=== PATIENT | female | born 1955 | race Caucasian/White ===

== ENCOUNTER 2024-07-10 09:46 | Outpatient (CLI) | payer MEDICARE, OTHER, SELFPAY ==
--- OUTSIDE RECORDS SUMMARY | 2024-07-10 10:50 | XMS_ITS | Clinical Summary ---
Author Organization [facility] Address [address] [place] [address] Phone Care Team Providers Care Lease Examiner Name Role Phone Unavailable Unavailable Unavailable Reason for Visit and Chief Complaint gynecologic annual exam - The Chief Complaint is: Annual Problems Includes: Problems addressed during this encounter and other active Problems All Visits Onset Date Resolved Date Provider Condition S tatus Chronic Obstructive Pulmonary Disease 11/17/2018 ROWAN INGRAM NP-BC Active Last Documented On 9 2:25PM ; [facility] Previous Colposcopy 01/15/2013 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 HYPERLIPIDEMIA NEC/NOS 01/20/2012 CE BIRCH MD Active Last Documented On 2 3:01PM ; [facility] HYPERTENSION NOS 12/09/2011 CE BIRCH MD Ac tive Last Documented On 2 10:05AM ; [facility] Plan of Treatment - Follow-up visit 1 year or as needed - Last Documented On 11/16/2017 1:10PM ; [facility] - Clinical summary provided to patient - Last Documented On 11/16/2017 1:10PM ; [facility] Instructions to patient Instructions for patient : B reast Self Exam discussed Last Documented On 8 12:16PM ; [facility] Lose weight Last Documented On 8 12:17PM ; [facility] Colonoscopy Handout given to patient Last Documented On 8 12:17PM ; [facility] Education and Decision Aids were provided during visit for: Patient Education: Daily rashi cium and vitamin D Last Documented On 8 12:16PM ; [facility] Patient Education: weight be aring exercise Last Documented On 8 12:16PM ; [facility] Smoking cessation advised Last Documented On 8 12:47PM ; [facility] Assessments Includes: Assessments from this encounter Findings - NORMAL FEMALE EXAM - Last Documented On 11/16/2017 1:10PM ; [facility] - Screening Malig. Neoplasm Rectum - Last Documented On 11/16/2017 1:10PM ; [facility] Instructions Includes: Instructions from this encounter Instructions to patient Instructions for patient : B reast Self Exam discussed Last Documented On 8 12:16PM ; [facility] Lose weight Last Documented On 8 12:17PM ; [facility] Colonoscopy Handout given to patient Last Documented On 8 12:17PM ; [facility] Education and Decision Aids were provided during visit for: Patient Education: Daily rashi cium and vitamin D Last Documented On 8 12:16PM ; [facility] Patient Education: weight be aring exercise Last Documented On 8 12:16PM ; [facility] Smoking cessation advised Last Documented On 8 12:47PM ; [facility] Medical Equipment - Implanted Devices Includes: Current Devices No Medical Equipment Recorded Medications Includes: Medications discussed during this encounter and other current Medications Discontinued / Stopped on this date on 12/09/2011 Tribenzor 40-10-25 MG OR TABS Provider: Diagnosis: Last Documented On 8 12:42PM By DONALDO DOYLE ; [facility] Current Medications (continue as prescribed) Co Q10 100MG Oral Capsule 11/17/2018 Provider: Diagnosis: Last Documented On 9 2:24PM By DESHAWN DOYLE ; [facility] Tribenzor 40-10-25MG Oral Tablet 11/17/2018 Provider : Diagnosis: Last Documented On 9 2:24PM By DESHAWN DOYLE ; [facility] Omeprazole 20MG Oral Tablet Delayed Release 2017 Provider: Diagnosis: Last Documented On 8 12:41PM By DONALDO DOYLE ; [facility] Bystolic 20MG Oral Tablet 11/16/2017 Provider: Diagnosis: Last Documented On 8 12:41PM By DONALDO DOYLE ; [facility] Fetzima 80MG Oral Capsule Extended Release 24 Hour 11/2017 Provider: Diagnosis: Last Documented On 8 12:42PM By DONALDO DOYLE ; [facility] Biotin 5000MCG Oral Capsule 11/16/2017 Provider: Diagnosis: Last Documented On 8 12:42PM By DONALDO DOYLE ; [facility] Fish Oil 1000MG Oral Capsule 11/16/2017 Provider : Diagnosis: Last Documented On 8 12:42PM By DONALDO DOYLE ; [facility] Oamdegwqjj-Zdhxjgdupo-JQHC 40-10-25MG Oral Tablet 11/2017 Provider: Diagnosis: Last Documented On 8 12:43PM By DONALDO DOYLE ; [facility] Welchol 625 MG OR TABS 01/15/2013 Provider: Diagnosis: Last Documented On 01/15/2013 1:05PM By DONALDO DOYLE ; [facility] Bystolic 5 MG OR TABS 12/09/2011 Provider: Diagnosis: Last Documented On 12/09/2011 10:03AM By AV CORCORAN ; [facility] Spiriva HandiHaler 18 MCG IN CAPS 12/09/2011 Provide r: Diagnosis: Last Documented On 12/09/2011 10:04AM By AV CORCORAN ; [facility] Past Medications on file Keflex 500 MG OR CAPS 01/30/2008 - 02/06/2008 Provider : Diagnosis: Last Documented On 06/09/2009 12:22PM By VIRIDIANA PINTO ; [facility] Medications Administered Includes: Administered Medications from this encounter No Administered Medications Recorded Vital Signs Includes: Vital Signs from this encounter Vital Name 11/16/2017 12:51P Blood Pressure Sitting L 148/70 BP Cuff Size Large Height (in) 62 Weight (lb) 200 Body Mass Index (kg/m2) 36.6 Body Surface Area (m2) 1.9 Last Documented: On 11/16/2017 12:54P M ; [facility] Results Includes: Results discussed during this encounter No Results Recorded For Specified Dates History of Present Illness Includes: History of Present Illness from this encounter HPI PREM GAMBINO is a 62 year old female. - Medication list reviewed - PRIMARY CARE PROVIDER : Dr Turcios Social History Description Last Updated Alcohol use 11/16/2017 Last Documented On 8 1:10PM ; [facility] In monogamous relationship 11/16/2017 Last Documented On 8 1:10PM ; [facility] Non-smoker 11/16/2017 Last Documented On 8 1:10PM ; [facility] Not using drugs 11/16/2017 Last Documented On 8 1:10PM ; [facility] Sexually active with 1 partners in the l ast year 11/16/2017 Last Documented On 8 1:10PM ; [facility] Smoking status : Current everyday smoker 11/16/2017 Last Documented On 8 1:10PM ; [facility] Rastafarian affiliation HINDU 8 Last Documented On 8 1:10PM ; [facility] Procedures and Surgical History Includes: Procedures from this encounter Procedures Code Diagnosis Performing Provider Service L ocation Service Date low fat diet Last Documented On 8 12:17PM ; [facility] fecal occult blood test was negative 38222 Last Documented On 8 12:16PM ; [facility] normal history of Pap smear of cervix Last Documented On 8 12:56PM ; [facility] Cervical Pap Smear performed [id number] Last Documented On 8 12:17PM ; [facility] Surgical History Last Updated Surgical / procedural histor y orthroscopic left knee surg ~d&c ~bile duct 11/16/2017 Last Documented On 8 1:10PM ; [facility] Dilation + Curettage 11/16/2017 Last Documented On 8 1:10PM ; [facility] Medical History Includes: Medical History addressed during this encounter Description Last Updated History of complete colonoscopy [address] chaney repeat in 10 years 11/16/2017 Last Documented On 8 1:10PM ; [facility] Result: normal @cne 11/16/2017 Last Documented On 8 1:10PM ; [facility] History of chronic obstructive pulmonary disease 11/16/2017 Last Documented On 8 1:10PM ; [facility] section 11/16/2017 Last Documented On 8 1:10PM ; [facility] Sexually active 11/16/2017 Last Documented On 8 1:10PM ; [facility] Vaginal delivery 11/16/2017 Last Documented On 8 1:10PM ; [facility] History of Pap smear done 01/15/201311/2017 Last Documented On 8 1:10PM ; [facility] History of screening mammogram was perfo rmed 09/201711/16/2017 Last Documented On 8 1:10PM ; [facility] Result: normal 11/16/2017 Last Documented On 8 1:10PM ; [facility] FREQUENT UTI'S ~D & C 11/16/2017 Last Documented On 8 1:10PM ; [facility] 3 11/16/2017 Last Documented On 8 1:10PM ; [facility] History of benign essential hypertension 11/16/2017 Last Documented On 8 1:10PM ; [facility] History of hyperlipidemia 11/16/2017 Last Documented On 8 1:10PM ; [facility] History of menopause lmp more than 5 yrs ago 11/16/2017 Last Documented On 8 1:10PM ; [facility] LMP: 2003 11/16/2017 Last Documented On 8 1:10PM ; [facility] Para 3 11/16/2017 Last Documented On 8 1:10PM ; [facility] Family History Includes: Family History addressed during this encounter Description Last Updated Maternal history of diabetes mellitus si ster, mother 11/16/2017 Last Documented On 8 1:10PM ; [facility] Maternal history of hypertension mother 11/16/2017 Last Documented On 8 1:10PM ; [facility] Paternal history of family history of he art disease father 11/16/2017 Last Documented On 8 1:10PM ; [facility] Review of Systems Includes: Review of Systems from this encounter Gastrointestinal: No pelvic pain. Genitourinary: No postmenopausal bleeding. No vaginal discharge. Mental Status Includes: Mental Status from this encounter No Mental Status Recorded Functional Status Includes: Functional Status from this encounter No Functional Status Recorded Physical Exam Includes: Physical Exam from this encounter Allergies Includes: Active Allergies Substance Type Reaction Onset Date Resolved Date Statu s Tetanus Toxoid Adsorbed Allergy 11/16/2017 Active Last Documented On 9 2:23PM ; [facility] Codeine Allergy 06/09/2009 Active Last Documented On 9 2:23PM ; [facility] Encounters Encounter Provider Location Date Check-In Time Check-Out Time Diagnosis 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 Neoplasm Rectum,Normal Female Exam Clinical Notes Includes: Clinical Notes from this encounter No Clinical Notes Recorded
--- OUTSIDE RECORDS SUMMARY | 2024-07-10 10:50 | XMS_ITS | Clinical Summary ---
Author Organization [facility] Address [address] [place] [address] Phone Care Team Providers Care Oval Or Circular Glass Cutter Name Role Phone Unavailable Unavailable Unavailable Reason for Visit and Chief Complaint [Patient Encounter] Problems Includes: Problems addressed during this encounter and other active Problems All Visits Onset Date Resolved Date Provider Condition S tatus Chronic Obstructive Pulmonary Disease 11/17/2018 ROWAN INGRAM NP-BC Active Last Documented On 9 2:25PM ; [facility] Previous Colposcopy 01/15/2013 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 HYPERLIPIDEMIA NEC/NOS 01/20/2012 CE BIRCH MD Active Last Documented On 2 3:01PM ; [facility] HYPERTENSION NOS 12/09/2011 CE BIRCH MD Ac tive Last Documented On 2 10:05AM ; [facility] Plan of Treatment No Plan of Treatment Recorded Assessments Includes: Assessments from this encounter No Assessments Recorded Medical Equipment - Implanted Devices Includes: Current Devices No Medical Equipment Recorded Medications Includes: Medications discussed during this encounter and other current Medications Current Medications (continue as prescribed) Co Q10 100MG Oral Capsule 11/17/2018 Provider: Diagnosis: Last Documented On 9 2:24PM By DESHAWN DOYLE ; [facility] Tribenzor 40-10-25MG Oral Tablet 11/17/2018 Provider : Diagnosis: Last Documented On 9 2:24PM By DESHAWN DOYLE ; [facility] Omeprazole 20MG Oral Tablet Delayed Release 2017 Provider: Diagnosis: Last Documented On 8 12:41PM By DONALDO DOYLE ; [facility] Bystolic 20MG Oral Tablet 11/16/2017 Provider: Diagnosis: Last Documented On 8 12:41PM By DONALDO DOYLE ; [facility] Fetzima 80MG Oral Capsule Extended Release 24 Hour 11/2017 Provider: Diagnosis: Last Documented On 8 12:42PM By DONALDO DOYLE ; [facility] Biotin 5000MCG Oral Capsule 11/16/2017 Provider: Diagnosis: Last Documented On 8 12:42PM By DONALDO DOYLE ; [facility] Fish Oil 1000MG Oral Capsule 11/16/2017 Provider : Diagnosis: Last Documented On 8 12:42PM By DONALDO DOYLE ; [facility] Nwhpmpymyp-Dijzvzbzbk-PSAW 40-10-25MG Oral Tablet 11/2017 Provider: Diagnosis: Last Documented On 8 12:43PM By DONALDO DOYLE ; [facility] Welchol 625 MG OR TABS 01/15/2013 Provider: Diagnosis: Last Documented On 01/15/2013 1:05PM By DONLADO DOYLE ; [facility] Bystolic 5 MG OR TABS 12/09/2011 Provider: Diagnosis: Last Documented On 12/09/2011 10:03AM By AV CORCORAN ; [facility] Spiriva HandiHaler 18 MCG IN CAPS 12/09/2011 Provide r: Diagnosis: Last Documented On 12/09/2011 10:04AM By AV CORCORAN ; [facility] Medications Administered Includes: Administered Medications from this encounter No Administered Medications Recorded Results Includes: Results discussed during this encounter No Results Recorded For Specified Dates History of Present Illness Includes: History of Present Illness from this encounter No History of Present Illness Recorded Social History No Social History Recorded - Smoking Status Unknown Medical History Includes: Medical History addressed during this encounter No Medical History Recorded Family History Includes: Family History addressed during this encounter No Family History Recorded Review of Systems Includes: Review of Systems from this encounter No Review of Systems Recorded Mental Status Includes: Mental Status from this encounter No Mental Status Recorded Functional Status Includes: Functional Status from this encounter No Functional Status Recorded Physical Exam Includes: Physical Exam from this encounter No Physical Exam Recorded Allergies Includes: Active Allergies Substance Type Reaction Onset Date Resolved Date Statu s Tetanus Toxoid Adsorbed Allergy 11/16/2017 Active Last Documented On 9 2:23PM ; [facility] Codeine Allergy 06/09/2009 Active Last Documented On 9 2:23PM ; [facility] Encounters Encounter Provider Location Date Check-In Time Check- Out Time Diagnosis [Patient Encounter] ROWAN INGRAM [facility] BOAT GARNISHER 8 1:43PM 11:59PM Clinical Notes Includes: Clinical Notes from this encounter No Clinical Notes Recorded
--- OUTSIDE RECORDS SUMMARY | 2024-07-10 10:50 | XMS_ITS | Clinical Summary ---
Author Organization [facility] Virtual Care Address [address] [place] [id number] Phone Care Team Providers [employer] Lawyer Name Role Phone Sintia Santoyo [employer] Unavailable [phone] Davey Myles [employer] Unavailable [phone] Charlie Mtz MD Primary Care Provider [phone] Allergies Active Allergy Reactions Criticality Noted Date Comments Atorvastatin Muscle pain Medium 04/18/2019 Codeine Agitation Low Tetanus Vaccines And Toxoid Other (See comments) Low Local reaction Medications biotin 1 mg tablet Take 1 tablet (1,000 mcg total) by mouth daily Active aspirin 81 mg enteric coated tablet Take 1 tablet (81 mg total) by mouth daily Active diazePAM (VALIUM) 2 mg tablet Take 1 tablet (2 mg total) by mouth every 6 (six) hours as needed for anxiety 15 tablet 06/10/19 23 Active Additional Information Patient taking differently:2 mg oral Every 6 hours PRN, anxiety,Taking 1/2 tab, Reported on 06/16/2023 UNABLE TO FIND [employer] Collagen Active UNABLE TO FIND Tu Trim fit Active cholecalcifer ol (VITAMIN D-3) 2000 unit capsule Take 1 capsule (2,000 Units total) by mouth daily 60 capsule 3 12/16/19 23 Active meloxicam (MOBIC) 7.5 mg tablet Take 1 tablet (7.5 mg total) by mouth daily 90 tablet 04/20/19 24 Active albuterol HFA (Ventolin HFA) 90 mcg/actuation inhalerIndica tions:Centril obular emphysema (HCC) Inhale 2 puffs every 4 (four) hours as needed for wheezing 1 each 2 12/19/19 24 Active fluticasone propionate (FLONASE) 50 mcg/actuation nasal sprayIndicati ons:Seasonal allergies Administer 2 sprays into each nostril daily as needed for allergies 16 g 3 12/19/19 24 025 Active Bystolic 20 mg tablet Take 1 tablet (20 mg total) by mouth daily 90 tablet 3 01/23/20 24 Active olmesartan-am LODIPin-hcthi azid 40-10-25 mg tablet Take 1 tablet by mouth daily 90 tablet 3 01/23/20 24 Active Tradjenta 5 mg tablet Take 1 tablet (5 mg total) by mouth daily 90 tablet 3 01/23/20 24 025 Active tiZANidine (ZANAFLEX) 4 mg tablet Take 1 tablet (4 mg total) by mouth every 6 (six) hours as needed for muscle spasms 30 tablet 3 03/06/20 24 Active pravastatin (PRAVACHOL) 40 mg tablet Take 1 tablet (40 mg total) by mouth nightly 90 tablet 05/28/19 25 Active umeclidinium- vilanteroL (Anoro Ellipta) 62.5-25 mcg/actuation blister with device INHALE 1 PUFF BY MOUTH EVERY DAY - (DISCARD 6 WEEKS AFTER REMOVAL FROM FOIL TRAY OR WHEN COUNTER READS ZERO, WHICHEVER COMES FIRST) 3 each 05/29/19 25 Active omeprazole (PriLOSEC) 20 mg capsule TAKE ONE CAPSULE BY MOUTH EVERY DAY NEEDED 90 capsule 1 06/22/19 25 Active potassium chloride ER (KLOR-CON) 10 mEq CR tablet Take 1 tablet/capsule (10 mEq total) by mouth 2 (two) times a day 180 tablet/caps ule 3 06/22/19 25 026 Active sertraline (ZOLOFT) 50 mg tablet Take 2 tablets (100mg total) by mouth every day 180 tablet 2 06/29/19 25 Active potassium chloride ER (KLOR-CON) 10 mEq CR tablet Take 1 tablet/capsule (10 mEq total) by mouth 2 (two) times a day 025 Discontinued(Re order) omeprazole (PriLOSEC) 20 mg capsule TAKE ONE CAPSULE BY MOUTH EVERY DAY NEEDED 90 capsule 1 12/26/19 24 025 Discontinued sertraline (ZOLOFT) 50 mg tablet Take 1 tablet (50 mg total) by mouth daily for 14 days, THEN 2 tablets (100 mg total) daily. 194 tablet 03/06/20 24 025 Discontinued sertraline (ZOLOFT) 50 mg tablet TAKE ONE TABLET BY MOUTH EVERY DAY FOR 14 DAYS, THEN TAKE TWO TABLETS EVERY DAY 166 tablet 06/22/19 25 025 Discontinued Active Problems Problem Noted Date Diagnosed Date Degenerative disc disease, cervical 06/17/2022 Degenerative cervical spinal stenosis 06/17/2022 Cervicalgia 06/17/2022 Cervical myofascial pain syndrome 06/17/2022 Class 2 severe obesity due t o excess calories with serious comorbidity and body mass index (BMI) of 38.0 to 38.9 in adult 05/28/2021 Assessment & Plan (08/08/2023 1:15 PM CDT): Stable, patient is making dietary changes, monitoring high-calorie foods; exercising at least 30 minutes today; more active doing yd work, encouraged continue changes, continue monitoring diet to work towards weight loss Assessment & Plan (06/16/2023 1:29 PM AUDIO NARRATOR): Stable, generally well controlled, patient reports no significant weight loss, however she has been increasing exercise and watching diet Encourage 30 minutes moderate intensity exercise, limiting caloric intake through limiting high-calorie foods and portion size Assessment & Plan (09/02/2022 4:41 PM CDT): Not well controlled, patient is working on improvement; not started walking with group, invested in treadmill to help with daily activity Continue to encourage decreasing caloric intake through dietary changes and portion control Regular physical activity, 30 minutes moderate intensity exercise 5 days per week Assessment & Plan (12/15/2021 5:00 PM CDT): Stable, no significant changes to wait Encouraged patient continue with regular exercise, 30 minutes moderate intensity exercise 5 days per week, low-calorie diet Assessment & Plan (09/08/2021 2:07 PM CDT): Stable, not well controlled; patient has had a slow gain of weight; increased appetite since smoking cessation Encouraged patient continue to work on visual changes including oral fixations in order to reduce continued snacking and weight gain Assessment & Plan (07/09/2021 11:02 AM CDT): Mildly worsening, patient has about a 7 lb weight gain since last visit; may be secondary to smoking cessation Encouraged patient continue to work on dietary changes; if patient does have type 2 diabetes, would consider starting Semaglutide For blood sugar and weight control Assessment & Plan (05/28/2021 1:00 PM AUDIO NARRATOR): Not well controlled, encouraged patient continue to work on dietary changes to reduce caloric intake; encouraged patient to work on moderate density activity at least 30 minutes, 5 times per week Mild major depression 11/30/2020 Assessment & Plan (08/08/2023 1:15 PM CDT): Stable, well controlled; patient reports has some anxiousness with no medication Will restart sertraline at 25 mg daily; if symptoms worsen or side effects worsening; will evaluate for other treatment options Assessment & Plan (06/16/2023 1:30 PM AUDIO NARRATOR): Stable, well controlled, improving; patient reports she is more physically active, engaging in social activities, re-engage with holiness Would like to decrease Zoloft given vivid dreams Will decrease by 25 mg every 2 weeks; if patient has worsening depression, will adjust 2 different SSRI or SNRIs Assessment & Plan (12/15/2021 5:00 PM CDT): Stable, well controlled; continue sertraline 100 mg daily Assessment & Plan (09/08/2021 2:08 PM CDT): Stable, improving; patient reports in general she feels happy and has more energy, but she continues to have anxiety Patient reports she has some stressors at home, including will be starting dialysis soon Patient reports increasing activities, as well as going out with friends to do activities Increase sertraline to 100 mg daily to help with continued depressive symptoms Assessment & Plan (07/09/2021 11:02 AM CDT): Stable, well controlled; patient reports that anxiety is improved, still has occasional panic attacks, but generally much improved in frequency and severity Continue sertraline 50 mg daily Assessment & Plan (11/30/2020 1:40 PM CDT): Recommended therapy. She declined today. Will continue Fetzima 80 mg daily. Reviewed warning signs and symptoms of when to seek emergency care. Intestinal metaplasia of gastric mucosa 10/17/19 21 Hepatic steatosis 08/02/2020 Assessment & Plan (08/02/2020 3:32 PM CDT): Noted on imaging studies. There are function is normal. Monitor liver enzymes once or twice per year. Monitor her lipids and treat if needed. Patient will benefit from fish oil. Patient advised to continue taking fish oil. Atopic dermatitis 02/22/2020 Assessment & Plan (02/22/2020 12:16 PM AUDIO NARRATOR): Small patch of atopic dermatitis on mid back. Prescribed triamcinolone ointment b.i.d. p.r.n.. If worsening or not improving please contact the clinic. Psychophysiological insomnia 09/07/2019 Assessment & Plan (09/07/2019 1:30 PM CDT): Recommend melatonin p.r.n. for sleep. Continue CPAP. Avoid caffeine after noon. Discussed sleep hygiene. Can consider hydroxyzine p.r.n. for sleep if not improved. Osteopenia 04/27/2019 Assessment & Plan (11/24/2019 3:45 PM CDT): Recommend calcium and vitamin d supplement daily. Weight bearing exercise daily. Leukocytosis 04/17/2019 Assessment & Plan (11/24/2019 3:41 PM CDT): Repeat CBC today. Assessment & Plan (04/17/2019 2:34 PM AUDIO NARRATOR): Repeat CBC in 2 weeks. She was previously taking steroids during her ED visit which may have falsely elevated her white blood count. Vitamin D deficiency 04/17/2019 Assessment & Plan (02/22/2020 9:32 AM AUDIO NARRATOR): Last vitamin d level 12/07/2019 52. Recommend vitamin d3 2000 international units once daily. Assessment & Plan (11/24/2019 3:46 PM CDT): Continue vitamin d2 50,000 International units once weekly and repeat vitamin d level today. Assessment & Plan (04/17/2019 2:34 PM AUDIO NARRATOR): [place] [address] units once weekly. Get vitamin-D level in 2 weeks with labs. High risk of cardiac event 04/17/2019 Assessment & Plan (09/02/2022 4:40 PM CDT): Stable, well controlled; continue pravastatin 40 mg daily; continue ASA 81 mg daily Encourage risk modifications Assessment & Plan (04/17/2019 2:34 PM AUDIO NARRATOR): Patient's ASCVD risk score is 13.3%. I recommended that she be on statin instead of bile acid sequestrant for CV prophylaxis. Start atorvastatin 10 mg daily. Mixed hyperlipidemia 04/17/2019 Assessment & Plan (12/19/2023 10:41 AM CDT): Chronic, stable, well controlled Continue Pravastatin 40 mg daily Assessment & Plan (06/16/2023 1:29 PM AUDIO NARRATOR): Stable, well controlled, lipids in optimal range Continue pravastatin 40 mg daily Assessment & Plan (06/09/2022 4:56 PM AUDIO NARRATOR): Well controlled, lipids at target Continue pravastatin 40 mg nightly Assessment & Plan (12/15/2021 4:59 PM CDT): Stable, well controlled; continue pravastatin 40 mg nightly Assessment & Plan (09/08/2021 2:06 PM CDT): Stable, generally well controlled; continue pravastatin 40 mg nightly Assessment & Plan (07/09/2021 11:01 AM CDT): Stable, well controlled; continue pravastatin 40 mg nightly Assessment & Plan (05/28/2021 12:58 PM AUDIO NARRATOR): Stable, well controlled last lipid panel demonstrated normal total cholesterol, LDL mildly elevated 114; continue to monitor encourage low-fat high-fiber diet Continue pravastatin 40 mg daily Assessment & Plan (11/30/2020 1:37 PM CDT): Lipids are well controlled on pravastatin 40 mg once daily. Assessment & Plan (02/22/2020 12:13 PM AUDIO NARRATOR): Lipids are well controlled on pravastatin 40 mg once daily. Assessment & Plan (11/24/2019 3:43 PM CDT): Continue pravastatin 40 mg daily. Repeat lipid profile today. Recommended Mediterranean diet. Do not think keto diet facilitates a heart healthy diet. Assessment & Plan (09/07/2019 1:31 PM CDT): Continue pravastatin 40 mg daily. Repeat lipid profile in November. Assessment & Plan (04/17/2019 2:35 PM AUDIO NARRATOR): Lipid abnormalities are unchanged. Nutritional counseling was provided., Pharmacotherapy as ordered. and Stop Welchol. Start atorvastatin 10 mg once daily Patient's ASCVD risk score is 13.3%. I recommended that she be on statin instead of bile acid sequestrant for CV prophylaxis. Start atorvastatin 10 mg daily. Educated patient on potential side effects, muscle aches and yellowing of the skin or eyes. Lipids will be reassessed in 3 months. CMP and lipids to be repeated in 3 months. Medicare annual wellness visit, subsequent 11/15 Assessment & Plan (11/24/2019 3:43 PM CDT): See attached patient Education. PPSV23 today. Recommend Shingrix vaccine. Mammogram also ordered today. Assessment & Plan (11/15/2018 2:48 PM CDT): See attached patient Education. DEXA scan ordered today. She was given her pneumococcal vaccine today. Mammogram also ordered today. She will be due for her colonoscopy next year Essential hypertension 07/12/2018 Assessment & Plan (12/19/2023 10:40 AM CDT): Chronic, stable, well controlled BP at goal at visit; 124/76 Continue Bystolic 20 mg and Gzrjwloxoi-cyqfamepmf-UBMI 40-10-25 mg daily Assessment & Plan (08/08/2023 1:14 PM CDT): Stable, well controlled; blood pressure goals; continue Bystolic 20 mg daily, wsvnnhoqrz-uzduifmuge-tnyhmeybackvwzhufwg 40-10-25 mg Assessment & Plan (06/16/2023 1:29 PM AUDIO NARRATOR): Stable, well controlled, blood pressure at goal; patient reports no chest pain or headaches Continue Bystolic 20 mg daily, ufstbrzfdj-txmddswnua-uyrhefufdpgojovzcvg 40-10-251 tablet daily; Assessment & Plan (09/02/2022 4:39 PM CDT): Stable, well controlled; blood pressure at target No chest pain or headaches Continue Bystolic 20 mg daily, Tribenzor 40-10-251 tablet daily Assessment & Plan (06/09/2022 4:57 PM AUDIO NARRATOR): Stable, blood pressure at target Continue Tribenzor 40-10-25 mg daily; furosemide 20 mg b.i.d. as needed; Bystolic 20 mg Assessment & Plan (12/15/2021 4:59 PM CDT): Stable, generally well controlled, with occasional orthostatics No chest pain or headaches Continue Bystolic 20 mg daily, furosemide 20 mg b.i.d. p.r.n.; Tribenzor 40-10-25 mg 1 tablet daily Assessment & Plan (09/08/2021 2:06 PM CDT): Stable, well controlled; blood pressure at target today Continue Tribenzor 40- 10-25 mg daily Assessment & Plan (07/09/2021 11:00 AM CDT): Stable, well controlled; blood pressure at target today continue Bystolic 20 mg daily, Tribenzor 1 tablet daily Assessment & Plan (05/28/2021 12:59 PM AUDIO NARRATOR): Stable, generally well controlled; blood pressure mildly elevated today, though blood pressure was normal approximately 2 weeks ago during clinic visit Continue Tribenzor 40- 10- 25 mg daily, Bystolic 20 mg daily Assessment & Plan (11/30/2020 1:36 PM CDT): Hypertension is improved. Continue current treatment regimen. Dietary sodium restriction. Weight loss. Regular aerobic exercise. Stop smoking. Continue current medications. Continue Tribenzor 40-10-25 mg daily and Bystolic 20 mg daily. Blood pressure will be reassessed at the next regular appointment. Assessment & Plan (02/22/2020 12:14 PM AUDIO NARRATOR): Hypertension is improved. Continue current treatment regimen. Dietary sodium restriction. Weight loss. Regular aerobic exercise. Stop smoking. Continue current medications. Continue Tribenzor 40-10-25 mg daily and Bystolic 20 mg daily. Blood pressure will be reassessed at the next regular appointment. Assessment & Plan (11/24/2019 3:40 PM CDT): Hypertension is slightly elevated today, likely due to increased sodium in diet. Continue current treatment regimen. Dietary sodium restriction. Weight loss. Regular aerobic exercise. Stop smoking. Continue current medications. Continue Tribenzor 40-10-25 mg daily and Bystolic 20 mg daily. Blood pressure will be reassessed at the next regular appointment. Assessment & Plan (04/17/2019 2:32 PM AUDIO NARRATOR): Hypertension is improving with treatment. Continue current treatment regimen. Dietary sodium restriction. Weight loss. Regular aerobic exercise. Stop smoking. Continue current medications. Continue Tribenzor 40-10-25 mg daily and Bystolic 20 mg daily. Blood pressure will be reassessed at the next regular appointment. Assessment & Plan (11/15/2018 2:46 PM CDT): Hypertension is improving with treatment. Continue current treatment regimen. Dietary sodium restriction. Weight loss. Regular aerobic exercise. Stop smoking. Continue current medications. Continue Tribenzor 40-10-25 mg daily and Bystolic 20 mg daily. CMP and microalbumin due 04/2019 Blood pressure will be reassessed at the next regular appointment. Assessment & Plan (09/24/2018 7:56 AM CDT): Hypertension is improving with treatment. Normotensive on repeat. Continue current treatment regimen. Dietary sodium restriction. Weight loss. Regular aerobic exercise. Stop smoking. Continue current medications. Continue Tribenzor 40-10-25 mg daily and Bystolic 20 mg daily. CMP and microalbumin due 04/2019 Blood pressure will be reassessed at the next regular appointment. Assessment & Plan (07/12/2018 10:48 AM CDT): Hypertension is improving with treatment. Continue current treatment regimen. Dietary sodium restriction. Weight loss. Regular aerobic exercise. Stop smoking. Continue current medications. Continue Tribenzor 40-10-25 mg daily and Bystolic 20 mg daily. CMP and microalbumin due 04/2019 Blood pressure will be reassessed at the next regular appointment. Tobacco use disorder, mild, in early remission 0 07/12/2018 Assessment & Plan (08/08/2023 1:14 PM CDT): Stable, well controlled; has some cravings, but remains smoke-free; encouraged continued work to remain tobacco free Assessment & Plan (09/02/2022 4:42 PM CDT): Continue Spiriva 1 puff daily for dyspnea Assessment & Plan (09/08/2021 2:08 PM CDT): Stable, improving; patient reports she is no longer smoking Patient reports some weight gain since smoking cessation, will continue to encourage dietary changes to reduce caloric intake encouraged patient continue with smoking cessation Assessment & Plan (07/09/2021 11:03 AM CDT): Stable, well controlled; patient reports she quit smoking approximately 10 days ago; noted patient on lifestyle changes, give patient education regarding health benefits expected from smoking cessation Will continue to monitor encouraged patient to maintain cessation Assessment & Plan (05/28/2021 1:02 PM AUDIO NARRATOR): Patient continues to smoke, smoking about 1 pack per day Encouraged patient to continue to work towards complete cessation Patient understands importance of smoking, but is not yet gotten to change mind set Assessment & Plan (11/30/2020 1:39 PM CDT): Encourage smoking cessation. Assessment & Plan (02/22/2020 12:12 PM AUDIO NARRATOR): Encourage smoking cessation. Had quit for almost 1 month in May 2019 in then the pandemic happened and she started smoking again. When she previously quit she did not use any pharmacotherapy. She cuts draws in put them in in old cigarette container and she would chew on the straws when she would talk on the phone. Assessment & Plan (11/24/2019 3:46 PM CDT): Encourage smoking cessation. Had quit for almost 1 month in May 2019 in then the pandemic happened and she started smoking again. When she previously quit she did not use any pharmacotherapy. She cuts draws in put them in in old cigarette container and she would chew on the straws when she would talk on the phone. Assessment & Plan (04/17/2019 2:33 PM AUDIO NARRATOR): Encourage smoking cessation. Assessment & Plan (11/15/2018 2:44 PM CDT): Advised to quit smoking Assessment & Plan (09/24/2018 7:59 AM CDT): -Advised patient to quit smoking. -Discussed options for smoking cessation: bupropion ER, Chantix, nicotine patches, and nicotine gum. -Discussed health ramifications from smoking including risk for cardiovascular events, lung disease, heart disease, and cancer. -See patient instructions. -Patient declined at this visit. Will call if she would like to start a medication for smoking cessation. -Continue to address at subsequent visits. Assessment & Plan (07/12/2018 10:50 AM CDT): -Advised patient to quit smoking. -Discussed options for smoking cessation: bupropion ER, nicotine patches, and nicotine gum. -Eduction provided in patient instruction. -Patient declined at this visit. -Continue to address at subsequent visits. Prediabetes 07/12/2018 Assessment & Plan (09/02/2022 4:39 PM CDT): Stable, well controlled, last A1c was 6.9; encourage low-carbohydrate diet Continue Tradjenta 5 mg daily Assessment & Plan (06/09/2022 4:59 PM AUDIO NARRATOR): Stable, last A1c was 6.2; at target Encourage low-carbohydrate diet ; continue Tradjenta 5 mg daily Continue to monitor Assessment & Plan (12/15/2021 4:59 PM CDT): Stable, well controlled; continue Tradjenta 5 mg daily Assessment & Plan (07/09/2021 11:01 AM CDT): Stable, well controlled; last A1c was 6.6; will continue to monitor, patient may be developing diabetes Continue Tradjenta 5 mg daily Assessment & Plan (05/28/2021 12:59 PM AUDIO NARRATOR): Continue to monitor, check A1c to evaluate blood sugars are continue to elevate Continue Tradjenta 5 mg Assessment & Plan (11/30/2020 1:38 PM CDT): A1c today Continue Tradjenta 5 mg once daily. Assessment & Plan (02/22/2020 12:13 PM AUDIO NARRATOR): A1c well controlled at 6.3. Continue Tradjenta 5 mg once daily. Assessment & Plan (11/24/2019 3:45 PM CDT): Patient on Tradjenta 5 mg daily. Continue medication and diet lifestyle modifications. Assessment & Plan (04/17/2019 2:32 PM AUDIO NARRATOR): Patient on Tradjenta 5 mg daily. A1c 6.1. Continue medication and diet lifestyle modifications. Assessment & Plan (11/15/2018 2:45 PM CDT): Continue medical therapy and lifestyle modifications. Assessment & Plan (09/24/2018 7:58 AM CDT): A1c improved. Continue diet and lifestyle modifications. Assessment & Plan (07/12/2018 10:49 AM CDT): Last A1c April 2018 was 6.2. Discussed lifestyle modifications and repeat A1c in September 2018. Continue Tradjenta 5 mg daily Chronic obstructive pulmonary disease 07/12/2018 Assessment & Plan (08/08/2023 1:14 PM CDT): Stable, well controlled, improving; patient reports she is breathing better; occasionally has some dyspnea associated with panic attacks or anxiety Continue albuterol p.r.n., Anoro Ellipta 1 puff daily Assessment & Plan (06/09/2022 4:58 PM AUDIO NARRATOR): Stable, improving, quit smoking June 25, 2021; continues to have some episodes of shortness of breath, unclear if due to panic attack verses COPD exacerbation Continue albuterol p.r.n. for dyspnea; continue Spiriva 1 capsule daily Assessment & Plan (12/15/2021 5:01 PM CDT): Stable, well controlled; continue Spiriva 1 capsule daily; albuterol p.r.n. Assessment & Plan (07/09/2021 11:03 AM CDT): Stable, patient had some decreased oxygen saturations with mask on, which improved with out mass Otherwise does not report much dyspnea, though does report decreased insurance and fci Discussed with patient importance of continued activity and exercise in order to maintain pulmonary help Congratulated patient on smoking cessation will continue Spiriva 18 mcg daily Assessment & Plan (05/28/2021 1:01 PM AUDIO NARRATOR): Stable, generally well controlled; patient has few limitations to activity due to COPD Continue Spiriva daily Assessment & Plan (11/30/2020 1:36 PM CDT): COPD is improving with treatment. Discussed monitoring symptoms and use of quick-relief medications and contacting us early in the course of exacerbations. Warning signs of respiratory distress were reviewed with the patient. Counseled to avoid exposure to cigarette smoke. Continue current medications. Continue Spiriva 1 puff daily and Ventolin p.r.n. Assessment & Plan (02/22/2020 12:16 PM AUDIO NARRATOR): COPD is worsening. Discussed monitoring symptoms and use of quick-relief medications and contacting us early in the course of exacerbations. Warning signs of respiratory distress were reviewed with the patient. Counseled to avoid exposure to cigarette smoke. Continue current medications. Continue Spiriva 1 puff daily and Ventolin p.r.n. Prednisone ordered for COPD exacerbation today. Lungs are CTA. I did recommend COVID -19 testing considering her new cough and chronic condition of COPD. If cough is worsening or not improving within 48 hours of being on the steroids recommend contacting the clinic. Will hold on chest x-ray today given she is going to be ruled out for COVID -19. If COVID -19 is negative and she continues to have cough despite the prednisone would consider chest x-ray. [facility]. I recommended that she follow up with pulmonology- referral placed today. Assessment & Plan (11/24/2019 3:40 PM CDT): COPD is improving with treatment. Discussed monitoring symptoms and use of quick-relief medications and contacting us early in the course of exacerbations. Warning signs of respiratory distress were reviewed with the patient. Counseled to avoid exposure to cigarette smoke. Continue current medications. Continue Spiriva 1 puff daily and Ventolin p.r.n. Return if worsens or fails to improve May consider addition of ICS at onset of URI for patient due to intolerability of oral steroids. Assessment & Plan (04/17/2019 2:32 PM AUDIO NARRATOR): COPD is improving with treatment. Discussed monitoring symptoms and use of quick-relief medications and contacting us early in the course of exacerbations. Warning signs of respiratory distress were reviewed with the patient. Counseled to avoid exposure to cigarette smoke. Continue current medications. Continue Spiriva 1 puff daily and Ventolin p.r.n. Return if worsens or fails to improve May consider addition of ICS at onset of URI for patient due to intolerability of oral steroids. Assessment & Plan (11/15/2018 2:47 PM CDT): COPD is improving with treatment. Discussed monitoring symptoms and use of quick-relief medications and contacting us early in the course of exacerbations. Warning signs of respiratory distress were reviewed with the patient. Counseled to avoid exposure to cigarette smoke. Continue current medications. Continue Spiriva 1 puff daily and Ventolin p.r.n. Return if worsens or fails to improve Assessment & Plan (07/12/2018 10:47 AM CDT): COPD is improving with treatment. Discussed monitoring symptoms and use of quick-relief medications and contacting us early in the course of exacerbations. Warning signs of respiratory distress were reviewed with the patient. Counseled to avoid exposure to cigarette smoke. Continue current medications. Continue Spiriva 1 puff daily and Ventolin p.r.n. Return if worsens or fails to improve Anxiety 07/12/2018 Assessment & Plan (12/07/2022 3:37 PM CDT): Stable, well controlled; good relief with medical cannabis; improves energy level and sleep while improving anxiety levels Assessment & Plan (06/09/2022 4:58 PM AUDIO NARRATOR): Not well controlled, patient reports symptoms beginning worse; patient reports episodes of agoraphobia; worry about leaving house due to concerns for panic attacks Patient every 6 months ago; continues to have grief related to also Refer to [facility] for individual counseling Continue sertraline 100 mg daily; start diazepam 2 mg p.r.n. for panic attacks Assessment & Plan (05/28/2021 1:01 PM AUDIO NARRATOR): Not well controlled, patient has multiple recent stressors which worsened anxiety, causing occasional episodes of panic attacks Patient previously on Fetzima with no relief; transition to sertraline 50 mg daily at this time patient declined counseling, will readdress at follow-up Assessment & Plan (11/24/2019 3:40 PM CDT): Reports stable on current medication. Assessment & Plan (07/12/2018 10:46 AM CDT): Anxiety is well controlled on current dose of Fetzima. Pt unsure of exact dose. She will check her medication at home and call with exact dose when needing refill. Seasonal allergies 07/12/2018 Assessment & Plan (06/16/2023 1:30 PM AUDIO NARRATOR): Not well controlled, has been having some difficulty; recently neighbor mode throwing up significant amounts of dust which worsened her symptoms Hoarse voice and nasal changes in swelling, especially morning Continue daily antihistamine, continue Flonase 2 sprays 1-2 times daily Assessment & Plan (12/15/2021 5:00 PM CDT): Generally stable; patient reports symptoms, on-off Continue [id number] antihistamine; Flonase 2 sprays each nostril daily as needed Assessment & Plan (09/07/2019 1:32 PM CDT): Sinusitis symptoms currently resolved. Can continue Flonase and Mucinex daily. Recommend saline rinses daily. Reviewed allergen control. Call if worsening or failing to improve. Assessment & Plan (09/24/2018 7:58 AM CDT): -Discussed allergy control in the home including washing sheets in hot water, avoid opening windows, shower before bed. -add fluticasone nasal spray, return if worsening or failing to improve. Assessment & Plan (07/12/2018 10:50 AM CDT): Patient has a history of spring allergies. Recommended fluticasone nasal spray 2 sprays each nostril once daily at night for allergy symptoms. Return to clinic if worsening or failing to improve. Gastroesophageal reflux disease without esophagi tis 09/28/2017 Assessment & Plan (11/30/2020 1:39 PM CDT): Seeing GI. Reviewed instructions per GI to gradually wean Pantoprazole if able to tolerate. Discussed avoiding caffeine, limiting NSAIDS, and avoiding spicy foods that may trigger GERD symptoms. -Encouraged patient to prop head of bed at night with 4 x 4s. -Avoid eating 2 hours prior to bed. Assessment & Plan (11/15/2018 2:46 PM CDT): Well controlled on omeprazole 20 mg daily. Continue current therapy. Assessment & Plan (07/12/2018 10:49 AM CDT): Well controlled on omeprazole 20 mg daily. Continue current therapy. Assessment & Plan (09/28/2017 9:05 AM CDT): Chronic. She is responding well to therapy with omeprazole. She was advised to continue omeprazole and anti-reflux measures. Advised to see me p.r.n.. Abnormal finding on GI tract imaging 06/23/2017 Assessment & Plan (06/23/2017 1:07 PM CDT): Abnormal HIDA scan, suggestive of possible spasm versus partial common bile duct obstruction. Since the patient was having right upper quadrant abdominal pain, I was concerned about sphincter of Oddi dysfunction. The liver function tests were normal. ERCP was scheduled but the patient declines at this time. She was informed of the risk of possible missed lesion. She was advised to call the office if she starts having abdominal pain again or if she is having itching, nausea vomiting or weight loss. RAS (obstructive sleep apnea) Overview (07/12/2018): Cpap at night Assessment & Plan (11/24/2019 3:44 PM CDT): Stable on CPAP- 10 cm H2O . Continue current therapy Assessment & Plan (11/15/2018 2:45 PM CDT): Stable on CPAP. Continue current therapy Assessment & Plan (09/24/2018 7:57 AM CDT): Doing well on CPAP at 10 cm of water per day. Reordered supplies today. Assessment & Plan (07/12/2018 10:49 AM CDT): Stable on CPAP. Continue current therapy Resolved Problems Problem Noted Date Diagnosed Date Resolved Date Acute respiratory failure with hypoxia 03/13/2023 06/16/2023 Encounter for follow-up 09/10/2022 03/0 10/2023 Assessment & Plan (09/10/2022 3:37 PM CDT): Patient presents for 3 month follow-up after starting a new CPAP machine Patient states that her setting is on a fixed 10. However, she states that her old machine would titrate up to 10. Patient states she feels that her current machine has too much pressure to start off with Unable to find any orders that correlate with variable rate Patient only to complete another sleep study if she does not get relief in 1 week Gastroesophageal reflux disease 10/16/2020 11/30/2020 S/P cholecystectomy 10/16/2020 12/19/19 24 Overview (11/30/2020): 08/13/2020 Nausea 10/16/2020 11/30/2020 Personal history of gallstones 08/05/2020 08/19/2020 Assessment & Plan (08/05/2020 10:20 AM CDT): Patient with symptomatic coli lithiasis. We will set her up for cholecystectomy. Risks and benefits have been explained. Pre-admission testing will be sent in. All questions ordered. Symptomatic cholelithiasis 08/05/2020 0 11/30/2020 Overview (08/05/2020): Added automatically from request for surgery [id number] Assessment & Plan (09/09/2020 5:51 PM CDT): Diet as tolerates. Bowel regimen as needed. Activities unrestricted. Patient will call back with any further questions or concerns. Assessment & Plan (09/02/2020 10:25 AM CDT): Patient with a very small seroma/old hematoma underneath subxiphoid incision. No further drainage from the area. Just to ensure no underlying infection in the fluid collection will put her on a small course of antibiotics. We will see her back next week to reassess Assessment & Plan (08/19/2020 11:08 AM CDT): Diet as tolerated. Okay to return to work with light duty. No heavy lifting greater than 20 lb for 4 weeks. No submerging incisions for 4 weeks. Please call for any further questions or concerns. Microscopic hematuria 05/19/20202023 Overview (12/01/2020): 12/01/2020 urology consultation. Assessment & Plan (09/08/2021 2:09 PM CDT): Has been present for extended time; may be secondary to recurrent UTIs Will continue to monitor, patient continues to have microscopic hematuria in setting of no urinary tract infection, will consider further evaluation and Urology evaluation especially given history of tobacco use Assessment & Plan (11/30/2020 1:37 PM CDT): Will repeat UA today. If still present recommend urology work up. Assessment & Plan (05/19/2020 4:51 PM AUDIO NARRATOR): Noted from recent urinalysis. Will repeat urinalysis to better evaluate her urine. Upper abdominal pain 05/08/2020 021 Overview (05/08/2020): Added automatically from request for surgery [id number] Assessment & Plan (05/19/2020 4:51 PM AUDIO NARRATOR): Patient has chronic intermittent upper abdominal pain which may indicate biliary dysfunction or peptic ulcer disease. To further evaluate we will check labs including CBC and CMP. Schedule upper endoscopy. Start Protonix 40 mg daily instead of omeprazole. Follow-up in 1 month. Also will get and right upper quadrant ultrasound and HIDA scan. Suspected COVID-19 virus infection 02/22/2020 11/30/2020 Assessment & Plan (02/22/2020 12:13 PM AUDIO NARRATOR): Patient has a new cough over the last 1 week. I recommended testing for COVID - 19 considering her new symptoms. Reviewed self isolation procedures. Referral for testing placed today. Abnormal feces 05/10/2019 12/19/2023 Overview (05/10/2019): Added automatically from request for surgery [id number] Obesity (BMI 30-39.9) 07/12/20182021 Assessment & Plan (11/30/2020 1:37 PM CDT): Obesity is worsening. Discussed the patient's BMI. The BMI is above average; BMI management plan is completed. General weight loss/lifestyle modification strategies discussed (elicit support from others; identify saboteurs; non-food rewards, etc). Behavioral treatment: stress management. Diet interventions: moderate (500 kCal/d) deficit diet. Informal exercise measures discussed, e.g. taking stairs instead of elevator. Regular aerobic exercise program discussed. Recommended dash and Mediterranean diet. Focus on 30 minutes of exercise daily. Assessment & Plan (11/24/2019 3:44 PM CDT): Obesity is worsening. Discussed the patient's BMI. The BMI is above average; BMI management plan is completed. General weight loss/lifestyle modification strategies discussed (elicit support from others; identify saboteurs; non-food rewards, etc). Behavioral treatment: stress management. Diet interventions: moderate (500 kCal/d) deficit diet. Informal exercise measures discussed, e.g. taking stairs instead of elevator. Regular aerobic exercise program discussed. Recommended dash and Mediterranean diet. Focus on 30 minutes of exercise daily. Assessment & Plan (04/17/2019 2:32 PM AUDIO NARRATOR): Obesity is worsening. Discussed the patient's BMI. The BMI is above average; BMI management plan is completed. General weight loss/lifestyle modification strategies discussed (elicit support from others; identify saboteurs; non-food rewards, etc). Behavioral treatment: stress management. Diet interventions: moderate (500 kCal/d) deficit diet. Informal exercise measures discussed, e.g. taking stairs instead of elevator. Regular aerobic exercise program discussed. Assessment & Plan (11/15/2018 2:46 PM CDT): Obesity is improving with treatment. Discussed the patient's BMI. The BMI is above average; BMI management plan is completed. General weight loss/lifestyle modification strategies discussed (elicit support from others; identify saboteurs; non-food rewards, etc). Behavioral treatment: stress management. Diet interventions: moderate (500 kCal/d) deficit diet. Informal exercise measures discussed, e.g. taking stairs instead of elevator. Regular aerobic exercise program discussed. I recommended that the patient start a Mediterranean diet as opposed to the Keto diet. She can limit carbohydrates to no more than 30 g per day, but I do recommend some healthy carbohydrates daily. Assessment & Plan (09/24/2018 7:56 AM CDT): Obesity is unchanged. Discussed the patient's BMI. The BMI is above average; BMI management plan is completed. General weight loss/lifestyle modification strategies discussed (elicit support from others; identify saboteurs; non-food rewards, etc). Behavioral treatment: stress management. Diet interventions: moderate (500 kCal/d) deficit diet. Informal exercise measures discussed, e.g. taking stairs instead of elevator. Regular aerobic exercise program discussed. Assessment & Plan (07/12/2018 10:49 AM CDT): Obesity is unchanged. Discussed the patient's BMI. The BMI is above average; BMI management plan is completed. General weight loss/lifestyle modification strategies discussed (elicit support from others; identify saboteurs; non-food rewards, etc). Behavioral treatment: stress management. Diet interventions: moderate (500 kCal/d) deficit diet. Informal exercise measures discussed, e.g. taking stairs instead of elevator. Regular aerobic exercise program discussed. Right upper quadrant abdominal pain 04/27/2017 11/30/2020 Assessment & Plan (08/02/2020 3:31 PM CDT): Likely secondary to symptomatic gallstone disease or biliary dyskinesia. Patient will likely benefit from cholecystectomy and she will be referred to surgery. Assessment & Plan (09/28/2017 9:04 AM CDT): Improved. This is likely due to sphincter of Oddi dysfunction. She got significantly better following ERCP with sphincterotomy. She was advised to avoid fatty foods. Advised to return to the office or call me if the pain should return. Assessment & Plan (06/23/2017 1:06 PM CDT): Recurrent abdominal pain. Etiology is unclear. Recent Esophagogastroduodenoscopy revealed gastritis and reflux esophagitis. This HIDA scan was suggestive of possible partial obstruction of common bile duct versus spasm. The patient feels better with the pain at this time. I had suggested the patient having an ERCP with sphincterotomy but she refuses stating that her pain is better at this time. She was advised to continue anti-reflux measures and to contact the office if the pain gets worse again. Assessment & Plan (04/27/2017 10:00 AM AUDIO NARRATOR): Mild pain. Associated with tenderness in the right upper quadrant suggestive of gallbladder disease. The ultrasound however did not reveal any evidence of cholelithiasis or cholecystitis. The patient may have acalculous cholecystitis or peptic ulcer disease. Recommendation: Will request for hepatobiliary scan with gallbladder ejection fraction. Esophagogastroduodenoscopy is recommended to evaluate for possible peptic ulcer disease. History of colposcopy 01/15/20132023 Overview (11/22/2019): Note: - FAIZAN! Encounters Date Type Department Care Team Description 07/10/2024 Nurse Triage [facility] [address] [phone] Charlie Mtz MD 07/09/2024 Telephone [facility] [address] [phone] Charlie Mtz MD Medical Question/Miscellaneo us 06/21/2024 Telephone [facility] [address] [phone] Charlie Mtz MD Forms Request 06/05/2024 Telephone [facility] [address] [phone] Charlie Mtz MD 05/31/2024 Telephone [facility] [address] [place] [address] Charlie Mtz MD Medical Records Request 05/31/2024 Telephone [facility] [address] [place] [address] Charlie Mtz MD Test Results 05/11/2024 1:02 PM AUDIO NARRATOR - 05/11/2024 11:59 PM AUDIO NARRATOR Hospital Encounter [facility] [address] [place] [address] Essential (primary) hypertension Discharge Disposition: Discharge to home or self care 05/11/2024 10:00 AM AUDIO NARRATOR Lab [facility] [address] [place] [address] 04/25/2024 Telephone [facility] [address] [facility] [address] [place] [address] Shona Hauser MA from Last 3 Months Immunizations Immunization Administration Dates Next Due Influenza, Quad, Adjuvantate d, Intramuscular 01/16/2020 Influenza, Quadrivalent, Hig h Dose, Preservative Free, Intrr 01/17/2023,01/12/2022,12/10/2021,01/20 Influenza, Quadrivalent, Spl it, Preservative Free, Intramuscular 01/25/2019 Influenza, Trivalent, High D ose, Split, Preservative Free, Intramuscular 01/30/2014 Influenza, Unspecified 12/14/2023(Deferr ed: Patient Refused),12/15/2022(Deferred: Patient Refused),02/18/2021,01/09/2018, 017 Moderna SARS-CoV-2 Monovalen t Vaccination (12+ YRS) 02/18/2021,06/24/2020,05/21/2020 Pneumococcal Conjugate PCV 13 11/14/2018 Pneumococcal Polysaccharide PPV23 11/22/2019 RSV, Bivalent, Protein Subun it Rsvpref, Diluent (Abrysvo) 02/08/2023 Tetanus toxoid, adsorbed 07/11/2018(Deferred: Sam briones) ZOSTER Recombinant 02/08/2023 Surgical History Surgery Date Site/Laterality Comments KNEE ARTHROPLASTY Left cartilage removed. SECTION CATARACT EXTRACTION COLONOSCOPY 06/24/2009 ESOPHAGOGASTRODUODENOSCOPY 07/01/2020 Nonspecific erythematous mucosa in pre pyloric region. Mild reflux esophagitis. Biopsies pending ERCP LAPAROSCOPIC CHOLECYSTECTOMY 08/13/2020 EYE SURGERY 10/10/2023 - 11/09/2023 Right Medical History Medical History Date Comments Hypertension Nausea Anxiety Back pain COPD (chronic obstructive pulmonary disease) (HC C) Hyperlipidemia GERD (gastroesophageal reflux disease) RAS (obstructive sleep apnea) Cp ap at night Smoking Diverticulosis Type 2 diabetes mellitus (HCC) Mild major depression 11/30/2020 Gastric reflux Acute respiratory failure with hypoxia (HCC) 03/13/2023 History of colposcopy 01/15/2013 Note: 10-2 012 - FAIZAN! S/P cholecystectomy 10/16/2020 08/13/2020 Family History Medical History Relation Name Comments Lung cancer Father Cancer Maternal Grandmother Heart disease Maternal Grandmother Hypertension Mother Stroke Mother Diabetes Other 1 Family history of Diabetes mellitus; Hypertension Other 2 Family history of Hypertension; Cancer Paternal Grandfather Diabetes Paternal Grandmother Breast cancer Neg Hx Colon cancer Neg Hx Ovarian cancer Neg Hx Relation Name Status Comments Father Maternal Grandmother Mother Other 1 Other 2 Paternal Grandfather Paternal Grandmother Social History Tobacco Use Types Packs/Day Years Used Date Smoking Tobacco: Former Cigarettes 0.8 28 0 06/25/1993 - 06/25/2021 Smokeless Tobacco: Former Quit: 06/25/2021 Tobacco Cessation:Counseling Given: Not Answered Alcohol Use Standard Drinks/Week Comments No 0 (1 standard drink = 0.6 oz pur e alcohol) [facility] Utilities Answer Date Recorded In the past 12 months has PA Semi, gas, oil, or water [employer] threatened to shut off services in your home? No 03/18/2023 Social Connection and Isolat ion Panel [NHANES] Answer Date Recorded In a typical week, how many times do you talk on the phone with family, friends, or neighbors? More than three times a week 03/18/2023 How often do you get togethe r with friends or relatives? Twice a week 03/18/2023 How often do you attend chur ch or lutheran services? More than 4 times per year 03/18/2023 Do you belong to any clubs o r organizations such as holiness groups, unions, fraternal or athletic groups, or school groups? No 03/18/2023 How often do you attend meet ings of the clubs or organizations you belong to? Never 03/18/2023 Are you , , di vorced, , never , or living with a partner? 03/18/2023 AUDIT-C Answer Date Recorded Q1: How often do you have a drink containing alc ohol? Never 08/06/2022 Average Number of Drinks Not on file 023 Frequency of Binge Drinking Not on file 07/11 Overall Financial Resource Strain (CARDIA) Answe r Date Recorded How hard is it for you to pa y for the very basics like food, housing, medical care, and heating? Not hard at all 03/18/2023 PHQ-2 Answer Date Recorded PHQ-2 Total Score (If total score is 3 or more points, staff should administer the PHQ-9) 0 12/19/2023 Hunger Vital Sign Answer Date Recorded Within the past 12 months, y ou worried that your food would run out before you got the money to buy more. Never true 03/18/20 23 Within the past 12 months, t he food you bought just didn't last and you didn't have money to get more. Never true 03/18/2023 PRAPARE - Transportation Answer Date Re corded In the past 12 months, has l ack of transportation kept you from medical appointments or from getting medications? No 11/2022 In the past 12 months, has l ack of transportation kept you from meetings, work, or from getting things needed for daily living? No 03/18/2023 Housing Stability Vital Sign Answer Mauricio e Recorded In the last 12 months, was t here a time when you were not able to pay the mortgage or rent on time? No 03/18/2023 In the last 12 months, how many places have you lived? 1 03/18/2023 In the last 12 months, was t here a time when you did not have a steady place to sleep or slept in a nursing home (including now)? No 03/18/2023 Personal Safety Answer Date Recorded Have you ever been in or are you currently in a harmful physical or emotional relationship or is someone making you feel afraid or unsafe? Denies 03/13/2023 Education Answer Date Recorded What is the highest level of school you have completed or the highest degree you have received? Some college, no degree 03/15/2023 Comments No Sex and Gender Information Value Date Recorded Sex Assigned at Not on file Legal Sex Female 3:09 PM AUDIO NARRATOR Gender Identity Not on file Sexual Orientation Not on file Occupation Industry Job Start Date Job End Date RETIRED Not on file Not on file Not on file Obstetrics History Para Term AB IAB SAB Ectopic Multiple Livin g Live Births 3 3 3 Date Outcome GA Total Labor Labor/2nd/3rd Weight Sex Type Anes PTL Anne A1 A5 Name Clin Term Term Term Last Filed Vital Signs Vital Sign Reading Time Taken Comments Blood Pressure 124/76 12/19/2023 10:04 AM CDT Pulse 65 12/19/2023 10:04 AM CDT Temperature 36.6 C (97.9 F) 12/19/2023 10:04 AM CDT Respiratory Rate 16 12/19/2023 10:04 AM CDT Oxygen Saturation 95% 12/19/2023 10:04 AM CDT Inhaled Oxygen Concentration - - Weight 92.3 kg (203 lb 6.4 oz) 12/19/2023 10:04 AM CDT Height 154.9 cm (5' 1 ) 12/19/2023 10:04 AM CDT Body Mass Index 38.43 12/19/2023 10:04 AM CDT Plan of Treatment Health Maintenance Due Date Last Done Comments Zoster Vaccine (2 of 2) 04/05/2023 02/08/2023 Covid-19 Vaccine (2023- 5 season) 2023 02/18/2021, 06/24/2020, 05/21/2020 Lung Cancer Screening 07/13/2024 07/13/2023, 023 Influenza Vaccine (Season Ended) 2024 01/17/2023, 01/12/2022, 12/10/2021, Additional history exists Depression Screening 12/18/2024 12/19/2023, 12/15/2022, 12/02/2022, Additional history exists Fall Risk Assessment 12/18/2024 12/19/2023, 03/16/2023, 12/15/2022, Additional history exists Well Visit 65+ 12/18/2024 12/19/2023, 09/2022, 12/10/2021, Additional history exists Breast Cancer Screening-Mammogram 01/15/2025 01/16/2024, 11/20/2022, 08/04/2021, Additional history exists Osteoporosis Screening-Bone Density Scan 01/15/2026 01/16/2024, 08/04/2021, 04/26/2019, Additional history exists Colon Cancer Screening-Colonoscopy 05/22/2029 05/22/2019, 06/14/2009 Hepatitis C Screening Completed 05/18/2019 Colon Cancer Screening-CT Colonography Discontinued 05/22/2019, 06/14/2009 Colon Cancer Screening-DNA Stool Discontinued 05/22/2019, 05/04/2019, 06/14/2009 Colon Cancer Screening-FIT Discontinued 05/22, 05/04/2019, 06/14/2009 Colon Cancer Screening-Sigmoidoscopy Discontinued 05/22/2019, 06/14/2009 Pneumococcal vaccine 65+ Completed 11/22/2019, 09/2018 Hepatitis B Screening Completed 12/14/2023 DTaP/Tdap/Td Vaccine Discontinued Goals Goal Patient Goal Type Associated Problems Recent Progress Patient-Stated? Author BH-Pain Behavioral Health Improving( 1:51 PM CDT) Lorrie Layton, RN Note: Patient will establish a comfort-function goal and identify the pain level that will allow the patient to perform desired activities and achieve an acceptable quality of life. Procedures Procedure Name Priority Date/Time Associated Diagnosis Comments ECG 12-LEAD Routine 05/11/2024 1:16 PM AUDIO NARRATOR Essential (primary) hypertension EGFR Routine 05/11/2024 10:07 AM AUDIO NARRATOR URINALYSIS, MICROSCOPIC ONLY Routine 05/11/2024 10:07 AM AUDIO NARRATOR DIFFERENTIAL AUTO Routine 05/11/2024 10: 07 AM AUDIO NARRATOR BASIC METABOLIC PANEL Routine 05/11/2024 10:07 AM AUDIO NARRATOR HEMOGLOBIN A1C Routine 05/11/2024 10:07 AM AUDIO NARRATOR CBC WITH AUTO DIFFERENTIAL Routine 05/11/2024 10:07 AM AUDIO NARRATOR URINALYSIS AND REFLEX TO MICROSCOPIC AND CULTURE Routine 05/11/2024 10:07 AM AUDIO NARRATOR SCREENING MAMMOGRAM BILATERAL W ANDREW Schedule Routine, Read Routine (OP Routine) 01/16/2024 2:28 PM CDT Screening mammogram, encounter for DEXA AXIAL SKELETON BONE DENSITY 1 OR MORE SITES Schedule Routine, Read Routine (OP Routine) 01/16/2024 2:16 PM CDT Post-menopausal CT LUNG CANCER SCREENING Schedule Routine, Read Routine (OP Routine) 07/13/2023 5:26 PM CDT Personal history of nicotine dependence COLONOSCOPY 05/22/2019 10:39 AM AUDIO NARRATOR HEPATITIS C ANTIBODY Routine 05/18/2019 10:48 AM AUDIO NARRATOR Encounter for hepatitis C screening test for low risk patient from Last 3 Months or Most Recently Relevant to Health Maintenance Results * ECG 12 lead (05/11/2024 1:16 PM AUDIO NARRATOR) 05/11/2024 1:18 PM AUDIO NARRATOR Narrative [facility] - 05/11/2024 2:51 PM AUDIO NARRATOR Vent Rate: 60 bpm RR Interval: 988 msec NH Interval: 153 msec QRS Duration: 94 msec QT Interval: 424 msec QTC Interval: 425 msec P-R-T [place]: 33 - 75 - 47 degrees IMPRESSION: SINUS RHYTHM Probably normal. No prior EKG for comparison Electronically Signed By: Dr Jeff Austin Jarred Koch MD ECG ORDERABLES Final Result [facility] * eGFR (05/11/2024 10:07 AM AUDIO NARRATOR) eGFR >90 >=60 mL/min/1. 73 m2 Comment: Interpretive Data Reference Interval Normal >/= 90 mL/min/1.73m2 Mildly decreased* 60 - 89 mL/min/1.73m2 Mildly to moderately decreased 45 - 59 mL/min/1.73m2 Moderately to severely decreased 30 - 44 mL/min/1.73m2 Severely decreased 15 - 29 mL/min/1.73m2 Kidney Failure < 15 mL/min/1.73m2 *Relative to young adult level Estimated glomerular filtration rate is determined by the 2020 CKD-EPI equation recommended by the National Kidney Foundation (A Unifying Approach to GFR Estimation: Recommendations of the NKF-ASK Task Force on Reassessing the Inclusion of Race in Diagnosing Kidney Disease, JASN 2020). The CKD-EPI equation should not be used for patients with unstable renal function and has not been validated in children and those over 70. Current interpretive data was last reviewed 2021. Testing performed by: [facility], [address] [place] [address], [id number] Blood 05/11/2024 10:0 7 AM AUDIO NARRATOR 05/11/2024 12:39 PM AUDIO NARRATOR Jarred Koch MD LAB BLOOD ORDERABLES Final R esult SUJATA FARIAS (TEA) 1 Formerly [facility] [place] [address] * Differential, auto (05/11/2024 10:07 AM AUDIO NARRATOR) Neutrophil abs 5.3 1.5 - 6.5 K/cumm Comment:Testing performed by : [facility], [address] [place] [address]., [id number] Imm gran abs 0.0 0.0 - 0.1 K/cumm SUJATA FARIAS (CR) Comment:Testing performed by : [facility], [address] [place] [address], [id number] Lymphocyte abs 2.0 0.8 - 3.3 K/cumm SUJATA FARIAS (CR) Comment:Testing performed by : [facility], [address] [place] [address]., [id number] Monocyte abs 0.6 0.2 - 0.8 K/cumm [facility] (CR) Comment:Testing performed by : [facility], [address] [place] [address]., [id number] Eosinophil abs 0.2 0.0 - 0.5 K/cumm [facility] (CR) Comment:Testing performed by : [facility], [address] [place] [address]., [id number] Basophil abs 0.1 0.0 - 0.1 K/cumm [facility] (CR) Comment:Testing performed by : [facility], [address] [place] [address]., [id number] Neutrophil pct 64.4 % [facility] (CR) Comment: Interpretive Data Percent cell count reference ranges are not reported, since discordance with absolute values may lead to misinterpretation of CBC data. Current Interpretive Data was last revised on 2017. Testing performed by: [address] [address] Imm gran pct 0.2 % [facility] (CR) Comment: Interpretive Data Percent cell count reference ranges are not reported, since discordance with absolute values may lead to misinterpretation of CBC data. Current Interpretive Data was last revised on 2017. Testing performed by: [facility], [address] [place] [address]., [address] Lymphocyte pct 24.5 % [facility] (CR) Comment: Interpretive Data Percent cell count reference ranges are not reported, since discordance with absolute values may lead to misinterpretation of CBC data. Current Interpretive Data was last revised on 2017. Testing performed by: [address] [address] Monocyte pct 7.8 % [facility] (CR) Comment: Interpretive Data Percent cell count reference ranges are not reported, since discordance with absolute values may lead to misinterpretation of CBC data. Current Interpretive Data was last revised on 2017. Testing performed by: [address] [address] Eosinophil pct 2.5 % [facility] (CR) Comment: Interpretive Data Percent cell count reference ranges are not reported, since discordance with absolute values may lead to misinterpretation of CBC data. Current Interpretive Data was last revised on 2017. Testing performed by: [address] [address] Basophil pct 0.6 % SUJATA FARIAS (CR) Comment: Interpretive Data Percent cell count reference ranges are not reported, since discordance with absolute values may lead to misinterpretation of CBC data. Current Interpretive Data was last revised on 2017. Testing performed by: [address] [address] Blood 05/11/2024 10:0 7 AM AUDIO NARRATOR 05/11/2024 10:07 AM AUDIO NARRATOR Jarred Koch MD LAB BLOOD ORDERABLES Final R esult SUJATA FARIAS (TEA) 1 Formerly [facility] [place] [address] * (ABNORMAL) Urinalysis reflex to microscopic and culture Urine, clean voided (05/11/2024 10:07 AM AUDIO NARRATOR) Color, ur Yellow Yellow Comment:Testing performed by : [address] [address] Clarity, ur Clear Clear SUJATA Hopkins (TEA) Comment:Testing performed by : [address] [address] Specific gravity, ur 1.026 1.003 - 1.030 SUJATA FARIAS (CR) Comment:Testing performed by : [address] [address] pH, urine 5.5 SUJATA FARIAS (CR) Comment: Interpretive Data U rine pH is affected by diet, medications, systemic acid-base disturbances, and renal tubular function. pH may affect urinary stone formation. For example, urine pH below 6.0 may help reduce the tendency for calcium phosphate stones and pH greater than 6.0 may reduce the tendency for uric acid stone formation. Source: [facility] [employer] Current Interpretive Data was last revised on 2017 Testing performed by: [address] [place] [address] Protein, ur ql Negative Negative [facility] (CR) Comment:Testing performed by : [facility], [address] [place] [address], [address] Glucose, ur ql Negative Negative [facility] (CR) Comment:Testing performed by : [address], [address] Ketones, ur Negative Negative [facility] (CR) Comment:Testing performed by : [address], [address] Bilirubin, ur Negative Negative [facility] (CR) Comment:Testing performed by : [address], [address] Blood, ur Trace(A) Negative [facility] (CR) Comment:Testing performed by : [address], [address] Urobilinogen, ur <2.0 <2.0 mg/dL [facility] (CR) Comment:Testing performed by : [address], [address] Nitrite, ur Negative Negative CERNER A (CR) Comment:Testing performed by : [address], [address] Leukocyte esterase, ur 3+(A) Negative [facility] (CR) Comment:Testing performed by : [address], [address] UA reflex comment Reflex to microscopic UA will be performed. [facility] (CR) Comment:Testing performed by : [address], [address] Urine, clean voided 05/11/2024 10:07 AM AUDIO NARRATOR 05/11/2024 10:08 AM AUDIO NARRATOR Jarred Koch MD LAB MICROBIOLOGY - GENERAL O RDERABLES Final Result SUJATA FARIAS (CR) 1 Formerly [facility] [place] [address] * (ABNORMAL) CBC with auto differential (05/11/2024 10:07 AM AUDIO NARRATOR) [facility] WBC 8.2 3.8 - 9.9 K/cumm Comment:Testing performed by : [facility], [address] [place] [address], [address] Hgb 15.1 11.9 - 15.5 g/dL [facility] (CR) Comment:Testing performed by : [address], [address] Hct 47.9(H) 35.6 - 45.5 % [facility] (CR) Comment:Testing performed by : [facility], [address] [place] [address], [address] Plt 227 150 - 400 K/cumm [facility] (CR) Comment:Testing performed by : [address], [address] MPV 10.0 9.1 - 12.3 fL [facility] (CR) Comment:Testing performed by : [address], [address] RBC 5.55(H) 3.90 - 5.20 M/cumm [facility] (CR) Comment:Testing performed by : [address], [address] MCV 86.3 81.3 - 96.4 fL [facility] (CR) Comment:Testing performed by : [address], [address] MCH 27.2 27.1 - 33.3 pg [facility] (CR) Comment:Testing performed by : [address], [address] MCHC 31.5(L) 32.3 - 35.7 g/dL [facility] (CR) Comment:Testing performed by : [address], [address] RDW CV 15.6(H) 11.1 - 14.9 % [facility] (CR) Comment:Testing performed by : [address], [address] RDW SD 49.2(H) 35.7 - 48.1 fL [facility] (CR) Comment:Testing performed by : [address], [address] NRBC abs 0.00 0.00 - 0.01 K/cumm SUJATA FARIAS (CR) Comment:Testing performed by : [address], [address] Blood 05/11/2024 10:0 7 AM AUDIO NARRATOR 05/11/2024 10:07 AM AUDIO NARRATOR Jarred Koch MD LAB BLOOD ORDERABLES Final R esult Performing Organization Address [facility] Co de Phone Number SUJATA FARIAS (CR) 1 Formerly [facility] [place] [address] * (ABNORMAL) Urinalysis, microscopic only (05/11/2024 10:07 AM AUDIO NARRATOR) WBC, ur 0-5 0 - 5 Comment:Testing performed by : [address], [address] RBC, ur 0-2 0 - 2 /HPF SUJATA FARIAS (CR) Comment:Testing performed by : [address], [address] Epithelial cells, squamous, ur 11-20(A) 0 - 5 /HPF SUJATA [facility] (CR) Comment:Testing performed by : [address], [address] Mucous, ur Present(A) SUJATA Hopkins (CR) Comment:Testing performed by : [address], [address] Culture Reflex Comment Reflex conditions for urine culture (WBC >10) not met. SUJATA [facility] (CR) Comment:Testing performed by : [address], [address] Urine, clean voided 05/11/2024 10:07 AM AUDIO NARRATOR 05/11/2024 12:24 PM AUDIO NARRATOR Jarred Koch MD LAB URINE ORDERABLES Final R esult Performing Organization Address [facility] Co de Phone Number SUJATA FARIAS (TEA) 1 [facility]ly [facility] [employer] [address] * (ABNORMAL) Hemoglobin A1c (05/11/2024 10:07 AM AUDIO NARRATOR) Pathologist [facility] Hgb A1C 6.3(H) 4.0 - 5.6 % Comment:Testing performed by : [address] [address] Estimated Average Glucose 134 mg/dL SUJATA FARIAS (CR) Comment: The ADA recommends reporting an estimated Average Glucose (eAG) with all Hemoglobin A1c results using the equation derived from a study of 507 normal and diabetic adults. Minority populations were underrepresented and children were not included. (Diabetes Care 31:0834-5483, 2008). The eAG is not equivalent to a fasting glucose. Testing performed by: [address] [address] Blood 05/11/2024 10:0 7 AM AUDIO NARRATOR 05/11/2024 10:07 AM AUDIO NARRATOR Jarred Koch MD LAB BLOOD ORDERABLES Final R esult SUJATA FARIAS (CR) 1 [facility]ly [facility] [place] [address] * (ABNORMAL) Basic metabolic panel (05/11/2024 10:07 AM AUDIO NARRATOR) [facility] Sodium 142 135 - 145 mmol/L Comment:Testing performed by : [address] [address] Potassium, pl 3.7 3.3 - 4.9 mmol/L SUJATA FARIAS (CR) Comment:Testing performed by : [facility], [address] [place] [address]., [address] Chloride 101 97 - 110 mmol/L SUJATA FARIAS (CR) Comment:Testing performed by : [address] [address] CO2 27 22 - 32 mmol/L SUJATA FARIAS (CR) Comment:Testing performed by : [address] [address] Anion gap 14 2 - 15 mmol/L SUJATA FARIAS (CR) Comment:Testing performed by : [address] [place]., [address] BUN 14 6 - 25 mg/dL [facility] (CR) Comment:Testing performed by : [address] [address] Creatinine 0.51(L) 0.60 - 1.10 mg/dL [facility] (CR) Comment:Testing performed by : [address] [address] Glucose 130 70 - 199 mg/dL [facility] (CR) Comment: Interpretive Data Fasting glucose >/= 126 mg/dl is diagnostic for diabetes. Fasting is defined as no caloric intake for at least 8 hours. Fasting glucose between 100 mg/dl to 125 mg/dl is diagnostic of prediabetes. In a patient with classic symptoms of hyperglycemia or hyperglycemic crisis, a random glucose >/= 200 mg/dl is diagnostic for diabetes. In the absence of unequivocal hyperglycemia, results should be confirmed by repeat testing. The classification and Diagnosis of Diabetes Diabetes Care 2021; 46: S19-S40. Current interpretive data was last revised 2022. Testing performed by: [facility], [address] [place] [address]., [address] Calcium 9.2 8.5 - 10.3 mg/dL SUJATA [facility] (CR) Comment:Testing performed by : [address] [address] Blood 05/11/2024 10:0 7 AM AUDIO NARRATOR 05/11/2024 10:07 AM AUDIO NARRATOR Jarred Koch MD LAB BLOOD ORDERABLES Final R esult KARYNJOHAN FARIAS (TEA) 1 Formerly [facility] Department of Laboratories [place], [place] [id number] * Screening Mammogram Bilateral W Andrew (01/16/2024 2:28 PM CDT) Anatomical Region Laterality Modality Breast Bilateral Mammography 01/16/2024 4:48 PM CDT Impressions 01/16/2024 4:48 PM CDT No evidence of malignancy in either breast. FINAL ASSESSMENT: BI-RADS Category 2: Benign. RECOMMENDATION: Recommend return for annual screening mammogram in 12 months. Electronically signed by: Anay Story M.D. Narrative 01/16/2024 4:48 PM CDT EXAMINATION: BILATERAL SCREENING MAMMOGRAM COMPARISON: All prior mammograms dating back to 2019. TECHNIQUE: Full-field 2D and digital breast tomosynthesis (DBT) images were obtained. CAD was utilized. BREAST PARENCHYMAL COMPOSITION: There are scattered areas of fibroglandular density. FINDINGS: No suspicious masses or suspicious calcifications are seen. There is no suspicious architectural distortion or skin thickening. Axillary lymph nodes are prominent bilaterally, but this is unchanged from 2020. 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 FINDINGS: AP LUMBAR SPINE L1-L4: Total BMD is 1.095 g/cm2 T-score is 0.4 LEFT HIP: Total BMD is 0.993 g/cm2 T-score is 0.4 Femoral neck BMD is 0.708 g/cm2 T-score is -1.3 FRAX: 10 year risk for a major osteoporotic fracture is 11 %, 10 year risk for a hip fracture is 1.5 % IMPRESSION: Low Bone Mass. REFERENCE: Bone mineral density: T-Score: Normal (T-score above or = -1.0) Low bone mass (T-score between -1.0 and -2.5) replaces the previously used term osteopenia Osteoporosis (T-score = or below -2.5) Z-Score: Within the expected range for age (Z-score above -2.0) Below the expected range for age (Z-score is -2.0 or below) Please see below follow up recommendations. Medical evaluation for secondary causes of low bone mineral density may be appropriate. FRAX is a World Health Organization validated fracture risk assessment tool that calculates a person's 10 year probability of a major osteoporosis related fracture and hip fracture. According to the National Osteoporosis Foundation guidelines, postmenopausal women and men age 50 or older with low bone mass and a 10 year probability of a major osteoporosis related fracture = or greater than 20% or a 10 year probability of a hip fracture = or greater than 3% should be considered for pharmacological treatment for the prevention of osteoporosis. For further information, including treatment recommendations, please refer to the 2019 ISCD Official Positions (http://www.iscd.org) and the NOF's Clinician's Guide to Prevention and Treatment of Osteoporosis (http://www.nof.org/professionals/clinical-guidelines) THIS IS AN ELECTRONICALLY VERIFIED FINAL REPORT 01/16/2024 6:41 PM - Electronically signed by Filemon Albert M.D. 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 FINDINGS: AP LUMBAR SPINE L1-L4: Total BMD is 1.095 g/cm2 T-score is 0.4 LEFT HIP: Total BMD is 0.993 g/cm2 T-score is 0.4 Femoral neck BMD is 0.708 g/cm2 T-score is -1.3 FRAX: 10 year risk for a major osteoporotic fracture is 11 %, 10 year risk for ahip fracture is 1.5 % IMPRESSION: Low Bone Mass. REFERENCE: Bone mineral density: T-Score: Normal (T-score above or = -1.0) Low bone mass (T-score between -1.0 and -2.5) replaces thepreviously used term osteopenia Osteoporosis (T-score = or below -2.5) Z-Score: Within the expected range for age (Z-score above -2.0) Below the expected range for age (Z-score is -2.0 or below) Please see below follow up recommendations. Medical evaluation forsecondary causes of low bone mineral density may be appropriate. FRAX is a World Health Organization validated fracture risk assessmenttool that calculates a person's 10 year probability of a major osteoporosisrelated fracture and hip fracture. According to the National OsteoporosisFoundation guidelines, postmenopausal women and men age 50 or older with low bonemass and a 10 year probability of a major osteoporosis related fracture = or greater than 20% or a 10 year probability of a hip fracture = or greaterthan 3% should be considered for pharmacological treatment for the preventionof osteoporosis. For further information, including treatment recommendations, please referto the 2019 ISCD Official Positions (http://www.iscd.org) and the NOF's Clinician's Guide to Prevention and Treatment of Osteoporosis (http://www.nof.org/professionals/clinical-guidelines) THIS IS AN ELECTRONICALLY VERIFIED FINAL REPORT 01/16/2024 6:41 PM - Electronically signed by Filemon Albert M.D. MF: [email or web address] Report ID: [id number] Reading Location: [id number] Charlie Mtz MD [facility] DXA PROCEDURES Final Result * CT Lung Cancer Screening (07/13/2023 5:26 PM CDT) Anatomical Region Laterality Modality Chest N/A Computed Tomogra phy 07/14/2023 8:32 AM CDT Narrative 07/14/2023 8:45 AM CDT EXAM DESCRIPTION: CT LUNG CANCER SCREENING REASON FOR STUDY: Screening CT of the chest in a former smoker with a 21 pack year smoking history. Additional history: Stopped smoking age 65. TECHNIQUE: Low dose CT scan of the chest was performed without intravenous contrast using helical scanning technique. The exam extends from the lung apices through the lung bases. Automatic exposure control was used as a dose optimization technique. NOTE: This study was performed for the specific purposes of lung cancer screening and is not an alternative to diagnostic chest CT. RADIATION DOSE: CT dose index volume (CTDIvol) = 2.25 mGy COMPARISON: CT chest 06/22/2022 FINDINGS: SMOKING RELATED LUNG DISEASE: Mild apical predominant emphysema. LUNG NODULES: Unchanged 5 mm nodule in the right upper lobe on image 67. Unchanged 5 mm nodule in the left lower lobe on image 217. Unchanged 3 mm nodule in the right lower lobe laterally on image 208. New tree-in-bud nodular opacities in the right lower lobe laterally and in the right upper lobe posteriorly. CORONARY ARTERY CALCIFICATION: Positive OTHER: No pleural effusion or pneumothorax. The central airways are patent. There is unchanged scarring in the right middle lobe and lingula. There is also subsegmental atelectasis and scarring in the right lower lobe. The heart size is normal. There is no pericardial effusion or thickening. There are aortic valvular calcifications. Normal caliber thoracic aorta contains a moderate amount of calcified atherosclerotic plaque. There is an enlarged precarinal lymph node measuring 1.2 cm, unchanged. No enlarged axillary lymph nodes. The visualized portions of the upper abdomen are unremarkable. There is no suspicious osseous lesion. There are degenerative changes throughout the thoracic spine. IMPRESSION: 1. New tree-in-bud nodular opacities in the right lower lobe and right upper lobe consistent with an atypical infectious or inflammatory process. 2. Stable bilateral pulmonary nodules measuring up to 5 mm. 3. Mild emphysema. 4. Coronary artery disease. Aortic valvular calcifications are again noted. 5. Other findings as above. Lung-RADS category 2S: Benign appearance or behavior. Finding other than a pulmonary nodule which is potentially clinically significant. Recommendation: Low dose Screening CT of chest in 12 months. THIS IS AN ELECTRONICALLY VERIFIED FINAL REPORT 07/14/2023 8:45 AM - Electronically signed by Lux Sin M.D. AM: AM Report ID: [id number] Reading Location: [id number] Procedure Note Lux Sin MD - 07/14/2023 EXAM DESCRIPTION: CT LUNG CANCER SCREENING REASON FOR STUDY: Screening CT of the chest in a former smoker with a21 pack year smoking history. Additional history: Stopped smoking age 65. TECHNIQUE: Low dose CT scan of the chest was performed without intravenous contrast using helical scanning technique. The exam extends from the lung apices through the lung bases. Automatic exposure control was used as adose optimization technique. NOTE: This study was performed for the specific purposes of lung cancer screening and is not an alternative to diagnostic chest CT. RADIATION DOSE: CT dose index volume (CTDIvol) = 2.25 mGy COMPARISON: CT chest 06/22/2022 FINDINGS: SMOKING RELATED LUNG DISEASE: Mild apical predominant emphysema. LUNG NODULES: Unchanged 5 mm nodule in the right upper lobe on image 67. Unchanged 5 mm nodule in the left lower lobe on image 217. Unchanged 3 mm nodule in the right lower lobe laterally on image 208. New tree-in-bud nodular opacities in the right lower lobe laterally and inthe right upper lobe posteriorly. CORONARY ARTERY CALCIFICATION: Positive OTHER: No pleural effusion or pneumothorax. The central airways arepatent. There is unchanged scarring in the right middle lobe and lingula. Thereis also subsegmental atelectasis and scarring in the right lower lobe. The heart size is normal. There is no pericardial effusion or thickening.There are aortic valvular calcifications. Normal caliber thoracic aortacontains a moderate amount of calcified atherosclerotic plaque. There is an enlarged precarinal lymph node measuring 1.2 cm, unchanged. No enlarged axillarylymph nodes. The visualized portions of the upper abdomen are unremarkable.There is no suspicious osseous lesion. There are degenerative changesthroughout the thoracic spine. IMPRESSION: 1. New tree-in-bud nodular opacities in the right lower lobe and rightupper lobe consistent with an atypical infectious or inflammatory process. 2. Stable bilateral pulmonary nodules measuring up to 5 mm. 3. Mild emphysema. 4. Coronary artery disease. Aortic valvular calcifications are againnoted. 5. Other findings as above. Lung-RADS category 2S: Benign appearance or behavior. Finding other thana pulmonary nodule which is potentially clinically significant. Recommendation: Low dose Screening CT of chest in 12 months. THIS IS AN ELECTRONICALLY VERIFIED FINAL REPORT 07/14/2023 8:45 AM - Electronically signed by Lux Sin M.D. AM: AM Report ID: [id number] Reading Location: [place] [address] us Charlie Mtz MD IMG CT PROCEDURES Final R esult * COLONOSCOPY (05/22/2019 10:39 AM AUDIO NARRATOR) Anatomical Region Laterality Modality Other Narrative Procedure Note Marlon Cronin MD - 05/22/2019 10:39 AM CST [facility] Patient Name: Brittanie Gambino Procedure Date: 05/22/2019 10:39 AM Date of : 1955 Admit Type: Outpatient Age: 63 Gender: Female Attending MD: Marlon Cronin M.D. Room: [facility] ENDOSCOPY ROOM 2 Note Status: Finalized Patient Profile: Refer to note in patient chart for documentation of history and physical. Procedure: Colonoscopy Indications: Screening for colorectal malignant neoplasm, Last colonoscopy: June 2009 Referring MD: Clyde Borges Providers: Marlon Cronin M.D. Impression: - Hemorrhoids found on perianal exam. - The entire examined colon is normal. - No specimens collected. Recommendation: - Discharge patient to home. - Resume previous diet. - Continue present medications. - Repeat colonoscopy in 10 years for screeningpurposes. - Return to primary care physician as previously scheduled. Medicines: Propofol per Anesthesia Complications: No immediate complications. Estimated Blood Loss: Estimated blood loss: none. Procedure: Pre-Anesthesia Assessment: - This assessment was completed [Time of Assessment] prior to the administration of sedation. The benefits, risks and alternatives of theprocedure and sedation were discussed and informed consent was obtained. All questions were answered. Please referto the signed informed consent document in the medical record. The scope was passed under direct vision.The Colonoscope [id number] was introducedthrough the anus and advanced to the the cecum, identifiedby appendiceal orifice and ileocecal valve. Bowel prepwas administered using a single dose. The bowelpreparation used was Miralax. The bowel preparation used was bisacodyl tablets. The colonoscopy was performed without difficulty. The patient tolerated theprocedure well. The quality of the bowel preparation wasgood. Findings: Hemorrhoids were found on perianal exam. The colon (entire examined portion) appeared normal. Electronically signed by Marlon Cronin M.D. Marlon Cronin M.D. 05/22/2019 11:42:42 AM Number of Addenda: 0 Note Initiated On: 05/22/2019 10:39 AM Procedure Code(s): --- Professional --- G0121, Colorectal cancer screening; colonoscopy on individual not meeting criteria for high risk Diagnosis Code(s): --- Professional --- K64.9, Unspecified hemorrhoids Z12.11, Encounter for screening for malignant neoplasm of colon CPT copyright 2017 [place] [employer]. All rights reserved. The codes documented in this report are preliminary and upon salt operator reviewmay be revised to meet current compliance requirements. Recognized by the [place] [employer] for promoting quality in endoscopy us Marlon Cronin MD ENDOSCOPY PROCEDURES Final Re sult * Hepatitis C antibody (05/18/2019 10:48 AM AUDIO NARRATOR) Hep C Ab Negative Negative SUJATA FARIAS (CR) Comment:Testing performed by : [facility], [address] [place] [address], [place]., [address] Blood specimen (specimen) 05/18/2019 10:48 AM AUDIO NARRATOR 05/18/2019 1:38 PM AUDIO NARRATOR us Sydney Tompkins NP LAB MICROBIOLOGY - GENERAL O RDERABLES Final Result SUJATA FARIAS (CR) 1 [facility] Department [place] [address] from Last 3 Months or Most Recently Relevant to Health Maintenance Insurance MEDICARE [facility] [address] MEDICARE [facility] [address] MEDICARE [facility] [address] [facility] [address] Advance Directives For more information, please contact: [phone] * Full Code (Latest Code Status on File) Date Activated Date Inactivated Comments 03/13/2023 4:52 AM 03/16/2023 6:28 PM * Full Code Date Activated Date Inactivated Comments 07/01/2020 12:51 PM 07/01/2020 6:46 PM * Full Code Date Activated Date Inactivated Comments 05/22/2019 10:14 AM 05/22/2019 4:30 PM * Full Code Date Activated Date Inactivated Comments 05/22/2019 10:14 AM 05/22/2019 10:14 AM [employer] Lawyer Relationship Specialty Start Date End Date [place] [address] PCP - General Family Medicine 05/28/21 Sintia Santoyo NP Nurse Practitioner Obstetrics and Gynecology 07/13/18 Davey Myles NP Nurse Practitioner Family Practice 10/16/20
--- OUTSIDE RECORDS SUMMARY | 2024-07-10 10:50 | XMS_ITS | Clinical Summary ---
Author Organization [facility] Address [address] [place] [address] Phone Care Team Providers Care Joint Filler Name Role Phone Unavailable Unavailable Unavailable Reason for Visit and Chief Complaint gynecologic procedure : endometrial biopsy - The Chief Complaint is: EMB Problems Includes: Problems addressed during this encounter and other active Problems All Visits Onset Date Resolved Date Provider Condition S tatus Chronic Obstructive Pulmonary Disease 11/17/2018 ROWAN INGRAM NP-BC Active Last Documented On 9 2:25PM ; [facility] Previous Colposcopy 01/15/2013 ROWAN INGRAM ROLLER PRINT TENDER-BC Active Last Documented On 3 12:53PM ; [facility] Note: - FAIZAN! HYPERLIPIDEMIA NEC/NOS 01/20/2012 CE BIRCH MD Active Last Documented On 2 3:01PM ; [facility] HYPERTENSION NOS 12/09/2011 CE BIRCH MD Ac tive Last Documented On 2 10:05AM ; [facility] Plan of Treatment - Clinical summary provided to patient - Last Documented On 02/23/2019 10:55AM ; [facility] Call if any episodes of post menopausal bleeding - assuming bx results from today are WNL. Advised f/u with pcp if right lower quadrant pain recurs - denies today. - Last Documented On 02/23/2019 10:55AM ; [facility] Education and Decision Aids were provided during visit for: INFORMED CONSENT DISCUSSION: Endometrial biopsy was discussed in detail including discomfort, insufficient specimen with need to repeat test, and rare incidence of uterine perforation. Patient expressed understanding of the above and consented to the procedure Last Documented On 9 10:32AM ; [facility] Assessments Includes: Assessments from this encounter No Assessments Recorded Instructions Includes: Instructions from this encounter Education and Decision Aids were provided during visit for: INFORMED CONSENT DISCUSSION: Endometrial biopsy was discussed in detail including discomfort, insufficient specimen with need to repeat test, and rare incidence of uterine perforation. Patient expressed understanding of the above and consented to the procedure Last Documented On 9 10:32AM ; [facility] Medical Equipment - Implanted Devices Includes: Current Devices No Medical Equipment Recorded Medications Includes: Medications discussed during this encounter and other current Medications Current Medications (continue as prescribed) Co Q10 100MG Oral Capsule 11/17/2018 Provider: Diagnosis: Last Documented On 9 2:24PM By DESHAWN DOYLE ; [facility] Tribenzor 40-10-25MG Oral Tablet 11/17/2018 Provider : Diagnosis: Last Documented On 9 2:24PM By DESHAWN DOYLE ; [facility] Omeprazole 20MG Oral Tablet Delayed Release 2017 Provider: Diagnosis: Last Documented On 8 12:41PM By DONALDO DOYLE ; [facility] Bystolic 20MG Oral Tablet 11/16/2017 Provider: Diagnosis: Last Documented On 8 12:41PM By DONALDO DOYLE ; [facility] Fetzima 80MG Oral Capsule Extended Release 24 Hour 11/2017 Provider: Diagnosis: Last Documented On 8 12:42PM By DONALDO DOYLE ; [facility] Biotin 5000MCG Oral Capsule 11/16/2017 Provider: Diagnosis: Last Documented On 8 12:42PM By DONALDO DOYLE ; [facility] Fish Oil 1000MG Oral Capsule 11/16/2017 Provider : Diagnosis: Last Documented On 8 12:42PM By DONALDO DOYLE ; [facility] Iwblznjich-Sjgywccnnu-ATOT 40-10-25MG Oral Tablet 11/2017 Provider: Diagnosis: Last Documented On 8 12:43PM By DONALDO DOYLE ; [facility] Welchol 625 MG OR TABS 01/15/2013 Provider: Diagnosis: Last Documented On 01/15/2013 1:05PM By DONALDO DOYLE ; [facility] Bystolic 5 MG OR TABS 12/09/2011 Provider: Diagnosis: Last Documented On 12/09/2011 10:03AM By AV CORCORAN ; [facility] Spiriva HandiHaler 18 MCG IN CAPS 12/09/2011 Provide r: Diagnosis: Last Documented On 12/09/2011 10:04AM By AV CORCORAN ; [facility] Past Medications on file Keflex 500 MG OR CAPS 01/30/2008 - 02/06/2008 Provider : Diagnosis: Last Documented On 06/09/2009 12:22PM By VIRIDIANA PINTO ; [facility] Medications Administered Includes: Administered Medications from this encounter No Administered Medications Recorded Vital Signs Includes: Vital Signs from this encounter Vital Name 02/23/2019 10:40A 02/23/2019 10: 33A Blood Pressure Sitting L 130/70 BP Cuff Size Large Height (in) 62 Weight (lb) 190 Body Mass Index (kg/m2) 34.8 Body Surface Area (m2) 1.9 Last Documented: On 02/23/2019 10:40A M ; [facility] On 02/23/2019 10:38AM ; [facility] Results Includes: Results discussed during this encounter No Results Recorded For Specified Dates History of Present Illness Includes: History of Present Illness from this encounter No History of Present Illness Recorded Social History Description Last Updated Alcohol use 02/23/2019 Last Documented On 9 10:55AM ; [facility] Cigarette smoking 02/23/2019 Last Documented On 9 10:55AM ; [facility] In monogamous relationship 02/23/2019 Last Documented On 9 10:55AM ; [facility] Not using drugs 02/23/2019 Last Documented On 9 10:55AM ; [facility] Congregation affiliation RASTAFARI 9 Last Documented On 9 10:55AM ; [facility] Sexually active with 1 partners in the l ast year 02/23/2019 Last Documented On 9 10:55AM ; [facility] Smoking status : Current everyday smoker 02/23/2019 Last Documented On 9 10:55AM ; [facility] Social history unchanged 02/23/2019 Last Documented On 9 10:55AM ; [facility] Procedures and Surgical History Includes: Procedures from this encounter Procedures Code Diagnosis Performing Provider Service Location Service Date endometrial biopsy was performed ~Procedure Note: Done without complications.~Amt of Tissue: Scant with 2 passes~Uterine Sound Measurement: Approximately 6 cm after single tooth tenaculum applied to anterior cervix. Excellent hemostasis with silver nitrate x 2 [id number] Last Documented On 9 10:55AM ; [facility] a [place] the [place] [id number] Last Documented On 9 10:32AM ; [facility] no uterine enlargement Last Documented On 9 10:32AM ; [facility] no mass lesion of the uterus Last Documented On 9 10:32AM ; [facility] [place] [id number] Last Documented On 9 10:32AM ; [facility] no enlargement of the right ovary Last Documented On 9 10:32AM ; [facility] no enlargement of the left ovary Last Documented On 9 10:32AM ; [facility] no mass on the right ovary Last Documented On 9 10:32AM ; [facility] no mass on the left ovary Last Documented On 9 10:32AM ; [facility] endometrium thickness 7.0 mm Last Documented On 9 10:32AM ; [facility] the cul-de-sac had no fluid present Last Documented On 9 10:32AM ; [facility] Surgical History Last Updated Dilation + Curettage 02/23/2019 Last Documented On 9 10:55AM ; [facility] Surgical / procedural history orthroscop ic left knee surg ~d&c ~bile duct 02/23/2019 Last Documented On 9 10:55AM ; [facility] Medical History Includes: Medical History addressed during this encounter Description Last Updated Last pap smear date 11/17/2018 02/23/2019 Last Documented On 9 10:55AM ; [facility] FREQUENT UTI'S ~D & C 02/23/2019 Last Documented On 9 10:55AM ; [facility] 3 02/23/2019 Last Documented On 9 10:55AM ; [facility] History of a DXA of the lateral lumbar s pine was performed 02/12/2013 02/23/2019 Last Documented On 9 10:55AM ; [facility] History of benign essential hypertension 02/23/2019 Last Documented On 9 10:55AM ; [facility] History of chronic obstructive pulmonary disease 02/23/2019 Last Documented On 9 10:55AM ; [facility] History of complete colonoscopy 2009 Last Documented On 9 10:55AM ; [facility] History of hyperlipidemia 02/23/2019 Last Documented On 9 10:55AM ; [facility] History of menopause lmp more than 5 yrs ago 02/23/2019 Last Documented On 9 10:55AM ; [facility] History of Pap smear done 11/16/201702/09 Last Documented On 9 10:55AM ; [facility] History of screening mammogram was perfo rmed 08/23/2017 02/23/2019 Last Documented On 9 10:55AM ; [facility] LMP: 2003 02/23/2019 Last Documented On 9 10:55AM ; [facility] No recent change in medical history 02/09 Last Documented On 9 10:55AM ; [facility] Para 3 02/23/2019 Last Documented On 9 10:55AM ; [facility] Result: normal 02/23/2019 Last Documented On 9 10:55AM ; [facility] Result: normal 02/23/2019 Last Documented On 9 10:55AM ; [facility] Sexually active 02/23/2019 Last Documented On 9 10:55AM ; [facility] Family History Includes: Family History addressed during [...] Active Last Documented On 9 2:23PM ; [facility] Codeine Allergy 06/09/2009 Active Last Documented On 9 2:23PM ; [facility] Encounters Encounter Provider Location Date Check-In Time Check-Out Time Diagnosis ENDOMETRIAL BIOPSY ROWAN INGRAM [facility] LEAD CUSTOMER SERVICE REPRESENTATIVE 02/24/20 19 10:30AM 11:05AM Clinical Notes Includes: Clinical Notes from this encounter No Clinical Notes Recorded
--- OUTSIDE RECORDS SUMMARY | 2024-07-10 10:51 | XMS_ITS | Encounter Summary ---
Author Organization [facility] Healthcare Address [address] [place] [address] Care Team Providers Care Belt Turner Name Role Phone Sintia Santoyo CABANA ATTENDANT Unavailable [phone] Davey Myles CABANA ATTENDANT Unavailable [phone] Charlie Mtz MD Primary Care Provider [phone] Encounter Details Date Type Department Care Team (Late st Contact Info) Description 07/10/2024 Nurse Triage [facility] [address] [address] Charlie Mtz MD [address] [place] [address] Social History Tobacco Use Types Packs/Day Years Used Date Smoking Tobacco: Former Cigarettes 0.8 28 0 06/25/1993 - 06/25/2021 Smokeless Tobacco: Former Quit: 06/25/2021 Alcohol Use Standard Drinks/Week Comments No 0 (1 standard drink = 0.6 oz pur e alcohol) [facility] Utilities Answer Date Recorded In the past 12 months has [employer], gas, oil, or water company threatened to shut off services in your [...] often do you attend chur ch or holiness services? More than 4 times per year 03/18/2023 Do you belong to any clubs o r organizations such as jew groups, unions, fraternal or athletic groups, or [...] place to sleep or slept in a residential (including now)? No 03/18/2023 Personal Safety Answer [...] on file Legal Sex Female 3:09 PM RN VASCULAR Gender Identity Not on file Sexual Orientation Not on file Occupation Industry Job Start Date Job End Date RETIRED Not on file Not on file Not on file documented as of this encounter Miscellaneous Notes * Telephone Encounter - Joyce Tello RN - 07/10/2024 9:49 AM CDT Regarding: severe left ear pain ----- Message from Carol Brown sent at 07/10/2024 9:42 AM CDT ----- Symptom Based Call Chief Complaint(s): severe left ear pain Duration: 1 day What type of symptom(s) is the patient experiencing? Red Flag. Is the patient concerned they are experiencing a medical emergency requiring an ambulance? No Additional Comments: No other symptoms noted. Does message need to be routed? Yes-Action Needed documented in this encounter Plan of Treatment Not on file documented as of this encounter Goals Goal Patient Goal Type Associated Problems Recent Progress Patient-Stated? Author BH-Pain Behavioral Health Improving( 1:51 PM CDT) No Lorrie Veras, RN Note: Patient will establish a comfort-function goal and identify the pain level that will allow the patient to perform desired activities and achieve an acceptable quality of life. documented as of this encounter Visit Diagnoses Not on filedocumented in this encounter Care Teams Belt Turner Relationship Specialty Start Date [place] [address] PCP - General Family Medicine 05/28/21 Sintia Santoyo NP Nurse Practitioner Obstetrics and Gynecology 07/13/18 Davey Myles NP Nurse Practitioner Family Practice 10/16/20 documented as of this encounter
--- OUTSIDE RECORDS SUMMARY | 2024-07-10 10:51 | XMS_ITS | Encounter Summary ---
Author Organization [facility] Healthcare Address [address] [place] [address] Care Team Providers Care Launderette Attendant Name Role Phone Marc Santoyoie Lupe HEALTH ECONOMIST Unavailable [phone] Davey Myles HEALTH ECONOMIST Unavailable [phone] Charlie Mtz MD Primary Care Provider [phone] Reason for Visit * Reason Onset Date Comments Forms Request 06/21/2024 Encounter Details Date Type Department Care Team (Late st Contact Info) Description 06/21/2024 Telephone [facility] [address] [place] [address] Charlie Mtz MD [address] [place] [id number] Forms Request Social History Tobacco Use Types Packs/Day Years Used Date Smoking Tobacco: Former Cigarettes 0.8 28 0 06/25/1993 - 06/25/2021 Smokeless Tobacco: Former Quit: 06/25/2021 Alcohol Use Standard Drinks/Week Comments No 0 (1 standard drink = 0.6 oz pur e alcohol) [facility] Utilities Answer Date Recorded In the past 12 months has [employer], gas, oil, or water company threatened to [...] often do you attend chur ch or sabianist services? More than 4 times per year 03/18/2023 Do you belong to any clubs o r organizations such as nondenominational groups, unions, fraternal or athletic groups, or [...] place to sleep or slept in a longterm (including now)? 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 * Telephone Encounter - Christy Medel - 06/21/2024 10:39 AM CDT Forms Request Form requested: Other Form Form Name: Medical marijuana form Date needed: LUCILLE, previous for on 06/07/23 How is patient delivering to office: Asking if provider has the form to complete or if she will need to get a form Who is form being returned to? Patient How to return form to patient:pickup at practice and stated she is not sure. Additional Comments: none Does message need to be routed? Yes-Action Needed documented in this encounter Plan of Treatment Not on file documented as of this encounter Goals Goal Patient Goal Type Associated Problems Recent Progress Patient-Stated? Author GRACIELA-Pain Behavioral Health Improving( 1:51 PM CDT) No Lorrie Veras, LEA Note: Patient will establish a comfort-function goal and identify the pain level that will allow the patient to perform desired activities and achieve an acceptable quality of life. documented as of this encounter Visit Diagnoses Not on filedocumented in this encounter Care Teams Launderette Attendant Relationship Specialty Start Date End Date Charlie [place] [address] PCP - General Family Medicine 05/28/21 Sintia Santoyo NP Nurse Practitioner Obstetrics and Gynecology 07/13/18 Davey Myles NP Nurse Practitioner Family Practice 10/16/20 documented as of this encounter
--- OUTSIDE RECORDS SUMMARY | 2024-07-10 10:51 | XMS_ITS | Clinical Summary ---
Author Organization [facility] Address [address] [place] [address] Phone Care Team Providers Care Soil Engineer Name Role Phone Unavailable Unavailable Unavailable Reason for Visit and Chief Complaint gynecologic annual exam - The Chief Complaint is: Annual Problems Includes: Problems addressed during this encounter and other active Problems Current Visit Onset Date Resolved Date Provider Conditio n Status Chronic Obstructive Pulmonary Disease 11/17/2018 ROWAN INGRAM NP-BC Active Last Documented On 9 2:25PM ; [facility] Past Visits Onset Date Resolved Date Provider Condition Status Previous Colposcopy 01/15/2013 ROWAN INGRAM NP-BC Active Last Documented On 01/15/2013 12:53PM ; [facility] Note: - FAIZAN! HYPERLIPIDEMIA NEC/NOS 01/20/2012 CE BIRCH MD Active Last Documented On 2 3:01PM ; [facility] HYPERTENSION NOS 12/09/2011 CE BIRCH MD Ac tive Last Documented On 2 10:05AM ; [facility] Plan of Treatment - Clinical summary provided to patient - Last Documented On 11/17/2018 2:42PM ; [facility] Instructions to patient Instructions for patient : B reast Self Exam discussed Last Documented On 9 2:01PM ; [facility] Lose weight Last Documented On 9 2:02PM ; [facility] Colonoscopy Handout given to patient Last Documented On 9 2:02PM ; [facility] Education and Decision Aids were provided during visit for: Patient Education: Daily rashi cium and vitamin D Last Documented On 9 2:01PM ; [facility] Patient Education: weight be aring exercise Last Documented On 9 2:01PM ; [facility] Smoking cessation advised Last Documented On 9 2:02PM ; [facility] Assessments Includes: Assessments from this encounter Findings - NORMAL FEMALE EXAM - Last Documented On 11/17/2018 2:42PM ; [facility] - Screening Malig. Neoplasm Rectum - Last Documented On 11/17/2018 2:42PM ; [facility] Instructions Includes: Instructions from this encounter Instructions to patient Instructions for patient : B reast Self Exam discussed Last Documented On 9 2:01PM ; [facility] Lose weight Last Documented On 9 2:02PM ; [facility] Colonoscopy Handout given to patient Last Documented On 9 2:02PM ; [facility] Education and Decision Aids were provided during visit for: Patient Education: Daily rashi cium and vitamin D Last Documented On 9 2:01PM ; [facility] Patient Education: weight be aring exercise Last Documented On 9 2:01PM ; [facility] Smoking cessation advised Last Documented On 9 2:02PM ; [facility] Medical Equipment - Implanted Devices Includes: Current Devices No Medical Equipment Recorded Medications Includes: Medications discussed during this encounter and other current Medications Discontinued / Stopped on this date on 11/16/2017 Ergocalciferol [id number] Oral Capsule Pro vider: Diagnosis: Last Documented On 9 2:24PM By DESHAWN DOYLE ; [facility] Current Medications (continue as prescribed) Co Q10 100MG Oral Capsule 11/17/2018 Provider: Diagnosis: Last Documented On 9 2:24PM By DESHAWN DOYLE ; [facility] Tribenzor 40-10-25MG Oral Tablet 11/17/2018 Provider : Diagnosis: Last Documented On 9 2:24PM By DESHAWN DOYLE ; [facility] Omeprazole 20MG Oral Tablet Delayed Release 2017 Provider: Diagnosis: Last Documented On 8 12:41PM By DONALDO DOYLE ; [facility] Bystolic 20MG Oral Tablet 11/16/2017 Provider: Diagnosis: Last Documented On 8 12:41PM By DONALDO DOYLE ; [facility] Fetzima 80MG Oral Capsule Extended Release 24 Hour 11/2017 Provider: Diagnosis: Last Documented On 8 12:42PM By DONALDO DOYLE ; [facility] Biotin 5000MCG Oral Capsule 11/16/2017 Provider: Diagnosis: Last Documented On 8 12:42PM By DONALDO DOYLE ; [facility] Fish Oil 1000MG Oral Capsule 11/16/2017 Provider : Diagnosis: Last Documented On 8 12:42PM By DONALDO DOYLE ; [facility] Fkixbbfnxo-Cmweccptri-IRIR 40-10-25MG Oral Tablet 11/2017 Provider: Diagnosis: Last Documented On 8 12:43PM By DONALDO DOYLE ; [facility] Welchol 625 MG OR TABS 01/15/2013 Provider: Diagnosis: Last Documented On 01/15/2013 1:05PM By DONALDO DOYLE ; [facility] Bystolic 5 MG OR TABS 12/09/2011 Provider: Diagnosis: Last Documented On 12/09/2011 10:03AM By AV CORCORAN ; [facility] Spiriva HandiHaler 18 MCG IN CAPS 12/09/2011 Provide r: Diagnosis: Last Documented On 12/09/2011 10:04AM By AV CORCORAN ; [facility] Past Medications on file Keflex 500 MG OR CAPS 01/30/2008 - 02/06/2008 Provider : Diagnosis: Last Documented On 06/09/2009 12:22PM By VIRIDIANA PINTO ; [facility] Medications Administered Includes: Administered Medications from this encounter No Administered Medications Recorded Vital Signs Includes: Vital Signs from this encounter Vital Name 11/17/2018 02:14P Blood Pressure Sitting L 122/72 BP Cuff Size Large Height (in) 62 Weight (lb) 192 Body Mass Index (kg/m2) 35.1 Body Surface Area (m2) 1.9 Last Documented: On 11/17/2018 2:19PM ; [facility] Results Includes: Results discussed during this encounter No Results Recorded For Specified Dates History of Present Illness Includes: History of Present Illness from this encounter PEDRITO GAMBINO is a 63 year old female. - Medication list reviewed - PRIMARY CARE PROVIDER : Dr Tompkins - No vertigo Social History Description Last Updated L[employer] affiliation TAOISM 9 Last Documented On 9 2:11PM ; [facility] Alcohol use 11/17/2018 Last Documented On 9 2:42PM ; [facility] Cigarette smoking 11/17/2018 Last Documented On 9 2:42PM ; [facility] In monogamous relationship 11/17/2018 Last Documented On 9 2:42PM ; [facility] Not using drugs 11/17/2018 Last Documented On 9 2:42PM ; [facility] Sexually active with 1 partners in the l ast year 11/17/2018 Last Documented On 9 2:42PM ; [facility] Smoking status : Current everyday smoker 11/17/2018 Last Documented On 9 2:42PM ; [facility] Social history unchanged 11/17/2018 Last Documented On 9 2:42PM ; [facility] Procedures and Surgical History Includes: Procedures from this encounter Procedures Code Diagnosis Performing Provider Service L ocation Service Date low fat diet Last Documented On 9 2:02PM ; [facility] Preventive Medicine Services (medicare pt) G0101 Last Documented On 9 2:17PM ; [facility] Pap smear done [id number] Last Documented On 9 2:02PM ; [facility] fecal occult blood test was negative [id number] Last Documented On 9 2:01PM ; [facility] Cervical Pap Smear performed [id number] Last Documented On 9 2:02PM ; [facility] Surgical History Last Updated Dilation + Curettage 02/23/2019 Last Documented On 9 2:11PM ; [facility] Surgical / procedural history orthroscop ic left knee surg ~d&c ~bile duct 02/23/2019 Last Documented On 9 2:11PM ; [facility] Medical History Includes: Medical History addressed during this encounter Description Last Updated FREQUENT UTI'S ~D & C 02/23/2019 Last Documented On 9 2:11PM ; [facility] 3 02/23/2019 Last Documented On 9 2:11PM ; [facility] History of benign essential hypertension 02/23/2019 Last Documented On 9 2:11PM ; [facility] History of chronic obstructive pulmonary disease 02/23/2019 Last Documented On 9 2:11PM ; [facility] History of hyperlipidemia 02/23/2019 Last Documented On 9 2:11PM ; [facility] History of menopause lmp more than 5 yrs ago 02/23/2019 Last Documented On 9 2:11PM ; [facility] LMP: 2003 02/23/2019 Last Documented On 9 2:11PM ; [facility] Para 3 02/23/2019 Last Documented On 9 2:11PM ; [facility] No recent change in medical history 12/2018 Last Documented On 9 2:42PM ; [facility] Sexually active 11/17/2018 Last Documented On 9 2:42PM ; [facility] History of a DXA of the lateral lumbar s pine was performed 02/12/2013 11/17/2018 Last Documented On 9 2:42PM ; [facility] History of complete colonoscopy 12/2018 Last Documented On 9 2:42PM ; [facility] History of Pap smear done 11/16/201712/2018 Last Documented On 9 2:42PM ; [facility] History of screening mammogram was perfo rmed 08/23/2017 11/17/2018 Last Documented On 9 2:42PM ; [facility] Result: normal 11/17/2018 Last Documented On 9 2:42PM ; [facility] Result: normal 11/17/2018 Last Documented On 9 2:42PM ; [facility] Family History Includes: Family History addressed during this encounter Description Last Updated Family history unchanged 11/17/2018 Last Documented On 9 2:42PM ; [facility] Maternal history of hypertension mother 11/17/2018 Last Documented On 9 2:42PM ; [facility] Paternal grandmother's histo ry of family history of heart disease pgm-swollen heart 11/17/2018 Last Documented On 9 2:42PM ; [facility] Sororal history of diabetes mellitus sis ter. Mother is borderline 11/17/2018 Last Documented On 9 2:42PM ; [facility] Spouse name: Shayne 01/15/2013 Last Documented On 9 2:11PM ; [facility] Family medical history of high blood pre ssure 06/09/2009 Last Documented On 9 2:11PM ; [facility] Review of Systems Includes: Review of Systems from this encounter Gastrointestinal: No pelvic pain. Genitourinary: No postmenopausal bleeding. No vaginal discharge. Neurological: No recent falls and no difficulty walking. Mental Status Includes: Mental Status from this encounter No Mental Status Recorded Functional Status Includes: Functional Status from this encounter No Functional Status Recorded Physical Exam Includes: Physical Exam from this encounter Allergies Includes: Active Allergies Substance Type Reaction Onset Date Resolved Date Statu s Tetanus Toxoid Adsorbed Allergy 11/16/2017 Active Last Documented On 9 2:23PM ; [facility] Codeine Allergy 06/09/2009 Active Last Documented On 9 2:23PM ; [facility] Encounters Encounter Provider Location Date Check-In Time Check-Out Time Diagnosis ANNUAL MANAGER SOLUTION EXAM ROWAN INGRAM [facility] 11/18/19 19 1:59PM 2:44PM Screening Malig. Neoplasm Rectum,Normal Female Exam Clinical Notes Includes: Clinical Notes from this encounter No Clinical Notes Recorded
--- OUTSIDE RECORDS SUMMARY | 2024-07-10 10:51 | XMS_ITS | Clinical Summary ---
Author Organization [facility] Address [address] [address] Care Team Providers Care Rainbow Trout Farm Manager Name Role Phone Jn Delgado MD Primary Care Provider [phone] Source Comments [facility],non-owned Affiliates and Associated Physician Practices is amultiple site organization consisting of ambulatory clinics and hospital sitesin [place], [place], [place] and [place]. This disclosure is being madepursuant to the Care Everywhere program and may not contain all information available regarding this patient. Last updated 17.[facility] Allergies Active Allergy Reactions Criticality Noted Date Comments Codeine Headache Low 05/11/2016 Tetanus Toxoid Swelling Medium 05/11/2016 Medications * Be aware that medications may not be up to date on this document. Alwaysverify current medications with the patient. Medication Sig Dispensed Refills Start Date End Date Status Gueqvrpjou-Fvzortyeqg-IZTK (TRIBENZOR PO) Active Colesevelam HCl (WELCHOL PO) Active Social History Tobacco Use Types Packs/Day Years Used Date Smoking Tobacco: Never Assessed Sex and Gender Information Value Date Recorded Sex Assigned at Not on file Gender Identity Not on file Sexual Orientation Not on file Last Filed Vital Signs Vital Sign Reading Time Taken Comments Blood Pressure 122/60 05/11/2016 6:05 PM MATCHBOOK MAKER Pulse 89 05/11/2016 6:05 PM MATCHBOOK MAKER Temperature 37.2 C (99 F) 05/11/2016 6:05 PM MATCHBOOK MAKER Respiratory Rate - - Oxygen Saturation - - Inhaled Oxygen Concentration - - Weight 90.7 kg (200 lb) 05/11/2016 6:05 PM MATCHBOOK MAKER Height 160 cm (5' 3 ) 05/11/2016 6:05 PM MATCHBOOK MAKER Body Mass Index 35.43 05/11/2016 6:05 PM MATCHBOOK MAKER Plan of Treatment Health Maintenance Due Date Last Done Comments BONE DENSITY TESTING 1955 COLOGUARD (AGES 45-75) - COL ON CA SCREENING 1955 COLON MONITORING 1953 COLONOSCOPY - COLON CA SCREENING 1953 CT COLONOGRAPHY - COLON CA SCREENING 1955 Colorectal Cancer Screening 1955 FIT - COLON CA SCREENING 1953 FLEX SIG - COLON CA SCREENING 1953 LIPID TESTING 1953 MAMMOGRAM 1953 HEPATITIS C SCREENING 07/02/1971 DTAP/TDAP/TD VACCINES (1 - Tdap) 1972 PNEUMOCOCCAL VACCINE 50+ (1 of 1 - PCV) 07/07/2003 ZOSTER VACCINE (1 of 2) 07/07/2003 COVID-19 VACCINE ( - 2023-2 5 season) 2023 INFLUENZA VACCINE (#1) 2023 DEPRESSION SCREENING 04/11/2024 Respiratory Syncytial Virus (RSV) Vaccine Pt: or over 60 yrs (1 - 1-dose 75+ series) 2028 HEPATITIS B VACCINE Aged Out No longe r eligible based on patient's age to complete this topic HIB VACCINE Aged Out No longer eligi ble based on patient's age to complete this topic HPV VACCINE Aged Out No longer eligi ble based on patient's age to complete this topic MENINGOCOCCAL (Group B) VACC INE SHARED DECISION-MAKING Aged Out No longer eligibl e based on patient's age to complete this topic MENINGOCOCCAL GROUPS A/C/Y/W VACCINE Aged Out No longer eligible b ased on patient's age to complete this topic Care Teams Rainbow Trout Farm Manager Relationship Specialty Start Date End Date Jn Delgado MD [address] [place] [address] PCP - General Internal Medicine 05/11/16
--- OUTSIDE RECORDS SUMMARY | 2024-07-10 10:51 | XMS_ITS ---
Author Organization [facility] Address [address] [place] [address] Phone Care Team Providers Care Electric Installer Name Role Phone Unavailable Unavailable Unavailable Problems Includes: Active, inactive, and resolved Problems All Visits Onset Date Resolved Date Provider Condition S tatus Chronic Obstructive Pulmonary Disease 11/17/2018 ROWAN A NATALY WHNP-BC Active Last Documented On 9 2:25PM ; [facility] Previous Colposcopy 01/15/2013 ROWAN INGRAM WH SENIOR AUDITOR-BC Active Last Documented On 3 12:53PM ; [facility] Note: - FAIZAN! HYPERLIPIDEMIA NEC/NOS 01/20/2012 CE BIRCH MD Active Last Documented On 2 3:01PM ; [facility] HYPERTENSION NOS 12/09/2011 CE BIRCH MD Ac tive Last Documented On 2 10:05AM ; [facility] Plan of Treatment Findings Encounter Date Call if any episodes of post menopausal bleeding - assuming bx results from today are WNL. Advised f/u with pcp if right lower quadrant pain recurs - denies today ENDOMETRIAL BIOPSY with ROWAN INGRAM WHNP-BC 02/23/2019 Last Documented On 9 10:55AM ; [facility] Ordered Clinical summary pro vided to patient ENDOMETRIAL BIOPSY with ROWAN INGRAM WHNP-BC 02/23/2019 Last Documented On 9 10:55AM ; [facility] Ordered Clinical summary pro vided to patient ANNUAL FREIGHT FORWARDER EXAM with ROWAN INGRAM WHNP-BC 11/17/2018 Last Documented On 9 2:42PM ; [facility] Ordered Clinical summary pro vided to patient NEW FIRST COOK EXAM with ROWAN INGRAM [facility]- 11/16/2017 Last Documented On 8 1:10PM ; [facility] Ordered follow-up visit 1 ye ar or as needed NEW FIRST COOK EXAM with ROWAN INGRAM [facility]-BC 11/16/2017 Last Documented On 8 1:10PM ; [facility] Ordered Clinical summary pro vided to patient ANNUAL WELL WOMEN EXAM with ROWAN INGRAM [facility]- 01/15/2013 Last Documented On 3 1:17PM ; [facility] Ordered follow-up visit 1 ye ar or as needed ANNUAL WELL WOMEN EXAM with ROWAN INGRAM [facility]- 01/15/2013 Last Documented On 3 1:17PM ; [facility] Ordered Clinical summary pro vided to patient COLPOSCOPY with CE BIRCH MD 01/20/2012 Last Documented On 2 3:34PM ; [facility] Instructions to patient Instructions for patient : B reast Self Exam discussed Last Documented On 9 2:01PM ; [facility] Lose weight Last Documented On 9 2:02PM ; [facility] Colonoscopy Handout given to patient Last Documented On 9 2:02PM ; [facility] Instructions for patient : B reast Self Exam discussed Last Documented On 8 12:16PM ; [facility] Lose weight Last Documented On 8 12:17PM ; [facility] Colonoscopy Handout given to patient Last Documented On 8 12:17PM ; [facility] Instructions for patient : B reast Self Exam discussed Last Documented On 3 12:52PM ; [facility] Lose weight Last Documented On 3 12:52PM ; [facility] Colonoscopy Handout given to patient Last Documented On 3 12:52PM ; [facility] Instructions for patient : B reast Self Exam discussed Last Documented On 2 10:05AM ; [facility] Education and Decision Aids were provided during visit for: INFORMED CONSENT DISCUSSION: Endometrial biopsy was discussed in detail including discomfort, insufficient specimen with need to repeat test, and rare incidence of uterine perforation. Patient expressed understanding of the above and consented to the procedure Last Documented On 9 10:32AM ; [facility] Patient Education: Daily rashi cium and vitamin D Last Documented On 9 2:01PM ; [facility] Patient Education: weight be aring exercise Last Documented On 9 2:01PM ; [facility] Smoking cessation advised Last Documented On 9 2:02PM ; [facility] Patient Education: Daily rashi cium and vitamin D Last Documented On 8 12:16PM ; [facility] Patient Education: weight be aring exercise Last Documented On 8 12:16PM ; [facility] Smoking cessation advised Last Documented On 8 12:47PM ; [facility] Patient counseling : discuss ed with patient importance of f/u re: increased risks of cervical cancer Last Documented On 3 1:17PM ; [facility] Patient Education: Daily rashi cium and vitamin D Last Documented On 3 12:52PM ; [facility] Patient Education: weight be aring exercise Last Documented On 3 12:52PM ; [facility] Smoking cessation advised Last Documented On 3 1:06PM ; [facility] INFORMED CONSENT DISCUSSION: Colposcopy was discussed in detail including risk of post procedure bleeding. Patient is not to have intercourse for 5 days following the procedure. Patient expressed understanding of the above and consented to the procedure Last Documented On 2 3:31PM ; [facility] INFORMED CONSENT DISCUSSION: Endometrial biopsy was discussed in detail including discomfort, insufficient specimen with need to repeat test, and rare incidence of uterine perforation. Patient expressed understanding of the above and consented to the procedure Last Documented On 2 3:33PM ; [facility] STD screening offered and de clined Last Documented On 2 10:05AM ; [facility] Bone Mineral Density Screeni ng guidelines reviewed Last Documented On 2 10:05AM ; [facility] Patient Education: Daily rashi cium and vitamin D Last Documented On 2 10:05AM ; [facility] Patient Education: weight be aring exercise Last Documented On 2 10:05AM ; [facility] Colonoscopy screening guidel ale discussed Last Documented On 2 10:05AM ; [facility] Assessments Includes: Assessments for all patient encounters Findings Encounter Date NORMAL FEMALE EXAM ANNUAL FREIGHT FORWARDER EXAM with ROWAN INGRAM [facility] 11/17/2018 Last Documented On 9 2:42PM ; [facility] Screening Malig. Neoplasm Rectum ANNUAL FREIGHT FORWARDER EXAM with ROWAN INGRAM [facility]-BC 11/17/2018 Last Documented On 9 2:42PM ; [facility] NORMAL FEMALE EXAM NEW FIRST COOK EXAM with ROWAN ROTH ALBERTO [facility]- 11/16/2017 Last Documented On 8 1:10PM ; [facility] Screening Malig. Neoplasm Rectum NEW FIRST COOK EXAM wi th ROWAN INGRAM [facility]- 11/16/2017 Last Documented On 8 1:10PM ; [facility] NORMAL FEMALE EXAM ANNUAL WELL WOMEN EXAM with Radhika Hopkins NATALY [facility] 01/15/2013 Last Documented On 3 1:17PM ; [facility] Screening Malig. Neoplasm Rectum ANNUAL WELL WOMEN EXAM with ROWAN Hopkins NATALY [facility]- 01/15/2013 Last Documented On 3 1:17PM ; [facility] Assessment of abnormal Pap s mear of cervix COLPOSCOPY with CE BIRCH MD 01/20/2012 Last Documented On 2 3:34PM ; [facility] Assessment of abnormal Pap s mear: atypical glandular cells COLPOSCOPY with CE BIRCH MD 01/20/2012 Last Documented On 2 3:34PM ; [facility] Female pelvic pain NEW FIRST COOK EXAM with CE KAPADIA MD 12/09/2011 Last Documented On 2 10:36AM ; [facility] Routine pelvic exam NEW FIRST COOK EXAM with CE SHEPHERD MD 12/09/2011 Last Documented On 2 10:36AM ; [facility] Screening Malig. Neoplasm Rectum NEW FIRST COOK EXAM wi th CE BIRCH MD 12/09/2011 Last Documented On 2 10:36AM ; [facility] Instructions Includes: Instructions for all patient encounters Instructions to patient Instructions for patient : B reast Self Exam discussed Last Documented On 9 2:01PM ; [facility] Lose weight Last Documented On 9 2:02PM ; [facility] Colonoscopy Handout given to patient Last Documented On 9 2:02PM ; [facility] Instructions for patient : B reast Self Exam discussed Last Documented On 8 12:16PM ; [facility] Lose weight Last Documented On 8 12:17PM ; [facility] Colonoscopy Handout given to patient Last Documented On 8 12:17PM ; [facility] Instructions for patient : B reast Self Exam discussed Last Documented On 3 12:52PM ; [facility] Lose weight Last Documented On 3 12:52PM ; [facility] Colonoscopy Handout given to patient Last Documented On 3 12:52PM ; [facility] Instructions for patient : B reast Self Exam discussed Last Documented On 2 10:05AM ; [facility] Education and Decision Aids were provided during visit for: INFORMED CONSENT DISCUSSION: Endometrial biopsy was discussed in detail including discomfort, insufficient specimen with need to repeat test, and rare incidence of uterine perforation. Patient expressed understanding of the above and consented to the procedure Last Documented On 9 10:32AM ; [facility] Patient Education: Daily rashi cium and vitamin D Last Documented On 9 2:01PM ; [facility] Patient Education: weight be aring exercise Last Documented On 9 2:01PM ; [facility] Smoking cessation advised Last Documented On 9 2:02PM ; [facility] Patient Education: Daily rashi cium and vitamin D Last Documented On 8 12:16PM ; [facility] Patient Education: weight be aring exercise Last Documented On 8 12:16PM ; [facility] Smoking cessation advised Last Documented On 8 12:47PM ; [facility] Patient counseling : discuss ed with patient importance of f/u re: increased risks of cervical cancer Last Documented On 3 1:17PM ; [facility] Patient Education: Daily rashi cium and vitamin D Last Documented On 3 12:52PM ; [facility] Patient Education: weight be aring exercise Last Documented On 3 12:52PM ; [facility] Smoking cessation advised Last Documented On 3 1:06PM ; [facility] INFORMED CONSENT DISCUSSION: Colposcopy was discussed in detail including risk of post procedure bleeding. Patient is not to have intercourse for 5 days following the procedure. Patient expressed understanding of the above and consented to the procedure Last Documented On 2 3:31PM ; [facility] INFORMED CONSENT DISCUSSION: Endometrial biopsy was discussed in detail including discomfort, insufficient specimen with need to repeat test, and rare incidence of uterine perforation. Patient expressed understanding of the above and consented to the procedure Last Documented On 2 3:33PM ; [facility] STD screening offered and de clined Last Documented On 2 10:05AM ; [facility] Bone Mineral Density Screeni ng guidelines reviewed Last Documented On 2 10:05AM ; [facility] Patient Education: Daily rashi cium and vitamin D Last Documented On 2 10:05AM ; [facility] Patient Education: weight be aring exercise Last Documented On 2 10:05AM ; [facility] Colonoscopy screening guideyaz aguilera discussed Last Documented On 2 10:05AM ; [facility] Medical Equipment - Implanted Devices Includes: Current and historical Devices No Medical Equipment Recorded Medications Includes: Current and historical Medications Current Medications (continue as prescribed) Co Q10 100MG Oral Capsule 11/17/2018 Provider: Diagnosis: Last Documented On 9 2:24PM By DESHAWN DOYLE ; [facility] Tribenzor 40-10-25MG Oral Tablet 11/17/2018 Provider : Diagnosis: Last Documented On 9 2:24PM By DESHAWN DOYLE ; [facility] Omeprazole 20MG Oral Tablet Delayed Release 2017 Provider: Diagnosis: Last Documented On 8 12:41PM By DONALDO DOYLE ; [facility] Bystolic 20MG Oral Tablet 11/16/2017 Provider: Diagnosis: Last Documented On 8 12:41PM By DONALDO DOYLE ; [facility] Fetzima 80MG Oral Capsule Extended Release 24 Hour 11/2017 Provider: Diagnosis: Last Documented On 8 12:42PM By DONALDO DOYLE ; [facility] Biotin 5000MCG Oral Capsule 11/16/2017 Provider: Diagnosis: Last Documented On 8 12:42PM By DONALDO DOYLE ; [facility] Fish Oil 1000MG Oral Capsule 11/16/2017 Provider : Diagnosis: Last Documented On 8 12:42PM By DONALDO DOYLE ; [facility] Ovacxowbcx-Zyxixqnllm-TLMQ 40-10-25MG Oral Tablet 11/2017 Provider: Diagnosis: Last Documented On 8 12:43PM By DONALDO DOYLE ; [facility] Welchol 625 MG OR TABS 01/15/2013 Provider: Diagnosis: Last Documented On 01/15/2013 1:05PM By DONALDO DOYLE ; [facility] Bystolic 5 MG OR TABS 12/09/2011 Provider: Diagnosis: Last Documented On 12/09/2011 10:03AM By AV CORCORAN ; [facility] Spiriva HandiHaler 18 MCG IN CAPS 12/09/2011 Provide r: Diagnosis: Last Documented On 12/09/2011 10:04AM By AV CORCORAN ; [facility] Past Medications on file Ergocalciferol [id number] Oral Capsule 11/16/2017 - 12/2018 Provider: Diagnosis: Last Documented On 9 2:24PM By DESHAWN DOYLE ; [facility] Tribenzor 40-10-25 MG OR TABS 12/09/2011 - 11/16/2017 Provider: Diagnosis: Last Documented On 8 12:42PM By DONALDO DOYLE ; [facility] Vytorin 10-20 MG OR TABS 12/09/2011 - 01/15/2013 Provi vera: Diagnosis: Last Documented On 01/15/2013 1:05PM By DONALDO DOYLE ; [facility] Keflex 500 MG OR CAPS 01/30/2008 - 02/06/2008 Provider : Diagnosis: Last Documented On 06/09/2009 12:22PM By VIRIDIANA PINTO ; [facility] Medications Administered Includes: Administered Medications in patient's chart No Administered Medications Recorded Results Includes: Results from 07/11/2023 through 07/10/2024 No Results Recorded For Specified Dates History of Present Illness History of Present Illness not supported for this document type No History of Present Illness Recorded Social History Description Last Updated Alcohol use 02/23/2019 Last Documented On 9 10:55AM ; [facility] Cigarette smoking 02/23/2019 Last Documented On 9 10:55AM ; [facility] In monogamous relationship 02/23/2019 Last Documented On 9 10:55AM ; [facility] Not using drugs 02/23/2019 Last Documented On 9 10:55AM ; [facility] Yarsanism affiliation RELIGION 9 Last Documented On 9 10:55AM ; [facility] Sexually active with 1 partners in the l ast year 02/23/2019 Last Documented On 9 10:55AM ; [facility] Smoking status : Current everyday smoker 02/23/2019 Last Documented On 9 10:55AM ; [facility] Social history unchanged 02/23/2019 Last Documented On 9 10:55AM ; [facility] Procedures and Surgical History Surgical History Last Updated Dilation + Curettage 02/23/2019 Last Documented On 9 10:55AM ; [facility] Surgical / procedural history orthroscop ic left knee surg ~d&c ~bile duct 02/23/2019 Last Documented On 9 10:55AM ; [facility] Medical History Includes: Medical History in patient's chart Description Last Updated Last pap smear date 11/17/2018 02/23/2019 Last Documented On 9 10:55AM ; [facility] FREQUENT UTI'S ~D & C 02/23/2019 Last Documented On 9 10:55AM ; [facility] 3 02/23/2019 Last Documented On 9 10:55AM ; [facility] History of a DXA of the lateral lumbar s pine was performed 02/12/2013 02/23/2019 Last Documented On 9 10:55AM ; [facility] History of benign essential hypertension 02/23/2019 Last Documented On 9 10:55AM ; [facility] History of chronic obstructive pulmonary disease 02/23/2019 Last Documented On 9 10:55AM ; [facility] History of complete colonoscopy 2009 Last Documented On 9 10:55AM ; [facility] History of hyperlipidemia 02/23/2019 Last Documented On 9 10:55AM ; [facility] History of menopause lmp more than 5 yrs ago 02/23/2019 Last Documented On 9 10:55AM ; [facility] History of Pap smear done 11/16/201702/09 Last Documented On 9 10:55AM ; [facility] History of screening mammogram was perfo rmed 08/23/2017 02/23/2019 Last Documented On 9 10:55AM ; [facility] LMP: 2003 02/23/2019 Last Documented On 9 10:55AM ; [facility] No recent change in medical history 02/09 Last Documented On 9 10:55AM ; [facility] Para 3 02/23/2019 Last Documented On 9 10:55AM ; [facility] Result: normal 02/23/2019 Last Documented On 9 10:55AM ; [facility] Result: normal 02/23/2019 Last Documented On 9 10:55AM ; [facility] Sexually active 02/23/2019 Last Documented On 9 10:55AM ; [facility] Family History Includes: Family History in patient's chart Description Last Updated Family history unchanged 11/17/2018 Last Documented On 9 2:42PM ; [facility] Maternal history of hypertension mother 11/17/2018 Last Documented On 9 2:42PM ; [facility] Paternal grandmother's histo ry of family history of heart disease pgm-swollen heart 11/17/2018 Last Documented On 9 2:42PM ; [facility] Sororal history of diabetes mellitus sis ter. Mother is borderline 11/17/2018 Last Documented On 9 2:42PM ; [facility] Spouse name: Shayne 01/15/2013 Last Documented On 3 1:17PM ; [facility] Family history of heart disease pgm-swol lindsay heart 01/15/2013 Last Documented On 3 1:17PM ; [facility] Family history of hypertension mother Last Documented On 3 1:17PM ; [facility] Family history of diabetes mellitus sist er. Mother is borderline 12/09/2011 Last Documented On 2 10:36AM ; [facility] Family medical history of high blood pre ssure 06/09/2009 Last Documented On 0 12:27PM ; [facility] Review of Systems Review of Systems not supported for this document type No Review of Systems Recorded Mental Status No Mental Status Recorded Functional Status No Functional Status Recorded Physical Exam Physical Exam not supported for this document type No Physical Exam Recorded Allergies Includes: Active, inactive, and resolved Allergies Substance Type Reaction Onset Date Resolved Date Statu s Tetanus Toxoid Adsorbed Allergy 11/16/2017 Active Last Documented On 9 2:23PM ; [facility] Codeine Allergy 06/09/2009 Active Last Documented On 9 2:23PM ; [facility] Clinical Notes Includes: Signed Clinical Notes starting from 04/30/2022 No Clinical Notes Recorded
--- OUTSIDE RECORDS SUMMARY | 2024-07-10 10:51 | XMS_ITS ---
Care Plan - [facility] Created on: July 10, 2024 PREM GAMBINO : 1955 Sex: Female Author Organization [facility] Address [address] [place] [address] Phone Care Team Providers Care Head Of Integrated Media Name Role Phone Unavailable Unavailable Unavailable
--- OUTSIDE RECORDS SUMMARY | 2024-07-10 10:51 | XMS_ITS | Clinical Summary ---
Author Organization [facility] Address [address] [place] [address] Phone Care Team Providers Care Tuck Pointer Helper Name Role Phone Unavailable Unavailable Unavailable Reason for Visit and Chief Complaint DEXASCAN Problems Includes: Problems addressed during this encounter and other active Problems All Visits Onset Date Resolved Date Provider Condition S tatus Chronic Obstructive Pulmonary Disease 11/17/2018 ROWAN INGRAM NP-BC Active Last Documented On 9 2:25PM ; [facility] Previous Colposcopy 01/15/2013 ROWAN INGRAM TRADER FIXED INCOME-BC Active Last Documented On 3 12:53PM ; [facility] Note: - FAIZAN! HYPERLIPIDEMIA NEC/NOS 01/20/2012 CE BIRCH MD Active Last Documented On 2 3:01PM ; [facility] HYPERTENSION NOS 12/09/2011 CE BIRCH MD Ac tive Last Documented On 2 10:05AM ; [facility] Plan of Treatment No Plan of Treatment Recorded Assessments Includes: Assessments from this encounter No Assessments Recorded Medical Equipment - Implanted Devices Includes: Current Devices No Medical Equipment Recorded Medications Includes: Medications discussed during this encounter and other current Medications Current Medications (continue as prescribed) Co Q10 100MG Oral Capsule 11/17/2018 Provider: Diagnosis: Last Documented On 9 2:24PM By DESHAWN DOYLE ; [facility] Tribenzor 40-10-25MG Oral Tablet 11/17/2018 Provider : Diagnosis: Last Documented On 9 2:24PM By DESHAWN DOYLE ; [facility] Omeprazole 20MG Oral Tablet Delayed Release 2017 Provider: Diagnosis: Last Documented On 8 12:41PM By DONALDO DOYLE ; [facility] Bystolic 20MG Oral Tablet 11/16/2017 Provider: Diagnosis: Last Documented On 8 12:41PM By DONALDO DOYLE ; [facility] Fetzima 80MG Oral Capsule Extended Release 24 Hour 11/2017 Provider: Diagnosis: Last Documented On 8 12:42PM By DONALDO DOYLE ; [facility] Biotin 5000MCG Oral Capsule 11/16/2017 Provider: Diagnosis: Last Documented On 8 12:42PM By DONALDO DOYLE ; [facility] Fish Oil 1000MG Oral Capsule 11/16/2017 Provider : Diagnosis: Last Documented On 8 12:42PM By DONALDO DOYLE ; [facility] Yoecxfqvzg-Ittaqyckzv-LQIF 40-10-25MG Oral Tablet 11/2017 Provider: Diagnosis: Last Documented On 8 12:43PM By DONALDO DOYLE ; [facility] Welchol 625 MG OR TABS 01/15/2013 Provider: Diagnosis: Last Documented On 01/15/2013 1:05PM By DONALDO DOYLE ; [facility] Bystolic 5 MG OR TABS 12/09/2011 Provider: Diagnosis: Last Documented On 12/09/2011 10:03AM By AV CORCORAN ; [facility] Spiriva HandiHaler 18 MCG IN CAPS 12/09/2011 Provide r: Diagnosis: Last Documented On 12/09/2011 10:04AM By AV CORCORAN ; [facility] Medications Administered Includes: Administered Medications from [...] Active Last Documented On 9 2:23PM ; [facility] Codeine Allergy 06/09/2009 Active Last Documented On 9 2:23PM ; [facility] Encounters Encounter Provider Location Date Check-In Time Check-Out Time Diagnosis STEPHANIE INGRAM [facility] ELECTRIC RANGE SERVICER 11/30/2018 9:58AM 10:37AM Clinical Notes Includes: Clinical Notes from this encounter No Clinical Notes Recorded
--- OUTSIDE RECORDS SUMMARY | 2024-07-10 10:51 | XMS_ITS | Encounter Summary ---
Author Organization [facility] Address [address] [facility] [address] [place] [id number] Care Team Providers Care Office Machine Mechanic Name Role Phone Laz Rodríguez MD Primary Care Provider Jn Mcdonald MD Primary Care Provider [phone] Sydney Tompkins CELL INSTALLER Primary Care Provider [phone] Sydney Tompkins NP Primary Care Provider [phone] Laz Rodríguez MD Unavailable [phone] Jn Mcdonald MD Unavailable [phone] Sydney Tompkins NP Unavailable [phone] Sintia Santoyo CELL INSTALLER Unavailable [phone] Marlon Cronin MD Unavailable [phone] Davey Myles CELL INSTALLER Unavailable [phone] Charlie Mtz MD Primary Care Provider [phone] Denita Jones RN Unavailable [phone] Encounter Details Date Type Department Care Team (Late st Contact Info) Description 02/06/2013 Orders Only [facility] [place] [facility] [address] [place] [address] Scanning, Provider Social History Tobacco Use Types Packs/Day Years Used Date Smoking Tobacco: Never Assessed Alcohol Use Standard Drinks/Week Comments No 0 (1 standard drink = 0.6 oz pur e alcohol) Comments Unknown Sex and Gender Information Value Date Recorded Sex Assigned at Not on file Legal Sex Female 3:09 PM COST ACCOUNTING MANAGER Gender Identity Not on file Sexual Orientation Not on file documented as of this encounter Plan of Treatment Not on file documented as of this encounter Procedures Procedure Name Priority Date/Time Associated Diagnosis Comments SLEEP LAB/STUDY - RESULT 02/06/2013 documented in this encounter Results * SLEEP LAB/STUDY - RESULT (02/06/2013) us Provider Scanning Final Result documented in this encounter Visit Diagnoses Not on filedocumented in this encounter Additional Health Concerns Infection Onset Date Last Indicated Resolved Time COVID: Suspected 02/22/2020 02/22/2020 02/23/2020 5:41 AM COST ACCOUNTING MANAGER Respiratory Infection (BRITTNY), contact + droplet Comment:Automatically added due to negative COVID-19 result. 02/23/2020 02/23/2020 03/08/2020 3:0 7 AM COST ACCOUNTING MANAGER COVID: Suspected 04/28/2020 04/28/2020 04/28/2020 11:48 PM COST ACCOUNTING MANAGER Respiratory Infection (BRITTNY), contact + droplet Comment:Automatically added due to negative COVID-19 result. 04/28/2020 04/28/2020 05/12/2020 3:0 7 AM COST ACCOUNTING MANAGER Exposure, COVID-19 Comment:Added automatically based on COVID19 lab answers indicating exposure risk 03/10/2021 03/10/2021 03/25/2021 3:[address] COVID: Suspected 03/10/2021 03/10/2021 03/10/2021 4:53 PM COST ACCOUNTING MANAGER COVID: Suspected 03/26/2021 03/26/2021 03/26/2021 10:27 PM COST ACCOUNTING MANAGER COVID: Suspected 10/27/2021 10/27/2021 10/27/2021 11:28 AM CDT COVID19 10/27/2021 10/27/2021 11/06/2021 3:05 AM CDT COVID: Recovered Comment:Added based on recent COVID infection. 11/06/2021 12/03/2021 03/06/2022 3:[address] COVID: Suspected 04/30/2022 04/30/2022 04/30/2022 2:24 PM COST ACCOUNTING MANAGER COVID: Suspected 03/08/2023 03/08/2023 03/08/2023 11:30 AM COST ACCOUNTING MANAGER COVID: Suspected 03/12/2023 03/13/2023 03/13/2023 12:59 AM COST ACCOUNTING MANAGER documented as of this encounter Care Teams Office Machine Mechanic Relationship Specialty Start Date End Date Laz Rodríguez MD [address] [place] [address] PCP - General 10/15/10 10/21/16 Jn Mcdonald MD [address] [place] [address] PCP - General 10/22/16 06/20/18 Sydney Tompkins NP [address] [place] [address] PCP - General Family Medicine 06/21/18 07/10/18 Sydney Tompkins NP [address] [place] [address] PCP - General Family Medicine 07/11/18 05/27/21 [place] [address] PCP - General Family Medicine 05/28/21 Laz Rodríguez MD [address] [place] [address] 10/22/16 11/21/19 Jn Mcdonald MD [address] [place] [address] 06/21/18 07/10/18 Sydney Tompkins NP [address] [facility] [address] [place] [address] Family Medicine 07/11/18 07/12/18 Sintia Santoyo NP [address] [facility] [address] [place] [address] Nurse Practitioner Obstetrics and Gynecology 07/13/18 Marlon Cronin MD [address] [facility] [address] [place] [address] Consulting Physician Gastroenterology 07/13/18 10/15/20 Davey Myles NP [address] [facility] [address] [place] [address] Nurse Practitioner Family Practice 10/16/20 Denita Jones, RN [address] [place] [address] [address] [place] [address] Bale Breaker Operator 03/17/23 04/19/23 documented as of this encounter
--- OUTSIDE RECORDS SUMMARY | 2024-07-10 10:51 | XMS_ITS | Referral Summary ---
Author Organization [facility] Virtual Care Address [address] [place] [id number] Phone Care Team Providers Care Worm Sorter Name Role Phone Sintia Santoyo FLEXIBLE BABYSITTER Unavailable [phone] Davey Myles FLEXIBLE BABYSITTER Unavailable [phone] Charlie Mtz MD Primary Care Provider [phone] Encounters Date Type Department Care Team Description 07/10/2024 Nurse Triage [facility] [address] [phone] Charlie Mtz MD 07/09/2024 Telephone [facility] [address] [phone] Charlie Mtz MD Medical Question/Miscellaneo us 06/21/2024 Telephone [facility] [address] [phone] Charlie Mtz MD Forms Request 06/05/2024 Telephone [facility] [address] [phone] Charlie Mtz MD 05/31/2024 Telephone [facility] [address] [phone] Charlie Mtz MD Medical Records Request 05/31/2024 Telephone [facility] [address] [phone] Charlie Mtz MD Test Results 05/11/2024 1:02 PM PLASTER APPLICATOR - 05/11/2024 11:59 PM PLASTER APPLICATOR Hospital Encounter [facility] Card[facility] [address] [place] [address] Essential (primary) hypertension Discharge Disposition: Discharge to home or self care 05/11/2024 10:00 AM PLASTER APPLICATOR Lab [facility] Laboratory [address] [place] [address] 04/25/2024 Telephone [facility]opedics [facility] Sports Medicine [address] [facility] [address] [place] [phone] Shona Hauser MA from Last 3 Months Allergies Active Allergy Reactions Criticality Noted Date [...] 90 tablet 3 01/23/20 24 025 Active olmesartan-am LODIPin-hcthi azid 40-10-25 mg tablet Take 1 tablet by mouth daily 90 tablet 3 01/23/20 24 025 Active Tradjenta 5 mg tablet Take 1 [...] tablets (100 mg total) daily. 194 tablet 11/26/20 24 025 Discontinued sertraline (ZOLOFT) 50 mg [...] loss Assessment & Plan (06/16/2023 1:29 PM PLASTER APPLICATOR): Stable, generally well controlled, patient reports no [...] control Assessment & Plan (05/28/2021 1:00 PM PLASTER APPLICATOR): Not well controlled, encouraged patient continue to [...] options Assessment & Plan (06/16/2023 1:30 PM PLASTER APPLICATOR): Stable, well controlled, improving; patient reports she is more physically active, engaging in social activities, re-engage with anabaptism Would like to decrease Zoloft given vivid [...] 02/22/2020 Assessment & Plan (02/22/2020 12:16 PM PLASTER APPLICATOR): Small patch of atopic dermatitis on mid [...] today. Assessment & Plan (04/17/2019 2:34 PM PLASTER APPLICATOR): Repeat CBC in 2 weeks. She was previously taking steroids during her ED visit which may have falsely elevated her white blood count. Vitamin D deficiency 04/17/2019 Assessment & Plan (02/22/2020 9:32 AM PLASTER APPLICATOR): Last vitamin d level 12/07/2019 52. Recommend vitamin d3 2000 international units once daily. Assessment & Plan (11/24/2019 3:46 PM CDT): Continue vitamin d2 50,000 International units once weekly and repeat vitamin d level today. Assessment & Plan (04/17/2019 2:34 PM PLASTER APPLICATOR): [place] [address] units once weekly. Get vitamin-D level in 2 weeks with labs. High risk of cardiac event 04/17/2019 Assessment & Plan (09/02/2022 4:40 PM CDT): Stable, well controlled; continue pravastatin 40 mg daily; continue ASA 81 mg daily Encourage risk modifications Assessment & Plan (04/17/2019 2:34 PM PLASTER APPLICATOR): Patient's ASCVD risk score is 13.3%. I recommended that she be on statin instead of bile acid sequestrant for CV prophylaxis. Start atorvastatin 10 mg daily. Mixed hyperlipidemia 04/17/2019 Assessment & Plan (12/19/2023 10:41 AM CDT): Chronic, stable, well controlled Continue Pravastatin 40 mg daily Assessment & Plan (06/16/2023 1:29 PM PLASTER APPLICATOR): Stable, well controlled, lipids in optimal range Continue pravastatin 40 mg daily Assessment & Plan (06/09/2022 4:56 PM PLASTER APPLICATOR): Well controlled, lipids at target Continue pravastatin 40 mg nightly Assessment & Plan (12/15/2021 4:59 PM CDT): Stable, well controlled; continue pravastatin 40 mg nightly Assessment & Plan (09/08/2021 2:06 PM CDT): Stable, generally well controlled; continue pravastatin 40 mg nightly Assessment & Plan (07/09/2021 11:01 AM CDT): Stable, well controlled; continue pravastatin 40 mg nightly Assessment & Plan (05/28/2021 12:58 PM PLASTER APPLICATOR): Stable, well controlled last lipid panel demonstrated normal total cholesterol, LDL mildly elevated 114; continue to monitor encourage low-fat high-fiber diet Continue pravastatin 40 mg daily Assessment & Plan (11/30/2020 1:37 PM CDT): Lipids are well controlled on pravastatin 40 mg once daily. Assessment & Plan (02/22/2020 12:13 PM PLASTER APPLICATOR): Lipids are well controlled on pravastatin 40 mg once daily. Assessment & Plan (11/24/2019 3:43 PM CDT): Continue pravastatin 40 mg daily. Repeat lipid profile today. Recommended Mediterranean diet. Do not think keto diet facilitates a heart healthy diet. Assessment & Plan (09/07/2019 1:31 PM CDT): Continue pravastatin 40 mg daily. Repeat lipid profile in November. Assessment & Plan (04/17/2019 2:35 PM PLASTER APPLICATOR): Lipid abnormalities are unchanged. Nutritional counseling was [...] visit; 124/76 Continue Bystolic 20 mg and Qrllyjsyoq-simtydqmar-LLZQ 40-10-25 mg daily Assessment & Plan (08/08/2023 1:14 PM CDT): Stable, well controlled; blood pressure goals; continue Bystolic 20 mg daily, rrrevuojgq-ekhoktfbug-rvtlkytmitdmxnhzrxz 40-10-25 mg Assessment & Plan (06/16/2023 1:29 PM PLASTER APPLICATOR): Stable, well controlled, blood pressure at goal; patient reports no chest pain or headaches Continue Bystolic 20 mg daily, iktruuynus-nimguamkma-ooackykrwrnnivbkrlz 40-10-251 tablet daily; Assessment & Plan (09/02/2022 4:39 PM CDT): Stable, well controlled; blood pressure at target No chest pain or headaches Continue Bystolic 20 mg daily, Tribenzor 40-10-251 tablet daily Assessment & Plan (06/09/2022 4:57 PM PLASTER APPLICATOR): Stable, blood pressure at target Continue Tribenzor [...] daily Assessment & Plan (05/28/2021 12:59 PM PLASTER APPLICATOR): Stable, generally well controlled; blood pressure mildly [...] appointment. Assessment & Plan (02/22/2020 12:14 PM PLASTER APPLICATOR): Hypertension is improved. Continue current treatment regimen. [...] appointment. Assessment & Plan (04/17/2019 2:32 PM PLASTER APPLICATOR): Hypertension is improving with treatment. Continue current [...] cessation Assessment & Plan (05/28/2021 1:02 PM PLASTER APPLICATOR): Patient continues to smoke, smoking about 1 pack per day Encouraged patient to continue to work towards complete cessation Patient understands importance of smoking, but is not yet gotten to change mind set Assessment & Plan (11/30/2020 1:39 PM CDT): Encourage smoking cessation. Assessment & Plan (02/22/2020 12:12 PM PLASTER APPLICATOR): Encourage smoking cessation. Had quit for almost [...] phone. Assessment & Plan (04/17/2019 2:33 PM PLASTER APPLICATOR): Encourage smoking cessation. Assessment & Plan (11/15/2018 [...] daily Assessment & Plan (06/09/2022 4:59 PM PLASTER APPLICATOR): Stable, last A1c was 6.2; at target [...] daily Assessment & Plan (05/28/2021 12:59 PM PLASTER APPLICATOR): Continue to monitor, check A1c to evaluate blood sugars are continue to elevate Continue Tradjenta 5 mg Assessment & Plan (11/30/2020 1:38 PM CDT): A1c today Continue Tradjenta 5 mg once daily. Assessment & Plan (02/22/2020 12:13 PM PLASTER APPLICATOR): A1c well controlled at 6.3. Continue Tradjenta 5 mg once daily. Assessment & Plan (11/24/2019 3:45 PM CDT): Patient on Tradjenta 5 mg daily. Continue medication and diet lifestyle modifications. Assessment & Plan (04/17/2019 2:32 PM PLASTER APPLICATOR): Patient on Tradjenta 5 mg daily. A1c [...] daily Assessment & Plan (06/09/2022 4:58 PM PLASTER APPLICATOR): Stable, improving, quit smoking June 25, 2021; [...] dyspnea, though does report decreased insurance and custodial Discussed with patient importance of continued activity and exercise in order to maintain pulmonary help Congratulated patient on smoking cessation will continue Spiriva 18 mcg daily Assessment & Plan (05/28/2021 1:01 PM PLASTER APPLICATOR): Stable, generally well controlled; patient has few [...] p.r.n. Assessment & Plan (02/22/2020 12:16 PM PLASTER APPLICATOR): COPD is worsening. Discussed monitoring symptoms and [...] steroids. Assessment & Plan (04/17/2019 2:32 PM PLASTER APPLICATOR): COPD is improving with treatment. Discussed monitoring [...] levels Assessment & Plan (06/09/2022 4:58 PM PLASTER APPLICATOR): Not well controlled, patient reports symptoms beginning worse; patient reports episodes of agoraphobia; worry about leaving house due to concerns for panic attacks Patient every 6 months ago; continues to have grief related to also Refer to [facility] for individual counseling Continue sertraline 100 mg daily; start diazepam 2 mg p.r.n. for panic attacks Assessment & Plan (05/28/2021 1:01 PM PLASTER APPLICATOR): Not well controlled, patient has multiple recent [...] 07/12/2018 Assessment & Plan (06/16/2023 1:30 PM PLASTER APPLICATOR): Not well controlled, has been having some difficulty; recently neighbor mode throwing up significant amounts of dust which worsened her symptoms Hoarse voice and nasal changes in swelling, especially morning Continue daily antihistamine, continue Flonase 2 sprays 1-2 times daily Assessment & Plan (12/15/2021 5:00 PM CDT): Generally stable; patient reports symptoms, on-off Continue srkk-fzw-bagnwjy antihistamine; Flonase 2 sprays each nostril daily [...] (08/05/2020): Added automatically from request for surgery [id number] Assessment & Plan (09/09/2020 5:51 PM CDT): [...] up. Assessment & Plan (05/19/2020 4:51 PM PLASTER APPLICATOR): Noted from recent urinalysis. Will repeat urinalysis to better evaluate her urine. Upper abdominal pain 05/08/2020 021 Overview (05/08/2020): Added automatically from request for surgery [id number] Assessment & Plan (05/19/2020 4:51 PM PLASTER APPLICATOR): Patient has chronic intermittent upper abdominal pain [...] 11/30/2020 Assessment & Plan (02/22/2020 12:13 PM PLASTER APPLICATOR): Patient has a new cough over the last 1 week. I recommended testing for COVID - 19 considering her new symptoms. Reviewed self isolation procedures. Referral for testing placed today. Abnormal feces 05/10/2019 12/19/2023 Overview (05/10/2019): Added automatically from request for surgery [id number] Obesity (BMI 30-39.9) 07/12/20182021 Assessment & Plan [...] daily. Assessment & Plan (04/17/2019 2:32 PM PLASTER APPLICATOR): Obesity is worsening. Discussed the patient's BMI. [...] again. Assessment & Plan (04/27/2017 10:00 AM PLASTER APPLICATOR): Mild pain. Associated with tenderness in the [...] colposcopy 01/15/20132023 Overview (11/22/2019): Note: - FAIZAN! Immunizations Immunization Administration Dates Next Due Influenza, [...] adsorbed 07/11/2018(Deferred: Sam briones) ZOSTER Recombinant 02/08/2023 Social History Tobacco Use Types Packs/Day Years Used Date Smoking Tobacco: Former Cigarettes 0.8 28 0 06/25/1993 - 06/25/2021 Smokeless Tobacco: Former Quit: 06/25/2021 Tobacco Cessation:Counseling Given: Not Answered Alcohol Use Standard Drinks/Week Comments No 0 (1 standard drink = 0.6 oz pur e alcohol) [facility] Utilities Answer Date Recorded In the past 12 months has th e [employer], gas, oil, or water [employer] threatened to shut off services in your [...] week 03/18/2023 How often do you attend [facility] ch or lutheran services? More than 4 times per year 03/18/2023 Do you belong to any clubs o r organizations such as anabaptism groups, unions, fraternal or athletic groups, or [...] place to sleep or slept in a long term (including now)? No 03/18/2023 Personal Safety Answer [...] on file Legal Sex Female 3:09 PM PLASTER APPLICATOR Gender Identity Not on file Sexual Orientation Not on file Occupation Industry Job Start Date Job End Date RETIRED Not on file Not on file Not on file Last Filed Vital Signs [...] 12/19/2023 10:04 AM CDT Plan of Treatment Not on file Goals Goal Patient Goal Type Associated Problems Recent Progress Patient-Stated? Author [facility] Improving( 1:51 PM CDT) Lorrie Layton, RN Note: Patient will establish a comfort-function goal and identify the pain level that will allow the patient to perform desired activities and achieve an acceptable quality of life. Procedures Procedure Name Priority Date/Time Associated Diagnosis Comments ECG 12-LEAD Routine 05/11/2024 1:16 PM PLASTER APPLICATOR Essential (primary) hypertension EGFR Routine 05/11/2024 10:07 AM PLASTER APPLICATOR URINALYSIS, MICROSCOPIC ONLY Routine 05/11/2024 10:07 AM PLASTER APPLICATOR DIFFERENTIAL AUTO Routine 05/11/2024 10: 07 AM PLASTER APPLICATOR BASIC METABOLIC PANEL Routine 05/11/2024 10:07 AM PLASTER APPLICATOR HEMOGLOBIN A1C Routine 05/11/2024 10:07 AM PLASTER APPLICATOR CBC WITH AUTO DIFFERENTIAL Routine 05/11/2024 10:07 AM PLASTER APPLICATOR URINALYSIS AND REFLEX TO MICROSCOPIC AND CULTURE Routine 05/11/2024 10:07 AM PLASTER APPLICATOR SCREENING MAMMOGRAM BILATERAL W ANDREW Schedule Routine, Read Routine (OP Routine) 01/16/2024 2:28 PM CDT Screening mammogram, encounter for DEXA AXIAL SKELETON BONE DENSITY 1 OR MORE SITES Schedule Routine, Read Routine (OP Routine) 01/16/2024 2:16 PM CDT Post-menopausal CT LUNG CANCER SCREENING Schedule Routine, Read Routine (OP Routine) 07/13/2023 5:26 PM CDT Personal history of nicotine dependence COLONOSCOPY 05/22/2019 10:39 AM PLASTER APPLICATOR HEPATITIS C ANTIBODY Routine 05/18/2019 10:48 AM PLASTER APPLICATOR Encounter for hepatitis C screening test for low risk patient from Last 3 Months or Most Recently Relevant to Health Maintenance Results * ECG 12 lead (05/11/2024 1:16 PM PLASTER APPLICATOR) 05/11/2024 1:18 PM PLASTER APPLICATOR Narrative [facility] - 05/11/2024 2:51 PM PLASTER APPLICATOR Vent Rate: 60 bpm RR Interval: 988 msec VT Interval: 153 msec QRS Duration: 94 msec QT Interval: 424 msec QTC Interval: 425 msec P-R-T [place]: 33 - 75 - 47 degrees IMPRESSION: SINUS RHYTHM Probably normal. No prior EKG for comparison Electronically Signed By: Dr Jeff Austin Jarred Koch MD ECG ORDERABLES Final Result [facility] * eGFR (05/11/2024 10:07 AM PLASTER APPLICATOR) eGFR >90 >=60 mL/min/1. 73 m2 Comment: [...] was last reviewed 2021. Testing performed by: [facility], [address] [place] [address], [place]., [address] Blood 05/11/2024 10:0 7 AM PLASTER APPLICATOR 05/11/2024 12:39 PM PLASTER APPLICATOR Jarred Koch MD LAB BLOOD ORDERABLES Final R esult [facility] ([place]) 1 [facility] Department [place] [address] * Differential, auto (05/11/2024 10:07 AM PLASTER APPLICATOR) Neutrophil abs 5.3 1.5 - 6.5 K/cumm Comment:Testing performed by : [facility], [address] [place] [address]., [id number] Imm gran abs 0.0 0.0 - 0.1 K/cumm [facility] (CR) Comment:Testing performed by : [facility], [address] [place] [address]., [address] Lymphocyte abs 2.0 0.8 - 3.3 K/cumm [facility] (CR) Comment:Testing performed by : [facility], [address] [place] [address]., [address] Monocyte abs 0.6 0.2 - 0.8 K/cumm [facility] (CR) Comment:Testing performed by : [facility], [address] [place] [address]., [address] Eosinophil abs 0.2 0.0 - 0.5 K/cumm [facility] (CR) Comment:Testing performed by : [facility], [address] [place] [address]., [address] Basophil abs 0.1 0.0 - 0.1 K/cumm [facility] (CR) Comment:Testing performed by : [address] [address] Neutrophil pct 64.4 % [facility] (RC) Comment: Interpretive Data Percent cell count reference ranges are not reported, since discordance with absolute values may lead to misinterpretation of CBC data. Current Interpretive Data was last revised on 2017. Testing performed by: [address], [address] Imm gran pct 0.2 % [facility] (CR) Comment: Interpretive Data Percent cell count reference ranges are not reported, since discordance with absolute values may lead to misinterpretation of CBC data. Current Interpretive Data was last revised on 2017. Testing performed by: [facility], [address] [place] [address]., [id number] Lymphocyte pct 24.5 % [facility] (CR) Comment: Interpretive Data Percent cell count reference ranges are not reported, since discordance with absolute values may lead to misinterpretation of CBC data. Current Interpretive Data was last revised on 2017. Testing performed by: [facility], [address] [place] [address]., [address] Monocyte pct 7.8 % [facility] (CR) Comment: Interpretive Data Percent cell count reference ranges are not reported, since discordance with absolute values may lead to misinterpretation of CBC data. Current Interpretive Data was last revised on 2017. Testing performed by: [facility], [address] [place] [address]., [id number] Eosinophil pct 2.5 % [facility] (CR) Comment: Interpretive Data Percent cell count reference ranges are not reported, since discordance with absolute values may lead to misinterpretation of CBC data. Current Interpretive Data was last revised on 2017. Testing performed by: [address] [address] Basophil pct 0.6 % [facility] (CR) Comment: Interpretive Data Percent cell count reference ranges are not reported, since discordance with absolute values may lead to misinterpretation of CBC data. Current Interpretive Data was last revised on 2017. Testing performed by: [address], [address] Blood 05/11/2024 10:0 7 AM PLASTER APPLICATOR 05/11/2024 10:07 AM PLASTER APPLICATOR Jarred Koch MD LAB BLOOD ORDERABLES Final R esult [facility] (CR) 1 [facility] Department [place] [address] * (ABNORMAL) Urinalysis reflex to microscopic and culture Urine, clean voided (05/11/2024 10:07 AM PLASTER APPLICATOR) Color, ur Yellow Yellow Comment:Testing performed by : [address] [address] Clarity, ur Clear Clear [facility] A (CR) Comment:Testing performed by : [address], [address] Specific gravity, ur 1.026 1.003 - 1.030 [facility] (CR) Comment:Testing performed by : [address], [address] pH, urine 5.5 [facility] (CR) Comment: Interpretive Data U rine pH is affected by diet, medications, systemic acid-base disturbances, and renal tubular function. pH may affect urinary stone formation. For example, urine pH below 6.0 may help reduce the tendency for calcium phosphate stones and pH greater than 6.0 may reduce the tendency for uric acid stone formation. Source: [facility] [place] Current Interpretive Data was last revised on 2017 Testing performed by: [address] [address] Protein, ur ql Negative Negative [facility] ([facility]) Comment:Testing performed by : [address], [address] Glucose, ur ql Negative Negative [facility] (CR) Comment:Testing performed by : [address], [address] Ketones, ur Negative Negative [facility] A (RC) Comment:Testing performed by : [address], [address] Bilirubin, ur Negative Negative [facility] (CR) Comment:Testing performed by : [address], [address] Blood, ur Trace(A) Negative [facility] (CR) Comment:Testing performed by : [address], [address] Urobilinogen, ur <2.0 <2.0 mg/dL [facility] (CR) Comment:Testing performed by : [address], [address] Nitrite, ur Negative Negative [facility] A (CR) Comment:Testing performed by : [address] [address] Leukocyte esterase, ur 3+(A) Negative [facility] (CR) Comment:Testing performed by : [address], [address] UA reflex comment Reflex to microscopic UA will be performed. [facility] (CR) Comment:Testing performed by : [address], [address] Urine, clean voided 05/11/2024 10:07 AM PLASTER APPLICATOR 05/11/2024 10:08 AM PLASTER APPLICATOR Jarred Koch MD LAB MICROBIOLOGY - GENERAL O KRYSTINA Final Result [facility] (CR) 1 [facility] Department [place] [address] * (ABNORMAL) CBC with auto differential (05/11/2024 10:07 AM PLASTER APPLICATOR) WBC 8.2 3.8 - 9.9 K/cumm Comment:Testing performed by : [address], [address] Hgb 15.1 11.9 - 15.5 g/dL [facility] (CR) Comment:Testing performed by : [address], [address] Hct 47.9(H) 35.6 - 45.5 % [facility] (CR) Comment:Testing performed by : [address], [address] Plt 227 150 - 400 K/cumm [facility] (CR) Comment:Testing performed by : [address], [address] MPV 10.0 9.1 - 12.3 fL [facility] (CR) Comment:Testing performed by : [address], [address] RBC 5.55(H) 3.90 - 5.20 M/cumm [facility] (CR) Comment:Testing performed by : [address], [address] MCV 86.3 81.3 - 96.4 fL [facility] (CR) Comment:Testing performed by : [facility], [address] [place] [address], [address] MCH 27.2 27.1 - 33.3 pg [facility] (CR) Comment:Testing performed by : [facility], [address] [place] [address], [address] MCHC 31.5(L) 32.3 - 35.7 g/dL [facility] (CR) Comment:Testing performed by : [facility], [address] [place] [address], [address] RDW CV 15.6(H) 11.1 - 14.9 % [facility] (CR) Comment:Testing performed by : [address], [address] RDW SD 49.2(H) 35.7 - 48.1 fL [facility] (CR) Comment:Testing performed by : [address], [address] NRBC abs 0.00 0.00 - 0.01 K/cumm [facility] (CR) Comment:Testing performed by : [address], [address] Blood 05/11/2024 10:0 7 AM PLASTER APPLICATOR 05/11/2024 10:07 AM PLASTER APPLICATOR Jarred Koch MD LAB BLOOD ORDERABLES Final R esult [facility] ([place]) 1 [facility] Department [place] [address] * (ABNORMAL) Urinalysis, microscopic only (05/11/2024 10:07 AM PLASTER APPLICATOR) WBC, ur 0-5 0 - 5 Comment:Testing performed by : [address], [address] RBC, ur 0-2 0 - 2 /HPF [facility] (CR) Comment:Testing performed by : [address], [address] Epithelial cells, squamous, ur 11-20(A) 0 - 5 /HPF [facility] (CR) Comment:Testing performed by : [facility], [address] [place] [address]., [address] Mucous, ur Present(A) [facility] Hopkins (CR) Comment:Testing performed by : [address], [address] Culture Reflex Comment Reflex conditions for urine culture (WBC >10) not met. [facility] (CR) Comment:Testing performed by : [facility], [address] [place] [address], [address] Urine, clean voided 05/11/2024 10:07 AM PLASTER APPLICATOR 05/11/2024 12:24 PM PLASTER APPLICATOR Jarred Koch MD LAB URINE ORDERABLES Final R esult Performing Organization Address [facility] Co de Phone Number [facility] ([place]) 1 [facility] [employer] [place] [address] * (ABNORMAL) Hemoglobin A1c (05/11/2024 10:07 AM PLASTER APPLICATOR) Hgb A1C 6.3(H) 4.0 - 5.6 % Comment:Testing performed by : [address], [address] Estimated Average Glucose 134 mg/dL [facility] (CR) Comment: The ADA recommends reporting an estimated Average Glucose (eAG) with all Hemoglobin A1c results using the equation derived from a study of 507 normal and diabetic adults. Minority populations were underrepresented and children were not included. (Diabetes Care 31:3079-7281, 2008). The eAG is not equivalent to a fasting glucose. Testing performed by: [facility], [address] [place] [address], [address] Blood 05/11/2024 10:0 7 AM PLASTER APPLICATOR 05/11/2024 10:07 AM PLASTER APPLICATOR Jarred Koch MD LAB BLOOD ORDERABLES Final R esult Performing Organization Address [facility] Co de Phone Number [facility] ([place]) [address] Department [place] [address] * (ABNORMAL) Basic metabolic panel (05/11/2024 10:07 AM PLASTER APPLICATOR) Sodium 142 135 - 145 mmol/L Comment:Testing performed by : [facility], [address] [place] [address]., [address] Potassium, pl 3.7 3.3 - 4.9 mmol/L [facility] (CR) Comment:Testing performed by : [facility], [address] [place] [address]., [address] Chloride 101 97 - 110 mmol/L [facility] (CR) Comment:Testing performed by : [facility], [address] [place] [address], [address] CO2 27 22 - 32 mmol/L [facility] (CR) Comment:Testing performed by : [address], [address] Anion gap 14 2 - 15 mmol/L [facility] (CR) Comment:Testing performed by : [address], [address] BUN 14 6 - 25 mg/dL [facility] (CR) Comment:Testing performed by : [address], [address] Creatinine 0.51(L) 0.60 - 1.10 mg/dL [facility] (CR) Comment:Testing performed by : [address] [address] Glucose 130 70 - 199 mg/dL [facility] (CR) Comment: Interpretive Data Fasting glucose [...] was last revised 2022. Testing performed by: [address], [address] Calcium 9.2 8.5 - 10.3 mg/dL KARYNJOHAN JARRETT (CR) Comment:Testing performed by : [facility], [address] [facility], [place]., [address] Blood 05/11/2024 10:0 7 AM PLASTER APPLICATOR 05/11/2024 10:07 AM PLASTER APPLICATOR Jarred Koch MD LAB BLOOD ORDERABLES Final R esult SUJATA JARRETT (WHITETHORN) 1 [facility] Department [place] [address] * Screening Mammogram Bilateral W Andrew (01/16/2024 [...] bilaterally, but this is unchanged from 2020. 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 MF: SHERYL Report ID: [id number] Reading Location: [id number] Charlie Mtz MD IMG DXA PROCEDURES Final Result * CT Lung [...] Lux Sin M.D. AM: AM Report ID: [id number] Reading Location: [id number] Procedure Note Lux Sin MD - 07/14/2023 [...] Lux Sin M.D. AM: AM Report ID: [id number] Reading Location: [id number] us Charlie Mtz MD IM CT PROCEDURES Final R esult * COLONOSCOPY (05/22/2019 10:39 AM PLASTER APPLICATOR) Anatomical Region Laterality Modality Other Narrative Procedure Note Marlon Cronin MD - 05/22/2019 10:39 AM CST [facility] Patient Name: Brittanie Immanuel Procedure Date: 05/22/2019 10:39 AM Date of : 1955 Admit Type: Outpatient Age: 63 Gender: Female Attending MD: Marlon Cronin M.D. Room: [facility] ENDOSCOPY ROOM 2 Note Status: Finalized Patient [...] scope was passed under direct vision.The Colonoscope [id number] was introducedthrough the anus and advanced to [...] malignant neoplasm of colon CPT copyright 2017 [employer]. All rights reserved. The codes documented in this report are preliminary and upon jigger operator reviewmay be revised to meet current compliance requirements. Recognized by the [employer] for promoting quality in endoscopy us Marlon Cronin MD ENDOSCOPY PROCEDURES Final Re sult * Hepatitis C antibody (05/18/2019 10:48 AM PLASTER APPLICATOR) Hep C Ab Negative Negative SUJATA FARIAS (CR) Comment:Testing performed by : [facility], [address] [place] [address], [place]., [address] Blood specimen (specimen) 05/18/2019 10:48 AM PLASTER APPLICATOR 05/18/2019 1:38 PM PLASTER APPLICATOR us Sydney Tompkins NP LAB MICROBIOLOGY - GENERAL O RDERABLES Final Result SUJATA JARRETT (WHITETHORN) 1 [facility] Department [place] [address] from Last 3 Months or Most Recently Relevant to Health Maintenance Insurance MEDICARE [facility] [place] [address] MEDICARE [facility] Member Subscriber Plan / Payer (Ef fective 2010-Present) Name:ImmanuelBrittanie Relation to Subscriber:Self Name:ImmanuelBrittanie vela Payer ID:[id number] Group ID:Not on file Type:OTHER GOVERNMENT Address: [facility] OFFICE [facility] [address] [place] [id number] [facility] Advance Directives For more information, please contact: [phone] * Full Code (Latest Code Status on File) Date Activated Date Inactivated Comments 03/13/2023 4:52 AM 03/16/2023 6:28 PM * Full Code Date Activated Date Inactivated Comments 07/01/2020 12:51 PM 07/01/2020 6:46 PM * Full Code Date Activated Date Inactivated Comments 05/22/2019 10:14 AM 05/22/2019 4:30 PM * Full Code Date Activated Date Inactivated Comments 05/22/2019 10:14 AM 05/22/2019 10:14 AM Care Teams Worm Sorter Relationship Specialty Start Date End Date Charlie Mtz MD [address] [place] [address] PCP - General Family Medicine 05/28/21 Sintia Santoyo NP Nurse Practitioner Obstetrics and Gynecology 07/13/18 Davey Myles NP Nurse Practitioner Family Practice 10/16/20
--- OUTSIDE RECORDS SUMMARY | 2024-07-10 10:51 | XMS_ITS | Encounter Summary ---
Author Organization [facility] Healthcare Address [address] [place] [address] Care Team Providers Care Eligibility Clerk Name Role Phone Sydney Tompkins NP Primary Care Provider [phone] Sintia Santoyo NP Unavailable [phone] Marlon Cronin MD Unavailable [phone] Davey Myles NP Unavailable [phone] Charlie Mtz MD Primary Care Provider [phone] Denita Jones RN Unavailable [phone] Encounter Details Date Type Department Care Team (Late st Contact Info) Description 03/14/2020 Telephone [facility] [address] [place] [id number] Marilin Galan RT Social History Tobacco Use Types Packs/Day Years Used Date Smoking Tobacco: Every Day Cigarettes 0.5 28 Smokeless Tobacco: Former Alcohol Use Standard Drinks/Week Comments No 0 (1 standard drink = 0.6 oz pur e alcohol) PHQ-2 Answer Date Recorded PHQ-2 Total Score (If total score is 3 or more points, staff should administer the PHQ-9) 0 02/22/2020 Comments No Sex and Gender Information Value Date Recorded Sex Assigned at Not on file Legal Sex Female 3:09 PM PUNCH MACHINE HAND Gender Identity Not on file Sexual Orientation Not on file Occupation Industry Job Start Date Job End Date RETIRED Not on file Not on file Not on file documented as of this encounter Plan of Treatment Not on file documented as of this encounter Visit Diagnoses Not on filedocumented in this encounter Additional Health Concerns Infection Onset Date Last Indicated Resolved Time COVID: Suspected 04/28/2020 04/28/2020 04/28/2020 11:48 PM PUNCH MACHINE HAND Respiratory Infection (BRITTNY), contact + droplet Comment:Automatically added due to negative COVID-19 result. 04/28/2020 04/28/2020 05/12/2020 3:0 7 AM PUNCH MACHINE HAND Exposure, COVID-19 Comment:Added automatically based on COVID19 lab answers indicating exposure risk 03/10/2021 03/10/2021 03/25/2021 3:[address] COVID: Suspected 03/10/2021 03/10/2021 03/10/2021 4:53 PM PUNCH MACHINE HAND COVID: Suspected 03/26/2021 03/26/2021 03/26/2021 10:27 PM PUNCH MACHINE HAND COVID: Suspected 10/27/2021 10/27/2021 10/27/2021 11:28 AM CDT COVID19 10/27/2021 10/27/2021 11/06/2021 3:05 AM CDT COVID: Recovered Comment:Added based on recent COVID infection. 11/06/2021 12/03/2021 03/06/2022 3:[address] COVID: Suspected 04/30/2022 04/30/2022 04/30/2022 2:24 PM PUNCH MACHINE HAND COVID: Suspected 03/08/2023 03/08/2023 03/08/2023 11:30 AM PUNCH MACHINE HAND COVID: Suspected 03/12/2023 03/13/2023 03/13/2023 12:59 AM PUNCH MACHINE HAND documented as of this encounter Care Teams Eligibility Clerk Relationship Specialty Start Date End Date Sydney Tompkins NP PCP - General Family Medicine 07/11/18 05/27/21 [place] [address] PCP - General Family Medicine 05/28/21 Sintia Santoyo NP Nurse Practitioner Obstetrics and Gynecology 07/13/18 Marlon Cronin MD Consulting Physician Gastroenterology 07/13/18 10/15/20 Davey Myles NP Nurse Practitioner Family Practice 10/16/20 Denita Jones, RN [address] [place] [address] [address] [place] [address] [employer] 03/17/23 04/19/23 documented as of this encounter
--- OUTSIDE RECORDS SUMMARY | 2024-07-10 10:51 | XMS_ITS | Encounter Summary ---
Author Organization [facility] Healthcare Address [address] [place] [address] Care Team Providers Care Director Skills Name Role Phone Sintia Santoyo CARROT HARVESTER Unavailable [phone] Davey Myles CARROT HARVESTER Unavailable [phone] Charlie Mtz MD Primary Care Provider [phone] Reason for Visit * Reason Onset Date Comments Medical Question/Miscellaneous 07/09/2024 Encounter Details Date Type Department Care Team (Late st Contact Info) Description 07/09/2024 Telephone [facility] [address] [place] [address] Charlie Mtz MD [address] [place] [id number] Medical Question/Miscellaneous Social History Tobacco Use Types Packs/Day Years Used Date Smoking Tobacco: Former Cigarettes 0.8 28 0 06/25/1993 - 06/25/2021 Smokeless Tobacco: Former Quit: 06/25/2021 Alcohol Use Standard Drinks/Week Comments No 0 (1 standard drink = 0.6 oz pur e alcohol) [facility] Utilities Answer Date Recorded In the past 12 months has [employer], gas, oil, or water [employer] threatened to shut off services in your [...] often do you attend chur ch or pentecostalism services? More than 4 times per year 03/18/2023 Do you belong to any clubs o r organizations such as amish groups, unions, fraternal or athletic groups, or [...] place to sleep or slept in a retirement (including now)? 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 Requesting EKG tracing from April faxed to them at [phone]. Sent as requested. * Telephone Encounter - Stephany Irwin - 07/09/2024 3:04 PM CDT Medical Question/Miscellaneous Caller???s Concern: Tasia calling for EKG to be sent over to [facility] for Patient's appointment tomorrow 07/10/2024 at 10 AM. IMPACT HAMMER OPERATOR transferred to the practice. Does message need to be routed? Yes-Action Needed Reason for Warm Transfer: Provider to Provider Calls Practice Accepted the Warm Transfer? Yes Additional Comments If YES above, and no barriers. documented in this encounter Plan of Treatment [...] on filedocumented in this encounter Care Teams Director Skills Relationship Specialty Start Date End Date Charlie Mtz MD [address] [place] [address] PCP - General Family Medicine 05/28/21 Sintia Santoyo NP Nurse Practitioner Obstetrics and Gynecology 07/13/18 Davey Myles NP Nurse Practitioner Family Practice 10/16/20 documented as of this encounter
[2024-07-10 11:42] LABS: Albumin Level 4.8 g/dL (3.5-5.1)
[2024-07-10 11:45] LABS: Partial Thromboplastin Time 24.7 Seconds (22.3-36.8); Prothrombin Time 13.6 Seconds (11.1-14.7)
[2024-07-10 11:52] LABS: Urine Cotinine NEGATIVE
[2024-07-10 12:47] LABS: MRSA (PCR) NOT DETECTED (NOT DETECTE)
== END 2024-07-10 09:47 | disposition home or self-care (01) ==
LOC: ANHSURGERY 09:55
PROVIDERS: PCP Hospitalist; Visit Provider Orthopaedic Surgery
DX: M17.11 Unilateral primary osteoarthritis, right knee (principal); Z01.818 Encounter for other preprocedural examination
CPT/HCPCS: 80307; 82040; 85610; 85730; 87641

== ENCOUNTER 2024-07-13 10:31 | Outpatient (CLI) | payer MEDICARE, OTHER, SELFPAY ==
--- OUTSIDE RECORDS SUMMARY | 2024-07-13 11:03 | XMS_ITS | Clinical Summary ---
Author Organization [facility] Address [address] [place] [address] Phone Care Team Providers Care Youth Development Professional Name Role Phone Unavailable Unavailable Unavailable Reason for Visit and Chief Complaint [Patient Encounter] Problems Includes: Problems addressed during this encounter and other active Problems All Visits Onset Date Resolved Date Provider Condition S tatus Chronic Obstructive Pulmonary Disease 11/17/2018 ROWAN INGRAM NP-BC Active Last Documented On 9 2:25PM ; [facility] Previous Colposcopy 01/15/2013 ROWAN INGRAM RUBY ON RAILS DEVELOPER-BC Active Last Documented On 3 12:53PM ; [facility] Note: - FAIZAN! HYPERLIPIDEMIA NEC/NOS 01/20/2012 CE BIRCH MD Active Last Documented On 2 3:01PM ; [facility] HYPERTENSION NOS 12/09/2011 CE BIRCH MD Ac tive Last Documented On 2 10:05AM ; [facility] Plan of Treatment No [...] On 9 2:24PM By DESHAWN DOYLE ; [facility] Tribenzor 40-10-25MG Oral Tablet 11/17/2018 Provider : Diagnosis: Last Documented On 9 2:24PM By DESHAWN DOYLE ; [facility] Omeprazole 20MG Oral Tablet Delayed Release 2017 Provider: Diagnosis: Last Documented On 8 12:41PM By DONALDO DOYLE ; [facility] Bystolic 20MG Oral Tablet 11/16/2017 Provider: Diagnosis: Last Documented On 8 12:41PM By DONALDO DOYLE ; [facility] Fetzima 80MG Oral Capsule Extended Release 24 Hour 11/2017 Provider: Diagnosis: Last Documented On 8 12:42PM By DONALDO DOYLE ; [facility] Biotin 5000MCG Oral Capsule 11/16/2017 Provider: Diagnosis: Last Documented On 8 12:42PM By DONALDO DOYLE ; [facility] Fish Oil 1000MG Oral Capsule 11/16/2017 Provider : Diagnosis: Last Documented On 8 12:42PM By DONALDO DOYLE ; [facility] Icaoniixue-Jwpvnoypqx-VMKV 40-10-25MG Oral Tablet 11/2017 Provider: Diagnosis: Last Documented On 8 12:43PM By DONALDO DOYLE ; [facility] Welchol 625 MG OR TABS 01/15/2013 Provider: Diagnosis: Last Documented On 01/15/2013 1:05PM By DONALDO DOYLE ; [facility] Bystolic 5 MG OR TABS 12/09/2011 Provider: Diagnosis: Last Documented On 12/09/2011 10:03AM By AV CORCORAN ; [facility] Spiriva HandiHaler 18 MCG IN CAPS 12/09/2011 Provide r: Diagnosis: Last Documented On 12/09/2011 10:04AM By AV CORCORAN ; [facility] Medications Administered Includes: Administered [...] Active Last Documented On 9 2:23PM ; [facility] Codeine Allergy 06/09/2009 Active Last Documented On 9 2:23PM ; [facility] Encounters Encounter Provider Location Date Check-In Time Check- Out Time Diagnosis [Patient Encounter] ROWAN INGRAM [facility] SQL SSRS DEVELOPER 8 1:43PM 11:59PM Clinical Notes Includes: Clinical Notes from this encounter No Clinical Notes Recorded
--- OUTSIDE RECORDS SUMMARY | 2024-07-13 11:03 | XMS_ITS | Clinical Summary ---
Author Organization [facility] Address [address] [place] [address] Phone Care Team Providers Care Spray Painter Helper Name Role Phone Unavailable Unavailable Unavailable Reason for Visit and Chief Complaint gynecologic annual exam - The Chief Complaint is: Annual Problems Includes: Problems addressed during this encounter and other active Problems All Visits Onset Date Resolved Date Provider Condition S tatus Chronic Obstructive Pulmonary Disease 11/17/2018 ROWAN INGRAM NP-BC Active Last Documented On 9 2:25PM ; [facility] Previous Colposcopy 01/15/2013 ROWAN INGRAM RESOURCE CONSERVATIONIST-BC Active Last Documented On 3 12:53PM ; [facility] Note: - FAIZAN! HYPERLIPIDEMIA NEC/NOS 01/20/2012 CE BIRCH MD Active Last Documented On 2 3:01PM ; [facility] HYPERTENSION NOS 12/09/2011 CE BIRCH MD Ac tive Last Documented On 2 10:05AM ; [facility] Plan of Treatment - Follow-up visit 1 year or as needed - Last Documented On 11/16/2017 1:10PM ; [facility] - Clinical summary provided to patient - Last Documented On 11/16/2017 1:10PM ; [facility] Instructions to patient Instructions for patient : B reast Self Exam discussed Last Documented On 8 12:16PM ; [facility] Lose weight Last Documented On 8 12:17PM ; [facility] Colonoscopy Handout given to patient Last Documented On 8 12:17PM ; [facility] Education and Decision Aids were provided during visit for: Patient Education: Daily rashi cium and vitamin D Last Documented On 8 12:16PM ; [facility] Patient Education: weight be aring exercise Last Documented On 8 12:16PM ; [facility] Smoking cessation advised Last Documented On 8 12:47PM ; [facility] Assessments Includes: Assessments from this encounter Findings - NORMAL FEMALE EXAM - Last Documented On 11/16/2017 1:10PM ; [facility] - Screening Malig. Neoplasm Rectum - Last Documented On 11/16/2017 1:10PM ; [facility] Instructions Includes: Instructions from this encounter Instructions to patient Instructions for patient : B reast Self Exam discussed Last Documented On 8 12:16PM ; [facility] Lose weight Last Documented On 8 12:17PM ; [facility] Colonoscopy Handout given to patient Last Documented On 8 12:17PM ; [facility] Education and Decision Aids were provided during visit for: Patient Education: Daily rashi cium and vitamin D Last Documented On 8 12:16PM ; [facility] Patient Education: weight be aring exercise Last Documented On 8 12:16PM ; [facility] Smoking cessation advised Last Documented On 8 12:47PM ; [facility] Medical Equipment - Implanted Devices Includes: Current Devices No Medical Equipment Recorded Medications Includes: Medications discussed during this encounter and other current Medications Discontinued / Stopped on this date on 12/09/2011 Tribenzor 40-10-25 MG OR TABS Provider: Diagnosis: Last Documented On 8 12:42PM By DONALDO DOYLE ; [facility] Current Medications (continue as prescribed) Co Q10 100MG Oral Capsule 11/17/2018 Provider: Diagnosis: Last Documented On 9 2:24PM By DESHAWN DOYLE ; [facility] Tribenzor 40-10-25MG Oral Tablet 11/17/2018 Provider : Diagnosis: Last Documented On 9 2:24PM By DESHAWN DOYLE ; [facility] Omeprazole 20MG Oral Tablet Delayed Release 2017 Provider: Diagnosis: Last Documented On 8 12:41PM By DONALDO DOYLE ; [facility] Bystolic 20MG Oral Tablet 11/16/2017 Provider: Diagnosis: Last Documented On 8 12:41PM By DONALDO DOYLE ; [facility] Fetzima 80MG Oral Capsule Extended Release 24 Hour 11/2017 Provider: Diagnosis: Last Documented On 8 12:42PM By DONALDO DOYLE ; [facility] Biotin 5000MCG Oral Capsule 11/16/2017 Provider: Diagnosis: Last Documented On 8 12:42PM By DONALDO DOYLE ; [facility] Fish Oil 1000MG Oral Capsule 11/16/2017 Provider : Diagnosis: Last Documented On 8 12:42PM By DONALDO DOYLE ; [facility] Pwjjejzwys-Jegorekvch-PUDH 40-10-25MG Oral Tablet 11/2017 Provider: Diagnosis: Last Documented On 8 12:43PM By DONALDO DOYLE ; [facility] Welchol 625 MG OR TABS 01/15/2013 Provider: Diagnosis: Last Documented On 01/15/2013 1:05PM By DONALDO DOYLE ; [facility] Bystolic 5 MG OR TABS 12/09/2011 Provider: Diagnosis: Last Documented On 12/09/2011 10:03AM By AV CORCORAN ; [facility] Spiriva HandiHaler 18 MCG IN CAPS 12/09/2011 Provide r: Diagnosis: Last Documented On 12/09/2011 10:04AM By AV CORCORAN ; [facility] Past Medications on file Keflex 500 MG OR CAPS 01/30/2008 - 02/06/2008 Provider : Diagnosis: Last Documented On 06/09/2009 12:22PM By VIRIDIANA PINTO ; [facility] Medications Administered Includes: Administered Medications from this encounter No Administered Medications Recorded Vital Signs Includes: Vital Signs from this encounter Vital Name 11/16/2017 12:51P Blood Pressure Sitting L 148/70 BP Cuff Size Large Height (in) 62 Weight (lb) 200 Body Mass Index (kg/m2) 36.6 Body Surface Area (m2) 1.9 Last Documented: On 11/16/2017 12:54P M ; [facility] Results Includes: Results discussed during this encounter No Results Recorded For Specified Dates History of Present Illness Includes: History of Present Illness from this encounter HPI PREM GAMBINO is a 62 year old female. - Medication list reviewed - PRIMARY CARE PROVIDER : Dr Turcios Social History Description Last Updated Alcohol use 11/16/2017 Last Documented On 8 1:10PM ; [facility] In monogamous relationship 11/16/2017 Last Documented On 8 1:10PM ; [facility] Non-smoker 11/16/2017 Last Documented On 8 1:10PM ; [facility] Not using drugs 11/16/2017 Last Documented On 8 1:10PM ; [facility] Sexually active with 1 partners in the l ast year 11/16/2017 Last Documented On 8 1:10PM ; [facility] Smoking status : Current everyday smoker 11/16/2017 Last Documented On 8 1:10PM ; [facility] Yarsanism affiliation YARSANISM 8 Last Documented On 8 1:10PM ; [facility] Procedures and Surgical History Includes: Procedures from this encounter Procedures Code Diagnosis Performing Provider Service L ocation Service Date low fat diet Last Documented On 8 12:17PM ; [facility] fecal occult blood test was negative 13829 Last Documented On 8 12:16PM ; [facility] normal history of Pap smear of cervix Last Documented On 8 12:56PM ; [facility] Cervical Pap Smear performed Q0091 Last Documented On 8 12:17PM ; [facility] Surgical History Last Updated Surgical / procedural histor y orthroscopic left knee surg ~d&c ~bile duct 11/16/2017 Last Documented On 8 1:10PM ; [facility] Dilation + Curettage 11/16/2017 Last Documented On 8 1:10PM ; [facility] Medical History Includes: Medical History addressed during this encounter Description Last Updated History of complete colonoscopy [address] chaney repeat in 10 years 11/16/2017 Last Documented On 8 1:10PM ; [facility] Result: normal @cne 11/16/2017 Last Documented On 8 1:10PM ; [facility] History of chronic obstructive pulmonary disease 11/16/2017 Last Documented On 8 1:10PM ; [facility] section 11/16/2017 Last Documented On 8 1:10PM ; [facility] Sexually active 11/16/2017 Last Documented On 8 1:10PM ; [facility] Vaginal delivery 11/16/2017 Last Documented On 8 1:10PM ; [facility] History of Pap smear done 01/15/201311/2017 Last Documented On 8 1:10PM ; [facility] History of screening mammogram was perfo rmed 09/201711/16/2017 Last Documented On 8 1:10PM ; [facility] Result: normal 11/16/2017 Last Documented On 8 1:10PM ; [facility] FREQUENT UTI'S ~D & C 11/16/2017 Last Documented On 8 1:10PM ; [facility] 3 11/16/2017 Last Documented On 8 1:10PM ; [facility] History of benign essential hypertension 11/16/2017 Last Documented On 8 1:10PM ; [facility] History of hyperlipidemia 11/16/2017 Last Documented On 8 1:10PM ; [facility] History of menopause lmp more than 5 yrs ago 11/16/2017 Last Documented On 8 1:10PM ; [facility] LMP: 2003 11/16/2017 Last Documented On 8 1:10PM ; [facility] Para 3 11/16/2017 Last Documented On 8 1:10PM ; [facility] Family History Includes: Family History addressed during this encounter Description Last Updated Maternal history of diabetes mellitus si ster, mother 11/16/2017 Last Documented On 8 1:10PM ; [facility] Maternal history of hypertension mother 11/16/2017 Last Documented On 8 1:10PM ; [facility] Paternal history of family history of he art disease father 11/16/2017 Last Documented On 8 1:10PM ; [facility] Review of Systems Includes: Review [...] Active Last Documented On 9 2:23PM ; [facility] Codeine Allergy 06/09/2009 Active Last Documented On 9 2:23PM ; [facility] Encounters Encounter Provider Location Date Check-In Time Check-Out Time Diagnosis NEW CIGARETTE SELLER EXAM ROWAN INGRAM [facility] SUPERVISOR DATA PROCESSING 11/17/19 18 11:59AM 1:09PM Screening Malig. Neoplasm Rectum,Normal Female Exam Clinical Notes Includes: Clinical Notes from this encounter No Clinical Notes Recorded
--- OUTSIDE RECORDS SUMMARY | 2024-07-13 11:03 | XMS_ITS | Clinical Summary ---
Author Organization [facility] Address [address] [place] [address] Phone Care Team Providers Care Independent Trader Name Role Phone Unavailable Unavailable Unavailable Reason for Visit and Chief Complaint gynecologic annual exam - The Chief Complaint is: Annual Problems Includes: Problems addressed during this encounter and other active Problems Current Visit Onset Date Resolved Date Provider Conditio n Status Chronic Obstructive Pulmonary Disease 11/17/2018 ROWAN IGNRAM NP-BC Active Last Documented On 9 2:25PM ; [facility] Past Visits Onset Date Resolved Date Provider Condition Status Previous Colposcopy 01/15/2013 ROWAN INGRAM NP-BC Active Last Documented On 01/15/2013 12:53PM ; [facility] Note: - FAIZAN! HYPERLIPIDEMIA NEC/NOS 01/20/2012 CE BIRCH MD Active Last Documented On 2 3:01PM ; [facility] HYPERTENSION NOS 12/09/2011 CE BIRCH MD Ac tive Last Documented On 2 10:05AM ; [facility] Plan of Treatment - Clinical summary provided to patient - Last Documented On 11/17/2018 2:42PM ; [facility] Instructions to patient Instructions for patient : B reast Self Exam discussed Last Documented On 9 2:01PM ; [facility] Lose weight Last Documented On 9 2:02PM ; [facility] Colonoscopy Handout given to patient Last Documented On 9 2:02PM ; [facility] Education and Decision Aids were provided during visit for: Patient Education: Daily rashi cium and vitamin D Last Documented On 9 2:01PM ; [facility] Patient Education: weight be aring exercise Last Documented On 9 2:01PM ; [facility] Smoking cessation advised Last Documented On 9 2:02PM ; [facility] Assessments Includes: Assessments from this encounter Findings - NORMAL FEMALE EXAM - Last Documented On 11/17/2018 2:42PM ; [facility] - Screening Malig. Neoplasm Rectum - Last Documented On 11/17/2018 2:42PM ; [facility] Instructions Includes: Instructions from this encounter Instructions to patient Instructions for patient : B reast Self Exam discussed Last Documented On 9 2:01PM ; [facility] Lose weight Last Documented On 9 2:02PM ; [facility] Colonoscopy Handout given to patient Last Documented On 9 2:02PM ; [facility] Education and Decision Aids were provided during visit for: Patient Education: Daily rashi cium and vitamin D Last Documented On 9 2:01PM ; [facility] Patient Education: weight be aring exercise Last Documented On 9 2:01PM ; [facility] Smoking cessation advised Last Documented On 9 2:02PM ; [facility] Medical Equipment - Implanted Devices Includes: Current Devices No Medical Equipment Recorded Medications Includes: Medications discussed during this encounter and other current Medications Discontinued / Stopped on this date on 11/16/2017 Ergocalciferol [id number] Oral Capsule Pro vider: Diagnosis: Last Documented On 9 2:24PM By DESHAWN DOYLE ; [facility] Current Medications (continue as prescribed) Co Q10 100MG Oral Capsule 11/17/2018 Provider: Diagnosis: Last Documented On 9 2:24PM By DESHAWN DOYLE ; [facility] Tribenzor 40-10-25MG Oral Tablet 11/17/2018 Provider : Diagnosis: Last Documented On 9 2:24PM By DESHAWN DOYLE ; [facility] Omeprazole 20MG Oral Tablet Delayed Release 2017 Provider: Diagnosis: Last Documented On 8 12:41PM By DONALDO DOYLE ; [facility] Bystolic 20MG Oral Tablet 11/16/2017 Provider: Diagnosis: Last Documented On 8 12:41PM By DONALDO DOYLE ; [facility] Fetzima 80MG Oral Capsule Extended Release 24 Hour 11/2017 Provider: Diagnosis: Last Documented On 8 12:42PM By DONALDO DOYLE ; [facility] Biotin 5000MCG Oral Capsule 11/16/2017 Provider: Diagnosis: Last Documented On 8 12:42PM By DONALDO DOYLE ; [facility] Fish Oil 1000MG Oral Capsule 11/16/2017 Provider : Diagnosis: Last Documented On 8 12:42PM By DONALDO DOYLE ; [facility] Zltbayfpmj-Swyuqhrptz-KMKI 40-10-25MG Oral Tablet 11/2017 Provider: Diagnosis: Last Documented On 8 12:43PM By DONALDO DOYLE ; [facility] Welchol 625 MG OR TABS 01/15/2013 Provider: Diagnosis: Last Documented On 01/15/2013 1:05PM By DONALDO DOYLE ; [facility] Bystolic 5 MG OR TABS 12/09/2011 Provider: Diagnosis: Last Documented On 12/09/2011 10:03AM By AV CORCORAN ; [facility] Spiriva HandiHaler 18 MCG IN CAPS 12/09/2011 Provide r: Diagnosis: Last Documented On 12/09/2011 10:04AM By AV CORCORAN ; [facility] Past Medications on file Keflex 500 MG OR CAPS 01/30/2008 - 02/06/2008 Provider : Diagnosis: Last Documented On 06/09/2009 12:22PM By VIRIDIANA PINTO ; [facility] Medications Administered Includes: Administered Medications from this encounter No Administered Medications Recorded Vital Signs Includes: Vital Signs from this encounter Vital Name 11/17/2018 02:14P Blood Pressure Sitting L 122/72 BP Cuff Size Large Height (in) 62 Weight (lb) 192 Body Mass Index (kg/m2) 35.1 Body Surface Area (m2) 1.9 Last Documented: On 11/17/2018 2:19PM ; [facility] Results Includes: Results discussed during this encounter No Results Recorded For Specified Dates History of Present Illness Includes: History of Present Illness from this encounter PEDRITO GAMBINO is a 63 year old female. - Medication list reviewed - PRIMARY CARE PROVIDER : Dr Tompkins - No vertigo Social History Description Last Updated Quaker affiliation RESTORATIONISM 9 Last Documented On 9 2:11PM ; [facility] Alcohol use 11/17/2018 Last Documented On 9 2:42PM ; [facility] Cigarette smoking 11/17/2018 Last Documented On 9 2:42PM ; [facility] In monogamous relationship 11/17/2018 Last Documented On 9 2:42PM ; [facility] Not using drugs 11/17/2018 Last Documented On 9 2:42PM ; [facility] Sexually active with 1 partners in the l ast year 11/17/2018 Last Documented On 9 2:42PM ; [facility] Smoking status : Current everyday smoker 11/17/2018 Last Documented On 9 2:42PM ; [facility] Social history unchanged 11/17/2018 Last Documented On 9 2:42PM ; [facility] Procedures and Surgical History Includes: Procedures from this encounter Procedures Code Diagnosis Performing Provider Service L ocation Service Date low fat diet Last Documented On 9 2:02PM ; [facility] Preventive Medicine Services (medicare pt) G0101 Last Documented On 9 2:17PM ; [facility] Pap smear done 93086 Last Documented On 9 2:02PM ; [facility] fecal occult blood test was negative 38689 Last Documented On 9 2:01PM ; [facility] Cervical Pap Smear performed Q0091 Last Documented On 9 2:02PM ; [facility] Surgical History Last Updated Dilation + Curettage 02/23/2019 Last Documented On 9 2:11PM ; [facility] Surgical / procedural history orthroscop ic left knee surg ~d&c ~bile duct 02/23/2019 Last Documented On 9 2:11PM ; [facility] Medical History Includes: Medical History addressed during this encounter Description Last Updated FREQUENT UTI'S ~D & C 02/23/2019 Last Documented On 9 2:11PM ; [facility] 3 02/23/2019 Last Documented On 9 2:11PM ; [facility] History of benign essential hypertension 02/23/2019 Last Documented On 9 2:11PM ; [facility] History of chronic obstructive pulmonary disease 02/23/2019 Last Documented On 9 2:11PM ; [facility] History of hyperlipidemia 02/23/2019 Last Documented On 9 2:11PM ; [facility] History of menopause lmp more than 5 yrs ago 02/23/2019 Last Documented On 9 2:11PM ; [facility] LMP: 2003 02/23/2019 Last Documented On 9 2:11PM ; [facility] Para 3 02/23/2019 Last Documented On 9 2:11PM ; [facility] No recent change in medical history 12/2018 Last Documented On 9 2:42PM ; [facility] Sexually active 11/17/2018 Last Documented On 9 2:42PM ; [facility] History of a DXA of the lateral lumbar s pine was performed 02/12/2013 11/17/2018 Last Documented On 9 2:42PM ; [facility] History of complete colonoscopy 12/2018 Last Documented On 9 2:42PM ; [facility] History of Pap smear done 11/16/201712/2018 Last Documented On 9 2:42PM ; [facility] History of screening mammogram was perfo rmed 08/23/2017 11/17/2018 Last Documented On 9 2:42PM ; [facility] Result: normal 11/17/2018 Last Documented On 9 2:42PM ; [facility] Result: normal 11/17/2018 Last Documented On 9 2:42PM ; [facility] Family History Includes: Family History addressed during this encounter Description Last Updated Family history unchanged 11/17/2018 Last Documented On 9 2:42PM ; [facility] Maternal history of hypertension mother 11/17/2018 Last Documented On 9 2:42PM ; [facility] Paternal grandmother's histo ry of family history of heart disease pgm-swollen heart 11/17/2018 Last Documented On 9 2:42PM ; [facility] Sororal history of diabetes mellitus sis ter. Mother is borderline 11/17/2018 Last Documented On 9 2:42PM ; [facility] Spouse name: Shayne 01/15/2013 Last Documented On 9 2:11PM ; [facility] Family medical history of high blood pre ssure 06/09/2009 Last Documented On 9 2:11PM ; [facility] Review of Systems Includes: Review of Systems [...] Active Last Documented On 9 2:23PM ; [facility] Codeine Allergy 06/09/2009 Active Last Documented On 9 2:23PM ; [facility] Encounters Encounter Provider Location Date Check-In Time Check-Out Time Diagnosis 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 Neoplasm Rectum,Normal Female Exam Clinical Notes Includes: Clinical Notes from this encounter No Clinical Notes Recorded
--- OUTSIDE RECORDS SUMMARY | 2024-07-13 11:03 | XMS_ITS | Encounter Summary ---
Author Organization [facility] Address [address] [place] [address] Care Team Providers Care Furniture Fabricator Name Role Phone Sintia Santoyo ROUTE DELIVERY CLERK Unavailable [phone] Davey Myles ROUTE DELIVERY CLERK Unavailable [phone] Charlie Mtz MD Primary Care Provider [phone] Reason for Visit * Reason Onset Date Comments Medical Question/Miscellaneous 07/09/2024 Encounter Details Date Type Department Care Team (Late st Contact Info) Description 07/09/2024 Telephone Family Physicians [facility] [address] [place] [address] Charlie Mtz MD [address] [place] [id number] Medical Question/Miscellaneous Social History Tobacco Use Types Packs/Day Years Used Date Smoking Tobacco: Former Cigarettes 0.8 28 0 06/25/1993 - 06/25/2021 Smokeless Tobacco: Former Quit: 06/25/2021 Alcohol Use Standard Drinks/Week Comments No 0 (1 standard drink = 0.6 oz pur e alcohol) [facility] Utilities Answer Date Recorded In the past 12 months has [employer], gas, oil, or water [employer] threatened to shut off services in your [...] often do you attend chur ch or adventism services? More than 4 times per year 03/18/2023 Do you belong to any clubs o r organizations such as voodoo groups, unions, fraternal or athletic groups, or [...] points, staff should administer the PHQ-9) 0 07/10/2024 Hunger Vital Sign Answer Date Recorded Within [...] place to sleep or slept in a snf (including now)? 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 Requesting EKG tracing from April faxed to them at [phone]. Sent as requested. * Telephone Encounter - Stephany Irwin - 07/09/2024 3:04 PM CDT Medical Question/Miscellaneous Caller???s Concern: Tasia calling for EKG to be sent over to [facility] for Patient's appointment tomorrow 07/10/2024 at 10 AM. WATER AEROBICS INSTRUCTOR transferred to the practice. Does message need [...] on filedocumented in this encounter Care Teams Furniture Fabricator Relationship Specialty Start Date End Date Charlie Mtz MD [address] [place] [address] PCP - General Family Medicine 05/28/21 Sintia Santoyo NP Nurse Practitioner Obstetrics and Gynecology 07/13/18 Davey Myles NP Nurse Practitioner Family Practice 10/16/20 documented as of this encounter
--- OUTSIDE RECORDS SUMMARY | 2024-07-13 11:03 | XMS_ITS | Clinical Summary ---
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 Name Role Phone Sintia Santoyo [employer]OOKSE[employer]ER BLINDSTITCH Unavailable [phone] Davey Myles [employer]ST[employer] Unavailable [phone] Charlie Mtz MD Primary Care Provider [phone] Allergies Active Allergy Reactions Criticality Noted Date [...] hours PRN, anxiety,Taking 1/2 tab, Reported on 07/10/2024 UNABLE TO FIND [employer] Collagen Active [...] day 180 tablet 2 06/29/19 25 Active ciprofloxacin -dexAMETHason e (CIPRODEX) otic suspensionInd ications:Acut e diffuse otitis externa of left ear Administer 4 drops into the left ear 2 (two) times a day 7.5 mL 07/11/19 25 Active cephalexin (KEFLEX) 500 mg capsuleIndica tions:Acute non-recurrent maxillary sinusitis Take 1 capsule (500 mg total) by mouth 2 (two) times a day for 7 days 14 capsule 07/11/19 25 025 Active potassium chloride ER (KLOR-CON) 10 mEq [...] 38.9 in adult 05/28/2021 Assessment & Plan (07/10/2024 4:14 PM CDT): Encouraged heart healthy diet and lifestyle. Advised 150 min/week of aerobic exercise. Assessment & Plan (08/08/2023 1:15 PM CDT): Stable, patient is making dietary changes, monitoring high-calorie foods; exercising at least 30 minutes today; more active doing yd work, encouraged continue changes, continue monitoring diet to work towards weight loss Assessment & Plan (06/16/2023 1:[address] ENGINEER FREIGHT): Stable, generally well controlled, patient reports no [...] control Assessment & Plan (05/28/2021 1:[address] ENGINEER FREIGHT): Not well controlled, encouraged patient continue to [...] options Assessment & Plan (06/16/2023 1:[address] ENGINEER FREIGHT): Stable, well controlled, improving; patient reports she is more physically active, engaging in social activities, re-engage with denominational Would like to decrease Zoloft given vivid [...] 02/22/2020 Assessment & Plan (02/22/2020 12:[address] ENGINEER FREIGHT): Small patch of atopic dermatitis on mid [...] today. Assessment & Plan (04/17/2019 2:[address] ENGINEER FREIGHT): Repeat CBC in 2 weeks. She was previously taking steroids during her ED visit which may have falsely elevated her white blood count. Vitamin D deficiency 04/17/2019 Assessment & Plan (02/22/2020 9:[address] ENGINEER FREIGHT): Last vitamin d level 12/07/2019 52. Recommend vitamin d3 2000 international units once daily. Assessment & Plan (11/24/2019 3:46 PM CDT): Continue vitamin d2 50,000 International units once weekly and repeat vitamin d level today. Assessment & Plan (04/17/2019 2:[address] ENGINEER FREIGHT): [place] [address] units once weekly. Get vitamin-D level in 2 weeks with labs. High risk of cardiac event 04/17/2019 Assessment & Plan (09/02/2022 4:40 PM CDT): Stable, well controlled; continue pravastatin 40 mg daily; continue ASA 81 mg daily Encourage risk modifications Assessment & Plan (04/17/2019 2:[address] ENGINEER FREIGHT): Patient's ASCVD risk score is 13.3%. I recommended that she be on statin instead of bile acid sequestrant for CV prophylaxis. Start atorvastatin 10 mg daily. Mixed hyperlipidemia 04/17/2019 Assessment & Plan (12/19/2023 10:41 AM CDT): Chronic, stable, well controlled Continue Pravastatin 40 mg daily Assessment & Plan (06/16/2023 1:[address] ENGINEER FREIGHT): Stable, well controlled, lipids in optimal range Continue pravastatin 40 mg daily Assessment & Plan (06/09/2022 4:[address] ENGINEER FREIGHT): Well controlled, lipids at target Continue pravastatin 40 mg nightly Assessment & Plan (12/15/2021 4:59 PM CDT): Stable, well controlled; continue pravastatin 40 mg nightly Assessment & Plan (09/08/2021 2:06 PM CDT): Stable, generally well controlled; continue pravastatin 40 mg nightly Assessment & Plan (07/09/2021 11:01 AM CDT): Stable, well controlled; continue pravastatin 40 mg nightly Assessment & Plan (05/28/2021 12:[address] ENGINEER FREIGHT): Stable, well controlled last lipid panel demonstrated normal total cholesterol, LDL mildly elevated 114; continue to monitor encourage low-fat high-fiber diet Continue pravastatin 40 mg daily Assessment & Plan (11/30/2020 1:37 PM CDT): Lipids are well controlled on pravastatin 40 mg once daily. Assessment & Plan (02/22/2020 12:[address] ENGINEER FREIGHT): Lipids are well controlled on pravastatin 40 mg once daily. Assessment & Plan (11/24/2019 3:43 PM CDT): Continue pravastatin 40 mg daily. Repeat lipid profile today. Recommended Mediterranean diet. Do not think keto diet facilitates a heart healthy diet. Assessment & Plan (09/07/2019 1:31 PM CDT): Continue pravastatin 40 mg daily. Repeat lipid profile in November. Assessment & Plan (04/17/2019 2:[address] ENGINEER FREIGHT): Lipid abnormalities are unchanged. Nutritional counseling was [...] visit; 124/76 Continue Bystolic 20 mg and Dopwlfmvbw-fubdhdlvtu-OTQM 40-10-25 mg daily Assessment & Plan (08/08/2023 1:14 PM CDT): Stable, well controlled; blood pressure goals; continue Bystolic 20 mg daily, kbqwgejdag-txcdbmxiwg-bqfnnrprwfqhygpjrlb 40-10-25 mg Assessment & Plan (06/16/2023 1:[address] ENGINEER FREIGHT): Stable, well controlled, blood pressure at goal; patient reports no chest pain or headaches Continue Bystolic 20 mg daily, mjmxrkgkxm-kzojfkesnm-hgfulayadgensjrcarp 40-10-251 tablet daily; Assessment & Plan (09/02/2022 4:39 PM CDT): Stable, well controlled; blood pressure at target No chest pain or headaches Continue Bystolic 20 mg daily, Tribenzor 40-10-251 tablet daily Assessment & Plan (06/09/2022 4:[address] ENGINEER FREIGHT): Stable, blood pressure at target Continue Tribenzor [...] daily Assessment & Plan (05/28/2021 12:[address] ENGINEER FREIGHT): Stable, generally well controlled; blood pressure mildly [...] appointment. Assessment & Plan (02/22/2020 12:[address] ENGINEER FREIGHT): Hypertension is improved. Continue current treatment regimen. [...] appointment. Assessment & Plan (04/17/2019 2:[address] ENGINEER FREIGHT): Hypertension is improving with treatment. Continue current [...] cessation Assessment & Plan (05/28/2021 1:[address] ENGINEER FREIGHT): Patient continues to smoke, smoking about 1 pack per day Encouraged patient to continue to work towards complete cessation Patient understands importance of smoking, but is not yet gotten to change mind set Assessment & Plan (11/30/2020 1:39 PM CDT): Encourage smoking cessation. Assessment & Plan (02/22/2020 12:[address] ENGINEER FREIGHT): Encourage smoking cessation. Had quit for almost [...] phone. Assessment & Plan (04/17/2019 2:[address] ENGINEER FREIGHT): Encourage smoking cessation. Assessment & Plan (11/15/2018 [...] daily Assessment & Plan (06/09/2022 4:[address] ENGINEER FREIGHT): Stable, last A1c was 6.2; at target [...] daily Assessment & Plan (05/28/2021 12:[address] ENGINEER FREIGHT): Continue to monitor, check A1c to evaluate blood sugars are continue to elevate Continue Tradjenta 5 mg Assessment & Plan (11/30/2020 1:38 PM CDT): A1c today Continue Tradjenta 5 mg once daily. Assessment & Plan (02/22/2020 12:[address] ENGINEER FREIGHT): A1c well controlled at 6.3. Continue Tradjenta 5 mg once daily. Assessment & Plan (11/24/2019 3:45 PM CDT): Patient on Tradjenta 5 mg daily. Continue medication and diet lifestyle modifications. Assessment & Plan (04/17/2019 2:[address] ENGINEER FREIGHT): Patient on Tradjenta 5 mg daily. A1c [...] daily Assessment & Plan (06/09/2022 4:[address] ENGINEER FREIGHT): Stable, improving, quit smoking June 25, 2021; [...] dyspnea, though does report decreased insurance and detention Discussed with patient importance of continued activity and exercise in order to maintain pulmonary help Congratulated patient on smoking cessation will continue Spiriva 18 mcg daily Assessment & Plan (05/28/2021 1:[address] ENGINEER FREIGHT): Stable, generally well controlled; patient has few [...] p.r.n. Assessment & Plan (02/22/2020 12:[address] ENGINEER FREIGHT): COPD is worsening. Discussed monitoring symptoms and [...] steroids. Assessment & Plan (04/17/2019 2:[address] ENGINEER FREIGHT): COPD is improving with treatment. Discussed monitoring [...] levels Assessment & Plan (06/09/2022 4:[address] ENGINEER FREIGHT): Not well controlled, patient reports symptoms beginning worse; patient reports episodes of agoraphobia; worry about leaving house due to concerns for panic attacks Patient every 6 months ago; continues to have grief related to also Refer to [facility] for individual counseling Continue sertraline 100 mg daily; start diazepam 2 mg p.r.n. for panic attacks Assessment & Plan (05/28/2021 1:[address] ENGINEER FREIGHT): Not well controlled, patient has multiple recent [...] 07/12/2018 Assessment & Plan (06/16/2023 1:[address] ENGINEER FREIGHT): Not well controlled, has been having some difficulty; recently neighbor mode throwing up significant amounts of dust which worsened her symptoms Hoarse voice and nasal changes in swelling, especially morning Continue daily antihistamine, continue Flonase 2 sprays 1-2 times daily Assessment & Plan (12/15/2021 5:00 PM CDT): Generally stable; patient reports symptoms, on-off Continue xgzx-hov-oqsvrjx antihistamine; Flonase 2 sprays each nostril daily [...] (08/05/2020): Added automatically from request for surgery [id number] Assessment & Plan (09/09/2020 5:51 PM CDT): [...] up. Assessment & Plan (05/19/2020 4:[address] ENGINEER FREIGHT): Noted from recent urinalysis. Will repeat urinalysis to better evaluate her urine. Upper abdominal pain 05/08/2020 021 Overview (05/08/2020): Added automatically from request for surgery [id number] Assessment & Plan (05/19/2020 4:[address] ENGINEER FREIGHT): Patient has chronic intermittent upper abdominal pain [...] 11/30/2020 Assessment & Plan (02/22/2020 12:[address] ENGINEER FREIGHT): Patient has a new cough over the last 1 week. I recommended testing for COVID - 19 considering her new symptoms. Reviewed self isolation procedures. Referral for testing placed today. Abnormal feces 05/10/2019 12/19/2023 Overview (05/10/2019): Added automatically from request for surgery [id number] Obesity (BMI 30-39.9) 07/12/20182021 Assessment & Plan [...] daily. Assessment & Plan (04/17/2019 2:[address] ENGINEER FREIGHT): Obesity is worsening. Discussed the patient's BMI. [...] again. Assessment & Plan (04/27/2017 10:[address] ENGINEER FREIGHT): Mild pain. Associated with tenderness in the [...] Date Type Department Care Team Description 07/10/2024 4:00 PM CDT Office Visit [facility] [address] [phone] Ellie Wright, YARA Acute non-recurrent maxillary sinusitis (Primary Dx); Acute diffuse otitis externa of left ear; Class 2 severe obesity due to excess calories with serious comorbidity and body mass index (BMI) of 39.0 to 39.9 in adult (HCC) 07/10/2024 Nurse Triage [facility] [address] [phone] Charlie Mtz MD 07/10/2024 Nurse Triage [facility] [address] [phone] Charlie Mtz MD 07/09/2024 Telephone [facility] [address] [phone] Charlie Mtz MD Medical Question/Miscellaneo us 06/21/2024 Telephone [facility] [address] [phone] Charlie Mtz MD Forms Request 06/05/2024 Telephone [facility] [address] [phone] Charlie Mtz MD 05/31/2024 Telephone [facility] [address] [phone] Charlie Mtz MD Medical Records Request 05/31/2024 Telephone [facility] [address] [phone] Charlie Mtz MD Test Results 05/11/2024 1:[address] ENGINEER FREIGHT - 05/11/2024 11:[address] ENGINEER FREIGHT Hospital Encounter [facility] [address] [place] [address] Essential (primary) hypertension Discharge Disposition: Discharge to home or self care 05/11/2024 10:[address] ENGINEER FREIGHT Lab [facility] [address] [place] [phone] 04/25/2024 Telephone [facility] [address] [facility] [address] [place] [address] Shona Hauser MA from Last 3 Months Immunizations Immunization Administration Dates Next Due Influenza, Quad, Adjuvantate d, Intramuscular 01/16/2020 Influenza, Quadrivalent, Hig h Dose, Preservative Free, Intrr 01/17/2023,01/12/2022,12/10/2021,01/20 Influenza, Quadrivalent, Spl it, Preservative Free, Intramuscular 01/25/2019 Influenza, Trivalent, High D ose, Split, Preservative Free, Intramuscular 01/30/2014 Influenza, Unspecified 07/10/2024(Deferr ed: Patient Refused),12/14/2023(Deferred: Patient Refused),12/11/2023(Deferred: Patient Refused),12/15/2022(Deferred: Patient Refused),02/18/2021,01/09/2018, 017 Moderna SARS-CoV-2 [...] drink = 0.6 oz pur e alcohol) [facility] [employer] Answer Date Recorded In the past 12 months has [employer], [employer], oil, or water [email or web address] threatened to shut off services in your [...] 03/18/2023 How often do you attend chur or temple services? More than 4 times per year 03/18/2023 Do you belong to any clubs o r organizations such as denominational groups, unions, fraternal or athletic groups, or [...] place to sleep or slept in a penitentiary (including now)? No 03/18/2023 Personal Safety Answer [...] on file Legal Sex Female 3:[address] [facility] FREIGHT Gender Identity Not on file Sexual Orientation [...] Sign Reading Time Taken Comments Blood Pressure 128/82 07/10/2024 3:41 PM CDT Pulse 58 07/10/2024 3:41 PM CDT Temperature 36.6 C (97.9 F) 12/19/2023 10:04 AM CDT Respiratory Rate 18 07/10/2024 3:41 PM CDT Oxygen Saturation 94% 07/10/2024 3:41 PM CDT Inhaled Oxygen Concentration - - Weight 94.5 kg (208 lb 6.4 oz) 07/10/2024 3:41 P M CDT Height 154.9 cm (5' 0.98 ) 07/10/2024 3:41 PM CD T Body Mass Index 39.4 07/10/2024 3:41 PM CDT Plan of Treatment Health Maintenance Due Date Last Done Comments Zoster Vaccine (2 of 2) 04/05/2023 02/08/2023 Covid-19 Vaccine (2023-2 5 season) 2023 02/18/2021, 06/24/2020, 05/21/2020 Lung Cancer Screening 07/13/2024 07/13/2023, 023 Influenza Vaccine (Season Ended) 2024 01/17/2023, 01/12/2022, 12/10/2021, Additional history exists Well Visit 65+ 12/18/2024 12/19/2023, 0909/2022, 12/10/2021, Additional history exists Breast Cancer Screening-Mammogram 01/15/2025 01/16/2024, 11/20/2022, 08/04/2021, Additional history exists Depression Screening 07/10/2025 07/10/2024, 12/19/2023, 12/15/2022, Additional history exists Fall Risk Assessment 07/10/2025 07/10/2024, 12/19/2023, 03/16/2023, Additional history exists Osteoporosis Screening-Bone Density Scan 01/15/2026 01/16/2024, 08/04/2021, 04/26/2019, Additional history exists Colon Cancer Screening-Colonoscopy 05/22/2029 05/22/2019, 06/14/2009 Hepatitis C Screening Completed 05/18/2019 Colon Cancer Screening-CT Colonography Discontinued 05/22/2019, 06/14/2009 Colon Cancer Screening-DNA Stool Discontinued 05/22/2019, 05/04/2019, 06/14/2009 Colon Cancer Screening-FIT Discontinued 05/22, 05/04/2019, 06/14/2009 Colon Cancer Screening-Sigmoidoscopy Discontinued 05/22/2019, 06/14/2009 Pneumococcal vaccine 65+ Completed 11/22/2019, 0809/2018 Hepatitis B Screening Completed 12/14/2023 DTaP/Tdap/Td Vaccine Discontinued Goals Goal Patient Goal Type Associated Problems Recent Progress Patient-Stated? Author BH-Pain Behavioral Health Improving( 1:51 PM CDT) oLrrie Layton, LEA Note: Patient will establish a comfort-function goal and identify the pain level that will allow the patient to perform desired activities and achieve an acceptable quality of life. Procedures Procedure Name Priority Date/Time Associated Diagnosis Comments ECG 12-LEAD Routine 05/11/2024 1:[address] ENGINEER FREIGHT Essential (primary) hypertension EGFR Routine 05/11/2024 10:[address] ENGINEER FREIGHT URINALYSIS, MICROSCOPIC ONLY Routine 05/11/2024 10:[address] ENGINEER FREIGHT DIFFERENTIAL AUTO Routine 05/11/2024 10: [address] ENGINEER FREIGHT BASIC METABOLIC PANEL Routine 05/11/2024 10:[address] ENGINEER FREIGHT HEMOGLOBIN A1C Routine 05/11/2024 10:[address] ENGINEER FREIGHT CBC WITH AUTO DIFFERENTIAL Routine 05/11/2024 10:[address] ENGINEER FREIGHT URINALYSIS AND REFLEX TO MICROSCOPIC AND CULTURE Routine 05/11/2024 10:[address] ENGINEER FREIGHT SCREENING MAMMOGRAM BILATERAL W ANDREW Schedule Routine, Read Routine (OP Routine) 01/16/2024 2:28 PM CDT Screening mammogram, encounter for DEXA AXIAL SKELETON BONE DENSITY 1 OR MORE SITES Schedule Routine, Read Routine (OP Routine) 01/16/2024 2:16 PM CDT Post-menopausal CT LUNG CANCER SCREENING Schedule Routine, Read Routine (OP Routine) 07/13/2023 5:26 PM CDT Personal history of nicotine dependence COLONOSCOPY 05/22/2019 10:[address] ENGINEER FREIGHT HEPATITIS C ANTIBODY Routine 05/18/2019 10:[address] ENGINEER FREIGHT Encounter for hepatitis C screening test for low risk patient from Last 3 Months or Most Recently Relevant to Health Maintenance Results * ECG 12 lead (05/11/2024 1:[address] ENGINEER FREIGHT) 05/11/2024 1:[address] ENGINEER FREIGHT Narrative [facility] - 05/11/2024 2:[address] ENGINEER FREIGHT Vent Rate: 60 bpm RR Interval: 988 msec LA Interval: 153 msec QRS Duration: 94 msec QT Interval: 424 msec QTC Interval: 425 msec P-R-T [place]: 33 - 75 - 47 degrees IMPRESSION: SINUS RHYTHM Probably normal. No prior EKG for comparison Electronically Signed By: Dr Jeff Austin Jarred Koch MD ECG ORDERABLES Final Result [facility] * eGFR (05/11/2024 10:[address] ENGINEER FREIGHT) eGFR >90 >=60 mL/min/1. 73 m2 Comment: [...] was last reviewed 2021. Testing performed by: [facility], [address] [place] [address]., [id number] Blood 05/11/2024 10:[address] ENGINE[facility] FREIGHT 05/11/2024 12:[address] ENGINEER FREIGHT Jarred Koch MD LAB BLOOD ORDERABLES Final R esult [facility] (KARNAK) [address] [facility] Department [place] [address] * Differential, auto (05/11/2024 10:[address] ENGINEER FREIGHT) Neutrophil abs 5.3 1.5 - 6.5 K/cumm Comment:Testing performed by : [facility], [address] [place] [address], [id number] Imm gran abs 0.0 0.0 - 0.1 K/cumm [facility] (CR) Comment:Testing performed by : [facility], [address] [place] [address]., [address] Lymphocyte abs 2.0 0.8 - 3.3 K/cumm [facility] (CR) Comment:Testing performed by : [address] [address] Monocyte abs 0.6 0.2 - 0.8 K/cumm [facility] (CR) Comment:Testing performed by : [facility], [address] [place] [address]., [address] Eosinophil abs 0.2 0.0 - 0.5 K/cumm [facility] (CR) Comment:Testing performed by : [address] [address] Basophil abs 0.1 0.0 - 0.1 K/cumm [facility] (CR) Comment:Testing performed by : [address], [address] Neutrophil pct 64.4 % [facility] (CR) Comment: Interpretive Data Percent cell count reference ranges are not reported, since discordance with absolute values may lead to misinterpretation of CBC data. Current Interpretive Data was last revised on 2017. Testing performed by: [facility], [address] [place] [address]., [address] Imm gran pct 0.2 % [facility] (CR) Comment: Interpretive Data Percent cell count reference ranges are not reported, since discordance with absolute values may lead to misinterpretation of CBC data. Current Interpretive Data was last revised on 2017. Testing performed by: [address] [address] Lymphocyte pct 24.5 % [facility] (CR) Comment: Interpretive Data Percent cell count reference ranges are not reported, since discordance with absolute values may lead to misinterpretation of CBC data. Current Interpretive Data was last revised on 2017. Testing performed by: [address] [address] Monocyte pct 7.8 % [facility] (CR) Comment: Interpretive Data Percent cell count reference ranges are not reported, since discordance with absolute values may lead to misinterpretation of CBC data. Current Interpretive Data was last revised on 2017. Testing performed by: [address] [address] Eosinophil pct 2.5 % [facility] (CR) Comment: Interpretive Data Percent cell count reference ranges are not reported, since discordance with absolute values may lead to misinterpretation of CBC data. Current Interpretive Data was last revised on 2017. Testing performed by: [address] [address] Basophil pct 0.6 % [facility] (CR) Comment: Interpretive Data Percent cell count reference ranges are not reported, since discordance with absolute values may lead to misinterpretation of CBC data. Current Interpretive Data was last revised on 2017. Testing performed by: [address] [address] Blood 05/11/2024 10:[address] [facility] FREIGHT 05/11/2024 10:[address] [facility]INEER FREIGHT Jarred Koch MD LAB BLOOD ORDERABLES Final R esult [facility] (CR) [address] [facility] Department [place] [address] * (ABNORMAL) Urinalysis reflex to microscopic and culture Urine, clean voided (05/11/2024 10:[address] ENGINEER FREIGHT) Color, ur Yellow Yellow Comment:Testing performed by : [facility], [address] [place] [address]., [address] Clarity, ur Clear Clear [facility] (CR) Comment:Testing performed by : [address] [address] Specific gravity, ur 1.026 1.003 - 1.030 [facility] (CR) Comment:Testing performed by : [address], [address] pH, urine 5.5 [facility] (CR) Comment: Interpretive Data U rine pH is affected by diet, medications, systemic acid-base disturbances, and renal tubular function. pH may affect urinary stone formation. For example, urine pH below 6.0 may help reduce the tendency for calcium phosphate stones and pH greater than 6.0 may reduce the tendency for uric acid stone formation. Source: [email or web address] Current Interpretive Data was last revised on 2017 Testing performed by: [address] [address] Protein, ur ql Negative Negative [facility] (CR) Comment:Testing performed by : [address] [address] Glucose, ur ql Negative Negative [facility] (CR) Comment:Testing performed by : [address] [address] Ketones, ur Negative Negative [facility] (CR) Comment:Testing performed by : [address] [address] Bilirubin, ur Negative Negative [facility] (CR) Comment:Testing performed by : [address] [address] Blood, ur Trace(A) Negative [facility] (CR) Comment:Testing performed by : [address] [address] Urobilinogen, ur <2.0 <2.0 mg/dL [facility] (CR) Comment:Testing performed by : [address] [address] Nitrite, ur Negative Negative [facility] Hopkins (CR) Comment:Testing performed by : [address], [address] Leukocyte esterase, ur 3+(A) Negative [facility] (CR) Comment:Testing performed by : [address], [address] UA reflex comment Reflex to microscopic UA will be performed. [facility] (CR) Comment:Testing performed by : [address], [address] Urine, clean voided 05/11/2024 10:[address] [facility]INE[facility] FREIGHT 05/11/2024 10:[address] [facility]INEER FREIGHT Jarred Koch MD LAB MICROBIOLOGY - GENERAL O RDERABLES Final Result [facility] (KARNAK) [address] [facility] Department [place] [address] * (ABNORMAL) CBC with auto differential (05/11/2024 10:[address] ENGINEER FREIGHT) WBC 8.2 3.8 - 9.9 K/cumm Comment:Testing performed by : [address], [address] Hgb 15.1 11.9 - 15.5 g/dL [facility] (CR) Comment:Testing performed by : [address], [address] Hct 47.9(H) 35.6 - 45.5 % [facility] (CR) Comment:Testing performed by : [address], [address] Plt 227 150 - 400 K/cumm [facility] (CR) Comment:Testing performed by : [address], [place]., [address] MPV 10.0 9.1 - 12.3 fL [facility] (CR) Comment:Testing performed by : [address], [address] RBC 5.55(H) 3.90 - 5.20 M/cumm [facility] (CR) Comment:Testing performed by : [address], [address] MCV 86.3 81.3 - 96.4 fL [facility] (CR) Comment:Testing performed by : [address], [address] MCH 27.2 27.1 - 33.3 pg [facility] (CR) Comment:Testing performed by : [address], [address] MCHC 31.5(L) 32.3 - 35.7 g/dL [facility] (CR) Comment:Testing performed by : [address], [address] RDW CV 15.6(H) 11.1 - 14.9 % [facility] (CR) Comment:Testing performed by : [address] [address], [address] RDW SD 49.2(H) 35.7 - 48.1 fL [facility] (CR) Comment:Testing performed by : [address], [address] NRBC abs 0.00 0.00 - 0.01 K/cumm [facility] (CR) Comment:Testing performed by : [address], [address] Blood 05/11/2024 10:[address] ENGINEER FREIGHT 05/11/2024 10:[address] ENGINEER FREIGHT Jarred Koch MD LAB BLOOD ORDERABLES Final R esult [facility] (KARNAK) [facility] Department [place] [address] * (ABNORMAL) Urinalysis, microscopic only (05/11/2024 10:[address] ENGINEER FREIGHT) WBC, ur 0-5 0 - 5 Comment:Testing performed by : [address] [address] RBC, ur 0-2 0 - 2 /HPF SUJATA FARIAS (CR) Comment:Testing performed by : [address], [address] Epithelial cells, squamous, ur 11-20(A) 0 - 5 /HPF SUJATA FARIAS (CR) Comment:Testing performed by : [facility], [address] [place] [address], [address] Mucous, ur Present(A) SUJATA Hopkins (CR) Comment:Testing performed by : [address], [address] Culture Reflex Comment Reflex conditions for urine culture (WBC >10) not met. SUJATA FARIAS (CR) Comment:Testing performed by : [address], [address] Urine, clean voided 05/11/2024 10:[address] ENGINEER FREIGHT 05/11/2024 12:[address] ENGINEER FREIGHT Jarred Koch MD LAB URINE ORDERABLES Final R esult SUJATA FARIAS (CR) 1 [facility] Department [place] [address] * (ABNORMAL) Hemoglobin A1c (05/11/2024 10:[address] ENGINEER FREIGHT) Hgb A1C 6.3(H) 4.0 - 5.6 % Comment:Testing performed by : [address], [address] Estimated Average Glucose 134 mg/dL SUJATA FARIAS (CR) Comment: The ADA recommends reporting an estimated Average Glucose (eAG) with all Hemoglobin A1c results using the equation derived from a study of 507 normal and diabetic adults. Minority populations were underrepresented and children were not included. (Diabetes Care 31:2483-0037, 2008). The eAG is not equivalent to a fasting glucose. Testing performed by: [address] [address] Blood 05/11/2024 10:[address] ENGINEER FREIGHT 05/11/2024 10:[address] ENGINEER FREIGHT Jarred Koch MD LAB BLOOD ORDERABLES Final R esult [facility] (KARNAK) 1 [facility] Department [place] [address] * (ABNORMAL) Basic metabolic panel (05/11/2024 10:[address] ENGINEER FREIGHT) Sodium 142 135 - 145 mmol/L Comment:Testing performed by : [address] [address] Potassium, pl 3.7 3.3 - 4.9 mmol/L [facility] (CR) Comment:Testing performed by : [address], [address] Chloride 101 97 - 110 mmol/L [facility] (CR) Comment:Testing performed by : [address], [address] CO2 27 22 - 32 mmol/L [facility] (CR) Comment:Testing performed by : [address] [address] Anion gap 14 2 - 15 mmol/L [facility] (CR) Comment:Testing performed by : [address], [address] BUN 14 6 - 25 mg/dL [facility] (CR) Comment:Testing performed by : [address], [address] Creatinine 0.51(L) 0.60 - 1.10 mg/dL [facility] (CR) Comment:Testing performed by : [address], [address] Glucose 130 70 - 199 mg/dL CERNER [...] was last revised 2022. Testing performed by: [facility], [address] [place] [address]., [address] Calcium 9.2 8.5 - 10.3 mg/dL SUJATA FARIAS (KARNAK) Comment:Testing performed by : [facility], [address] [place] [address]., [address] Blood 05/11/2024 10:[address] ENGINEER FREIGHT 05/11/2024 10:[address] ENGINEER FREIGHT Jarred Koch MD LAB BLOOD ORDERABLES Final R esult SUJTAA FARIAS (KARNAK) 1 [facility] Department [place] [address] * Screening Mammogram Bilateral W Andrew (01/16/2024 [...] history of: screening Osteoporosis screening 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 MF: SHERYL Report ID: [id number] Reading Location: [place] [address] Charlie Mtz MD IMG DXA PROCEDURES Final [...] Lux Sin M.D. AM: AM Report ID: [id number] Reading Location: [place] [address] Procedure Note Lux Sin MD - 07/14/2023 [...] Lux Sin M.D. AM: AM Report ID: [id number] Reading Location: [id number] Charlie Mtz MD [facility] CT PROCEDURES Final R esult * COLONOSCOPY (05/22/2019 10:[address] ENGINEER FREIGHT) Anatomical Region Laterality Modality Other Narrative Procedure Note Marlon Cronin MD - 05/22/2019 10:39 AM CST [facility] Patient Name: Brittanie Gambino Procedure Date: 05/22/2019 10:39 AM Date of : 1955 Admit Type: Outpatient Age: 63 Gender: Female Attending MD: Marlon Cronin M.D. Room: [facility]COPY ROOM 2 Note Status: Finalized Patient Profile: Refer to note in patient chart for documentation of history and physical. Procedure: Colonoscopy Indications: Screening for colorectal malignant neoplasm, Last colonoscopy: June 2009 Referring MD: Sage BorgesNRoberto. Providers: Marlon Cronin M.D. Impression: - Hemorrhoids [...] scope was passed under direct vision.The Colonoscope [id number] was introducedthrough the anus and advanced to [...] malignant neoplasm of colon CPT copyright 2017 [employer]. All rights reserved. The codes documented in this report are preliminary and upon chair car driver reviewmay be revised to meet current compliance requirements. Recognized by the [employer] for promoting quality in endoscopy Marlno Cronin MD ENDOSCOPY PROCEDURES Final Re sult * Hepatitis C antibody (05/18/2019 10:[address] ENGINEER FREIGHT) Hep C Ab Negative Negative SUJATA FARIAS (CR) Comment:Testing performed by : [facility], [address] [place] [address], [place]., [address] Blood specimen (specimen) 05/18/2019 10:[address] ENGINEER FREIGHT 05/18/2019 1:[address] ENGINEER FREIGHT Sydney Tompkins NP LAB MICROBIOLOGY - GENERAL O RDERABLES Final Result [facility] [place]) [address] [place] [id number] from Last 3 Months or Most Recently Relevant to Health Maintenance Insurance [facility] Address: [address] [place] [id number] [facility] [address] MEDICARE [facility] Advance Directives For more information, please contact: [phone] * Full Code (Latest Code Status on File) Date Activated Date Inactivated Comments 03/13/2023 4:52 AM 03/16/2023 6:28 PM * Full Code Date Activated Date Inactivated Comments 07/01/2020 12:51 PM 07/01/2020 6:46 PM * Full Code Date Activated Date Inactivated Comments 05/22/2019 10:14 AM 05/22/2019 4:30 PM * Full Code Date Activated Date Inactivated Comments 05/22/2019 10:14 AM 05/22/2019 10:14 AM 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
--- OUTSIDE RECORDS SUMMARY | 2024-07-13 11:03 | XMS_ITS | Encounter Summary ---
Author Organization [facility] Healthcare Address [address] [place] [address] Care Team Providers Care Liberal [employer] Human[employer] Chair Name Role Phone Marc Santoyoie Lupe PATIENT APPOINTMENT COORDINATOR Unavailable [phone] Davey Myles PATIENT APPOINTMENT COORDINATOR Unavailable [phone] Charlie Mtz MD Primary Care Provider [phone] Reason for Visit * Reason Onset Date Comments Forms Request 06/21/2024 Encounter Details Date Type Department Care Team (Late st Contact Info) Description 06/21/2024 Telephone [facility] [address] [place] [address] Charlie Mtz MD [address] [place] [id number] Forms Request Social History Tobacco Use Types Packs/Day Years Used Date Smoking Tobacco: Former Cigarettes 0.8 28 0 06/25/1993 - 06/25/2021 Smokeless Tobacco: Former Quit: 06/25/2021 Alcohol Use Standard Drinks/Week Comments No 0 (1 standard drink = 0.6 oz pur e alcohol) [facility] Utilities Answer Date Recorded In the past 12 months has [employer], gas, oil, or water company threatened to [...] often do you attend chur ch or restorationism services? 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
--- OUTSIDE RECORDS SUMMARY | 2024-07-13 11:03 | XMS_ITS | Referral Summary ---
Author Organization [facility] Virtual Care Address [address] [place] [id number] Phone Care Team Providers Care Corporate Training Manager Name Role Phone Sintia Santoyo [employer] Unavailable [phone] Davey Myles [employer] Unavailable [phone] Charlie Mtz MD Primary Care Provider [phone] Encounters Date Type Department Care Team Description 07/10/2024 Nurse Triage [facility] [address] [phone] Charlie Mtz MD 07/10/2024 4:00 PM CDT Office Visit [facility] [address] [phone] Ellie Wright NP Acute non-recurrent maxillary sinusitis (Primary Dx); Acute diffuse otitis externa of left ear; Class 2 severe obesity due to excess calories with serious comorbidity and body mass index (BMI) of 39.0 to 39.9 in adult (HCC) 07/10/2024 Nurse Triage [facility] [address] [phone] Charlie Mtz MD 07/09/2024 Telephone [facility] [address] [phone] Charlie Mtz MD Medical Question/Miscellaneo us 06/21/2024 Telephone [facility] [address] [phone] Charlie Mtz MD Forms Request 06/05/2024 Telephone [facility] [address] [phone] Charlie Mtz MD 05/31/2024 Telephone [facility] [address] [phone] Charlie Mtz MD Medical Records Request 05/31/2024 Telephone [facility] [address] [phone] Charlie Mtz MD Test Results 05/11/2024 1:02 PM HOUSE MOTHER - 05/11/2024 11:59 PM HOUSE MOTHER Hospital Encounter [facility] [address] [place] [address] Essential (primary) hypertension Discharge Disposition: Discharge to home or self care 05/11/2024 10:00 AM HOUSE MOTHER Lab [facility] [address] [place] [phone] 04/25/2024 Telephone [facility] [address] [facility] [address] [place] [address] Shona Hauser MA from Last [...] loss Assessment & Plan (06/16/2023 1:29 PM HOUSE MOTHER): Stable, generally well controlled, patient reports no [...] control Assessment & Plan (05/28/2021 1:00 PM HOUSE MOTHER): Not well controlled, encouraged patient continue to [...] options Assessment & Plan (06/16/2023 1:30 PM HOUSE MOTHER): Stable, well controlled, improving; patient reports she is more physically active, engaging in social activities, re-engage with pentecostalism Would like to decrease Zoloft given vivid [...] 02/22/2020 Assessment & Plan (02/22/2020 12:16 PM HOUSE MOTHER): Small patch of atopic dermatitis on mid [...] today. Assessment & Plan (04/17/2019 2:34 PM HOUSE MOTHER): Repeat CBC in 2 weeks. She was previously taking steroids during her ED visit which may have falsely elevated her white blood count. Vitamin D deficiency 04/17/2019 Assessment & Plan (02/22/2020 9:32 AM HOUSE MOTHER): Last vitamin d level 12/07/2019 52. Recommend vitamin d3 2000 international units once daily. Assessment & Plan (11/24/2019 3:46 PM CDT): Continue vitamin d2 50,000 International units once weekly and repeat vitamin d level today. Assessment & Plan (04/17/2019 2:34 PM HOUSE MOTHER): [place] [address] units once weekly. Get vitamin-D level in 2 weeks with labs. High risk of cardiac event 04/17/2019 Assessment & Plan (09/02/2022 4:40 PM CDT): Stable, well controlled; continue pravastatin 40 mg daily; continue ASA 81 mg daily Encourage risk modifications Assessment & Plan (04/17/2019 2:34 PM HOUSE MOTHER): Patient's ASCVD risk score is 13.3%. I recommended that she be on statin instead of bile acid sequestrant for CV prophylaxis. Start atorvastatin 10 mg daily. Mixed hyperlipidemia 04/17/2019 Assessment & Plan (12/19/2023 10:41 AM CDT): Chronic, stable, well controlled Continue Pravastatin 40 mg daily Assessment & Plan (06/16/2023 1:29 PM HOUSE MOTHER): Stable, well controlled, lipids in optimal range Continue pravastatin 40 mg daily Assessment & Plan (06/09/2022 4:56 PM HOUSE MOTHER): Well controlled, lipids at target Continue pravastatin 40 mg nightly Assessment & Plan (12/15/2021 4:59 PM CDT): Stable, well controlled; continue pravastatin 40 mg nightly Assessment & Plan (09/08/2021 2:06 PM CDT): Stable, generally well controlled; continue pravastatin 40 mg nightly Assessment & Plan (07/09/2021 11:01 AM CDT): Stable, well controlled; continue pravastatin 40 mg nightly Assessment & Plan (05/28/2021 12:58 PM HOUSE MOTHER): Stable, well controlled last lipid panel demonstrated normal total cholesterol, LDL mildly elevated 114; continue to monitor encourage low-fat high-fiber diet Continue pravastatin 40 mg daily Assessment & Plan (11/30/2020 1:37 PM CDT): Lipids are well controlled on pravastatin 40 mg once daily. Assessment & Plan (02/22/2020 12:13 PM HOUSE MOTHER): Lipids are well controlled on pravastatin 40 mg once daily. Assessment & Plan (11/24/2019 3:43 PM CDT): Continue pravastatin 40 mg daily. Repeat lipid profile today. Recommended Mediterranean diet. Do not think keto diet facilitates a heart healthy diet. Assessment & Plan (09/07/2019 1:31 PM CDT): Continue pravastatin 40 mg daily. Repeat lipid profile in November. Assessment & Plan (04/17/2019 2:35 PM HOUSE MOTHER): Lipid abnormalities are unchanged. Nutritional counseling was [...] visit; 124/76 Continue Bystolic 20 mg and Mwlfiesquq-zsmpeufauk-PAIR 40-10-25 mg daily Assessment & Plan (08/08/2023 1:14 PM CDT): Stable, well controlled; blood pressure goals; continue Bystolic 20 mg daily, mwbjnovyus-fxghevmwzc-engshdshdgjuuuqbqhg 40-10-25 mg Assessment & Plan (06/16/2023 1:29 PM HOUSE MOTHER): Stable, well controlled, blood pressure at goal; patient reports no chest pain or headaches Continue Bystolic 20 mg daily, xnjcdimzuf-zheqrwjpul-geauggklcrsxrrcozwc 40-10-251 tablet daily; Assessment & Plan (09/02/2022 4:39 PM CDT): Stable, well controlled; blood pressure at target No chest pain or headaches Continue Bystolic 20 mg daily, Tribenzor 40-10-251 tablet daily Assessment & Plan (06/09/2022 4:57 PM HOUSE MOTHER): Stable, blood pressure at target Continue Tribenzor [...] daily Assessment & Plan (05/28/2021 12:59 PM HOUSE MOTHER): Stable, generally well controlled; blood pressure mildly [...] appointment. Assessment & Plan (02/22/2020 12:14 PM HOUSE MOTHER): Hypertension is improved. Continue current treatment regimen. [...] appointment. Assessment & Plan (04/17/2019 2:32 PM HOUSE MOTHER): Hypertension is improving with treatment. Continue current [...] cessation Assessment & Plan (05/28/2021 1:02 PM HOUSE MOTHER): Patient continues to smoke, smoking about 1 pack per day Encouraged patient to continue to work towards complete cessation Patient understands importance of smoking, but is not yet gotten to change mind set Assessment & Plan (11/30/2020 1:39 PM CDT): Encourage smoking cessation. Assessment & Plan (02/22/2020 12:12 PM HOUSE MOTHER): Encourage smoking cessation. Had quit for almost [...] phone. Assessment & Plan (04/17/2019 2:33 PM HOUSE MOTHER): Encourage smoking cessation. Assessment & Plan (11/15/2018 [...] daily Assessment & Plan (06/09/2022 4:59 PM HOUSE MOTHER): Stable, last A1c was 6.2; at target [...] daily Assessment & Plan (05/28/2021 12:59 PM HOUSE MOTHER): Continue to monitor, check A1c to evaluate blood sugars are continue to elevate Continue Tradjenta 5 mg Assessment & Plan (11/30/2020 1:38 PM CDT): A1c today Continue Tradjenta 5 mg once daily. Assessment & Plan (02/22/2020 12:13 PM HOUSE MOTHER): A1c well controlled at 6.3. Continue Tradjenta 5 mg once daily. Assessment & Plan (11/24/2019 3:45 PM CDT): Patient on Tradjenta 5 mg daily. Continue medication and diet lifestyle modifications. Assessment & Plan (04/17/2019 2:32 PM HOUSE MOTHER): Patient on Tradjenta 5 mg daily. A1c [...] daily Assessment & Plan (06/09/2022 4:58 PM HOUSE MOTHER): Stable, improving, quit smoking June 25, 2021; [...] dyspnea, though does report decreased insurance and long term Discussed with patient importance of continued activity and exercise in order to maintain pulmonary help Congratulated patient on smoking cessation will continue Spiriva 18 mcg daily Assessment & Plan (05/28/2021 1:01 PM HOUSE MOTHER): Stable, generally well controlled; patient has few [...] p.r.n. Assessment & Plan (02/22/2020 12:16 PM HOUSE MOTHER): COPD is worsening. Discussed monitoring symptoms and [...] steroids. Assessment & Plan (04/17/2019 2:32 PM HOUSE MOTHER): COPD is improving with treatment. Discussed monitoring [...] levels Assessment & Plan (06/09/2022 4:58 PM HOUSE MOTHER): Not well controlled, patient reports symptoms beginning worse; patient reports episodes of agoraphobia; worry about leaving house due to concerns for panic attacks Patient every 6 months ago; continues to have grief related to also Refer to [facility] for individual counseling Continue sertraline 100 mg daily; start diazepam 2 mg p.r.n. for panic attacks Assessment & Plan (05/28/2021 1:01 PM HOUSE MOTHER): Not well controlled, patient has multiple recent [...] 07/12/2018 Assessment & Plan (06/16/2023 1:30 PM HOUSE MOTHER): Not well controlled, has been having some difficulty; recently neighbor mode throwing up significant amounts of dust which worsened her symptoms Hoarse voice and nasal changes in swelling, especially morning Continue daily antihistamine, continue Flonase 2 sprays 1-2 times daily Assessment & Plan (12/15/2021 5:00 PM CDT): Generally stable; patient reports symptoms, on-off Continue rktu-ccm-joziwnr antihistamine; Flonase 2 sprays each nostril daily [...] (08/05/2020): Added automatically from request for surgery [id number] Assessment & Plan (09/09/2020 5:51 PM CDT): [...] up. Assessment & Plan (05/19/2020 4:51 PM HOUSE MOTHER): Noted from recent urinalysis. Will repeat urinalysis to better evaluate her urine. Upper abdominal pain 05/08/2020 021 Overview (05/08/2020): Added automatically from request for surgery [id number] Assessment & Plan (05/19/2020 4:51 PM HOUSE MOTHER): Patient has chronic intermittent upper abdominal pain [...] 11/30/2020 Assessment & Plan (02/22/2020 12:13 PM HOUSE MOTHER): Patient has a new cough over the last 1 week. I recommended testing for COVID - 19 considering her new symptoms. Reviewed self isolation procedures. Referral for testing placed today. Abnormal feces 05/10/2019 12/19/2023 Overview (05/10/2019): Added automatically from request for surgery [id number] Obesity (BMI 30-39.9) 07/12/20182021 Assessment & Plan [...] daily. Assessment & Plan (04/17/2019 2:32 PM HOUSE MOTHER): Obesity is worsening. Discussed the patient's BMI. [...] again. Assessment & Plan (04/27/2017 10:00 AM HOUSE MOTHER): Mild pain. Associated with tenderness in the [...] drink = 0.6 oz pur e alcohol) [facility] Utilities Answer Date Recorded In the past 12 months has [employer], gas, oil, or water [employer] threatened to shut off services in your [...] often do you attend chur ch or congregational services? More than 4 times per year 03/18/2023 Do you belong to any clubs o r organizations such as pentecostalism groups, unions, fraternal or athletic groups, or [...] place to sleep or slept in a usp (including now)? No 03/18/2023 Personal Safety Answer [...] on file Legal Sex Female 3:09 PM HOUSE MOTHER Gender Identity Not on file Sexual Orientation [...] 07/10/2024 3:41 PM CDT Plan of Treatment Not on file [...] Comments ECG 12-LEAD Routine 05/11/2024 1:16 PM HOUSE MOTHER Essential (primary) hypertension EGFR Routine 05/11/2024 10:07 AM HOUSE MOTHER URINALYSIS, MICROSCOPIC ONLY Routine 05/11/2024 10:07 AM HOUSE MOTHER DIFFERENTIAL AUTO Routine 05/11/2024 10: 07 AM HOUSE MOTHER BASIC METABOLIC PANEL Routine 05/11/2024 10:07 AM HOUSE MOTHER HEMOGLOBIN A1C Routine 05/11/2024 10:07 AM HOUSE MOTHER CBC WITH AUTO DIFFERENTIAL Routine 05/11/2024 10:07 AM HOUSE MOTHER URINALYSIS AND REFLEX TO MICROSCOPIC AND CULTURE Routine 05/11/2024 10:07 AM HOUSE MOTHER SCREENING MAMMOGRAM BILATERAL W ANDREW Schedule Routine, Read Routine (OP Routine) 01/16/2024 2:28 PM CDT Screening mammogram, encounter for DEXA AXIAL SKELETON BONE DENSITY 1 OR MORE SITES Schedule Routine, Read Routine (OP Routine) 01/16/2024 2:16 PM CDT Post-menopausal CT LUNG CANCER SCREENING Schedule Routine, Read Routine (OP Routine) 07/13/2023 5:26 PM CDT Personal history of nicotine dependence COLONOSCOPY 05/22/2019 10:39 AM HOUSE MOTHER HEPATITIS C ANTIBODY Routine 05/18/2019 10:48 AM HOUSE MOTHER Encounter for hepatitis C screening test for low risk patient from Last 3 Months or Most Recently Relevant to Health Maintenance Results * ECG 12 lead (05/11/2024 1:16 PM HOUSE MOTHER) 05/11/2024 1:18 PM HOUSE MOTHER Narrative [facility] - 05/11/2024 2:51 PM HOUSE MOTHER Vent Rate: 60 bpm RR Interval: 988 msec MN Interval: 153 msec QRS Duration: 94 msec QT Interval: 424 msec QTC Interval: 425 msec P-R-T [place]: 33 - 75 - 47 degrees IMPRESSION: SINUS RHYTHM Probably normal. No prior EKG for comparison Electronically Signed By: Dr Jeff Austin Jarred Koch MD ECG ORDERABLES Final Result [facility] * eGFR (05/11/2024 10:07 AM HOUSE MOTHER) eGFR >90 >=60 mL/min/1. 73 m2 Comment: [...] was last reviewed 2021. Testing performed by: [facility], [address] [place] [address]., [id number] Blood 05/11/2024 10:0 7 AM HOUSE MOTHER 05/11/2024 12:39 PM HOUSE MOTHER Jarred Koch MD LAB BLOOD ORDERABLES Final R esult SUJATA FARIAS [place]) [address] [facility] Department [place] [address] * Differential, auto (05/11/2024 10:07 AM HOUSE MOTHER) Neutrophil abs 5.3 1.5 - 6.5 K/cumm Comment:Testing performed by : [facility], [address] [place] [address]., [address] Imm gran abs 0.0 0.0 - 0.1 K/cumm [facility] (CR) Comment:Testing performed by : [facility], [address] [place] [address]., [address] Lymphocyte abs 2.0 0.8 - 3.3 K/cumm [facility] (CR) Comment:Testing performed by : [facility], [address] [place] [address]., [address] Monocyte abs 0.6 0.2 - 0.8 K/cumm [facility] (CR) Comment:Testing performed by : [facility], [address] [place] [address]., [address] Eosinophil abs 0.2 0.0 - 0.5 K/cumm [facility] (CR) Comment:Testing performed by : [facility], [address] [place] [address]., [address] Basophil abs 0.1 0.0 - 0.1 K/cumm [facility] (CR) Comment:Testing performed by : [address] [address] Neutrophil pct 64.4 % [facility] (CR) Comment: Interpretive Data Percent cell count reference ranges are not reported, since discordance with absolute values may lead to misinterpretation of CBC data. Current Interpretive Data was last revised on 2017. Testing performed by: [address] [address] Imm gran pct 0.2 % [facility] (CR) Comment: Interpretive Data Percent cell count reference ranges are not reported, since discordance with absolute values may lead to misinterpretation of CBC data. Current Interpretive Data was last revised on 2017. Testing performed by: [facility], [address] [place] [address]., [address] Lymphocyte pct 24.5 % [facility] (CR) Comment: Interpretive Data Percent cell count reference ranges are not reported, since discordance with absolute values may lead to misinterpretation of CBC data. Current Interpretive Data was last revised on 2017. Testing performed by: [address] [address] Monocyte pct 7.8 % [facility] (CR) Comment: Interpretive Data Percent cell count reference ranges are not reported, since discordance with absolute values may lead to misinterpretation of CBC data. Current Interpretive Data was last revised on 2017. Testing performed by: [address] [address] Eosinophil pct 2.5 % FLOR FARIAS ([place]) Comment: Interpretive Data Percent cell count reference ranges are not reported, since discordance with absolute values may lead to misinterpretation of CBC data. Current Interpretive Data was last revised on 2017. Testing performed by: [address], [address] Basophil pct 0.6 % SUJATA FARIAS (CR) Comment: Interpretive Data Percent cell count reference ranges are not reported, since discordance with absolute values may lead to misinterpretation of CBC data. Current Interpretive Data was last revised on 2017. Testing performed by: [address], [address] Blood 05/11/2024 10:0 7 AM HOUSE MOTHER 05/11/2024 10:07 AM HOUSE MOTHER Jarred Koch MD LAB BLOOD ORDERABLES Final R esult SUJATA FARIAS ([place]) [address] [facility] Department [place] [address] * (ABNORMAL) Urinalysis reflex to microscopic and culture Urine, clean voided (05/11/2024 10:07 AM HOUSE MOTHER) Color, ur Yellow Yellow Comment:Testing performed by : [address] [address] Clarity, ur Clear Clear SUJATA Hopkins ([place]) Comment:Testing performed by : [address], [address] Specific gravity, ur 1.026 1.003 - 1.030 SUJATA FARIAS ([place]) Comment:Testing performed by : [address], [address] pH, urine 5.5 SUJATA FARIAS ([place]) Comment: Interpretive Data U rine pH is affected by diet, medications, systemic acid-base disturbances, and renal tubular function. pH may affect urinary stone formation. For example, urine pH below 6.0 may help reduce the tendency for calcium phosphate stones and pH greater than 6.0 may reduce the tendency for uric acid stone formation. Source: [facility] Apportable Current Interpretive Data was last revised on 2017 Testing performed by: [facility], [address] [place] [address], [address] Protein, ur ql Negative Negative [facility] ([facility]) Comment:Testing performed by : [address], [address] Glucose, ur ql Negative Negative [facility] (CR) Comment:Testing performed by : [facility], [address] [place] [address], [address] Ketones, ur Negative Negative [facility] (CR) Comment:Testing performed by : [address], [address] Bilirubin, ur Negative Negative [facility] (CR) Comment:Testing performed by : [address], [address] Blood, ur Trace(A) Negative [facility] (CR) Comment:Testing performed by : [address], [address] Urobilinogen, ur <2.0 <2.0 mg/dL [facility] (CR) Comment:Testing performed by : [address], [address] Nitrite, ur Negative Negative [facility] (CR) Comment:Testing performed by : [address], [address] Leukocyte esterase, ur 3+(A) Negative [facility] (CR) Comment:Testing performed by : [address], [address] UA reflex comment Reflex to microscopic UA will be performed. [facility] (CR) Comment:Testing performed by : [address], [address] Urine, clean voided 05/11/2024 10:07 AM HOUSE MOTHER 05/11/2024 10:08 AM HOUSE MOTHER Jarred Koch MD LAB MICROBIOLOGY - GENERAL O RDERABLES Final Result [facility] ([facility]) [address] [facility] Department [place] [address] * (ABNORMAL) CBC with auto differential (05/11/2024 10:07 AM HOUSE MOTHER) WBC 8.2 3.8 - 9.9 K/cumm Comment:Testing performed by : [facility], [address] [place] [address], [address] Hgb 15.1 11.9 - 15.5 g/dL [facility] (CR) Comment:Testing performed by : [facility], [address] [place] [address], [address] Hct 47.9(H) 35.6 - 45.5 % [facility] (CR) Comment:Testing performed by : [address], [address] Plt 227 150 - 400 K/cumm [facility] (CR) Comment:Testing performed by : [address], [address] MPV 10.0 9.1 - 12.3 fL [facility] (CR) Comment:Testing performed by : [address], [address] RBC 5.55(H) 3.90 - 5.20 M/cumm [facility] (CR) Comment:Testing performed by : [address], [address] MCV 86.3 81.3 - 96.4 fL [facility] (CR) Comment:Testing performed by : [address], [address] MCH 27.2 27.1 - 33.3 pg [facility] (CR) Comment:Testing performed by : [address], [address] MCHC 31.5(L) 32.3 - 35.7 g/dL [facility] (CR) Comment:Testing performed by : [address], [address] RDW CV 15.6(H) 11.1 - 14.9 % [facility] (CR) Comment:Testing performed by : [address], [address] RDW SD 49.2(H) 35.7 - 48.1 fL SUJATA FARIAS (CR) Comment:Testing performed by : [facility], [address] [place] [address], [address] NRBC abs 0.00 0.00 - 0.01 K/cumm SUJATA FARIAS ([place]) Comment:Testing performed by : [address], [address] Blood 05/11/2024 10:0 7 AM HOUSE MOTHER 05/11/2024 10:07 AM HOUSE MOTHER Jarred Koch MD LAB BLOOD ORDERABLES Final R esult SUJATA FARIAS ([place]) [address] [facility] Department [place] [address] * (ABNORMAL) Urinalysis, microscopic only (05/11/2024 10:07 AM HOUSE MOTHER) WBC, ur 0-5 0 - 5 Comment:Testing performed by : [address], [address] RBC, ur 0-2 0 - 2 /HPF SUJATA FARIAS (CR) Comment:Testing performed by : [address], [address] Epithelial cells, squamous, ur 11-20(A) 0 - 5 /HPF SUJATA FARIAS (CR) Comment:Testing performed by : [address], [address] Mucous, ur Present(A) SUJATA Hopkins (CR) Comment:Testing performed by : [address], [address] Culture Reflex Comment Reflex conditions for urine culture (WBC >10) not met. SUJATA FARIAS (CR) Comment:Testing performed by : [address], [address] Urine, clean voided 05/11/2024 10:07 AM HOUSE MOTHER 05/11/2024 12:24 PM HOUSE MOTHER Jarred Koch MD LAB URINE ORDERABLES Final R esult SUJATA FARIAS ([place]) [address] [facility] Department [place] [address] * (ABNORMAL) Hemoglobin A1c (05/11/2024 10:07 AM HOUSE MOTHER) Hgb A1C 6.3(H) 4.0 - 5.6 % Comment:Testing performed by : [address] [address] Estimated Average Glucose 134 mg/dL SUJATA FARIAS ([place]) Comment: The ADA recommends reporting an estimated Average Glucose (eAG) with all Hemoglobin A1c results using the equation derived from a study of 507 normal and diabetic adults. Minority populations were underrepresented and children were not included. (Diabetes Care 31:3125-8275, 2008). The eAG is not equivalent to a fasting glucose. Testing performed by: [address] [address] Blood 05/11/2024 10:0 7 AM HOUSE MOTHER 05/11/2024 10:07 AM HOUSE MOTHER Jarred Koch MD LAB BLOOD ORDERABLES Final R esult Performing Organization Address City/[facility]/ZIP Co de Phone Number SUJATA FARIAS ([place]) [address] [facility] Department [place] [address] * (ABNORMAL) Basic metabolic panel (05/11/2024 10:07 AM HOUSE MOTHER) Sodium 142 135 - 145 mmol/L Comment:Testing performed by : [address] [address] Potassium, pl 3.7 3.3 - 4.9 mmol/L SUJATA FARIAS ([place]) Comment:Testing performed by : [address] [address] Chloride 101 97 - 110 mmol/L SUJATA FARIAS (CR) Comment:Testing performed by : [address] [address] CO2 27 22 - 32 mmol/L [facility] (CR) Comment:Testing performed by : [facility], [address] [place] [address]., [address] Anion gap 14 2 - 15 mmol/L [facility] (CR) Comment:Testing performed by : [facility], [address] [place] [address], [address] BUN 14 6 - 25 mg/dL [facility] (CR) Comment:Testing performed by : [facility], [address] [place] [address], [address] Creatinine 0.51(L) 0.60 - 1.10 mg/dL [facility] (CR) Comment:Testing performed by : [address], [address] Glucose 130 70 - 199 mg/dL CERNER [...] classification and Diagnosis of Diabetes Diabetes Care 202; 46: S19-S40. Current interpretive data was last revised 2022. Testing performed by: [address], [address] Calcium 9.2 8.5 - 10.3 mg/dL [facility] (CR) Comment:Testing performed by : [address], [address] Blood 05/11/2024 10:0 7 AM HOUSE MOTHER 05/11/2024 10:07 AM HOUSE MOTHER Jarred Koch MD LAB BLOOD ORDERABLES Final R esult KARYNJOHAN FARIAS ([place]) [address] [facility] Department [place] [address] * Screening Mammogram Bilateral W Andrew (01/16/2024 [...] history of: screening Osteoporosis screening Post menopausal Clinical Aide/Model: clinovo (S/N [id number]) CLINICAL INFORMATION: Current height: 61 inches Maximum [...] Filemon Albert M.D. MF: SHERYL Report ID: [id number] Reading Location: [id number] [facility] Note Filemon Albert MD - 01/16/2024 EXAM DESCRIPTION: DEXA AXIAL SKELETON BONE DENSITY 1 OR MORE SITES REASON FOR STUDY: 68 y/o year old F with given history of: screening Osteoporosis screening Post menopausal Clinical Aide/Model: clinovo (S/N [id number]) CLINICAL INFORMATION: Current height: 61 inches Maximum [...] 6:41 PM - Electronically signed by Filemon SAUCEDO: SHERYL Report ID: [id number] Reading Location: [place] [address] Charlie Mtz MD IM DXA PROCEDURES Final Result * CT Lung [...] Lux Sin M.D. AM: AM Report ID: [id number] Reading Location: [place] [address] Procedure Note Lux Sin MD - 07/14/2023 [...] Lux Sin M.D. AM: AM Report ID: [id number] Reading Location: [id number] us Charlie Mtz MD IMG CT PROCEDURES Final R esult * COLONOSCOPY (05/22/2019 10:39 AM HOUSE MOTHER) Anatomical Region Laterality Modality Other Narrative Procedure Note Marlon Cronin MD - 05/22/2019 10:39 AM CST [facility] Patient Name: Brittanie Gambino Procedure Date: 05/22/2019 10:39 AM Date of : 1955 Admit Type: Outpatient Age: 63 Gender: Female Attending MD: Marlon Cronin M.D. Room: [facility] ENDOSCOPY ROOM 2 Note Status: Finalized Patient [...] scope was passed under direct vision.The Colonoscope [id number] was introducedthrough the anus and advanced to [...] malignant neoplasm of colon CPT copyright 2017 [employer]. All rights reserved. The codes documented in this report are preliminary and upon invoice coder reviewmay be revised to meet current compliance requirements. Recognized by the [employer] for promoting quality in endoscopy us Marlon Cronin MD ENDOSCOPY PROCEDURES Final Re sult * Hepatitis C antibody (05/18/2019 10:48 AM HOUSE MOTHER) Hep C Ab Negative Negative SUJATA FARIAS (CR) Comment:Testing performed by : [facility], [address] [place] [address]., [id number] Blood specimen (specimen) 05/18/2019 10:48 AM HOUSE MOTHER 05/18/2019 1:38 PM HOUSE MOTHER us Sydney Tompkins NP LAB MICROBIOLOGY - GENERAL O RDERABLES Final Result SUJATA FARIAS (CR) 1 [facility] Department [place] [address] from Last 3 Months or Most Recently Relevant to Health Maintenance [place] [address] [facility] [address] Advance Directives For more information, please contact: [phone] * Full Code (Latest Code Status on File) Date Activated Date Inactivated Comments 03/13/2023 4:52 AM 03/16/2023 6:28 PM * Full Code Date Activated Date Inactivated Comments 07/01/2020 12:51 PM 07/01/2020 6:46 PM * Full Code Date Activated Date Inactivated Comments 05/22/2019 10:14 AM 05/22/2019 4:30 PM * Full Code Date Activated Date Inactivated Comments 05/22/2019 10:14 AM 05/22/2019 10:14 AM Care Teams Corporate Training Manager Relationship Specialty Start Date [place] [address] PCP - General Family Medicine 05/28/21 Sintia Santoyo NP Nurse Practitioner Obstetrics and Gynecology 07/13/18 Davey Myles NP Nurse Practitioner Family Practice 10/16/20
--- OUTSIDE RECORDS SUMMARY | 2024-07-13 11:03 | XMS_ITS | Clinical Summary ---
Author Organization [facility] Address [address] [place] [address] Phone Care Team Providers Care Cushion Worker Name Role Phone Unavailable Unavailable Unavailable Reason for Visit and Chief Complaint gynecologic procedure : endometrial biopsy - The Chief Complaint is: EMB Problems Includes: Problems addressed during this encounter and other active Problems All Visits Onset Date Resolved Date Provider Condition S tatus Chronic Obstructive Pulmonary Disease 11/17/2018 ROWAN INGRAM NP-BC Active Last Documented On 9 2:25PM ; [facility] Previous Colposcopy 01/15/2013 ROWAN INGRAM PRODUCE MANAGER-BC Active Last Documented On 3 12:53PM ; [facility] Note: - FAIZAN! HYPERLIPIDEMIA NEC/NOS 01/20/2012 CE BIRCH MD Active Last Documented On 2 3:01PM ; [facility] HYPERTENSION NOS 12/09/2011 CE BIRCH MD Ac tive Last Documented On 2 10:05AM ; [facility] Plan of Treatment - Clinical summary provided to patient - Last Documented On 02/23/2019 10:55AM ; [facility] Call if any episodes of post menopausal bleeding - assuming bx results from today are WNL. Advised f/u with pcp if right lower quadrant pain recurs - denies today. - Last Documented On 02/23/2019 10:55AM ; [facility] Education and Decision Aids were provided during visit for: INFORMED CONSENT DISCUSSION: Endometrial biopsy was discussed in detail including discomfort, insufficient specimen with need to repeat test, and rare incidence of uterine perforation. Patient expressed understanding of the above and consented to the procedure Last Documented On 9 10:32AM ; [facility] Assessments Includes: Assessments from this encounter No [...] procedure Last Documented On 9 10:32AM ; [facility] Medical Equipment - Implanted Devices Includes: Current Devices No Medical Equipment Recorded Medications Includes: Medications discussed during this encounter and other current Medications Current Medications (continue as prescribed) Co Q10 100MG Oral Capsule 11/17/2018 Provider: Diagnosis: Last Documented On 9 2:24PM By DESHAWN DOYLE ; [facility] Tribenzor 40-10-25MG Oral Tablet 11/17/2018 Provider : Diagnosis: Last Documented On 9 2:24PM By DESHAWN DOYLE ; [facility] Omeprazole 20MG Oral Tablet Delayed Release 2017 Provider: Diagnosis: Last Documented On 8 12:41PM By DONALDO DOYLE ; [facility] Bystolic 20MG Oral Tablet 11/16/2017 Provider: Diagnosis: Last Documented On 8 12:41PM By DONALDO DOYLE ; [facility] Fetzima 80MG Oral Capsule Extended Release 24 Hour 11/2017 Provider: Diagnosis: Last Documented On 8 12:42PM By DONALDO DOYLE ; [facility] Biotin 5000MCG Oral Capsule 11/16/2017 Provider: Diagnosis: Last Documented On 8 12:42PM By DONALDO DOYLE ; [facility] Fish Oil 1000MG Oral Capsule 11/16/2017 Provider : Diagnosis: Last Documented On 8 12:42PM By DONALDO DOYLE ; [facility] Jsavwttbxa-Ovoufvmpzx-RJKV 40-10-25MG Oral Tablet 11/2017 Provider: Diagnosis: Last Documented On 8 12:43PM By DONALDO DOYLE ; [facility] Welchol 625 MG OR TABS 01/15/2013 Provider: Diagnosis: Last Documented On 01/15/2013 1:05PM By DONALDO DOYLE ; [facility] Bystolic 5 MG OR TABS 12/09/2011 Provider: Diagnosis: Last Documented On 12/09/2011 10:03AM By AV CORCORAN ; [facility] Spiriva HandiHaler 18 MCG IN CAPS 12/09/2011 Provide r: Diagnosis: Last Documented On 12/09/2011 10:04AM By AV CORCORAN ; [facility] Past Medications on file Keflex 500 MG OR CAPS 01/30/2008 - 02/06/2008 Provider : Diagnosis: Last Documented On 06/09/2009 12:22PM By VIRIDIANA PINTO ; [facility] Medications Administered Includes: Administered Medications from this encounter No Administered Medications Recorded Vital Signs Includes: Vital Signs from this encounter Vital Name 02/23/2019 10:40A 02/23/2019 10: 33A Blood Pressure Sitting L 130/70 BP Cuff Size Large Height (in) 62 Weight (lb) 190 Body Mass Index (kg/m2) 34.8 Body Surface Area (m2) 1.9 Last Documented: On 02/23/2019 10:40A M ; [facility] On 02/23/2019 10:38AM ; [facility] Results Includes: Results discussed during this encounter No Results Recorded For Specified Dates History of Present Illness Includes: History of Present Illness from this encounter No History of Present Illness Recorded Social History Description Last Updated Alcohol use 02/23/2019 Last Documented On 9 10:55AM ; [facility] Cigarette smoking 02/23/2019 Last Documented On 9 10:55AM ; [facility] In monogamous relationship 02/23/2019 Last Documented On 9 10:55AM ; [facility] Not using drugs 02/23/2019 Last Documented On 9 10:55AM ; [facility] Catholic affiliation [employer] 9 Last Documented On 9 10:55AM ; [facility] Sexually active with 1 partners in the l ast year 02/23/2019 Last Documented On 9 10:55AM ; [facility] Smoking status : Current everyday smoker 02/23/2019 Last Documented On 9 10:55AM ; [facility] Social history unchanged 02/23/2019 Last Documented On 9 10:55AM ; [facility] Procedures and Surgical History Includes: Procedures from this encounter Procedures Code Diagnosis Performing Provider Service Location Service Date endometrial biopsy was performed ~Procedure Note: Done without complications.~Amt of Tissue: Scant with 2 passes~Uterine Sound Measurement: Approximately 6 cm after single tooth tenaculum applied to anterior cervix. Excellent hemostasis with silver nitrate x 2 [id number] Last Documented On 9 10:55AM ; [facility] [place] the [place] [id number] Last Documented On 9 10:32AM ; [facility] no uterine enlargement Last Documented On 9 10:32AM ; [facility] no mass lesion of the uterus Last Documented On 9 10:32AM ; [facility] [place]vag[place] [id number] Last Documented On 9 10:32AM ; [facility] no enlargement of the right ovary Last Documented On 9 10:32AM ; [facility] no enlargement of the left ovary Last Documented On 9 10:32AM ; [facility] no mass on the right ovary Last Documented On 9 10:32AM ; [facility] no mass on the left ovary Last Documented On 9 10:32AM ; [facility] endometrium thickness 7.0 mm Last Documented On 9 10:32AM ; [facility] the cul-de-sac had no fluid present Last Documented On 9 10:32AM ; [facility] Surgical History Last Updated Dilation + Curettage 02/23/2019 Last Documented On 9 10:55AM ; [facility] Surgical / procedural history orthroscop ic left knee surg ~d&c ~bile duct 02/23/2019 Last Documented On 9 10:55AM ; [facility] Medical History Includes: Medical History addressed during this encounter Description Last Updated Last pap smear date 11/17/2018 02/23/2019 Last Documented On 9 10:55AM ; [facility] FREQUENT UTI'S ~D & C 02/23/2019 Last Documented On 9 10:55AM ; [facility] 3 02/23/2019 Last Documented On 9 10:55AM ; [facility] History of a DXA of the lateral lumbar s pine was performed 02/12/2013 02/23/2019 Last Documented On 9 10:55AM ; [facility] History of benign essential hypertension 02/23/2019 Last Documented On 9 10:55AM ; [facility] History of chronic obstructive pulmonary disease 02/23/2019 Last Documented On 9 10:55AM ; [facility] History of complete colonoscopy 2009 Last Documented On 9 10:55AM ; [facility] History of hyperlipidemia 02/23/2019 Last Documented On 9 10:55AM ; [facility] History of menopause lmp more than 5 yrs ago 02/23/2019 Last Documented On 9 10:55AM ; [facility] History of Pap smear done 11/16/201702/09 Last Documented On 9 10:55AM ; [facility] History of screening mammogram was perfo rmed 08/23/2017 02/23/2019 Last Documented On 9 10:55AM ; [facility] LMP: 2003 02/23/2019 Last Documented On 9 10:55AM ; [facility] No recent change in medical history 02/09 Last Documented On 9 10:55AM ; [facility] Para 3 02/23/2019 Last Documented On 9 10:55AM ; [facility] Result: normal 02/23/2019 Last Documented On 9 10:55AM ; [facility] Result: normal 02/23/2019 Last Documented On 9 10:55AM ; [facility] Sexually active 02/23/2019 Last Documented On 9 10:55AM ; [facility] Family History Includes: Family [...] Documented On 9 2:23PM ; [facility] Codeine Allergy 06/09/2009 Active Last Documented On 9 2:23PM ; [facility] Encounters Encounter Provider Location Date Check-In Time Check-Out Time Diagnosis ENDOMETRIAL BIOPSY ROWAN INGRAM [facility] TECHNICAL SPECIALIST 02/24/20 19 10:30AM 11:05AM Clinical Notes Includes: Clinical Notes from this encounter No Clinical Notes Recorded
--- OUTSIDE RECORDS SUMMARY | 2024-07-13 11:04 | XMS_ITS | Encounter Summary ---
Author Organization [facility] Healthcare Address [address] [place] [address] Care Team Providers Care Environmental Services Technician Name Role Phone Sydney Tompkins NP Primary Care Provider [phone] Sintia Santoyo NP Unavailable [phone] Marlon Cronin MD Unavailable [phone] Davey Myles NP Unavailable [phone] Charlie Mtz MD Primary Care Provider + [phone] Denita Jones RN Unavailable [phone] Encounter Details Date Type Department Care Team (Late st Contact Info) Description 03/14/2020 Telephone [facility] [address] [place] [id number] Marilin Galan RT Social History Tobacco Use [...] on file Legal Sex Female 3:09 PM COTTON CLEANER Gender Identity Not on file Sexual Orientation [...] COVID: Suspected 04/28/2020 04/28/2020 04/28/2020 11:48 PM COTTON CLEANER Respiratory Infection (BRITTNY), contact + droplet Comment:Automatically added due to negative COVID-19 result. 04/28/2020 04/28/2020 05/12/2020 3:0 7 AM COTTON CLEANER Exposure, COVID-19 Comment:Added automatically based on COVID19 lab answers indicating exposure risk 03/10/2021 03/10/2021 03/25/2021 3:[address] COVID: Suspected 03/10/2021 03/10/2021 03/10/2021 4:53 PM COTTON CLEANER COVID: Suspected 03/26/2021 03/26/2021 03/26/2021 10:27 PM COTTON CLEANER COVID: Suspected 10/27/2021 10/27/2021 10/27/2021 11:28 AM CDT COVID19 10/27/2021 10/27/2021 11/06/2021 3:05 AM CDT COVID: Recovered Comment:Added based on recent COVID infection. 11/06/2021 12/03/2021 03/06/2022 3:[address] COVID: Suspected 04/30/2022 04/30/2022 04/30/2022 2:24 PM COTTON CLEANER COVID: Suspected 03/08/2023 03/08/2023 03/08/2023 11:30 AM COTTON CLEANER COVID: Suspected 03/12/2023 03/13/2023 03/13/2023 12:59 AM COTTON CLEANER documented as of this encounter Care Teams Environmental Services Technician Relationship Specialty Start Date End Date Sydney Tompkins NP PCP - General Family Medicine 07/11/18 05/27/21 [place] [address] PCP - General Family Medicine 05/28/21 Sintia Santoyo NP Nurse Practitioner Obstetrics and Gynecology 07/13/18 Marlon Cronin MD Consulting Physician Gastroenterology 07/13/18 10/15/20 Davey Myles NP Nurse Practitioner Family Practice 10/16/20 Denita Jones, RN [address] [place] [address] [address] [place] [address] Crm Developer 03/17/23 04/19/23 documented as of this encounter
--- OUTSIDE RECORDS SUMMARY | 2024-07-13 11:04 | XMS_ITS | Clinical Summary ---
Author Organization [facility]en Address [address] [place] [address] Care Team Providers Care Fourdrinier Machine Operator Name Role Phone Jn Delgado MD Primary Care Provider [phone] Source Comments [facility],non-owned Affiliates and Associated Physician Practices is amultiple site organization consisting of ambulatory clinics and hospital sitesin [place], [place], [place] and [place]. This disclosure is being madepursuant to the Care Everywhere program and may not contain all information available regarding this patient. Last updated 17.[facility] Allergies Active Allergy Reactions Criticality Noted Date Comments Codeine Headache Low 05/11/2016 Tetanus Toxoid Swelling Medium 05/11/2016 Medications * Be aware that medications may not be up to date on this document. Alwaysverify current medications with the patient. Medication Sig Dispensed Refills Start Date End Date Status Kjtkmehdtu-Yldnltpctu-SOPC (TRIBENZOR PO) Active Colesevelam HCl (WELCHOL PO) Active Social History Tobacco Use Types Packs/Day Years Used Date Smoking Tobacco: Never Assessed Sex and Gender Information Value Date Recorded Sex Assigned at Not on file Gender Identity Not on file Sexual Orientation Not on file Last Filed Vital Signs Vital Sign Reading Time Taken Comments Blood Pressure 122/60 05/11/2016 6:05 PM PRODUCT MANAGER Pulse 89 05/11/2016 6:05 PM PRODUCT MANAGER Temperature 37.2 C (99 F) 05/11/2016 6:05 PM PRODUCT MANAGER Respiratory Rate - - Oxygen Saturation - - Inhaled Oxygen Concentration - - Weight 90.7 kg (200 lb) 05/11/2016 6:05 PM PRODUCT MANAGER Height 160 cm (5' 3 ) 05/11/2016 6:05 PM PRODUCT MANAGER Body Mass Index 35.43 05/11/2016 6:05 PM PRODUCT MANAGER Plan of Treatment Health Maintenance Due Date [...] age to complete this topic Care Teams Fourdrinier Machine Operator Relationship Specialty Start Date End Date Jn Delgado MD [address] [place] [address] PCP - General Internal Medicine 05/11/16
--- OUTSIDE RECORDS SUMMARY | 2024-07-13 11:04 | XMS_ITS | Encounter Summary ---
Author Organization [facility] Address [address] [place] [address] Care Team Providers Care Deaf Interpreter Name Role Phone Laz Rodríguez MD Primary Care Provider Jn Mcdonald MD Primary Care Provider [phone] Sydney Tompkins COLLECTIONS AND ARCHIVES DIRECTOR Primary Care Provider [phone] Sydney Tompkins NP Primary Care Provider [phone] Laz Rodríguez MD Unavailable [phone] Jn Mcdonald MD Unavailable [phone] Sydney Tompkins NP Unavailable [phone] Sintia Santoyo COLLECTIONS AND ARCHIVES DIRECTOR Unavailable [phone] Marlon Cronin MD Unavailable [phone] Davey Myles COLLECTIONS AND ARCHIVES DIRECTOR Unavailable [phone] Charlie Mtz MD Primary Care Provider [phone] Denita Jones RN Unavailable [phone] Encounter Details Date Type Department Care Team (Late st Contact Info) Description 02/06/2013 Orders Only [facility] Information Management [address] [place] [address] Scanning, Provider Social History Tobacco Use Types Packs/Day Years Used Date Smoking Tobacco: Never Assessed Alcohol Use Standard Drinks/Week Comments No 0 (1 standard drink = 0.6 oz pur e alcohol) Comments Unknown Sex and Gender Information Value Date Recorded Sex Assigned at Not on file Legal Sex Female 3:09 PM SEAFOOD FISHERMAN Gender Identity Not on file Sexual Orientation [...] COVID: Suspected 02/22/2020 02/22/2020 02/23/2020 5:41 AM SEAFOOD FISHERMAN Respiratory Infection (BRITTNY), contact + droplet Comment:Automatically added due to negative COVID-19 result. 02/23/2020 02/23/2020 03/08/2020 3:0 7 AM SEAFOOD FISHERMAN COVID: Suspected 04/28/2020 04/28/2020 04/28/2020 11:48 PM SEAFOOD FISHERMAN Respiratory Infection (BRITTNY), contact + droplet Comment:Automatically added due to negative COVID-19 result. 04/28/2020 04/28/2020 05/12/2020 3:0 7 AM SEAFOOD FISHERMAN Exposure, COVID-19 Comment:Added automatically based on COVID19 lab answers indicating exposure risk 03/10/2021 03/10/2021 03/25/2021 3:[address] COVID: Suspected 03/10/2021 03/10/2021 03/10/2021 4:53 PM SEAFOOD FISHERMAN COVID: Suspected 03/26/2021 03/26/2021 03/26/2021 10:27 PM SEAFOOD FISHERMAN COVID: Suspected 10/27/2021 10/27/2021 10/27/2021 11:28 AM CDT COVID19 10/27/2021 10/27/2021 11/06/2021 3:05 AM CDT COVID: Recovered Comment:Added based on recent COVID infection. 11/06/2021 12/03/2021 03/06/2022 3:[address] COVID: Suspected 04/30/2022 04/30/2022 04/30/2022 2:24 PM SEAFOOD FISHERMAN COVID: Suspected 03/08/2023 03/08/2023 03/08/2023 11:30 AM SEAFOOD FISHERMAN COVID: Suspected 03/12/2023 03/13/2023 03/13/2023 12:59 AM SEAFOOD FISHERMAN documented as of this encounter Care Teams Deaf Interpreter Relationship Specialty Start Date End Date Laz Rodríguez MD [address] [place] [address] PCP - General 10/15/10 10/21/16 Jn Mcdonald MD [address] [place] [address] PCP - General 10/22/16 06/20/18 Sydney Tompkins NP [address] [place] [address] PCP - General Family Medicine 06/21/18 07/10/18 Sydney Tompkins NP [address] [place] [address] PCP - General Family Medicine 07/11/18 05/27/21 [place] [address] PCP - General Family Medicine 05/28/21 Laz Rodríguez MD [address] [place] [address] 10/22/16 11/21/19 Jn Mcdonald MD [address] [place] [address] 06/21/18 07/10/18 Sydney Tompkins NP [address] [facility] [address] [place] [address] Family Medicine 07/11/18 07/12/18 Sintia Santoyo NP [address] [facility] [address] [place] [address] Nurse Practitioner Obstetrics and Gynecology 07/13/18 Marlon Cronin MD [address] [facility] [address] [place] [address] Consulting Physician Gastroenterology 07/13/18 10/15/20 Davey Myles NP [address] [facility] [address] [place] [address] Nurse Practitioner Family Practice 10/16/20 Denita Jones, RN [address] [place] [address] [address] [place] [address] Vp Corporate Development 03/17/23 04/19/23 documented as of this encounter
--- OUTSIDE RECORDS SUMMARY | 2024-07-13 11:04 | XMS_ITS ---
Author Organization [facility] Address [address] [place] [address] Phone Care Team Providers Care Features Editor Name Role Phone Unavailable Unavailable Unavailable Problems Includes: Active, inactive, and resolved Problems All Visits Onset Date Resolved Date Provider Condition S tatus Chronic Obstructive Pulmonary Disease 11/17/2018 ROWAN A NATALY WHNP-BC Active Last Documented On 9 2:25PM ; [facility] Previous Colposcopy 01/15/2013 ROWAN INGRAM WH SENIOR APPLICATIONS ANALYST-BC Active Last Documented On 3 12:53PM ; [facility] Note: - FAIZAN! HYPERLIPIDEMIA NEC/NOS 01/20/2012 CE BIRCH MD Active Last Documented On 2 3:01PM ; [facility] HYPERTENSION NOS 12/09/2011 CE BIRCH MD Ac tive Last Documented On 2 10:05AM ; [facility] Plan of Treatment Findings Encounter Date Call if any episodes of post menopausal bleeding - assuming bx results from today are WNL. Advised f/u with pcp if right lower quadrant pain recurs - denies today ENDOMETRIAL BIOPSY with ROWAN INGRAM WHNP-BC 02/23/2019 Last Documented On 9 10:55AM ; [facility] Ordered Clinical summary pro vided to patient ENDOMETRIAL BIOPSY with ROWAN INGRAM WHNP-BC 02/23/2019 Last Documented On 9 10:55AM ; [facility] Ordered Clinical summary pro vided to patient ANNUAL DELIVERY RECRUITER EXAM with ROWAN INGRAM WHNP-BC 11/17/2018 Last Documented On 9 2:42PM ; [facility] Ordered Clinical summary pro vided to patient NEW DIELECTRIC EMBOSSING MACHINE OPERATOR EXAM with ROWAN INGRAM [facility]- 11/16/2017 Last Documented On 8 1:10PM ; [facility] Ordered follow-up visit 1 ye ar or as needed NEW DIELECTRIC EMBOSSING MACHINE OPERATOR EXAM with ROWAN INGRAM [facility]-BC 11/16/2017 Last Documented On 8 1:10PM ; [facility] Ordered Clinical summary pro vided to patient ANNUAL WELL WOMEN EXAM with ROWAN INGRAM [facility]- 01/15/2013 Last Documented On 3 1:17PM ; [facility] Ordered follow-up visit 1 ye ar or as needed ANNUAL WELL WOMEN EXAM with ROWAN INGRAM [facility]- 01/15/2013 Last Documented On 3 1:17PM ; [facility] Ordered Clinical summary pro vided to patient COLPOSCOPY with CE BIRCH MD 01/20/2012 Last Documented On 2 3:34PM ; [facility] Instructions to patient Instructions for patient : B reast Self Exam discussed Last Documented On 9 2:01PM ; [facility] Lose weight Last Documented On 9 2:02PM ; [facility] Colonoscopy Handout given to patient Last Documented On 9 2:02PM ; [facility] Instructions for patient : B reast Self Exam discussed Last Documented On 8 12:16PM ; [facility] Lose weight Last Documented On 8 12:17PM ; [facility] Colonoscopy Handout given to patient Last Documented On 8 12:17PM ; [facility] Instructions for patient : B reast Self Exam discussed Last Documented On 3 12:52PM ; [facility] Lose weight Last Documented On 3 12:52PM ; [facility] Colonoscopy Handout given to patient Last Documented On 3 12:52PM ; [facility] Instructions for patient : B reast Self Exam discussed Last Documented On 2 10:05AM ; [facility] Education and Decision Aids were provided during visit for: INFORMED CONSENT DISCUSSION: Endometrial biopsy was discussed in detail including discomfort, insufficient specimen with need to repeat test, and rare incidence of uterine perforation. Patient expressed understanding of the above and consented to the procedure Last Documented On 9 10:32AM ; [facility] Patient Education: Daily rashi cium and vitamin D Last Documented On 9 2:01PM ; [facility] Patient Education: weight be aring exercise Last Documented On 9 2:01PM ; [facility] Smoking cessation advised Last Documented On 9 2:02PM ; [facility] Patient Education: Daily rashi cium and vitamin D Last Documented On 8 12:16PM ; [facility] Patient Education: weight be aring exercise Last Documented On 8 12:16PM ; [facility] Smoking cessation advised Last Documented On 8 12:47PM ; [facility] Patient counseling : discuss ed with patient importance of f/u re: increased risks of cervical cancer Last Documented On 3 1:17PM ; [facility] Patient Education: Daily rashi cium and vitamin D Last Documented On 3 12:52PM ; [facility] Patient Education: weight be aring exercise Last Documented On 3 12:52PM ; [facility] Smoking cessation advised Last Documented On 3 1:06PM ; [facility] INFORMED CONSENT DISCUSSION: Colposcopy was discussed in detail including risk of post procedure bleeding. Patient is not to have intercourse for 5 days following the procedure. Patient expressed understanding of the above and consented to the procedure Last Documented On 2 3:31PM ; [facility] INFORMED CONSENT DISCUSSION: Endometrial biopsy was discussed in detail including discomfort, insufficient specimen with need to repeat test, and rare incidence of uterine perforation. Patient expressed understanding of the above and consented to the procedure Last Documented On 2 3:33PM ; [facility] STD screening offered and de clined Last Documented On 2 10:05AM ; [facility] Bone Mineral Density Screeni ng guidelines reviewed Last Documented On 2 10:05AM ; [facility] Patient Education: Daily rashi cium and vitamin D Last Documented On 2 10:05AM ; [facility] Patient Education: weight be aring exercise Last Documented On 2 10:05AM ; [facility] Colonoscopy screening guidel ale discussed Last Documented On 2 10:05AM ; [facility] Assessments Includes: Assessments for all patient encounters Findings Encounter Date NORMAL FEMALE EXAM ANNUAL DELIVERY RECRUITER EXAM with ROWAN INGRAM [facility]-BC 11/17/2018 Last Documented On 9 2:42PM ; [facility] Screening Malig. Neoplasm Rectum ANNUAL DELIVERY RECRUITER EXAM with ROWAN INGRAM [facility]-BC 11/17/2018 Last Documented On 9 2:42PM ; [facility] NORMAL FEMALE EXAM NEW DIELECTRIC EMBOSSING MACHINE OPERATOR EXAM with ROWAN ROTH ALBERTO [facility]- 11/16/2017 Last Documented On 8 1:10PM ; [facility] Screening Malig. Neoplasm Rectum NEW DIELECTRIC EMBOSSING MACHINE OPERATOR EXAM wi th ROWAN INGRAM [facility]- 11/16/2017 Last Documented On 8 1:10PM ; [facility] NORMAL FEMALE EXAM ANNUAL WELL WOMEN EXAM with Radhika Hopkins NATALY [facility] 01/15/2013 Last Documented On 3 1:17PM ; [facility] Screening Malig. Neoplasm Rectum ANNUAL WELL WOMEN EXAM with ROWAN Hopkins NATALY [facility]- 01/15/2013 Last Documented On 3 1:17PM ; [facility] Assessment of abnormal Pap s mear of cervix COLPOSCOPY with CE BIRCH MD 01/20/2012 Last Documented On 2 3:34PM ; [facility] Assessment of abnormal Pap s mear: atypical glandular cells COLPOSCOPY with CE BIRCH MD 01/20/2012 Last Documented On 2 3:34PM ; [facility] Female pelvic pain NEW DIELECTRIC EMBOSSING MACHINE OPERATOR EXAM with CE KAPADIA MD 12/09/2011 Last Documented On 2 10:36AM ; [facility] Routine pelvic exam NEW DIELECTRIC EMBOSSING MACHINE OPERATOR EXAM with CE SHEPHERD MD 12/09/2011 Last Documented On 2 10:36AM ; [facility] Screening Malig. Neoplasm Rectum NEW DIELECTRIC EMBOSSING MACHINE OPERATOR EXAM wi th CE BIRCH MD 12/09/2011 Last Documented On 2 10:36AM ; [facility] Instructions Includes: Instructions for all patient encounters Instructions to patient Instructions for patient : B reast Self Exam discussed Last Documented On 9 2:01PM ; [facility] Lose weight Last Documented On 9 2:02PM ; [facility] Colonoscopy Handout given to patient Last Documented On 9 2:02PM ; [facility] Instructions for patient : B reast Self Exam discussed Last Documented On 8 12:16PM ; [facility] Lose weight Last Documented On 8 12:17PM ; [facility] Colonoscopy Handout given to patient Last Documented On 8 12:17PM ; [facility] Instructions for patient : B reast Self Exam discussed Last Documented On 3 12:52PM ; [facility] Lose weight Last Documented On 3 12:52PM ; [facility] Colonoscopy Handout given to patient Last Documented On 3 12:52PM ; [facility] Instructions for patient : B reast Self Exam discussed Last Documented On 2 10:05AM ; [facility] Education and Decision Aids were provided during visit for: INFORMED CONSENT DISCUSSION: Endometrial biopsy was discussed in detail including discomfort, insufficient specimen with need to repeat test, and rare incidence of uterine perforation. Patient expressed understanding of the above and consented to the procedure Last Documented On 9 10:32AM ; [facility] Patient Education: Daily rashi cium and vitamin D Last Documented On 9 2:01PM ; [facility] Patient Education: weight be aring exercise Last Documented On 9 2:01PM ; [facility] Smoking cessation advised Last Documented On 9 2:02PM ; [facility] Patient Education: Daily rashi cium and vitamin D Last Documented On 8 12:16PM ; [facility] Patient Education: weight be aring exercise Last Documented On 8 12:16PM ; [facility] Smoking cessation advised Last Documented On 8 12:47PM ; [facility] Patient counseling : discuss ed with patient importance of f/u re: increased risks of cervical cancer Last Documented On 3 1:17PM ; [facility] Patient Education: Daily rashi cium and vitamin D Last Documented On 3 12:52PM ; [facility] Patient Education: weight be aring exercise Last Documented On 3 12:52PM ; [facility] Smoking cessation advised Last Documented On 3 1:06PM ; [facility] INFORMED CONSENT DISCUSSION: Colposcopy was discussed in detail including risk of post procedure bleeding. Patient is not to have intercourse for 5 days following the procedure. Patient expressed understanding of the above and consented to the procedure Last Documented On 2 3:31PM ; [facility] INFORMED CONSENT DISCUSSION: Endometrial biopsy was discussed in detail including discomfort, insufficient specimen with need to repeat test, and rare incidence of uterine perforation. Patient expressed understanding of the above and consented to the procedure Last Documented On 2 3:33PM ; [facility] STD screening offered and de clined Last Documented On 2 10:05AM ; [facility] Bone Mineral Density Screeni ng guidelines reviewed Last Documented On 2 10:05AM ; [facility] Patient Education: Daily rashi cium and vitamin D Last Documented On 2 10:05AM ; [facility] Patient Education: weight be aring exercise Last Documented On 2 10:05AM ; [facility] Colonoscopy screening guideyaz aguilera discussed Last Documented On 2 10:05AM ; [facility] Medical Equipment - Implanted Devices Includes: Current and historical Devices No Medical Equipment Recorded Medications Includes: Current and historical Medications Current Medications (continue as prescribed) Co Q10 100MG Oral Capsule 11/17/2018 Provider: Diagnosis: Last Documented On 9 2:24PM By DESHAWN DOYLE ; [facility] Tribenzor 40-10-25MG Oral Tablet 11/17/2018 Provider : Diagnosis: Last Documented On 9 2:24PM By DESHAWN DOYLE ; [facility] Omeprazole 20MG Oral Tablet Delayed Release 2017 Provider: Diagnosis: Last Documented On 8 12:41PM By DONALDO DOYLE ; [facility] Bystolic 20MG Oral Tablet 11/16/2017 Provider: Diagnosis: Last Documented On 8 12:41PM By DONALDO DOYLE ; [facility] Fetzima 80MG Oral Capsule Extended Release 24 Hour 11/2017 Provider: Diagnosis: Last Documented On 8 12:42PM By DONALDO DOYLE ; [facility] Biotin 5000MCG Oral Capsule 11/16/2017 Provider: Diagnosis: Last Documented On 8 12:42PM By DONALDO DOYLE ; [facility] Fish Oil 1000MG Oral Capsule 11/16/2017 Provider : Diagnosis: Last Documented On 8 12:42PM By DONALDO DOYLE ; [facility] Owjeiindvt-Waihyhxjmb-JIJQ 40-10-25MG Oral Tablet 11/2017 Provider: Diagnosis: Last Documented On 8 12:43PM By DONALDO DOYLE ; [facility] Welchol 625 MG OR TABS 01/15/2013 Provider: Diagnosis: Last Documented On 01/15/2013 1:05PM By DONALDO DOYLE ; [facility] Bystolic 5 MG OR TABS 12/09/2011 Provider: Diagnosis: Last Documented On 12/09/2011 10:03AM By AV CORCORAN ; [facility] Spiriva HandiHaler 18 MCG IN CAPS 12/09/2011 Provide r: Diagnosis: Last Documented On 12/09/2011 10:04AM By AV CORCORAN ; [facility] Past Medications on file Ergocalciferol [id number] Oral Capsule 11/16/2017 - 12/2018 Provider: Diagnosis: Last Documented On 9 2:24PM By DESHAWN DOYLE ; [facility] Tribenzor 40-10-25 MG OR TABS 12/09/2011 - 11/16/2017 Provider: Diagnosis: Last Documented On 8 12:42PM By DONALDO DOYLE ; [facility] Vytorin 10-20 MG OR TABS 12/09/2011 - 01/15/2013 Provi vera: Diagnosis: Last Documented On 01/15/2013 1:05PM By DONALDO DOYLE ; [facility] Keflex 500 MG OR CAPS 01/30/2008 - 02/06/2008 Provider : Diagnosis: Last Documented On 06/09/2009 12:22PM By VIRIDIANA PINTO ; [facility] Medications Administered Includes: Administered Medications in patient's chart No Administered Medications Recorded Results Includes: Results from 07/14/2023 through 07/13/2024 No Results Recorded For Specified Dates History of Present Illness History of Present Illness not supported for this document type No History of Present Illness Recorded Social History Description Last Updated Alcohol use 02/23/2019 Last Documented On 9 10:55AM ; [facility] Cigarette smoking 02/23/2019 Last Documented On 9 10:55AM ; [facility] In monogamous relationship 02/23/2019 Last Documented On 9 10:55AM ; [facility] Not using drugs 02/23/2019 Last Documented On 9 10:55AM ; [facility] 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 Last Documented On 9 10:55AM ; [facility] Sexually active with 1 partners in the l ast year 02/23/2019 Last Documented On 9 10:55AM ; [facility] Smoking status : Current everyday smoker 02/23/2019 Last Documented On 9 10:55AM ; [facility] Social history unchanged 02/23/2019 Last Documented On 9 10:55AM ; [facility] Procedures and Surgical History Surgical History Last Updated Dilation + Curettage 02/23/2019 Last Documented On 9 10:55AM ; [facility] Surgical / procedural history orthroscop ic left knee surg ~d&c ~bile duct 02/23/2019 Last Documented On 9 10:55AM ; [facility] Medical History Includes: Medical History in patient's chart Description Last Updated Last pap smear date 11/17/2018 02/23/2019 Last Documented On 9 10:55AM ; [facility] FREQUENT UTI'S ~D & C 02/23/2019 Last Documented On 9 10:55AM ; [facility] 3 02/23/2019 Last Documented On 9 10:55AM ; [facility] History of a DXA of the lateral lumbar s pine was performed 02/12/2013 02/23/2019 Last Documented On 9 10:55AM ; [facility] History of benign essential hypertension 02/23/2019 Last Documented On 9 10:55AM ; [facility] History of chronic obstructive pulmonary disease 02/23/2019 Last Documented On 9 10:55AM ; [facility] History of complete colonoscopy 2009 Last Documented On 9 10:55AM ; [facility] History of hyperlipidemia 02/23/2019 Last Documented On 9 10:55AM ; [facility] History of menopause lmp more than 5 yrs ago 02/23/2019 Last Documented On 9 10:55AM ; [facility] History of Pap smear done 11/16/201702/09 Last Documented On 9 10:55AM ; [facility] History of screening mammogram was perfo rmed 08/23/2017 02/23/2019 Last Documented On 9 10:55AM ; [facility] LMP: 2003 02/23/2019 Last Documented On 9 10:55AM ; [facility] No recent change in medical history 02/09 Last Documented On 9 10:55AM ; [facility] Para 3 02/23/2019 Last Documented On 9 10:55AM ; [facility] Result: normal 02/23/2019 Last Documented On 9 10:55AM ; [facility] Result: normal 02/23/2019 Last Documented On 9 10:55AM ; [facility] Sexually active 02/23/2019 Last Documented On 9 10:55AM ; [facility] Family History Includes: Family History in patient's chart Description Last Updated Family history unchanged 11/17/2018 Last Documented On 9 2:42PM ; [facility] Maternal history of hypertension mother 11/17/2018 Last Documented On 9 2:42PM ; [facility] Paternal grandmother's histo ry of family history of heart disease pgm-swollen heart 11/17/2018 Last Documented On 9 2:42PM ; [facility] Sororal history of diabetes mellitus sis ter. Mother is borderline 11/17/2018 Last Documented On 9 2:42PM ; [facility] Spouse name: Shayne 01/15/2013 Last Documented On 3 1:17PM ; [facility] Family history of heart disease pgm-swol lindsay heart 01/15/2013 Last Documented On 3 1:17PM ; [facility] Family history of hypertension mother Last Documented On 3 1:17PM ; [facility] Family history of diabetes mellitus sist er. Mother is borderline 12/09/2011 Last Documented On 2 10:36AM ; [facility] Family medical history of high blood pre ssure 06/09/2009 Last Documented On 0 12:27PM ; [facility] Review of Systems Review of Systems not [...] Active Last Documented On 9 2:23PM ; [facility] Codeine Allergy 06/09/2009 Active Last Documented On 9 2:23PM ; [facility] Clinical Notes Includes: Signed Clinical Notes starting from 04/30/2022 No Clinical Notes Recorded
[2024-07-13 12:09] LABS: Basophils Absolute Auto 0.1 K/mm3 (0.0-0.1); Basophils Percent Auto 0.5 % (0.2-1.2); Eosinophils Absolute Auto 0.2 K/mm3 (0-0.3); Eosinophils Percent Auto 1.5 % (0-4.4); Hematocrit 49.9 % (37.0-47.0); Hemoglobin 15.6 g/dL (12.0-15.0); Immature Granulocyte Absolute 0.04 K/mm3 (0.00-0.031); Immature Granulocyte Percent A 0.4 % (0-0.5); Lymphocytes Absolute Auto 1.58 K/mm3 (0.9-3.2); Lymphocytes Percent Auto 16.3 % (18.3-44.2); Mean Corpuscular HGB Conc 31.3 g/dl (32-36); Mean Corpuscular Hemoglobin 27.1 pg (26-34); Mean Corpuscular Volume 86.8 fl (80-100); Mean Platelet Volume 10.1 fl (7.4-10.4); Monocytes Absolute Auto 0.7 K/mm3 (0.1-0.6); Monocytes Percent Auto 7.3 % (2.6-8.5); Neutrophils Absolute Auto 7.2 K/mm3 (1.3-6.7); Platelet Count Result 242 k/mm3 (150-375); Red Blood Count 5.75 M/mm3 (4.2-5.4); Red Cell Distribution Width 15.8 % (11.5-14.5); White Blood Count 9.7 K/mm3 (4.5-10.0)
[2024-07-13 12:12] LABS: Add Urine Microscopic? NO; Appearance Urine Clear (Clear); Bilirubin Urine Negative (Negative); Blood Urine Negative (Negative); Color Urine Yellow (Yellow); Glucose Urine UA Negative (Negative); Ketones Urine Negative (Negative); Leukocyte Esterase Ur Negative LEU/UL (Negative); Nitrate Urine Negative (Negative); Protein Urine Negative (Negative); Specific Grav Ur 1.021 (1.001-1.035); Urobilinogen Urine 0.2 mg/dL (<2.0); pH Urine 5.5 (5.0-9.0)
[2024-07-13 12:23] LABS: Anion Gap 13 mmol/L (4-12); Blood Urea Nitrogen 17 mg/dL (7-17); Calcium 9.2 mg/dL (8.4-10.2); Carbon Dioxide 28 mmol/L (22-30); Chloride 102 mmol/L (98-107); Estimated Glomerular Filt Rate > 60; Glucose 109 mg/dL (65-110); Potassium 3.6 mmol/L (3.4-5.0); Sodium 143 mmol/L (137-145)
== END 2024-07-13 10:32 | disposition home or self-care (01) ==
LOC: ANHSURGERY 10:33
PROVIDERS: PCP Hospitalist; Visit Provider Orthopaedic Surgery
DX: I10 Essential (primary) hypertension (principal); E11.9 Type 2 diabetes mellitus without complications; J44.9 Chronic obstructive pulmonary disease, unspecified; R53.83 Other fatigue
CPT/HCPCS: 36415; 80048; 81003; 85025

== ENCOUNTER 2024-07-24 01:27 | Day surgery (SDC) | payer MEDICARE, OTHER, SELFPAY ==
[2024-07-10 10:23] VITALS: BP 134/65; PULSE 62; RESP 16; TEMP 36.8; O2SAT 97; BMI 36.8
--- NOTE | 2024-07-10 10:53 | PC.NURSE ---
Addendum entered by Marivel Culver RN 07/10/24 15:17: Pt is also to take her am Bystolic the am of surgery, pt was called and reminded. JAZZ Original Note: Report to the Outpatient Waiting Room, entrance under the green pavilion located off [facility], at time _0600am on date _07/24/24 . Planned Procedure Time: ____0730am____.? Time changes happen often and if your time is changed the preop area will call you the afternoon before. - You and your visitor will be asked to self-screen and do not enter if you have any COVID symptoms. Please call surgeon if you need to reschedule. - A mask is optional within the hospital at this time. Patients may have clear liquids (water, carbonated beverages, clear teas, apple juice) until 3 hours prior to surgery with a maximum of 20 ounces. - No food from midnight until time of surgery and no smoking, or chewing tobacco (or any form of nicotine). No chewing gum, candy or mints.(0430am) - Take only the following medications with a SIP of water on the morning of surgery: __Sertaline, Inhalers as directed, Diazepam if needed, _Tylenol if needed DO NOT STOP ANY OF YOUR OTHER PRESCRIPTION MEDICATIONS PRIOR TO SURGERY EXCEPT THE FOLLOWING Hold all vitamins and supplements for 3 days per anesthesiologist. Date to take last dose 07/20/24 Medications to discontinue per physician Aspirin [address] Koch Date to take last dose___07/15/24 Please no make-up, nail romanian, hairspray, perfume, deodorant, or body powder the day of surgery.? No jewelry (including any body piercings) or valuables the day of surgery, leave them at home.? Please take a shower or bath the night before, or the morning of, surgery with an antibacterial soap & HIBICLEANSE-? Wear comfortable, loose fitting clothing.? (Bring w you walker overnight bag, cpap, cell phone and charge), - Jewelry must be removed prior to entering the operating room.? Rings and piercings that are not removed may be cut off. - The hospital will not accept responsibility for valuables.? - Please leave all valuables, including medications, at home the day of surgery. If you are going home after surgery, a licensed delivery route driver must drive you home.? - NO public transportation without another adult if you receive anesthesia. - We recommend that an adult stay with you for 24 hours following discharge. - We also recommend that you do not drive, make important decision, drink alcoholic beverages, or take any drugs that were not prescribed by your health care provider for at least 24 hours after your discharge time. Follow any additional instructions given to you from your surgeon. Telephone instructions given to _Patient and asked if any additional questions and then verbalized understanding. Patient advised to call surgeon office or pre surgery nurse liaison [phone] if any additional questions.
[2024-07-24] VITALS (15 sets, daily range): BP systolic 115–167; BP diastolic 52–78; PULSE 60–74; RESP 12–18; TEMP 36.2–37.4; O2SAT 92–100
--- NOTE | ~2024-07-24 | XR_ITS ---
EXAMINATION: [id number] DATE: 07/24/2024 15:24 CDT INDICATION: Postop right knee arthroplasty TECHNIQUE: 2 views right knee FINDINGS: There is a right total knee arthroplasty in expected position. Subcutaneous gas with fluid and air in the joint and overlying skin marcus are consistent with recent surgery. No evidence of p eriprosthetic fracture. IMPRESSION: 1. Recent right total knee arthroplasty. Reviewed, dictated and finalized at location B.
--- OUTSIDE RECORDS SUMMARY | 2024-07-24 01:31 | XMS_ITS | Clinical Summary ---
Author Organization [facility] Address [address] [place] [address] Phone Care Team Providers Care Swine Extension Field Specialist Name Role Phone Unavailable Unavailable Unavailable Reason for Visit and Chief Complaint [Patient Encounter] Problems Includes: Problems addressed during this encounter and other active Problems All Visits Onset Date Resolved Date Provider Condition S tatus Chronic Obstructive Pulmonary Disease 11/17/2018 ROWAN INGRAM NP-BC Active Last Documented On 9 2:25PM ; [facility] Previous Colposcopy 01/15/2013 ROWAN INGRAM GENERAL HOUSE WORKER-BC Active Last Documented On 3 12:53PM ; [facility] Note: - FAIZAN! HYPERLIPIDEMIA NEC/NOS 01/20/2012 CE BIRCH MD Active Last Documented On 2 3:01PM ; [facility] HYPERTENSION NOS 12/09/2011 CE BIRCH MD Ac tive Last Documented On 2 10:05AM ; [facility] Plan of Treatment No Plan of Treatment Recorded Assessments Includes: Assessments from this encounter No Assessments Recorded Medical Equipment - Implanted Devices Includes: Current Devices No Medical Equipment Recorded Medications Includes: Medications discussed during this encounter and other current Medications Current Medications (continue as prescribed) Co Q10 100MG Oral Capsule 11/17/2018 Provider: Diagnosis: Last Documented On 9 2:24PM By DESHAWN DOYLE ; [facility] Tribenzor 40-10-25MG Oral Tablet 11/17/2018 Provider : Diagnosis: Last Documented On 9 2:24PM By DESHWAN DOYLE ; [facility] Omeprazole 20MG Oral Tablet Delayed Release 2017 Provider: Diagnosis: Last Documented On 8 12:41PM By DONALDO DOYLE ; [facility] Bystolic 20MG Oral Tablet 11/16/2017 Provider: Diagnosis: Last Documented On 8 12:41PM By DONALDO DOYLE ; [facility] Fetzima 80MG Oral Capsule Extended Release 24 Hour 11/2017 Provider: Diagnosis: Last Documented On 8 12:42PM By DONALDO DOYLE ; [facility] Biotin 5000MCG Oral Capsule 11/16/2017 Provider: Diagnosis: Last Documented On 8 12:42PM By DONALDO DOYLE ; [facility] Fish Oil 1000MG Oral Capsule 11/16/2017 Provider : Diagnosis: Last Documented On 8 12:42PM By DONALDO DOYLE ; [facility] Xusizslsju-Roaikwvvou-DKNV 40-10-25MG Oral Tablet 11/2017 Provider: Diagnosis: Last Documented On 8 12:43PM By DONALDO DOYLE ; [facility] Welchol 625 MG OR TABS 01/15/2013 Provider: Diagnosis: Last Documented On 01/15/2013 1:05PM By DONALDO DOYLE ; [facility] Bystolic 5 MG OR TABS 12/09/2011 Provider: Diagnosis: Last Documented On 12/09/2011 10:03AM By AV CORCORAN ; [facility] Spiriva HandiHaler 18 MCG IN CAPS 12/09/2011 Provide r: Diagnosis: Last Documented On 12/09/2011 10:04AM By AV CORCORAN ; [facility] Medications Administered Includes: Administered Medications from [...] Active Last Documented On 9 2:23PM ; [facility] Codeine Allergy 06/09/2009 Active Last Documented On 9 2:23PM ; [facility] Encounters Encounter Provider Location Date Check-In Time Check- Out Time Diagnosis [Patient Encounter] ROWAN INGRAM [facility] MACHINING ASSOCIATE 8 1:43PM 11:59PM Clinical Notes Includes: Clinical Notes from this encounter No Clinical Notes Recorded
--- OUTSIDE RECORDS SUMMARY | 2024-07-24 01:31 | XMS_ITS | Clinical Summary ---
Author Organization [facility] Address [address] [place] [address] Phone Care Team Providers Care Facilities And Grounds Director Name Role Phone Unavailable Unavailable Unavailable Reason for Visit and Chief Complaint gynecologic annual exam - The Chief Complaint is: Annual Problems Includes: Problems addressed during this encounter and other active Problems All Visits Onset Date Resolved Date Provider Condition S tatus Chronic Obstructive Pulmonary Disease 11/17/2018 ROWAN INGRAM NP-BC Active Last Documented On 9 2:25PM ; [facility] Previous Colposcopy 01/15/2013 ROWAN INGRAM BEVERAGE SPECIALIST-BC Active Last Documented On 3 12:53PM ; [facility] Note: - FAIZAN! HYPERLIPIDEMIA NEC/NOS 01/20/2012 CE BIRCH MD Active Last Documented On 2 3:01PM ; [facility] HYPERTENSION NOS 12/09/2011 CE BIRCH MD Ac tive Last Documented On 2 10:05AM ; [facility] Plan of Treatment - Follow-up visit 1 year or as needed - Last Documented On 11/16/2017 1:10PM ; [facility] - Clinical summary provided to patient - Last Documented On 11/16/2017 1:10PM ; [facility] Instructions to patient Instructions for patient : B reast Self Exam discussed Last Documented On 8 12:16PM ; [facility] Lose weight Last Documented On 8 12:17PM ; [facility] Colonoscopy Handout given to patient Last Documented On 8 12:17PM ; [facility] Education and Decision Aids were provided during visit for: Patient Education: Daily rashi cium and vitamin D Last Documented On 8 12:16PM ; [facility] Patient Education: weight be aring exercise Last Documented On 8 12:16PM ; [facility] Smoking cessation advised Last Documented On 8 12:47PM ; [facility] Assessments Includes: Assessments from this encounter Findings - NORMAL FEMALE EXAM - Last Documented On 11/16/2017 1:10PM ; [facility] - Screening Malig. Neoplasm Rectum - Last Documented On 11/16/2017 1:10PM ; [facility] Instructions Includes: Instructions from this encounter Instructions to patient Instructions for patient : B reast Self Exam discussed Last Documented On 8 12:16PM ; [facility] Lose weight Last Documented On 8 12:17PM ; [facility] Colonoscopy Handout given to patient Last Documented On 8 12:17PM ; [facility] Education and Decision Aids were provided during visit for: Patient Education: Daily rashi cium and vitamin D Last Documented On 8 12:16PM ; [facility] Patient Education: weight be aring exercise Last Documented On 8 12:16PM ; [facility] Smoking cessation advised Last Documented On 8 12:47PM ; [facility] Medical Equipment - Implanted Devices Includes: Current Devices No Medical Equipment Recorded Medications Includes: Medications discussed during this encounter and other current Medications Discontinued / Stopped on this date on 12/09/2011 Tribenzor 40-10-25 MG OR TABS Provider: Diagnosis: Last Documented On 8 12:42PM By DONALDO DOYLE ; [facility] Current Medications (continue as prescribed) Co Q10 100MG Oral Capsule 11/17/2018 Provider: Diagnosis: Last Documented On 9 2:24PM By DESHAWN DOYLE ; [facility] Tribenzor 40-10-25MG Oral Tablet 11/17/2018 Provider : Diagnosis: Last Documented On 9 2:24PM By DESHAWN DOYLE ; [facility] Omeprazole 20MG Oral Tablet Delayed Release 2017 Provider: Diagnosis: Last Documented On 8 12:41PM By DONALDO DOYLE ; [facility] Bystolic 20MG Oral Tablet 11/16/2017 Provider: Diagnosis: Last Documented On 8 12:41PM By DONALDO DOYLE ; [facility] Fetzima 80MG Oral Capsule Extended Release 24 Hour 11/2017 Provider: Diagnosis: Last Documented On 8 12:42PM By DONALDO DOYLE ; [facility] Biotin 5000MCG Oral Capsule 11/16/2017 Provider: Diagnosis: Last Documented On 8 12:42PM By DONALDO DOYLE ; [facility] Fish Oil 1000MG Oral Capsule 11/16/2017 Provider : Diagnosis: Last Documented On 8 12:42PM By DONALDO DOYLE ; [facility] Qixlcdfxrr-Tglfixfzue-SUJU 40-10-25MG Oral Tablet 11/2017 Provider: Diagnosis: Last Documented On 8 12:43PM By DONALDO DOYLE ; [facility] Welchol 625 MG OR TABS 01/15/2013 Provider: Diagnosis: Last Documented On 01/15/2013 1:05PM By DONALDO DOYLE ; [facility] Bystolic 5 MG OR TABS 12/09/2011 Provider: Diagnosis: Last Documented On 12/09/2011 10:03AM By AV CORCORAN ; [facility] Spiriva HandiHaler 18 MCG IN CAPS 12/09/2011 Provide r: Diagnosis: Last Documented On 12/09/2011 10:04AM By AV CORCORAN ; [facility] Past Medications on file Keflex 500 MG OR CAPS 01/30/2008 - 02/06/2008 Provider : Diagnosis: Last Documented On 06/09/2009 12:22PM By VIRIDIANA PINTO ; [facility] Medications Administered Includes: Administered Medications from this encounter No Administered Medications Recorded Vital Signs Includes: Vital Signs from this encounter Vital Name 11/16/2017 12:51P Blood Pressure Sitting L 148/70 BP Cuff Size Large Height (in) 62 Weight (lb) 200 Body Mass Index (kg/m2) 36.6 Body Surface Area (m2) 1.9 Last Documented: On 11/16/2017 12:54P M ; [facility] Results Includes: Results discussed during this encounter No Results Recorded For Specified Dates History of Present Illness Includes: History of Present Illness from this encounter HPI PREM GAMBINO is a 62 year old female. - Medication list reviewed - PRIMARY CARE PROVIDER : Dr Turcios Social History Description Last Updated Alcohol use 11/16/2017 Last Documented On 8 1:10PM ; [facility] In monogamous relationship 11/16/2017 Last Documented On 8 1:10PM ; [facility] Non-smoker 11/16/2017 Last Documented On 8 1:10PM ; [facility] Not using drugs 11/16/2017 Last Documented On 8 1:10PM ; [facility] Sexually active with 1 partners in the l ast year 11/16/2017 Last Documented On 8 1:10PM ; [facility] Smoking status : Current everyday smoker 11/16/2017 Last Documented On 8 1:10PM ; [facility] Buddhist affiliation [employer] 8 Last Documented On 8 1:10PM ; [facility] Procedures and Surgical History Includes: Procedures from this encounter Procedures Code Diagnosis Performing Provider Service L ocation Service Date low fat diet Last Documented On 8 12:17PM ; [facility] fecal occult blood test was negative 51467 Last Documented On 8 12:16PM ; [facility] normal history of Pap smear of cervix Last Documented On 8 12:56PM ; [facility] Cervical Pap Smear performed [id number] Last Documented On 8 12:17PM ; [facility] Surgical History Last Updated Surgical / procedural histor y orthroscopic left knee surg ~d&c ~bile duct 11/16/2017 Last Documented On 8 1:10PM ; [facility] Dilation + Curettage 11/16/2017 Last Documented On 8 1:10PM ; [facility] Medical History Includes: Medical History addressed during this encounter Description Last Updated History of complete colonoscopy [address] chaney repeat in 10 years 11/16/2017 Last Documented On 8 1:10PM ; [facility] Result: normal @cne 11/16/2017 Last Documented On 8 1:10PM ; [facility] History of chronic obstructive pulmonary disease 11/16/2017 Last Documented On 8 1:10PM ; [facility] section 11/16/2017 Last Documented On 8 1:10PM ; [facility] Sexually active 11/16/2017 Last Documented On 8 1:10PM ; [facility] Vaginal delivery 11/16/2017 Last Documented On 8 1:10PM ; [facility] History of Pap smear done 01/15/201311/2017 Last Documented On 8 1:10PM ; [facility] History of screening mammogram was perfo rmed 09/201711/16/2017 Last Documented On 8 1:10PM ; [facility] Result: normal 11/16/2017 Last Documented On 8 1:10PM ; [facility] FREQUENT UTI'S ~D & C 11/16/2017 Last Documented On 8 1:10PM ; [facility] 3 11/16/2017 Last Documented On 8 1:10PM ; [facility] History of benign essential hypertension 11/16/2017 Last Documented On 8 1:10PM ; [facility] History of hyperlipidemia 11/16/2017 Last Documented On 8 1:10PM ; [facility] History of menopause lmp more than 5 yrs ago 11/16/2017 Last Documented On 8 1:10PM ; [facility] LMP: 2003 11/16/2017 Last Documented On 8 1:10PM ; [facility] Para 3 11/16/2017 Last Documented On 8 1:10PM ; [facility] Family History Includes: Family History addressed during this encounter Description Last Updated Maternal history of diabetes mellitus si ster, mother 11/16/2017 Last Documented On 8 1:10PM ; [facility] Maternal history of hypertension mother 11/16/2017 Last Documented On 8 1:10PM ; [facility] Paternal history of family history of he art disease father 11/16/2017 Last Documented On 8 1:10PM ; [facility] Review of Systems Includes: Review of Systems [...] Active Last Documented On 9 2:23PM ; [facility] Codeine Allergy 06/09/2009 Active Last Documented On 9 2:23PM ; [facility] Encounters Encounter Provider Location Date Check-In Time Check-Out Time Diagnosis 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 Neoplasm Rectum,Normal Female Exam Clinical Notes Includes: Clinical Notes from this encounter No Clinical Notes Recorded
--- OUTSIDE RECORDS SUMMARY | 2024-07-24 01:31 | XMS_ITS | Clinical Summary ---
Author Organization [facility] Address [address] [place] [address] Phone Care Team Providers Care Sales Inspector Name Role Phone Unavailable Unavailable Unavailable Reason for Visit and Chief Complaint gynecologic procedure : endometrial biopsy - The Chief Complaint is: EMB Problems Includes: Problems addressed during this encounter and other active Problems All Visits Onset Date Resolved Date Provider Condition S tatus Chronic Obstructive Pulmonary Disease 11/17/2018 ROWAN INGRAM NP-BC Active Last Documented On 9 2:25PM ; [facility] Previous Colposcopy 01/15/2013 ROWAN INGRAM BLINDMAKER-BC Active Last Documented On 3 12:53PM ; [facility] Note: - FAIZAN! HYPERLIPIDEMIA NEC/NOS 01/20/2012 CE BIRCH MD Active Last Documented On 2 3:01PM ; [facility] HYPERTENSION NOS 12/09/2011 CE BIRCH MD Ac tive Last Documented On 2 10:05AM ; [facility] Plan of Treatment - Clinical summary provided to patient - Last Documented On 02/23/2019 10:55AM ; [facility] Call if any episodes of post menopausal bleeding - assuming bx results from today are WNL. Advised f/u with pcp if right lower quadrant pain recurs - denies today. - Last Documented On 02/23/2019 10:55AM ; [facility] Education and Decision Aids were provided during visit for: INFORMED CONSENT DISCUSSION: Endometrial biopsy was discussed in detail including discomfort, insufficient specimen with need to repeat test, and rare incidence of uterine perforation. Patient expressed understanding of the above and consented to the procedure Last Documented On 9 10:32AM ; [facility] Assessments Includes: Assessments from this encounter No [...] procedure Last Documented On 9 10:32AM ; [facility] Medical Equipment - Implanted Devices Includes: Current Devices No Medical Equipment Recorded Medications Includes: Medications discussed during this encounter and other current Medications Current Medications (continue as prescribed) Co Q10 100MG Oral Capsule 11/17/2018 Provider: Diagnosis: Last Documented On 9 2:24PM By DESHAWN DOYLE ; [facility] Tribenzor 40-10-25MG Oral Tablet 11/17/2018 Provider : Diagnosis: Last Documented On 9 2:24PM By DESHAWN DOYLE ; [facility] Omeprazole 20MG Oral Tablet Delayed Release 2017 Provider: Diagnosis: Last Documented On 8 12:41PM By DONALDO DOYLE ; [facility] Bystolic 20MG Oral Tablet 11/16/2017 Provider: Diagnosis: Last Documented On 8 12:41PM By DONALDO DOYLE ; [facility] Fetzima 80MG Oral Capsule Extended Release 24 Hour 11/2017 Provider: Diagnosis: Last Documented On 8 12:42PM By DONALDO DOYLE ; [facility] Biotin 5000MCG Oral Capsule 11/16/2017 Provider: Diagnosis: Last Documented On 8 12:42PM By DONALDO DOYLE ; [facility] Fish Oil 1000MG Oral Capsule 11/16/2017 Provider : Diagnosis: Last Documented On 8 12:42PM By DONALDO DOYLE ; [facility] Mlxdmeykue-Kuguzgwppv-YRYS 40-10-25MG Oral Tablet 11/2017 Provider: Diagnosis: Last Documented On 8 12:43PM By DONALDO DOYLE ; [facility] Welchol 625 MG OR TABS 01/15/2013 Provider: Diagnosis: Last Documented On 01/15/2013 1:05PM By DONALDO DOYLE ; [facility] Bystolic 5 MG OR TABS 12/09/2011 Provider: Diagnosis: Last Documented On 12/09/2011 10:03AM By AV CORCORAN ; [facility] Spiriva HandiHaler 18 MCG IN CAPS 12/09/2011 Provide r: Diagnosis: Last Documented On 12/09/2011 10:04AM By AV CORCORAN ; [facility] Past Medications on file Keflex 500 MG OR CAPS 01/30/2008 - 02/06/2008 Provider : Diagnosis: Last Documented On 06/09/2009 12:22PM By VIRIDIANA PINTO ; [facility] Medications Administered Includes: Administered Medications from this encounter No Administered Medications Recorded Vital Signs Includes: Vital Signs from this encounter Vital Name 02/23/2019 10:40A 02/23/2019 10: 33A Blood Pressure Sitting L 130/70 BP Cuff Size Large Height (in) 62 Weight (lb) 190 Body Mass Index (kg/m2) 34.8 Body Surface Area (m2) 1.9 Last Documented: On 02/23/2019 10:40A M ; [facility] On 02/23/2019 10:38AM ; [facility] Results Includes: Results discussed during this encounter No Results Recorded For Specified Dates History of Present Illness Includes: History of Present Illness from this encounter No History of Present Illness Recorded Social History Description Last Updated Alcohol use 02/23/2019 Last Documented On 9 10:55AM ; [facility] Cigarette smoking 02/23/2019 Last Documented On 9 10:55AM ; [facility] In monogamous relationship 02/23/2019 Last Documented On 9 10:55AM ; [facility] Not using drugs 02/23/2019 Last Documented On 9 10:55AM ; [facility] Synagogue affiliation EPISCOPAL 9 Last Documented On 9 10:55AM ; [facility] Sexually active with 1 partners in the l ast year 02/23/2019 Last Documented On 9 10:55AM ; [facility] Smoking status : Current everyday smoker 02/23/2019 Last Documented On 9 10:55AM ; [facility] Social history unchanged 02/23/2019 Last Documented On 9 10:55AM ; [facility] Procedures and Surgical History Includes: Procedures from this encounter Procedures Code Diagnosis Performing Provider Service Location Service Date endometrial biopsy was performed ~Procedure Note: Done without complications.~Amt of Tissue: Scant with 2 passes~Uterine Sound Measurement: Approximately 6 cm after single tooth tenaculum applied to anterior cervix. Excellent hemostasis with silver nitrate x 2 [id number] Last Documented On 9 10:55AM ; [facility] a transvaginal ultrasound of the uterus is chris l [id number] Last Documented On 9 10:32AM ; [facility] no uterine enlargement Last Documented On 9 10:32AM ; [facility] no mass lesion of the uterus Last Documented On 9 10:32AM ; [facility] a transvaginal ultrasound of the ovaries is norm al [id number] Last Documented On 9 10:32AM ; [facility] no enlargement of the right ovary Last Documented On 9 10:32AM ; [facility] no enlargement of the left ovary Last Documented On 9 10:32AM ; [facility] no mass on the right ovary Last Documented On 9 10:32AM ; [facility] no mass on the left ovary Last Documented On 9 10:32AM ; [facility] endometrium thickness 7.0 mm Last Documented On 9 10:32AM ; [facility] the cul-de-sac had no fluid present Last Documented On 9 10:32AM ; [facility] Surgical History Last Updated Dilation + Curettage 02/23/2019 Last Documented On 9 10:55AM ; [facility] Surgical / procedural history orthroscop ic left knee surg ~d&c ~bile duct 02/23/2019 Last Documented On 9 10:55AM ; [facility] Medical History Includes: Medical History addressed during this encounter Description Last Updated Last pap smear date 11/17/2018 02/23/2019 Last Documented On 9 10:55AM ; [facility] FREQUENT UTI'S ~D & C 02/23/2019 Last Documented On 9 10:55AM ; [facility] 3 02/23/2019 Last Documented On 9 10:55AM ; [facility] History of a DXA of the lateral lumbar s pine was performed 02/12/2013 02/23/2019 Last Documented On 9 10:55AM ; [facility] History of benign essential hypertension 02/23/2019 Last Documented On 9 10:55AM ; [facility] History of chronic obstructive pulmonary disease 02/23/2019 Last Documented On 9 10:55AM ; [facility] History of complete colonoscopy 2009 Last Documented On 9 10:55AM ; [facility] History of hyperlipidemia 02/23/2019 Last Documented On 9 10:55AM ; [facility] History of menopause lmp more than 5 yrs ago 02/23/2019 Last Documented On 9 10:55AM ; [facility] History of Pap smear done 11/16/201702/09 Last Documented On 9 10:55AM ; [facility] History of screening mammogram was perfo rmed 08/23/2017 02/23/2019 Last Documented On 9 10:55AM ; [facility] LMP: 2003 02/23/2019 Last Documented On 9 10:55AM ; [facility] No recent change in medical history 02/09 Last Documented On 9 10:55AM ; [facility] Para 3 02/23/2019 Last Documented On 9 10:55AM ; [facility] Result: normal 02/23/2019 Last Documented On 9 10:55AM ; [facility] Result: normal 02/23/2019 Last Documented On 9 10:55AM ; [facility] Sexually active 02/23/2019 Last Documented On 9 10:55AM ; [facility] Family History Includes: Family [...] Active Last Documented On 9 2:23PM ; [facility] Codeine Allergy 06/09/2009 Active Last Documented On 9 2:23PM ; [facility] Encounters Encounter Provider Location Date Check-In Time Check-Out Time Diagnosis ENDOMETRIAL BIOPSY ROWAN INGRAM 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
--- OUTSIDE RECORDS SUMMARY | 2024-07-24 01:32 | XMS_ITS | Clinical Summary ---
Author Organization [facility] Address [address] [place] [address] Phone Care Team Providers Care All Purpose Clerk Name Role Phone Unavailable Unavailable Unavailable Reason for Visit and Chief Complaint DEXASCAN Problems Includes: Problems addressed during this encounter and other active Problems All Visits Onset Date Resolved Date Provider Condition S tatus Chronic Obstructive Pulmonary Disease 11/17/2018 ROWAN INGRAM NP-BC Active Last Documented On 9 2:25PM ; [facility] Previous Colposcopy 01/15/2013 ROWAN INGRAM PSYCHOLOGIST [facility]-BC Active Last Documented On 3 12:53PM ; [facility] Note: - FAIZAN! HYPERLIPIDEMIA NEC/NOS 01/20/2012 CE BIRCH MD Active Last Documented On 2 3:01PM ; [facility] HYPERTENSION NOS 12/09/2011 CE BIRCH MD Ac tive Last Documented On 2 10:05AM ; [facility] Plan of Treatment No Plan of Treatment Recorded Assessments Includes: Assessments from this encounter No Assessments Recorded Medical Equipment - Implanted Devices Includes: Current Devices No Medical Equipment Recorded Medications Includes: Medications discussed during this encounter and other current Medications Current Medications (continue as prescribed) Co Q10 100MG Oral Capsule 11/17/2018 Provider: Diagnosis: Last Documented On 9 2:24PM By DESHAWN DOYLE ; [facility] Tribenzor 40-10-25MG Oral Tablet 11/17/2018 Provider : Diagnosis: Last Documented On 9 2:24PM By DESHAWN DOYLE ; [facility] Omeprazole 20MG Oral Tablet Delayed Release 2017 Provider: Diagnosis: Last Documented On 8 12:41PM By DONALDO DOYLE ; [facility] Bystolic 20MG Oral Tablet 11/16/2017 Provider: Diagnosis: Last Documented On 8 12:41PM By DONALDO DOYLE ; [facility] Fetzima 80MG Oral Capsule Extended Release 24 Hour 11/2017 Provider: Diagnosis: Last Documented On 8 12:42PM By DONALDO DOYLE ; [facility] Biotin 5000MCG Oral Capsule 11/16/2017 Provider: Diagnosis: Last Documented On 8 12:42PM By DONALDO DOYLE ; [facility] Fish Oil 1000MG Oral Capsule 11/16/2017 Provider : Diagnosis: Last Documented On 8 12:42PM By DONALDO DOYLE ; [facility] Qqunoiflop-Qanfxklnin-VAMR 40-10-25MG Oral Tablet 11/2017 Provider: Diagnosis: Last Documented On 8 12:43PM By DONALDO DOYLE ; [facility] Welchol 625 MG OR TABS 01/15/2013 Provider: Diagnosis: Last Documented On 01/15/2013 1:05PM By DONALDO DOYLE ; [facility] Bystolic 5 MG OR TABS 12/09/2011 Provider: Diagnosis: Last Documented On 12/09/2011 10:03AM By AV CORCORAN ; [facility] Spiriva HandiHaler 18 MCG IN CAPS 12/09/2011 Provide r: Diagnosis: Last Documented On 12/09/2011 10:04AM By AV CORCORAN ; [facility] Medications Administered Includes: Administered Medications from [...] Active Last Documented On 9 2:23PM ; [facility] Codeine Allergy 06/09/2009 Active Last Documented On 9 2:23PM ; [facility] Encounters Encounter Provider Location Date Check-In Time Check-Out Time Diagnosis STEPHANIE INGRAM [facility] TIN POT OPERATOR 11/30/2018 9:58AM 10:37AM Clinical Notes Includes: Clinical Notes from this encounter No Clinical Notes Recorded
--- OUTSIDE RECORDS SUMMARY | 2024-07-24 01:32 | XMS_ITS | Encounter Summary ---
Author Organization [facility] Address [address] [place] [id number] Care Team Providers Care Customs Guard Name Role Phone Sintia Santoyo ACADEMY DIRECTOR Unavailable [phone] Davey Myles ACADEMY DIRECTOR Unavailable [phone] Charlie Mtz MD Primary Care Provider [phone] Reason for Visit * Reason Onset Date Comments Medical Question/Miscellaneous 07/09/2024 Encounter Details Date Type Department Care Team (Late st Contact Info) Description 07/09/2024 Telephone Family Physicians [facility] [address] [place] [address] Charlie Mtz MD [address] [place] [id number] Medical Question/Miscellaneous Social History Tobacco Use Types Packs/Day Years Used Date Smoking Tobacco: Former Cigarettes 0.8 28 0 06/25/1993 - 06/25/2021 Smokeless Tobacco: Former Quit: 06/25/2021 Alcohol Use Standard Drinks/Week Comments No 0 (1 standard drink = 0.6 oz pur e alcohol) [facility] Utilities Answer Date Recorded In the past 12 months has [employer], gas, oil, or water [employer] threatened to shut off services in your [...] any clubs o r organizations such as tenriism groups, unions, fraternal or athletic groups, or [...] on file Legal Sex Female 3:09 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 Requesting EKG tracing from April faxed to them at [phone]. Sent as requested. * Telephone Encounter - Stephany Irwin - 07/09/2024 3:04 PM CDT Medical Question/Miscellaneous Caller???s Concern: Tasia calling for EKG to be sent over to [facility] for Patient's appointment tomorrow 07/10/2024 at 10 AM. HYDRATE CONTROL TENDER transferred to the practice. Does message need [...] on filedocumented in this encounter Care Teams Customs Guard Relationship Specialty Start Date End Date Charlie Mtz MD [address] [place] [address] PCP - General Family Medicine 05/28/21 Sintia Santoyo NP Nurse Practitioner Obstetrics and Gynecology 07/13/18 Davey Myles NP Nurse Practitioner Family Practice 10/16/20 documented as of this encounter
--- OUTSIDE RECORDS SUMMARY | 2024-07-24 01:32 | XMS_ITS ---
Care Plan - [facility] Created on: July 24, 2024 PREM GAMBINO : 1955 Sex: Female Author Organization [facility] Address [address] [place] [address] Phone Care Team Providers Care Contracting Analyst Name Role Phone Unavailable Unavailable Unavailable
--- OUTSIDE RECORDS SUMMARY | 2024-07-24 01:32 | XMS_ITS ---
Author Organization [facility] Address [address] [place] [address] Phone Care Team Providers Care Data Processing Systems Project Planner Name Role Phone Unavailable Unavailable Unavailable Problems Includes: Active, inactive, and resolved Problems All Visits Onset Date Resolved Date Provider Condition S tatus Chronic Obstructive Pulmonary Disease 11/17/2018 ROWAN A NATALY WHNP-BC Active Last Documented On 9 2:25PM ; [facility] Previous Colposcopy 01/15/2013 ROWAN INGRAM WH SALON STYLIST-BC Active Last Documented On 3 12:53PM ; [facility] Note: - FAIZAN! HYPERLIPIDEMIA NEC/NOS 01/20/2012 CE BIRCH MD Active Last Documented On 2 3:01PM ; [facility] HYPERTENSION NOS 12/09/2011 CE BIRCH MD Ac tive Last Documented On 2 10:05AM ; [facility] Plan of Treatment Findings Encounter Date Call if any episodes of post menopausal bleeding - assuming bx results from today are WNL. Advised f/u with pcp if right lower quadrant pain recurs - denies today ENDOMETRIAL BIOPSY with ROWAN INGRAM WHNP-BC 02/23/2019 Last Documented On 9 10:55AM ; [facility] Ordered Clinical summary pro vided to patient ENDOMETRIAL BIOPSY with ROWAN INGRAM WHNP-BC 02/23/2019 Last Documented On 9 10:55AM ; [facility] Ordered Clinical summary pro vided to patient ANNUAL SENIOR COGNOS DEVELOPER EXAM with ROWAN INGRAM WHNP-BC 11/17/2018 Last Documented On 9 2:42PM ; [facility] Ordered Clinical summary pro vided to patient NEW ORGAN PIPE FINISHER EXAM with ROWAN INGRAM [facility]- 11/16/2017 Last Documented On 8 1:10PM ; [facility] Ordered follow-up visit 1 ye ar or as needed NEW ORGAN PIPE FINISHER EXAM with ROWAN INGRAM [facility] 11/16/2017 Last Documented On 8 1:10PM ; [facility] Ordered Clinical summary pro vided to patient ANNUAL WELL WOMEN EXAM with ROWAN INGRAM [facility]- 01/15/2013 Last Documented On 3 1:17PM ; [facility] Ordered follow-up visit 1 ye ar or as needed ANNUAL WELL WOMEN EXAM with ROWAN INGRAM [facility]- 01/15/2013 Last Documented On 3 1:17PM ; [facility] Ordered Clinical summary pro vided to patient COLPOSCOPY with CE BIRCH MD 01/20/2012 Last Documented On 2 3:34PM ; [facility] Instructions to patient Instructions for patient : B reast Self Exam discussed Last Documented On 9 2:01PM ; [facility] Lose weight Last Documented On 9 2:02PM ; [facility] Colonoscopy Handout given to patient Last Documented On 9 2:02PM ; [facility] Instructions for patient : B reast Self Exam discussed Last Documented On 8 12:16PM ; [facility] Lose weight Last Documented On 8 12:17PM ; [facility] Colonoscopy Handout given to patient Last Documented On 8 12:17PM ; [facility] Instructions for patient : B reast Self Exam discussed Last Documented On 3 12:52PM ; [facility] Lose weight Last Documented On 3 12:52PM ; [facility] Colonoscopy Handout given to patient Last Documented On 3 12:52PM ; [facility] Instructions for patient : B reast Self Exam discussed Last Documented On 2 10:05AM ; [facility] Education and Decision Aids were provided during visit for: INFORMED CONSENT DISCUSSION: Endometrial biopsy was discussed in detail including discomfort, insufficient specimen with need to repeat test, and rare incidence of uterine perforation. Patient expressed understanding of the above and consented to the procedure Last Documented On 9 10:32AM ; [facility] Patient Education: Daily rashi cium and vitamin D Last Documented On 9 2:01PM ; [facility] Patient Education: weight be aring exercise Last Documented On 9 2:01PM ; [facility] Smoking cessation advised Last Documented On 9 2:02PM ; [facility] Patient Education: Daily rashi cium and vitamin D Last Documented On 8 12:16PM ; [facility] Patient Education: weight be aring exercise Last Documented On 8 12:16PM ; [facility] Smoking cessation advised Last Documented On 8 12:47PM ; [facility] Patient counseling : discuss ed with patient importance of f/u re: increased risks of cervical cancer Last Documented On 3 1:17PM ; [facility] Patient Education: Daily rashi cium and vitamin D Last Documented On 3 12:52PM ; [facility] Patient Education: weight be aring exercise Last Documented On 3 12:52PM ; [facility] Smoking cessation advised Last Documented On 3 1:06PM ; [facility] INFORMED CONSENT DISCUSSION: Colposcopy was discussed in detail including risk of post procedure bleeding. Patient is not to have intercourse for 5 days following the procedure. Patient expressed understanding of the above and consented to the procedure Last Documented On 2 3:31PM ; [facility] INFORMED CONSENT DISCUSSION: Endometrial biopsy was discussed in detail including discomfort, insufficient specimen with need to repeat test, and rare incidence of uterine perforation. Patient expressed understanding of the above and consented to the procedure Last Documented On 2 3:33PM ; [facility] STD screening offered and de clined Last Documented On 2 10:05AM ; [facility] Bone Mineral Density Screeni ng guidelines reviewed Last Documented On 2 10:05AM ; [facility] Patient Education: Daily rashi cium and vitamin D Last Documented On 2 10:05AM ; [facility] Patient Education: weight be aring exercise Last Documented On 2 10:05AM ; [facility] Colonoscopy screening guidel ale discussed Last Documented On 2 10:05AM ; [facility] Assessments Includes: Assessments for all patient encounters Findings Encounter Date NORMAL FEMALE EXAM ANNUAL SENIOR COGNOS DEVELOPER EXAM with ROWAN INGRAM [facility] 11/17/2018 Last Documented On 9 2:42PM ; [facility] Screening Malig. Neoplasm Rectum ANNUAL SENIOR COGNOS DEVELOPER EXAM with ROWAN INGRAM [facility] 11/17/2018 Last Documented On 9 2:42PM ; [facility] NORMAL FEMALE EXAM NEW ORGAN PIPE FINISHER EXAM with ROWAN ROTH ALBERTO [facility]- 11/16/2017 Last Documented On 8 1:10PM ; [facility] Screening Malig. Neoplasm Rectum NEW ORGAN PIPE FINISHER EXAM wi th ROWAN INGRAM [facility]- 11/16/2017 Last Documented On 8 1:10PM ; [facility] NORMAL FEMALE EXAM ANNUAL WELL WOMEN EXAM with Radhika Hopkins NATALY [facility] 01/15/2013 Last Documented On 3 1:17PM ; [facility] Screening Malig. Neoplasm Rectum ANNUAL WELL WOMEN EXAM with ROWAN Hopkins NATALY [facility]- 01/15/2013 Last Documented On 3 1:17PM ; [facility] Assessment of abnormal Pap s mear of cervix COLPOSCOPY with CE BIRCH MD 01/20/2012 Last Documented On 2 3:34PM ; [facility] Assessment of abnormal Pap s mear: atypical glandular cells COLPOSCOPY with CE BIRCH MD 01/20/2012 Last Documented On 2 3:34PM ; [facility] Female pelvic pain NEW ORGAN PIPE FINISHER EXAM with CE KAPADIA MD 12/09/2011 Last Documented On 2 10:36AM ; [facility] Routine pelvic exam NEW ORGAN PIPE FINISHER EXAM with CE SHEPHERD MD 12/09/2011 Last Documented On 2 10:36AM ; [facility] Screening Malig. Neoplasm Rectum NEW ORGAN PIPE FINISHER EXAM wi th CE BIRCH MD 12/09/2011 Last Documented On 2 10:36AM ; [facility] Instructions Includes: Instructions for all patient encounters Instructions to patient Instructions for patient : B reast Self Exam discussed Last Documented On 9 2:01PM ; [facility] Lose weight Last Documented On 9 2:02PM ; [facility] Colonoscopy Handout given to patient Last Documented On 9 2:02PM ; [facility] Instructions for patient : B reast Self Exam discussed Last Documented On 8 12:16PM ; [facility] Lose weight Last Documented On 8 12:17PM ; [facility] Colonoscopy Handout given to patient Last Documented On 8 12:17PM ; [facility] Instructions for patient : B reast Self Exam discussed Last Documented On 3 12:52PM ; [facility] Lose weight Last Documented On 3 12:52PM ; [facility] Colonoscopy Handout given to patient Last Documented On 3 12:52PM ; [facility] Instructions for patient : B reast Self Exam discussed Last Documented On 2 10:05AM ; [facility] Education and Decision Aids were provided during visit for: INFORMED CONSENT DISCUSSION: Endometrial biopsy was discussed in detail including discomfort, insufficient specimen with need to repeat test, and rare incidence of uterine perforation. Patient expressed understanding of the above and consented to the procedure Last Documented On 9 10:32AM ; [facility] Patient Education: Daily rashi cium and vitamin D Last Documented On 9 2:01PM ; [facility] Patient Education: weight be aring exercise Last Documented On 9 2:01PM ; [facility] Smoking cessation advised Last Documented On 9 2:02PM ; [facility] Patient Education: Daily rashi cium and vitamin D Last Documented On 8 12:16PM ; [facility] Patient Education: weight be aring exercise Last Documented On 8 12:16PM ; [facility] Smoking cessation advised Last Documented On 8 12:47PM ; [facility] Patient counseling : discuss ed with patient importance of f/u re: increased risks of cervical cancer Last Documented On 3 1:17PM ; [facility] Patient Education: Daily rashi cium and vitamin D Last Documented On 3 12:52PM ; [facility] Patient Education: weight be aring exercise Last Documented On 3 12:52PM ; [facility] Smoking cessation advised Last Documented On 3 1:06PM ; [facility] INFORMED CONSENT DISCUSSION: Colposcopy was discussed in detail including risk of post procedure bleeding. Patient is not to have intercourse for 5 days following the procedure. Patient expressed understanding of the above and consented to the procedure Last Documented On 2 3:31PM ; [facility] INFORMED CONSENT DISCUSSION: Endometrial biopsy was discussed in detail including discomfort, insufficient specimen with need to repeat test, and rare incidence of uterine perforation. Patient expressed understanding of the above and consented to the procedure Last Documented On 2 3:33PM ; [facility] STD screening offered and de clined Last Documented On 2 10:05AM ; [facility] Bone Mineral Density Screeni ng guidelines reviewed Last Documented On 2 10:05AM ; [facility] Patient Education: Daily rashi cium and vitamin D Last Documented On 2 10:05AM ; [facility] Patient Education: weight be aring exercise Last Documented On 2 10:05AM ; [facility] Colonoscopy screening guideyaz aguilera discussed Last Documented On 2 10:05AM ; [facility] Medical Equipment - Implanted Devices Includes: Current and historical Devices No Medical Equipment Recorded Medications Includes: Current and historical Medications Current Medications (continue as prescribed) Co Q10 100MG Oral Capsule 11/17/2018 Provider: Diagnosis: Last Documented On 9 2:24PM By DESHAWN DOYLE ; [facility] Tribenzor 40-10-25MG Oral Tablet 11/17/2018 Provider : Diagnosis: Last Documented On 9 2:24PM By DESHAWN DOYLE ; [facility] Omeprazole 20MG Oral Tablet Delayed Release 2017 Provider: Diagnosis: Last Documented On 8 12:41PM By DONALDO DOYLE ; [facility] Bystolic 20MG Oral Tablet 11/16/2017 Provider: Diagnosis: Last Documented On 8 12:41PM By DONALDO DOYLE ; [facility] Fetzima 80MG Oral Capsule Extended Release 24 Hour 11/2017 Provider: Diagnosis: Last Documented On 8 12:42PM By DONALDO DOYLE ; [facility] Biotin 5000MCG Oral Capsule 11/16/2017 Provider: Diagnosis: Last Documented On 8 12:42PM By DONALDO DOYLE ; [facility] Fish Oil 1000MG Oral Capsule 11/16/2017 Provider : Diagnosis: Last Documented On 8 12:42PM By DONALDO DOYLE ; [facility] Csfxfhkret-Aaqjlmpops-LFHB 40-10-25MG Oral Tablet 11/2017 Provider: Diagnosis: Last Documented On 8 12:43PM By DONALDO DOYLE ; [facility] Welchol 625 MG OR TABS 01/15/2013 Provider: Diagnosis: Last Documented On 01/15/2013 1:05PM By DONALDO DOYLE ; [facility] Bystolic 5 MG OR TABS 12/09/2011 Provider: Diagnosis: Last Documented On 12/09/2011 10:03AM By AV CORCORAN ; [facility] Spiriva HandiHaler 18 MCG IN CAPS 12/09/2011 Provide r: Diagnosis: Last Documented On 12/09/2011 10:04AM By AV CORCORAN ; [facility] Past Medications on file Ergocalciferol [id number] Oral Capsule 11/16/2017 - 12/2018 Provider: Diagnosis: Last Documented On 9 2:24PM By DESHAWN DOYLE ; [facility] Tribenzor 40-10-25 MG OR TABS 12/09/2011 - 11/16/2017 Provider: Diagnosis: Last Documented On 8 12:42PM By DONALDO DOYLE ; [facility] Vytorin 10-20 MG OR TABS 12/09/2011 - 01/15/2013 Provi vera: Diagnosis: Last Documented On 01/15/2013 1:05PM By DONALDO DOYLE ; [facility] Keflex 500 MG OR CAPS 01/30/2008 - 02/06/2008 Provider : Diagnosis: Last Documented On 06/09/2009 12:22PM By VIRIDIANA PINTO ; [facility] Medications Administered Includes: Administered Medications in patient's chart No Administered Medications Recorded Results Includes: Results from 07/25/2023 through 07/24/2024 No Results Recorded For Specified Dates History of Present Illness History of Present Illness not supported for this document type No History of Present Illness Recorded Social History Description Last Updated Alcohol use 02/23/2019 Last Documented On 9 10:55AM ; [facility] Cigarette smoking 02/23/2019 Last Documented On 9 10:55AM ; [facility] In monogamous relationship 02/23/2019 Last Documented On 9 10:55AM ; [facility] Not using drugs 02/23/2019 Last Documented On 9 10:55AM ; [facility] Catholic affiliation AMISH 9 Last Documented On 9 10:55AM ; [facility] Sexually active with 1 partners in the l ast year 02/23/2019 Last Documented On 9 10:55AM ; [facility] Smoking status : Current everyday smoker 02/23/2019 Last Documented On 9 10:55AM ; [facility] Social history unchanged 02/23/2019 Last Documented On 9 10:55AM ; [facility] Procedures and Surgical History Surgical History Last Updated Dilation + Curettage 02/23/2019 Last Documented On 9 10:55AM ; [facility] Surgical / procedural history orthroscop ic left knee surg ~d&c ~bile duct 02/23/2019 Last Documented On 9 10:55AM ; [facility] Medical History Includes: Medical History in patient's chart Description Last Updated Last pap smear date 11/17/2018 02/23/2019 Last Documented On 9 10:55AM ; [facility] FREQUENT UTI'S ~D & C 02/23/2019 Last Documented On 9 10:55AM ; [facility] 3 02/23/2019 Last Documented On 9 10:55AM ; [facility] History of a DXA of the lateral lumbar s pine was performed 02/12/2013 02/23/2019 Last Documented On 9 10:55AM ; [facility] History of benign essential hypertension 02/23/2019 Last Documented On 9 10:55AM ; [facility] History of chronic obstructive pulmonary disease 02/23/2019 Last Documented On 9 10:55AM ; [facility] History of complete colonoscopy 2009 Last Documented On 9 10:55AM ; [facility] History of hyperlipidemia 02/23/2019 Last Documented On 9 10:55AM ; [facility] History of menopause lmp more than 5 yrs ago 02/23/2019 Last Documented On 9 10:55AM ; [facility] History of Pap smear done 11/16/201702/09 Last Documented On 9 10:55AM ; [facility] History of screening mammogram was perfo rmed 08/23/2017 02/23/2019 Last Documented On 9 10:55AM ; [facility] LMP: 2003 02/23/2019 Last Documented On 9 10:55AM ; [facility] No recent change in medical history 02/09 Last Documented On 9 10:55AM ; [facility] Para 3 02/23/2019 Last Documented On 9 10:55AM ; [facility] Result: normal 02/23/2019 Last Documented On 9 10:55AM ; [facility] Result: normal 02/23/2019 Last Documented On 9 10:55AM ; [facility] Sexually active 02/23/2019 Last Documented On 9 10:55AM ; [facility] Family History Includes: Family History in patient's chart Description Last Updated Family history unchanged 11/17/2018 Last Documented On 9 2:42PM ; [facility] Maternal history of hypertension mother 11/17/2018 Last Documented On 9 2:42PM ; [facility] Paternal grandmother's histo ry of family history of heart disease pgm-swollen heart 11/17/2018 Last Documented On 9 2:42PM ; [facility] Sororal history of diabetes mellitus sis ter. Mother is borderline 11/17/2018 Last Documented On 9 2:42PM ; [facility] Spouse name: Shayne 01/15/2013 Last Documented On 3 1:17PM ; [facility] Family history of heart disease pgm-swol lindsay heart 01/15/2013 Last Documented On 3 1:17PM ; [facility] Family history of hypertension mother Last Documented On 3 1:17PM ; [facility] Family history of diabetes mellitus sist er. Mother is borderline 12/09/2011 Last Documented On 2 10:36AM ; [facility] Family medical history of high blood pre ssure 06/09/2009 Last Documented On 0 12:27PM ; [facility] Review of Systems Review of Systems not [...] Active Last Documented On 9 2:23PM ; [facility] Codeine Allergy 06/09/2009 Active Last Documented On 9 2:23PM ; [facility] Clinical Notes Includes: Signed Clinical Notes starting from 04/30/2022 No Clinical Notes Recorded
--- OUTSIDE RECORDS SUMMARY | 2024-07-24 01:32 | XMS_ITS | Referral Summary ---
Author Organization [facility] Virtual Care Address [address] [place] [phone] Phone Care Team Providers Care Family Readiness Support Assistant Name Role Phone Sintia Santoyo GENERAL MERCHANDISE MANAGER Unavailable [phone] Davey Myles GENERAL MERCHANDISE MANAGER Unavailable [phone] Charlie Mtz MD Primary Care Provider [phone] Encounters Date Type Department Care Team Description 07/17/2024 1:00 PM CDT Office Visit [facility] Primary Care at [address] [place] [phone] Michell Burgos NP Otalgia, left ear (Primary Dx) 07/10/2024 Nurse Triage [facility] [address] [phone] Charlie Mtz MD 07/10/2024 4:00 PM CDT Office Visit [facility] [address] [phone] Ellie Wright NP Acute non-recurrent maxillary sinusitis (Primary Dx); Acute diffuse otitis externa of left ear; Class 2 severe obesity due to excess calories with serious comorbidity and body mass index (BMI) of 39.0 to 39.9 in adult (HCC) 07/10/2024 Nurse Triage [facility] [address] [phone] Charlie Mtz MD 07/09/2024 Telephone [facility] [address] [phone] Charlie Mtz MD Medical Question/Miscellaneo us 06/21/2024 Telephone [facility] [address] [phone] Charlie Mtz MD Forms Request 06/05/2024 Telephone [facility] [address] [phone] Charlie Mtz MD 05/31/2024 Telephone [facility] [address] [phone] Charlie Mtz MD Medical Records Request 05/31/2024 Telephone [facility] [address] [phone] Charlie Mtz MD Test Results 05/11/2024 1:02 PM COORDINATOR OF PLACEMENT - 05/11/2024 11:59 PM COORDINATOR OF PLACEMENT Hospital Encounter [facility] [address] [place] [address] Essential (primary) hypertension Discharge Disposition: Discharge to home or self care 05/11/2024 10:00 AM COORDINATOR OF PLACEMENT Lab [facility] [address] [place] [phone] 04/25/2024 Telephone [facility] Orthopedics [facility] Sports Medicine [address] [facility] [address] [place] [phone] Shona Hauser MA from Last 3 Months Allergies Active Allergy Reactions Criticality Noted Date Comments Atorvastatin Muscle pain Medium 04/18/2019 Codeine Agitation Low Tetanus Vaccines And Toxoid Other (See comments) Low Local reaction Medications diazePAM (VALIUM) 2 mg tablet Take 1 tablet (2 mg total) by mouth every 6 (six) hours as needed for anxiety 15 tablet 06/10/19 23 Active Additional Information Patient taking differently:2 mg oral Every 6 hours PRN, anxiety,Taking 1/2 tab, Reported on 07/17/2024 meloxicam (MOBIC) 7.5 mg tablet Take 1 [...] NEEDED 90 capsule 1 06/22/19 25 Active sertraline (ZOLOFT) 50 mg tablet Take 2 tablets (100mg total) by mouth every day 180 tablet 2 06/29/19 25 Active biotin 1 mg tablet Take 1 tablet (1,000 mcg total) by mouth daily 025 Discontinued(Kevyn avery Reported) aspirin 81 mg enteric coated tablet Take 1 tablet (81 mg total) by mouth daily 025 Discontinued(Kevyn avery Reported) UNABLE TO FIND [employer] Collagen 025 Discontinued(Kevyn avery Reported) UNABLE TO FIND Tu Trim fit 025 Discontinued(Kevyn avery Reported) cholecalcifer ol (VITAMIN D-3) 2000 unit capsule Take 1 capsule (2,000 Units total) by mouth daily 60 capsule 3 12/16/19 23 025 Discontinued(Kevyn senant Reported) sertraline (ZOLOFT) 50 mg tablet TAKE ONE TABLET BY MOUTH EVERY DAY FOR 14 DAYS, THEN TAKE TWO TABLETS EVERY DAY 166 tablet 06/22/19 25 025 Discontinued potassium chloride ER (KLOR-CON) 10 mEq CR tablet Take 1 tablet/capsule (10 mEq total) by mouth 2 (two) times a day 180 tablet/caps ule 3 06/22/19 25 025 Discontinued(Kevyn avery Reported) ciprofloxacin -dexAMETHason e (CIPRODEX) otic suspensionInd ications:Acut e diffuse otitis externa of left ear Administer 4 drops into the left ear 2 (two) times a day 7.5 mL 07/11/19 25 025 Discontinued(Th erapy completed) cephalexin (KEFLEX) 500 mg capsuleIndica tions:Acute non-recurrent maxillary sinusitis Take 1 capsule (500 mg total) by mouth 2 (two) times a day for 7 days 14 capsule 07/11/19 25 025 Discontinued(Kevyn avery Reported) Active Problems Problem Noted Date Diagnosed Date Otalgia, left ear 07/17/2024 Assessment & Plan (07/17/2024 1:28 PM CDT): No left inner ear infection or outer ear infection today. There is a dark hair noted in the ear, but no redness noted anywhere. Okay to use Tylenol as needed. Okay to stop the ear drops, as she had a few days left of it. Patient just finished cephalexin. Can use an ice pack or heating pad if needed. Degenerative disc disease, cervical 06/17/2022 Degenerative cervical [...] loss Assessment & Plan (06/16/2023 1:29 PM COORDINATOR OF PLACEMENT): Stable, generally well controlled, patient reports no [...] control Assessment & Plan (05/28/2021 1:00 PM COORDINATOR OF PLACEMENT): Not well controlled, encouraged patient continue to [...] options Assessment & Plan (06/16/2023 1:30 PM COORDINATOR OF PLACEMENT): Stable, well controlled, improving; patient reports she is more physically active, engaging in social activities, re-engage with yazdanism Would like to decrease Zoloft given vivid [...] 02/22/2020 Assessment & Plan (02/22/2020 12:16 PM COORDINATOR OF PLACEMENT): Small patch of atopic dermatitis on mid [...] today. Assessment & Plan (04/17/2019 2:34 PM COORDINATOR OF PLACEMENT): Repeat CBC in 2 weeks. She was previously taking steroids during her ED visit which may have falsely elevated her white blood count. Vitamin D deficiency 04/17/2019 Assessment & Plan (02/22/2020 9:32 AM COORDINATOR OF PLACEMENT): Last vitamin d level 12/07/2019 52. Recommend vitamin d3 2000 international units once daily. Assessment & Plan (11/24/2019 3:46 PM CDT): Continue vitamin d2 50,000 International units once weekly and repeat vitamin d level today. Assessment & Plan (04/17/2019 2:34 PM COORDINATOR OF PLACEMENT): [place] [address] units once weekly. Get vitamin-D level in 2 weeks with labs. High risk of cardiac event 04/17/2019 Assessment & Plan (09/02/2022 4:40 PM CDT): Stable, well controlled; continue pravastatin 40 mg daily; continue ASA 81 mg daily Encourage risk modifications Assessment & Plan (04/17/2019 2:34 PM COORDINATOR OF PLACEMENT): Patient's ASCVD risk score is 13.3%. I recommended that she be on statin instead of bile acid sequestrant for CV prophylaxis. Start atorvastatin 10 mg daily. Mixed hyperlipidemia 04/17/2019 Assessment & Plan (12/19/2023 10:41 AM CDT): Chronic, stable, well controlled Continue Pravastatin 40 mg daily Assessment & Plan (06/16/2023 1:29 PM COORDINATOR OF PLACEMENT): Stable, well controlled, lipids in optimal range Continue pravastatin 40 mg daily Assessment & Plan (06/09/2022 4:56 PM COORDINATOR OF PLACEMENT): Well controlled, lipids at target Continue pravastatin 40 mg nightly Assessment & Plan (12/15/2021 4:59 PM CDT): Stable, well controlled; continue pravastatin 40 mg nightly Assessment & Plan (09/08/2021 2:06 PM CDT): Stable, generally well controlled; continue pravastatin 40 mg nightly Assessment & Plan (07/09/2021 11:01 AM CDT): Stable, well controlled; continue pravastatin 40 mg nightly Assessment & Plan (05/28/2021 12:58 PM COORDINATOR OF PLACEMENT): Stable, well controlled last lipid panel demonstrated normal total cholesterol, LDL mildly elevated 114; continue to monitor encourage low-fat high-fiber diet Continue pravastatin 40 mg daily Assessment & Plan (11/30/2020 1:37 PM CDT): Lipids are well controlled on pravastatin 40 mg once daily. Assessment & Plan (02/22/2020 12:13 PM COORDINATOR OF PLACEMENT): Lipids are well controlled on pravastatin 40 mg once daily. Assessment & Plan (11/24/2019 3:43 PM CDT): Continue pravastatin 40 mg daily. Repeat lipid profile today. Recommended Mediterranean diet. Do not think keto diet facilitates a heart healthy diet. Assessment & Plan (09/07/2019 1:31 PM CDT): Continue pravastatin 40 mg daily. Repeat lipid profile in November. Assessment & Plan (04/17/2019 2:35 PM COORDINATOR OF PLACEMENT): Lipid abnormalities are unchanged. Nutritional counseling was [...] visit; 124/76 Continue Bystolic 20 mg and Hjzuojjqxb-whrmfxlefw-VQVW 40-10-25 mg daily Assessment & Plan (08/08/2023 1:14 PM CDT): Stable, well controlled; blood pressure goals; continue Bystolic 20 mg daily, phmhwqqqna-chphdkxwrt-zkehmonzsgdgsjjfqsh 40-10-25 mg Assessment & Plan (06/16/2023 1:29 PM COORDINATOR OF PLACEMENT): Stable, well controlled, blood pressure at goal; patient reports no chest pain or headaches Continue Bystolic 20 mg daily, elxddovscu-fmnwjmhjcs-bwsetqgzoksducblyuk 40-10-251 tablet daily; Assessment & Plan (09/02/2022 4:39 PM CDT): Stable, well controlled; blood pressure at target No chest pain or headaches Continue Bystolic 20 mg daily, Tribenzor 40-10-251 tablet daily Assessment & Plan (06/09/2022 4:57 PM COORDINATOR OF PLACEMENT): Stable, blood pressure at target Continue Tribenzor [...] daily Assessment & Plan (05/28/2021 12:59 PM COORDINATOR OF PLACEMENT): Stable, generally well controlled; blood pressure mildly [...] appointment. Assessment & Plan (02/22/2020 12:14 PM COORDINATOR OF PLACEMENT): Hypertension is improved. Continue current treatment regimen. [...] appointment. Assessment & Plan (04/17/2019 2:32 PM COORDINATOR OF PLACEMENT): Hypertension is improving with treatment. Continue current [...] cessation Assessment & Plan (05/28/2021 1:02 PM COORDINATOR OF PLACEMENT): Patient continues to smoke, smoking about 1 pack per day Encouraged patient to continue to work towards complete cessation Patient understands importance of smoking, but is not yet gotten to change mind set Assessment & Plan (11/30/2020 1:39 PM CDT): Encourage smoking cessation. Assessment & Plan (02/22/2020 12:12 PM COORDINATOR OF PLACEMENT): Encourage smoking cessation. Had quit for almost [...] phone. Assessment & Plan (04/17/2019 2:33 PM COORDINATOR OF PLACEMENT): Encourage smoking cessation. Assessment & Plan (11/15/2018 [...] A1c was 6.9; encourage low-carbohydrate diet Continue Leanta 5 mg daily Assessment & Plan (06/09/2022 4:59 PM COORDINATOR OF PLACEMENT): Stable, last A1c was 6.2; at target [...] daily Assessment & Plan (05/28/2021 12:59 PM COORDINATOR OF PLACEMENT): Continue to monitor, check A1c to evaluate blood sugars are continue to elevate Continue Tradjenta 5 mg Assessment & Plan (11/30/2020 1:38 PM CDT): A1c today Continue Tradjenta 5 mg once daily. Assessment & Plan (02/22/2020 12:13 PM COORDINATOR OF PLACEMENT): A1c well controlled at 6.3. Continue Tradjenta 5 mg once daily. Assessment & Plan (11/24/2019 3:45 PM CDT): Patient on Tradjenta 5 mg daily. Continue medication and diet lifestyle modifications. Assessment & Plan (04/17/2019 2:32 PM COORDINATOR OF PLACEMENT): Patient on Tradjenta 5 mg daily. A1c [...] daily Assessment & Plan (06/09/2022 4:58 PM COORDINATOR OF PLACEMENT): Stable, improving, quit smoking June 25, 2021; [...] dyspnea, though does report decreased insurance and usp Discussed with patient importance of continued activity and exercise in order to maintain pulmonary help Congratulated patient on smoking cessation will continue Spiriva 18 mcg daily Assessment & Plan (05/28/2021 1:01 PM COORDINATOR OF PLACEMENT): Stable, generally well controlled; patient has few [...] p.r.n. Assessment & Plan (02/22/2020 12:16 PM COORDINATOR OF PLACEMENT): COPD is worsening. Discussed monitoring symptoms and [...] steroids. Assessment & Plan (04/17/2019 2:32 PM COORDINATOR OF PLACEMENT): COPD is improving with treatment. Discussed monitoring [...] levels Assessment & Plan (06/09/2022 4:58 PM COORDINATOR OF PLACEMENT): Not well controlled, patient reports symptoms beginning worse; patient reports episodes of agoraphobia; worry about leaving house due to concerns for panic attacks Patient every 6 months ago; continues to have grief related to also Refer to ANIMAL CRUELTY INVESTIGATOR for individual counseling Continue sertraline 100 mg daily; start diazepam 2 mg p.r.n. for panic attacks Assessment & Plan (05/28/2021 1:01 PM COORDINATOR OF PLACEMENT): Not well controlled, patient has multiple recent [...] 07/12/2018 Assessment & Plan (06/16/2023 1:30 PM COORDINATOR OF PLACEMENT): Not well controlled, has been having some difficulty; recently neighbor mode throwing up significant amounts of dust which worsened her symptoms Hoarse voice and nasal changes in swelling, especially morning Continue daily antihistamine, continue Flonase 2 sprays 1-2 times daily Assessment & Plan (12/15/2021 5:00 PM CDT): Generally stable; patient reports symptoms, on-off Continue djbs-nlr-ktwapch antihistamine; Flonase 2 sprays each nostril daily [...] (08/05/2020): Added automatically from request for surgery [id number] Assessment & Plan (09/09/2020 5:51 PM CDT): [...] up. Assessment & Plan (05/19/2020 4:51 PM COORDINATOR OF PLACEMENT): Noted from recent urinalysis. Will repeat urinalysis to better evaluate her urine. Upper abdominal pain 05/08/2020 021 Overview (05/08/2020): Added automatically from request for surgery [id number] Assessment & Plan (05/19/2020 4:51 PM COORDINATOR OF PLACEMENT): Patient has chronic intermittent upper abdominal pain [...] 11/30/2020 Assessment & Plan (02/22/2020 12:13 PM COORDINATOR OF PLACEMENT): Patient has a new cough over the last 1 week. I recommended testing for COVID - 19 considering her new symptoms. Reviewed self isolation procedures. Referral for testing placed today. Abnormal feces 05/10/2019 12/19/2023 Overview (05/10/2019): Added automatically from request for surgery [id number] Obesity (BMI 30-39.9) 07/12/20182021 Assessment & Plan [...] daily. Assessment & Plan (04/17/2019 2:32 PM COORDINATOR OF PLACEMENT): Obesity is worsening. Discussed the patient's BMI. [...] again. Assessment & Plan (04/27/2017 10:00 AM COORDINATOR OF PLACEMENT): Mild pain. Associated with tenderness in the [...] High D ose, Split, Preservative Free, Intramuscular 01/12/2024,01/30/2014 Influenza, Unspecified 07/10/2024(Deferr ed: Patient Refused),12/14/2023(Deferred: Patient Refused),12/11/2023(Deferred: Patient Refused),12/15/2022(Deferred: Patient Refused),02/18/2021,01/09/2018, 017 Moderna SARS-CoV-2 Monovalen t Vaccination (12+ YRS) 02/18/2021,06/24/2020,05/21/2020 Pneumococcal Conjugate PCV 13 11/14/2018 Pneumococcal Polysaccharide PPV23 11/22/2019 RSV Vaccine, Pref, Recombina nt, Subunit, Adjuvanted, PF, IM (Arexvy) 01/12/2024 RSV, Bivalent, Protein Subun it Rsvpref, Diluent (Abrysvo) 02/08/2023 Tetanus toxoid, adsorbed 07/11/2018(Deferred: Sam briones) ZOSTER Recombinant 04/12/2023,02/08/2023 Social History Tobacco Use Types Packs/Day Years Used Date Smoking Tobacco: Former Cigarettes 0.8 28 0 06/25/1993 - 06/25/2021 Smokeless Tobacco: Former Quit: 06/25/2021 Tobacco Cessation:Counseling Given: Not Answered Alcohol Use Standard Drinks/Week Comments No 0 (1 standard drink = 0.6 oz pur e alcohol) [facility] Utilities Answer Date Recorded In the past 12 months has th e electric, gas, oil, or water [employer] threatened to shut off services in your [...] week 03/18/2023 How often do you attend [facility] or druze services? More than 4 times per year 03/18/2023 Do you belong to any clubs o r organizations such as yazdanism groups, unions, fraternal or athletic groups, or [...] place to sleep or slept in a mcc (including now)? No 03/18/2023 Personal Safety Answer [...] on file Legal Sex Female 3:09 PM COORDINATOR OF PLACEMENT Gender Identity Not on file Sexual Orientation Not on file Occupation Industry Job Start Date Job End Date RETIRED Not on file Not on file Not on file Last Filed Vital Signs Vital Sign Reading Time Taken Comments Blood Pressure 132/56 07/17/2024 12:54 PM CDT Pulse 60 07/17/2024 12:54 PM CDT Temperature 36.4 C (97.6 F) 07/17/2024 12:54 PM CDT Respiratory Rate 18 07/17/2024 12:54 PM CDT Oxygen Saturation 93% 07/17/2024 12:54 PM CDT Inhaled Oxygen Concentration - - Weight 93 kg (205 lb) 07/17/2024 12:54 PM CDT Height 154.9 cm (5' 0.98 ) 07/17/2024 12:54 PM C DT Body Mass Index 38.76 07/17/2024 12:54 PM CDT Plan of Treatment Not on [...] Comments ECG 12-LEAD Routine 05/11/2024 1:16 PM COORDINATOR OF PLACEMENT Essential (primary) hypertension EGFR Routine 05/11/2024 10:07 AM COORDINATOR OF PLACEMENT URINALYSIS, MICROSCOPIC ONLY Routine 05/11/2024 10:07 AM COORDINATOR OF PLACEMENT DIFFERENTIAL AUTO Routine 05/11/2024 10: 07 AM COORDINATOR OF PLACEMENT BASIC METABOLIC PANEL Routine 05/11/2024 10:07 AM COORDINATOR OF PLACEMENT HEMOGLOBIN A1C Routine 05/11/2024 10:07 AM COORDINATOR OF PLACEMENT CBC WITH AUTO DIFFERENTIAL Routine 05/11/2024 10:07 AM COORDINATOR OF PLACEMENT URINALYSIS AND REFLEX TO MICROSCOPIC AND CULTURE Routine 05/11/2024 10:07 AM COORDINATOR OF PLACEMENT SCREENING MAMMOGRAM BILATERAL W ANDREW Schedule Routine, Read Routine (OP Routine) 01/16/2024 2:28 PM CDT Screening mammogram, encounter for DEXA AXIAL SKELETON BONE DENSITY 1 OR MORE SITES Schedule Routine, Read Routine (OP Routine) 01/16/2024 2:16 PM CDT Post-menopausal CT LUNG CANCER SCREENING Schedule Routine, Read Routine (OP Routine) 07/13/2023 5:26 PM CDT Personal history of nicotine dependence COLONOSCOPY 05/22/2019 10:39 AM COORDINATOR OF PLACEMENT HEPATITIS C ANTIBODY Routine 05/18/2019 10:48 AM COORDINATOR OF PLACEMENT Encounter for hepatitis C screening test for low risk patient from Last 3 Months or Most Recently Relevant to Health Maintenance Results * ECG 12 lead (05/11/2024 1:16 PM COORDINATOR OF PLACEMENT) 05/11/2024 1:18 PM COORDINATOR OF PLACEMENT Narrative [facility] - 05/11/2024 2:51 PM COORDINATOR OF PLACEMENT Vent Rate: 60 bpm RR Interval: 988 msec [place] Interval: 153 msec QRS Duration: 94 msec QT Interval: 424 msec QTC Interval: 425 msec P-R-T [place]: 33 - 75 - 47 degrees IMPRESSION: SINUS RHYTHM Probably normal. No prior EKG for comparison Electronically Signed By: Dr Jeff Austin Jarred Koch MD ECG ORDERABLES Final Result [facility] * eGFR (05/11/2024 10:07 AM COORDINATOR OF PLACEMENT) eGFR >90 >=60 mL/min/1. 73 m2 Comment: [...] of Race in Diagnosing Kidney Disease, JASN 202). The CKD-EPI equation should not be used for patients with unstable renal function and has not been validated in children and those over 70. Current interpretive data was last reviewed 2021. Testing performed by: [facility], [address] [place] [address], [place]., [address] Blood 05/11/2024 10:0 7 AM COORDINATOR OF PLACEMENT 05/11/2024 12:39 PM COORDINATOR OF PLACEMENT Jarred Koch MD LAB BLOOD ORDERABLES Final R esult [facility] (CR) [address] [facility] Department [place] [address] * Differential, auto (05/11/2024 10:07 AM COORDINATOR OF PLACEMENT) Neutrophil abs 5.3 1.5 - 6.5 K/cumm Comment:Testing performed by : [facility], [address] [place] [address]., [id number] Imm gran abs 0.0 0.0 - 0.1 K/cumm [facility] (CR) Comment:Testing performed by : [facility], [address] [place] [address], [id number] Lymphocyte abs 2.0 0.8 - 3.3 K/cumm [facility] (CR) Comment:Testing performed by : [facility], [address] [place] [address]., [id number] Monocyte abs 0.6 0.2 - 0.8 K/cumm [facility] (CR) Comment:Testing performed by : [address] [address] Eosinophil abs 0.2 0.0 - 0.5 K/cumm [facility] (CR) Comment:Testing performed by : [address] [address] Basophil abs 0.1 0.0 - 0.1 K/cumm [facility] (CR) Comment:Testing performed by : [address], [address] Neutrophil pct 64.4 % [facility] (CR) Comment: Interpretive Data Percent cell count reference ranges are not reported, since discordance with absolute values may lead to misinterpretation of CBC data. Current Interpretive Data was last revised on 2017. Testing performed by: [address], [address] Imm gran pct 0.2 % [facility] (CR) Comment: Interpretive Data Percent cell count reference ranges are not reported, since discordance with absolute values may lead to misinterpretation of CBC data. Current Interpretive Data was last revised on 2017. Testing performed by: [facility], [address] [place] [address]., [id number] Lymphocyte pct 24.5 % [facility] (CR) Comment: Interpretive Data Percent cell count reference ranges are not reported, since discordance with absolute values may lead to misinterpretation of CBC data. Current Interpretive Data was last revised on 2017. Testing performed by: [facility], [address] [place] [address]., [id number] Monocyte pct 7.8 % [facility] (CR) Comment: Interpretive Data Percent cell count reference ranges are not reported, since discordance with absolute values may lead to misinterpretation of CBC data. Current Interpretive Data was last revised on 2017. Testing performed by: [facility], [address] [place] [address]., [address] Eosinophil pct 2.5 % [facility] (CR) Comment: Interpretive Data Percent cell count reference ranges are not reported, since discordance with absolute values may lead to misinterpretation of CBC data. Current Interpretive Data was last revised on 2017. Testing performed by: [address] [address] Basophil pct 0.6 % [facility] (CR) Comment: Interpretive Data Percent cell count reference ranges are not reported, since discordance with absolute values may lead to misinterpretation of CBC data. Current Interpretive Data was last revised on 2017. Testing performed by: [address] [address] Blood 05/11/2024 10:0 7 AM COORDINATOR OF PLACEMENT 05/11/2024 10:07 AM COORDINATOR OF PLACEMENT Jarred Koch MD LAB BLOOD ORDERABLES Final R esult [facility] (CR) 1 [facility] Department [place] [address] * (ABNORMAL) Urinalysis reflex to microscopic and culture Urine, clean voided (05/11/2024 10:07 AM COORDINATOR OF PLACEMENT) Color, ur Yellow Yellow Comment:Testing performed by : [address] [address] Clarity, ur Clear Clear [facility] A (CR) Comment:Testing performed by : [address], [address] Specific gravity, ur 1.026 1.003 - 1.030 [facility] (CR) Comment:Testing performed by : [address], [address] pH, urine 5.5 [facility] (CR) Comment: Interpretive Data U rine pH is affected by diet, medications, systemic acid-base disturbances, and renal tubular function. pH may affect urinary stone formation. For example, urine pH below 6.0 may help reduce the tendency for calcium phosphate stones and pH greater than 6.0 may reduce the tendency for uric acid stone formation. Source: [facility] [employer] Waste Management Current Interpretive Data was last revised on 2017 Testing performed by: [address], [address] Protein, ur ql Negative Negative [facility] (CR) Comment:Testing performed by : [address], [address] Glucose, ur ql Negative Negative [facility] (CR) Comment:Testing performed by : [address], [address] Ketones, ur Negative Negative [facility] A (CR) Comment:Testing performed by : [address], [address] Bilirubin, ur Negative Negative [facility] (CR) Comment:Testing performed by : [address], [address] Blood, ur Trace(A) Negative [facility] (CR) Comment:Testing performed by : [address], [address] Urobilinogen, ur <2.0 <2.0 mg/dL [facility] (CR) Comment:Testing performed by : [address], [address] Nitrite, ur Negative Negative [facility] A (CR) Comment:Testing performed by : [address], [address] Leukocyte esterase, ur 3+(A) Negative [facility] (CR) Comment:Testing performed by : [address], [address] UA reflex comment Reflex to microscopic UA will be performed. [facility] (CR) Comment:Testing performed by : [address], [address] Urine, clean voided 05/11/2024 10:07 AM COORDINATOR OF PLACEMENT 05/11/2024 10:08 AM COORDINATOR OF PLACEMENT Jarred Koch MD LAB MICROBIOLOGY - GENERAL O RDERABLES Final Result SUJATA FARIAS (CR) 1 [facility] Department [place] [address] * (ABNORMAL) CBC with auto differential (05/11/2024 10:07 AM COORDINATOR OF PLACEMENT) WBC 8.2 3.8 - 9.9 K/cumm Comment:Testing performed by : [address], [address] Hgb 15.1 11.9 - 15.5 g/dL SUJATA FARIAS (CR) Comment:Testing performed by : [address], [address] Hct 47.9(H) 35.6 - 45.5 % SUJATA FARIAS (CR) Comment:Testing performed by : [address], [address] Plt 227 150 - 400 K/cumm SUJATA FARIAS (CR) Comment:Testing performed by : [address], [address] MPV 10.0 9.1 - 12.3 fL SUJATA FARIAS (CR) Comment:Testing performed by : [address], [address] RBC 5.55(H) 3.90 - 5.20 M/cumm SUJATA FARIAS (CR) Comment:Testing performed by : [address], [address] MCV 86.3 81.3 - 96.4 fL [facility] (CR) Comment:Testing performed by : [address], [address] MCH 27.2 27.1 - 33.3 pg [facility] (CR) Comment:Testing performed by : [address], [address] MCHC 31.5(L) 32.3 - 35.7 g/dL [facility] (CR) Comment:Testing performed by : [address], [address] RDW CV 15.6(H) 11.1 - 14.9 % [facility] (CR) Comment:Testing performed by : [address], [address] RDW SD 49.2(H) 35.7 - 48.1 fL [facility] (CR) Comment:Testing performed by : [address], [address] NRBC abs 0.00 0.00 - 0.01 K/cumm [facility] (CR) Comment:Testing performed by : [address], [address] Blood 05/11/2024 10:0 7 AM COORDINATOR OF PLACEMENT 05/11/2024 10:07 AM COORDINATOR OF PLACEMENT Jarred Koch MD LAB BLOOD ORDERABLES Final R esult SUJATA FARIAS (CR) 1 [facility] Department [place] [address] * (ABNORMAL) Urinalysis, microscopic only (05/11/2024 10:07 AM COORDINATOR OF PLACEMENT) WBC, ur 0-5 0 - 5 Comment:Testing performed by : [address], [address] RBC, ur 0-2 0 - 2 /HPF [facility] (CR) Comment:Testing performed by : [address], [address] Epithelial cells, squamous, ur 11-20(A) 0 - 5 /HPF SUJATA FARIAS (CR) Comment:Testing performed by : [facility], [address] [place] [address], [address] Mucous, ur Present(A) SUJATA Hopkins (CR) Comment:Testing performed by : [facility], [address] [place] [address], [address] Culture Reflex Comment Reflex conditions for urine culture (WBC >10) not met. SUJATA FARIAS (CR) Comment:Testing performed by : [facility], [address] [place] [address], [address] Urine, clean voided 05/11/2024 10:07 AM COORDINATOR OF PLACEMENT 05/11/2024 12:24 PM COORDINATOR OF PLACEMENT Jarred Koch MD LAB URINE ORDERABLES Final R esult Performing Organization Address City/[facility]/ZIP Co de Phone Number SUJATA FARIAS ([place]) 1 [facility] Department [place] [address] * (ABNORMAL) Hemoglobin A1c (05/11/2024 10:07 AM COORDINATOR OF PLACEMENT) Hgb A1C 6.3(H) 4.0 - 5.6 % Comment:Testing performed by : [facility], [address] [place] [address], [address] Estimated Average Glucose 134 mg/dL SUJATA FARIAS (CR) Comment: The ADA recommends reporting an estimated Average Glucose (eAG) with all Hemoglobin A1c results using the equation derived from a study of 507 normal and diabetic adults. Minority populations were underrepresented and children were not included. (Diabetes Care 31:8999-2759, 2008). The eAG is not equivalent to a fasting glucose. Testing performed by: [facility], [address] [place] [address], [address] Blood 05/11/2024 10:0 7 AM COORDINATOR OF PLACEMENT 05/11/2024 10:07 AM COORDINATOR OF PLACEMENT Jarred Koch MD LAB BLOOD ORDERABLES Final R esult Performing Organization Address City/[facility]/ZIP Co de Phone Number SUJATA FARIAS (CR) 1 [facility] Department [place] [address] * (ABNORMAL) Basic metabolic panel (05/11/2024 10:07 AM COORDINATOR OF PLACEMENT) Sodium 142 135 - 145 mmol/L Comment:Testing performed by : [facility], [address] [place] [address]., [address] Potassium, pl 3.7 3.3 - 4.9 mmol/L [facility] (CR) Comment:Testing performed by : [facility], [address] [place] [address]., [address] Chloride 101 97 - 110 mmol/L [facility] (CR) Comment:Testing performed by : [facility], [address] [place] [address]., [address] CO2 27 22 - 32 mmol/L [facility] (CR) Comment:Testing performed by : [address], [address] Anion gap 14 2 - 15 mmol/L [facility] (CR) Comment:Testing performed by : [facility], [address] [place] [address]., [address] BUN 14 6 - 25 mg/dL [facility] (CR) Comment:Testing performed by : [facility], [address] [place] [address]., [address] Creatinine 0.51(L) 0.60 - 1.10 mg/dL [facility] (CR) Comment:Testing performed by : [address] [address] Glucose 130 70 - 199 mg/dL [facility] (CR) Comment: Interpretive Data Fasting glucose >/= [...] was last revised 2022. Testing performed by: [address], [address] Calcium 9.2 8.5 - 10.3 mg/dL SUJATA FARIAS (CR) Comment:Testing performed by : [facility], [address] [facility], [place]., [address] Blood 05/11/2024 10:0 7 AM COORDINATOR OF PLACEMENT 05/11/2024 10:07 AM COORDINATOR OF PLACEMENT Jarred Koch MD LAB BLOOD ORDERABLES Final R esult SUJATA FARIAS ([place]) 1 [facility] Department [place] [address] * Screening Mammogram Bilateral W Andrew (01/16/2024 [...] history of: screening Osteoporosis screening Post menopausal Community Health Program Representative/Model: [employer] Discovery SL (S/N [id number]) CLINICAL INFORMATION: Current height: 61 inches Maximum [...] Filemon Albert M.D. MF: SHERYL Report ID: [id number] Reading Location: [id number] Procedure Note Filemon Albert MD - 01/16/2024 EXAM DESCRIPTION: DEXA AXIAL SKELETON BONE DENSITY 1 OR MORE SITES REASON FOR STUDY: 68 y/o year old F with given history of: screening Osteoporosis screening Post menopausal Community Health Program Representative/Model: copygram (S/N [id number]) CLINICAL INFORMATION: Current height: 61 inches Maximum [...] Filemon Albert M.D. MF: SHERYL Report ID: [id number] Reading Location: [place] [address] us Charlie Mtz MD IMG DXA PROCEDURES Final [...] Lux Sin M.D. AM: AM Report ID: [id number] Reading Location: [place] [address] Procedure Note Lux Sin MD - 07/14/2023 [...] Lux Sin M.D. AM: AM Report ID: [id number] Reading Location: [place] [address] us Charlie Mtz MD IM CT PROCEDURES Final R esult * COLONOSCOPY (05/22/2019 10:39 AM COORDINATOR OF PLACEMENT) Anatomical Region Laterality Modality Other Narrative Procedure Note Marlon Cronin MD - 05/22/2019 10:39 AM CST [facility] Patient Name: Brittanie Gambino Procedure Date: 05/22/2019 10:39 AM Date of : 1955 Admit Type: Outpatient Age: 63 Gender: Female Attending MD: Marlon Cronin M.D. Room: [facility] ENDOSCOPY ROOM 2 Note Status: Finalized [...] scope was passed under direct vision.The Colonoscope CF-[id number] was introducedthrough the anus and advanced to [...] malignant neoplasm of colon CPT copyright 2017 [employer]. All rights reserved. The codes documented in this report are preliminary and upon icd 9 coder reviewmay be revised to meet current compliance requirements. Recognized by the [employer] for promoting quality in endoscopy us Marlon Cronin MD ENDOSCOPY PROCEDURES Final Re sult * Hepatitis C antibody (05/18/2019 10:48 AM COORDINATOR OF PLACEMENT) Hep C Ab Negative Negative SUJATA FARIAS (CR) Comment:Testing performed by : [facility], [address] [place] [address], [place]., [address] Blood specimen (specimen) 05/18/2019 10:48 AM COORDINATOR OF PLACEMENT 05/18/2019 1:38 PM COORDINATOR OF PLACEMENT us Sydney Tompkins NP LAB MICROBIOLOGY - GENERAL O RDERABLES Final Result SUJATA FARIAS (CR) 1 [facility] Department [place] [address] from Last 3 Months or Most Recently Relevant to Health Maintenance Insurance [facility] [place] [address] [facility] MEDICARE [facility] Advance Directives For more information, please contact: [phone] * Full Code (Latest Code Status on File) Date Activated Date Inactivated Comments 03/13/2023 4:52 AM 03/16/2023 6:28 PM * Full Code Date Activated Date Inactivated Comments 07/01/2020 12:51 PM 07/01/2020 6:46 PM * Full Code Date Activated Date Inactivated Comments 05/22/2019 10:14 AM 05/22/2019 4:30 PM * Full Code Date Activated Date Inactivated Comments 05/22/2019 10:14 AM 05/22/2019 10:14 AM Care Teams Family Readiness Support Assistant Relationship Specialty Start Date End Date Charlie Mtz MD [address] [place] [address] PCP - General Family Medicine 05/28/21 Sintia Santoyo NP Nurse Practitioner Obstetrics and Gynecology 07/13/18 Davey Myles NP Nurse Practitioner Family Practice 10/16/20
--- OUTSIDE RECORDS SUMMARY | 2024-07-24 01:32 | XMS_ITS | Clinical Summary ---
Author Organization [facility] Address [address] [place] [address] Care Team Providers Care Medical Instructor Name Role Phone Jn Delgado MD Primary Care Provider [phone] Source Comments [facility],non-owned Affiliates and Associated Physician Practices is amultiple site organization consisting of ambulatory clinics and hospital sitesin [place], [place], [place]. This disclosure is being madepursuant to the Care Everywhere program and may not contain all information available regarding this patient. Last updated 17.[facility] Allergies Active Allergy Reactions Criticality Noted Date Comments Codeine Headache Low 05/11/2016 Tetanus Toxoid Swelling Medium 05/11/2016 Medications * Be aware that medications may not be up to date on this document. Alwaysverify current medications with the patient. Olmesartan-Amlodip ine-HCTZ (TRIBENZOR PO) Activ e Colesevelam HCl (WELCHOL PO) Active Social History Tobacco Use Types Packs/Day Years Used Date Smoking Tobacco: Never Assessed Comments Unknown Sex and Gender Information Value Date Recorded Sex Assigned at Not on file Legal Sex Female 5:02 PM PER DIEM CLERK Gender Identity Not on file Sexual Orientation Not on file Last Filed Vital Signs Vital Sign Reading Time Taken Comments Blood Pressure 122/60 05/11/2016 6:05 PM PER DIEM CLERK Pulse 89 05/11/2016 6:05 PM PER DIEM CLERK Temperature 37.2 C (99 F) 05/11/2016 6:05 PM PER DIEM CLERK Respiratory Rate - - Oxygen Saturation - - Inhaled Oxygen Concentration - - Weight 90.7 kg (200 lb) 05/11/2016 6:05 PM PER DIEM CLERK Height 160 cm (5' 3 ) 05/11/2016 6:05 PM PER DIEM CLERK Body Mass Index 35.43 05/11/2016 6:05 PM PER DIEM CLERK Plan of Treatment Health Maintenance Due Date [...] VACCINE (1 of 2) 07/07/2003 COVID-19 VACCINE (1 - 2023-2 5 season) 2023 DEPRESSION SCREENING 04/11/2024 INFLUENZA VACCINE (Season Ended) 2024 Respiratory Syncytial Virus (RSV) Vaccine Pt: or [...] on patient's age to complete this topic Insurance SUE Care Teams Medical Instructor Relationship Specialty Start Date End Date Jn Delgado MD [address] [place] [address] PCP - General Internal Medicine 05/11/16
--- OUTSIDE RECORDS SUMMARY | 2024-07-24 01:32 | XMS_ITS | Encounter Summary ---
Author Organization [facility] Address [address] [place] [address] Care Team Providers Care Syrup Maker Name Role Phone Laz Rodríguez MD Primary Care Provider Jn Mcdonald MD Primary Care Provider [phone] Sydney Tompkins CUTTING AND BONING SUPERVISOR Primary Care Provider [phone] Sydney Tompkins NP Primary Care Provider [phone] Laz Rodríguez MD Unavailable [phone] Jn Mcdonald MD Unavailable [phone] Sydney Tompkins NP Unavailable [phone] Sintia Santoyo CUTTING AND BONING SUPERVISOR Unavailable [phone] Marlon Cronin MD Unavailable [phone] Davey Myles CUTTING AND BONING SUPERVISOR Unavailable [phone] Charlie Mtz MD Primary Care Provider [phone] Denita Jones RN Unavailable [phone] Encounter Details Date Type Department Care Team (Late st Contact Info) Description 02/06/2013 Orders Only [facility] [address] [place] [address] Scanning, Provider Social History Tobacco Use Types Packs/Day Years Used Date Smoking Tobacco: Never Assessed Alcohol Use Standard Drinks/Week Comments No 0 (1 standard drink = 0.6 oz pur e alcohol) Comments Unknown Sex and Gender Information Value Date Recorded Sex Assigned at Not on file Legal Sex Female 3:09 PM WIRELESS CONSTRUCTION MANAGER Gender Identity Not on file Sexual [...] COVID: Suspected 02/22/2020 02/22/2020 02/23/2020 5:41 AM WIRELESS CONSTRUCTION MANAGER Respiratory Infection (BRITTNY), contact + droplet Comment:Automatically added due to negative COVID-19 result. 02/23/2020 02/23/2020 03/08/2020 3:0 7 AM WIRELESS CONSTRUCTION MANAGER COVID: Suspected 04/28/2020 04/28/2020 04/28/2020 11:48 PM WIRELESS CONSTRUCTION MANAGER Respiratory Infection (BRITTNY), contact + droplet Comment:Automatically added due to negative COVID-19 result. 04/28/2020 04/28/2020 05/12/2020 3:0 7 AM WIRELESS CONSTRUCTION MANAGER Exposure, COVID-19 Comment:Added automatically based on COVID19 lab answers indicating exposure risk 03/10/2021 03/10/2021 03/25/2021 3:[address] COVID: Suspected 03/10/2021 03/10/2021 03/10/2021 4:53 PM WIRELESS CONSTRUCTION MANAGER COVID: Suspected 03/26/2021 03/26/2021 03/26/2021 10:27 PM WIRELESS CONSTRUCTION MANAGER COVID: Suspected 10/27/2021 10/27/2021 10/27/2021 11:28 AM CDT COVID19 10/27/2021 10/27/2021 11/06/2021 3:05 AM CDT COVID: Recovered Comment:Added based on recent COVID infection. 11/06/2021 12/03/2021 03/06/2022 3:[address] COVID: Suspected 04/30/2022 04/30/2022 04/30/2022 2:24 PM WIRELESS CONSTRUCTION MANAGER COVID: Suspected 03/08/2023 03/08/2023 03/08/2023 11:30 AM WIRELESS CONSTRUCTION MANAGER COVID: Suspected 03/12/2023 03/13/2023 03/13/2023 12:59 AM WIRELESS CONSTRUCTION MANAGER documented as of this encounter Care Teams Syrup Maker Relationship Specialty Start Date End Date Laz Rodríguez MD [address] [place] [address] PCP - General 10/15/10 10/21/16 Jn Mcdonald MD [address] [place] [address] PCP - General 10/22/16 06/20/18 Sydney Tompkins NP [address] [place] [address] PCP - General Family Medicine 06/21/18 07/10/18 Sydney Tompkins NP [address] [place] [address] PCP - General Family Medicine 07/11/18 05/27/21 [place] [address] PCP - General Family Medicine 05/28/21 Laz Rodríguez MD [address] [place] [address] 10/22/16 11/21/19 Jn Mcdonald MD [address] [place] [address] 06/21/18 07/10/18 Sydney Tompkins NP [address] [facility] [address] [place] [address] Family Medicine 07/11/18 07/12/18 Sintia Santoyo NP [address] [facility] [address] [place] [address] Nurse Practitioner Obstetrics and Gynecology 07/13/18 Marlon Cronin MD [address] [facility] [address] [place] [address] Consulting Physician Gastroenterology 07/13/18 10/15/20 Davey Myles NP [address] [facility] [address] [place] [address] Nurse Practitioner Family Practice 10/16/20 Denita Jones, RN [address] [place] [address] [address] [place] [address] Placement Interviewer 03/17/23 04/19/23 documented as of this encounter
--- OUTSIDE RECORDS SUMMARY | 2024-07-24 01:32 | XMS_ITS | Encounter Summary ---
Author Organization [facility] Healthcare Address [address] [place] [address] Care Team Providers Care Sidehand Name Role Phone Sydney Tompkins NP Primary Care Provider [phone] Sintia Santoyo NP Unavailable [phone] Marlon Cronin MD Unavailable [phone] Davey Myles NP Unavailable [phone] Charlie Mtz MD Primary Care Provider [phone] Denita Jones RN Unavailable [phone] Encounter Details Date Type Department Care Team (Late st Contact Info) Description 03/14/2020 Telephone [facility] [address] [place] [address] Marilin Galan RT Social History Tobacco Use [...] on file Legal Sex Female 3:09 PM BROILER SUPERVISOR Gender Identity Not on file Sexual Orientation [...] COVID: Suspected 04/28/2020 04/28/2020 04/28/2020 11:48 PM BROILER SUPERVISOR Respiratory Infection (BRITTNY), contact + droplet Comment:Automatically added due to negative COVID-19 result. 04/28/2020 04/28/2020 05/12/2020 3:0 7 AM BROILER SUPERVISOR Exposure, COVID-19 Comment:Added automatically based on COVID19 lab answers indicating exposure risk 03/10/2021 03/10/2021 03/25/2021 3:[address] COVID: Suspected 03/10/2021 03/10/2021 03/10/2021 4:53 PM BROILER SUPERVISOR COVID: Suspected 03/26/2021 03/26/2021 03/26/2021 10:27 PM BROILER SUPERVISOR COVID: Suspected 10/27/2021 10/27/2021 10/27/2021 11:28 AM CDT COVID19 10/27/2021 10/27/2021 11/06/2021 3:05 AM CDT COVID: Recovered Comment:Added based on recent COVID infection. 11/06/2021 12/03/2021 03/06/2022 3:[address] COVID: Suspected 04/30/2022 04/30/2022 04/30/2022 2:24 PM BROILER SUPERVISOR COVID: Suspected 03/08/2023 03/08/2023 03/08/2023 11:30 AM BROILER SUPERVISOR COVID: Suspected 03/12/2023 03/13/2023 03/13/2023 12:59 AM BROILER SUPERVISOR documented as of this encounter Care Teams Sidehand Relationship Specialty Start Date End Date Sydney Tompkins NP PCP - General Family Medicine 07/11/18 05/27/21 [place] [address] PCP - General Family Medicine 05/28/21 Sintia Santoyo NP Nurse Practitioner Obstetrics and Gynecology 07/13/18 Marlon Cronin MD Consulting Physician Gastroenterology 07/13/18 10/15/20 Davey Myles NP Nurse Practitioner Family Practice 10/16/20 Denita Jones, RN [address] [place] [address] [address] [place] [address] Websphere Architect 03/17/23 04/19/23 documented as of this encounter
--- OUTSIDE RECORDS SUMMARY | 2024-07-24 01:32 | XMS_ITS | Clinical Summary ---
Author Organization [facility] Virtual Care Address [address] [place] [phone] Phone Care Team Providers Care Casing Flusher Name Role Phone Sintia Santoyo SIGNALING DESIGN ENGINEER Unavailable [phone] Davey Myles SIGNALING DESIGN ENGINEER Unavailable [phone] Charlie Mtz MD Primary Care Provider [phone] Allergies Active Allergy Reactions Criticality Noted Date [...] daily 90 tablet 3 01/23/20 24 Active tiZANidine (ZANAFLEX) 4 mg tablet Take [...] 60 capsule 3 12/16/19 23 025 Discontinued(Kevyn avery Reported) sertraline (ZOLOFT) 50 mg tablet TAKE [...] day for 7 days 14 capsule 07/11/19 025 Discontinued(Kevyn avery Reported) Active Problems Problem [...] loss Assessment & Plan (06/16/2023 1:29 PM FLAT SURFACER JEWEL): Stable, generally well controlled, patient reports no [...] control Assessment & Plan (05/28/2021 1:00 PM FLAT SURFACER JEWEL): Not well controlled, encouraged patient continue to [...] options Assessment & Plan (06/16/2023 1:30 PM FLAT SURFACER JEWEL): Stable, well controlled, improving; patient reports she is more physically active, engaging in social activities, re-engage with zoroastrian Would like to decrease Zoloft given vivid [...] 02/22/2020 Assessment & Plan (02/22/2020 12:16 PM FLAT SURFACER JEWEL): Small patch of atopic dermatitis on mid [...] today. Assessment & Plan (04/17/2019 2:34 PM FLAT SURFACER JEWEL): Repeat CBC in 2 weeks. She was previously taking steroids during her ED visit which may have falsely elevated her white blood count. Vitamin D deficiency 04/17/2019 Assessment & Plan (02/22/2020 9:32 AM FLAT SURFACER JEWEL): Last vitamin d level 12/07/2019 52. Recommend vitamin d3 2000 international units once daily. Assessment & Plan (11/24/2019 3:46 PM CDT): Continue vitamin d2 50,000 International units once weekly and repeat vitamin d level today. Assessment & Plan (04/17/2019 2:34 PM FLAT SURFACER JEWEL): [place] [address] units once weekly. Get vitamin-D level in 2 weeks with labs. High risk of cardiac event 04/17/2019 Assessment & Plan (09/02/2022 4:40 PM CDT): Stable, well controlled; continue pravastatin 40 mg daily; continue ASA 81 mg daily Encourage risk modifications Assessment & Plan (04/17/2019 2:34 PM FLAT SURFACER JEWEL): Patient's ASCVD risk score is 13.3%. I recommended that she be on statin instead of bile acid sequestrant for CV prophylaxis. Start atorvastatin 10 mg daily. Mixed hyperlipidemia 04/17/2019 Assessment & Plan (12/19/2023 10:41 AM CDT): Chronic, stable, well controlled Continue Pravastatin 40 mg daily Assessment & Plan (06/16/2023 1:29 PM FLAT SURFACER JEWEL): Stable, well controlled, lipids in optimal range Continue pravastatin 40 mg daily Assessment & Plan (06/09/2022 4:56 PM FLAT SURFACER JEWEL): Well controlled, lipids at target Continue pravastatin 40 mg nightly Assessment & Plan (12/15/2021 4:59 PM CDT): Stable, well controlled; continue pravastatin 40 mg nightly Assessment & Plan (09/08/2021 2:06 PM CDT): Stable, generally well controlled; continue pravastatin 40 mg nightly Assessment & Plan (07/09/2021 11:01 AM CDT): Stable, well controlled; continue pravastatin 40 mg nightly Assessment & Plan (05/28/2021 12:58 PM FLAT SURFACER JEWEL): Stable, well controlled last lipid panel demonstrated normal total cholesterol, LDL mildly elevated 114; continue to monitor encourage low-fat high-fiber diet Continue pravastatin 40 mg daily Assessment & Plan (11/30/2020 1:37 PM CDT): Lipids are well controlled on pravastatin 40 mg once daily. Assessment & Plan (02/22/2020 12:13 PM FLAT SURFACER JEWEL): Lipids are well controlled on pravastatin 40 mg once daily. Assessment & Plan (11/24/2019 3:43 PM CDT): Continue pravastatin 40 mg daily. Repeat lipid profile today. Recommended Mediterranean diet. Do not think keto diet facilitates a heart healthy diet. Assessment & Plan (09/07/2019 1:31 PM CDT): Continue pravastatin 40 mg daily. Repeat lipid profile in November. Assessment & Plan (04/17/2019 2:35 PM FLAT SURFACER JEWEL): Lipid abnormalities are unchanged. Nutritional counseling was [...] visit; 124/76 Continue Bystolic 20 mg and Aohkeeeqql-ywyrjhcwmo-KPAM 40-10-25 mg daily Assessment & Plan (08/08/2023 1:14 PM CDT): Stable, well controlled; blood pressure goals; continue Bystolic 20 mg daily, tohjnizswt-fmcipcwizr-dxgpjhjerwmdumlpqfh 40-10-25 mg Assessment & Plan (06/16/2023 1:29 PM FLAT SURFACER JEWEL): Stable, well controlled, blood pressure at goal; patient reports no chest pain or headaches Continue Bystolic 20 mg daily, rhhbtnejtq-wgytewlupu-cpfyxpgjgsbygvdxjdt 40-10-251 tablet daily; Assessment & Plan (09/02/2022 4:39 PM CDT): Stable, well controlled; blood pressure at target No chest pain or headaches Continue Bystolic 20 mg daily, Tribenzor 40-10-251 tablet daily Assessment & Plan (06/09/2022 4:57 PM FLAT SURFACER JEWEL): Stable, blood pressure at target Continue Tribenzor [...] daily Assessment & Plan (05/28/2021 12:59 PM FLAT SURFACER JEWEL): Stable, generally well controlled; blood pressure mildly [...] appointment. Assessment & Plan (02/22/2020 12:14 PM FLAT SURFACER JEWEL): Hypertension is improved. Continue current treatment regimen. [...] appointment. Assessment & Plan (04/17/2019 2:32 PM FLAT SURFACER JEWEL): Hypertension is improving with treatment. Continue current [...] cessation Assessment & Plan (05/28/2021 1:02 PM FLAT SURFACER JEWEL): Patient continues to smoke, smoking about 1 pack per day Encouraged patient to continue to work towards complete cessation Patient understands importance of smoking, but is not yet gotten to change mind set Assessment & Plan (11/30/2020 1:39 PM CDT): Encourage smoking cessation. Assessment & Plan (02/22/2020 12:12 PM FLAT SURFACER JEWEL): Encourage smoking cessation. Had quit for almost [...] phone. Assessment & Plan (04/17/2019 2:33 PM FLAT SURFACER JEWEL): Encourage smoking cessation. Assessment & Plan (11/15/2018 [...] daily Assessment & Plan (06/09/2022 4:59 PM FLAT SURFACER JEWEL): Stable, last A1c was 6.2; at target [...] daily Assessment & Plan (05/28/2021 12:59 PM FLAT SURFACER JEWEL): Continue to monitor, check A1c to evaluate blood sugars are continue to elevate Continue Tradjenta 5 mg Assessment & Plan (11/30/2020 1:38 PM CDT): A1c today Continue Tradjenta 5 mg once daily. Assessment & Plan (02/22/2020 12:13 PM FLAT SURFACER JEWEL): A1c well controlled at 6.3. Continue Tradjenta 5 mg once daily. Assessment & Plan (11/24/2019 3:45 PM CDT): Patient on Tradjenta 5 mg daily. Continue medication and diet lifestyle modifications. Assessment & Plan (04/17/2019 2:32 PM FLAT SURFACER JEWEL): Patient on Tradjenta 5 mg daily. A1c [...] daily Assessment & Plan (06/09/2022 4:58 PM FLAT SURFACER JEWEL): Stable, improving, quit smoking June 25, 2021; [...] dyspnea, though does report decreased insurance and correction Discussed with patient importance of continued activity and exercise in order to maintain pulmonary help Congratulated patient on smoking cessation will continue Spiriva 18 mcg daily Assessment & Plan (05/28/2021 1:01 PM FLAT SURFACER JEWEL): Stable, generally well controlled; patient has few [...] p.r.n. Assessment & Plan (02/22/2020 12:16 PM FLAT SURFACER JEWEL): COPD is worsening. Discussed monitoring symptoms and [...] steroids. Assessment & Plan (04/17/2019 2:32 PM FLAT SURFACER JEWEL): COPD is improving with treatment. Discussed monitoring [...] levels Assessment & Plan (06/09/2022 4:58 PM FLAT SURFACER JEWEL): Not well controlled, patient reports symptoms beginning worse; patient reports episodes of agoraphobia; worry about leaving house due to concerns for panic attacks Patient every 6 months ago; continues to have grief related to also Refer to [facility] for individual counseling Continue sertraline 100 mg daily; start diazepam 2 mg p.r.n. for panic attacks Assessment & Plan (05/28/2021 1:01 PM FLAT SURFACER JEWEL): Not well controlled, patient has multiple recent [...] 07/12/2018 Assessment & Plan (06/16/2023 1:30 PM FLAT SURFACER JEWEL): Not well controlled, has been having some difficulty; recently neighbor mode throwing up significant amounts of dust which worsened her symptoms Hoarse voice and nasal changes in swelling, especially morning Continue daily antihistamine, continue Flonase 2 sprays 1-2 times daily Assessment & Plan (12/15/2021 5:00 PM CDT): Generally stable; patient reports symptoms, on-off Continue fwhk-smf-zidtzdk antihistamine; Flonase 2 sprays each nostril daily [...] (08/05/2020): Added automatically from request for surgery [id number] Assessment & Plan (09/09/2020 5:51 PM CDT): [...] up. Assessment & Plan (05/19/2020 4:51 PM FLAT SURFACER JEWEL): Noted from recent urinalysis. Will repeat urinalysis to better evaluate her urine. Upper abdominal pain 05/08/2020 021 Overview (05/08/2020): Added automatically from request for surgery [id number] Assessment & Plan (05/19/2020 4:51 PM FLAT SURFACER JEWEL): Patient has chronic intermittent upper abdominal pain [...] 11/30/2020 Assessment & Plan (02/22/2020 12:13 PM FLAT SURFACER JEWEL): Patient has a new cough over the last 1 week. I recommended testing for COVID - 19 considering her new symptoms. Reviewed self isolation procedures. Referral for testing placed today. Abnormal feces 05/10/2019 12/19/2023 Overview (05/10/2019): Added automatically from request for surgery [id number] Obesity (BMI 30-39.9) 07/12/20182021 Assessment & Plan [...] daily. Assessment & Plan (04/17/2019 2:32 PM FLAT SURFACER JEWEL): Obesity is worsening. Discussed the patient's BMI. [...] again. Assessment & Plan (04/27/2017 10:00 AM FLAT SURFACER JEWEL): Mild pain. Associated with tenderness in the [...] Description 07/17/2024 1:00 PM CDT Office Visit [facility] Primary Care at [address] [place] [phone] Michell Burgos NP Otalgia, left ear (Primary Dx) 07/10/2024 4:00 PM CDT [facility] Visit [facility] [address] [phone] Ellie Wright NP Acute non-recurrent maxillary sinusitis (Primary Dx); Acute diffuse otitis externa of left ear; Class 2 severe obesity due to excess calories with serious comorbidity and body mass index (BMI) of 39.0 to 39.9 in adult (HCC) 07/10/2024 Nurse Triage [facility] [address] [phone] Charlie Mtz MD 07/10/2024 Nurse Triage [facility] [address] [phone] Charlie Mtz MD 07/09/2024 Telephone [facility] [address] [phone] Charlie Mtz MD Medical Question/Miscellaneo us 06/21/2024 Telephone [facility] [address] [phone] Charlie Mtz MD Forms Request 06/05/2024 Telephone [facility] [address] [phone] Charlie Mtz MD 05/31/2024 Telephone [facility] [address] [phone] Charlie Mtz MD Medical Records Request 05/31/2024 Telephone [facility] [place] [address] [place] [address] Charlie Mtz MD Test Results 05/11/2024 1:02 PM FLAT SURFACER JEWEL - 05/11/2024 11:59 PM FLAT SURFACER JEWEL Hospital Encounter [facility] [address] [place] [address] Essential (primary) hypertension Discharge Disposition: Discharge to home or self care 05/11/2024 10:00 AM FLAT SURFACER JEWEL Lab [facility] [address] [place] [address] 04/25/2024 Telephone [facility] [address] [facility] [address] [place] [address] Shona Hauser MA from Last [...] adsorbed 07/11/2018(Deferred: Sam briones) ZOSTER Recombinant 04/12/2023,02/08/2023 Surgical History Surgery Date Site/Laterality Comments KNEE [...] drink = 0.6 oz pur e alcohol) [facility] Utilities Answer Date Recorded In the past 12 months has [employer], gas, oil, or water company threatened to [...] often do you attend chur ch or zoroastrianism services? More than 4 times per year 03/18/2023 Do you belong to any clubs o r organizations such as zoroastrian groups, unions, fraternal or athletic groups, or [...] on file Legal Sex Female 3:09 PM FLAT SURFACER JEWEL Gender Identity Not on file Sexual Orientation [...] 07/17/2024 12:54 PM CDT Plan of Treatment Health Maintenance Due Date Last Done Comments Covid-19 Vaccine (2023- 5 season) 2023 02/18/2021, 06/24/2020, 05/21/2020 Lung Cancer Screening 07/13/2024 07/13/2023, 023 Well Visit 65+ 12/18/2024 12/19/2023, 0909/2022, 12/10/2021, [...] 06/14/2009 Pneumococcal vaccine 65+ Completed 11/22/2019, 0809/2018 Zoster Vaccine Completed 04/12/2023, 02/08/2023 Hepatitis B Screening Completed 12/14/2023 Influenza Vaccine Completed 01/12/2024, , 01/12/2022, Additional history exists DTaP/Tdap/Td Vaccine Discontinued Goals Goal Patient Goal [...] Comments ECG 12-LEAD Routine 05/11/2024 1:16 PM FLAT SURFACER JEWEL Essential (primary) hypertension EGFR Routine 05/11/2024 10:07 AM FLAT SURFACER JEWEL URINALYSIS, MICROSCOPIC ONLY Routine 05/11/2024 10:07 AM FLAT SURFACER JEWEL DIFFERENTIAL AUTO Routine 05/11/2024 10: 07 AM FLAT SURFACER JEWEL BASIC METABOLIC PANEL Routine 05/11/2024 10:07 AM FLAT SURFACER JEWEL HEMOGLOBIN A1C Routine 05/11/2024 10:07 AM FLAT SURFACER JEWEL CBC WITH AUTO DIFFERENTIAL Routine 05/11/2024 10:07 AM FLAT SURFACER JEWEL URINALYSIS AND REFLEX TO MICROSCOPIC AND CULTURE Routine 05/11/2024 10:07 AM FLAT SURFACER JEWEL SCREENING MAMMOGRAM BILATERAL W ANDREW Schedule Routine, Read Routine (OP Routine) 01/16/2024 2:28 PM CDT Screening mammogram, encounter for DEXA AXIAL SKELETON BONE DENSITY 1 OR MORE SITES Schedule Routine, Read Routine (OP Routine) 01/16/2024 2:16 PM CDT Post-menopausal CT LUNG CANCER SCREENING Schedule Routine, Read Routine (OP Routine) 07/13/2023 5:26 PM CDT Personal history of nicotine dependence COLONOSCOPY 05/22/2019 10:39 AM FLAT SURFACER JEWEL HEPATITIS C ANTIBODY Routine 05/18/2019 10:48 AM FLAT SURFACER JEWEL Encounter for hepatitis C screening test for low risk patient from Last 3 Months or Most Recently Relevant to Health Maintenance Results * ECG 12 lead (05/11/2024 1:16 PM FLAT SURFACER JEWEL) 05/11/2024 1:18 PM FLAT SURFACER JEWEL Narrative [facility] - 05/11/2024 2:51 PM FLAT SURFACER JEWEL Vent Rate: 60 bpm RR Interval: 988 msec SD Interval: 153 msec QRS Duration: 94 msec QT Interval: 424 msec QTC Interval: 425 msec P-R-T Parthenon: 33 - 75 - 47 degrees IMPRESSION: SINUS RHYTHM Probably normal. No prior EKG for comparison Electronically Signed By: Dr Jeff Austin Jarred Koch MD ECG ORDERABLES Final Result [facility] * eGFR (05/11/2024 10:07 AM FLAT SURFACER JEWEL) eGFR >90 >=60 mL/min/1. 73 m2 Comment: [...] was last reviewed 2021. Testing performed by: [address], [address] Blood 05/11/2024 10:0 7 AM FLAT SURFACER JEWEL 05/11/2024 12:39 PM FLAT SURFACER JEWEL Jarred Koch MD LAB BLOOD ORDERABLES Final R esult SUJATA FARIAS ([place]) [address] [facility] Department [place] [address] * Differential, auto (05/11/2024 10:07 AM FLAT SURFACER JEWEL) Neutrophil abs 5.3 1.5 - 6.5 K/cumm Comment:Testing performed by : [facility], [address] [place] [address], [id number] Imm gran abs 0.0 0.0 - 0.1 K/cumm SUJATA FARIAS ([place]) Comment:Testing performed by : [facility], [address] [place] [address], [id number] Lymphocyte abs 2.0 0.8 - 3.3 K/cumm SUJATA FARIAS ([place]) Comment:Testing performed by : [facility], [address] [place] [address]., [address] Monocyte abs 0.6 0.2 - 0.8 K/cumm [facility] ([place]) Comment:Testing performed by : [facility], [address] [place] [address]., [address] Eosinophil abs 0.2 0.0 - 0.5 K/cumm [facility] ([place]) Comment:Testing performed by : [facility], [address] [place] [address]., [address] Basophil abs 0.1 0.0 - 0.1 K/cumm [facility] ([place]) Comment:Testing performed by : [facility], [address] [place] [address]., [address] Neutrophil pct 64.4 % [facility] ([place]) Comment: Interpretive Data Percent cell count reference ranges are not reported, since discordance with absolute values may lead to misinterpretation of CBC data. Current Interpretive Data was last revised on 2017. Testing performed by: [address] [address] Imm gran pct 0.2 % [facility] ([place]) Comment: Interpretive Data Percent cell count reference ranges are not reported, since discordance with absolute values may lead to misinterpretation of CBC data. Current Interpretive Data was last revised on 2017. Testing performed by: [facility], [address] [place] [address]., [address] Lymphocyte pct 24.5 % [facility] ([place]) Comment: Interpretive Data Percent cell count reference ranges are not reported, since discordance with absolute values may lead to misinterpretation of CBC data. Current Interpretive Data was last revised on 2017. Testing performed by: [address] [address] Monocyte pct 7.8 % [facility] ([place]) Comment: Interpretive Data Percent cell count reference ranges are not reported, since discordance with absolute values may lead to misinterpretation of CBC data. Current Interpretive Data was last revised on 2017. Testing performed by: [address] [address] Eosinophil pct 2.5 % [facility] ([place]) Comment: Interpretive Data Percent cell count reference ranges are not reported, since discordance with absolute values may lead to misinterpretation of CBC data. Current Interpretive Data was last revised on 2017. Testing performed by: [address] [address] Basophil pct 0.6 % SUJATA FARIAS ([place]) Comment: Interpretive Data Percent cell count reference ranges are not reported, since discordance with absolute values may lead to misinterpretation of CBC data. Current Interpretive Data was last revised on 2017. Testing performed by: [address] [address] Blood 05/11/2024 10:0 7 AM FLAT SURFACER JEWEL 05/11/2024 10:07 AM FLAT SURFACER JEWEL Jarred Koch MD LAB BLOOD ORDERABLES Final R esult SUJATA AFRIAS ([place]) [address] [facility] Department of Laboratories [place] [id number] * (ABNORMAL) Urinalysis reflex to microscopic and culture Urine, clean voided (05/11/2024 10:07 AM FLAT SURFACER JEWEL) Color, ur Yellow Yellow Comment:Testing performed by : [address] [address] Clarity, ur Clear Clear SUJATA Hopkins ([place]) Comment:Testing performed by : [address] [address] Specific gravity, ur 1.026 1.003 - 1.030 SUJATA FARIAS ([place]) Comment:Testing performed by : [address] [address] pH, urine 5.5 SUJATA FARIAS ([place]) Comment: Interpretive Data U rine pH is affected by diet, medications, systemic acid-base disturbances, and renal tubular function. pH may affect urinary stone formation. For example, urine pH below 6.0 may help reduce the tendency for calcium phosphate stones and pH greater than 6.0 may reduce the tendency for uric acid stone formation. Source: [facility] Current Interpretive Data was last revised on 2017 Testing performed by: [address] [address] Protein, ur ql Negative Negative [facility] ([facility]) Comment:Testing performed by : [facility], [address] [place] [address], [address] Glucose, ur ql Negative Negative [facility] ([place]) Comment:Testing performed by : [address], [address] Ketones, ur Negative Negative [facility] ([place]) Comment:Testing performed by : [address], [address] Bilirubin, ur Negative Negative [facility] ([place]) Comment:Testing performed by : [address], [address] Blood, ur Trace(A) Negative [facility] ([place]) Comment:Testing performed by : [address], [address] Urobilinogen, ur <2.0 <2.0 mg/dL [facility] ([place]) Comment:Testing performed by : [address], [address] Nitrite, ur Negative Negative CERNER A ([place]) Comment:Testing performed by : [address], [address] Leukocyte esterase, ur 3+(A) Negative [facility] ([place]) Comment:Testing performed by : [address], [address] UA reflex comment Reflex to microscopic UA will be performed. [facility] ([place]) Comment:Testing performed by : [address], [address] Urine, clean voided 05/11/2024 10:07 AM FLAT SURFACER JEWEL 05/11/2024 10:08 AM FLAT SURFACER JEWEL Jarred Koch MD LAB MICROBIOLOGY - GENERAL O RDERABLES Final Result SUJATA FARIAS ([place]) [address] [facility] [place] [address] * (ABNORMAL) CBC with auto differential (05/11/2024 10:07 AM FLAT SURFACER JEWEL) WBC 8.2 3.8 - 9.9 K/cumm Comment:Testing performed by : [facility], [address] [place] [address], [address] Hgb 15.1 11.9 - 15.5 g/dL [facility] ([place]) Comment:Testing performed by : [address], [address] Hct 47.9(H) 35.6 - 45.5 % [facility] ([place]) Comment:Testing performed by : [facility], [address] [place] [address], [address] Plt 227 150 - 400 K/cumm [facility] ([place]) Comment:Testing performed by : [address], [address] MPV 10.0 9.1 - 12.3 fL [facility] ([place]) Comment:Testing performed by : [address], [address] RBC 5.55(H) 3.90 - 5.20 M/cumm [facility] ([place]) Comment:Testing performed by : [address], [address] MCV 86.3 81.3 - 96.4 fL [facility] ([place]) Comment:Testing performed by : [address], [address] MCH 27.2 27.1 - 33.3 pg [facility] ([place]) Comment:Testing performed by : [address], [address] MCHC 31.5(L) 32.3 - 35.7 g/dL [facility] ([place]) Comment:Testing performed by : [address], [address] RDW CV 15.6(H) 11.1 - 14.9 % [facility] ([place]) Comment:Testing performed by : [address], [address] RDW SD 49.2(H) 35.7 - 48.1 fL [facility] ([place]) Comment:Testing performed by : [address], [address] NRBC abs 0.00 0.00 - 0.01 K/cumm [facility]ATA [facility] ([place]) Comment:Testing performed by : [facility], [address] [place] [address], [address] Blood 05/11/2024 10:0 7 AM FLAT SURFACER JEWEL 05/11/2024 10:07 AM FLAT SURFACER JEWEL Jarred Koch MD LAB BLOOD ORDERABLES Final R esult Performing Organization Address [facility] Co de Phone Number SUJATA [facility] ([place]) [address] [facility] [place] [address] * (ABNORMAL) Urinalysis, microscopic only (05/11/2024 10:07 AM FLAT SURFACER JEWEL) WBC, ur 0-5 0 - 5 Comment:Testing performed by : [facility], [address] [place] [address], [address] RBC, ur 0-2 0 - 2 /HPF SU[facility]ATA [facility] ([place]) Comment:Testing performed by : [facility], [address] [place] [address], [address] Epithelial cells, squamous, ur 11-20(A) 0 - 5 /HPF SU[facility]ATA [facility] ([place]) Comment:Testing performed by : [address], [address] Mucous, ur Present(A) SUJATA Hopkins ([place]) Comment:Testing performed by : [address], [address] Culture Reflex Comment Reflex conditions for urine culture (WBC >10) not met. SU[facility]ATA [facility] ([place]) Comment:Testing performed by : [address], [address] Urine, clean voided 05/11/2024 10:07 AM FLAT SURFACER JEWEL 05/11/2024 12:24 PM FLAT SURFACER JEWEL Jarred Koch MD LAB URINE ORDERABLES Final R esult Performing Organization Address [facility] Co de Phone Number SUJATA FARIAS ([place]) [address] [facility] [place] [address] * (ABNORMAL) Hemoglobin A1c (05/11/2024 10:07 AM FLAT SURFACER JEWEL) Pathologist [facility] Hgb A1C 6.3(H) 4.0 - 5.6 % Comment:Testing performed by : [facility], [address] [place] [address]., [id number] Estimated Average Glucose 134 mg/dL SUJATA FARIAS ([place]) Comment: The ADA recommends reporting an estimated Average Glucose (eAG) with all Hemoglobin A1c results using the equation derived from a study of 507 normal and diabetic adults. Minority populations were underrepresented and children were not included. (Diabetes Care 31:2361-6296, 2008). The eAG is not equivalent to a fasting glucose. Testing performed by: [facility], [address] [place] [address]., [id number] Blood 05/11/2024 10:0 7 AM FLAT SURFACER JEWEL 05/11/2024 10:07 AM FLAT SURFACER JEWEL Jarred Koch MD LAB BLOOD ORDERABLES Final R esult SUJATA FARIAS (CR) 1 [facility] Department [place] [address] * (ABNORMAL) Basic metabolic panel (05/11/2024 10:07 AM FLAT SURFACER JEWEL) [facility] Sodium 142 135 - 145 mmol/L Comment:Testing performed by : [facility], [address] [place] [address]., [id number] Potassium, pl 3.7 3.3 - 4.9 mmol/L SUJATA FARAIS (CR) Comment:Testing performed by : [facility], [address] [place] [address]., [id number] Chloride 101 97 - 110 mmol/L SUJATA FARIAS (CR) Comment:Testing performed by : [address] [address] CO2 27 22 - 32 mmol/L SUJATA FARIAS (CR) Comment:Testing performed by : [address], [address] Anion gap 14 2 - 15 mmol/L SUJATA FARIAS (CR) Comment:Testing performed by : [address] [place]., [address] BUN 14 6 - 25 mg/dL SUJATA [facility] (CR) Comment:Testing performed by : [facility], [address] [place] [address]., [id number] Creatinine 0.51(L) 0.60 - 1.10 mg/dL SUJATA FARIAS (CR) Comment:Testing performed by : [facility], [address] [place] [address]., [id number] Glucose 130 70 - 199 mg/dL SUJATA FARIAS (CR) Comment: Interpretive Data Fasting glucose >/= [...] was last revised 2022. 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 MF: SHERYL Report ID: [id number] Reading Location: [place] [address] Charlie Mtz MD IM DXA PROCEDURES Final [...] Lux Sin M.D. AM: AM Report ID: [id number] Reading Location: [id number] Procedure Note Lux Sin MD - 07/14/2023 [...] Lux Sin M.D. AM: AM Report ID: [id number] Reading Location: [place] [address] us Charlie Mtz MD IMG CT PROCEDURES Final R esult * COLONOSCOPY (05/22/2019 10:39 AM FLAT SURFACER JEWEL) Anatomical Region Laterality Modality Other Narrative Procedure Note Marlon Cronin MD - 05/22/2019 10:39 AM CST [facility] Patient Name: Brittanie Gambino Procedure Date: 05/22/2019 10:39 AM Date of : 1955 Admit Type: Outpatient Age: 63 Gender: Female Attending MD: Marlon Cronin M.D. Room: [facility] ENDOSCOPY ROOM 2 Note Status: Finalized [...] scope was passed under direct vision.The Colonoscope [id number] was introducedthrough the anus and advanced to [...] malignant neoplasm of colon CPT copyright 2017 [employer]. All rights reserved. The codes documented in this report are preliminary and upon design assistant reviewmay be revised to meet current compliance requirements. Recognized by the [employer] for promoting quality in endoscopy us Marlon Cronin MD ENDOSCOPY PROCEDURES Final Re sult * Hepatitis C antibody (05/18/2019 10:48 AM FLAT SURFACER JEWEL) Hep C Ab Negative Negative SUJATA FARIAS (CR) Comment:Testing performed by : [facility], [address] [place] [address], [place], [place]., [facility] Blood specimen (specimen) 05/18/2019 10:48 AM FLAT SURFACER JEWEL 05/18/2019 1:38 PM FLAT SURFACER JEWEL us Sydney Tompkins NP LAB MICROBIOLOGY - GENERAL O RDERABLES Final Result SUJATA FARIAS ([place]) 1 [facility] [place] [address] from Last 3 Months or Most Recently Relevant to Health Maintenance Insurance MEDICARE [facility] [place] [address] MEDICARE [facility] [place] [address] Advance Directives For more information, please contact: [phone] * Full Code (Latest Code Status on File) Date Activated Date Inactivated Comments 03/13/2023 4:52 AM 03/16/2023 6:28 PM * Full Code Date Activated Date Inactivated Comments 07/01/2020 12:51 PM 07/01/2020 6:46 PM * Full Code Date Activated Date Inactivated Comments 05/22/2019 10:14 AM 05/22/2019 4:30 PM * Full Code Date Activated Date Inactivated Comments 05/22/2019 10:14 AM 05/22/2019 10:14 AM Care Teams Casing Flusher Relationship Specialty Start Date End Date Charlie Mtz MD [address] [place] [address] PCP - General Family Medicine 05/28/21 Sintia Santoyo NP Nurse Practitioner Obstetrics and Gynecology 07/13/18 Davey Myles NP [phone] (work) Nurse Practitioner Family Practice 10/16/20
--- OUTSIDE RECORDS SUMMARY | 2024-07-24 01:32 | XMS_ITS | Clinical Summary ---
Author Organization [facility] Address [address] [place] [address] Phone Care Team Providers Care Machine Bookkeeper Name Role Phone Unavailable Unavailable Unavailable Reason for Visit and Chief Complaint gynecologic annual exam - The Chief Complaint is: Annual Problems Includes: Problems addressed during this encounter and other active Problems Current Visit Onset Date Resolved Date Provider Conditio n Status Chronic Obstructive Pulmonary Disease 11/17/2018 ROWAN INGRAM NP-BC Active Last Documented On 9 2:25PM ; [facility] Past Visits Onset Date Resolved Date Provider Condition Status Previous Colposcopy 01/15/2013 ORWAN INGRAM NP-BC Active Last Documented On 01/15/2013 12:53PM ; [facility] Note: - FAIZAN! HYPERLIPIDEMIA NEC/NOS 01/20/2012 CE BIRCH MD Active Last Documented On 2 3:01PM ; [facility] HYPERTENSION NOS 12/09/2011 CE BIRCH MD Ac tive Last Documented On 2 10:05AM ; [facility] Plan of Treatment - Clinical summary provided to patient - Last Documented On 11/17/2018 2:42PM ; [facility] Instructions to patient Instructions for patient : B reast Self Exam discussed Last Documented On 9 2:01PM ; [facility] Lose weight Last Documented On 9 2:02PM ; [facility] Colonoscopy Handout given to patient Last Documented On 9 2:02PM ; [facility] Education and Decision Aids were provided during visit for: Patient Education: Daily rashi cium and vitamin D Last Documented On 9 2:01PM ; [facility] Patient Education: weight be aring exercise Last Documented On 9 2:01PM ; [facility] Smoking cessation advised Last Documented On 9 2:02PM ; [facility] Assessments Includes: Assessments from this encounter Findings - NORMAL FEMALE EXAM - Last Documented On 11/17/2018 2:42PM ; [facility] - Screening Malig. Neoplasm Rectum - Last Documented On 11/17/2018 2:42PM ; [facility] Instructions Includes: Instructions from this encounter Instructions to patient Instructions for patient : B reast Self Exam discussed Last Documented On 9 2:01PM ; [facility] Lose weight Last Documented On 9 2:02PM ; [facility] Colonoscopy Handout given to patient Last Documented On 9 2:02PM ; [facility] Education and Decision Aids were provided during visit for: Patient Education: Daily rashi cium and vitamin D Last Documented On 9 2:01PM ; [facility] Patient Education: weight be aring exercise Last Documented On 9 2:01PM ; [facility] Smoking cessation advised Last Documented On 9 2:02PM ; [facility] Medical Equipment - Implanted Devices Includes: Current Devices No Medical Equipment Recorded Medications Includes: Medications discussed during this encounter and other current Medications Discontinued / Stopped on this date on 11/16/2017 Ergocalciferol [id number] Oral Capsule Pro vider: Diagnosis: Last Documented On 9 2:24PM By DESHAWN DOYLE ; [facility] Current Medications (continue as prescribed) Co Q10 100MG Oral Capsule 11/17/2018 Provider: Diagnosis: Last Documented On 9 2:24PM By DESHAWN DOYLE ; [facility] Tribenzor 40-10-25MG Oral Tablet 11/17/2018 Provider : Diagnosis: Last Documented On 9 2:24PM By DESHAWN DOYLE ; [facility] Omeprazole 20MG Oral Tablet Delayed Release 2017 Provider: Diagnosis: Last Documented On 8 12:41PM By DONALDO DOYLE ; [facility] Bystolic 20MG Oral Tablet 11/16/2017 Provider: Diagnosis: Last Documented On 8 12:41PM By DONALDO DOYLE ; [facility] Fetzima 80MG Oral Capsule Extended Release 24 Hour 11/2017 Provider: Diagnosis: Last Documented On 8 12:42PM By DONALDO DOYLE ; [facility] Biotin 5000MCG Oral Capsule 11/16/2017 Provider: Diagnosis: Last Documented On 8 12:42PM By DONALDO DOYLE ; [facility] Fish Oil 1000MG Oral Capsule 11/16/2017 Provider : Diagnosis: Last Documented On 8 12:42PM By DONALDO DOYLE ; [facility] Mcittldsbj-Eqzbjslhow-YBHE 40-10-25MG Oral Tablet 11/2017 Provider: Diagnosis: Last Documented On 8 12:43PM By DONALDO DOYLE ; [facility] Welchol 625 MG OR TABS 01/15/2013 Provider: Diagnosis: Last Documented On 01/15/2013 1:05PM By DONALDO DOYLE ; [facility] Bystolic 5 MG OR TABS 12/09/2011 Provider: Diagnosis: Last Documented On 12/09/2011 10:03AM By AV CORCORAN ; [facility] Spiriva HandiHaler 18 MCG IN CAPS 12/09/2011 Provide r: Diagnosis: Last Documented On 12/09/2011 10:04AM By AV CORCORAN ; [facility] Past Medications on file Keflex 500 MG OR CAPS 01/30/2008 - 02/06/2008 Provider : Diagnosis: Last Documented On 06/09/2009 12:22PM By VIRIDIANA PINTO ; [facility] Medications Administered Includes: Administered Medications from this encounter No Administered Medications Recorded Vital Signs Includes: Vital Signs from this encounter Vital Name 11/17/2018 02:14P Blood Pressure Sitting L 122/72 BP Cuff Size Large Height (in) 62 Weight (lb) 192 Body Mass Index (kg/m2) 35.1 Body Surface Area (m2) 1.9 Last Documented: On 11/17/2018 2:19PM ; [facility] Results Includes: Results discussed during this encounter No Results Recorded For Specified Dates History of Present Illness Includes: History of Present Illness from this encounter PEDRITO GAMBINO is a 63 year old female. - Medication list reviewed - PRIMARY CARE PROVIDER : Dr Tompkins - No vertigo Social History Description Last Updated Quaker affiliation SABIANISM 9 Last Documented On 9 2:11PM ; [facility] Alcohol use 11/17/2018 Last Documented On 9 2:42PM ; [facility] Cigarette smoking 11/17/2018 Last Documented On 9 2:42PM ; [facility] In monogamous relationship 11/17/2018 Last Documented On 9 2:42PM ; [facility] Not using drugs 11/17/2018 Last Documented On 9 2:42PM ; [facility] Sexually active with 1 partners in the l ast year 11/17/2018 Last Documented On 9 2:42PM ; [facility] Smoking status : Current everyday smoker 11/17/2018 Last Documented On 9 2:42PM ; [facility] Social history unchanged 11/17/2018 Last Documented On 9 2:42PM ; [facility] Procedures and Surgical History Includes: Procedures from this encounter Procedures Code Diagnosis Performing Provider Service L ocation Service Date low fat diet Last Documented On 9 2:02PM ; [facility] Preventive Medicine Services (medicare pt) G0101 Last Documented On 9 2:17PM ; [facility] Pap smear done 36201 Last Documented On 9 2:02PM ; [facility] fecal occult blood test was negative 37808 Last Documented On 9 2:01PM ; [facility] Cervical Pap Smear performed Q0091 Last Documented On 9 2:02PM ; [facility] Surgical History Last Updated Dilation + Curettage 02/23/2019 Last Documented On 9 2:11PM ; [facility] Surgical / procedural history orthroscop ic left knee surg ~d&c ~bile duct 02/23/2019 Last Documented On 9 2:11PM ; [facility] Medical History Includes: Medical History addressed during this encounter Description Last Updated FREQUENT UTI'S ~D & C 02/23/2019 Last Documented On 9 2:11PM ; [facility] 3 02/23/2019 Last Documented On 9 2:11PM ; [facility] History of benign essential hypertension 02/23/2019 Last Documented On 9 2:11PM ; [facility] History of chronic obstructive pulmonary disease 02/23/2019 Last Documented On 9 2:11PM ; [facility] History of hyperlipidemia 02/23/2019 Last Documented On 9 2:11PM ; [facility] History of menopause lmp more than 5 yrs ago 02/23/2019 Last Documented On 9 2:11PM ; [facility] LMP: 2003 02/23/2019 Last Documented On 9 2:11PM ; [facility] Para 3 02/23/2019 Last Documented On 9 2:11PM ; [facility] No recent change in medical history 12/2018 Last Documented On 9 2:42PM ; [facility] Sexually active 11/17/2018 Last Documented On 9 2:42PM ; [facility] History of a DXA of the lateral lumbar s pine was performed 02/12/2013 11/17/2018 Last Documented On 9 2:42PM ; [facility] History of complete colonoscopy 12/2018 Last Documented On 9 2:42PM ; [facility] History of Pap smear done 11/16/201712/2018 Last Documented On 9 2:42PM ; [facility] History of screening mammogram was perfo rmed 08/23/2017 11/17/2018 Last Documented On 9 2:42PM ; [facility] Result: normal 11/17/2018 Last Documented On 9 2:42PM ; [facility] Result: normal 11/17/2018 Last Documented On 9 2:42PM ; [facility] Family History Includes: Family History addressed during this encounter Description Last Updated Family history unchanged 11/17/2018 Last Documented On 9 2:42PM ; [facility] Maternal history of hypertension mother 11/17/2018 Last Documented On 9 2:42PM ; [facility] Paternal grandmother's histo ry of family history of heart disease pgm-swollen heart 11/17/2018 Last Documented On 9 2:42PM ; [facility] Sororal history of diabetes mellitus sis ter. Mother is borderline 11/17/2018 Last Documented On 9 2:42PM ; [facility] Spouse name: Shayne 01/15/2013 Last Documented On 9 2:11PM ; [facility] Family medical history of high blood pre ssure 06/09/2009 Last Documented On 9 2:11PM ; [facility] Review of Systems Includes: Review of Systems [...] Active Last Documented On 9 2:23PM ; [facility] Codeine Allergy 06/09/2009 Active Last Documented On 9 2:23PM ; [facility] Encounters Encounter Provider Location Date Check-In Time Check-Out Time Diagnosis ANNUAL CONSULTING MANAGER EXAM ROWAN INGRAM [facility] VP BIOLOGY 11/18/19 19 1:59PM 2:44PM Screening Malig. Neoplasm Rectum,Normal Female Exam Clinical Notes Includes: Clinical Notes from this encounter No Clinical Notes Recorded
--- NOTE | 2024-07-24 07:18 | WPDHPUPDATE1 ---
History and Physical Update Update Date/Time: 07/24/24 07:18 History and Physical has been reviewed, including an updated exam of the patient. There are NO changes in the patient's condition. Risks, benefits, and alternatives have been discussed and questions answered. Patient agrees to proceed with procedure.
[2024-07-24 08:59] LABS: Glucose Point of Care 136 mg/dl (65-105)
[2024-07-24] MEDS: LACTATED RINGERS 1,000 ML 30 ML IV CONT ×2 (09:15→14:59)
[2024-07-24] MEDS: ACETAMINOPHEN 500 MG TABLET 1000 MG PO (09:15)
[2024-07-24] MEDS: TRANEXAMIC ACID 1,000MG/ISO100 1,000 MG/100 ML BAG 200 MG IVPB (09:15)
--- NOTE | 2024-07-24 09:25 | P.PNAN_ITS ---
Anes - Initial Pre Proc Eval Procedure: Operation Date: 07/24/24 10:30 Proposed Procedures p Right Total Knee Arthroplasty - Jarred Koch MD Date/Time: 07/24/24 09:25 Surgeon: Jarred Koch MD Pre Op Diagnosis: Right Knee DJD Patient Data Age: 69 Gender: F Height: 1.6 m Weight: 94.4 kg Last Vital Signs Temp 36.8 C 07/10/24 10:23 Pulse 62 07/10/24 10:23 Resp 16 07/10/24 10:23 BP 134/65 07/10/24 10:23 Pulse Ox 97 07/10/24 10:23 O2 Del Method Room Air 07/10/24 10:23 Allergies Allergy/AdvReac Type Severity Reaction Status Date / Time Tetanus Vaccines and Toxoid Allergy Mild hot Verified 07/13/24 09:21 atorvastatin AdvReac Mild leg pain Verified 07/13/24 09:21 codeine AdvReac Mild Unknown Verified 07/13/24 09:21 Home Medications ?Medication ?Instructions ?Recorded ?Confirmed ?Type albuterol sulfate 90 mcg/actuation 1 puff inhalation Q4H PRN 05/03/24 07/13/24 History aerosol inhaler (Ventolin HFA) bronchospasm aspirin 81 mg capsule 81 mg PO DAILY 05/03/24 07/13/24 History cholecalciferol (vitamin D3) 50 50 mcg PO DAILY 05/03/24 07/13/24 History mcg (2,000 unit) capsule diazepam 2 mg tablet 2 mg PO Q6H PRN anxiety 05/03/24 07/13/24 History fluticasone propionate 50 1 spray intranasal DAILY 05/03/24 07/13/24 History mcg/actuation nasal spray,suspension olmesartan 40 mg-amlodipine 10 1 tablet PO DAILY 05/03/24 07/13/24 History mg-hydrochlorothiazide 25 mg tablet omeprazole magnesium 20 mg 20 mg PO DAILY 05/03/24 07/13/24 History capsule,delayed release (Acid Sales Office Assistant (omeprazole)) potassium chloride 10 mEq 10 meq PO DAILY 05/03/24 07/13/24 History tablet,extended release (Klor-Con) pravastatin 40 mg tablet 40 mg PO QHS 05/03/24 07/13/24 History chlorhexidine gluconate 4 % 1 applic topical DAILY #237 mL 07/10/24 07/13/24 Rx topical liquid (Hibiclens) linagliptin 5 mg tablet 5 mg PO QAM 07/10/24 07/13/24 History nebivolol 20 mg tablet (Bystolic) 20 mg PO DAILY 07/10/24 07/13/24 History sertraline 25 mg tablet 50 mg PO Q24H 07/10/24 07/13/24 History umeclidinium 62.5 mcg-vilanterol 1 inh inhalation DAILY 07/10/24 07/13/24 History 25 mcg/actuation powdr for inhalation (Anoro Ellipta) Laboratory Tests 07/24/24 07/24/24 08:52 08:56 POC Capillary Glucose 136 H mg/dl (65-105) Blood Type Pending Antibody Screen Pending Patient hx anesthesia problems: other (slow to awaken) Family hx anesthesia problems: none Results Review: All pre-operative results and documents have been reviewed as part of the pre- operative evaluation. [facility] Surgical History Surgical History Hx of cholecystectomy Hx of arthroscopy of left knee ~2020 Family History Family History Unknown Hypertension Diabetes mellitus Arthritis Social History Social History Social History: caffeine use Smoking packs per day: 1 Smoking cigarettes per day: 20.0 Years smoked: 38 Smoking pack-years: 38.00 Smoking status: Former smoker Smoking end date: 04/11/21 Additional smoking assessment comments: Denies any nicotine Alcohol intake: never Substance use: current Substance use type: marijuana Other substance usage details: Gummies to help sleep Living arrangements: alone Occupation/Education: retired Gender identity (if verbalized by the patient): Female Spiritual care concerns: No Anes - Eval Final PreProcedure Day of Procedure 07/24/24 09:25 Patient weight: obese Heart: regular rate and rhythm Lungs: decreased breath sounds Airway: Mallampati scale class II Neurological: alert and oriented Last oral intake: >/= 8 hours ASA classification: III Emergent: no Anesthetic plan: proceed Anesthesia type and monitoring: general LMA and standard monitoring Results Review: All pre-operative results and documents have been reviewed as part of the pre- operative evaluation. Informed Consent: The patient's anesthetic plan and its attendant risks and benefits were discussed with the patient/family/POA. Questions were solicited and answers provided to the satisfaction of the patient/family/POA.
[2024-07-24] MEDS: ceFAZolin 2 GM/D5W 50 ML 2 GM/50 ML BAG IVPB ×2 (11:51→23:20)
[2024-07-24] MEDS: SODIUM CHLORIDE 0.9% IV 37.7 ML, MORPHINE SULFATE INJ (*CRX) 2 MG, ROPivacaine HCL 1% 2... INFILTRATE (12:34)
[2024-07-24] MEDS: TRANEXAMIC ACID 1,000 MG/10 ML AMPUL 1000 MG IV PUSH (14:04)
[2024-07-24] MEDS: KETOROLAC 30 MG/ML VIAL (*BKC) IV PUSH (14:06)
--- NOTE | 2024-07-24 15:02 | W.PM.PROC2 ---
Procedure Note - Detailed Date of Procedure 07/24/24 Pre-op Diagnosis Right Knee DJD Post-op Diagnosis Same Procedure Performed R TKA Surgeon Jarred Koch MD Anesthesia General Description of Procedure THE RIGHT KNEE WAS PREPPED AND DRAPED IN THE STERILE FASHION. THERE WAS A 25 DEGREE FLEXION CONTRACTURE. A MIDLINE SKIN INCISION WAS MADE. A MEDIAL PARAPATELLAR ARTHROTOMY WAS MADE. THE PATELLA WAS EVERTED. THERE WAS TRICOMPARTMENT DJD. AN INTRAMEDULLARY ROSALBA WAS PLACED IN THE FEMUR. A DISTAL FEMORAL CUT WAS MADE IN 5 DEGREES OF VALGUS REMOVING [id number] MM OF BONE FROM THE DISTAL FEMUR. THE FEMUR WAS SIZED TO 67.5. A 67.5 FEMORAL CUTTING BLOCK WAS PLACED IN 3 DEGREES OF EXTERNAL ROTATION AND IN ALIGNMENT WITH HILARIA'S LINE AND THE TRANSEPICONDYLAR AXIS. ANTERIOR POSTERIOR AND CHAMFER CUTS WERE MADE. THE CUTS WERE EXCELLENT. NEXT AN INTRAMEDULLARY CUTTING GUIDE WAS PLACED IN THE TIBIA. A TRANS TIBIAL CUT WAS MADE ALONG THE LONG AXIS OF THE TIBIA. APPROXIMATELY 10 MM OF BONE WAS REMOVED FROM THE HIGH SIDE OF THE TIBIA. THE TIBIA WAS THEN PLANED TO A SMOOTH SURFACE. POSTERIOR FEMORAL OSTEOPHYTES WERE REMOVED FROM THE FEMORAL CONDYLES. A 71 TIBIAL TRIAL WAS PLACED IN ALIGNMENT WITH THE 1/3 MEDIAL ASPECT OF THE TIBIAL TUBERCLE. THEN A 67.5 FEMORAL TRIAL COMPONENT WAS PLACED. BOTH HAD EXCELLENT FITS. A PS CUTTING BLOCK WAS THEN PLACED AND A BOX CUT WAS MADE. A 67.5 PS FEMORAL TRIAL AND A 14 MM PS PLUS POLYETHYLENE TRIAL COMPONENT WAS PLACED. THE KNEE WAS TAKEN THROUGH A RANGE OF MOTION. THE KNEE CAME OUT TO FULL EXTENSION. THERE WAS NO ABNORMAL TILT TO THE PATELLA. THERE WAS GOOD A/P AND VARUS/VALGUS STABILITY. THERE WAS NO EXCESSIVE ROLL BACK WITH FLEXION. THE TRIAL COMPONENTS WERE REMOVED. THEN A 67.5 PS FEMORAL COMPONENT AND 71 TIBIAL COMPONENT WITH A 14 PS PLUS POLYETHYLENE COMPONENT WERE CEMENTED INTO PLACE. ONCE THE CEMENT WAS HARD THE KNEE WAS TAKEN THROUGH A ROM AGAIN AND FOUND TO BE STABLE WITH NO PATELLA TILT NO EXCESSIVE ROLL BACK WITH FLEXION AND GOOD STABILITY WITH COMPLETE AND FULL EXTENSION. THE KNEE WAS IRRIGATED WITH STERILE BETADINE AND WATER FOR ABOUT 3 MINUTES. THE BLEEDERS WERE CAUTERIZED. THE ARTHROTOMY WAS REPAIRED WITH NUMBER 1 VICRYL. THE SUB CUTANEOUS LAYER WITH 2-0 VICRYL AND THE SKIN WITH ROBBY. THE WOUND WAS WASHED AND A STERILE DRESSING WAS APPLIED. PATIENT WAS EXTUBATED. Estimated Blood Loss -150.0 Pathology None sent Complications No immediate complications Condition Stable Disposition PACU
[2024-07-24 15:09] LABS: Glucose Point of Care 126 mg/dl (65-105)
--- NOTE | 2024-07-24 15:28 | WPDANESPNB ---
Anes - Peripheral Nerve Block Date/Time: 07/24/24 15:28 I have discussed with the patient/family/POA the placement of a peripheral nerve block for post-operative pain management, including associated risks, benefits, complications, and side effects. Alternative methods of post-operative analgesia were detailed. Questions were solicited and answers provided to the satisfaction of the patient/family/POA. Time-Out: A pre-procedural Time-Out was completed immediately before starting the procedure and confirmed: Patient Identification, Site, Procedure, Patient Position and the Availability of Requisite Equipment. Clinical Indications: Acute post-operative pain management requested by the operative surgeon. Nerve Block Insertion Note Anes-nerve block: adductor canal right Patient position: supine Skin prep: chlorhexidine Needle: 22 gauge, stimulating, insulated echogenic needle. Needle length: 80 mm Technique: ultrasound Technique comment: done in pacu Injectate: bupivacaine 0.5% with epi 5 mcg/ml (30ml no epi) and dexamethasone (mg) (4) Observations: tolerated well Complications: none Procedure start time:: 1520 Procedure end time:: 1527
[2024-07-24] MEDS: fentaNYL CITRATE INJ (*CRX) 100 MCG/2 ML VIAL 25 MCG IV PUSH ×2 (15:39→15:42)
[2024-07-24] MEDS: oxyCODONE/ACETAMINOPHEN (*CRX) 10-325 MG TABLET 1 TAB PO (16:58)
[2024-07-24] MEDS: SODIUM CHLORIDE 0.9% IV 1,000 ML 125 ML IV CONT (16:58)
[2024-07-24] MEDS: SENNA/DOCUSATE SODIUM TABLET 2 TAB PO (16:58)
[2024-07-24] MEDS: FAMOTIDINE 20 MG TABLET PO (20:53)
[2024-07-24] MEDS: ASPIRIN 81 MG ENTERIC TABLET PO (20:53)
[2024-07-24] MEDS: PRAVASTATIN SODIUM 20 MG TABLET 40 MG PO (20:53)
[2024-07-24] MEDS: CELECOXIB 200 MG CAPSULE PO (20:54)
[2024-07-24 21:03] LABS: Glucose Point of Care 199 mg/dl (65-105)
[2024-07-24] MEDS: oxyCODONE/ACETAMINOPHEN (*CRX) 5-325 MG TABLET 1 TABLET PO (23:20)
[2024-07-25] VITALS (8 sets, daily range): BP systolic 110–131; BP diastolic 54–59; PULSE 60–70; RESP 14–18; TEMP 36.3–37.2; O2SAT 93–98
[2024-07-25] MEDS: ceFAZolin 2 GM/D5W 50 ML 2 GM/50 ML BAG IVPB ×2 (04:40→11:53)
[2024-07-25 05:30] LABS: Basophils Percent Auto 0.1 % (0.2-1.2); Hematocrit 40.3 % (37.0-47.0); Hemoglobin 12.5 g/dL (12.0-15.0); Immature Granulocyte Absolute 0.09 K/mm3 (0.00-0.031); Immature Granulocyte Percent A 0.6 % (0-0.5); Lymphocytes Absolute Auto 0.83 K/mm3 (0.9-3.2); Lymphocytes Percent Auto 5.4 % (18.3-44.2); Mean Corpuscular Hemoglobin 27.6 pg (26-34); Mean Platelet Volume 9.9 fl (7.4-10.4); Monocytes Absolute Auto 0.9 K/mm3 (0.1-0.6); Monocytes Percent Auto 5.6 % (2.6-8.5); Neutrophils Absolute Auto 13.7 K/mm3 (1.3-6.7); Neutrophils Percent Auto 88.3 % (45.5-73.1); Platelet Count Result 169 k/mm3 (150-375); Red Blood Count 4.53 M/mm3 (4.2-5.4); Red Cell Distribution Width 15.7 % (11.5-14.5); White Blood Count 15.5 K/mm3 (4.5-10.0)
[2024-07-25 06:54] LABS: Anion Gap 9 mmol/L (4-12); Blood Urea Nitrogen 18 mg/dL (7-17); Calcium 8.4 mg/dL (8.4-10.2); Carbon Dioxide 27 mmol/L (22-30); Chloride 104 mmol/L (98-107); Estimated CRCL calculation 81 ml/min; Estimated Glomerular Filt Rate > 60; Glucose 180 mg/dL (65-110); Potassium 3.9 mmol/L (3.4-5.0); Sodium 140 mmol/L (137-145)
[2024-07-25 08:00] LABS: Glucose Point of Care 144 mg/dl (65-105)
[2024-07-25] MEDS: UMECLIDINIUM/VILANTEROL 62.5-25 MCG ELLIPTA 1 PUFF INHALATION (08:19)
[2024-07-25] MEDS: CHOLECALCIFEROL 1,000 UNITS TABLET 2000 UNITS PO (08:53)
[2024-07-25] MEDS: ASPIRIN 81 MG ENTERIC TABLET PO (08:53)
[2024-07-25] MEDS: CELECOXIB 200 MG CAPSULE PO ×2 (08:53→16:10)
[2024-07-25] MEDS: SITagliptin PHOSPHATE 100 MG TABLET PO (08:53)
[2024-07-25] MEDS: SENNA/DOCUSATE SODIUM TABLET 2 TAB PO ×2 (08:53→16:10)
[2024-07-25] MEDS: amLODIPine BESYLATE 10 MG TABLET BY MOUTH (08:53)
[2024-07-25] MEDS: OLMESARTAN MEDOXOMIL 20 MG TABLET 40 MG PO (08:53)
[2024-07-25] MEDS: FAMOTIDINE 20 MG TABLET PO (08:54)
[2024-07-25] MEDS: NEBIVOLOL HCL 5 MG TABLET 20 MG PO (08:54)
[2024-07-25] MEDS: hydroCHLOROthiazide 25 MG TABLET PO (08:54)
[2024-07-25] MEDS: oxyCODONE/ACETAMINOPHEN (*CRX) 10-325 MG TABLET 1 TAB PO ×2 (08:54→16:10)
[2024-07-25] MEDS: POTASSIUM CHLORIDE 10 MEQ ER TABLET PO (08:54)
[2024-07-25] MEDS: FLUTICASONE PROPIONATE 0.05% NA SPR 16 GM BTL (*BKC) 1 SPRAY NASAL (08:54)
[2024-07-25] MEDS: polyethylene glycoL 3350 17 GM POWD.PACK PO (08:55)
[2024-07-25] MEDS: SERTRALINE HCL 50 MG TABLET PO (09:05)
[2024-07-25 11:48] LABS: Glucose Point of Care 141 mg/dl (65-105)
--- NOTE | 2024-07-25 14:40 | P.PNOP_ITS ---
Progress Note: A&P Assessment and Plan (1) Left knee DJD: Code(s): M17.12 - Unilateral primary osteoarthritis, left knee Status: Acute (2) Right knee DJD: Code(s): M17.11 - Unilateral primary osteoarthritis, right knee Status: Acute Plan POD 1 DOING WELL WITH GOOD PROGRESS WITH PT. OK TO DC HOME F/U IN 3 WEEKS Subjective Subjective Date/Time Seen: 07/25/24 14:40 Interval history: POD 1 DOING WELL. NO CALF PAIN. 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 DRESSING DRY NV INTACT NEG HOWMANS SIGN CALF AND THIGH SOFT Objective Data Vital Signs Vital Signs: Vital Signs - 24 hr 07/24/24 14:59 07/24/24 15:02 07/24/24 15:15 Temperature 37.1 C Pulse Rate 69 74 66 Respiratory Rate 13 18 15 Blood Pressure 140/62 138/64 Pulse Oximetry 95 92 94 Oxygen Delivery Simple Face Mask Simple Face Mask Simple Face Mask Oxygen Flow Rate 10 10 10 07/24/24 15:30 07/24/24 15:45 07/24/24 16:00 Temperature Pulse Rate 66 62 61 Respiratory Rate 15 16 14 Blood Pressure 143/64 H 130/66 135/62 Pulse Oximetry 98 92 92 Oxygen Delivery Simple Face Mask Nasal Cannula Nasal Cannula Oxygen Flow Rate 10 4 4 07/24/24 16:10 07/24/24 16:32 07/24/24 16:38 Temperature 37.4 C 36.2 C L Pulse Rate 61 61 Respiratory Rate 14 14 Blood Pressure 122/63 131/56 L Pulse Oximetry 94 94 93 Oxygen Delivery Nasal Cannula Nasal Cannula Oxygen Flow Rate 4 2 07/24/24 16:53 07/24/24 17:23 07/24/24 18:23 Temperature 36.4 C L 36.3 C L 36.3 C L Pulse Rate 60 62 64 Respiratory Rate 16 16 12 Blood Pressure 132/56 L 134/58 L 136/56 L Pulse Oximetry 93 94 93 Oxygen Delivery Oxygen Flow Rate 07/24/24 20:00 07/24/24 21:20 07/25/24 00:30 Temperature 37.0 C Pulse Rate 64 Respiratory Rate 18 Blood Pressure 115/52 L Pulse Oximetry 98 94 98 Oxygen Delivery Nasal Cannula Oxygen Flow Rate 2 07/25/24 01:30 07/25/24 04:30 07/25/24 04:59 Temperature 37.1 C 37.2 C Pulse Rate 60 60 Respiratory Rate 18 16 Blood Pressure 110/59 L 110/54 L Pulse Oximetry 98 97 97 Oxygen Delivery Oxygen Flow Rate 07/25/24 08:04 07/25/24 08:16 07/25/24 08:54 Temperature 36.3 C L Pulse Rate 60 70 Respiratory Rate 14 Blood Pressure 131/59 L Pulse Oximetry 94 Oxygen Delivery Room Air Oxygen Flow Rate 07/25/24 08:55 07/25/24 10:09 07/25/24 12:00 Temperature 36.4 C Pulse Rate 60 Respiratory Rate 14 Blood Pressure 126/55 L Pulse Oximetry 94 93 Oxygen Delivery Room Air Room Air Oxygen Flow Rate Intake/Output Intake/Output: Intake & Output 07/22/24 07/23/24 07/24/24 07/25/24 23:59 23:59 23:59 23:59 Intake Total 520 2240 Balance 520 2240 Meds/Results Medications: Active Medications Generic Name Dose Route Start Last Admin Trade Name Freq PRN Reason Stop Dose Admin Acetaminophen 500 mg 07/24/24 16:16 Acetaminophen 500 Mg Tablet PO Q6H PRN Pain Rated 1-3 Albuterol 1 puff 07/24/24 16:16 Albuterol Sulfate (*Sp) Aerosol 1 Puff INHALATION Q4H PRN bronchospasm Amlodipine Besylate 10 mg 07/25/24 09:00 07/25/24 08:53 Amlodipine Besylate 10 Mg Tablet BY MOUTH 10 mg DAILY RADHA Administration Aspirin 81 mg 07/24/24 21:00 07/25/24 08:53 Aspirin 81 Mg Enteric Tablet PO 81 mg Q12HR RADHA Administration Celecoxib 200 mg 07/24/24 20:00 07/25/24 08:53 Celecoxib 200 Mg Capsule PO 200 mg BIDWM RADHA Administration Diazepam 5 mg 07/24/24 16:16 Diazepam (*Crx) 5 Mg Tablet PO Q8H PRN Spasms Diphenhydramine HCl 25 mg 07/24/24 16:16 Diphenhydramine Hcl Inj 50 Mg/Ml Vial IV PUSH Q6H PRN Itching Famotidine 20 mg 07/24/24 21:00 07/25/24 08:54 Famotidine 20 Mg Tablet PO 20 mg Q12HR RADHA Administration Fluticasone Propionate 1 spray 07/25/24 09:00 07/25/24 08:54 Fluticasone Propionate 0.05% Na Spr 16 Gm Btl (*Bkc) NASAL 1 spray DAILY RADHA Administration Hydrochlorothiazide 25 mg 07/25/24 09:00 07/25/24 08:54 Hydrochlorothiazide 25 Mg Tablet PO 25 mg QAM RADHA Administration Hydromorphone HCl 1 mg 07/24/24 16:16 Hydromorphone Hcl Inj (*Crx) 1 Mg/Ml Syr IV PUSH Q2H PRN Breakthrough Pain Rated 7-10 or NPO Hydromorphone HCl 0.5 mg 07/24/24 16:16 Hydromorphone Hcl Inj (*Crx) 1 Mg/Ml Syr IV PUSH Q2H PRN Breakthrough Pain Rated 4-6 or NPO Ibuprofen 800 mg in 200 mls @ 400 mls/hr 07/24/24 16:16 Caldolor 800 Mg/200 Ml IVPB Q6H PRN Breakthrough Pain Rated 1-3 or NPO Naloxone HCl 0.1 mg 07/24/24 16:16 Naloxone Hcl 0.4 Mg/Ml Vial IV PUSH Q2M PRN Opiate Reversal Nebivolol 20 mg 07/25/24 09:00 07/25/24 08:54 Nebivolol Hcl 5 Mg Tablet PO 20 mg DAILY RADHA Administration Olmesartan 40 mg 07/25/24 09:00 07/25/24 08:53 Olmesartan Medoxomil 20 Mg Tablet PO 40 mg QAM RADHA Administration Ondansetron HCl 4 mg 07/24/24 16:16 Ondansetron Inj 4 Mg/2 Ml Vial IV PUSH Q4H PRN Nausea And Vomiting Oxycodone/Acetaminophen 1 tablet 07/24/24 16:16 07/24/24 23:20 Oxycodone/Acetaminophen (*Crx) 5-325 Mg Tablet PO 1 tablet Q4H PRN Administration Pain Rated 4-6 Oxycodone/Acetaminophen 1 tab 07/24/24 16:16 07/25/24 08:54 Oxycodone/Acetaminophen (*Crx) 10-325 Mg Tablet PO 1 tab Q6H PRN Administration Pain Rated 7-10 Polyethylene Glycol 17 gm 07/25/24 09:00 07/25/24 08:55 Polyethylene Glycol 3350 17 Gm Powd.Pack PO 17 gm QAM RADHA Administration Potassium Chloride 10 meq 07/25/24 09:00 07/25/24 08:54 Potassium Chloride 10 Meq Er Tablet PO 10 meq DAILY RADHA Administration Pravastatin Sodium 40 mg 07/24/24 21:00 07/24/24 20:53 Pravastatin Sodium 20 Mg Tablet PO 40 mg QHS RADHA Administration Senna/Docusate Sodium 2 tab 07/24/24 17:00 07/25/24 08:53 Senna/Docusate Sodium Tablet PO 2 tab BID RADHA Administration Sertraline HCl 50 mg 07/24/24 21:00 07/25/24 09:05 Sertraline Hcl 50 Mg Tablet PO 50 mg Q24H RADHA Administration Sitagliptin Phosphate 100 mg 07/25/24 09:00 07/25/24 08:53 Sitagliptin Phosphate 100 Mg Tablet PO 100 mg QAM RADHA Administration Umeclidinium/Vilanterol 1 puff 07/25/24 08:00 07/25/24 08:19 Umeclidinium/Vilanterol 62.5-25 Mcg Ellipta INHALATION 1 puff DAILYRT RADHA Administration Vitamin D 2,000 units 07/25/24 09:00 07/25/24 08:53 Cholecalciferol 1,000 Units Tablet PO 2,000 units DAILY RADHA Administration Radiology Results: ITS Impressions Knee X-Ray 07/24/24 15:24 IMPRESSION: 1. Recent right total knee arthroplasty. Labs Labs: Laboratory Results - last 24 hr 07/24/24 07/24/24 07/25/24 15:05 20:16 05:07 WBC 15.5 H RBC 4.53 Hgb 12.5 D Hct 40.3 MCV 89.0 MCH 27.6 MCHC 31.0 L RDW 15.7 H Plt Count 169 MPV 9.9 Immature Gran % (Auto) 0.6 H Neut % (Auto) 88.3 H Lymph % (Auto) 5.4 L [place] % (Auto) 5.6 Eos % (Auto) 0.0 Baso % (Auto) 0.1 L Lymph # (Auto) 0.83 L [place] # (Auto) 0.9 H Eos # (Auto) 0.0 Baso # (Auto) 0.0 Abs Immat Gran (auto) 0.09 H Absolute Neuts (auto) 13.7 H Absolute Nucleated RBC 0.000 Nucleated RBC % 0.0 Sodium 140 Potassium 3.9 Chloride 104 Carbon Dioxide 27 Anion Gap 9 BUN 18 H Creatinine 0.59 L Estim Creat Clear Calc 81 Estimated GFR > 60 Glucose 180 H POC Capillary Glucose 126 H 199 H Calcium 8.4 07/25/24 07/25/24 07:42 11:12 WBC RBC Hgb Hct MCV MCH MCHC RDW Plt Count MPV Immature Gran % (Auto) Neut % (Auto) Lymph % (Auto) [place] % (Auto) Eos % (Auto) Baso % (Auto) Lymph # (Auto) [place] # (Auto) Eos # (Auto) Baso # (Auto) Abs Immat Gran (auto) Absolute Neuts (auto) Absolute Nucleated RBC Nucleated RBC % Sodium Potassium Chloride Carbon Dioxide Anion Gap BUN Creatinine Estim Creat Clear Calc Estimated GFR Glucose POC Capillary Glucose 144 H 141 H Calcium
== END 2024-07-25 16:50 | disposition home health service (06) ==
LOC: ANHSURGERY 08:23 → ANH2MED 16:38
PROVIDERS: PCP Hospitalist; Visit Provider Orthopaedic Surgery
PROC: (CPT 27447; principal; 2024-07-24 10:30)
DX: M17.11 Unilateral primary osteoarthritis, right knee (principal); M25.761 Osteophyte, right knee; G89.18 Other acute postprocedural pain; G89.29 Other chronic pain; F12.90 Cannabis use, unspecified, uncomplicated; E66.9 Obesity, unspecified; Z68.36 Body mass index [BMI] 36.0-36.9, adult; Z79.51 Long term (current) use of inhaled steroids; Z79.82 Long term (current) use of aspirin; Z98.890 Other specified postprocedural states; Z90.49 Acquired absence of other specified parts of digestive tract; Z87.891 Personal history of nicotine dependence
CPT/HCPCS: 64447; 27447; 36415; 73560; 80048; 82948; 85025; 86850; 86900; 86901; 97110; 97116; 97161; 97165; 97530; A9270; C1713; C1776; J0171; J0690; J1100; J1885; J2003; J2250; J2270; J2405; J2704; J2795; J3010; J3370; J7030; J7120

== ENCOUNTER 2024-08-01 21:13 | Inpatient (IN) | payer MEDICARE, OTHER, SELFPAY ==
--- NOTE | ~2024-08-01 | US_ITS ---
EXAMINATION: US venous doppler [facility] DATE: 08/01/2024 23:33 INDICATION: Pain and swelling TECHNIQUE: Grayscale ultrasound images without and with compression and Doppler ultrasound images of the bilateral lower extremity veins were obtained. COMPARISON: None. FINDINGS: The visualized portions of right common femoral vein, profunda (deep) femoral vein, femoral vein, pop liteal vein, peroneal veins, posterior tibial veins, and greater saphenous vein outflow are patent. The visualized portions of left common femoral vein, profunda femoral vein, femoral vein, popliteal v ein and greater saphenous vein outflow are patent. Noncompressibility and absence of flow within the left posterior tibial and peroneal veins consistent with deep venous thrombosis. IMPRESSION: Deep venous thrombosis of the left posterior tibial and peroneal veins, as detailed above. Reviewed, dictated and finalized at location A. IMPRESSION: Deep venous thrombosis of the left posterior tibial and peroneal veins, as detmic mcclendon above.
[2024-08-01 20:40] VITALS: O2SAT 96
--- OUTSIDE RECORDS SUMMARY | 2024-08-01 20:50 | XMS_ITS | Clinical Summary ---
Author Organization [facility] Address [address] [place] [address] Phone Care Team Providers Care Production Tool Engineer Name Role Phone Unavailable Unavailable Unavailable Reason for Visit and Chief Complaint gynecologic procedure : endometrial biopsy - The Chief Complaint is: EMB Problems Includes: Problems addressed during this encounter and other active Problems All Visits Onset Date Resolved Date Provider Condition S tatus Chronic Obstructive Pulmonary Disease 11/17/2018 ROWAN INGRAM NP-BC Active Last Documented On 9 2:25PM ; [facility] Previous Colposcopy 01/15/2013 ROWAN INGRAM LARYNGOLOGIST-BC Active Last Documented On 3 12:53PM ; [facility] Note: - FAIZAN! HYPERLIPIDEMIA NEC/NOS 01/20/2012 CE BIRCH MD Active Last Documented On 2 3:01PM ; [facility] HYPERTENSION NOS 12/09/2011 CE BIRCH MD Ac tive Last Documented On 2 10:05AM ; [facility] Plan of Treatment - Clinical summary provided to patient - Last Documented On 02/23/2019 10:55AM ; [facility] Call if any episodes of post menopausal bleeding - assuming bx results from today are WNL. Advised f/u with pcp if right lower quadrant pain recurs - denies today. - Last Documented On 02/23/2019 10:55AM ; [facility] Education and Decision Aids were provided during visit for: INFORMED CONSENT DISCUSSION: Endometrial biopsy was discussed in detail including discomfort, insufficient specimen with need to repeat test, and rare incidence of uterine perforation. Patient expressed understanding of the above and consented to the procedure Last Documented On 9 10:32AM ; [facility] Assessments Includes: Assessments from this [...] procedure Last Documented On 9 10:32AM ; [facility] Medical Equipment - Implanted Devices Includes: Current Devices No Medical Equipment Recorded Medications Includes: Medications discussed during this encounter and other current Medications Current Medications (continue as prescribed) Co Q10 100MG Oral Capsule 11/17/2018 Provider: Diagnosis: Last Documented On 9 2:24PM By DESHAWN DOYLE ; [facility] Tribenzor 40-10-25MG Oral Tablet 11/17/2018 Provider : Diagnosis: Last Documented On 9 2:24PM By DESHAWN DOYLE ; [facility] Omeprazole 20MG Oral Tablet Delayed Release 2017 Provider: Diagnosis: Last Documented On 8 12:41PM By DONALDO DOYLE ; [facility] Bystolic 20MG Oral Tablet 11/16/2017 Provider: Diagnosis: Last Documented On 8 12:41PM By DONALDO DOYLE ; [facility] Fetzima 80MG Oral Capsule Extended Release 24 Hour 11/2017 Provider: Diagnosis: Last Documented On 8 12:42PM By DONALDO DOYLE ; [facility] Biotin 5000MCG Oral Capsule 11/16/2017 Provider: Diagnosis: Last Documented On 8 12:42PM By DONALDO DOYLE ; [facility] Fish Oil 1000MG Oral Capsule 11/16/2017 Provider : Diagnosis: Last Documented On 8 12:42PM By DONALDO DOYLE ; [facility] Lcoqltwevb-Hmbijrusdi-MPSP 40-10-25MG Oral Tablet 11/2017 Provider: Diagnosis: Last Documented On 8 12:43PM By DONALDO DOYLE ; [facility] Welchol 625 MG OR TABS 01/15/2013 Provider: Diagnosis: Last Documented On 01/15/2013 1:05PM By DONALDO DOYLE ; [facility] Bystolic 5 MG OR TABS 12/09/2011 Provider: Diagnosis: Last Documented On 12/09/2011 10:03AM By AV CORCORAN ; [facility] Spiriva HandiHaler 18 MCG IN CAPS 12/09/2011 Provide r: Diagnosis: Last Documented On 12/09/2011 10:04AM By AV CORCORAN ; [facility] Past Medications on file Keflex 500 MG OR CAPS 01/30/2008 - 02/06/2008 Provider : Diagnosis: Last Documented On 06/09/2009 12:22PM By VIRIDIANA PINTO ; [facility] Medications Administered Includes: Administered Medications from this encounter No Administered Medications Recorded Vital Signs Includes: Vital Signs from this encounter Vital Name 02/23/2019 10:40A 02/23/2019 10: 33A Blood Pressure Sitting L 130/70 BP Cuff Size Large Height (in) 62 Weight (lb) 190 Body Mass Index (kg/m2) 34.8 Body Surface Area (m2) 1.9 Last Documented: On 02/23/2019 10:40A M ; [facility] On 02/23/2019 10:38AM ; [facility] Results Includes: Results discussed during this encounter No Results Recorded For Specified Dates History of Present Illness Includes: History of Present Illness from this encounter No History of Present Illness Recorded Social History Description Last Updated Alcohol use 02/23/2019 Last Documented On 9 10:55AM ; [facility] Cigarette smoking 02/23/2019 Last Documented On 9 10:55AM ; [facility] In monogamous relationship 02/23/2019 Last Documented On 9 10:55AM ; [facility] Not using drugs 02/23/2019 Last Documented On 9 10:55AM ; [facility] Religion affiliation UATSDIN 9 Last Documented On 9 10:55AM ; [facility] Sexually active with 1 partners in the l ast year 02/23/2019 Last Documented On 9 10:55AM ; [facility] Smoking status : Current everyday smoker 02/23/2019 Last Documented On 9 10:55AM ; [facility] Social history unchanged 02/23/2019 Last Documented On 9 10:55AM ; [facility] Procedures and Surgical History Includes: Procedures from this encounter Procedures Code Diagnosis Performing Provider Service Location Service Date endometrial biopsy was performed ~Procedure Note: Done without complications.~Amt of Tissue: Scant with 2 passes~Uterine Sound Measurement: Approximately 6 cm after single tooth tenaculum applied to anterior cervix. Excellent hemostasis with silver nitrate x 2 [id number] Last Documented On 9 10:55AM ; [facility] a transvaginal ultrasound of the uterus is chris l [id number] Last Documented On 9 10:32AM ; [facility] no uterine enlargement Last Documented On 9 10:32AM ; [facility] no mass lesion of the uterus Last Documented On 9 10:32AM ; [facility] a [place]vaginal [place] [id number] Last Documented On 9 10:32AM ; [facility] no enlargement of the right ovary Last Documented On 9 10:32AM ; [facility] no enlargement of the left ovary Last Documented On 9 10:32AM ; [facility] no mass on the right ovary Last Documented On 9 10:32AM ; [facility] no mass on the left ovary Last Documented On 9 10:32AM ; [facility] endometrium thickness 7.0 mm Last Documented On 9 10:32AM ; [facility] the cul-de-sac had no fluid present Last Documented On 9 10:32AM ; [facility] Surgical History Last Updated Dilation + Curettage 02/23/2019 Last Documented On 9 10:55AM ; [facility] Surgical / procedural history orthroscop ic left knee surg ~d&c ~bile duct 02/23/2019 Last Documented On 9 10:55AM ; [facility] Medical History Includes: Medical History addressed during this encounter Description Last Updated Last pap smear date 11/17/2018 02/23/2019 Last Documented On 9 10:55AM ; [facility] FREQUENT UTI'S ~D & C 02/23/2019 Last Documented On 9 10:55AM ; [facility] 3 02/23/2019 Last Documented On 9 10:55AM ; [facility] History of a DXA of the lateral lumbar s pine was performed 02/12/2013 02/23/2019 Last Documented On 9 10:55AM ; [facility] History of benign essential hypertension 02/23/2019 Last Documented On 9 10:55AM ; [facility] History of chronic obstructive pulmonary disease 02/23/2019 Last Documented On 9 10:55AM ; [facility] History of complete colonoscopy 2009 Last Documented On 9 10:55AM ; [facility] History of hyperlipidemia 02/23/2019 Last Documented On 9 10:55AM ; [facility] History of menopause lmp more than 5 yrs ago 02/23/2019 Last Documented On 9 10:55AM ; [facility] History of Pap smear done 11/16/201702/09 Last Documented On 9 10:55AM ; [facility] History of screening mammogram was perfo rmed 08/23/2017 02/23/2019 Last Documented On 9 10:55AM ; [facility] LMP: 2003 02/23/2019 Last Documented On 9 10:55AM ; [facility] No recent change in medical history 02/09 Last Documented On 9 10:55AM ; [facility] Para 3 02/23/2019 Last Documented On 9 10:55AM ; [facility] Result: normal 02/23/2019 Last Documented On 9 10:55AM ; [facility] Result: normal 02/23/2019 Last Documented On 9 10:55AM ; [facility] Sexually active 02/23/2019 Last Documented On 9 10:55AM ; [facility] Family History Includes: Family [...] Active Last Documented On 9 2:23PM ; [facility] Codeine Allergy 06/09/2009 Active Last Documented On 9 2:23PM ; [facility] Encounters Encounter Provider Location Date Check-In Time Check-Out Time Diagnosis ENDOMETRIAL BIOPSY ROWAN INGRAM [facility] CHIEF DIVERSITY OFFICER 02/24/20 19 10:30AM 11:05AM Clinical Notes Includes: Clinical Notes from this encounter No Clinical Notes Recorded
--- OUTSIDE RECORDS SUMMARY | 2024-08-01 20:50 | XMS_ITS | Clinical Summary ---
Author Organization [facility] Address [address] [place] [address] Phone Care Team Providers Care Prepress Operator Name Role Phone Unavailable Unavailable Unavailable Reason for Visit and Chief Complaint DEXASCAN Problems Includes: Problems addressed during this encounter and other active Problems All Visits Onset Date Resolved Date Provider Condition S tatus Chronic Obstructive Pulmonary Disease 11/17/2018 ROWAN INGRAM NP-BC Active Last Documented On 9 2:25PM ; [facility] Previous Colposcopy 01/15/2013 ROWAN INGRAM ROUSTABOUT SUPERVISOR-BC Active Last Documented On 3 12:53PM ; [facility] Note: - FAIZAN! HYPERLIPIDEMIA NEC/NOS 01/20/2012 CE BIRCH MD Active Last Documented On 2 3:01PM ; [facility] HYPERTENSION NOS 12/09/2011 CE BIRCH MD Ac tive Last Documented On 2 10:05AM ; [facility] Plan of Treatment No Plan of Treatment [...] On 8 12:42PM By DONALDO DOYLE ; [facility] Fish Oil 1000MG Oral Capsule 11/16/2017 Provider : Diagnosis: Last Documented On 8 12:42PM By DONALDO DOYLE ; [facility] Cogqxwswhs-Rvlfmnxeso-NCHN 40-10-25MG Oral Tablet 11/2017 Provider: Diagnosis: Last Documented On 8 12:43PM By DONALDO DOYLE ; [facility] Welchol 625 MG OR TABS 01/15/2013 Provider: Diagnosis: Last Documented On 01/15/2013 1:05PM By DONALDO DOYLE ; [facility] Bystolic 5 MG OR TABS 12/09/2011 Provider: Diagnosis: Last Documented On 12/09/2011 10:03AM By AV CORCORAN ; [facility] Spiriva HandiHaler 18 MCG IN CAPS 12/09/2011 Provide r: Diagnosis: Last Documented On 12/09/2011 10:04AM By AV CORCORAN ; [facility] Medications Administered Includes: Administered Medications from this [...] On 9 2:23PM ; [facility] Codeine Allergy 06/09/2009 Active Last Documented On 9 2:23PM ; [facility] Encounters Encounter Provider Location Date Check-In Time Check-Out Time Diagnosis STEPHANIE INGRAM [facility] FIELD COORDINATOR 11/30/2018 9:58AM 10:37AM Clinical Notes Includes: Clinical Notes from this encounter No Clinical Notes Recorded
--- OUTSIDE RECORDS SUMMARY | 2024-08-01 20:50 | XMS_ITS | Clinical Summary ---
Author Organization [facility] Address [address] [place] [address] Phone Care Team Providers Care Marble Coper Name Role Phone Unavailable Unavailable Unavailable Reason for Visit and Chief Complaint gynecologic annual exam - The Chief Complaint is: Annual Problems Includes: Problems addressed during this encounter and other active Problems All Visits Onset Date Resolved Date Provider Condition S tatus Chronic Obstructive Pulmonary Disease 11/17/2018 ROWAN INGRAM NP-BC Active Last Documented On 9 2:25PM ; [facility] Previous Colposcopy 01/15/2013 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 HYPERLIPIDEMIA NEC/NOS 01/20/2012 EC BIRCH MD Active Last Documented On 2 3:01PM ; [facility] HYPERTENSION NOS 12/09/2011 CE BIRCH MD Ac tive Last Documented On 2 10:05AM ; [facility] Plan of Treatment - Follow-up visit 1 year or as needed - Last Documented On 11/16/2017 1:10PM ; [facility] - Clinical summary provided to patient - Last Documented On 11/16/2017 1:10PM ; [facility] Instructions to patient Instructions for patient : B reast Self Exam discussed Last Documented On 8 12:16PM ; [facility] Lose weight Last Documented On 8 12:17PM ; [facility] Colonoscopy Handout given to patient Last Documented On 8 12:17PM ; [facility] Education and Decision Aids were provided during visit for: Patient Education: Daily rsahi cium and vitamin D Last Documented On 8 12:16PM ; [facility] Patient Education: weight be aring exercise Last Documented On 8 12:16PM ; [facility] Smoking cessation advised Last Documented On 8 12:47PM ; [facility] Assessments Includes: Assessments from this encounter Findings - NORMAL FEMALE EXAM - Last Documented On 11/16/2017 1:10PM ; [facility] - Screening Malig. Neoplasm Rectum - Last Documented On 11/16/2017 1:10PM ; [facility] Instructions Includes: Instructions from this encounter Instructions to patient Instructions for patient : B reast Self Exam discussed Last Documented On 8 12:16PM ; [facility] Lose weight Last Documented On 8 12:17PM ; [facility] Colonoscopy Handout given to patient Last Documented On 8 12:17PM ; [facility] Education and Decision Aids were provided during visit for: Patient Education: Daily rashi cium and vitamin D Last Documented On 8 12:16PM ; [facility] Patient Education: weight be aring exercise Last Documented On 8 12:16PM ; [facility] Smoking cessation advised Last Documented On 8 12:47PM ; [facility] Medical Equipment - Implanted Devices Includes: Current Devices No Medical Equipment Recorded Medications Includes: Medications discussed during this encounter and other current Medications Discontinued / Stopped on this date on 12/09/2011 Tribenzor 40-10-25 MG OR TABS Provider: Diagnosis: Last Documented On 8 12:42PM By DONALDO DOYLE ; [facility] Current Medications (continue as prescribed) Co Q10 100MG Oral Capsule 11/17/2018 Provider: Diagnosis: Last Documented On 9 2:24PM By DESHAWN DOYLE ; [facility] Tribenzor 40-10-25MG Oral Tablet 11/17/2018 Provider : Diagnosis: Last Documented On 9 2:24PM By DESHAWN DOYLE ; [facility] Omeprazole 20MG Oral Tablet Delayed Release 2017 Provider: Diagnosis: Last Documented On 8 12:41PM By DONALDO DOYLE ; [facility] Bystolic 20MG Oral Tablet 11/16/2017 Provider: Diagnosis: Last Documented On 8 12:41PM By DONALDO DOYLE ; [facility] Fetzima 80MG Oral Capsule Extended Release 24 Hour 11/2017 Provider: Diagnosis: Last Documented On 8 12:42PM By DONALDO DOYLE ; [facility] Biotin 5000MCG Oral Capsule 11/16/2017 Provider: Diagnosis: Last Documented On 8 12:42PM By DONALDO DOYLE ; [facility] Fish Oil 1000MG Oral Capsule 11/16/2017 Provider : Diagnosis: Last Documented On 8 12:42PM By DONALDO DOYLE ; [facility] Sqeosrywcn-Xwymkryarp-LMBF 40-10-25MG Oral Tablet 11/2017 Provider: Diagnosis: Last Documented On 8 12:43PM By DONALDO DOYLE ; [facility] Welchol 625 MG OR TABS 01/15/2013 Provider: Diagnosis: Last Documented On 01/15/2013 1:05PM By DONALDO DOYLE ; [facility] Bystolic 5 MG OR TABS 12/09/2011 Provider: Diagnosis: Last Documented On 12/09/2011 10:03AM By AV CORCORAN ; [facility] Spiriva HandiHaler 18 MCG IN CAPS 12/09/2011 Provide r: Diagnosis: Last Documented On 12/09/2011 10:04AM By AV CORCORAN ; [facility] Past Medications on file Keflex 500 MG OR CAPS 01/30/2008 - 02/06/2008 Provider : Diagnosis: Last Documented On 06/09/2009 12:22PM By VIRIDIANA PINTO ; [facility] Medications Administered Includes: Administered Medications from this encounter No Administered Medications Recorded Vital Signs Includes: Vital Signs from this encounter Vital Name 11/16/2017 12:51P Blood Pressure Sitting L 148/70 BP Cuff Size Large Height (in) 62 Weight (lb) 200 Body Mass Index (kg/m2) 36.6 Body Surface Area (m2) 1.9 Last Documented: On 11/16/2017 12:54P M ; [facility] Results Includes: Results discussed during this encounter No Results Recorded For Specified Dates History of Present Illness Includes: History of Present Illness from this encounter HPI PREM GAMBINO is a 62 year old female. - Medication list reviewed - PRIMARY CARE PROVIDER : Dr Turcios Social History Description Last Updated Alcohol use 11/16/2017 Last Documented On 8 1:10PM ; [facility] In monogamous relationship 11/16/2017 Last Documented On 8 1:10PM ; [facility] Non-smoker 11/16/2017 Last Documented On 8 1:10PM ; [facility] Not using drugs 11/16/2017 Last Documented On 8 1:10PM ; [facility] Sexually active with 1 partners in the l ast year 11/16/2017 Last Documented On 8 1:10PM ; [facility] Smoking status : Current everyday smoker 11/16/2017 Last Documented On 8 1:10PM ; [facility] Holiness affiliation YARSANISM 8 Last Documented On 8 1:10PM ; [facility] Procedures and Surgical History Includes: Procedures from this encounter Procedures Code Diagnosis Performing Provider Service L ocation Service Date low fat diet Last Documented On 8 12:17PM ; [facility] fecal occult blood test was negative [id number] Last Documented On 8 12:16PM ; [facility] normal history of Pap smear of cervix Last Documented On 8 12:56PM ; [facility] Cervical Pap Smear performed [id number] Last Documented On 8 12:17PM ; [facility] Surgical History Last Updated Surgical / procedural histor y orthroscopic left knee surg ~d&c ~bile duct 11/16/2017 Last Documented On 8 1:10PM ; [facility] Dilation + Curettage 11/16/2017 Last Documented On 8 1:10PM ; [facility] Medical History Includes: Medical History addressed during this encounter Description Last Updated History of complete colonoscopy [address] chaney repeat in 10 years 11/16/2017 Last Documented On 8 1:10PM ; [facility] Result: normal @cne 11/16/2017 Last Documented On 8 1:10PM ; [facility] History of chronic obstructive pulmonary disease 11/16/2017 Last Documented On 8 1:10PM ; [facility] section 11/16/2017 Last Documented On 8 1:10PM ; [facility] Sexually active 11/16/2017 Last Documented On 8 1:10PM ; [facility] Vaginal delivery 11/16/2017 Last Documented On 8 1:10PM ; [facility] History of Pap smear done 01/15/201311/2017 Last Documented On 8 1:10PM ; [facility] History of screening mammogram was perfo rmed 09/201711/16/2017 Last Documented On 8 1:10PM ; [facility] Result: normal 11/16/2017 Last Documented On 8 1:10PM ; [facility] FREQUENT UTI'S ~D & C 11/16/2017 Last Documented On 8 1:10PM ; [facility] 3 11/16/2017 Last Documented On 8 1:10PM ; [facility] History of benign essential hypertension 11/16/2017 Last Documented On 8 1:10PM ; [facility] History of hyperlipidemia 11/16/2017 Last Documented On 8 1:10PM ; [facility] History of menopause lmp more than 5 yrs ago 11/16/2017 Last Documented On 8 1:10PM ; [facility] LMP: 2003 11/16/2017 Last Documented On 8 1:10PM ; [facility] Para 3 11/16/2017 Last Documented On 8 1:10PM ; [facility] Family History Includes: Family History addressed during this encounter Description Last Updated Maternal history of diabetes mellitus si ster, mother 11/16/2017 Last Documented On 8 1:10PM ; [facility] Maternal history of hypertension mother 11/16/2017 Last Documented On 8 1:10PM ; [facility] Paternal history of family history of he art disease father 11/16/2017 Last Documented On 8 1:10PM ; [facility] Review of Systems Includes: Review of Systems [...] 9 2:23PM ; [facility] Codeine Allergy 06/09/2009 Active Last Documented On 9 2:23PM ; [facility] Encounters Encounter Provider Location Date Check-In Time Check-Out Time Diagnosis 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 Neoplasm Rectum,Normal Female Exam Clinical Notes Includes: Clinical Notes from this encounter No Clinical Notes Recorded
--- OUTSIDE RECORDS SUMMARY | 2024-08-01 20:50 | XMS_ITS | Encounter Summary ---
Author Organization [facility] Address [address] [place] [id number] Care Team Providers Care Book Canvasser Name Role Phone Sintia Santoyo WOOD TANK BUILDER Unavailable [phone] Davey Myles WOOD TANK BUILDER Unavailable [phone] Charlie Mtz MD Primary Care Provider [phone] Reason for Visit * Reason Onset Date Comments Medical Question/Miscellaneous 07/09/2024 Encounter Details Date Type Department Care Team (Late st Contact Info) Description 07/09/2024 Telephone Family Phys[facility] [address] [place] [address] Charlie Mtz MD [address] [place] [id number] Medical Question/Miscellaneous Social History Tobacco Use Types Packs/Day Years Used Date Smoking Tobacco: Former Cigarettes 0.8 28 0 06/25/1993 - 06/25/2021 Smokeless Tobacco: Former Quit: 06/25/2021 Alcohol Use Standard Drinks/Week Comments No 0 (1 standard drink = 0.6 oz pur e alcohol) [facility] Utilities Answer Date Recorded In the past 12 months has [employer], gas, oil, or water [employer] threatened to shut off services in your [...] often do you attend chur ch or alevism services? More than 4 times per year 03/18/2023 Do you belong to any clubs o r organizations such as baptist groups, unions, fraternal or athletic groups, or [...] place to sleep or slept in a senior care (including now)? 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 Requesting EKG tracing from April faxed to them at [phone]. Sent as requested. * Telephone Encounter - Stephany Irwin - 07/09/2024 3:04 PM CDT Medical Question/Miscellaneous Caller???s Concern: Tasia calling for EKG to be sent over to [facility] for Patient's appointment tomorrow 07/10/2024 at 10 AM. TIMEKEEPING SUPERVISOR transferred to the practice. Does message need [...] Date Last Indicated Resolved Time COVID: Suspected 08/01/2024 08/01/2024 08/01/2024 10:03 AM CDT documented as of this encounter Care Teams Book Canvasser Relationship Specialty Start Date End Date Charlie Mtz MD [address] [place] [address] PCP - General Family Medicine 05/28/21 Sintia Santoyo NP Nurse Practitioner Obstetrics and Gynecology 07/13/18 Davey Myles NP Nurse Practitioner Family Practice 10/16/20 documented as of this encounter
--- OUTSIDE RECORDS SUMMARY | 2024-08-01 20:50 | XMS_ITS | Clinical Summary ---
Author Organization [facility] Address [address] [place] [address] Phone Care Team Providers Care Cotton Bag Sewer Name Role Phone Unavailable Unavailable Unavailable Reason for Visit and Chief Complaint gynecologic annual exam - The Chief Complaint is: Annual Problems Includes: Problems addressed during this encounter and other active Problems Current Visit Onset Date Resolved Date Provider Conditio n Status Chronic Obstructive Pulmonary Disease 11/17/2018 ROWAN INGRAM NP-BC Active Last Documented On 9 2:25PM ; [facility] Past Visits Onset Date Resolved Date Provider Condition Status Previous Colposcopy 01/15/2013 ROWAN INGRAM NP-BC Active Last Documented On 01/15/2013 12:53PM ; [facility] Note: - FAIZAN! HYPERLIPIDEMIA NEC/NOS 01/20/2012 CE BIRCH MD Active Last Documented On 2 3:01PM ; [facility] HYPERTENSION NOS 12/09/2011 CE BIRCH MD Ac tive Last Documented On 2 10:05AM ; [facility] Plan of Treatment - Clinical summary provided to patient - Last Documented On 11/17/2018 2:42PM ; [facility] Instructions to patient Instructions for patient : B reast Self Exam discussed Last Documented On 9 2:01PM ; [facility] Lose weight Last Documented On 9 2:02PM ; [facility] Colonoscopy Handout given to patient Last Documented On 9 2:02PM ; [facility] Education and Decision Aids were provided during visit for: Patient Education: Daily rashi cium and vitamin D Last Documented On 9 2:01PM ; [facility] Patient Education: weight be aring exercise Last Documented On 9 2:01PM ; [facility] Smoking cessation advised Last Documented On 9 2:02PM ; [facility] Assessments Includes: Assessments from this encounter Findings - NORMAL FEMALE EXAM - Last Documented On 11/17/2018 2:42PM ; [facility] - Screening Malig. Neoplasm Rectum - Last Documented On 11/17/2018 2:42PM ; [facility] Instructions Includes: Instructions from this encounter Instructions to patient Instructions for patient : B reast Self Exam discussed Last Documented On 9 2:01PM ; [facility] Lose weight Last Documented On 9 2:02PM ; [facility] Colonoscopy Handout given to patient Last Documented On 9 2:02PM ; [facility] Education and Decision Aids were provided during visit for: Patient Education: Daily rashi cium and vitamin D Last Documented On 9 2:01PM ; [facility] Patient Education: weight be aring exercise Last Documented On 9 2:01PM ; [facility] Smoking cessation advised Last Documented On 9 2:02PM ; [facility] Medical Equipment - Implanted Devices Includes: Current Devices No Medical Equipment Recorded Medications Includes: Medications discussed during this encounter and other current Medications Discontinued / Stopped on this date on 11/16/2017 Ergocalciferol [id number] Oral Capsule Pro vider: Diagnosis: Last Documented On 9 2:24PM By DESHAWN DOYLE ; [facility] Current Medications (continue as prescribed) Co Q10 100MG Oral Capsule 11/17/2018 Provider: Diagnosis: Last Documented On 9 2:24PM By DESHAWN DOYLE ; [facility] Tribenzor 40-10-25MG Oral Tablet 11/17/2018 Provider : Diagnosis: Last Documented On 9 2:24PM By DESHAWN DOYLE ; [facility] Omeprazole 20MG Oral Tablet Delayed Release 2017 Provider: Diagnosis: Last Documented On 8 12:41PM By DONALDO DOYLE ; [facility] Bystolic 20MG Oral Tablet 11/16/2017 Provider: Diagnosis: Last Documented On 8 12:41PM By DONALDO DOYLE ; [facility] Fetzima 80MG Oral Capsule Extended Release 24 Hour 11/2017 Provider: Diagnosis: Last Documented On 8 12:42PM By DONALDO DOYLE ; [facility] Biotin 5000MCG Oral Capsule 11/16/2017 Provider: Diagnosis: Last Documented On 8 12:42PM By DONALDO DOYLE ; [facility] Fish Oil 1000MG Oral Capsule 11/16/2017 Provider : Diagnosis: Last Documented On 8 12:42PM By DONALDO DOYLE ; [facility] Bzbhxzeyzp-Pcnoqrydwh-TIVC 40-10-25MG Oral Tablet 11/2017 Provider: Diagnosis: Last Documented On 8 12:43PM By DONALDO DOYLE ; [facility] Welchol 625 MG OR TABS 01/15/2013 Provider: Diagnosis: Last Documented On 01/15/2013 1:05PM By DONALDO DOYLE ; [facility] Bystolic 5 MG OR TABS 12/09/2011 Provider: Diagnosis: Last Documented On 12/09/2011 10:03AM By AV CORCORAN ; [facility] Spiriva HandiHaler 18 MCG IN CAPS 12/09/2011 Provide r: Diagnosis: Last Documented On 12/09/2011 10:04AM By AV CORCORAN ; [facility] Past Medications on file Keflex 500 MG OR CAPS 01/30/2008 - 02/06/2008 Provider : Diagnosis: Last Documented On 06/09/2009 12:22PM By VIRIDIANA PINTO ; [facility] Medications Administered Includes: Administered Medications from this encounter No Administered Medications Recorded Vital Signs Includes: Vital Signs from this encounter Vital Name 11/17/2018 02:14P Blood Pressure Sitting L 122/72 BP Cuff Size Large Height (in) 62 Weight (lb) 192 Body Mass Index (kg/m2) 35.1 Body Surface Area (m2) 1.9 Last Documented: On 11/17/2018 2:19PM ; [facility] Results Includes: Results discussed during this encounter No Results Recorded For Specified Dates History of Present Illness Includes: History of Present Illness from this encounter PEDRITO GAMBINO is a 63 year old female. - Medication list reviewed - PRIMARY CARE PROVIDER : Dr Tompkins - No vertigo Social History Description Last Updated Pentecostal affiliation [employer] 9 Last Documented On 9 2:11PM ; [facility] Alcohol use 11/17/2018 Last Documented On 9 2:42PM ; [facility] Cigarette smoking 11/17/2018 Last Documented On 9 2:42PM ; [facility] In monogamous relationship 11/17/2018 Last Documented On 9 2:42PM ; [facility] Not using drugs 11/17/2018 Last Documented On 9 2:42PM ; [facility] Sexually active with 1 partners in the l ast year 11/17/2018 Last Documented On 9 2:42PM ; [facility] Smoking status : Current everyday smoker 11/17/2018 Last Documented On 9 2:42PM ; [facility] Social history unchanged 11/17/2018 Last Documented On 9 2:42PM ; [facility] Procedures and Surgical History Includes: Procedures from this encounter Procedures Code Diagnosis Performing Provider Service L ocation Service Date low fat diet Last Documented On 9 2:02PM ; [facility] Preventive Medicine Services (medicare pt) G0101 Last Documented On 9 2:17PM ; [facility] Pap smear done [id number] Last Documented On 9 2:02PM ; [facility] fecal occult blood test was negative [id number] Last Documented On 9 2:01PM ; [facility] Cervical Pap Smear performed Q0091 Last Documented On 9 2:02PM ; [facility] Surgical History Last Updated Dilation + Curettage 02/23/2019 Last Documented On 9 2:11PM ; [facility] Surgical / procedural history orthroscop ic left knee surg ~d&c ~bile duct 02/23/2019 Last Documented On 9 2:11PM ; [facility] Medical History Includes: Medical History addressed during this encounter Description Last Updated FREQUENT UTI'S ~D & C 02/23/2019 Last Documented On 9 2:11PM ; [facility] 3 02/23/2019 Last Documented On 9 2:11PM ; [facility] History of benign essential hypertension 02/23/2019 Last Documented On 9 2:11PM ; [facility] History of chronic obstructive pulmonary disease 02/23/2019 Last Documented On 9 2:11PM ; [facility] History of hyperlipidemia 02/23/2019 Last Documented On 9 2:11PM ; [facility] History of menopause lmp more than 5 yrs ago 02/23/2019 Last Documented On 9 2:11PM ; [facility] LMP: 2003 02/23/2019 Last Documented On 9 2:11PM ; [facility] Para 3 02/23/2019 Last Documented On 9 2:11PM ; [facility] No recent change in medical history 12/2018 Last Documented On 9 2:42PM ; [facility] Sexually active 11/17/2018 Last Documented On 9 2:42PM ; [facility] History of a DXA of the lateral lumbar s pine was performed 02/12/2013 11/17/2018 Last Documented On 9 2:42PM ; [facility] History of complete colonoscopy 12/2018 Last Documented On 9 2:42PM ; [facility] History of Pap smear done 11/16/201712/2018 Last Documented On 9 2:42PM ; [facility] History of screening mammogram was perfo rmed 08/23/2017 11/17/2018 Last Documented On 9 2:42PM ; [facility] Result: normal 11/17/2018 Last Documented On 9 2:42PM ; [facility] Result: normal 11/17/2018 Last Documented On 9 2:42PM ; [facility] Family History Includes: Family History addressed during this encounter Description Last Updated Family history unchanged 11/17/2018 Last Documented On 9 2:42PM ; [facility] Maternal history of hypertension mother 11/17/2018 Last Documented On 9 2:42PM ; [facility] Paternal grandmother's histo ry of family history of heart disease pgm-swollen heart 11/17/2018 Last Documented On 9 2:42PM ; [facility] Sororal history of diabetes mellitus sis ter. Mother is borderline 11/17/2018 Last Documented On 9 2:42PM ; [facility] Spouse name: Shayne 01/15/2013 Last Documented On 9 2:11PM ; [facility] Family medical history of high blood pre ssure 06/09/2009 Last Documented On 9 2:11PM ; [facility] Review of Systems Includes: Review of [...] Active Last Documented On 9 2:23PM ; [facility] Codeine Allergy 06/09/2009 Active Last Documented On 9 2:23PM ; [facility] Encounters Encounter Provider Location Date Check-In Time Check-Out Time Diagnosis ANNUAL SCRAP STRIPPER HAND EXAM ROWAN INGRAM [facility] HEAD LOADER 11/18/19 19 1:59PM 2:44PM Screening Malig. Neoplasm Rectum,Normal Female Exam Clinical Notes Includes: Clinical Notes from this encounter No Clinical Notes Recorded
--- OUTSIDE RECORDS SUMMARY | 2024-08-01 20:50 | XMS_ITS | Clinical Summary ---
Author Organization [facility] Virtual Care Address [address] [place] [phone] Phone Care Team Providers Care Senior Market Research Analyst Name Role Phone Sintia Santoyo LOG LOADER HELPER Unavailable [phone] Davey Myles LOG LOADER HELPER Unavailable [phone] Charlie Mtz MD Primary Care Provider [phone] Allergies Active Allergy Reactions Criticality Noted Date Comments Atorvastatin Muscle pain Medium 04/18/2019 Codeine Agitation Low Tetanus Vaccines And Toxoid Other (See comments) Low Local reaction Medications diazePAM (VALIUM) 2 mg tablet Take 1 tablet (2 mg total) by mouth every 6 (six) hours as needed for anxiety 15 tablet 3 Active Additional Information Patient taking differently:2 mg oral Every 6 hours PRN, anxiety,Taking 1/2 tab, Reported on 07/17/2024 meloxicam (MOBIC) 7.5 mg tablet Take 1 tablet (7.5 mg total) by mouth daily 90 tablet 4 Active albuterol HFA (Ventolin HFA) 90 mcg/actuation inhalerIndicat ions:Centrilob ular emphysema (HCC) Inhale 2 puffs every 4 (four) hours as needed for wheezing 1 each 2 4 Active fluticasone propionate (FLONASE) 50 mcg/actuation nasal sprayIndicatio ns:Seasonal allergies Administer 2 sprays into each nostril daily as needed for allergies 16 g 3 4 12/19/19 25 Active Bystolic 20 mg tablet Take 1 tablet (20 mg total) by mouth daily 90 tablet 3 4 01/23/20 25 Active olmesartan-amL ODIPin-hcthiaz id 40-10-25 mg tablet Take 1 tablet by mouth daily 90 tablet 3 4 01/23/20 25 Active Tradjenta 5 mg tablet Take 1 tablet (5 mg total) by mouth daily 90 tablet 3 4 01/23/20 25 Active tiZANidine (ZANAFLEX) 4 mg tablet Take 1 tablet (4 mg total) by mouth every 6 (six) hours as needed for muscle spasms 30 tablet 3 4 Active pravastatin (PRAVACHOL) 40 mg tablet Take 1 tablet (40 mg total) by mouth nightly 90 tablet 5 Active umeclidinium-v ilanteroL (Anoro Ellipta) 62.5-25 mcg/actuation blister with device INHALE 1 PUFF BY MOUTH EVERY DAY - (DISCARD 6 WEEKS AFTER REMOVAL FROM FOIL TRAY OR WHEN COUNTER READS ZERO, WHICHEVER COMES FIRST) 3 each 5 Active omeprazole (PriLOSEC) 20 mg capsule TAKE ONE CAPSULE BY MOUTH EVERY DAY NEEDED 90 capsule 1 5 Active sertraline (ZOLOFT) 50 mg tablet Take 2 tablets (100mg total) by mouth every day 180 tablet 2 5 Active biotin 1 mg tablet Take 1 tablet (1,000 mcg total) by mouth daily 07/18/19 25 Discontin ued(Patie nt Reported) aspirin 81 mg enteric coated tablet Take 1 tablet (81 mg total) by mouth daily 07/18/19 25 Discontin ued(Patie nt Reported) UNABLE TO FIND [employer] Collagen 07/18/19 25 Discontin ued(Patie nt Reported) UNABLE TO FIND Tu Trim fit 07/18/19 25 Discontin ued(Patie nt Reported) cholecalcifero l (VITAMIN D-3) 2000 unit capsule Take 1 capsule (2,000 Units total) by mouth daily 60 capsule 3 3 07/18/19 25 Discontin ued(Patie nt Reported) potassium chloride ER (KLOR-CON) 10 mEq CR tablet Take 1 tablet/capsule (10 mEq total) by mouth 2 (two) times a day 180 tablet/capsu le 3 5 07/18/19 25 Discontin ued(Patitran nt Reported) ciprofloxacin- dexAMETHasone (CIPRODEX) otic suspensionIndi cations:Acute diffuse otitis externa of left ear Administer 4 drops into the left ear 2 (two) times a day 7.5 mL 5 07/18/19 25 Discontin ued(Thera py completed ) cephalexin (KEFLEX) 500 mg capsuleIndicat ions:Acute non-recurrent maxillary sinusitis Take 1 capsule (500 mg total) by mouth 2 (two) times a day for 7 days 14 capsule 5 07/18/19 25 Discontin ued(Patitran nt Reported) Active Problems Problem Noted Date Diagnosed Date Other acute pulmonary embolism without acute cor pulmonale 08/01/2024 Otalgia, left ear 07/17/2024 Assessment & Plan [...] loss Assessment & Plan (06/16/2023 1:29 PM SNUBBER): Stable, generally well controlled, patient reports no [...] control Assessment & Plan (05/28/2021 1:00 PM SNUBBER): Not well controlled, encouraged patient continue to [...] options Assessment & Plan (06/16/2023 1:30 PM SNUBBER): Stable, well controlled, improving; patient reports she is more physically active, engaging in social activities, re-engage with rastafari Would like to decrease Zoloft given vivid [...] 02/22/2020 Assessment & Plan (02/22/2020 12:16 PM SNUBBER): Small patch of atopic dermatitis on mid [...] today. Assessment & Plan (04/17/2019 2:34 PM SNUBBER): Repeat CBC in 2 weeks. She was previously taking steroids during her ED visit which may have falsely elevated her white blood count. Vitamin D deficiency 04/17/2019 Assessment & Plan (02/22/2020 9:32 AM SNUBBER): Last vitamin d level 12/07/2019 52. Recommend vitamin d3 2000 international units once daily. Assessment & Plan (11/24/2019 3:46 PM CDT): Continue vitamin d2 50,000 International units once weekly and repeat vitamin d level today. Assessment & Plan (04/17/2019 2:34 PM SNUBBER): [place] [address] units once weekly. Get vitamin-D level in 2 weeks with labs. High risk of cardiac event 04/17/2019 Assessment & Plan (09/02/2022 4:40 PM CDT): Stable, well controlled; continue pravastatin 40 mg daily; continue ASA 81 mg daily Encourage risk modifications Assessment & Plan (04/17/2019 2:34 PM SNUBBER): Patient's ASCVD risk score is 13.3%. I recommended that she be on statin instead of bile acid sequestrant for CV prophylaxis. Start atorvastatin 10 mg daily. Mixed hyperlipidemia 04/17/2019 Assessment & Plan (12/19/2023 10:41 AM CDT): Chronic, stable, well controlled Continue Pravastatin 40 mg daily Assessment & Plan (06/16/2023 1:29 PM SNUBBER): Stable, well controlled, lipids in optimal range Continue pravastatin 40 mg daily Assessment & Plan (06/09/2022 4:56 PM SNUBBER): Well controlled, lipids at target Continue pravastatin 40 mg nightly Assessment & Plan (12/15/2021 4:59 PM CDT): Stable, well controlled; continue pravastatin 40 mg nightly Assessment & Plan (09/08/2021 2:06 PM CDT): Stable, generally well controlled; continue pravastatin 40 mg nightly Assessment & Plan (07/09/2021 11:01 AM CDT): Stable, well controlled; continue pravastatin 40 mg nightly Assessment & Plan (05/28/2021 12:58 PM SNUBBER): Stable, well controlled last lipid panel demonstrated normal total cholesterol, LDL mildly elevated 114; continue to monitor encourage low-fat high-fiber diet Continue pravastatin 40 mg daily Assessment & Plan (11/30/2020 1:37 PM CDT): Lipids are well controlled on pravastatin 40 mg once daily. Assessment & Plan (02/22/2020 12:13 PM SNUBBER): Lipids are well controlled on pravastatin 40 mg once daily. Assessment & Plan (11/24/2019 3:43 PM CDT): Continue pravastatin 40 mg daily. Repeat lipid profile today. Recommended Mediterranean diet. Do not think keto diet facilitates a heart healthy diet. Assessment & Plan (09/07/2019 1:31 PM CDT): Continue pravastatin 40 mg daily. Repeat lipid profile in November. Assessment & Plan (04/17/2019 2:35 PM SNUBBER): Lipid abnormalities are unchanged. Nutritional counseling was [...] visit; 124/76 Continue Bystolic 20 mg and Bxbuaawenl-lwpambxhms-SYDV 40-10-25 mg daily Assessment & Plan (08/08/2023 1:14 PM CDT): Stable, well controlled; blood pressure goals; continue Bystolic 20 mg daily, wuqduqwdpl-upzjwjrgcn-hahtdtrhzqtkqayycfl 40-10-25 mg Assessment & Plan (06/16/2023 1:29 PM SNUBBER): Stable, well controlled, blood pressure at goal; patient reports no chest pain or headaches Continue Bystolic 20 mg daily, pyeoibavof-tcpwepvuar-bqqewaixflkmiylejra 40-10-251 tablet daily; Assessment & Plan (09/02/2022 4:39 PM CDT): Stable, well controlled; blood pressure at target No chest pain or headaches Continue Bystolic 20 mg daily, Tribenzor 40-10-251 tablet daily Assessment & Plan (06/09/2022 4:57 PM SNUBBER): Stable, blood pressure at target Continue Tribenzor [...] daily Assessment & Plan (05/28/2021 12:59 PM SNUBBER): Stable, generally well controlled; blood pressure mildly [...] appointment. Assessment & Plan (02/22/2020 12:14 PM SNUBBER): Hypertension is improved. Continue current treatment regimen. [...] appointment. Assessment & Plan (04/17/2019 2:32 PM SNUBBER): Hypertension is improving with treatment. Continue current [...] cessation Assessment & Plan (05/28/2021 1:02 PM SNUBBER): Patient continues to smoke, smoking about 1 pack per day Encouraged patient to continue to work towards complete cessation Patient understands importance of smoking, but is not yet gotten to change mind set Assessment & Plan (11/30/2020 1:39 PM CDT): Encourage smoking cessation. Assessment & Plan (02/22/2020 12:12 PM SNUBBER): Encourage smoking cessation. Had quit for almost [...] phone. Assessment & Plan (04/17/2019 2:33 PM SNUBBER): Encourage smoking cessation. Assessment & Plan (11/15/2018 [...] daily Assessment & Plan (06/09/2022 4:59 PM SNUBBER): Stable, last A1c was 6.2; at target [...] daily Assessment & Plan (05/28/2021 12:59 PM SNUBBER): Continue to monitor, check A1c to evaluate blood sugars are continue to elevate Continue Tradjenta 5 mg Assessment & Plan (11/30/2020 1:38 PM CDT): A1c today Continue Tradjenta 5 mg once daily. Assessment & Plan (02/22/2020 12:13 PM SNUBBER): A1c well controlled at 6.3. Continue Tradjenta 5 mg once daily. Assessment & Plan (11/24/2019 3:45 PM CDT): Patient on Tradjenta 5 mg daily. Continue medication and diet lifestyle modifications. Assessment & Plan (04/17/2019 2:32 PM SNUBBER): Patient on Tradjenta 5 mg daily. A1c [...] daily Assessment & Plan (06/09/2022 4:58 PM SNUBBER): Stable, improving, quit smoking June 25, 2021; [...] dyspnea, though does report decreased insurance and jail Discussed with patient importance of continued activity and exercise in order to maintain pulmonary help Congratulated patient on smoking cessation will continue Spiriva 18 mcg daily Assessment & Plan (05/28/2021 1:01 PM SNUBBER): Stable, generally well controlled; patient has few [...] p.r.n. Assessment & Plan (02/22/2020 12:16 PM SNUBBER): COPD is worsening. Discussed monitoring symptoms and [...] steroids. Assessment & Plan (04/17/2019 2:32 PM SNUBBER): COPD is improving with treatment. Discussed monitoring [...] levels Assessment & Plan (06/09/2022 4:58 PM SNUBBER): Not well controlled, patient reports symptoms beginning worse; patient reports episodes of agoraphobia; worry about leaving house due to concerns for panic attacks Patient every 6 months ago; continues to have grief related to also Refer to [facility] for individual counseling Continue sertraline 100 mg daily; start diazepam 2 mg p.r.n. for panic attacks Assessment & Plan (05/28/2021 1:01 PM SNUBBER): Not well controlled, patient has multiple recent [...] 07/12/2018 Assessment & Plan (06/16/2023 1:30 PM SNUBBER): Not well controlled, has been having some difficulty; recently neighbor mode throwing up significant amounts of dust which worsened her symptoms Hoarse voice and nasal changes in swelling, especially morning Continue daily antihistamine, continue Flonase 2 sprays 1-2 times daily Assessment & Plan (12/15/2021 5:00 PM CDT): Generally stable; patient reports symptoms, on-off Continue qimq-ykw-yolitnc antihistamine; Flonase 2 sprays each nostril daily [...] hypoxia 03/13/2023 06/16/2023 Encounter for follow-up 09/10/2022 0310/2023 Assessment & Plan (09/10/2022 3:37 PM CDT): [...] (08/05/2020): Added automatically from request for surgery [id number] Assessment & Plan (09/09/2020 5:51 PM CDT): [...] up. Assessment & Plan (05/19/2020 4:51 PM SNUBBER): Noted from recent urinalysis. Will repeat urinalysis to better evaluate her urine. Upper abdominal pain 05/08/2020 021 Overview (05/08/2020): Added automatically from request for surgery [id number] Assessment & Plan (05/19/2020 4:51 PM SNUBBER): Patient has chronic intermittent upper abdominal pain [...] 11/30/2020 Assessment & Plan (02/22/2020 12:13 PM SNUBBER): Patient has a new cough over the last 1 week. I recommended testing for COVID - 19 considering her new symptoms. Reviewed self isolation procedures. Referral for testing placed today. Abnormal feces 05/10/2019 12/19/2023 Overview (05/10/2019): Added automatically from request for surgery [id number] Obesity (BMI 30-39.9) 07/12/20182021 Assessment & Plan [...] daily. Assessment & Plan (04/17/2019 2:32 PM SNUBBER): Obesity is worsening. Discussed the patient's BMI. [...] again. Assessment & Plan (04/27/2017 10:00 AM SNUBBER): Mild pain. Associated with tenderness in the [...] Encounters Date Type Department Care Team Description 08/01/2024 9:10 AM CDT - 08/01/2024 7:50 PM CDT Hospital Encounter [facility] Emergency Department [address] [place] [address] Erin Irizarry MD Kheirkhahan, Nazanin, MD Other acute pulmonary embolism without acute cor pulmonale (HCC) (Primary Dx) Discharge Disposition: Discharge to a critical access hospital 07/27/2024 Results Follow-Up [facility] [address] [phone] Charlie Mtz MD 07/24/2024 Orders Only [facility] [address] [place] [phone] Charlie Mtz MD 07/17/2024 1:00 PM CDT Office Visit [facility] Primary Care at [address] [place] [phone] Michell Burgos NP Otalgia, left ear (Primary Dx) 07/10/2024 4:00 PM CDT Office Visit [facility] [address] [phone] Ellie Wright NP Acute non-recurrent maxillary sinusitis (Primary Dx); Acute diffuse otitis externa of left ear; Class 2 severe obesity due to excess calories with serious comorbidity and body mass index (BMI) of 39.0 to 39.9 in adult (HCC) 07/10/2024 Nurse Triage [facility] [address] [phone] Charlie Mtz MD 07/10/2024 Nurse Triage [facility] [address] [phone] Charlie Mtz MD 07/09/2024 Telephone [facility] [address] [phone] Charlie Mtz MD Medical Question/Miscellaneo us 06/21/2024 Telephone [facility] [address] [phone] Charlie Mtz MD Forms Request 06/05/2024 Telephone [facility] [address] [phone] Charlie Mtz MD 05/31/2024 Telephone [facility] [address] [phone] Charlie Mtz MD Medical Records Request 05/31/2024 Telephone [facility] [address] [phone] Charlie Mtz MD Test Results 05/11/2024 1:02 PM SNUBBER - 05/11/2024 11:59 PM SNUBBER Hospital Encounter [facility] Cardiology [address] [place] [address] Essential (primary) hypertension Discharge Disposition: Discharge to home or self care 05/11/2024 10:00 AM SNUBBER Lab [facility] Laboratory [address] [place] [phone] from Last 3 Months Immunizations Immunization Administration [...] Diluent (Abrysvo) 02/08/2023 Tetanus toxoid, adsorbed 07/11/2018(Deferred: Al anselmo) ZOSTER Recombinant 04/12/2023,02/08/2023 Surgical History Surgery Date [...] = 0.6 oz pur e alcohol) [facility] Utilities Answer Date Recorded In the past 12 months has th e electric, gas, oil, or water company threatened [...] often do you attend chur ch or mormon services? More than 4 times per year 03/18/2023 Do you belong to any clubs o r organizations such as rastafari groups, unions, fraternal or athletic groups, or [...] place to sleep or slept in a correction (including now)? No 03/18/2023 Personal Safety Answer Date Recorded Have you ever been in or are you currently in a harmful physical or emotional relationship or is someone making you feel afraid or unsafe? Denies 08/01/2024 Education Answer Date Recorded What is the highest level of school you have completed or the highest degree you have received? Some college, no degree 03/15/2023 Comments No Sex and Gender Information Value Date Recorded Sex Assigned at Not on file Legal Sex Female 3:09 PM SNUBBER Gender Identity Not on file Sexual Orientation [...] Sign Reading Time Taken Comments Blood Pressure 100/46 08/01/2024 6:30 PM CDT Pulse 61 08/01/2024 6:30 PM CDT Temperature 37.2 C (98.9 F) 08/01/2024 9:07 AM CDT Respiratory Rate 14 08/01/2024 6:30 PM CDT Oxygen Saturation 94% 08/01/2024 6:30 PM CDT Inhaled Oxygen Concentration - - Weight 93.4 kg (206 lb) 08/01/2024 9:07 AM CDT Height 154.9 cm (5' 0.98 ) 07/17/2024 12:54 PM C DT Body Mass Index 38.95 07/17/2024 12:54 PM CDT Plan of Treatment Health Maintenance Due Date Last Done Comments Covid-19 Vaccine (2023-2 5 season) 2023 02/18/2021, 06/24/2020, 05/21/2020 Lung Cancer Screening 07/13/2024 07/13/2023, 023 Well Visit 65+ 12/18/2024 12/19/2023, 09/2022, 12/10/2021, [...] 06/14/2009 Pneumococcal vaccine 65+ Completed 11/22/2019, 09/2018 Zoster Vaccine Completed 04/12/2023, 02/08/2023 Hepatitis B [...] Procedure Name Priority Date/Time Associated Diagnosis Comments SEPSIS LACTATE WITH REFLEX Timed 08/01/2024 2:07 PM CDT TROPONIN T HIGH-SENSITIVITY 4-HR Timed 08/01/2024 2:07 PM CDT PROCALCITONIN Routine 08/01/2024 11:07 AM CDT TROPONIN T HIGH-SENSITIVITY 2-HOUR Timed 08/01/2024 11:[address] CHEST PE W CONTRAST ED 08/01/2024 10:25 AM CDT US VEIN DUPLEX LOWER EXTREMITY RIGHT LIMITED ED 08/01/2024 10:18 AM CDT XR CHEST 1 VIEW ED 08/01/2024 9:20 AM CDT EGFR STAT 08/01/2024 9:15 AM CDT DIFFERENTIAL AUTO STAT 08/01/2024 9:1 5 AM CDT D-DIMER, QUANTITATIVE STAT 08/01/2024 9:15 AM CDT PROTIME-INR STAT 08/01/2024 9:15 AM CDT APTT STAT 08/01/2024 9:15 AM CDT TROPONIN T HIGH-SENSITIVITY SERIES (BASELINE, 2HR, 4HR, 6HR) STAT 08/01/2024 9:15 AM CDT SEPSIS LACTATE WITH REFLEX STAT 08/01/2024 9:15 AM CDT COMPREHENSIVE METABOLIC PANEL STAT 08/01/2024 9:15 AM CDT CBC WITH AUTO DIFFERENTIAL STAT 08/01/2024 9:15 AM CDT PRO B-TYPE NATRIURETIC PEPTIDE STAT 08/01/2024 9:15 AM CDT INFLUENZA A/B, RSV, AND COVID-19 PCR STAT 08/01/2024 9:15 AM CDT ECG 12-LEAD STAT 08/01/2024 9:07 AM CDT SCAN - RADIOLOGY/IMAGING 07/24/2024 ECG 12-LEAD Routine 05/11/2024 1:16 PM SNUBBER Essential (primary) hypertension EGFR Routine 05/11/2024 10:07 AM SNUBBER URINALYSIS, MICROSCOPIC ONLY Routine 05/11/2024 10:07 AM SNUBBER DIFFERENTIAL AUTO Routine 05/11/2024 10: 07 AM SNUBBER BASIC METABOLIC PANEL Routine 05/11/2024 10:07 AM SNUBBER HEMOGLOBIN A1C Routine 05/11/2024 10:07 AM SNUBBER CBC WITH AUTO DIFFERENTIAL Routine 05/11/2024 10:07 AM SNUBBER URINALYSIS AND REFLEX TO MICROSCOPIC AND CULTURE Routine 05/11/2024 10:07 AM SNUBBER SCREENING MAMMOGRAM BILATERAL W ANDREW Schedule Routine, Read Routine (OP Routine) 01/16/2024 2:28 PM CDT Screening mammogram, encounter for DEXA AXIAL SKELETON BONE DENSITY 1 OR MORE SITES Schedule Routine, Read Routine (OP Routine) 01/16/2024 2:16 PM CDT Post-menopausal CT LUNG CANCER SCREENING Schedule Routine, Read Routine (OP Routine) 07/13/2023 5:26 PM CDT Personal history of nicotine dependence COLONOSCOPY 05/22/2019 10:39 AM SNUBBER HEPATITIS C ANTIBODY Routine 05/18/2019 10:48 AM SNUBBER Encounter for hepatitis C screening test for low risk patient from Last 3 Months or Most Recently Relevant to Health Maintenance Results * Troponin T high-sensitivity 4-hour (08/01/2024 2:07 PM CDT) Trop T hs 9 <=14 ng/L Comment: Interpretive Data For further hscTnT resources including the diagnostic algorithm and an aid in interpretation, copy and paste this link: https://nrl.testcatalog.org/show/hsTrop Current Interpretive Data last revised 2020. Trop T hs delta -1 ng/L [facility] ([place]) Trop T hs interp Insignificant [facility] ([place]) Blood 08/01/2024 2:07 PM CDT 08/01/2024 2:12 PM CDT Erin Irizarry MD LAB BLOOD ORDERABLES Molly l Result [facility] ([place]) 1 [facility] [place] [address] * Sepsis Lactate w/ Reflex (08/01/2024 2:07 PM CDT) Pathologist [facility] Sepsis Lactate 1.2 0.7 - 2.0 mmol/L Blood 08/01/2024 2:07 PM CDT 08/01/2024 2:12 PM CDT Erin Irizarry MD LAB BLOOD ORDERABLES Molly l Result [facility] ([place]) 1 [facility] [place] [place] [address] * Troponin T high-sensitivity 2-hour (08/01/2024 11:07 AM CDT) Trop T hs 11 <=14 ng/L Comment: Interpretive Data For further hscTnT resources including the diagnostic algorithm and an aid in interpretation, copy and paste this link: https://nrl.testcatalog.org/show/hsTrop Current Interpretive Data last revised 2020. Trop T hs delta 1 ng/L [facility] ([facility]) Trop T hs interp Insignificant [facility] ([facility]) Blood 08/01/2024 11:0 7 AM CDT 08/01/2024 11:12 AM CDT Erin Irizarry MD LAB BLOOD ORDERABLES Molly l Result [facility] ([place]) [address] [facility] [place] [address] * Procalcitonin (08/01/2024 11:07 AM CDT) Procalcitonin 0.05 <=0.25 ng/mL Comment:Testing performed by : [facility], [address] [place] [address]., [id number] Blood 08/01/2024 11:0 7 AM CDT 08/01/2024 3:52 PM CDT Erin Irizarry MD LAB BLOOD ORDERABLES Molly l Result Performing Organization Address City/[facility] Co de Phone Number [facility] ([place]) [address] [place] [address] [place] [address] * CT Chest PE (CTA) W Contrast (08/01/2024 10:25 AM CDT) Anatomical Region Laterality Modality Body N/A Computed Tomogra phy 08/01/2024 10:4 9 AM CDT Narrative 08/01/2024 10:56 AM CDT EXAM DESCRIPTION: CT CHEST PE (CTA) W CONTRAST REASON FOR STUDY: Pulmonary embolism (PE) suspected, high prob Sob, leg redness, recent knee replacement TECHNIQUE: CT angiogram of the chest performed with intravenous contrast using helical scanning technique with dynamic intravenous contrast injection. Reconstructed coronal and sagittal MPR images reviewed. All images stored on PACS. 3D MIP images rendered on scanning unit and reviewed at time of interpretation. Automated exposure control was used as a dose optimization technique for this examination. CONTRAST TYPE/DOSE: 100mL of IOVERSOL 350 MG IODINE/ML INTRAVENOUS SYRINGE injected via intravenous COMPARISON: No prior CT angiogram. Chest CT 07/13/2023. FINDINGS: VASCULATURE: Filling defects are noted in right upper lobar segmental arteries. There is a filling defect in a medial left upper lobe segmental artery. Small subsegmental filling defect right lower lobe. LUNGS: Moderate emphysema. There is volume loss and atelectasis in the right middle lobe with bronchial narrowing. No evidence of pulmonary infarction. PLEURA: Trace pleural effusion. No pneumothorax. MEDIASTINUM/NICCI: No mediastinal mass. There is joce fullness in the right hilum 2.8 x 2.3 cm. HEART: Heart size is normal. AXILLA: No axillary lymphadenopathy. CHEST WALL: No chest wall mass or subcutaneous emphysema. HARDWARE/LINES/TUBES: None. UPPER ABDOMEN: In the included upper abdomen, no significant abnormalities are seen. MUSCULOSKELETAL: Bone windows demonstrate no acute or aggressive osseous abnormality. OTHER: No significant abnormality. IMPRESSION: Positive for acute pulmonary embolism in the right upper lobar segmental arteries and a medial left upper lobe segmental artery. No evidence of pulmonary infarction or right heart strain. Right hilar joce fullness 2.8 x 2.3 cm. Three-month follow-up chest CT recommended. Volume loss and atelectasis in the right middle lobe with bronchial narrowing. This is similar to the prior chest CT. Attention on follow-up imaging recommended. Moderate emphysema. Recommend evaluation for annual lung cancer screening enrollment if the patient qualifies based on clinical factors and smoking history. Trace pleural effusions. Critical results discussed with Dr. Irizarry by Dr. Harrington at approximately 10:56 am central time on 08/01/2024 . THIS IS AN ELECTRONICALLY VERIFIED FINAL REPORT 08/01/2024 10:56 AM - Electronically signed by Riley Harrington M.D. CH: THOMAS Report ID: [id number] Reading Location: [place] [address] Procedure Note Riley Harrington Jr., MD - 08/01/2024 EXAM DESCRIPTION: CT CHEST PE (CTA) W CONTRAST REASON FOR STUDY: Pulmonary embolism (PE) suspected, high prob Sob, leg redness, recent knee replacement TECHNIQUE: CT angiogram of the chest performed with intravenous contrastusing helical scanning technique with dynamic intravenous contrast injection. Reconstructed coronal and sagittal MPR images reviewed. All images storedon PACS. 3D MIP images rendered on scanning unit and reviewed at time of interpretation. Automated exposure control was used as a doseoptimization technique for this examination. CONTRAST TYPE/DOSE: 100mL of IOVERSOL 350 MG IODINE/ML INTRAVENOUSSYRINGE injected via intravenous COMPARISON: No prior CT angiogram. Chest CT 07/13/2023. FINDINGS: VASCULATURE: Filling defects are noted in right upper lobar segmental arteries. There is a filling defect in a medial left upper lobe segmental artery. Small subsegmental filling defect right lower lobe. LUNGS: Moderate emphysema. There is volume loss and atelectasis in the right middle lobe with bronchial narrowing. No evidence of pulmonary infarction. PLEURA: Trace pleural effusion. No pneumothorax. MEDIASTINUM/NICCI: No mediastinal mass. There is joce fullness in theright hilum 2.8 x 2.3 cm. HEART: Heart size is normal. AXILLA: No axillary lymphadenopathy. CHEST WALL: No chest wall mass or subcutaneous emphysema. HARDWARE/LINES/TUBES: None. UPPER ABDOMEN: In the included upper abdomen, no significantabnormalities are seen. MUSCULOSKELETAL: Bone windows demonstrate no acute or aggressive osseous abnormality. OTHER: No significant abnormality. IMPRESSION: Positive for acute pulmonary embolism in the right upper lobar segmental arteries and a medial left upper lobe segmental artery. No evidence of pulmonary infarction or right heart strain. Right hilar joce fullness 2.8 x 2.3 cm. Three-month follow-up chest CT recommended. Volume loss and atelectasis in the right middle lobe with bronchial narrowing. This is similar to the prior chest CT. Attention on follow-up imaging recommended. Moderate emphysema. Recommend evaluation for annual lung cancer screening enrollment if the patient qualifies based on clinical factors and smoking history. Trace pleural effusions. Critical results discussed with Dr. Irizarry by Dr. Harrington at approximately 10:56 am central time on 08/01/2024 . THIS IS AN ELECTRONICALLY VERIFIED FINAL REPORT 08/01/2024 10:56 AM - Electronically signed by Riley Harrington M.D. CH: THOMAS Report ID: [id number] Reading Location: [id number] Erin Irizarry MD IMG CT PROCEDURES Final R esult * US VEIN DUPLEX LOWER EXTREMITY RIGHT LIMITED, UNILATERAL (08/01/2024 10:18 AM CDT) Anatomical Region Laterality Modality Vascular Right Ultrasound 08/01/2024 10:4 6 AM CDT Narrative 08/01/2024 10:49 AM CDT EXAM DESCRIPTION: US VEIN DUPLEX LOWER EXTREMITY RIGHT LIMITED, UNILATERAL REASON FOR STUDY: recent knee replacement, right leg swelling and pain with bruising. TECHNIQUE: Duplex scan using the B-mode, spectral Doppler, and color-flow Doppler of the deep venous system of the right lower extremity was performed. Images stored on PACS. COMPARISON: None. FINDINGS: Normal compressibility of the right common femoral vein and greater saphenous common femoral confluence. Normal compressibility of the proximal and mid femoral vein with normal color Doppler flow. The distal femoral vein could not be assessed. Normal compressibility of the popliteal vein with normal color Doppler flow. Limited assessment of the posterior tibial vein, only seen at the level of the ankle. There is normal color flow in the region of the posterior tibial vein with normal compression. The other calf veins could not be demonstrated. IMPRESSION: No evidence of deep venous thrombosis in the right lower extremity where seen. Distal femoral vein and calf veins could not be assessed. THIS IS AN ELECTRONICALLY VERIFIED FINAL REPORT 08/01/2024 10:49 AM - Electronically signed by Riley Harrington M.D. CH: THOMAS Report ID: [id number] Reading Location: [id number] Procedure Note Riley Harrington Jr., MD - 08/01/2024 EXAM DESCRIPTION: US VEIN DUPLEX LOWER EXTREMITY RIGHT LIMITED,UNILATERAL REASON FOR STUDY: recent knee replacement, right leg swelling and painwith bruising. TECHNIQUE: Duplex scan using the B-mode, spectral Doppler, and color-flow Doppler of the deep venous system of the right lower extremity was performed. Images stored on PACS. COMPARISON: None. FINDINGS: Normal compressibility of the right common femoral vein and greatersaphenous common femoral confluence. Normal compressibility of the proximal and mid femoral vein with normal color Doppler flow. The distal femoral veincould not be assessed. Normal compressibility of the popliteal vein with normal color Doppler flow. Limited assessment of the posterior tibial vein, only seen at the level of the ankle. There is normal color flow in the regionof the posterior tibial vein with normal compression. The other calf veinscould not be demonstrated. IMPRESSION: No evidence of deep venous thrombosis in the right lower extremity whereseen. Distal femoral vein and calf veins could not be assessed. THIS IS AN ELECTRONICALLY VERIFIED FINAL REPORT 08/01/2024 10:49 AM - Electronically signed by Riley Harrington M.D. CH: Report ID: [id number] Reading Location: [place] [address] us Erin Irizarry MD IMG US PROCEDURES Final R esult * XR Chest 1 Vw Portable (08/01/2024 9:20 AM CDT) Anatomical Region Laterality Modality Body, Chest N/A Computed Radiogr aphy 08/01/2024 9:49 AM CDT Narrative 08/01/2024 9:51 AM CDT EXAM DESCRIPTION: XR CHEST 1 VIEW REASON FOR STUDY: Acute shortness of breath for 2 days in a patient with history of COPD. Complaint of ecchymosis, redness, and warmth to right lower extremity status post recent right knee replacement. TECHNIQUE: Single frontal radiographic view(s) of the chest. COMPARISON: Chest radiograph 03/13/2023; CT lung cancer screening 07/13/2023 FINDINGS: LUNGS: No focal consolidation. No pleural effusion. No pneumothorax. Emphysematous changes. HEART/MEDIASTINUM: Stable cardiomediastinal silhouette better evaluated on prior CT imaging. LINES/TUBES: None. BONES: No acute osseous abnormality. IMPRESSION: No radiographic evidence of acute cardiopulmonary process. THIS IS AN ELECTRONICALLY VERIFIED FINAL REPORT 08/01/2024 9:51 AM - Electronically signed by Jeremy Goetz M.D. INDY: INDY Report ID: [id number] Reading Location: [place] [address] Procedure Note Jeremy Goetz MD - 08/01/2024 EXAM DESCRIPTION: XR CHEST 1 VIEW REASON FOR STUDY: Acute shortness of breath for 2 days in a patient with history of COPD. Complaint of ecchymosis, redness, and warmth to rightlower extremity status post recent right knee replacement. TECHNIQUE: Single frontal radiographic view(s) of the chest. COMPARISON: Chest radiograph 03/13/2023; CT lung cancer nsnrmnkbi19/03/2024 FINDINGS: LUNGS: No focal consolidation. No pleural effusion. No pneumothorax. Emphysematous changes. HEART/MEDIASTINUM: Stable cardiomediastinal silhouette better evaluatedon prior CT imaging. LINES/TUBES: None. BONES: No acute osseous abnormality. IMPRESSION: No radiographic evidence of acute cardiopulmonary process. THIS IS AN ELECTRONICALLY VERIFIED FINAL REPORT 08/01/2024 9:51 AM - Electronically signed by Jeremy Goetz M.D. INDY: INDY Report ID: [id number] Reading Location: [place] [address] us Erin Irizarry MD IMG XR PROCEDURES Final R esult * Troponin T high-sensitivity series (baseline, 2hr, 4hr, 6hr) (08/01/2024 9:15 AM CDT) Trop T hs 10 <=14 ng/L Comment: Interpretive Data For further hscTnT resources including the diagnostic algorithm and an aid in interpretation, copy and paste this link: [email or web address].testcatalog.org/show/hsTrop Current Interpretive Data last revised 2020. Blood 08/01/2024 9:15 AM CDT 08/01/2024 9:20 AM CDT Erin Irizarry MD LAB BLOOD ORDERABLES Molly l Result Performing Organization Address [facility] Co de Phone Number [facility] [address] [place] [address] Department [place] [address] * Influenza A/B, RSV, and COVID-19 PCR Nasopharyngeal (08/01/2024 9:15 AM CDT) Pathologist [facility] [place] COVID-19 RNA Negative Negative Influenza A RNA Negative Negative [facility] ([place]) Influenza B RNA Negative Negative [facility] ([place]) RSV RNA Negative Negative [facility] ([place]) Comment: Interpretive data: Testing performed by [facility]. This test is performed using the [employer] Xpert Xpress CoV-2/Flu/RSV plus assay. This is a multiplex, real- time reverse transcriptase PCR assay intended for the qualitative detection of nucleic acid from SARS-CoV-2, influenza A, influenza B, and respiratory syncytial virus. This assay has been cleared by the [place] Food and Drug administration. The performance characteristics have been verified by the [facility]. Results must be considered in the clinical context, and a negative result does not rule out infection. Interpretive Data last revised 2023 Nasopharyngeal 08/01/2024 9: 15 AM CDT 08/01/2024 9:20 AM CDT Narrative [facility] ([place]) - 08/01/2024 10:02 AM CDT Is the Patient experiencing symptoms consistent with COVID?->Yes Erin Irizarry MD LAB MICROBIOLOGY - GENERA L ORDERABLES Final Result Performing Organization Address City/[facility]/ZIP Co de Phone Number [facility] ([place]) [address] [facility] [place] [address] * (ABNORMAL) Sepsis Lactate w/ Reflex (08/01/2024 9:15 AM CDT) [facility] Sepsis Lactate 2.4(H) 0.7 - 2.0 mmol/L Blood 08/01/2024 9:15 AM CDT 08/01/2024 9:20 AM CDT Erin Irizarry MD LAB BLOOD ORDERABLES Molly l Result Performing Organization Address City/[facility]/ZIP Co de Phone Number [facility] ([place]) [address] [place] [address] [place] [address] * eGFR (08/01/2024 9:15 AM CDT) [facility] eGFR >90 >=60 mL/min/1. 73 m2 Comment: [...] Current interpretive data was last reviewed 2021. Blood 08/01/2024 9:15 AM CDT 08/01/2024 9:20 AM CDT Erin Irizarry MD LAB BLOOD ORDERABLES Molly l Result [facility] ([facility]) 1 [facility] Department [place] [address] * (ABNORMAL) Differential, auto (08/01/2024 9:15 AM CDT) Neutrophil abs 9.79(H) 1.50 - 6.50 K/cumm Imm gran abs 0.11(H) 0.00 - 0.10 K/cumm [facility] ([facility]) Lymphocyte abs 1.45 0.80 - 3.30 K/cumm [facility] ([facility]) Monocyte abs 0.80 0.20 - 0.80 K/cumm [facility] ([facility]) Eosinophil abs 0.11 0.00 - 0.50 K/cumm [facility] ([facility]) Basophil abs 0.04 0.00 - 0.10 K/cumm [facility] ([facility]) Neutrophil pct 79.6 % [facility] ([facility]) Comment: Interpretive Data Percent cell count reference ranges are not reported, since discordance with absolute values may lead to misinterpretation of CBC data. Current Interpretive Data was last revised on 2017. Imm gran pct 0.9 % [facility] ([facility]) Comment: Interpretive Data Percent cell count reference ranges are not reported, since discordance with absolute values may lead to misinterpretation of CBC data. Current Interpretive Data was last revised on 2017. Lymphocyte pct 11.8 % [facility] ([facility]) Comment: Interpretive Data Percent cell count reference ranges are not reported, since discordance with absolute values may lead to misinterpretation of CBC data. Current Interpretive Data was last revised on 2017. Monocyte pct 6.5 % [facility] ([facility]) Comment: Interpretive Data Percent cell count reference ranges are not reported, since discordance with absolute values may lead to misinterpretation of CBC data. Current Interpretive Data was last revised on 2017. Eosinophil pct 0.9 % [facility] ([facility]) Comment: Interpretive Data Percent cell count reference ranges are not reported, since discordance with absolute values may lead to misinterpretation of CBC data. Current Interpretive Data was last revised on 2017. Basophil pct 0.3 % [facility] ([facility]) Comment: Interpretive Data Percent cell count reference ranges are not reported, since discordance with absolute values may lead to misinterpretation of CBC data. Current Interpretive Data was last revised on 2017. Blood 08/01/2024 9:15 AM CDT 08/01/2024 9:20 AM CDT Erin Irizarry MD LAB BLOOD ORDERABLES Molly mukherjee Result [facility] [place]) 1 [facility] Department [place] [address] * (ABNORMAL) Pro B-type natriuretic peptide (08/01/2024 9:15 AM CDT) NT-proBNP 1,049(H) <=300 pg/mL Comment: Interpretive Comments: A. Dyspnea in Acute Care Setting All Ages: < 300 pg/ml, acute heart failure unlikely. < 50 yrs: 300 - 450 pg/ml, further investigation warranted. > 450 pg/ml, acute heart failure likely. 50 - 74 yrs: 300 - 900 pg/ml, further investigation warranted. > 900 pg/ml, acute heart failure likely . > or = 75 yrs: 450 - 1800 pg/ml, further investigation warranted. > 1800 pg/ml, acute heart failure likely. B. Non-acute Setting < 75 yrs < 125 pg/ml, rules out heart failure. > or = 125 pg/ml, further investigation warranted. > or = 75 yrs < 450 pg/ml, rules out heart failure. > or = 450 pg/ml, further investigation warranted. - Knowledge of each individual patient's NT-proBNP range may be more useful than using similar cut-points for every patient. Please note that marked elevations in NT-proBNP levels may be observed in state other than Left Ventricular Congestive Failure, including: acute coronary syndromes, right heart strain/failure (including pulmonary embolism and cor pulmonale), critical illness, renal failure, as well as advanced age. - References: 1. Lilly BATRES et.al. Eur Heart J. 2006:27:330-337. 2. Zach RW, Heather AM. J. AM Connie Cardiol: Cardiovasc Imag. 2009;2: 216- 225. Interpretive Data Last Revised Date: 2017. Blood 08/01/2024 9:15 AM CDT 08/01/2024 9:20 AM CDT us Erin Irizarry MD LAB BLOOD ORDERABLES Molly yaz Result [facility] ([facility]) 1 [facility] [place] [address] * (ABNORMAL) CBC with auto differential (08/01/2024 9:15 AM CDT) Pathologist [facility] [place] WBC 12.30(H) 3.80 - 9.90 K/cumm Hgb 10.4(L) 11.9 - 15.5 g/dL [facility] ([facility]) Hct 33.2(L) 35.6 - 45.5 % [facility] ([facility]) Plt 213 150 - 400 K/cumm [facility] ([facility]) MPV 10.2 9.1 - 12.3 fL [facility] ([facility]) RBC 3.74(L) 3.90 - 5.20 M/cumm [facility] ([facility]) MCV 88.8 81.3 - 96.4 fL [facility] ([facility]) MCH 27.8 27.1 - 33.3 pg [facility] ([facility]) MCHC 31.3(L) 32.3 - 35.7 g/dL [facility] ([facility]) RDW CV 17.2(H) 11.1 - 14.9 % [facility] ([facility]) RDW SD 53.5(H) 35.7 - 48.1 fL [facility] ([facility]) NRBC abs 0.04(H) 0.00 - 0.01 K/cumm [facility] ([facility]) Blood 08/01/2024 9:15 AM CDT 08/01/2024 9:20 AM CDT Erin Irizarry MD LAB BLOOD ORDERABLES Molly mukherjee Result [facility] ([facility]) 1 [facility] [employer] [place] [address] * (ABNORMAL) aPTT (08/01/2024 9:15 AM CDT) Pathologist [facility] [place] aPTT 24(L) 28 - 38 sec [facility] ([facility]) Comment: Interpretive Data Heparin therapeutic range: 66.0 - 100.0 seconds. Range based on correlation with therapeutic heparin activity range of 0.3 - 0.7 Units/mL. Current interpretive data was last revised on 2023. Blood 08/01/2024 9:15 AM CDT 08/01/2024 9:20 AM CDT Erin Irizarry MD LAB BLOOD ORDERABLES Molly l Result Performing Organization Address [facility] Co de Phone Number [facility] ([facility]) 1 [facility] [place] [address] * (ABNORMAL) Protime-INR (08/01/2024 9:15 AM CDT) PT 15.1(H) 9.7 - 13.0 sec [facility] ([place]) INR 1.39(H) 0.90 - 1.20 [facility] ([facility]) Comment: Interpretive data Oral anticoagulant therapeutic ranges: Venous thromboembolism prophylaxis or treatment: 2.0-3.0 CARDIOLOGY Standard range: 2.0-3.0 High-intensity range: 2.5-3.5 Refer to indication-specific guidelines for appropriate target ranges for prosthetic heart valve replacement. Current interpretive data was last revised on 2019. Blood 08/01/2024 9:15 AM CDT 08/01/2024 9:20 AM CDT Erin Irizarry MD LAB BLOOD ORDERABLES Molly l Result Performing Organization Address [facility] Co de Phone Number [facility] ([facility]) 1 [facility] [place] [address] * (ABNORMAL) D-dimer, quantitative (08/01/2024 9:15 AM CDT) D-Dimer 7,948(H) <=499 ng/mL FEU [facility] ([facility]) Comment: [place] Interpretive data FDA approved the D-dimer, in conjunction with a low or moderate pretest probability score, to exclude venous thromboembolic events (VTE) (PE and DVT) in outpatients when the D-dimer result is < 500 ng/ml FEU. Evidence supports using an age-adjusted D-dimer cut-off for outpatients older than 50 (age x 10) to improve specificity without sacrificing sensitivity. Example: age 68, VTE cut-off 680 ng/ml FEU. References; Schouten HT et al. Brit Med J. 2013;346:f2492. Michael ENRIQUEZ et al. Annals Int Med. 2015;163:701-11. Current interpretive data was last revised on 2019. Blood 08/01/2024 9:15 AM CDT 08/01/2024 9:20 AM CDT Erin Irizarry MD LAB BLOOD ORDERABLES Molly mukherjee Result [facility]) 1 [facility] Department [place] [address] * (ABNORMAL) Comprehensive metabolic panel (08/01/2024 9:15 AM CDT) Sodium 140 135 - 145 mmol/L Potassium, pl 3.1(L) 3.3 - 4.9 mmol/L [facility] ([facility]) Chloride 99 97 - 110 mmol/L [facility] ([facility]) CO2 26 22 - 32 mmol/L [facility] ([facility]) Anion gap 15 2 - 15 mmol/L [facility] ([facility]) BUN 18 6 - 25 mg/dL [facility] ([facility]) Creatinine 0.59(L) 0.60 - 1.10 mg/dL [facility] ([facility]) Comment:Icteric sample, test results may be affected. Glucose 155 70 - 199 mg/dL [facility] ([facility]) Comment: Interpretive Data Fasting glucose >/= [...] Current interpretive data was last revised 2022. Calcium 8.2(L) 8.5 - 10.3 mg/dL [facility] ([facility]) Bilirubin, total 3.0(H) 0.1 - 1.2 mg/dL [facility] ([facility]) Protein, pl 6.2(L) 6.5 - 8.5 g/dL [facility] ([facility]) Albumin 3.6 3.5 - 5.0 g/dL [facility] ([facility]) Alk phos 108 40 - 130 Units/L [facility] ([facility]) ALT 20 7 - 45 Units/L [facility] ([facility]) AST 18 10 - 45 Units/L [facility] ([facility]) Blood 08/01/2024 9:15 AM CDT 08/01/2024 9:20 AM CDT Erin Irizarry MD LAB BLOOD ORDERABLES Molly l Result Performing Organization Address City/[facility]/ZIP Co de Phone Number [facility]) 1 [facility] [place] [address] * ECG 12 lead (08/01/2024 9:07 AM CDT) 08/01/2024 9:07 AM CDT Narrative [facility] - 08/01/2024 12:18 PM CDT Vent Rate: 72 bpm RR Interval: 828 msec SD Interval: 143 msec QRS Duration: 102 msec QT Interval: 346 msec QTC Interval: 370 msec P-R-T [place]: 80 - 80 - -31 degrees IMPRESSION: SINUS RHYTHM NONSPECIFIC ST \T\ T-WAVE ABNORMALITY ABNORMAL ECG NO CHANGE FROM PREVIOUS TRACING NOTED Electronically Signed By: Matthew Hunt MD Erin Irizarry MD ECG ORDERABLES Final Res ult Performing Organization Address City/[facility]/ZIP Co de Phone Number [facility] * SCAN - RADIOLOGY/IMAGING (07/24/2024) Anatomical Region Laterality Modality Other us Charlie Mtz MD Final Res ult * ECG 12 lead (05/11/2024 1:16 PM SNUBBER) 05/11/2024 1:18 PM SNUBBER Narrative [facility] - 05/11/2024 2:51 PM SNUBBER Vent Rate: 60 bpm RR Interval: 988 msec SD Interval: 153 msec QRS Duration: 94 msec QT Interval: 424 msec QTC Interval: 425 msec P-R-T [place]: 33 - 75 - 47 degrees IMPRESSION: SINUS RHYTHM Probably normal. No prior EKG for comparison Electronically Signed By: Dr Jeff Austin us Jarred Koch MD ECG ORDERABLES Final Result [facility] * eGFR (05/11/2024 10:07 AM SNUBBER) eGFR >90 >=60 mL/min/1. 73 m2 Comment: [...] last reviewed 2021. Testing performed by: [facility], [address] [place] [address], [place]., [address] Blood 05/11/2024 10:0 7 AM SNUBBER 05/11/2024 12:39 PM SNUBBER Jarred Koch MD LAB BLOOD ORDERABLES Final R esult [facility] ([place]) 1 [facility] Department [place] [address] * Differential, auto (05/11/2024 10:07 AM SNUBBER) Neutrophil abs 5.3 1.5 - 6.5 K/cumm Comment:Testing performed by : [facility], [address] [place] [address]., [id number] Imm gran abs 0.0 0.0 - 0.1 K/cumm [facility] ([facility]) Comment:Testing performed by : [address] [address] Lymphocyte abs 2.0 0.8 - 3.3 K/cumm [facility] ([facility]) Comment:Testing performed by : [address], [address] Monocyte abs 0.6 0.2 - 0.8 K/cumm [facility] ([facility]) Comment:Testing performed by : [facility], [address] [place] [address]., [id number] Eosinophil abs 0.2 0.0 - 0.5 K/cumm [facility] ([facility]) Comment:Testing performed by : [address] [address] Basophil abs 0.1 0.0 - 0.1 K/cumm [facility] ([place]) Comment:Testing performed by : [address] [address] Neutrophil pct 64.4 % [facility] ([facility]) Comment: Interpretive Data Percent cell count reference ranges are not reported, since discordance with absolute values may lead to misinterpretation of CBC data. Current Interpretive Data was last revised on 2017. Testing performed by: [address], [address] Imm gran pct 0.2 % [facility] ([facility]) Comment: Interpretive Data Percent cell count reference ranges are not reported, since discordance with absolute values may lead to misinterpretation of CBC data. Current Interpretive Data was last revised on 2017. Testing performed by: [facility], [address] [place] [address]., [id number] Lymphocyte pct 24.5 % [facility] Josefina [facility] ([facility]) Comment: Interpretive Data Percent cell count reference ranges are not reported, since discordance with absolute values may lead to misinterpretation of CBC data. Current Interpretive Data was last revised on 2017. Testing performed by: [facility], [address] [place] [address]., [id number] Monocyte pct 7.8 % [facility] ([facility]) Comment: Interpretive Data Percent cell count reference ranges are not reported, since discordance with absolute values may lead to misinterpretation of CBC data. Current Interpretive Data was last revised on 2017. Testing performed by: [facility], [address] [place] [address]., [id number] Eosinophil pct 2.5 % [facility] R [facility] (CR) Comment: Interpretive Data Percent cell count reference ranges are not reported, since discordance with absolute values may lead to misinterpretation of CBC data. Current Interpretive Data was last revised on 2017. Testing performed by: [facility], [address] [place] [address]., [id number] Basophil pct 0.6 % [facility] ([facility]) Comment: Interpretive Data Percent cell count reference ranges are not reported, since discordance with absolute values may lead to misinterpretation of CBC data. Current Interpretive Data was last revised on 2017. Testing performed by: [address] [address] Blood 05/11/2024 10:0 7 AM SNUBBER 05/11/2024 10:07 AM SNUBBER Jarred Koch MD LAB BLOOD ORDERABLES Final R esult [facility] ([facility]) 1 [facility] Department [place] [address] * (ABNORMAL) Urinalysis reflex to microscopic and culture Urine, clean voided (05/11/2024 10:07 AM SNUBBER) Color, ur Yellow Yellow Comment:Testing performed by : [address] [address] Clarity, ur Clear Clear [facility] A (CR) Comment:Testing performed by : [address] [address] Specific gravity, ur 1.026 1.003 - 1.030 [facility] ([facility]) Comment:Testing performed by : [address], [address] pH, urine 5.5 [facility] ([facility]) Comment: Interpretive Data U rine pH is affected by diet, medications, systemic acid-base disturbances, and renal tubular function. pH may affect urinary stone formation. For example, urine pH below 6.0 may help reduce the tendency for calcium phosphate stones and pH greater than 6.0 may reduce the tendency for uric acid stone formation. Source: [facility] [place] Current Interpretive Data was last revised on 2017 Testing performed by: [address], [address] Protein, ur ql Negative Negative [facility] (CR) Comment:Testing performed by : [address], [address] Glucose, ur ql Negative Negative [facility] (CR) Comment:Testing performed by : [address], [address] Ketones, ur Negative Negative CERNER A (CR) Comment:Testing performed by : [address], [address] Bilirubin, ur Negative Negative [facility] (CR) Comment:Testing performed by : [address], [address] Blood, ur Trace(A) Negative [facility] (CR) Comment:Testing performed by : [address], [address] Urobilinogen, ur <2.0 <2.0 mg/dL [facility] (CR) Comment:Testing performed by : [address], [address] Nitrite, ur Negative Negative CERNER A (CR) Comment:Testing performed by : [address], [address] Leukocyte esterase, ur 3+(A) Negative [facility] (CR) Comment:Testing performed by : [address], [address] UA reflex comment Reflex to microscopic UA will be performed. [facility] (CR) Comment:Testing performed by : [address], [address] Urine, clean voided 05/11/2024 10:07 AM SNUBBER 05/11/2024 10:08 AM SNUBBER Jarred Koch MD LAB MICROBIOLOGY - GENERAL O RDERABLES Final Result SUJATA FARIAS (CR) 1 [facility] Department [place] [address] * (ABNORMAL) CBC with auto differential (05/11/2024 10:07 AM SNUBBER) WBC 8.2 3.8 - 9.9 K/cumm Comment:Testing performed by : [address], [address] Hgb 15.1 11.9 - 15.5 g/dL [facility] (CR) Comment:Testing performed by : [address], [address] Hct 47.9(H) 35.6 - 45.5 % [facility] (CR) Comment:Testing performed by : [address], [address] Plt 227 150 - 400 K/cumm [facility] (CR) Comment:Testing performed by : [address], [address] MPV 10.0 9.1 - 12.3 fL [facility] (CR) Comment:Testing performed by : [address], [address] RBC 5.55(H) 3.90 - 5.20 M/cumm [facility] (CR) Comment:Testing performed by : [address], [address] MCV 86.3 81.3 - 96.4 fL [facility] (CR) Comment:Testing performed by : [facility], [address] [place] [address], [address] MCH 27.2 27.1 - 33.3 pg [facility] (CR) Comment:Testing performed by : [facility], [address] [place] [address], [address] MCHC 31.5(L) 32.3 - 35.7 g/dL [facility] (CR) Comment:Testing performed by : [address], [address] RDW CV 15.6(H) 11.1 - 14.9 % [facility] (CR) Comment:Testing performed by : [address], [address] RDW SD 49.2(H) 35.7 - 48.1 fL [facility] (CR) Comment:Testing performed by : [address], [address] NRBC abs 0.00 0.00 - 0.01 K/cumm SUJATA FARIAS (CR) Comment:Testing performed by : [address], [address] Blood 05/11/2024 10:0 7 AM SNUBBER 05/11/2024 10:07 AM SNUBBER Jarred Koch MD LAB BLOOD ORDERABLES Final R esult SUJATA FARIAS ([place]) 1 [facility] Department [place] [address] * (ABNORMAL) Urinalysis, microscopic only (05/11/2024 10:07 AM SNUBBER) WBC, ur 0-5 0 - 5 Comment:Testing performed by : [address], [address] RBC, ur 0-2 0 - 2 /HPF SUJATA FARIAS (CR) Comment:Testing performed by : [address], [address] Epithelial cells, squamous, ur 11-20(A) 0 - 5 /HPF SUJATA FARIAS (CR) Comment:Testing performed by : [facility], [address] [place] [address]., [address] Mucous, ur Present(A) SUJATA Hopkins ([place]) Comment:Testing performed by : [facility], [address] [place] [address], [address] Culture Reflex Comment Reflex conditions for urine culture (WBC >10) not met. SUJATA FARIAS (CR) Comment:Testing performed by : [facility], [address] [place] [address], [address] Urine, clean voided 05/11/2024 10:07 AM SNUBBER 05/11/2024 12:24 PM SNUBBER Jarred Koch MD LAB URINE ORDERABLES Final R esult Performing Organization Address City/[facility]/ZIP Co de Phone Number SUJATA FARIAS ([place]) 1 [facility] [place] [address] * (ABNORMAL) Hemoglobin A1c (05/11/2024 10:07 AM SNUBBER) [facility] Hgb A1C 6.3(H) 4.0 - 5.6 % Comment:Testing performed by : [facility], [address] [place] [address], [address] Estimated Average Glucose 134 mg/dL SUJATA FARIAS (CR) Comment: The ADA recommends reporting an estimated Average Glucose (eAG) with all Hemoglobin A1c results using the equation derived from a study of 507 normal and diabetic adults. Minority populations were underrepresented and children were not included. (Diabetes Care 31:0824-1490, 2008). The eAG is not equivalent to a fasting glucose. Testing performed by: [facility], [address] [place] [address], [address] Blood 05/11/2024 10:0 7 AM SNUBBER 05/11/2024 10:07 AM SNUBBER Jarred Koch MD LAB BLOOD ORDERABLES Final R esult Performing Organization Address City/[facility]/ZIP Co de Phone Number SUJATA FARIAS ([place]) 1 [facility] [place] [address] * (ABNORMAL) Basic metabolic panel (05/11/2024 10:07 AM SNUBBER) Sodium 142 135 - 145 mmol/L Comment:Testing performed by : [facility], [address] [place] [address]., [address] Potassium, pl 3.7 3.3 - 4.9 mmol/L [facility] (CR) Comment:Testing performed by : [facility], [address] [place] [address], [address] Chloride 101 97 - 110 mmol/L [facility] (CR) Comment:Testing performed by : [facility], [address] [place] [address], [address] CO2 27 22 - 32 mmol/L [facility] (CR) Comment:Testing performed by : [address], [address] Anion gap 14 2 - 15 mmol/L [facility] (CR) Comment:Testing performed by : [address], [address] BUN 14 6 - 25 mg/dL [facility] (CR) Comment:Testing performed by : [address], [address] Creatinine 0.51(L) 0.60 - 1.10 mg/dL [facility] (CR) Comment:Testing performed by : [address], [address] Glucose 130 70 - 199 mg/dL CERNER [...] was last revised 2022. 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 MF: SHERYL Report ID: [id number] Reading Location: [place] [address] us Charlie Mtz MD IMG DXA PROCEDURES [...] Lux Sin M.D. AM: AM Report ID: [id number] Reading Location: [place] [address] Procedure Note Lux Sin MD - 07/14/2023 [...] Lux Sin M.D. AM: AM Report ID: [id number] Reading Location: [id number] Charlie Mtz MD IMG CT PROCEDURES Final R esult * COLONOSCOPY (05/22/2019 10:39 AM SNUBBER) Anatomical Region Laterality Modality Other Narrative Procedure Note Marlon Cronin MD - 05/22/2019 10:39 AM CST [facility] Patient Name: Brittanie Gambino Procedure Date: 05/22/2019 10:39 AM Date of : 1955 Admit Type: Outpatient Age: 63 Gender: Female Attending MD: Marlon Cronin M.D. Room: [facility] ENDOSCOPY ROOM 2 Note Status: Finalized Patient [...] scope was passed under direct vision.The Colonoscope [id number] was introducedthrough the anus and advanced to [...] malignant neoplasm of colon CPT copyright 2017 [employer]. All rights reserved. The codes documented in this report are preliminary and upon health information coder reviewmay be revised to meet current compliance requirements. Recognized by the [employer] for promoting quality in endoscopy us Marlon Cronin MD ENDOSCOPY PROCEDURES Final Re sult * Hepatitis C antibody (05/18/2019 10:48 AM SNUBBER) Hep C Ab Negative Negative SUJATA FARIAS ([place]) Comment:Testing performed by : [facility], [address] [place] [address]., [address] Blood specimen (specimen) 05/18/2019 10:48 AM SNUBBER 05/18/2019 1:38 PM SNUBBER us Sydney Tompkins NP LAB MICROBIOLOGY - GENERAL O RDERABLES Final Result SUJATA FARIAS ([place]) 1 [facility] [place] [address] from Last 3 Months or Most Recently Relevant to Health Maintenance Insurance MEDICARE MEDICARE [facility] MEDICARE [facility] Advance Directives For more information, please contact: [phone] * Full Code (Latest Code Status on File) Date Activated Date Inactivated Comments 08/01/2024 11:32 AM * Full Code Date Activated Date Inactivated Comments 03/13/2023 4:52 AM 03/16/2023 6:28 PM * Full Code Date Activated Date Inactivated Comments 07/01/2020 12:51 PM 07/01/2020 6:46 PM * Full Code Date Activated Date Inactivated Comments 05/22/2019 10:14 AM 05/22/2019 4:30 PM * Full Code Date Activated Date Inactivated Comments 05/22/2019 10:14 AM 05/22/2019 10:14 AM Care Teams Senior Market Research Analyst Relationship Specialty Start Date End Date Charlie Mtz MD [address] [place] [address] PCP - General Family Medicine 05/28/21 Sintia Santoyo NP Nurse Practitioner Obstetrics and Gynecology 07/13/18 Davey Myles NP Nurse Practitioner Family Practice 10/16/20
--- OUTSIDE RECORDS SUMMARY | 2024-08-01 20:50 | XMS_ITS | Clinical Summary ---
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 HYPERLIPIDEMIA NEC/NOS 01/20/2012 CE BIRCH MD Active Last Documented On 2 3:01PM ; [facility] HYPERTENSION NOS 12/09/2011 CE BIRCH MD Ac tive Last Documented On 2 10:05AM ; [facility] Plan of Treatment No [...] On 9 2:24PM By DESHAWN DOYLE ; [facility] Tribenzor 40-10-25MG Oral Tablet 11/17/2018 Provider : Diagnosis: Last Documented On 9 2:24PM By DESHAWN DOYLE ; [facility] Omeprazole 20MG Oral Tablet Delayed Release 2017 Provider: Diagnosis: Last Documented On 8 12:41PM By DONALDO DOYLE ; [facility] Bystolic 20MG Oral Tablet 11/16/2017 Provider: Diagnosis: Last Documented On 8 12:41PM By DONALDO DOYLE ; [facility] Fetzima 80MG Oral Capsule Extended Release 24 Hour 11/2017 Provider: Diagnosis: Last Documented On 8 12:42PM By DONALDO DOYLE ; [facility] Biotin 5000MCG Oral Capsule 11/16/2017 Provider: Diagnosis: Last Documented On 8 12:42PM By DONALDO DOYLE ; [facility] Fish Oil 1000MG Oral Capsule 11/16/2017 Provider : Diagnosis: Last Documented On 8 12:42PM By DONALDO DOYLE ; [facility] Xaixvnckxs-Yhbeewdapf-HACE 40-10-25MG Oral Tablet 11/2017 Provider: Diagnosis: Last Documented On 8 12:43PM By DONALDO DOYLE ; [facility] Welchol 625 MG OR TABS 01/15/2013 Provider: Diagnosis: Last Documented On 01/15/2013 1:05PM By DONALDO DOYLE ; [facility] Bystolic 5 MG OR TABS 12/09/2011 Provider: Diagnosis: Last Documented On 12/09/2011 10:03AM By AV CORCORAN ; [facility] Spiriva HandiHaler 18 MCG IN CAPS 12/09/2011 Provide r: Diagnosis: Last Documented On 12/09/2011 10:04AM By AV CORCORAN ; [facility] Medications Administered Includes: Administered [...] Active Last Documented On 9 2:23PM ; [facility] Codeine Allergy 06/09/2009 Active Last Documented On 9 2:23PM ; [facility] Encounters Encounter Provider Location Date Check-In Time Check- Out Time Diagnosis [Patient Encounter] ROWAN INGRAM [facility] [place] 8 1:43PM 11:59PM Clinical Notes Includes: Clinical Notes from this encounter No Clinical Notes Recorded
--- OUTSIDE RECORDS SUMMARY | 2024-08-01 20:50 | XMS_ITS | Referral Summary ---
Author Organization [facility] Virtual Care Address [facility] [place] [address] Phone Care Team Providers Care Float Builder Name Role Phone Sintia Santoyo DISABILITY RATER Unavailable [phone] Davey Myles DISABILITY RATER Unavailable [phone] Charlie Mtz MD Primary Care Provider [phone] Encounters Date Type Department Care Team Description 08/01/2024 9:10 AM CDT - 08/01/2024 7:50 PM CDT Hospital Encounter [facility] [address] [place] [address] Erin Irizarry MD Kheirkhahan, Nazanin, MD Other acute pulmonary embolism without acute cor pulmonale (HCC) (Primary Dx) Discharge Disposition: Discharge to a critical access hospital 07/27/2024 Results [facility] [address] [phone] Charlie Mtz MD 07/24/2024 Orders Only [facility] [address] [place] [address] Charlie Mtz MD 07/17/2024 1:00 PM CDT Office Visit [facility] Primary Care at [address] [place] [phone] Michell Burgos NP Otalgia, left ear (Primary Dx) 07/10/2024 Nurse Triage [facility] [address] [address] Charlie Mtz MD 07/10/2024 4:00 PM CDT Office Visit [facility] [address] [phone] Ellie Wright, YARA Acute non-recurrent maxillary sinusitis (Primary Dx); Acute diffuse otitis externa of left ear; Class 2 severe obesity due to excess calories with serious comorbidity and body mass index (BMI) of 39.0 to 39.9 in adult (HCC) 07/10/2024 Nurse Triage [facility] [address] [phone] Charlie Mtz MD 07/09/2024 Telephone [facility] [address] [phone] Charlie Mtz MD Medical Question/Miscellaneo us 06/21/2024 Telephone [facility] [address] [phone] Charlie Mtz MD Forms Request 06/05/2024 Telephone [facility] [address] [phone] Charlie Mtz MD 05/31/2024 Telephone [facility] [address] [address] Charlie Mtz MD Medical Records Request 05/31/2024 Telephone [facility] [address] [phone] Charlie Mtz MD Test Results 05/11/2024 1:02 PM PREDICTIVE MAINTENANCE TECHNICIAN - 05/11/2024 11:59 PM PREDICTIVE MAINTENANCE TECHNICIAN Hospital Encounter [facility] [address] [place] [address] Essential (primary) hypertension Discharge Disposition: Discharge to home or self care 05/11/2024 10:00 AM PREDICTIVE MAINTENANCE TECHNICIAN Lab [facility] [address] [place] [address] from Last 3 Months Allergies Active Allergy [...] tablet/capsu le 3 5 07/18/19 25 Discontin ued(Patie nt Reported) ciprofloxacin- dexAMETHasone (CIPRODEX) otic suspensionIndi [...] days 14 capsule 5 07/18/19 25 Discontin ued(Patie nt Reported) Active Problems Problem Noted Date [...] loss Assessment & Plan (06/16/2023 1:29 PM PREDICTIVE MAINTENANCE TECHNICIAN): Stable, generally well controlled, patient reports no [...] control Assessment & Plan (05/28/2021 1:00 PM PREDICTIVE MAINTENANCE TECHNICIAN): Not well controlled, encouraged patient continue to [...] options Assessment & Plan (06/16/2023 1:30 PM PREDICTIVE MAINTENANCE TECHNICIAN): Stable, well controlled, improving; patient reports she is more physically active, engaging in social activities, re-engage with yarsanism Would like to decrease Zoloft given vivid [...] 02/22/2020 Assessment & Plan (02/22/2020 12:16 PM PREDICTIVE MAINTENANCE TECHNICIAN): Small patch of atopic dermatitis on mid [...] today. Assessment & Plan (04/17/2019 2:34 PM PREDICTIVE MAINTENANCE TECHNICIAN): Repeat CBC in 2 weeks. She was previously taking steroids during her ED visit which may have falsely elevated her white blood count. Vitamin D deficiency 04/17/2019 Assessment & Plan (02/22/2020 9:32 AM PREDICTIVE MAINTENANCE TECHNICIAN): Last vitamin d level 12/07/2019 52. Recommend vitamin d3 2000 international units once daily. Assessment & Plan (11/24/2019 3:46 PM CDT): Continue vitamin d2 50,000 International units once weekly and repeat vitamin d level today. Assessment & Plan (04/17/2019 2:34 PM PREDICTIVE MAINTENANCE TECHNICIAN): [place] [address] units once weekly. Get vitamin-D level in 2 weeks with labs. High risk of cardiac event 04/17/2019 Assessment & Plan (09/02/2022 4:40 PM CDT): Stable, well controlled; continue pravastatin 40 mg daily; continue ASA 81 mg daily Encourage risk modifications Assessment & Plan (04/17/2019 2:34 PM PREDICTIVE MAINTENANCE TECHNICIAN): Patient's ASCVD risk score is 13.3%. I recommended that she be on statin instead of bile acid sequestrant for CV prophylaxis. Start atorvastatin 10 mg daily. Mixed hyperlipidemia 04/17/2019 Assessment & Plan (12/19/2023 10:41 AM CDT): Chronic, stable, well controlled Continue Pravastatin 40 mg daily Assessment & Plan (06/16/2023 1:29 PM PREDICTIVE MAINTENANCE TECHNICIAN): Stable, well controlled, lipids in optimal range Continue pravastatin 40 mg daily Assessment & Plan (06/09/2022 4:56 PM PREDICTIVE MAINTENANCE TECHNICIAN): Well controlled, lipids at target Continue pravastatin 40 mg nightly Assessment & Plan (12/15/2021 4:59 PM CDT): Stable, well controlled; continue pravastatin 40 mg nightly Assessment & Plan (09/08/2021 2:06 PM CDT): Stable, generally well controlled; continue pravastatin 40 mg nightly Assessment & Plan (07/09/2021 11:01 AM CDT): Stable, well controlled; continue pravastatin 40 mg nightly Assessment & Plan (05/28/2021 12:58 PM PREDICTIVE MAINTENANCE TECHNICIAN): Stable, well controlled last lipid panel demonstrated normal total cholesterol, LDL mildly elevated 114; continue to monitor encourage low-fat high-fiber diet Continue pravastatin 40 mg daily Assessment & Plan (11/30/2020 1:37 PM CDT): Lipids are well controlled on pravastatin 40 mg once daily. Assessment & Plan (02/22/2020 12:13 PM PREDICTIVE MAINTENANCE TECHNICIAN): Lipids are well controlled on pravastatin 40 mg once daily. Assessment & Plan (11/24/2019 3:43 PM CDT): Continue pravastatin 40 mg daily. Repeat lipid profile today. Recommended Mediterranean diet. Do not think keto diet facilitates a heart healthy diet. Assessment & Plan (09/07/2019 1:31 PM CDT): Continue pravastatin 40 mg daily. Repeat lipid profile in November. Assessment & Plan (04/17/2019 2:35 PM PREDICTIVE MAINTENANCE TECHNICIAN): Lipid abnormalities are unchanged. Nutritional counseling was [...] visit; 124/76 Continue Bystolic 20 mg and Voisjthvge-eommjtodkv-AJWK 40-10-25 mg daily Assessment & Plan (08/08/2023 1:14 PM CDT): Stable, well controlled; blood pressure goals; continue Bystolic 20 mg daily, tvlpkqgodo-mxxmcuutkm-uguaxskaqcgzezxebzz 40-10-25 mg Assessment & Plan (06/16/2023 1:29 PM PREDICTIVE MAINTENANCE TECHNICIAN): Stable, well controlled, blood pressure at goal; patient reports no chest pain or headaches Continue Bystolic 20 mg daily, iniqokxbov-idbeaysnjt-qaobgnksprdhibafunq 40-10-251 tablet daily; Assessment & Plan (09/02/2022 4:39 PM CDT): Stable, well controlled; blood pressure at target No chest pain or headaches Continue Bystolic 20 mg daily, Tribenzor 40-10-251 tablet daily Assessment & Plan (06/09/2022 4:57 PM PREDICTIVE MAINTENANCE TECHNICIAN): Stable, blood pressure at target Continue Tribenzor [...] daily Assessment & Plan (05/28/2021 12:59 PM PREDICTIVE MAINTENANCE TECHNICIAN): Stable, generally well controlled; blood pressure mildly [...] appointment. Assessment & Plan (02/22/2020 12:14 PM PREDICTIVE MAINTENANCE TECHNICIAN): Hypertension is improved. Continue current treatment regimen. [...] appointment. Assessment & Plan (04/17/2019 2:32 PM PREDICTIVE MAINTENANCE TECHNICIAN): Hypertension is improving with treatment. Continue current [...] cessation Assessment & Plan (05/28/2021 1:02 PM PREDICTIVE MAINTENANCE TECHNICIAN): Patient continues to smoke, smoking about 1 pack per day Encouraged patient to continue to work towards complete cessation Patient understands importance of smoking, but is not yet gotten to change mind set Assessment & Plan (11/30/2020 1:39 PM CDT): Encourage smoking cessation. Assessment & Plan (02/22/2020 12:12 PM PREDICTIVE MAINTENANCE TECHNICIAN): Encourage smoking cessation. Had quit for almost [...] phone. Assessment & Plan (04/17/2019 2:33 PM PREDICTIVE MAINTENANCE TECHNICIAN): Encourage smoking cessation. Assessment & Plan (11/15/2018 [...] daily Assessment & Plan (06/09/2022 4:59 PM PREDICTIVE MAINTENANCE TECHNICIAN): Stable, last A1c was 6.2; at target [...] daily Assessment & Plan (05/28/2021 12:59 PM PREDICTIVE MAINTENANCE TECHNICIAN): Continue to monitor, check A1c to evaluate blood sugars are continue to elevate Continue Tradjenta 5 mg Assessment & Plan (11/30/2020 1:38 PM CDT): A1c today Continue Tradjenta 5 mg once daily. Assessment & Plan (02/22/2020 12:13 PM PREDICTIVE MAINTENANCE TECHNICIAN): A1c well controlled at 6.3. Continue Tradjenta 5 mg once daily. Assessment & Plan (11/24/2019 3:45 PM CDT): Patient on Tradjenta 5 mg daily. Continue medication and diet lifestyle modifications. Assessment & Plan (04/17/2019 2:32 PM PREDICTIVE MAINTENANCE TECHNICIAN): Patient on Tradjenta 5 mg daily. A1c [...] daily Assessment & Plan (06/09/2022 4:58 PM PREDICTIVE MAINTENANCE TECHNICIAN): Stable, improving, quit smoking June 25, 2021; [...] dyspnea, though does report decreased insurance and alf Discussed with patient importance of continued activity and exercise in order to maintain pulmonary help Congratulated patient on smoking cessation will continue Spiriva 18 mcg daily Assessment & Plan (05/28/2021 1:01 PM PREDICTIVE MAINTENANCE TECHNICIAN): Stable, generally well controlled; patient has few [...] p.r.n. Assessment & Plan (02/22/2020 12:16 PM PREDICTIVE MAINTENANCE TECHNICIAN): COPD is worsening. Discussed monitoring symptoms and [...] steroids. Assessment & Plan (04/17/2019 2:32 PM PREDICTIVE MAINTENANCE TECHNICIAN): COPD is improving with treatment. Discussed monitoring [...] levels Assessment & Plan (06/09/2022 4:58 PM PREDICTIVE MAINTENANCE TECHNICIAN): Not well controlled, patient reports symptoms beginning worse; patient reports episodes of agoraphobia; worry about leaving house due to concerns for panic attacks Patient every 6 months ago; continues to have grief related to also Refer to [facility] for individual counseling Continue sertraline 100 mg daily; start diazepam 2 mg p.r.n. for panic attacks Assessment & Plan (05/28/2021 1:01 PM PREDICTIVE MAINTENANCE TECHNICIAN): Not well controlled, patient has multiple recent [...] 07/12/2018 Assessment & Plan (06/16/2023 1:30 PM PREDICTIVE MAINTENANCE TECHNICIAN): Not well controlled, has been having some difficulty; recently neighbor mode throwing up significant amounts of dust which worsened her symptoms Hoarse voice and nasal changes in swelling, especially morning Continue daily antihistamine, continue Flonase 2 sprays 1-2 times daily Assessment & Plan (12/15/2021 5:00 PM CDT): Generally stable; patient reports symptoms, on-off Continue bgty-ono-dsebcdm antihistamine; Flonase 2 sprays each nostril daily [...] (08/05/2020): Added automatically from request for surgery [id number] Assessment & Plan (09/09/2020 5:51 PM CDT): [...] up. Assessment & Plan (05/19/2020 4:51 PM PREDICTIVE MAINTENANCE TECHNICIAN): Noted from recent urinalysis. Will repeat urinalysis to better evaluate her urine. Upper abdominal pain 05/08/2020 021 Overview (05/08/2020): Added automatically from request for surgery [id number] Assessment & Plan (05/19/2020 4:51 PM PREDICTIVE MAINTENANCE TECHNICIAN): Patient has chronic intermittent upper abdominal pain [...] 11/30/2020 Assessment & Plan (02/22/2020 12:13 PM PREDICTIVE MAINTENANCE TECHNICIAN): Patient has a new cough over the last 1 week. I recommended testing for COVID - 19 considering her new symptoms. Reviewed self isolation procedures. Referral for testing placed today. Abnormal feces 05/10/2019 12/19/2023 Overview (05/10/2019): Added automatically from request for surgery [id number] Obesity (BMI 30-39.9) 07/12/20182021 Assessment & Plan [...] daily. Assessment & Plan (04/17/2019 2:32 PM PREDICTIVE MAINTENANCE TECHNICIAN): Obesity is worsening. Discussed the patient's BMI. [...] again. Assessment & Plan (04/27/2017 10:00 AM PREDICTIVE MAINTENANCE TECHNICIAN): Mild pain. Associated with tenderness in the [...] drink = 0.6 oz pur e alcohol) [facility] ClassDojoities Answer Date Recorded In the past 12 months has [employer], gas, oil, or water [employer] threatened to shut off services in your [...] week 03/18/2023 How often do you attend [facility] or [facility] services? More than 4 times per year 03/18/2023 Do you belong to any clubs o r organizations such as yarsanism groups, unions, fraternal or athletic groups, or [...] place to sleep or slept in a fdc (including now)? No 03/18/2023 Personal Safety Answer [...] on file Legal Sex Female 3:09 PM PREDICTIVE MAINTENANCE TECHNICIAN Gender Identity Not on file Sexual Orientation [...] 07/24/2024 ECG 12-LEAD Routine 05/11/2024 1:16 PM PREDICTIVE MAINTENANCE TECHNICIAN Essential (primary) hypertension EGFR Routine 05/11/2024 10:07 AM PREDICTIVE MAINTENANCE TECHNICIAN URINALYSIS, MICROSCOPIC ONLY Routine 05/11/2024 10:07 AM PREDICTIVE MAINTENANCE TECHNICIAN DIFFERENTIAL AUTO Routine 05/11/2024 10: 07 AM PREDICTIVE MAINTENANCE TECHNICIAN BASIC METABOLIC PANEL Routine 05/11/2024 10:07 AM PREDICTIVE MAINTENANCE TECHNICIAN HEMOGLOBIN A1C Routine 05/11/2024 10:07 AM PREDICTIVE MAINTENANCE TECHNICIAN CBC WITH AUTO DIFFERENTIAL Routine 05/11/2024 10:07 AM PREDICTIVE MAINTENANCE TECHNICIAN URINALYSIS AND REFLEX TO MICROSCOPIC AND CULTURE Routine 05/11/2024 10:07 AM PREDICTIVE MAINTENANCE TECHNICIAN SCREENING MAMMOGRAM BILATERAL W ANDREW Schedule Routine, Read Routine (OP Routine) 01/16/2024 2:28 PM CDT Screening mammogram, encounter for DEXA AXIAL SKELETON BONE DENSITY 1 OR MORE SITES Schedule Routine, Read Routine (OP Routine) 01/16/2024 2:16 PM CDT Post-menopausal CT LUNG CANCER SCREENING Schedule Routine, Read Routine (OP Routine) 07/13/2023 5:26 PM CDT Personal history of nicotine dependence COLONOSCOPY 05/22/2019 10:39 AM PREDICTIVE MAINTENANCE TECHNICIAN HEPATITIS C ANTIBODY Routine 05/18/2019 10:48 AM PREDICTIVE MAINTENANCE TECHNICIAN Encounter for hepatitis C screening test for [...] hs delta -1 ng/L [facility] ([facility]) Trop T hs interp Insignificant [facility] ([facility]) Blood 08/01/2024 2:07 PM CDT 08/01/2024 2:12 PM CDT Erin Irizarry MD LAB BLOOD ORDERABLES Molly mukherjee Result [facility] 1 [facility] [place] [address] * Sepsis Lactate w/ Reflex (08/01/2024 2:07 PM CDT) Pathologist [facility] Sepsis Lactate 1.2 0.7 - 2.0 mmol/L Blood 08/01/2024 2:07 PM CDT 08/01/2024 2:12 PM CDT Erin Irizarry MD LAB BLOOD ORDERABLES Molly l Result Performing Organization Address [facility] Co de Phone Number [facility] [address] [place] [address] * Troponin T high-sensitivity 2-hour (08/01/2024 11:07 AM CDT) [facility] Trop T hs 11 <=14 ng/L Comment: Interpretive Data For further hscTnT resources including the diagnostic algorithm and an aid in interpretation, copy and paste this link: https://nrl.testcatalog.org/show/hsTrop Current Interpretive Data last revised 2020. Trop T hs delta 1 ng/L [facility] ([place]) Trop T hs interp Insignificant [facility] ([place]) Blood 08/01/2024 11:0 7 AM CDT 08/01/2024 11:12 AM CDT Erin Irizarry MD LAB BLOOD ORDERABLES Molly l Result [facility] 1 [facility] [place] [address] * Procalcitonin (08/01/2024 11:07 AM CDT) Pathologist [facility] Procalcitonin 0.05 <=0.25 ng/mL Comment:Testing performed by : [facility], [facility] [facility], [place]., [address] Blood 08/01/2024 11:0 7 AM CDT 08/01/2024 3:52 PM CDT us Erin Irizarry MD LAB BLOOD ORDERABLES Molly yaz Result [facility] 1 [facility] Department of Laboratories [place], [place] [id number] * CT Chest PE (CTA) W Contrast [...] Riley Harrington M.D. CH: THOMAS Report ID: [id number] Reading Location: [id number] Procedure Note Riley Harrington Jr., MD - [...] Riley Harrington M.D. CH: THOMAS Report ID: [id number] Reading Location: [id number] us Erin Irizarry MD IMG CT PROCEDURES Final [...] Riley Harrington M.D. CH: THOMAS Report ID: [id number] Reading Location: [id number] Procedure Note Riley Harrington Jr., MD - [...] Riley Harrington M.D. CH: THOMAS Report ID: [id number] Reading Location: [id number] Erin Irizarry MD IMG US PROCEDURES Final [...] Jeremy Goetz M.D. INDY: INDY Report ID: [id number] Reading Location: [id number] Procedure Note Jeremy Goetz MD - 08/01/2024 EXAM DESCRIPTION: XR CHEST 1 VIEW REASON FOR STUDY: Acute shortness of breath for 2 days in a patient with history of COPD. Complaint of ecchymosis, redness, and warmth to rightlower extremity status post recent right knee replacement. TECHNIQUE: Single frontal radiographic view(s) of the chest. COMPARISON: Chest radiograph 03/13/2023; CT lung cancer [id number]/03/2024 FINDINGS: LUNGS: No focal consolidation. No pleural effusion. No pneumothorax. Emphysematous changes. HEART/MEDIASTINUM: Stable cardiomediastinal silhouette better evaluatedon prior CT imaging. LINES/TUBES: None. BONES: No acute osseous abnormality. IMPRESSION: No radiographic evidence of acute cardiopulmonary process. THIS IS AN ELECTRONICALLY VERIFIED FINAL REPORT 08/01/2024 9:51 AM - Electronically signed by Jeremy Goetz M.D. INDY: INDY Report ID: [id number] Reading Location: [place] [address] Erin Irizarry MD IMG XR PROCEDURES Final R esult * Troponin T high-sensitivity series (baseline, 2hr, 4hr, 6hr) (08/01/2024 9:15 AM CDT) Pathologist [facility] Trop T hs 10 <=14 ng/L Comment: Interpretive Data For further hscTnT resources including the diagnostic algorithm and an aid in interpretation, copy and paste this link: https://nrl.testcatalog.org/show/hsTrop Current Interpretive Data last revised 2020. Blood 08/01/2024 9:15 AM CDT 08/01/2024 9:20 AM CDT Erin Irizarry MD LAB BLOOD ORDERABLES Molly l Result [facility] ([place] 1 [facility] Department [place] [address] * Influenza A/B, RSV, and COVID-19 PCR Nasopharyngeal (08/01/2024 9:15 AM CDT) [facility] COVID-19 RNA Negative Negative Influenza A RNA Negative Negative [facility] ([place]) Influenza B RNA Negative Negative [facility] ([place]) RSV RNA Negative Negative [facility] ([place]) Comment: Interpretive data: Testing performed by [facility]. This test is performed using the Compology Xpert Xpress CoV-2/Flu/RSV plus assay. This is a multiplex, real- time reverse transcriptase PCR assay intended for the qualitative detection of nucleic acid from SARS-CoV-2, influenza A, influenza B, and respiratory syncytial virus. This assay has been cleared by the [place] Food and Drug administration. The performance characteristics have been verified by the [facility]. Results must be considered in the clinical context, and a negative result does not rule out infection. Interpretive Data last revised 2023 Nasopharyngeal 08/01/2024 9: 15 AM CDT 08/01/2024 9:20 AM CDT Narrative [facility] ([place]) - 08/01/2024 10:02 AM CDT Is the Patient experiencing symptoms consistent with COVID?->Yes us Erin Irizarry MD LAB MICROBIOLOGY - GENERA L ORDERABLES Final Result Performing Organization Address City/[facility]/ZIP Co de Phone Number [facility] ([place] 1 [facility] [place] [address] * (ABNORMAL) Sepsis Lactate w/ Reflex (08/01/2024 9:15 AM CDT) Pathologist [facility] Sepsis Lactate 2.4(H) 0.7 - 2.0 mmol/L Blood 08/01/2024 9:15 AM CDT 08/01/2024 9:20 AM CDT Erin Irizarry MD LAB BLOOD ORDERABLES Molly l Result [facility] ([place]) [address] [place] [address] [place] [address] * eGFR (08/01/2024 9:15 AM CDT) eGFR >90 >=60 mL/min/1. 73 m2 Comment: [...] BLOOD ORDERABLES Molly mukherjee Result [facility] ([place] 1 [facility] Department [place] [address] * (ABNORMAL) Differential, auto (08/01/2024 9:15 AM CDT) Neutrophil abs 9.79(H) 1.50 - 6.50 K/cumm Imm gran abs 0.11(H) 0.00 - 0.10 K/cumm [facility] ([place]) Lymphocyte abs 1.45 0.80 - 3.30 K/cumm [facility] ([place]) Monocyte abs 0.80 0.20 - 0.80 K/cumm [...] Imm gran pct 0.9 % [facility] ([place]) Comment: Interpretive Data Percent cell count reference [...] revised on 2017. Monocyte pct 6.5 % [facility] ([facility]) Comment: Interpretive Data Percent cell [...] LAB BLOOD ORDERABLES Molly mukherjee Result [facility] ([place]) 1 [facility] Department [place] [address] * (ABNORMAL) Pro B-type natriuretic peptide (08/01/2024 [...] Heart J. 2006:27:330-337. 2. Zach RW, Heather URIARTE. J. AM Connie Cardiol: Cardiovasc Imag. 2009;2: 216- 225. Interpretive Data Last Revised Date: 2017. Blood 08/01/2024 9:15 AM CDT 08/01/2024 9:20 AM CDT us Erin Irizarry MD LAB BLOOD ORDERABLES Molly l Result [facility] ([place] 1 [facility] Department of Laboratories [place], [place] [id number] * (ABNORMAL) CBC with auto differential (08/01/2024 9:15 AM CDT) WBC 12.30(H) 3.80 - 9.90 K/cumm Hgb [...] (CR) MCHC 31.3(L) 32.3 - 35.7 g/dL [facility] (CR) RDW CV 17.2(H) 11.1 - 14.9 % [facility] (CR) RDW SD 53.5(H) 35.7 - 48.1 fL [facility] (CR) NRBC abs 0.04(H) 0.00 - 0.01 K/cumm [facility] (CR) Blood 08/01/2024 9:15 AM CDT 08/01/2024 9:20 AM CDT Erin Irizarry MD LAB BLOOD ORDERABLES Molly l Result Performing Organization Address [facility]/ZIP Co de Phone Number [facility] 1 [facility] [place] [address] * (ABNORMAL) aPTT (08/01/2024 9:15 AM CDT) aPTT 24(L) 28 - 38 sec [facility] (CR) Comment: Interpretive Data Heparin therapeutic range: 66.0 - 100.0 seconds. Range based on correlation with therapeutic heparin activity range of 0.3 - 0.7 Units/mL. Current interpretive data was last revised on 2023. Blood 08/01/2024 9:15 AM CDT 08/01/2024 9:20 AM CDT Erin Irizarry MD LAB BLOOD ORDERABLES Molly l Result [facility] 1 [facility] [place] [address] * (ABNORMAL) Protime-INR (08/01/2024 9:15 AM CDT) PT 15.1(H) 9.7 - 13.0 sec [facility] (CR) INR 1.39(H) 0.90 - 1.20 [facility] (CR) Comment: Interpretive data Oral anticoagulant therapeutic ranges: Venous thromboembolism prophylaxis or treatment: 2.0-3.0 CARDIOLOGY Standard range: 2.0-3.0 High-intensity range: 2.5-3.5 Refer to indication-specific guidelines for appropriate target ranges for prosthetic heart valve replacement. Current interpretive data was last revised on 2019. Blood 08/01/2024 9:15 AM CDT 08/01/2024 9:20 AM CDT Erin Irizarry MD LAB BLOOD ORDERABLES Molly l Result Performing Organization Address City/[facility]/ZIP Co de Phone Number [facility] 1 [facility] [place] [address] * (ABNORMAL) D-dimer, quantitative (08/01/2024 9:15 AM [...] et al. Brit Med J. 2013;346:f2492. Michael et al. Annals Int Med. 2015;163:701-11. Current interpretive data was last revised on 2019. Blood 08/01/2024 9:15 AM CDT 08/01/2024 9:20 AM CDT Erin Irizarry MD LAB BLOOD ORDERABLES Molly l Result Performing Organization Address City/[facility]/ZIP Co de Phone Number [facility] ([place] 1 [facility] [place] [address] * (ABNORMAL) Comprehensive metabolic panel (08/01/2024 9:15 AM CDT) Sodium 140 135 - 145 mmol/L Potassium, pl 3.1(L) 3.3 - 4.9 mmol/L [facility] ([facility]) Chloride 99 97 - 110 mmol/L [facility] (CR) CO2 26 22 - 32 mmol/L [facility] ([facility]) Anion gap 15 2 - 15 mmol/L [facility] ([facility]) BUN 18 6 - 25 mg/dL [facility] ([facility]) Creatinine 0.59(L) 0.60 - 1.10 mg/dL [facility] ([facility]) Comment:Icteric sample, test results may be affected. Glucose 155 70 - 199 mg/dL [facility] ([facility]) [...] ORDERABLES Molly l Result Performing Organization Address [facility]/ZIP Co de Phone Number SUJATA FARIAS (CR) 1 [facility] Department [place] [address] * ECG 12 lead (08/01/2024 9:07 AM CDT) 08/01/2024 9:07 AM CDT Narrative [facility] - 08/01/2024 12:18 PM CDT Vent Rate: 72 bpm RR Interval: 828 msec DC Interval: 143 msec QRS Duration: 102 msec QT Interval: 346 msec QTC Interval: 370 msec P-R-T [place]: 80 - 80 - -31 degrees IMPRESSION: SINUS RHYTHM NONSPECIFIC ST \T\ T-WAVE ABNORMALITY ABNORMAL ECG NO CHANGE FROM PREVIOUS TRACING NOTED Electronically Signed By: Matthew Hunt MD us Erin Irizarry MD ECG ORDERABLES Final Res ult Performing Organization Address [facility] Co de Phone Number [facility] [employer] [facility] * SCAN - RADIOLOGY/IMAGING (07/24/2024) Anatomical Region Laterality Modality Other us Charlie Mtz MD Final Res ult * ECG 12 lead (05/11/2024 1:16 PM PREDICTIVE MAINTENANCE TECHNICIAN) 05/11/2024 1:18 PM PREDICTIVE MAINTENANCE TECHNICIAN Narrative [facility] - 05/11/2024 2:51 PM PREDICTIVE MAINTENANCE TECHNICIAN Vent Rate: 60 bpm RR Interval: 988 msec DC Interval: 153 msec QRS Duration: 94 msec QT Interval: 424 msec QTC Interval: 425 msec P-R-T [place]: 33 - 75 - 47 degrees IMPRESSION: SINUS RHYTHM Probably normal. No prior EKG for comparison Electronically Signed By: Dr Jeff Austin us Jarred Koch MD ECG ORDERABLES Final Result Performing Organization Address [facility] Co de Phone Number [facility] [employer] [facility] * eGFR (05/11/2024 10:07 AM PREDICTIVE MAINTENANCE TECHNICIAN) eGFR >90 >=60 mL/min/1. 73 m2 Comment: [...] was last reviewed 2021. Testing performed by: [address] [address] Blood 05/11/2024 10:0 7 AM PREDICTIVE MAINTENANCE TECHNICIAN 05/11/2024 12:39 PM PREDICTIVE MAINTENANCE TECHNICIAN Jarred Koch MD LAB BLOOD ORDERABLES Final R esult SUJATA FARIAS ([place]) 1 [facility] Department [place] [address] * Differential, auto (05/11/2024 10:07 AM PREDICTIVE MAINTENANCE TECHNICIAN) Neutrophil abs 5.3 1.5 - 6.5 K/cumm Comment:Testing performed by : [facility], [address] [place] [address]., [address] Imm gran abs 0.0 0.0 - 0.1 K/cumm SUJATA FARIAS (CR) Comment:Testing performed by : [address] [address] Lymphocyte abs 2.0 0.8 - 3.3 K/cumm SUJATA FARIAS (CR) Comment:Testing performed by : [address] [address] Monocyte abs 0.6 0.2 - 0.8 K/cumm [facility] (CR) Comment:Testing performed by : [facility], [address] [place] [address]., [address] Eosinophil abs 0.2 0.0 - 0.5 K/cumm [facility] (CR) Comment:Testing performed by : [facility], [address] [place] [address]., [address] Basophil abs 0.1 0.0 - 0.1 K/cumm [facility] (CR) Comment:Testing performed by : [address] [address] Neutrophil pct 64.4 % [facility] (CR) Comment: Interpretive Data Percent cell count reference ranges are not reported, since discordance with absolute values may lead to misinterpretation of CBC data. Current Interpretive Data was last revised on 2017. Testing performed by: [address] [address] Imm gran pct 0.2 % [facility] (CR) Comment: Interpretive Data Percent cell count reference ranges are not reported, since discordance with absolute values may lead to misinterpretation of CBC data. Current Interpretive Data was last revised on 2017. Testing performed by: [address] [address] Lymphocyte pct 24.5 % [facility] (CR) Comment: Interpretive Data Percent cell count reference ranges are not reported, since discordance with absolute values may lead to misinterpretation of CBC data. Current Interpretive Data was last revised on 2017. Testing performed by: [address] [address] Monocyte pct 7.8 % [facility] (CR) Comment: Interpretive Data Percent cell count reference ranges are not reported, since discordance with absolute values may lead to misinterpretation of CBC data. Current Interpretive Data was last revised on 2017. Testing performed by: [address] [address] Eosinophil pct 2.5 % [facility] (CR) Comment: Interpretive Data Percent cell count reference ranges are not reported, since discordance with absolute values may lead to misinterpretation of CBC data. Current Interpretive Data was last revised on 2017. Testing performed by: [address] [address] Basophil pct 0.6 % SUJATA FARIAS (CR) Comment: Interpretive Data Percent cell count reference ranges are not reported, since discordance with absolute values may lead to misinterpretation of CBC data. Current Interpretive Data was last revised on 2017. Testing performed by: [facility], [address] [place] [address]., [address] Blood 05/11/2024 10:0 7 AM PREDICTIVE MAINTENANCE TECHNICIAN 05/11/2024 10:07 AM PREDICTIVE MAINTENANCE TECHNICIAN Jarred Koch MD LAB BLOOD ORDERABLES Final R esult SUJATA FARIAS (CR) 1 [facility] Department [place] [address] * (ABNORMAL) Urinalysis reflex to microscopic and culture Urine, clean voided (05/11/2024 10:07 AM PREDICTIVE MAINTENANCE TECHNICIAN) Color, ur Yellow Yellow Comment:Testing performed by : [address] [address] Clarity, ur Clear Clear SUJATA Hopkins (CR) Comment:Testing performed by : [address] [address] Specific gravity, ur 1.026 1.003 - 1.030 SUJATA FARIAS (CR) Comment:Testing performed by : [address] [address] pH, urine 5.5 SUJATA FARIAS (CR) Comment: Interpretive Data U rine pH is affected by diet, medications, systemic acid-base disturbances, and renal tubular function. pH may affect urinary stone formation. For example, urine pH below 6.0 may help reduce the tendency for calcium phosphate stones and pH greater than 6.0 may reduce the tendency for uric acid stone formation. Source: [employer] Current Interpretive Data was last revised on 2017 Testing performed by: [address] [address] Protein, ur ql Negative Negative [facility] R [facility] (CR) Comment:Testing performed by : [address] [place] [address] Glucose, ur ql Negative Negative [facility] (CR) Comment:Testing performed by : [facility], [address] [place] [address], [address] Ketones, ur Negative Negative [facility] A (CR) Comment:Testing performed by : [address], [address] Bilirubin, ur Negative Negative [facility] (CR) Comment:Testing performed by : [address], [address] Blood, ur Trace(A) Negative [facility] (CR) Comment:Testing performed by : [address], [address] Urobilinogen, ur <2.0 <2.0 mg/dL [facility] (CR) Comment:Testing performed by : [address], [address] Nitrite, ur Negative Negative C[facility]ER A (CR) Comment:Testing performed by : [address], [address] Leukocyte esterase, ur 3+(A) Negative [facility] (CR) Comment:Testing performed by : [address], [address] UA reflex comment Reflex to microscopic UA will be performed. [facility] (CR) Comment:Testing performed by : [address], [address] Urine, clean voided 05/11/2024 10:07 AM PREDICTIVE MAINTENANCE TECHNICIAN 05/11/2024 10:08 AM PREDICTIVE MAINTENANCE TECHNICIAN Jarred Koch MD LAB MICROBIOLOGY - GENERAL O RDERABLES Final Result SUJATA FARIAS (CR) 1 [facility] Department [place] [address] * (ABNORMAL) CBC with auto differential (05/11/2024 10:07 AM PREDICTIVE MAINTENANCE TECHNICIAN) WBC 8.2 3.8 - 9.9 K/cumm Comment:Testing performed by : [address] [place]., [address] Hgb 15.1 11.9 - 15.5 g/dL [facility] (CR) Comment:Testing performed by : [address], [address] Hct 47.9(H) 35.6 - 45.5 % [facility] (CR) Comment:Testing performed by : [address], [address] Plt 227 150 - 400 K/cumm [facility] (CR) Comment:Testing performed by : [address], [address] MPV 10.0 9.1 - 12.3 fL [facility] (CR) Comment:Testing performed by : [address], [address] RBC 5.55(H) 3.90 - 5.20 M/cumm [facility] (CR) Comment:Testing performed by : [address], [address] MCV 86.3 81.3 - 96.4 fL [facility] (CR) Comment:Testing performed by : [address], [address] MCH 27.2 27.1 - 33.3 pg [facility] (CR) Comment:Testing performed by : [address], [address] MCHC 31.5(L) 32.3 - 35.7 g/dL [facility] (CR) Comment:Testing performed by : [address], [address] RDW CV 15.6(H) 11.1 - 14.9 % [facility] (CR) Comment:Testing performed by : [address], [address] RDW SD 49.2(H) 35.7 - 48.1 fL [facility] (CR) Comment:Testing performed by : [address], [address] NRBC abs 0.00 0.00 - 0.01 K/cumm [facility] (CR) Comment:Testing performed by : [address], [address] Blood 05/11/2024 10:0 7 AM PREDICTIVE MAINTENANCE TECHNICIAN 05/11/2024 10:07 AM PREDICTIVE MAINTENANCE TECHNICIAN Jarred Koch MD LAB BLOOD ORDERABLES Final R esult Performing Organization Address [facility] Co de Phone Number SUJATA [facility] ([place]) 1 [facility] [place] [address] * (ABNORMAL) Urinalysis, microscopic only (05/11/2024 10:07 AM PREDICTIVE MAINTENANCE TECHNICIAN) WBC, ur 0-5 0 - 5 Comment:Testing performed by : [address], [address] RBC, ur 0-2 0 - 2 /HPF [facility] (CR) Comment:Testing performed by : [address], [address] Epithelial cells, squamous, ur 11-20(A) 0 - 5 /HPF [facility] (CR) Comment:Testing performed by : [address], [address] Mucous, ur Present(A) SUJATA Hopkins (CR) Comment:Testing performed by : [address], [address] Culture Reflex Comment Reflex conditions for urine culture (WBC >10) not met. [facility] (CR) Comment:Testing performed by : [address], [address] Urine, clean voided 05/11/2024 10:07 AM PREDICTIVE MAINTENANCE TECHNICIAN 05/11/2024 12:24 PM PREDICTIVE MAINTENANCE TECHNICIAN Jarred Koch MD LAB URINE ORDERABLES Final R esult Performing Organization Address [facility]/ZIP Co de Phone Number SUJATA FARIAS (CR) 1 [facility] [place] [address] * (ABNORMAL) Hemoglobin A1c (05/11/2024 10:07 AM PREDICTIVE MAINTENANCE TECHNICIAN) Hgb A1C 6.3(H) 4.0 - 5.6 % Comment:Testing performed by : [address] [address] Estimated Average Glucose 134 mg/dL SUJATA FARIAS (CR) Comment: The ADA recommends reporting an estimated Average Glucose (eAG) with all Hemoglobin A1c results using the equation derived from a study of 507 normal and diabetic adults. Minority populations were underrepresented and children were not included. (Diabetes Care 31:5660-7591, 2008). The eAG is not equivalent to a fasting glucose. Testing performed by: [facility], [address] [place] [address]., [address] Blood 05/11/2024 10:0 7 AM PREDICTIVE MAINTENANCE TECHNICIAN 05/11/2024 10:07 AM PREDICTIVE MAINTENANCE TECHNICIAN Jarred Koch MD LAB BLOOD ORDERABLES Final R esult SUJATA FARIAS ([place]) 1 [facility] Department [place] [address] * (ABNORMAL) Basic metabolic panel (05/11/2024 10:07 AM PREDICTIVE MAINTENANCE TECHNICIAN) [facility] Sodium 142 135 - 145 mmol/L Comment:Testing performed by : [address] [address] Potassium, pl 3.7 3.3 - 4.9 mmol/L SUJATA FARIAS (CR) Comment:Testing performed by : [address], [address] Chloride 101 97 - 110 mmol/L SUJATA FARIAS (CR) Comment:Testing performed by : [address] [address] CO2 27 22 - 32 mmol/L SUJATA FARIAS (CR) Comment:Testing performed by : [address], [address] Anion gap 14 2 - 15 mmol/L SUJATA FARIAS (CR) Comment:Testing performed by : [address], [address] BUN 14 6 - 25 mg/dL SUJATA FARIAS (CR) Comment:Testing performed by : [address] [address] Creatinine 0.51(L) 0.60 - 1.10 mg/dL SUJATA FARIAS (CR) Comment:Testing performed by : [address] [address] Glucose 130 70 - 199 mg/dL SUJATA [...] was last revised 2022. 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 MF: SHERYL Report ID: [id number] Reading Location: [place] [address] Charlie Mtz MD IMG DXA PROCEDURES Final [...] Lux Sin M.D. AM: AM Report ID: [id number] Reading Location: [place] [address] Procedure Note Lux Sin MD - 07/14/2023 [...] Lux Sin M.D. AM: AM Report ID: [id number] Reading Location: [id number] us Charlie Mtz MD IMG CT PROCEDURES Final R esult * COLONOSCOPY (05/22/2019 10:39 AM PREDICTIVE MAINTENANCE TECHNICIAN) Anatomical Region Laterality Modality Other Narrative Procedure Note Marlon Cronin MD - 05/22/2019 10:39 AM CST [facility] Patient Name: Brittanie Gambino Procedure Date: 05/22/2019 10:39 AM Date of : 1955 Admit Type: Outpatient Age: 63 Gender: Female Attending MD: Marlon Cronin M.D. Room: [facility] 2 Note Status: Finalized Patient Profile: Refer to note in patient chart for documentation of history and physical. Procedure: Colonoscopy Indications: Screening for colorectal malignant neoplasm, Last colonoscopy: June 2009 Referring MD: Sydney Tompkins, F.N.P. Providers: Marlon Cronin M.D. Impression: - Hemorrhoids [...] scope was passed under direct vision.The Colonoscope [id number] was introducedthrough the anus and advanced to [...] malignant neoplasm of colon CPT copyright 2017 [employer]. All rights reserved. The codes documented in this report are preliminary and upon authorization rep reviewmay be revised to meet current compliance requirements. Recognized by the [employer] for promoting quality in endoscopy us Marlon Cronin MD ENDOSCOPY PROCEDURES Final Re sult * Hepatitis C antibody (05/18/2019 10:48 AM PREDICTIVE MAINTENANCE TECHNICIAN) Hep C Ab Negative Negative SUJATA JARRETT (CR) Comment:Testing performed by : [facility], [address] [place] [address], [place]., [address] Blood specimen (specimen) 05/18/2019 10:48 AM PREDICTIVE MAINTENANCE TECHNICIAN 05/18/2019 1:38 PM PREDICTIVE MAINTENANCE TECHNICIAN us Sydney Tompkisn NP LAB MICROBIOLOGY - GENERAL O RDERABLES Final Result SUJTAA JARRETT (CR) 1 [facility] [place] [address] from Last 3 Months or Most Recently Relevant to Health Maintenance Insurance MEDICARE [facility] [address] MEDICARE [facility] MEDICARE [facility] [place] [place] [address] Advance Directives For more information, please contact: [phone] * Full Code (Latest Code Status on [...] 10:14 AM 05/22/2019 10:14 AM Care Teams Float Builder Relationship Specialty Start Date End Date Cahrlie Mtz [place] [address] PCP - General Family Medicine 05/28/21 Sintia Santoyo NP Nurse Practitioner Obstetrics and Gynecology 07/13/18 Davey Myles NP Nurse Practitioner Family Practice 10/16/20
--- OUTSIDE RECORDS SUMMARY | 2024-08-01 20:50 | XMS_ITS ---
Care Plan - [facility] Created on: August 01, 2024 PREM GAMBINO : 1955 Sex: Female Author Organization [facility] Address [address] [place] [address] Phone Care Team Providers Care Combatant Diver Qualified Name Role Phone Unavailable Unavailable Unavailable
--- OUTSIDE RECORDS SUMMARY | 2024-08-01 20:51 | XMS_ITS | Encounter Summary ---
Author Organization [facility] Address [address] [place] [address] Care Team Providers Care Jacquard Fixer Name Role Phone Sintia Santoyo INSPECTOR BARREL Unavailable [phone] Davey Myles INSPECTOR BARREL Unavailable [phone] Charlie Mtz MD Primary Care Provider [phone] Encounter Details Date Type Department Care Team (Late st Contact Info) Description 07/27/2024 Results Follow[facility]Up [facility] [address] [address] Charlie Mtz MD [address] [place] [address] Social History Tobacco Use Types Packs/Day Years Used Date Smoking Tobacco: Former Cigarettes 0.8 28 0 06/25/1993 - 06/25/2021 Smokeless Tobacco: Former Quit: 06/25/2021 Alcohol Use Standard Drinks/Week Comments No 0 (1 standard drink = 0.6 oz pur e alcohol) [facility] Utilities Answer Date Recorded In the past 12 months has [email or web address] electric, gas, oil, or water company threatened [...] often do you attend chur ch or islam services? More than 4 times per year 03/18/2023 Do you belong to any clubs o r organizations such as mandaen groups, unions, fraternal or athletic groups, or [...] place to sleep or slept in a skilled nursing (including now)? No 03/18/2023 Personal Safety Answer [...] on file Legal Sex Female 3:09 PM CROSS TIE MAKER Gender Identity Not on file Sexual Orientation [...] Health Improving( 1:51 PM CDT) Lorrie Layton, LEA Note: Patient will establish a [...] documented as of this encounter Care Teams Jacquard Fixer Relationship Specialty Start Date End Date Charlie Mtz MD [address] [place] [address] PCP - General Family Medicine 05/28/21 Sintia Santoyo NP Nurse Practitioner Obstetrics and Gynecology 07/13/18 Davey Myles NP Nurse Practitioner Family Practice 10/16/20 documented as of this encounter
--- OUTSIDE RECORDS SUMMARY | 2024-08-01 20:51 | XMS_ITS | Clinical Summary ---
Author Organization [facility] [employer] Address [address] [place] [place] [address] Care Team Providers Care Supervisor Hydrochloric Area Name Role Phone Jn Delgado MD Primary Care Provider [phone] Source Comments [facility] [employer],non-owned Affiliates and Associated Physician Practices is amultiple site organization consisting of ambulatory clinics and hospital sitesin [place], [place], [place] and [place]. This disclosure is being madepursuant to the Care Everywhere program and may not contain all information available regarding this patient. Last updated 17.[facility] [employer] Allergies Active Allergy Reactions Criticality Noted Date [...] on file Legal Sex Female 5:02 PM BRICK OFF BEARER Gender Identity Not on file Sexual Orientation Not on file Last Filed Vital Signs Vital Sign Reading Time Taken Comments Blood Pressure 122/60 05/11/2016 6:05 PM BRICK OFF BEARER Pulse 89 05/11/2016 6:05 PM BRICK OFF BEARER Temperature 37.2 C (99 F) 05/11/2016 6:05 PM BRICK OFF BEARER Respiratory Rate - - Oxygen Saturation - - Inhaled Oxygen Concentration - - Weight 90.7 kg (200 lb) 05/11/2016 6:05 PM BRICK OFF BEARER Height 160 cm (5' 3 ) 05/11/2016 6:05 PM BRICK OFF BEARER Body Mass Index 35.43 05/11/2016 6:05 PM BRICK OFF BEARER Plan of Treatment Health Maintenance Due Date [...] complete this topic Insurance SUE Care Teams Supervisor Hydrochloric Area Relationship Specialty Start Date End Date Jn Delgado MD [address] [place] [address] PCP - General Internal Medicine 05/11/16
--- OUTSIDE RECORDS SUMMARY | 2024-08-01 20:51 | XMS_ITS | Encounter Summary ---
Author Organization [facility] Address [address] [place] [address] Care Team Providers Care Resource Room Special Education Teacher Name Role Phone Sydney Tompkins NP Primary Care Provider [phone] Sintia Santoyo NP Unavailable [phone] Marlon Cronin MD Unavailable [phone] Davey Myles NP Unavailable [phone] Charlie Mtz MD Primary Care Provider [phone] Denita Jones RN Unavailable [phone] Encounter Details Date Type Department Care Team (Late st Contact Info) Description 03/14/2020 Telephone [facility] [address] [place] [id number] Marilin Galan RT Social History Tobacco Use [...] on file Legal Sex Female 3:09 PM POCKET SECRETARY ASSEMBLER Gender Identity Not on file Sexual Orientation [...] COVID: Suspected 04/28/2020 04/28/2020 04/28/2020 11:48 PM POCKET SECRETARY ASSEMBLER Respiratory Infection (BRITTNY), contact + droplet Comment:Automatically added due to negative COVID-19 result. 04/28/2020 04/28/2020 05/12/2020 3:0 7 AM POCKET SECRETARY ASSEMBLER Exposure, COVID-19 Comment:Added automatically based on COVID19 lab answers indicating exposure risk 03/10/2021 03/10/2021 03/25/2021 3:[address] COVID: Suspected 03/10/2021 03/10/2021 03/10/2021 4:53 PM POCKET SECRETARY ASSEMBLER COVID: Suspected 03/26/2021 03/26/2021 03/26/2021 10:27 PM POCKET SECRETARY ASSEMBLER COVID: Suspected 10/27/2021 10/27/2021 10/27/2021 11:28 AM CDT COVID19 10/27/2021 10/27/2021 11/06/2021 3:05 AM CDT COVID: Recovered Comment:Added based on recent COVID infection. 11/06/2021 12/03/2021 03/06/2022 3:[address] COVID: Suspected 04/30/2022 04/30/2022 04/30/2022 2:24 PM POCKET SECRETARY ASSEMBLER COVID: Suspected 03/08/2023 03/08/2023 03/08/2023 11:30 AM POCKET SECRETARY ASSEMBLER COVID: Suspected 03/12/2023 03/13/2023 03/13/2023 12:59 AM POCKET SECRETARY ASSEMBLER COVID: Suspected 08/01/2024 08/01/2024 08/01/2024 10:03 AM CDT documented as of this encounter Care Teams Resource Room Special Education Teacher Relationship Specialty Start Date End Date Sydney Tompkins NP PCP - General Family Medicine 07/11/18 05/27/21 [place] [address] PCP - General Family Medicine 05/28/21 Sintia Santoyo NP Nurse Practitioner Obstetrics and Gynecology 07/13/18 Marlon Cronin MD Consulting Physician Gastroenterology 07/13/18 10/15/20 Davey Myles NP Nurse Practitioner Family Practice 10/16/20 Denita Jones RN [address] [place] [address] [address] [place] [address] Agricultural Extension Agent 03/17/23 04/19/23 documented as of this encounter
--- OUTSIDE RECORDS SUMMARY | 2024-08-01 20:51 | XMS_ITS ---
Author Organization [facility] Address [address] [place] [address] Phone Care Team Providers Care Ivory Polisher Name Role Phone Unavailable Unavailable Unavailable Problems Includes: Active, inactive, and resolved Problems All Visits Onset Date Resolved Date Provider Condition S tatus Chronic Obstructive Pulmonary Disease 11/17/2018 ROWAN A NAATLY WHNP-BC Active Last Documented On 9 2:25PM ; [facility] Previous Colposcopy 01/15/2013 ROWAN INGRAM WH STOCKROOM COORDINATOR-BC Active Last Documented On 3 12:53PM ; [facility] Note: - FAIZAN! HYPERLIPIDEMIA NEC/NOS 01/20/2012 CE BIRCH MD Active Last Documented On 2 3:01PM ; [facility] HYPERTENSION NOS 12/09/2011 CE BIRCH MD Ac tive Last Documented On 2 10:05AM ; [facility] Plan of Treatment Findings Encounter Date Call if any episodes of post menopausal bleeding - assuming bx results from today are WNL. Advised f/u with pcp if right lower quadrant pain recurs - denies today ENDOMETRIAL BIOPSY with ROWAN INGRAM WHNP-BC 02/23/2019 Last Documented On 9 10:55AM ; [facility] Ordered Clinical summary pro vided to patient ENDOMETRIAL BIOPSY with ROWAN INGRAM WHNP-BC 02/23/2019 Last Documented On 9 10:55AM ; [facility] Ordered Clinical summary pro vided to patient ANNUAL TELEPHONE PLANT POWER OPERATOR EXAM with ROWAN INGRAM WHNP-BC 11/17/2018 Last Documented On 9 2:42PM ; [facility] Ordered Clinical summary pro vided to patient NEW RETAIL SERVICES PROFESSIONAL EXAM with ROWAN INGRAM [facility]- 11/16/2017 Last Documented On 8 1:10PM ; [facility] Ordered follow-up visit 1 ye ar or as needed NEW RETAIL SERVICES PROFESSIONAL EXAM with ROWAN INGRAM [facility]-BC 11/16/2017 Last Documented On 8 1:10PM ; [facility] Ordered Clinical summary pro vided to patient ANNUAL WELL WOMEN EXAM with ROWAN INGRAM [facility]- 01/15/2013 Last Documented On 3 1:17PM ; [facility] Ordered follow-up visit 1 ye ar or as needed ANNUAL WELL WOMEN EXAM with ROWAN INGRAM [facility]- 01/15/2013 Last Documented On 3 1:17PM ; [facility] Ordered Clinical summary pro vided to patient COLPOSCOPY with CE BIRCH MD 01/20/2012 Last Documented On 2 3:34PM ; [facility] Instructions to patient Instructions for patient : B reast Self Exam discussed Last Documented On 9 2:01PM ; [facility] Lose weight Last Documented On 9 2:02PM ; [facility] Colonoscopy Handout given to patient Last Documented On 9 2:02PM ; [facility] Instructions for patient : B reast Self Exam discussed Last Documented On 8 12:16PM ; [facility] Lose weight Last Documented On 8 12:17PM ; [facility] Colonoscopy Handout given to patient Last Documented On 8 12:17PM ; [facility] Instructions for patient : B reast Self Exam discussed Last Documented On 3 12:52PM ; [facility] Lose weight Last Documented On 3 12:52PM ; [facility] Colonoscopy Handout given to patient Last Documented On 3 12:52PM ; [facility] Instructions for patient : B reast Self Exam discussed Last Documented On 2 10:05AM ; [facility] Education and Decision Aids were provided during visit for: INFORMED CONSENT DISCUSSION: Endometrial biopsy was discussed in detail including discomfort, insufficient specimen with need to repeat test, and rare incidence of uterine perforation. Patient expressed understanding of the above and consented to the procedure Last Documented On 9 10:32AM ; [facility] Patient Education: Daily rashi cium and vitamin D Last Documented On 9 2:01PM ; [facility] Patient Education: weight be aring exercise Last Documented On 9 2:01PM ; [facility] Smoking cessation advised Last Documented On 9 2:02PM ; [facility] Patient Education: Daily rashi cium and vitamin D Last Documented On 8 12:16PM ; [facility] Patient Education: weight be aring exercise Last Documented On 8 12:16PM ; [facility] Smoking cessation advised Last Documented On 8 12:47PM ; [facility] Patient counseling : discuss ed with patient importance of f/u re: increased risks of cervical cancer Last Documented On 3 1:17PM ; [facility] Patient Education: Daily rashi cium and vitamin D Last Documented On 3 12:52PM ; [facility] Patient Education: weight be aring exercise Last Documented On 3 12:52PM ; [facility] Smoking cessation advised Last Documented On 3 1:06PM ; [facility] INFORMED CONSENT DISCUSSION: Colposcopy was discussed in detail including risk of post procedure bleeding. Patient is not to have intercourse for 5 days following the procedure. Patient expressed understanding of the above and consented to the procedure Last Documented On 2 3:31PM ; [facility] INFORMED CONSENT DISCUSSION: Endometrial biopsy was discussed in detail including discomfort, insufficient specimen with need to repeat test, and rare incidence of uterine perforation. Patient expressed understanding of the above and consented to the procedure Last Documented On 2 3:33PM ; [facility] STD screening offered and de clined Last Documented On 2 10:05AM ; [facility] Bone Mineral Density Screeni ng guidelines reviewed Last Documented On 2 10:05AM ; [facility] Patient Education: Daily rashi cium and vitamin D Last Documented On 2 10:05AM ; [facility] Patient Education: weight be aring exercise Last Documented On 2 10:05AM ; [facility] Colonoscopy screening guidel ale discussed Last Documented On 2 10:05AM ; [facility] Assessments Includes: Assessments for all patient encounters Findings Encounter Date NORMAL FEMALE EXAM ANNUAL TELEPHONE PLANT POWER OPERATOR EXAM with ROWAN INGRAM [facility] 11/17/2018 Last Documented On 9 2:42PM ; [facility] Screening Malig. Neoplasm Rectum ANNUAL TELEPHONE PLANT POWER OPERATOR EXAM with ROWAN INGRAM [facility]-BC 11/17/2018 Last Documented On 9 2:42PM ; [facility] NORMAL FEMALE EXAM NEW RETAIL SERVICES PROFESSIONAL EXAM with ROWAN ROTH ALBERTO [facility]- 11/16/2017 Last Documented On 8 1:10PM ; [facility] Screening Malig. Neoplasm Rectum NEW RETAIL SERVICES PROFESSIONAL EXAM wi th ROWAN INGRAM [facility]- 11/16/2017 Last Documented On 8 1:10PM ; [facility] NORMAL FEMALE EXAM ANNUAL WELL WOMEN EXAM with Radhika Hopkins [facility] 01/15/2013 Last Documented On 3 1:17PM ; [facility] Screening Malig. Neoplasm Rectum ANNUAL WELL WOMEN EXAM with ROWAN Hopkins NATALY [facility]- 01/15/2013 Last Documented On 3 1:17PM ; [facility] Assessment of abnormal Pap s mear of cervix COLPOSCOPY with CE BIRCH MD 01/20/2012 Last Documented On 2 3:34PM ; [facility] Assessment of abnormal Pap s mear: atypical glandular cells COLPOSCOPY with CE BIRCH MD 01/20/2012 Last Documented On 2 3:34PM ; [facility] Female pelvic pain NEW RETAIL SERVICES PROFESSIONAL EXAM with CE KAPADIA MD 12/09/2011 Last Documented On 2 10:36AM ; [facility] Routine pelvic exam NEW RETAIL SERVICES PROFESSIONAL EXAM with CE SHEPHERD MD 12/09/2011 Last Documented On 2 10:36AM ; [facility] Screening Malig. Neoplasm Rectum NEW RETAIL SERVICES PROFESSIONAL EXAM wi th CE BIRCH MD 12/09/2011 Last Documented On 2 10:36AM ; [facility] Instructions Includes: Instructions for all patient encounters Instructions to patient Instructions for patient : B reast Self Exam discussed Last Documented On 9 2:01PM ; [facility] Lose weight Last Documented On 9 2:02PM ; [facility] Colonoscopy Handout given to patient Last Documented On 9 2:02PM ; [facility] Instructions for patient : B reast Self Exam discussed Last Documented On 8 12:16PM ; [facility] Lose weight Last Documented On 8 12:17PM ; [facility] Colonoscopy Handout given to patient Last Documented On 8 12:17PM ; [facility] Instructions for patient : B reast Self Exam discussed Last Documented On 3 12:52PM ; [facility] Lose weight Last Documented On 3 12:52PM ; [facility] Colonoscopy Handout given to patient Last Documented On 3 12:52PM ; [facility] Instructions for patient : B reast Self Exam discussed Last Documented On 2 10:05AM ; [facility] Education and Decision Aids were provided during visit for: INFORMED CONSENT DISCUSSION: Endometrial biopsy was discussed in detail including discomfort, insufficient specimen with need to repeat test, and rare incidence of uterine perforation. Patient expressed understanding of the above and consented to the procedure Last Documented On 9 10:32AM ; [facility] Patient Education: Daily rashi cium and vitamin D Last Documented On 9 2:01PM ; [facility] Patient Education: weight be aring exercise Last Documented On 9 2:01PM ; [facility] Smoking cessation advised Last Documented On 9 2:02PM ; [facility] Patient Education: Daily rashi cium and vitamin D Last Documented On 8 12:16PM ; [facility] Patient Education: weight be aring exercise Last Documented On 8 12:16PM ; [facility] Smoking cessation advised Last Documented On 8 12:47PM ; [facility] Patient counseling : discuss ed with patient importance of f/u re: increased risks of cervical cancer Last Documented On 3 1:17PM ; [facility] Patient Education: Daily rashi cium and vitamin D Last Documented On 3 12:52PM ; [facility] Patient Education: weight be aring exercise Last Documented On 3 12:52PM ; [facility] Smoking cessation advised Last Documented On 3 1:06PM ; [facility] INFORMED CONSENT DISCUSSION: Colposcopy was discussed in detail including risk of post procedure bleeding. Patient is not to have intercourse for 5 days following the procedure. Patient expressed understanding of the above and consented to the procedure Last Documented On 2 3:31PM ; [facility] INFORMED CONSENT DISCUSSION: Endometrial biopsy was discussed in detail including discomfort, insufficient specimen with need to repeat test, and rare incidence of uterine perforation. Patient expressed understanding of the above and consented to the procedure Last Documented On 2 3:33PM ; [facility] STD screening offered and de clined Last Documented On 2 10:05AM ; [facility] Bone Mineral Density Screeni ng guidelines reviewed Last Documented On 2 10:05AM ; [facility] Patient Education: Daily rashi cium and vitamin D Last Documented On 2 10:05AM ; [facility] Patient Education: weight be aring exercise Last Documented On 2 10:05AM ; [facility] Colonoscopy screening guideyaz aguilera discussed Last Documented On 2 10:05AM ; [facility] Medical Equipment - Implanted Devices Includes: Current and historical Devices No Medical Equipment Recorded Medications Includes: Current and historical Medications Current Medications (continue as prescribed) Co Q10 100MG Oral Capsule 11/17/2018 Provider: Diagnosis: Last Documented On 9 2:24PM By DESHAWN DOYLE ; [facility] Tribenzor 40-10-25MG Oral Tablet 11/17/2018 Provider : Diagnosis: Last Documented On 9 2:24PM By DESHAWN DOYLE ; [facility] Omeprazole 20MG Oral Tablet Delayed Release 2017 Provider: Diagnosis: Last Documented On 8 12:41PM By DONALDO DOYLE ; [facility] Bystolic 20MG Oral Tablet 11/16/2017 Provider: Diagnosis: Last Documented On 8 12:41PM By DONALDO DOYLE ; [facility] Fetzima 80MG Oral Capsule Extended Release 24 Hour 11/2017 Provider: Diagnosis: Last Documented On 8 12:42PM By DONALDO DOYLE ; [facility] Biotin 5000MCG Oral Capsule 11/16/2017 Provider: Diagnosis: Last Documented On 8 12:42PM By DONALDO DOYLE ; [facility] Fish Oil 1000MG Oral Capsule 11/16/2017 Provider : Diagnosis: Last Documented On 8 12:42PM By DONALDO DOYLE ; [facility] Ugermbdguv-Ofsrfamddy-CSWN 40-10-25MG Oral Tablet 11/2017 Provider: Diagnosis: Last Documented On 8 12:43PM By DONALDO DOYLE ; [facility] Welchol 625 MG OR TABS 01/15/2013 Provider: Diagnosis: Last Documented On 01/15/2013 1:05PM By DONALDO DOYLE ; [facility] Bystolic 5 MG OR TABS 12/09/2011 Provider: Diagnosis: Last Documented On 12/09/2011 10:03AM By AV CORCORAN ; [facility] Spiriva HandiHaler 18 MCG IN CAPS 12/09/2011 Provide r: Diagnosis: Last Documented On 12/09/2011 10:04AM By AV CORCORAN ; [facility] Past Medications on file Ergocalciferol [id number] Oral Capsule 11/16/2017 - 12/2018 Provider: Diagnosis: Last Documented On 9 2:24PM By DESHAWN DOYLE ; [facility] Tribenzor 40-10-25 MG OR TABS 12/09/2011 - 11/16/2017 Provider: Diagnosis: Last Documented On 8 12:42PM By DONALDO DOYLE ; [facility] Vytorin 10-20 MG OR TABS 12/09/2011 - 01/15/2013 Provi vera: Diagnosis: Last Documented On 01/15/2013 1:05PM By DONALDO DOYLE ; [facility] Keflex 500 MG OR CAPS 01/30/2008 - 02/06/2008 Provider : Diagnosis: Last Documented On 06/09/2009 12:22PM By VIRIDIANA PINTO ; [facility] Medications Administered Includes: Administered Medications in patient's chart No Administered Medications Recorded Results Includes: Results from 08/02/2023 through 08/01/2024 No Results Recorded For Specified Dates History of Present Illness History of Present Illness not supported for this document type No History of Present Illness Recorded Social History Description Last Updated Alcohol use 02/23/2019 Last Documented On 9 10:55AM ; [facility] Cigarette smoking 02/23/2019 Last Documented On 9 10:55AM ; [facility] In monogamous relationship 02/23/2019 Last Documented On 9 10:55AM ; [facility] Not using drugs 02/23/2019 Last Documented On 9 10:55AM ; [facility] Yazidism affiliation JAINISM 9 Last Documented On 9 10:55AM ; [facility] Sexually active with 1 partners in the l ast year 02/23/2019 Last Documented On 9 10:55AM ; [facility] Smoking status : Current everyday smoker 02/23/2019 Last Documented On 9 10:55AM ; [facility] Social history unchanged 02/23/2019 Last Documented On 9 10:55AM ; [facility] Procedures and Surgical History Surgical History Last Updated Dilation + Curettage 02/23/2019 Last Documented On 9 10:55AM ; [facility] Surgical / procedural history orthroscop ic left knee surg ~d&c ~bile duct 02/23/2019 Last Documented On 9 10:55AM ; [facility] Medical History Includes: Medical History in patient's chart Description Last Updated Last pap smear date 11/17/2018 02/23/2019 Last Documented On 9 10:55AM ; [facility] FREQUENT UTI'S ~D & C 02/23/2019 Last Documented On 9 10:55AM ; [facility] 3 02/23/2019 Last Documented On 9 10:55AM ; [facility] History of a DXA of the lateral lumbar s pine was performed 02/12/2013 02/23/2019 Last Documented On 9 10:55AM ; [facility] History of benign essential hypertension 02/23/2019 Last Documented On 9 10:55AM ; [facility] History of chronic obstructive pulmonary disease 02/23/2019 Last Documented On 9 10:55AM ; [facility] History of complete colonoscopy 2009 Last Documented On 9 10:55AM ; [facility] History of hyperlipidemia 02/23/2019 Last Documented On 9 10:55AM ; [facility] History of menopause lmp more than 5 yrs ago 02/23/2019 Last Documented On 9 10:55AM ; [facility] History of Pap smear done 11/16/201702/09 Last Documented On 9 10:55AM ; [facility] History of screening mammogram was perfo rmed 08/23/2017 02/23/2019 Last Documented On 9 10:55AM ; [facility] LMP: 2003 02/23/2019 Last Documented On 9 10:55AM ; [facility] No recent change in medical history 02/09 Last Documented On 9 10:55AM ; [facility] Para 3 02/23/2019 Last Documented On 9 10:55AM ; [facility] Result: normal 02/23/2019 Last Documented On 9 10:55AM ; [facility] Result: normal 02/23/2019 Last Documented On 9 10:55AM ; [facility] Sexually active 02/23/2019 Last Documented On 9 10:55AM ; [facility] Family History Includes: Family History in patient's chart Description Last Updated Family history unchanged 11/17/2018 Last Documented On 9 2:42PM ; [facility] Maternal history of hypertension mother 11/17/2018 Last Documented On 9 2:42PM ; [facility] Paternal grandmother's histo ry of family history of heart disease pgm-swollen heart 11/17/2018 Last Documented On 9 2:42PM ; [facility] Sororal history of diabetes mellitus sis ter. Mother is borderline 11/17/2018 Last Documented On 9 2:42PM ; [facility] Spouse name: Shayne 01/15/2013 Last Documented On 3 1:17PM ; [facility] Family history of heart disease pgm-swol lindsay heart 01/15/2013 Last Documented On 3 1:17PM ; [facility] Family history of hypertension mother Last Documented On 3 1:17PM ; [facility] Family history of diabetes mellitus sist er. Mother is borderline 12/09/2011 Last Documented On 2 10:36AM ; [facility] Family medical history of high blood pre ssure 06/09/2009 Last Documented On 0 12:27PM ; [facility] Review of Systems Review of Systems [...] Active Last Documented On 9 2:23PM ; [facility] Codeine Allergy 06/09/2009 Active Last Documented On 9 2:23PM ; [facility] Clinical Notes Includes: Signed Clinical Notes starting from 04/30/2022 No Clinical Notes Recorded
--- OUTSIDE RECORDS SUMMARY | 2024-08-01 20:51 | XMS_ITS | Encounter Summary ---
Author Organization [facility] Address [address] [place] [address] Care Team Providers Care Cat Scan Tech Name Role Phone Laz Rodríguez MD Primary Care Provider Jn Mcdonald MD Primary Care Provider [phone] Sydney Tompkins SENIOR MARKETING MANAGER Primary Care Provider [phone] Sydney Tompkins NP Primary Care Provider [phone] Laz Rodríguez MD Unavailable [phone] Jn Mcdonald MD Unavailable [phone] Sydney Tompkins NP Unavailable [phone] Sinita Santoyo SENIOR MARKETING MANAGER Unavailable [phone] Marlon Cronin MD Unavailable [phone] Davey Myles SENIOR MARKETING MANAGER Unavailable [phone] Charlie Mtz MD Primary Care Provider [phone] Denita Jones RN Unavailable [phone] Encounter Details Date Type Department Care Team (Late st Contact Info) Description 02/06/2013 Orders Only [facility] Health Information Management [address] [place] [address] Scanning, Provider Social History Tobacco Use Types Packs/Day Years Used Date Smoking Tobacco: Never Assessed Alcohol Use Standard Drinks/Week Comments No 0 (1 standard drink = 0.6 oz pur e alcohol) Comments Unknown Sex and Gender Information Value Date Recorded Sex Assigned at Not on file Legal Sex Female 3:09 PM PROGRAM/MUSIC DIRECTOR Gender Identity Not on file Sexual Orientation [...] COVID: Suspected 02/22/2020 02/22/2020 02/23/2020 5:41 AM PROGRAM/MUSIC DIRECTOR Respiratory Infection (BRITTNY), contact + droplet Comment:Automatically added due to negative COVID-19 result. 02/23/2020 02/23/2020 03/08/2020 3:0 7 AM PROGRAM/MUSIC DIRECTOR COVID: Suspected 04/28/2020 04/28/2020 04/28/2020 11:48 PM PROGRAM/MUSIC DIRECTOR Respiratory Infection (BRITTNY), contact + droplet Comment:Automatically added due to negative COVID-19 result. 04/28/2020 04/28/2020 05/12/2020 3:0 7 AM PROGRAM/MUSIC DIRECTOR Exposure, COVID-19 Comment:Added automatically based on COVID19 lab answers indicating exposure risk 03/10/2021 03/10/2021 03/25/2021 3:[address] COVID: Suspected 03/10/2021 03/10/2021 03/10/2021 4:53 PM PROGRAM/MUSIC DIRECTOR COVID: Suspected 03/26/2021 03/26/2021 03/26/2021 10:27 PM PROGRAM/MUSIC DIRECTOR COVID: Suspected 10/27/2021 10/27/2021 10/27/2021 11:28 AM CDT COVID19 10/27/2021 10/27/2021 11/06/2021 3:05 AM CDT COVID: Recovered Comment:Added based on recent COVID infection. 11/06/2021 12/03/2021 03/06/2022 3:[address] COVID: Suspected 04/30/2022 04/30/2022 04/30/2022 2:24 PM PROGRAM/MUSIC DIRECTOR COVID: Suspected 03/08/2023 03/08/2023 03/08/2023 11:30 AM PROGRAM/MUSIC DIRECTOR COVID: Suspected 03/12/2023 03/13/2023 03/13/2023 12:59 AM PROGRAM/MUSIC DIRECTOR COVID: Suspected 08/01/2024 08/01/2024 08/01/2024 10:03 AM CDT documented as of this encounter Care Teams Cat Scan Tech Relationship Specialty Start Date End Date Laz Rodríguez MD [address] [place] [address] PCP - General 10/15/10 10/21/16 Jn Mcdonald MD [address] [place] [address] PCP - General 10/22/16 06/20/18 Sydney Tompkins NP [address] [place] [address] PCP - General Family Medicine 06/21/18 07/10/18 Sydney Tompkins NP [address] [place] [address] PCP - General Family Medicine 07/11/18 05/27/21 Charlie Mtz MD [address] [place] [address] PCP - General Family Medicine 05/28/21 Laz Rodríguez MD [address] [place] [address] 10/22/16 11/21/19 Jn Mcdonald MD [address] [facility] [address] [place] [address] 06/21/18 07/10/18 Sydney Tompkins NP [address] [facility] [address] [place] [address] Family Medicine 07/11/18 07/12/18 Sintia Santoyo NP [address] [facility] [address] [place] [address] Nurse Practitioner Obstetrics and Gynecology 07/13/18 Marlon Cronin MD [address] [facility] [address] [place] [address] Consulting Physician Gastroenterology 07/13/18 10/15/20 Davey Myles NP [address] [facility] [address] [place] [address] Nurse Practitioner Family Practice 10/16/20 Denita Jones RN [address] [place] [address] Numerical Control Operator 03/17/23 04/19/23 documented as of this encounter
--- OUTSIDE RECORDS SUMMARY | 2024-08-01 20:51 | XMS_ITS | Encounter Summary ---
Author Organization [facility] Healthcare Address [address] [place] [address] Care Team Providers Care Contact Acid Plant Operator Name Role Phone Sintia Santoyo GRADUATE TEACHING ASSOCIATE Unavailable Davey Myles GRADUATE TEACHING ASSOCIATE Unavailable [phone] Charlie Mtz MD Primary Care Provider [phone] Reason for Visit * Reason Comments Shortness of Breath Encounter Details Date Type Department Care Team (Latest Contact Info) Description 08/01/2024 9:10 AM CDT - 08/01/2024 7:50 PM CDT Hospital Encounter [facility] Emergency Department [address] [id number] Erin Irizarry MD [address] [place] [address] [place] [address] Mali Acharya MD [address] [place], [place] [id number] Other acute pulmonary embolism without acute cor pulmonale (HCC) (Primary Dx) Discharge Disposition: Discharge to a critical access hospital Social History Tobacco Use Types Packs/Day Years Used Date Smoking Tobacco: Former Cigarettes 0.8 28 0 06/25/1993 - 06/25/2021 Smokeless Tobacco: Former Quit: 06/25/2021 Alcohol Use Standard Drinks/Week Comments No 0 (1 standard drink = 0.6 oz pur e alcohol) [facility] Utilities Answer Date Recorded In the past 12 months has [employer], gas, oil, or water [employer] threatened to shut off services in your [...] often do you attend chur ch or confucianism services? More than 4 times per year 03/18/2023 Do you belong to any clubs o r organizations such as islam groups, unions, fraternal or athletic groups, or [...] place to sleep or slept in a mcfp (including now)? 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 Gender Identity Not on file Sexual Orientation Not on file Occupation Industry Job Start Date Job End Date RETIRED Not on file Not on file Not on file documented as of this encounter Last Filed Vital Signs Vital Sign Reading Time Taken Comments Blood Pressure 100/46 08/01/2024 6:30 PM CDT Pulse 61 08/01/2024 6:30 PM CDT Temperature 37.2 C (98.9 F) 08/01/2024 9:07 AM CDT Respiratory Rate 14 08/01/2024 6:30 PM CDT Oxygen Saturation 94% 08/01/2024 6:30 PM CDT Inhaled Oxygen Concentration - - Weight 93.4 kg (206 lb) 08/01/2024 9:07 AM CDT Height - - Body Mass Index 38.95 07/17/2024 12:54 PM CDT documented in this encounter Medications at Time of Discharge albuterol HFA (Ventolin HFA) 90 mcg/actuation inhalerIndicatio ns:Centrilobular emphysema (HCC) Inhale 2 puffs every 4 (four) hours as needed for wheezing 1 each 2 12/19/2023 Bystolic 20 mg tablet Take 1 tablet (20 mg total) by mouth daily 90 tablet 3 01/23/2024 diazePAM (VALIUM) 2 mg tablet Take 1 tablet (2 mg total) by mouth every 6 (six) hours as needed for anxiety 15 tablet 06/09/2022 fluticasone propionate (FLONASE) 50 mcg/actuation nasal sprayIndications :Seasonal allergies Administer 2 sprays into each nostril daily as needed for allergies 16 g 3 12/19/2023 5 meloxicam (MOBIC) 7.5 mg tablet Take 1 tablet (7.5 mg total) by mouth daily 90 tablet 04/20/2023 olmesartan-amLOD IPin-hcthiazid 40-10-25 mg tablet Take 1 tablet by mouth daily 90 tablet 3 01/23/2024 5 omeprazole (PriLOSEC) 20 mg capsule TAKE ONE CAPSULE BY MOUTH EVERY DAY NEEDED 90 capsule 1 06/21/2024 pravastatin (PRAVACHOL) 40 mg tablet Take 1 tablet (40 mg total) by mouth nightly 90 tablet 05/28/2024 sertraline (ZOLOFT) 50 mg tablet Take 2 tablets (100mg total) by mouth every day 180 tablet 2 06/28/2024 tiZANidine (ZANAFLEX) 4 mg tablet Take 1 tablet (4 mg total) by mouth every 6 (six) hours as needed for muscle spasms 30 tablet 3 03/06/2024 Tradjenta 5 mg tablet Take 1 tablet (5 mg total) by mouth daily 90 tablet 3 01/23/2024 5 umeclidinium-buck anteroL (Anoro Ellipta) 62.5-25 mcg/actuation blister with device INHALE 1 PUFF BY MOUTH EVERY DAY - (DISCARD 6 WEEKS AFTER REMOVAL FROM FOIL TRAY OR WHEN COUNTER READS ZERO, WHICHEVER COMES FIRST) 3 each 05/29/2024 documented as of this encounter Discharge Disposition Disposition Code Departure Means Destination Comment s Discharge to a critical access [facility] Stable at time of transport, NAD documented in this encounter Progress Notes * Doug Del Cid, [facility] - 08/01/2024 12:46 PM CDT Pharmacokinetic Consult - Vancomycin Brittanie Bella is a 69 y.o. female patient admitted to [facility] ED[facility]ED[facility]. Pharmacy service has been consulted for vancomycin dosing and monitoring. Indication: skin/soft tissue infection Consider a vancomycin loading dose for patients who are critically ill, have a severe infection (blood stream infection, endocarditis, meningitis, or pneumonia), or require renal replacement therapy. Vancomycin Dosing History: None available Wt Readings from Last 1 Encounters: 08/01/24 93.4 kg (206 lb) Serum creatinine: 0.59 mg/dL (L) 08/01/24 0915 Estimated creatinine clearance: 48.7 mL/min (A) Recent Labs Lab Units 08/01/24 0915 WBC K/cumm 12.30* Initiate vancomycin 1500 mg IV every 24 hours. Goal vancomycin level 10 to 20. Vancomycin trough level ordered for 08/03/24 13:00 . Creatinine monitoring has been ordered daily Pharmacy will continue to follow patient's clinical progress throughout admission. Will continue tomonitor labs and adjust doses accordingly. Thank you, Doug Del Cid [facility] Pharmacy department [phone] documented in this encounter ED Notes * Catherine Jernigan RN - 08/01/2024 9:04 AM CDT Pt arrives to ED via [facility] from home for SOB x 2 days. Pt has hx of COPD. Pt had right knee replacement 07/24. Pt presents with bruising, redness and warmth to the RLE. Per EMS pt was 78% on RA uponarrival. Pt to 99% 4L/min via NC. Pt a&o x 4. documented in this encounter Plan of Treatment Pending Results Name Type Priority Associated Diagnoses Date /Time Blood culture Blood Peripheral Microbiology STAT 08/01/2024 2:07 PM CDT Blood culture Blood Peripheral Microbiology STAT 08/01/2024 2:15 PM CDT Scheduled Orders Name Type Priority Associated Diagnoses Order Schedule Urinalysis reflex to microscopic and culture Urine Microbiology STAT STAT for 1 Occurrences starting 08/01/2024 until 08/01/2024 Adult Bronchodilator Therapy Protocol Respiratory Care Routine Until disconti nued until discontinued starting 08/01/2024 CBC without differential Lab Timed AM Draw - every three days collect with morning lab draw until discontinued starting 08/04/2024 Creatinine Lab Timed AM Draw - ever y three days collect with morning lab draw until discontinued starting 08/04/2024 Transthoracic Echo (TTE) Complete W Doppler/CF Echocardiography STAT Once for 1 Occurrences starting 08/01/2024 until 08/01/2024 Comprehensive metabolic panel Lab Routine In AM - one time only for 1 Occurrences starting 08/02/2024 until 08/02/2024 CBC with auto differential Lab Routine In AM - one time only for 1 Occurrences starting 08/02/2024 until 08/02/2024 Blood culture Blood Peripheral Microbiology STAT STAT for 1 Occurrences starting 08/01/2024 until 08/01/2024 Blood culture Blood Peripheral Microbiology STAT STAT for 1 Occurrences starting 08/01/2024 until 08/01/2024 Vancomycin level trough Lab Timed Lab orders - collect at the specified time. for 1 Occurrences starting 08/03/2024 until 08/03/2024 documented as of this encounter Goals Goal Patient Goal Type Associated Problems Recent Progress Patient-Stated? Author BH-Pain Behavioral Health Improving( 1:51 PM CDT) Lorrie Layton, LEA Note: Patient will establish a comfort-function goal and identify the pain level that will allow the patient to perform desired activities and achieve an acceptable quality of life. documented as of this encounter Procedures Procedure Name Priority Date/Time Associated Diagnosis Comments TROPONIN T HIGH-SENSITIVITY 4-HR Timed 08/01/2024 2:07 PM CDT SEPSIS LACTATE WITH REFLEX Timed 08/01/2024 2:07 PM CDT TROPONIN T HIGH-SENSITIVITY 2-HOUR Timed 08/01/2024 11:07 AM CDT PROCALCITONIN Routine 08/01/2024 11:[address] CHEST PE W CONTRAST ED 10:25 AM CDT US VEIN DUPLEX LOWER EXTREMITY RIGHT LIMITED ED 08/01/2024 10:18 AM CDT XR CHEST 1 VIEW ED 08/01/2024 9:20 AM CDT TROPONIN T HIGH-SENSITIVITY SERIES (BASELINE, 2HR, 4HR, 6HR) STAT 08/01/2024 9:15 AM CDT INFLUENZA A/B, RSV, AND COVID-19 PCR STAT 08/01/2024 9:15 AM CDT SEPSIS LACTATE WITH REFLEX STAT 08/01/2024 9:15 AM CDT EGFR STAT 08/01/2024 9:15 AM CDT DIFFERENTIAL AUTO STAT 08/01/2024 9:1 5 AM CDT PRO B-TYPE NATRIURETIC PEPTIDE STAT 08/01/2024 9:15 AM CDT CBC WITH AUTO DIFFERENTIAL STAT 08/01/2024 9:15 AM CDT APTT STAT 08/01/2024 9:15 AM CDT PROTIME-INR STAT 08/01/2024 9:15 AM CDT D-DIMER, QUANTITATIVE STAT 08/01/2024 9:15 AM CDT COMPREHENSIVE METABOLIC PANEL STAT 08/01/2024 9:15 AM CDT ECG 12-LEAD STAT 08/01/2024 9:07 AM CDT documented in this encounter Results * Sepsis Lactate w/ Reflex (08/01/2024 2:07 PM CDT) Sepsis Lactate 1.2 0.7 - 2.0 mmol/L Blood 08/01/2024 2:07 PM CDT 08/01/2024 2:12 PM CDT us Erin Irizarry MD LAB BLOOD ORDERABLES Molly l Result [facility] ([facility]) 1 [facility] [place] [address] * Troponin T high-sensitivity 4-hour (08/01/2024 2:07 PM CDT) Trop T hs 9 <=14 ng/L Comment: Interpretive Data For further hscTnT resources including the diagnostic algorithm and an aid in interpretation, copy and paste this link: https://nrl.testcatalog.org/show/hsTrop Current Interpretive Data last revised 2020. Trop T hs delta -1 ng/L [facility] Trop T hs interp Insignificant [facility] Blood 08/01/2024 2:07 PM CDT 08/01/2024 2:12 PM CDT Erin Irizarry MD LAB BLOOD ORDERABLES Molly l Result [facility] ([place]) [address] [place] [address] * Procalcitonin (08/01/2024 11:07 AM CDT) Procalcitonin 0.05 <=0.25 ng/mL Comment:Testing performed by : [facility], [facility], [place]., [address] Blood 08/01/2024 11:0 7 AM CDT 08/01/2024 3:52 PM CDT Erin Irizarry MD LAB BLOOD ORDERABLES Molly l Result [facility] ([place]) [address] [place] [address] * Troponin T high-sensitivity 2-hour (08/01/2024 11:07 [...] 7 AM CDT 08/01/2024 11:12 AM CDT us Erin Irizarry MD LAB BLOOD ORDERABLES Molly l Result [facility] ([place]) 1 [facility] [place] [address] * CT Chest PE (CTA) W Contrast [...] Riley Harrington M.D. CH: THOMAS Report ID: [id number] Reading Location: [id number] Procedure Note Riley Harrington Jr., MD - [...] Riley Harrington M.D. CH: THOMAS Report ID: [id number] Reading Location: [id number] Erin Irizarry MD IMG CT PROCEDURES [...] Riley Harrington M.D. CH: THOMAS Report ID: [id number] Reading Location: [id number] Procedure Note Riley Harrington Jr., MD - [...] Riley Harrington M.D. CH: THOMAS Report ID: [id number] Reading Location: [id number] Erin Irizarry MD [facility] US PROCEDURES Final R esult * XR [...] Jeremy Goetz M.D. INDY: INDY Report ID: [id number] Reading Location: [id number] Procedure Note Jeremy Goetz MD - 08/01/2024 EXAM DESCRIPTION: XR CHEST 1 VIEW REASON FOR STUDY: Acute shortness of breath for 2 days in a patient with history of COPD. Complaint of ecchymosis, redness, and warmth to rightlower extremity status post recent right knee replacement. TECHNIQUE: Single frontal radiographic view(s) of the chest. COMPARISON: Chest radiograph 03/13/2023; CT lung cancer dhaayhdlh02/03/2024 FINDINGS: LUNGS: No focal consolidation. No pleural effusion. No pneumothorax. Emphysematous changes. HEART/MEDIASTINUM: Stable cardiomediastinal silhouette better evaluatedon prior CT imaging. LINES/TUBES: None. BONES: No acute osseous abnormality. IMPRESSION: No radiographic evidence of acute cardiopulmonary process. THIS IS AN ELECTRONICALLY VERIFIED FINAL REPORT 08/01/2024 9:51 AM - Electronically signed by Jeremy Goetz M.D. INDY: INDY Report ID: [id number] Reading Location: [place] [address] Erin Irizarry MD IMG XR PROCEDURES Final R esult * eGFR (08/01/2024 9:15 AM CDT) eGFR [...] BLOOD ORDERABLES Molly mukherjee Result [facility] ([place]) 1 [facility] [place], [place] [id number] * (ABNORMAL) Differential, auto (08/01/2024 9:15 AM CDT) Neutrophil abs 9.79(H) 1.50 - 6.50 K/cumm Imm gran abs 0.11(H) 0.00 - 0.10 K/cumm [facility] Lymphocyte abs 1.45 0.80 - 3.30 K/cumm [facility] ([place]) Monocyte abs 0.80 0.20 - 0.80 K/cumm [facility] ([place]) Eosinophil abs 0.11 0.00 - 0.50 K/cumm [facility] ([place]) Basophil abs 0.04 0.00 - 0.10 K/cumm [facility] ([place]) Neutrophil pct 79.6 % [facility] ([place]) Comment: Interpretive Data Percent cell count reference ranges are not reported, since discordance with absolute values may lead to misinterpretation of CBC data. Current Interpretive Data was last revised on 2017. Imm gran pct 0.9 % [facility]) Comment: Interpretive Data Percent cell count reference ranges are not reported, since discordance with absolute values may lead to misinterpretation of CBC data. Current Interpretive Data was last revised on 2017. Lymphocyte pct 11.8 % [facility]) Comment: Interpretive Data Percent cell count reference ranges are not reported, since discordance with absolute values may lead to misinterpretation of CBC data. Current Interpretive Data was last revised on 2017. Monocyte pct 6.5 % [facility]) Comment: Interpretive Data Percent cell count reference ranges are not reported, since discordance with absolute values may lead to misinterpretation of CBC data. Current Interpretive Data was last revised on 2017. Eosinophil pct 0.9 % [facility]) Comment: Interpretive Data Percent cell count reference ranges are not reported, since discordance with absolute values may lead to misinterpretation of CBC data. Current Interpretive Data was last revised on 2017. Basophil pct 0.3 % [facility] ([place]) Comment: Interpretive Data Percent cell count reference ranges are not reported, since discordance with absolute values may lead to misinterpretation of CBC data. Current Interpretive Data was last revised on 2017. Blood 08/01/2024 9:15 AM CDT 08/01/2024 9:20 AM CDT Erin Irizarry MD LAB BLOOD ORDERABLES Molly l Result Performing Organization Address [facility]/ZIP Co de Phone Number [facility] ([place]) 1 [facility] [place] [address] * (ABNORMAL) D-dimer, quantitative (08/01/2024 9:15 AM [...] BLOOD ORDERABLES Molly l Result [facility] ([place]) 1 [facility] [place] [address] * (ABNORMAL) Protime-INR (08/01/2024 9:15 AM CDT) PT 15.1(H) 9.7 - 13.0 sec [facility] ([place] INR 1.39(H) 0.90 - 1.20 [facility] Comment: Interpretive data Oral anticoagulant therapeutic ranges: Venous thromboembolism prophylaxis or treatment: 2.0-3.0 CARDIOLOGY Standard range: 2.0-3.0 High-intensity range: 2.5-3.5 Refer to indication-specific guidelines for appropriate target ranges for prosthetic heart valve replacement. Current interpretive data was last revised on 2019. Blood 08/01/2024 9:15 AM CDT 08/01/2024 9:20 AM CDT Erin Irizarry MD LAB BLOOD ORDERABLES Molly l Result Performing Organization Address [facility] Co de Phone Number [facility] [address] [place] [address] [place] [address] * (ABNORMAL) aPTT (08/01/2024 9:15 AM CDT) aPTT 24(L) 28 - 38 sec [facility] Comment: Interpretive Data Heparin therapeutic range: 66.0 - 100.0 seconds. Range based on correlation with therapeutic heparin activity range of 0.3 - 0.7 Units/mL. Current interpretive data was last revised on 2023. Blood 08/01/2024 9:15 AM CDT 08/01/2024 9:20 AM CDT Erin Irizarry MD LAB BLOOD ORDERABLES Molly l Result Performing Organization Address City/[facility]/ZIP Co de Phone Number [facility] ([place]) 1 [facility] [place] [address] * Troponin T high-sensitivity series (baseline, 2hr, [...] MD LAB BLOOD ORDERABLES Molly l Result [facility] [address] [place] [address] * (ABNORMAL) Sepsis Lactate w/ Reflex (08/01/2024 9:15 AM CDT) [facility] Sepsis Lactate 2.4(H) 0.7 - 2.0 mmol/L Blood 08/01/2024 9:15 AM CDT 08/01/2024 9:20 AM CDT Erin Irizarry MD LAB BLOOD ORDERABLES Molly l Result Performing Organization Address City/[facility] Co de Phone Number [facility] [address] [place] [address] * Influenza A/B, RSV, and COVID-19 PCR Nasopharyngeal (08/01/2024 9:15 AM CDT) [facility] COVID-19 RNA Negative Negative Influenza A RNA Negative Negative [facility] ([place]) Influenza B RNA Negative Negative [facility] ([place]) RSV RNA Negative Negative [facility] Comment: Interpretive data: Testing performed by [facility]. This test is performed using the trivago Xpert Xpress CoV-2/Flu/RSV plus assay. This is a multiplex, real- time reverse transcriptase PCR assay intended for the qualitative detection of nucleic acid from SARS-CoV-2, influenza A, influenza B, and respiratory syncytial virus. This assay has been cleared by the [place] Food and Drug administration. The performance characteristics have been verified by the [facility]. Results must be considered in the clinical context, and a negative result does not rule out infection. Interpretive Data last revised 2023 Nasopharyngeal 08/01/2024 9: 15 AM CDT 08/01/2024 9:20 AM CDT Narrative [facility] ([place]) - 08/01/2024 10:02 AM CDT Is the Patient experiencing symptoms consistent with COVID?->Yes us Erin Irizarry MD LAB MICROBIOLOGY - GENERA L ORDERABLES Final Result [facility] ([place] 1 [facility] [place] [address] * (ABNORMAL) Comprehensive metabolic panel (08/01/2024 9:15 AM CDT) Sodium 140 135 - 145 mmol/L Potassium, pl 3.1(L) 3.3 - 4.9 mmol/L [facility] Chloride 99 97 - 110 mmol/L [facility] ([place] CO2 26 22 - 32 mmol/L [facility] ([place]) Anion gap 15 2 - 15 mmol/L [facility] ([facility]) BUN 18 6 - 25 mg/dL [facility]) Creatinine 0.59(L) 0.60 - 1.10 mg/dL [facility] Comment:Icteric sample, test results may be affected. Glucose 155 70 - 199 mg/dL [facility] Comment: Interpretive Data Fasting glucose >/= 126 [...] MD LAB BLOOD ORDERABLES Molly l Result [facility] ([place]) 1 [facility] [place] [address] * (ABNORMAL) CBC with auto differential (08/01/2024 [...] RDW SD 53.5(H) 35.7 - 48.1 fL [facility] ([place]) NRBC abs 0.04(H) 0.00 - 0.01 K/cumm [facility] ([place]) Blood 08/01/2024 9:15 AM CDT 08/01/2024 9:20 AM CDT Erin Irizarry MD LAB BLOOD ORDERABLES Molly yaz Result [facility] ([place]) 1 [facility] [place] [address] * (ABNORMAL) Pro B-type natriuretic peptide (08/01/2024 [...] ORDERABLES Molly l Result Performing Organization Address City/[facility]/ZIP Co de Phone Number [facility] [place] [address] [place] [address] Department [place] [address] * ECG 12 lead (08/01/2024 9:07 AM CDT) 08/01/2024 9:07 AM CDT Narrative [facility] - 08/01/2024 12:18 PM CDT Vent Rate: 72 bpm RR Interval: 828 msec PA Interval: 143 msec QRS Duration: 102 msec QT Interval: 346 msec QTC Interval: 370 msec P-R-T [place]: 80 - 80 - -31 degrees IMPRESSION: SINUS RHYTHM NONSPECIFIC ST \T\ T-WAVE ABNORMALITY ABNORMAL ECG NO CHANGE FROM PREVIOUS TRACING NOTED Electronically Signed By: Matthew Hunt MD Erin Irizarry MD ECG ORDERABLES Final Res ult Performing Organization Address [facility] Co de Phone Number [employer] [facility] documented in this encounter Visit Diagnoses Diagnosis Other acute pulmonary embolism without acute cor pulmonale (HCC)- Primary Other acute pulmonary embolism without acute cor pulmonale (HCC) documented in this encounter Admitting Diagnoses Diagnosis Other acute pulmonary embolism without acute cor pulmonale (HCC) documented in this encounter Administered Medications Active Administered Medications - up to 3 most recent administrations Medication Order MAR Action Action Date Dose Rate Site cefepime (MAXIPIME) 2,000 mg in sodium chloride 0.9% 100 mL IVPB 2,000 mg, intravenous, at 220 mL/hr, Administer over 30 Minutes, Every 12 hours scheduled, First dose on Tue08/01/24 at 1239, Mini-Bag Plus bag, Indications: Skin/Soft Tissue InfectionIndications: Skin/Soft Tissue Infection New Bag 08/01/2024 1:35 PM CDT 2,000 mg 220 mL/hr enoxaparin (LOVENOX) syringe 100 mg 100 mg (rounded from 93.4 mg = 1 mg/kg 93.4 kg), subcutaneous, Every 12 hours scheduled, First dose on Tue08/01/24 at 1057, Indications: Venous ThrombosisIndications :Venous Thrombosis Given 08/01/2024 11:07 AM CDT 100 mg Right Lower Abdomen vancomycin 1500 mg/250 mL in sodium chloride 0.9% (premix) 1,500 mg 1,500 mg (rounded from 1,401 mg = 15 mg/kg 93.4 kg), intravenous, at 167 mL/hr, Administer over 90 Minutes, Every 24 hours scheduled, First dose on Tue08/01/24 at 1400, Indications: Skin/Soft Tissue InfectionIndications: Skin/Soft Tissue Infection New Bag 08/01/2024 2:24 PM CDT 1,500 mg 167 mL/hr Inactive Administered Medications - up to 3 most recent administrations Medication Order MAR Action Action Date Dose Rate Site ioversoL (OPTIRAY 350) syringe 100 mL 100 mL, intravenous, Once in imaging, contrast, Starting on Tue08/01/24 at 1013, For 1 dose Contrast Given 08/01/2024 10:15 AM CDT 100 mL ipratropium-albuteroL (DUO-NEB) 0.5-2.5 mg/3 mL nebulizer solution 3 mL 3 mL, nebulization, Once (sales correspondence clerk), On Tue08/01/24 at 0934, For 1 dose Given 08/01/2024 10:47 AM CDT 3 mL methylPREDNISolone sodium succinate (SOLU-medrol) preservative free injection 125 mg 125 mg, intravenous, Administer over 3 Minutes, Once, On Tue08/01/24 at 0934, For 1 dose Given 08/01/2024 11:06 AM CDT 125 mg oxyCODONE-acetaminophen (PERCOCET) 5-325 mg per tablet 1 tablet 1 tablet, oral, Once, On Tue08/01/24 at 1627, For 1 dose, Indications: PainIndications:Pain Given 08/01/2024 5:25 PM CDT 1 tablet sertraline (ZOLOFT) tablet 100 mg 100 mg, oral, Once, On Tue08/01/24 at 1627, For 1 dose Given 08/01/2024 5:51 PM CDT 100 mg documented in this encounter Active and Recently Administered Medications Times are shown in CDT. Scheduled Medication Order 07/30/2024 07/31/2024 08/01/2024 cefepime (MAXIPIME) 2,000 mg in sodium chloride 0.9% 100 mL IVPB 2,000 mg, intravenous, at 220 mL/hr, Administer over 30 Minutes, Every 12 hours scheduled, First dose on Tue08/01/24 at 1239, Mini-Bag Plus bag, Indications: Skin/Soft Tissue Infection 1335 (New Bag - Prov ider: Catherine Jernigan RN)1415 (Stopped - Provider: Catherine Jernigan RN)2100 (Due) enoxaparin (LOVENOX) syringe 100 mg 100 mg (rounded from 93.4 mg = 1 mg/kg 93.4 kg), subcutaneous, Every 12 hours scheduled, First dose on Tue08/01/24 at 1057, Indications: Venous Thrombosis 1107 (Given - Provid er: Catherine Jernigan RN)2100 (Due) ipratropium-albuteroL (DUO-NEB) 0.5-2.5 mg/3 mL nebulizer solution 3 mL (COMPLETED) 3 mL, nebulization, Once (sales correspondence clerk), On Tue08/01/24 at 0934, For 1 dose 1047 (Given - Provid er: Nelly Christiansen, EXPLOSIVE MAN) methylPREDNISolone sodium succinate (SOLU-medrol) preservative free injection 125 mg (COMPLETED) 125 mg, intravenous, Administer over 3 Minutes, Once, On Tue08/01/24 at 0934, For 1 dose 1106 (Given - Provid er: Catherine Jernigan RN) oxyCODONE-acetaminophen (PERCOCET) 5-325 mg per tablet 1 tablet (COMPLETED) 1 tablet, oral, Once, On Tue08/01/24 at 1627, For 1 dose, Indications: Pain 1725 (Given - Provid er: Dru Kennedy RN) sertraline (ZOLOFT) tablet 100 mg (COMPLETED) 100 mg, oral, Once, On Tue08/01/24 at 1627, For 1 dose 1751 (Given - Provid er: Catherine Jernigan RN) vancomycin 1500 mg/250 mL in sodium chloride 0.9% (premix) 1,500 mg 1,500 mg (rounded from 1,401 mg = 15 mg/kg 93.4 kg), intravenous, at 167 mL/hr, Administer over 90 Minutes, Every 24 hours scheduled, First dose on Tue08/01/24 at 1400, Indications: Skin/Soft Tissue Infection 1424 (New Bag - Prov ider: Catherine Jernigan, RN)1600 (Stopped - Provider: Catherine Jernigan RN) PRN Medication Order 07/30/2024 07/31/2024 08/01/2024 ioversoL (OPTIRAY 350) syringe 100 mL (COMPLETED) 100 mL, intravenous, Once in imaging, contrast, Starting on Tue08/01/24 at 1013, For 1 dose 1015 (Contrast Given - Provider: Rosario Mckeon, RT) documented in this encounter Orders Medications Ordered That Krish ht Not Have Been Administered Count Last Ordered Date First Ordered Date vancomycin 1500 mg/250 mL in sodium chloride 0.9% (premix) 1,500 mg 1 08/01/2024 Diet Count Last Ordered Date First Orde red Date ADULT DIET 1 08/01/2024 Nursing Count Last Ordered Date First Orde red Date ACTIVITY 1 08/01/2024 CONTINUOUS PULSE OXIMETRY 1 08/01/2024 MISCELLANEOUS NURSING CARE ORDER (SPECIFY) 1 08/01/2024 NOTIFY PROVIDER (SPECIFY) 1 08/01/2024 TELEMETRY MONITORING 1 08/01/2024 VITAL SIGNS 1 08/01/2024 WEIGH PATIENT 1 08/01/2024 Code Status Count Last Ordered Date First Orde red Date FULL CODE 1 08/01/2024 Consult Count Last Ordered Date First Orde red Date IP CONSULT TO PULMONOLOGY 1 08/01/2024 Precaution Count Last Ordered Date First Orde red Date FALL PRECAUTIONS 1 08/01/2024 CORE MEASURES Count Last Ordered Date First Ord ered Date REASON FOR NO VTE PROPHYLAXIS AT ADMISSION 1 08/01/2024 documented in this encounter Additional Health Concerns Infection Onset Date Last Indicated Resolved Time COVID: Suspected 08/01/2024 08/01/2024 08/01/2024 10:03 AM CDT documented as of this encounter Care Teams Contact Acid Plant Operator Relationship Specialty Start Date [place] [address] PCP - General Family Medicine 05/28/21 Sintia Santoyo NP Nurse Practitioner Obstetrics and Gynecology 07/13/18 Davey Myles NP Nurse Practitioner Family Practice 10/16/20 documented as of this encounter
[2024-08-01 20:52] VITALS: BMI 39.5
--- NOTE | 2024-08-01 20:53 | ADMGEN ---
This patient, Brittanie Bella, was admitted to Medical Room 342-01. Patient/family oriented to hospital policies and general routines including ID bracelet, bed and alarms, visiting hours, pain management, procedures, bathroom and other care routines, personal items, smoking policy, room service/diet, and visiting hours. Information on how to activate the Rapid Response Team has been discussed. Patient/Family are encouraged to report perceived risks to care and to ask questions if they do not understand what they are told or what they should do.
[2024-08-01 20:54] VITALS: BP 104/44; PULSE 60; RESP 16; TEMP 36.6; O2SAT 96
[2024-08-01 21:00] VITALS: PULSE 60
--- OUTSIDE RECORDS SUMMARY | 2024-08-01 21:19 | XMS_ITS | Clinical Summary ---
Author Organization [facility] Address [address] [place] [address] Phone Care Team Providers Care Project Finance Analyst Name Role Phone Unavailable Unavailable Unavailable Reason for Visit and Chief Complaint [Patient Encounter] Problems Includes: Problems addressed during this encounter and other active Problems All Visits Onset Date Resolved Date Provider Condition S tatus Chronic Obstructive Pulmonary Disease 11/17/2018 ROWAN INGRAM NP-BC Active Last Documented On 9 2:25PM ; [facility] Previous Colposcopy 01/15/2013 ROWAN INGRAM COFFEE SAMPLER-BC Active Last Documented On 3 12:53PM ; [facility] Note: - FAIZAN! HYPERLIPIDEMIA NEC/NOS 01/20/2012 CE BIRCH MD Active Last Documented On 2 3:01PM ; [facility] HYPERTENSION NOS 12/09/2011 CE BIRCH MD Ac tive Last Documented On 2 10:05AM ; [facility] Plan of Treatment No Plan of Treatment Recorded Assessments Includes: Assessments from this encounter No Assessments Recorded Medical Equipment - Implanted Devices Includes: Current Devices No Medical Equipment Recorded Medications Includes: Medications discussed during this encounter and other current Medications Current Medications (continue as prescribed) Co Q10 100MG Oral Capsule 11/17/2018 Provider: Diagnosis: Last Documented On 9 2:24PM By DESHAWN DOYLE ; [facility] Tribenzor 40-10-25MG Oral Tablet 11/17/2018 Provider : Diagnosis: Last Documented On 9 2:24PM By DESHAWN DOYLE ; [facility] Omeprazole 20MG Oral Tablet Delayed Release 2017 Provider: Diagnosis: Last Documented On 8 12:41PM By DONALDO DOYLE ; [facility] Bystolic 20MG Oral Tablet 11/16/2017 Provider: Diagnosis: Last Documented On 8 12:41PM By DONALDO DOYLE ; [facility] Fetzima 80MG Oral Capsule Extended Release 24 Hour 11/2017 Provider: Diagnosis: Last Documented On 8 12:42PM By DONALDO DOYLE ; [facility] Biotin 5000MCG Oral Capsule 11/16/2017 Provider: Diagnosis: Last Documented On 8 12:42PM By DONALDO DOYLE ; [facility] Fish Oil 1000MG Oral Capsule 11/16/2017 Provider : Diagnosis: Last Documented On 8 12:42PM By DONALDO DOYLE ; [facility] Hohudmonoe-Nzwpwqdvtb-BRNA 40-10-25MG Oral Tablet 11/2017 Provider: Diagnosis: Last Documented On 8 12:43PM By DONALDO DOYLE ; [facility] Welchol 625 MG OR TABS 01/15/2013 Provider: Diagnosis: Last Documented On 01/15/2013 1:05PM By DONALDO DOYLE ; [facility] Bystolic 5 MG OR TABS 12/09/2011 Provider: Diagnosis: Last Documented On 12/09/2011 10:03AM By AV CORCORAN ; [facility] Spiriva HandiHaler 18 MCG IN CAPS 12/09/2011 Provide r: Diagnosis: Last Documented On 12/09/2011 10:04AM By AV CORCORAN ; [facility] Medications Administered Includes: Administered Medications from [...] 9 2:23PM ; [facility] Encounters Encounter Provider Location Date Check-In Time Check- Out Time Diagnosis [Patient Encounter] ROWAN INGRAM [facility] EDGER TAILER 8 1:43PM 11:59PM Clinical Notes Includes: Clinical Notes from this encounter No Clinical Notes Recorded
--- OUTSIDE RECORDS SUMMARY | 2024-08-01 21:20 | XMS_ITS | Clinical Summary ---
Author Organization [facility] Address [address] [place] [address] Phone Care Team Providers Care Foreclosure Specialist Name Role Phone Unavailable Unavailable Unavailable Reason for Visit and Chief Complaint DEXASCAN Problems Includes: Problems addressed during this encounter and other active Problems All Visits Onset Date Resolved Date Provider Condition S tatus Chronic Obstructive Pulmonary Disease 11/17/2018 ROWAN INGRAM NP-BC Active Last Documented On 9 2:25PM ; [facility] Previous Colposcopy 01/15/2013 ROWAN INGRAM COTTON FARMER-BC Active Last Documented On 3 12:53PM ; [facility] Note: - FAIZAN! HYPERLIPIDEMIA NEC/NOS 01/20/2012 CE BIRCH MD Active Last Documented On 2 3:01PM ; [facility] HYPERTENSION NOS 12/09/2011 CE BIRCH MD Ac tive Last Documented On 2 10:05AM ; [facility] Plan of Treatment No Plan [...] On 9 2:24PM By DESHAWN DOYLE ; [facility] Tribenzor 40-10-25MG Oral Tablet 11/17/2018 Provider : Diagnosis: Last Documented On 9 2:24PM By DESHAWN DOYLE ; [facility] Omeprazole 20MG Oral Tablet Delayed Release 2017 Provider: Diagnosis: Last Documented On 8 12:41PM By DONALDO DOYLE ; [facility] Bystolic 20MG Oral Tablet 11/16/2017 Provider: Diagnosis: Last Documented On 8 12:41PM By DONALDO DOYLE ; [facility] Fetzima 80MG Oral Capsule Extended Release 24 Hour 11/2017 Provider: Diagnosis: Last Documented On 8 12:42PM By DONALDO DOYLE ; [facility] Biotin 5000MCG Oral Capsule 11/16/2017 Provider: Diagnosis: Last Documented On 8 12:42PM By DONALDO DOYLE ; [facility] Fish Oil 1000MG Oral Capsule 11/16/2017 Provider : Diagnosis: Last Documented On 8 12:42PM By DONALDO DOYLE ; [facility] Yrnbfiqisa-Okfukiwuae-IYSR 40-10-25MG Oral Tablet 11/2017 Provider: Diagnosis: Last Documented On 8 12:43PM By DONALDO DOYLE ; [facility] Welchol 625 MG OR TABS 01/15/2013 Provider: Diagnosis: Last Documented On 01/15/2013 1:05PM By DONALDO DOYLE ; [facility] Bystolic 5 MG OR TABS 12/09/2011 Provider: Diagnosis: Last Documented On 12/09/2011 10:03AM By AV CORCORAN ; [facility] Spiriva HandiHaler 18 MCG IN CAPS 12/09/2011 Provide r: Diagnosis: Last Documented On 12/09/2011 10:04AM By AV CORCORAN ; [facility] Medications Administered Includes: Administered Medications [...] Active Last Documented On 9 2:23PM ; [facility] Codeine Allergy 06/09/2009 Active Last Documented On 9 2:23PM ; [facility] Encounters Encounter Provider Location Date Check-In Time Check-Out Time Diagnosis STEPHANIE INGRAM [facility] CRIMINAL INVESTIGATOR CUSTOMS 11/30/2018 9:58AM 10:37AM Clinical Notes Includes: Clinical Notes from this encounter No Clinical Notes Recorded
--- OUTSIDE RECORDS SUMMARY | 2024-08-01 21:20 | XMS_ITS ---
Care Plan - [facility] Created on: August 01, 2024 PREM GAMBINO : 1955 Sex: Female Author Organization [facility] Address [address] [place] [address] Phone Care Team Providers Care Contract Sheltered Workshop Supervisor Name Role Phone Unavailable Unavailable Unavailable
--- OUTSIDE RECORDS SUMMARY | 2024-08-01 21:20 | XMS_ITS | Encounter Summary ---
Author Organization [facility] Healthcare Address [address] [place] [address] Care Team Providers Care Teller Vault Name Role Phone Sintia Santoyo EXPLOSIVE TECHNICIAN Unavailable [phone] Davey Myles EXPLOSIVE TECHNICIAN Unavailable [phone] Charlie Mtz MD Primary Care Provider [phone] Reason for Visit * Reason Onset Date Comments Medical Question/Miscellaneous 07/09/2024 Encounter Details Date Type Department Care Team (Late st Contact Info) Description 07/09/2024 Telephone [facility] [address] [place] [address] Charlie Mtz MD [address] [place] [id number] Medical Question/Miscellaneous Social History Tobacco Use Types Packs/Day Years Used Date Smoking Tobacco: Former Cigarettes 0.8 28 0 06/25/1993 - 06/25/2021 Smokeless Tobacco: Former Quit: 06/25/2021 Alcohol Use Standard Drinks/Week Comments No 0 (1 standard drink = 0.6 oz pur e alcohol) [facility] Utilities Answer Date Recorded In the past 12 months has [employer], gas, oil, or water [email or web address] threatened to shut off services in your [...] often do you attend chur ch or religion services? More than 4 times per year [...] place to sleep or slept in a half-way (including now)? No 03/18/2023 Personal Safety Answer [...] on file Legal Sex Female 3:09 PM POSTMASTER Gender Identity Not on file Sexual Orientation Not on file Occupation Industry Job Start Date Job End Date RETIRED Not on file Not on file Not on file documented as of this encounter Miscellaneous Notes * Telephone Encounter - Edel Harrington MA - 07/09/2024 3:06 PM CDT Access Center called back line with call from [facility]. Requesting EKG tracing from April faxed to them at [phone]. Sent as requested. * Telephone Encounter - Stephany Irwin - 07/09/2024 3:04 PM CDT Medical Question/Miscellaneous Caller???s Concern: Tasia calling for EKG to be sent over to [facility] for Patient's appointment tomorrow 07/10/2024 at 10 AM. HEAD OF SCIENCE transferred to the practice. Does message need [...] documented as of this encounter Care Teams Teller Vault Relationship Specialty Start Date End Date Charlie Mtz MD [address] [place] [address] PCP - General Family Medicine 05/28/21 Sintia Santoyo NP Nurse Practitioner Obstetrics and Gynecology 07/13/18 Davey Myles NP Nurse Practitioner Family Practice 10/16/20 documented as of this encounter
--- OUTSIDE RECORDS SUMMARY | 2024-08-01 21:20 | XMS_ITS | Clinical Summary ---
Author Organization [facility] Address [address] [place] [address] Phone Care Team Providers Care Cracking Unit Operator Name Role Phone Unavailable Unavailable Unavailable Reason for Visit and Chief Complaint gynecologic annual exam - The Chief Complaint is: Annual Problems Includes: Problems addressed during this encounter and other active Problems Current Visit Onset Date Resolved Date Provider Conditio n Status Chronic Obstructive Pulmonary Disease 11/17/2018 ROWAN INGRAM NP-BC Active Last Documented On 9 2:25PM ; [facility] Past Visits Onset Date Resolved Date Provider Condition Status Previous Colposcopy 01/15/2013 ROWAN INGRAM NP-BC Active Last Documented On 01/15/2013 12:53PM ; [facility] Note: - FAIZAN! HYPERLIPIDEMIA NEC/NOS 01/20/2012 CE BIRCH MD Active Last Documented On 2 3:01PM ; [facility] HYPERTENSION NOS 12/09/2011 CE BIRCH MD Ac tive Last Documented On 2 10:05AM ; [facility] Plan of Treatment - Clinical summary provided to patient - Last Documented On 11/17/2018 2:42PM ; [facility] Instructions to patient Instructions for patient : B reast Self Exam discussed Last Documented On 9 2:01PM ; [facility] Lose weight Last Documented On 9 2:02PM ; [facility] Colonoscopy Handout given to patient Last Documented On 9 2:02PM ; [facility] Education and Decision Aids were provided during visit for: Patient Education: Daily rashi cium and vitamin D Last Documented On 9 2:01PM ; [facility] Patient Education: weight be aring exercise Last Documented On 9 2:01PM ; [facility] Smoking cessation advised Last Documented On 9 2:02PM ; [facility] Assessments Includes: Assessments from this encounter Findings - NORMAL FEMALE EXAM - Last Documented On 11/17/2018 2:42PM ; [facility] - Screening Malig. Neoplasm Rectum - Last Documented On 11/17/2018 2:42PM ; [facility] Instructions Includes: Instructions from this encounter Instructions to patient Instructions for patient : B reast Self Exam discussed Last Documented On 9 2:01PM ; [facility] Lose weight Last Documented On 9 2:02PM ; [facility] Colonoscopy Handout given to patient Last Documented On 9 2:02PM ; [facility] Education and Decision Aids were provided during visit for: Patient Education: Daily rashi cium and vitamin D Last Documented On 9 2:01PM ; [facility] Patient Education: weight be aring exercise Last Documented On 9 2:01PM ; [facility] Smoking cessation advised Last Documented On 9 2:02PM ; [facility] Medical Equipment - Implanted Devices Includes: Current Devices No Medical Equipment Recorded Medications Includes: Medications discussed during this encounter and other current Medications Discontinued / Stopped on this date on 11/16/2017 Ergocalciferol [id number] Oral Capsule Pro vider: Diagnosis: Last Documented On 9 2:24PM By DESHAWN DOYLE ; [facility] Current Medications (continue as prescribed) Co [...] DOYLE ; [facility] Fish Oil 1000MG Oral Capsule 11/16/2017 Provider : Diagnosis: Last Documented On 8 12:42PM By DONALDO DOYLE ; [facility] Twbklrvqvu-Vuiovueuax-VTVR 40-10-25MG Oral Tablet 11/2017 Provider: Diagnosis: Last Documented On 8 12:43PM By DONALDO DOYLE ; [facility] Welchol 625 MG OR TABS 01/15/2013 Provider: Diagnosis: Last Documented On 01/15/2013 1:05PM By DONALDO DOYLE ; [facility] Bystolic 5 MG OR TABS 12/09/2011 Provider: Diagnosis: Last Documented On 12/09/2011 10:03AM By AV CORCORAN ; [facility] Spiriva HandiHaler 18 MCG IN CAPS 12/09/2011 Provide r: Diagnosis: Last Documented On 12/09/2011 10:04AM By AV CORCORAN ; [facility] Past Medications on file Keflex 500 MG OR CAPS 01/30/2008 - 02/06/2008 Provider : Diagnosis: Last Documented On 06/09/2009 12:22PM By VIRIDIANA PINTO ; [facility] Medications Administered Includes: Administered Medications from this encounter No Administered Medications Recorded Vital Signs Includes: Vital Signs from this encounter Vital Name 11/17/2018 02:14P Blood Pressure Sitting L 122/72 BP Cuff Size Large Height (in) 62 Weight (lb) 192 Body Mass Index (kg/m2) 35.1 Body Surface Area (m2) 1.9 Last Documented: On 11/17/2018 2:19PM ; [facility] Results Includes: Results discussed during this encounter No Results Recorded For Specified Dates History of Present Illness Includes: History of Present Illness from this encounter PEDRITO GAMBINO is a 63 year old female. - Medication list reviewed - PRIMARY CARE PROVIDER : Dr Tompkins - No vertigo Social History Description Last Updated Orthodox affiliation CHURCH 9 Last Documented On 9 2:11PM ; [facility] Alcohol use 11/17/2018 Last Documented On 9 2:42PM ; [facility] Cigarette smoking 11/17/2018 Last Documented On 9 2:42PM ; [facility] In monogamous relationship 11/17/2018 Last Documented On 9 2:42PM ; [facility] Not using drugs 11/17/2018 Last Documented On 9 2:42PM ; [facility] Sexually active with 1 partners in the l ast year 11/17/2018 Last Documented On 9 2:42PM ; [facility] Smoking status : Current everyday smoker 11/17/2018 Last Documented On 9 2:42PM ; [facility] Social history unchanged 11/17/2018 Last Documented On 9 2:42PM ; [facility] Procedures and Surgical History Includes: Procedures from this encounter Procedures Code Diagnosis Performing Provider Service L ocation Service Date low fat diet Last Documented On 9 2:02PM ; [facility] Preventive Medicine Services (medicare pt) G0101 Last Documented On 9 2:17PM ; [facility] Pap smear done 36144 Last Documented On 9 2:02PM ; [facility] fecal occult blood test was negative 01135 Last Documented On 9 2:01PM ; [facility] Cervical Pap Smear performed Q0091 Last Documented On 9 2:02PM ; [facility] Surgical History Last Updated Dilation + Curettage 02/23/2019 Last Documented On 9 2:11PM ; [facility] Surgical / procedural history orthroscop ic left knee surg ~d&c ~bile duct 02/23/2019 Last Documented On 9 2:11PM ; [facility] Medical History Includes: Medical History addressed during this encounter Description Last Updated FREQUENT UTI'S ~D & C 02/23/2019 Last Documented On 9 2:11PM ; [facility] 3 02/23/2019 Last Documented On 9 2:11PM ; [facility] History of benign essential hypertension 02/23/2019 Last Documented On 9 2:11PM ; [facility] History of chronic obstructive pulmonary disease 02/23/2019 Last Documented On 9 2:11PM ; [facility] History of hyperlipidemia 02/23/2019 Last Documented On 9 2:11PM ; [facility] History of menopause lmp more than 5 yrs ago 02/23/2019 Last Documented On 9 2:11PM ; [facility] LMP: 2003 02/23/2019 Last Documented On 9 2:11PM ; [facility] Para 3 02/23/2019 Last Documented On 9 2:11PM ; [facility] No recent change in medical history 12/2018 Last Documented On 9 2:42PM ; [facility] Sexually active 11/17/2018 Last Documented On 9 2:42PM ; [facility] History of a DXA of the lateral lumbar s pine was performed 02/12/2013 11/17/2018 Last Documented On 9 2:42PM ; [facility] History of complete colonoscopy 12/2018 Last Documented On 9 2:42PM ; [facility] History of Pap smear done 11/16/201712/2018 Last Documented On 9 2:42PM ; [facility] History of screening mammogram was perfo rmed 08/23/2017 11/17/2018 Last Documented On 9 2:42PM ; [facility] Result: normal 11/17/2018 Last Documented On 9 2:42PM ; [facility] Result: normal 11/17/2018 Last Documented On 9 2:42PM ; [facility] Family History Includes: Family History addressed during this encounter Description Last Updated Family history unchanged 11/17/2018 Last Documented On 9 2:42PM ; [facility] Maternal history of hypertension mother 11/17/2018 Last Documented On 9 2:42PM ; [facility] Paternal grandmother's histo ry of family history of heart disease pgm-swollen heart 11/17/2018 Last Documented On 9 2:42PM ; [facility] Sororal history of diabetes mellitus sis ter. Mother is borderline 11/17/2018 Last Documented On 9 2:42PM ; [facility] Spouse name: Shayne 01/15/2013 Last Documented On 9 2:11PM ; [facility] Family medical history of high blood pre ssure 06/09/2009 Last Documented On 9 2:11PM ; [facility] Review of Systems Includes: Review of [...] Active Last Documented On 9 2:23PM ; [facility] Codeine Allergy 06/09/2009 Active Last Documented On 9 2:23PM ; [facility] Encounters Encounter Provider Location Date Check-In Time Check-Out Time Diagnosis ANNUAL TANK TRUCK OPERATOR EXAM ROWAN INGRAM [facility] AIR DRIER MACHINE OPERATOR 11/18/19 19 1:59PM 2:44PM Screening Malig. Neoplasm Rectum,Normal Female Exam Clinical Notes Includes: Clinical Notes from this encounter No Clinical Notes Recorded
--- OUTSIDE RECORDS SUMMARY | 2024-08-01 21:20 | XMS_ITS | Referral Summary ---
Author Organization [facility] Virtual Care Address Formerly [facility], [facility] [place] [address] Phone Care Team Providers Care Production Supervisor Trainee Name Role Phone Sintia Santoyo HAND COMPOSITOR Unavailable [phone] Davey Myles HAND COMPOSITOR Unavailable [phone] Charlie Mtz MD Primary Care Provider [phone] Encounters Date Type Department Care Team Description 08/01/2024 9:10 AM CDT - 08/01/2024 7:50 PM CDT Hospital Encounter [facility] Department [address] [place] [address] Erin Irizarry MD Kheirkhahan, Nazanin, MD Other acute pulmonary embolism without acute cor pulmonale (HCC) (Primary Dx) Discharge Disposition: Discharge to a critical access hospital 07/27/2024 Results [facility] [address] [phone] Charlie Mtz MD 07/24/2024 Orders Only [facility] Health Information Management [address] [place] [address] Charlie Mtz MD 07/17/2024 1:00 PM CDT Office Visit [facility] Primary Care at [address] [place] [phone] Michell Burgos NP Otalgia, left ear (Primary Dx) 07/10/2024 Nurse Triage [facility] [address] [phone] Charlie Mtz MD 07/10/2024 4:00 PM CDT Office Visit [facility] [address] [phone] Ellie Wright, YARA Acute non-recurrent maxillary sinusitis (Primary Dx); Acute diffuse otitis externa of left ear; Class 2 severe obesity due to excess calories with serious comorbidity and body mass index (BMI) of 39.0 to 39.9 in adult (HCC) 07/10/2024 Nurse Triage [facility] [address] [phone] Charlie Mtz MD 07/09/2024 Telephone [facility] [address] [phone] Charlie Mtz MD Medical Question/Miscellaneo us 06/21/2024 Telephone [facility] [address] [phone] Charlie Mtz MD Forms Request 06/05/2024 Telephone [facility] [address] [phone] Charlie Mtz MD 05/31/2024 Telephone [facility] [address] [phone] Charlie Mtz MD Medical Records Request 05/31/2024 Telephone [facility] [address] [phone] Charlie Mtz MD Test Results 05/11/2024 1:02 PM CHURCH ADMINISTRATOR - 05/11/2024 11:59 PM CHURCH ADMINISTRATOR Hospital Encounter [facility] [address] [place] [address] Essential (primary) hypertension Discharge Disposition: Discharge to home or self care 05/11/2024 10:00 AM CHURCH ADMINISTRATOR Lab [facility] [address] [place] [address] from Last 3 Months Allergies [...] loss Assessment & Plan (06/16/2023 1:29 PM CHURCH ADMINISTRATOR): Stable, generally well controlled, patient reports no [...] control Assessment & Plan (05/28/2021 1:00 PM CHURCH ADMINISTRATOR): Not well controlled, encouraged patient continue to [...] options Assessment & Plan (06/16/2023 1:30 PM CHURCH ADMINISTRATOR): Stable, well controlled, improving; patient reports she is more physically active, engaging in social activities, re-engage with congregation Would like to decrease Zoloft given vivid [...] 02/22/2020 Assessment & Plan (02/22/2020 12:16 PM CHURCH ADMINISTRATOR): Small patch of atopic dermatitis on mid [...] today. Assessment & Plan (04/17/2019 2:34 PM CHURCH ADMINISTRATOR): Repeat CBC in 2 weeks. She was previously taking steroids during her ED visit which may have falsely elevated her white blood count. Vitamin D deficiency 04/17/2019 Assessment & Plan (02/22/2020 9:32 AM CHURCH ADMINISTRATOR): Last vitamin d level 12/07/2019 52. Recommend vitamin d3 2000 international units once daily. Assessment & Plan (11/24/2019 3:46 PM CDT): Continue vitamin d2 50,000 International units once weekly and repeat vitamin d level today. Assessment & Plan (04/17/2019 2:34 PM CHURCH ADMINISTRATOR): [place] [address] units once weekly. Get vitamin-D level in 2 weeks with labs. High risk of cardiac event 04/17/2019 Assessment & Plan (09/02/2022 4:40 PM CDT): Stable, well controlled; continue pravastatin 40 mg daily; continue ASA 81 mg daily Encourage risk modifications Assessment & Plan (04/17/2019 2:34 PM CHURCH ADMINISTRATOR): Patient's ASCVD risk score is 13.3%. I recommended that she be on statin instead of bile acid sequestrant for CV prophylaxis. Start atorvastatin 10 mg daily. Mixed hyperlipidemia 04/17/2019 Assessment & Plan (12/19/2023 10:41 AM CDT): Chronic, stable, well controlled Continue Pravastatin 40 mg daily Assessment & Plan (06/16/2023 1:29 PM CHURCH ADMINISTRATOR): Stable, well controlled, lipids in optimal range Continue pravastatin 40 mg daily Assessment & Plan (06/09/2022 4:56 PM CHURCH ADMINISTRATOR): Well controlled, lipids at target Continue pravastatin 40 mg nightly Assessment & Plan (12/15/2021 4:59 PM CDT): Stable, well controlled; continue pravastatin 40 mg nightly Assessment & Plan (09/08/2021 2:06 PM CDT): Stable, generally well controlled; continue pravastatin 40 mg nightly Assessment & Plan (07/09/2021 11:01 AM CDT): Stable, well controlled; continue pravastatin 40 mg nightly Assessment & Plan (05/28/2021 12:58 PM CHURCH ADMINISTRATOR): Stable, well controlled last lipid panel demonstrated normal total cholesterol, LDL mildly elevated 114; continue to monitor encourage low-fat high-fiber diet Continue pravastatin 40 mg daily Assessment & Plan (11/30/2020 1:37 PM CDT): Lipids are well controlled on pravastatin 40 mg once daily. Assessment & Plan (02/22/2020 12:13 PM CHURCH ADMINISTRATOR): Lipids are well controlled on pravastatin 40 mg once daily. Assessment & Plan (11/24/2019 3:43 PM CDT): Continue pravastatin 40 mg daily. Repeat lipid profile today. Recommended Mediterranean diet. Do not think keto diet facilitates a heart healthy diet. Assessment & Plan (09/07/2019 1:31 PM CDT): Continue pravastatin 40 mg daily. Repeat lipid profile in November. Assessment & Plan (04/17/2019 2:35 PM CHURCH ADMINISTRATOR): Lipid abnormalities are unchanged. Nutritional counseling was [...] visit; 124/76 Continue Bystolic 20 mg and Hxyxzfvbuc-apoknfstlq-LWDI 40-10-25 mg daily Assessment & Plan (08/08/2023 1:14 PM CDT): Stable, well controlled; blood pressure goals; continue Bystolic 20 mg daily, rwrdaagsgi-vndptxrpnu-qitjkbnanfzveijkirb 40-10-25 mg Assessment & Plan (06/16/2023 1:29 PM CHURCH ADMINISTRATOR): Stable, well controlled, blood pressure at goal; patient reports no chest pain or headaches Continue Bystolic 20 mg daily, dithvcjqea-sgpdpodudx-asyhsqsjupxebgqyasx 40-10-251 tablet daily; Assessment & Plan (09/02/2022 4:39 PM CDT): Stable, well controlled; blood pressure at target No chest pain or headaches Continue Bystolic 20 mg daily, Tribenzor 40-10-251 tablet daily Assessment & Plan (06/09/2022 4:57 PM CHURCH ADMINISTRATOR): Stable, blood pressure at target Continue Tribenzor [...] daily Assessment & Plan (05/28/2021 12:59 PM CHURCH ADMINISTRATOR): Stable, generally well controlled; blood pressure mildly [...] appointment. Assessment & Plan (02/22/2020 12:14 PM CHURCH ADMINISTRATOR): Hypertension is improved. Continue current treatment regimen. [...] appointment. Assessment & Plan (04/17/2019 2:32 PM CHURCH ADMINISTRATOR): Hypertension is improving with treatment. Continue current [...] cessation Assessment & Plan (05/28/2021 1:02 PM CHURCH ADMINISTRATOR): Patient continues to smoke, smoking about 1 pack per day Encouraged patient to continue to work towards complete cessation Patient understands importance of smoking, but is not yet gotten to change mind set Assessment & Plan (11/30/2020 1:39 PM CDT): Encourage smoking cessation. Assessment & Plan (02/22/2020 12:12 PM CHURCH ADMINISTRATOR): Encourage smoking cessation. Had quit for almost [...] phone. Assessment & Plan (04/17/2019 2:33 PM CHURCH ADMINISTRATOR): Encourage smoking cessation. Assessment & Plan (11/15/2018 [...] daily Assessment & Plan (06/09/2022 4:59 PM CHURCH ADMINISTRATOR): Stable, last A1c was 6.2; at target [...] daily Assessment & Plan (05/28/2021 12:59 PM CHURCH ADMINISTRATOR): Continue to monitor, check A1c to evaluate blood sugars are continue to elevate Continue Tradjenta 5 mg Assessment & Plan (11/30/2020 1:38 PM CDT): A1c today Continue Tradjenta 5 mg once daily. Assessment & Plan (02/22/2020 12:13 PM CHURCH ADMINISTRATOR): A1c well controlled at 6.3. Continue Tradjenta 5 mg once daily. Assessment & Plan (11/24/2019 3:45 PM CDT): Patient on Tradjenta 5 mg daily. Continue medication and diet lifestyle modifications. Assessment & Plan (04/17/2019 2:32 PM CHURCH ADMINISTRATOR): Patient on Tradjenta 5 mg daily. A1c [...] daily Assessment & Plan (06/09/2022 4:58 PM CHURCH ADMINISTRATOR): Stable, improving, quit smoking June 25, 2021; [...] dyspnea, though does report decreased insurance and penitentiary Discussed with patient importance of continued activity and exercise in order to maintain pulmonary help Congratulated patient on smoking cessation will continue Spiriva 18 mcg daily Assessment & Plan (05/28/2021 1:01 PM CHURCH ADMINISTRATOR): Stable, generally well controlled; patient has few [...] p.r.n. Assessment & Plan (02/22/2020 12:16 PM CHURCH ADMINISTRATOR): COPD is worsening. Discussed monitoring symptoms and [...] steroids. Assessment & Plan (04/17/2019 2:32 PM CHURCH ADMINISTRATOR): COPD is improving with treatment. Discussed monitoring [...] levels Assessment & Plan (06/09/2022 4:58 PM CHURCH ADMINISTRATOR): Not well controlled, patient reports symptoms beginning worse; patient reports episodes of agoraphobia; worry about leaving house due to concerns for panic attacks Patient every 6 months ago; continues to have grief related to also Refer to [facility] for individual counseling Continue sertraline 100 mg daily; start diazepam 2 mg p.r.n. for panic attacks Assessment & Plan (05/28/2021 1:01 PM CHURCH ADMINISTRATOR): Not well controlled, patient has multiple recent [...] 07/12/2018 Assessment & Plan (06/16/2023 1:30 PM CHURCH ADMINISTRATOR): Not well controlled, has been having some difficulty; recently neighbor mode throwing up significant amounts of dust which worsened her symptoms Hoarse voice and nasal changes in swelling, especially morning Continue daily antihistamine, continue Flonase 2 sprays 1-2 times daily Assessment & Plan (12/15/2021 5:00 PM CDT): Generally stable; patient reports symptoms, on-off Continue puet-skx-mhkwihe antihistamine; Flonase 2 sprays each nostril daily [...] (08/05/2020): Added automatically from request for surgery [id number] Assessment & Plan (09/09/2020 5:51 PM CDT): [...] up. Assessment & Plan (05/19/2020 4:51 PM CHURCH ADMINISTRATOR): Noted from recent urinalysis. Will repeat urinalysis to better evaluate her urine. Upper abdominal pain 05/08/2020 021 Overview (05/08/2020): Added automatically from request for surgery [id number] Assessment & Plan (05/19/2020 4:51 PM CHURCH ADMINISTRATOR): Patient has chronic intermittent upper abdominal pain [...] 11/30/2020 Assessment & Plan (02/22/2020 12:13 PM CHURCH ADMINISTRATOR): Patient has a new cough over the last 1 week. I recommended testing for COVID - 19 considering her new symptoms. Reviewed self isolation procedures. Referral for testing placed today. Abnormal feces 05/10/2019 12/19/2023 Overview (05/10/2019): Added automatically from request for surgery [id number] Obesity (BMI 30-39.9) 07/12/20182021 Assessment & Plan [...] daily. Assessment & Plan (04/17/2019 2:32 PM CHURCH ADMINISTRATOR): Obesity is worsening. Discussed the patient's BMI. [...] again. Assessment & Plan (04/27/2017 10:00 AM CHURCH ADMINISTRATOR): Mild pain. Associated with tenderness in the [...] drink = 0.6 oz pur e alcohol) [facility] [email or web address] Answer Date Recorded In the past 12 months has [employer], gas, oil, or water [employer] threatened to shut off services in your [...] week 03/18/2023 How often do you attend [facility] or orthodoxy services? More than 4 times per year 03/18/2023 Do you belong to any clubs o r organizations such as congregation groups, unions, fraternal or athletic groups, or [...] to sleep or slept in a senior living (including now)? No 03/18/2023 Personal Safety Answer [...] on file Legal Sex Female 3:09 PM CHURCH ADMINISTRATOR Gender Identity Not on file Sexual Orientation [...] 07/24/2024 ECG 12-LEAD Routine 05/11/2024 1:16 PM CHURCH ADMINISTRATOR Essential (primary) hypertension EGFR Routine 05/11/2024 10:07 AM CHURCH ADMINISTRATOR URINALYSIS, MICROSCOPIC ONLY Routine 05/11/2024 10:07 AM CHURCH ADMINISTRATOR DIFFERENTIAL AUTO Routine 05/11/2024 10: 07 AM CHURCH ADMINISTRATOR BASIC METABOLIC PANEL Routine 05/11/2024 10:07 AM CHURCH ADMINISTRATOR HEMOGLOBIN A1C Routine 05/11/2024 10:07 AM CHURCH ADMINISTRATOR CBC WITH AUTO DIFFERENTIAL Routine 05/11/2024 10:07 AM CHURCH ADMINISTRATOR URINALYSIS AND REFLEX TO MICROSCOPIC AND CULTURE Routine 05/11/2024 10:07 AM CHURCH ADMINISTRATOR SCREENING MAMMOGRAM BILATERAL W ANDREW Schedule Routine, Read Routine (OP Routine) 01/16/2024 2:28 PM CDT Screening mammogram, encounter for DEXA AXIAL SKELETON BONE DENSITY 1 OR MORE SITES Schedule Routine, Read Routine (OP Routine) 01/16/2024 2:16 PM CDT Post-menopausal CT LUNG CANCER SCREENING Schedule Routine, Read Routine (OP Routine) 07/13/2023 5:26 PM CDT Personal history of nicotine dependence COLONOSCOPY 05/22/2019 10:39 AM CHURCH ADMINISTRATOR HEPATITIS C ANTIBODY Routine 05/18/2019 10:48 AM CHURCH ADMINISTRATOR Encounter for hepatitis C screening test for [...] BLOOD ORDERABLES Molly mukherjee Result [facility] ([place]) 1 [facility] [place] [address] * Sepsis Lactate w/ Reflex (08/01/2024 2:07 PM CDT) Pathologist [facility] Sepsis Lactate 1.2 0.7 - 2.0 mmol/L Blood 08/01/2024 2:07 PM CDT 08/01/2024 2:12 PM CDT Erin Irizarry MD LAB BLOOD ORDERABLES Molly l Result Performing Organization Address City/[facility] Co de Phone Number [facility] ([place]) 1 [place] [address] * Troponin T high-sensitivity 2-hour (08/01/2024 11:07 AM CDT) [facility] Trop T hs 11 <=14 ng/L Comment: Interpretive Data For further hscTnT resources including the diagnostic algorithm and an aid in interpretation, copy and paste this link: https://nrl.testcatalog.org/show/hsTrop Current Interpretive Data last revised 2020. Trop T hs delta 1 ng/L [facility] ([place]) Trop T hs interp Insignificant [facility] ([place]) Blood 08/01/2024 11:0 7 AM CDT 08/01/2024 11:12 AM CDT Erin Irizarry MD LAB BLOOD ORDERABLES Molly l Result [facility] ([place]) 1 [facility] [address] [place] [address] * Procalcitonin (08/01/2024 11:07 AM CDT) Pathologist [facility] Procalcitonin 0.05 <=0.25 ng/mL Comment:Testing performed by : [facility], [facility], [place]., [address] Blood 08/01/2024 11:0 7 AM CDT 08/01/2024 3:52 PM CDT us Erin Irizarry MD LAB BLOOD ORDERABLES Molly yaz Result [facility] ([place]) 1 [facility] Department of Laboratories [place], [place] [id number] * CT Chest PE (CTA) W Contrast [...] Riley Harrington M.D. CH: [place] Report ID: [id number] Reading Location: [id number] Procedure Note Riley Harrington Jr., MD - [...] Riley Harrington M.D. CH: [place] Report ID: [id number] Reading Location: [id number] us Erin Irizarry MD IMG CT PROCEDURES [...] Riley Harrington M.D. [place]: [place] Report ID: [id number] Reading Location: [id number] Procedure Note Riley Harrington Jr., MD - [...] Riley Harrington M.D. [place]: [place] Report ID: [id number] Reading Location: [id number] Erin Irizarry MD IMG US PROCEDURES Final [...] Jeremy Goetz M.D. INDY: INDY Report ID: [id number] Reading Location: [id number] Procedure Note Jeremy Goetz MD - 08/01/2024 EXAM DESCRIPTION: XR CHEST 1 VIEW REASON FOR STUDY: Acute shortness of breath for 2 days in a patient with history of COPD. Complaint of ecchymosis, redness, and warmth to rightlower extremity status post recent right knee replacement. TECHNIQUE: Single frontal radiographic view(s) of the chest. COMPARISON: Chest radiograph 03/13/2023; CT lung cancer anvphtbqc02/03/2024 FINDINGS: LUNGS: No focal consolidation. No pleural effusion. No pneumothorax. Emphysematous changes. HEART/MEDIASTINUM: Stable cardiomediastinal silhouette better evaluatedon prior CT imaging. LINES/TUBES: None. BONES: No acute osseous abnormality. IMPRESSION: No radiographic evidence of acute cardiopulmonary process. THIS IS AN ELECTRONICALLY VERIFIED FINAL REPORT 08/01/2024 9:51 AM - Electronically signed by Jeremy Goetz M.D. INDY: INDY Report ID: [id number] Reading Location: [place] [address] Erin Irizarry MD IMG XR PROCEDURES Final R esult * Troponin T high-sensitivity series (baseline, 2hr, 4hr, 6hr) (08/01/2024 9:15 AM CDT) Pathologist [facility] Trop T hs 10 <=14 ng/L Comment: Interpretive Data For further hscTnT resources including the diagnostic algorithm and an aid in interpretation, copy and paste this link: https://nrl.testcatalog.org/show/hsTrop Current Interpretive Data last revised 2020. Blood 08/01/2024 9:15 AM CDT 08/01/2024 9:20 AM CDT Erin Irizarry MD LAB BLOOD ORDERABLES Molly l Result [facility] ([place]) 1 [facility] Department [place] [address] * Influenza A/B, RSV, and COVID-19 PCR Nasopharyngeal (08/01/2024 9:15 AM CDT) [facility] COVID-19 RNA Negative Negative Influenza A RNA Negative Negative [facility] ([place]) Influenza B RNA Negative Negative [facility] ([place]) RSV RNA Negative Negative [facility] ([place]) Comment: Interpretive data: Testing performed by [facility]. This test is performed using the [employer] Xpert Xpress CoV-2/Flu/RSV plus assay. This is a multiplex, real- time reverse transcriptase PCR assay intended for the qualitative detection of nucleic acid from SARS-CoV-2, influenza A, influenza B, and respiratory syncytial virus. This assay has been cleared by the [place] Food and Drug administration. The performance characteristics have been verified by the [facility]. Results must be considered in the clinical context, and a negative result does not rule out infection. Interpretive Data last revised 2023 Nasopharyngeal 08/01/2024 9: 15 AM CDT 08/01/2024 9:20 AM CDT Narrative [facility] ([place]) - 08/01/2024 10:02 AM CDT Is the Patient experiencing symptoms consistent with COVID?->Yes us Erin Irizarry MD LAB MICROBIOLOGY - GENERA L ORDERABLES Final Result Performing Organization Address City/[facility]/ZIP Co de Phone Number [facility] ([place]) 1 [facility] [place] [address] * (ABNORMAL) Sepsis Lactate w/ Reflex (08/01/2024 9:15 AM CDT) Pathologist [facility] Sepsis Lactate 2.4(H) 0.7 - 2.0 mmol/L Blood 08/01/2024 9:15 AM CDT 08/01/2024 9:20 AM CDT Erin Irizarry MD LAB BLOOD ORDERABLES Molly l Result [facility] ([place]) [address] [place] [address] [place] [address] * eGFR (08/01/2024 9:15 AM CDT) eGFR [...] BLOOD ORDERABLES Molly mukherjee Result [facility] ([place]) 1 [facility] [place] [address] * (ABNORMAL) Differential, auto (08/01/2024 9:15 AM CDT) Neutrophil abs 9.79(H) 1.50 - 6.50 K/cumm Imm gran abs 0.11(H) 0.00 - 0.10 K/cumm [facility] ([place]) Lymphocyte abs 1.45 0.80 - 3.30 K/cumm [facility] ([place]) Monocyte abs 0.80 0.20 - 0.80 K/cumm [...] Imm gran pct 0.9 % [facility] ([place]) Comment: Interpretive Data Percent cell count reference [...] Molly mukherjee Result [facility] ([place]) 1 [facility] [place] [address] * (ABNORMAL) Pro B-type natriuretic peptide (08/01/2024 [...] BLOOD ORDERABLES Molly l Result [facility] ([place]) 1 [facility] Department of Laboratories [place], [place] [id number] * (ABNORMAL) CBC with auto differential (08/01/2024 [...] (CR) MCHC 31.3(L) 32.3 - 35.7 g/dL [facility] ([place]) RDW CV 17.2(H) 11.1 - 14.9 % [facility] ([place]) RDW SD 53.5(H) 35.7 - 48.1 fL [facility] ([place]) NRBC abs 0.04(H) 0.00 - 0.01 K/cumm [facility] ([place]) Blood 08/01/2024 9:15 AM CDT 08/01/2024 9:20 AM CDT Erin Irizarry MD LAB BLOOD ORDERABLES Molly l Result Performing Organization Address [facility]/ZIP Co de Phone Number [facility] ([place]) 1 [facility] [place] [address] * (ABNORMAL) aPTT (08/01/2024 9:15 AM CDT) aPTT 24(L) 28 - 38 sec [facility] ([place]) Comment: Interpretive Data Heparin therapeutic range: 66.0 - 100.0 seconds. Range based on correlation with therapeutic heparin activity range of 0.3 - 0.7 Units/mL. Current interpretive data was last revised on 2023. Blood 08/01/2024 9:15 AM CDT 08/01/2024 9:20 AM CDT Erin Irizarry MD LAB BLOOD ORDERABLES Molly l Result [facility] ([place]) 1 [facility] [place] [address] * (ABNORMAL) Protime-INR (08/01/2024 9:15 AM CDT) PT 15.1(H) 9.7 - 13.0 sec [facility] ([place]) INR 1.39(H) 0.90 - 1.20 [facility] ([place]) Comment: Interpretive data Oral anticoagulant therapeutic ranges: Venous thromboembolism prophylaxis or treatment: 2.0-3.0 CARDIOLOGY Standard range: 2.0-3.0 High-intensity range: 2.5-3.5 Refer to indication-specific guidelines for appropriate target ranges for prosthetic heart valve replacement. Current interpretive data was last revised on 2019. Blood 08/01/2024 9:15 AM CDT 08/01/2024 9:20 AM CDT Erin Irizarry MD LAB BLOOD ORDERABLES Molly l Result Performing Organization Address City/[facility]/ZIP Co de Phone Number [facility] ([place]) 1 [facility] [place] [address] * (ABNORMAL) D-dimer, quantitative (08/01/2024 9:15 AM [...] ORDERABLES Molly l Result Performing Organization Address City/[facility]/ZIP Co de Phone Number [facility] ([place]) 1 [facility] [place] [address] * (ABNORMAL) Comprehensive metabolic panel (08/01/2024 9:15 AM CDT) Sodium 140 135 - 145 mmol/L Potassium, pl 3.1(L) 3.3 - 4.9 mmol/L [facility] ([place]) Chloride 99 97 - 110 mmol/L [facility] [...] ORDERABLES Molly l Result Performing Organization Address [facility]/ZIP Co de Phone Number [facility] ([place]) 1 [facility] [place] [address] * ECG 12 lead (08/01/2024 9:07 AM CDT) 08/01/2024 9:07 AM CDT Narrative [facility] - 08/01/2024 12:18 PM CDT Vent Rate: 72 bpm RR Interval: 828 msec GA Interval: 143 msec QRS Duration: 102 msec QT Interval: 346 msec QTC Interval: 370 msec P-R-T [place]: 80 - 80 - -31 degrees IMPRESSION: SINUS RHYTHM NONSPECIFIC ST \T\ T-WAVE ABNORMALITY ABNORMAL ECG NO CHANGE FROM PREVIOUS TRACING NOTED Electronically Signed By: Matthew Hunt MD us Erin Irizarry MD ECG ORDERABLES Final Res ult Performing Organization Address [facility] Co de Phone Number [facility] [employer] [facility] * SCAN - RADIOLOGY/IMAGING (07/24/2024) Anatomical Region Laterality Modality Other us Charlie Mtz MD Final Res ult * ECG 12 lead (05/11/2024 1:16 PM CHURCH ADMINISTRATOR) 05/11/2024 1:18 PM CHURCH ADMINISTRATOR Narrative [facility] - 05/11/2024 2:51 PM CHURCH ADMINISTRATOR Vent Rate: 60 bpm RR Interval: 988 msec GA Interval: 153 msec QRS Duration: 94 msec QT Interval: 424 msec QTC Interval: 425 msec P-R-T [place]: 33 - 75 - 47 degrees IMPRESSION: SINUS RHYTHM Probably normal. No prior EKG for comparison Electronically Signed By: Dr Jeff Austin us Jarred Koch MD ECG ORDERABLES Final Result Performing Organization Address [facility] Co de Phone Number [facility] Organic Society [facility] * eGFR (05/11/2024 10:07 AM CHURCH ADMINISTRATOR) eGFR >90 >=60 mL/min/1. 73 m2 Comment: [...] was last reviewed 2021. Testing performed by: [address] [address] Blood 05/11/2024 10:0 7 AM CHURCH ADMINISTRATOR 05/11/2024 12:39 PM CHURCH ADMINISTRATOR Jarred Koch MD LAB BLOOD ORDERABLES Final R esult SUJATA FARIAS ([place]) 1 [facility] Department [place] [address] * Differential, auto (05/11/2024 10:07 AM CHURCH ADMINISTRATOR) Neutrophil abs 5.3 1.5 - 6.5 K/cumm Comment:Testing performed by : [facility], [address] [place] [address]., [address] Imm gran abs 0.0 0.0 - 0.1 K/cumm SUJATA FARIAS (CR) Comment:Testing performed by : [address] [address] Lymphocyte abs 2.0 0.8 - 3.3 K/cumm SUJATA FARIAS (CR) Comment:Testing performed by : [address] [address] Monocyte abs 0.6 0.2 - 0.8 K/cumm [facility] (CR) Comment:Testing performed by : [facility], [address] [place] [address]., [address] Eosinophil abs 0.2 0.0 - 0.5 K/cumm [facility] (CR) Comment:Testing performed by : [facility], [address] [place] [address]., [address] Basophil abs 0.1 0.0 - 0.1 K/cumm [facility] (CR) Comment:Testing performed by : [address] [address] Neutrophil pct 64.4 % [facility] (CR) Comment: Interpretive Data Percent cell count reference ranges are not reported, since discordance with absolute values may lead to misinterpretation of CBC data. Current Interpretive Data was last revised on 2017. Testing performed by: [address] [address] Imm gran pct 0.2 % [facility] (CR) Comment: Interpretive Data Percent cell count reference ranges are not reported, since discordance with absolute values may lead to misinterpretation of CBC data. Current Interpretive Data was last revised on 2017. Testing performed by: [address] [address] Lymphocyte pct 24.5 % [facility] (CR) Comment: Interpretive Data Percent cell count reference ranges are not reported, since discordance with absolute values may lead to misinterpretation of CBC data. Current Interpretive Data was last revised on 2017. Testing performed by: [address] [address] Monocyte pct 7.8 % [facility] (CR) Comment: Interpretive Data Percent cell count reference ranges are not reported, since discordance with absolute values may lead to misinterpretation of CBC data. Current Interpretive Data was last revised on 2017. Testing performed by: [address] [address] Eosinophil pct 2.5 % [facility] (CR) Comment: Interpretive Data Percent cell count reference ranges are not reported, since discordance with absolute values may lead to misinterpretation of CBC data. Current Interpretive Data was last revised on 2017. Testing performed by: [address] [address] Basophil pct 0.6 % SUJATA FARIAS (CR) Comment: Interpretive Data Percent cell count reference ranges are not reported, since discordance with absolute values may lead to misinterpretation of CBC data. Current Interpretive Data was last revised on 2017. Testing performed by: [facility], [address] [place] [address]., [address] Blood 05/11/2024 10:0 7 AM CHURCH ADMINISTRATOR 05/11/2024 10:07 AM CHURCH ADMINISTRATOR Jarred Koch MD LAB BLOOD ORDERABLES Final R esult SUJATA FARIAS (CR) 1 [facility] Department [place] [address] * (ABNORMAL) Urinalysis reflex to microscopic and culture Urine, clean voided (05/11/2024 10:07 AM CHURCH ADMINISTRATOR) Color, ur Yellow Yellow Comment:Testing performed by : [address] [address] Clarity, ur Clear Clear SUJATA Hopkins (CR) Comment:Testing performed by : [address] [address] Specific gravity, ur 1.026 1.003 - 1.030 SUJATA FARIAS (CR) Comment:Testing performed by : [address] [address] pH, urine 5.5 SUJATA FARIAS (CR) Comment: Interpretive Data U rine pH is affected by diet, medications, systemic acid-base disturbances, and renal tubular function. pH may affect urinary stone formation. For example, urine pH below 6.0 may help reduce the tendency for calcium phosphate stones and pH greater than 6.0 may reduce the tendency for uric acid stone formation. Source: [employer] Current Interpretive Data was last revised on 2017 Testing performed by: [address] [address] Protein, ur ql Negative Negative CERNE R JARRETT (CR) Comment:Testing performed by : [address] [place] [address] Glucose, ur ql Negative Negative [facility] (CR) Comment:Testing performed by : [facility], [address] [place] [address], [address] Ketones, ur Negative Negative CERNER A (CR) Comment:Testing performed by : [address], [address] Bilirubin, ur Negative Negative [facility] (CR) Comment:Testing performed by : [address], [address] Blood, ur Trace(A) Negative [facility] (CR) Comment:Testing performed by : [address], [address] Urobilinogen, ur <2.0 <2.0 mg/dL [facility] (CR) Comment:Testing performed by : [address], [address] Nitrite, ur Negative Negative CERNER A (CR) Comment:Testing performed by : [address], [address] Leukocyte esterase, ur 3+(A) Negative [facility] (CR) Comment:Testing performed by : [address], [address] UA reflex comment Reflex to microscopic UA will be performed. [facility] (CR) Comment:Testing performed by : [address], [address] Urine, clean voided 05/11/2024 10:07 AM CHURCH ADMINISTRATOR 05/11/2024 10:08 AM CHURCH ADMINISTRATOR Jarred Koch MD LAB MICROBIOLOGY - GENERAL O RDERABLES Final Result SUJATA FARIAS ([place]) 1 [facility] Department [place] [address] * (ABNORMAL) CBC with auto differential (05/11/2024 10:07 AM CHURCH ADMINISTRATOR) WBC 8.2 3.8 - 9.9 K/cumm Comment:Testing performed by : [address] [place]., [address] Hgb 15.1 11.9 - 15.5 g/dL [facility] (CR) Comment:Testing performed by : [address], [address] Hct 47.9(H) 35.6 - 45.5 % [facility] (CR) Comment:Testing performed by : [address], [address] Plt 227 150 - 400 K/cumm [facility] (CR) Comment:Testing performed by : [address], [address] MPV 10.0 9.1 - 12.3 fL [facility] (CR) Comment:Testing performed by : [address], [address] RBC 5.55(H) 3.90 - 5.20 M/cumm [facility] (CR) Comment:Testing performed by : [address], [address] MCV 86.3 81.3 - 96.4 fL [facility] (CR) Comment:Testing performed by : [address], [address] MCH 27.2 27.1 - 33.3 pg [facility] (CR) Comment:Testing performed by : [address], [address] MCHC 31.5(L) 32.3 - 35.7 g/dL [facility] (CR) Comment:Testing performed by : [address], [address] RDW CV 15.6(H) 11.1 - 14.9 % [facility] (RC) Comment:Testing performed by : [address], [address] RDW SD 49.2(H) 35.7 - 48.1 fL [facility] (CR) Comment:Testing performed by : [address], [address] NRBC abs 0.00 0.00 - 0.01 K/cumm [facility] (CR) Comment:Testing performed by : [address], [address] Blood 05/11/2024 10:0 7 AM CHURCH ADMINISTRATOR 05/11/2024 10:07 AM CHURCH ADMINISTRATOR Jarred Koch MD LAB BLOOD ORDERABLES Final R esult Performing Organization Address [facility] Co de Phone Number SUJATA [facility] ([place]) 1 [facility] [place] [address] * (ABNORMAL) Urinalysis, microscopic only (05/11/2024 10:07 AM CHURCH ADMINISTRATOR) WBC, ur 0-5 0 - 5 Comment:Testing performed by : [address], [address] RBC, ur 0-2 0 - 2 /HPF SUJATA [facility] (CR) Comment:Testing performed by : [address], [address] Epithelial cells, squamous, ur 11-20(A) 0 - 5 /HPF SUJATA [facility] (CR) Comment:Testing performed by : [address], [address] Mucous, ur Present(A) SUJATA Hopkins (CR) Comment:Testing performed by : [address], [address] Culture Reflex Comment Reflex conditions for urine culture (WBC >10) not met. SUJATA [facility] (CR) Comment:Testing performed by : [address], [address] Urine, clean voided 05/11/2024 10:07 AM CHURCH ADMINISTRATOR 05/11/2024 12:24 PM CHURCH ADMINISTRATOR Jarred Koch MD LAB URINE ORDERABLES Final R esult Performing Organization Address City/[facility]/ZIP Co de Phone Number SUJATA FARIAS (CR) 1 [facility] [place] [address] * (ABNORMAL) Hemoglobin A1c (05/11/2024 10:07 AM CHURCH ADMINISTRATOR) Hgb A1C 6.3(H) 4.0 - 5.6 % Comment:Testing performed by : [address] [address] Estimated Average Glucose 134 mg/dL SUJATA FARIAS ([place]) Comment: The ADA recommends reporting an estimated Average Glucose (eAG) with all Hemoglobin A1c results using the equation derived from a study of 507 normal and diabetic adults. Minority populations were underrepresented and children were not included. (Diabetes Care 31:1818-1760, 2008). The eAG is not equivalent to a fasting glucose. Testing performed by: [facility], [address] [place] [address]., [address] Blood 05/11/2024 10:0 7 AM CHURCH ADMINISTRATOR 05/11/2024 10:07 AM CHURCH ADMINISTRATOR Jarred Koch MD LAB BLOOD ORDERABLES Final R esult SUJATA FARIAS ([place]) 1 [facility] Department [place] [address] * (ABNORMAL) Basic metabolic panel (05/11/2024 10:07 AM CHURCH ADMINISTRATOR) [facility] Sodium 142 135 - 145 mmol/L Comment:Testing performed by : [address] [address] Potassium, pl 3.7 3.3 - 4.9 mmol/L SUJATA FARIAS (CR) Comment:Testing performed by : [address], [address] Chloride 101 97 - 110 mmol/L SUJATA FARIAS (CR) Comment:Testing performed by : [address] [address] CO2 27 22 - 32 mmol/L SUJATA FARIAS (CR) Comment:Testing performed by : [address], [address] Anion gap 14 2 - 15 mmol/L SUJATA FARIAS (CR) Comment:Testing performed by : [address], [address] BUN 14 6 - 25 mg/dL SUJATA FARIAS (CR) Comment:Testing performed by : [address] [address] Creatinine 0.51(L) 0.60 - 1.10 mg/dL SUJATA FARIAS (CR) Comment:Testing performed by : [address] [address] Glucose 130 70 - 199 mg/dL SUJATA [...] was last revised 2022. Testing performed by: [address] [address] Calcium 9.2 8.5 - 10.3 mg/dL SUJATA FARIAS (CR) Comment:Testing performed by : [address] [address] Blood 05/11/2024 10:0 7 AM CHURCH ADMINISTRATOR 05/11/2024 10:07 AM CHURCH ADMINISTRATOR Jarred Koch MD LAB BLOOD ORDERABLES Final R esult SUJATA FARIAS ([place]) 1 [facility] Department [place] [address] * Screening Mammogram Bilateral W Andrew (01/16/2024 [...] history of: screening Osteoporosis screening Post menopausal Complaint Inspector/Model: [employer] (S/N [id number]) CLINICAL INFORMATION: Current height: 61 inches Maximum [...] Filemon Albert M.D. MF: SHERYL Report ID: [id number] Reading Location: [place] [address] Procedure Note Filemon Albert MD - 01/16/2024 EXAM DESCRIPTION: DEXA AXIAL SKELETON BONE DENSITY 1 OR MORE SITES REASON FOR STUDY: 68 y/o year old F with given history of: screening Osteoporosis screening Post menopausal Complaint Inspector/Model: [employer] (S/N [id number]) CLINICAL INFORMATION: Current height: 61 inches Maximum [...] Filemon Albert M.D. MF: SHERYL Report ID: [id number] Reading Location: [place] [address] Charlie Mtz MD IMG DXA PROCEDURES Final [...] Lux Sin M.D. AM: AM Report ID: [id number] Reading Location: [place] [address] Procedure Note Lux Sin MD - 07/14/2023 [...] Lux Sin M.D. AM: AM Report ID: [id number] Reading Location: [id number] us Charlie Mtz MD IMG CT PROCEDURES Final R esult * COLONOSCOPY (05/22/2019 10:39 AM CHURCH ADMINISTRATOR) Anatomical Region Laterality Modality Other Narrative Procedure Note Marlon Cronin MD - 05/22/2019 10:[address] [facility] Patient Name: Brittanie Gambino Procedure Date: 05/22/2019 10:39 AM Date of : 1955 Admit Type: Outpatient Age: 63 Gender: Female Attending MD: Marlon Cronin M.D. Room: [facility] ENDOSCOPY ROOM 2 Note Status: Finalized Patient Profile: Refer to note in patient chart for documentation of history and physical. Procedure: Colonoscopy Indications: Screening for colorectal malignant neoplasm, Last colonoscopy: June 2009 Referring MD: Sydney Tompkins, F.N.P. Providers: Marlon Crnoin M.D. Impression: - Hemorrhoids found on perianal [...] scope was passed under direct vision.The Colonoscope CF-[id number] was introducedthrough the anus and advanced to [...] malignant neoplasm of colon CPT copyright 2017 [employer]. All rights reserved. The codes documented in this report are preliminary and upon photonics engineer reviewmay be revised to meet current compliance requirements. Recognized by the [employer] for promoting quality in endoscopy us Marlon Cronin MD ENDOSCOPY PROCEDURES Final Re sult * Hepatitis C antibody (05/18/2019 10:48 AM CHURCH ADMINISTRATOR) Hep C Ab Negative Negative SUJATA JARRETT (CR) Comment:Testing performed by : [facility], [address] [place] [address], [place]., [address] Blood specimen (specimen) 05/18/2019 10:48 AM CHURCH ADMINISTRATOR 05/18/2019 1:38 PM CHURCH ADMINISTRATOR us Sydney Tompkins NP LAB MICROBIOLOGY - GENERAL O RDERABLES Final Result SUJATA JARRETT (CR) 1 [facility] Department [place] [address] from Last 3 Months or Most Recently Relevant to Health Maintenance Insurance MEDICARE [facility] [place] [address] MEDICARE [facility] MEDICARE [facility] [place] [address] Advance Directives For more information, please contact: [phone] * Full Code (Latest Code Status on [...] 10:14 AM 05/22/2019 10:14 AM Care Teams Production Supervisor Trainee Relationship Specialty Start Date End Date Charlie Mtz [place] [address] PCP - General Family Medicine 05/28/21 Sintia Santoyo NP Nurse Practitioner Obstetrics and Gynecology 07/13/18 Davey Myles NP Nurse Practitioner Family Practice 10/16/20
--- OUTSIDE RECORDS SUMMARY | 2024-08-01 21:20 | XMS_ITS | Clinical Summary ---
Author Organization [facility] Virtual Care Address [address] [place] [phone] Phone Care Team Providers Care Criminal Court Judge Name Role Phone Sintia Santoyo DIETARY MANAGER Unavailable [phone] Davey Myles DIETARY MANAGER Unavailable [phone] Charlie Mtz MD Primary Care Provider [phone] Allergies Active Allergy Reactions Criticality Noted Date [...] & Plan (06/16/2023 1:29 PM COORDINATOR OF GENETIC SERVICES): Stable, generally well controlled, patient reports no [...] & Plan (05/28/2021 1:00 PM COORDINATOR OF GENETIC SERVICES): Not well controlled, encouraged patient continue to [...] & Plan (06/16/2023 1:30 PM COORDINATOR OF GENETIC SERVICES): Stable, well controlled, improving; patient reports she is more physically active, engaging in social activities, re-engage with advent Would like to decrease Zoloft given vivid [...] & Plan (02/22/2020 12:16 PM COORDINATOR OF GENETIC SERVICES): Small patch of atopic dermatitis on mid [...] & Plan (04/17/2019 2:34 PM COORDINATOR OF GENETIC SERVICES): Repeat CBC in 2 weeks. She was previously taking steroids during her ED visit which may have falsely elevated her white blood count. Vitamin D deficiency 04/17/2019 Assessment & Plan (02/22/2020 9:32 AM COORDINATOR OF GENETIC SERVICES): Last vitamin d level 12/07/2019 52. Recommend vitamin d3 2000 international units once daily. Assessment & Plan (11/24/2019 3:46 PM CDT): Continue vitamin d2 50,000 International units once weekly and repeat vitamin d level today. Assessment & Plan (04/17/2019 2:34 PM COORDINATOR OF GENETIC SERVICES): [place] [address] units once weekly. Get vitamin-D level in 2 weeks with labs. High risk of cardiac event 04/17/2019 Assessment & Plan (09/02/2022 4:40 PM CDT): Stable, well controlled; continue pravastatin 40 mg daily; continue ASA 81 mg daily Encourage risk modifications Assessment & Plan (04/17/2019 2:34 PM COORDINATOR OF GENETIC SERVICES): Patient's ASCVD risk score is 13.3%. I recommended that she be on statin instead of bile acid sequestrant for CV prophylaxis. Start atorvastatin 10 mg daily. Mixed hyperlipidemia 04/17/2019 Assessment & Plan (12/19/2023 10:41 AM CDT): Chronic, stable, well controlled Continue Pravastatin 40 mg daily Assessment & Plan (06/16/2023 1:29 PM COORDINATOR OF GENETIC SERVICES): Stable, well controlled, lipids in optimal range Continue pravastatin 40 mg daily Assessment & Plan (06/09/2022 4:56 PM COORDINATOR OF GENETIC SERVICES): Well controlled, lipids at target Continue pravastatin [...] & Plan (05/28/2021 12:58 PM COORDINATOR OF GENETIC SERVICES): Stable, well controlled last lipid panel demonstrated normal total cholesterol, LDL mildly elevated 114; continue to monitor encourage low-fat high-fiber diet Continue pravastatin 40 mg daily Assessment & Plan (11/30/2020 1:37 PM CDT): Lipids are well controlled on pravastatin 40 mg once daily. Assessment & Plan (02/22/2020 12:13 PM COORDINATOR OF GENETIC SERVICES): Lipids are well controlled on pravastatin 40 [...] & Plan (04/17/2019 2:35 PM COORDINATOR OF GENETIC SERVICES): Lipid abnormalities are unchanged. Nutritional counseling was [...] visit; 124/76 Continue Bystolic 20 mg and Yhapvkufrv-tdtwyzaifc-YMKC 40-10-25 mg daily Assessment & Plan (08/08/2023 1:14 PM CDT): Stable, well controlled; blood pressure goals; continue Bystolic 20 mg daily, khicgcatnj-ipkrpcskik-umskgrnpfusaelhbswc 40-10-25 mg Assessment & Plan (06/16/2023 1:29 PM COORDINATOR OF GENETIC SERVICES): Stable, well controlled, blood pressure at goal; patient reports no chest pain or headaches Continue Bystolic 20 mg daily, gxbkehhkxi-espmczohku-ghtmcxlbcplqmgprldo 40-10-251 tablet daily; Assessment & Plan (09/02/2022 4:39 PM CDT): Stable, well controlled; blood pressure at target No chest pain or headaches Continue Bystolic 20 mg daily, Tribenzor 40-10-251 tablet daily Assessment & Plan (06/09/2022 4:57 PM COORDINATOR OF GENETIC SERVICES): Stable, blood pressure at target Continue Tribenzor [...] & Plan (05/28/2021 12:59 PM COORDINATOR OF GENETIC SERVICES): Stable, generally well controlled; blood pressure mildly [...] & Plan (02/22/2020 12:14 PM COORDINATOR OF GENETIC SERVICES): Hypertension is improved. Continue current treatment regimen. [...] & Plan (04/17/2019 2:32 PM COORDINATOR OF GENETIC SERVICES): Hypertension is improving with treatment. Continue current [...] & Plan (05/28/2021 1:02 PM COORDINATOR OF GENETIC SERVICES): Patient continues to smoke, smoking about 1 pack per day Encouraged patient to continue to work towards complete cessation Patient understands importance of smoking, but is not yet gotten to change mind set Assessment & Plan (11/30/2020 1:39 PM CDT): Encourage smoking cessation. Assessment & Plan (02/22/2020 12:12 PM COORDINATOR OF GENETIC SERVICES): Encourage smoking cessation. Had quit for almost [...] & Plan (04/17/2019 2:33 PM COORDINATOR OF GENETIC SERVICES): Encourage smoking cessation. Assessment & Plan (11/15/2018 [...] & Plan (06/09/2022 4:59 PM COORDINATOR OF GENETIC SERVICES): Stable, last A1c was 6.2; at target [...] & Plan (05/28/2021 12:59 PM COORDINATOR OF GENETIC SERVICES): Continue to monitor, check A1c to evaluate blood sugars are continue to elevate Continue Tradjenta 5 mg Assessment & Plan (11/30/2020 1:38 PM CDT): A1c today Continue Tradjenta 5 mg once daily. Assessment & Plan (02/22/2020 12:13 PM COORDINATOR OF GENETIC SERVICES): A1c well controlled at 6.3. Continue Tradjenta 5 mg once daily. Assessment & Plan (11/24/2019 3:45 PM CDT): Patient on Tradjenta 5 mg daily. Continue medication and diet lifestyle modifications. Assessment & Plan (04/17/2019 2:32 PM COORDINATOR OF GENETIC SERVICES): Patient on Tradjenta 5 mg daily. A1c [...] & Plan (06/09/2022 4:58 PM COORDINATOR OF GENETIC SERVICES): Stable, improving, quit smoking June 25, 2021; [...] & Plan (05/28/2021 1:01 PM COORDINATOR OF GENETIC SERVICES): Stable, generally well controlled; patient has few [...] & Plan (02/22/2020 12:16 PM COORDINATOR OF GENETIC SERVICES): COPD is worsening. Discussed monitoring symptoms and [...] & Plan (04/17/2019 2:32 PM COORDINATOR OF GENETIC SERVICES): COPD is improving with treatment. Discussed monitoring [...] & Plan (06/09/2022 4:58 PM COORDINATOR OF GENETIC SERVICES): Not well controlled, patient reports symptoms beginning worse; patient reports episodes of agoraphobia; worry about leaving house due to concerns for panic attacks Patient every 6 months ago; continues to have grief related to also Refer to [facility] for individual counseling Continue sertraline 100 mg daily; start diazepam 2 mg p.r.n. for panic attacks Assessment & Plan (05/28/2021 1:01 PM COORDINATOR OF GENETIC SERVICES): Not well controlled, patient has multiple recent [...] & Plan (06/16/2023 1:30 PM COORDINATOR OF GENETIC SERVICES): Not well controlled, has been having some difficulty; recently neighbor mode throwing up significant amounts of dust which worsened her symptoms Hoarse voice and nasal changes in swelling, especially morning Continue daily antihistamine, continue Flonase 2 sprays 1-2 times daily Assessment & Plan (12/15/2021 5:00 PM CDT): Generally stable; patient reports symptoms, on-off Continue xtgo-zuq-ekhicip antihistamine; Flonase 2 sprays each nostril daily [...] (08/05/2020): Added automatically from request for surgery [id number] Assessment & Plan (09/09/2020 5:51 PM CDT): [...] & Plan (05/19/2020 4:51 PM COORDINATOR OF GENETIC SERVICES): Noted from recent urinalysis. Will repeat urinalysis to better evaluate her urine. Upper abdominal pain 05/08/2020 021 Overview (05/08/2020): Added automatically from request for surgery [id number] Assessment & Plan (05/19/2020 4:51 PM COORDINATOR OF GENETIC SERVICES): Patient has chronic intermittent upper abdominal pain [...] & Plan (02/22/2020 12:13 PM COORDINATOR OF GENETIC SERVICES): Patient has a new cough over the last 1 week. I recommended testing for COVID - 19 considering her new symptoms. Reviewed self isolation procedures. Referral for testing placed today. Abnormal feces 05/10/2019 12/19/2023 Overview (05/10/2019): Added automatically from request for surgery [id number] Obesity (BMI 30-39.9) 07/12/20182021 Assessment & Plan [...] & Plan (04/17/2019 2:32 PM COORDINATOR OF GENETIC SERVICES): Obesity is worsening. Discussed the patient's BMI. [...] & Plan (04/27/2017 10:00 AM COORDINATOR OF GENETIC SERVICES): Mild pain. Associated with tenderness in the [...] - 08/01/2024 7:50 PM CDT Hospital Encounter [facility] Emergency Department [address] [place] [address] Erin Irizarry MD Kheirkhahan, Nazanin, MD Other acute pulmonary embolism without acute cor pulmonale (HCC) (Primary Dx) Discharge Disposition: Discharge to a critical access hospital 07/27/2024 Results [facility]Up [facility] [address] [phone] Charlie Mtz MD 07/24/2024 Orders Only [facility] Health Information Management [address] [place] [id number] Charlie Mtz MD 07/17/2024 1:00 PM CDT Office Visit [facility] Primary Care at [address] [place] [phone] Michell Burgos NP Otalgia, left ear (Primary Dx) 07/10/2024 4:00 PM CDT Office Visit [facility] [address] [phone] Ellie Wright NP Acute non-recurrent maxillary sinusitis (Primary Dx); Acute diffuse otitis externa of left ear; Class 2 severe obesity due to excess calories with serious comorbidity and body mass index (BMI) of 39.0 to 39.9 in adult (HCC) 07/10/2024 Nurse Triage [facility] [address] [phone] Charlie Mtz MD 07/10/2024 Nurse Triage [facility] [address] [phone] Charlie Mtz MD 07/09/2024 Telephone [facility] [address] [phone] Charlie Mtz MD Medical Question/Miscellaneo us 06/21/2024 Telephone [facility] [address] [phone] Charlie Mtz MD Forms Request 06/05/2024 Telephone [facility] [address] [phone] Charlie Mtz MD 05/31/2024 Telephone [facility] [address] [phone] Charlie Mtz MD Medical Records Request 05/31/2024 Telephone [facility] [address] [phone] Charlie Mtz MD Test Results 05/11/2024 1:02 PM COORDINATOR OF GENETIC SERVICES - 05/11/2024 11:59 PM COORDINATOR OF GENETIC SERVICES Hospital Encounter [facility] Cardiology [address] [place] [address] Essential (primary) hypertension Discharge Disposition: Discharge to home or self care 05/11/2024 10:00 AM COORDINATOR OF GENETIC SERVICES Lab [facility] [address] [place] [phone] from Last 3 Months Immunizations Immunization Administration [...] drink = 0.6 oz pur e alcohol) [facility] Utilities Answer Date Recorded In the [...] often do you attend chur ch or orthodox services? More than 4 times per year 03/18/2023 Do you belong to any clubs o r organizations such as advent groups, unions, fraternal or athletic groups, or [...] Legal Sex Female 3:09 PM COORDINATOR OF GENETIC SERVICES Gender Identity Not on file Sexual Orientation [...] 07/24/2024 ECG 12-LEAD Routine 05/11/2024 1:16 PM COORDINATOR OF GENETIC SERVICES Essential (primary) hypertension EGFR Routine 05/11/2024 10:07 AM COORDINATOR OF GENETIC SERVICES URINALYSIS, MICROSCOPIC ONLY Routine 05/11/2024 10:07 AM COORDINATOR OF GENETIC SERVICES DIFFERENTIAL AUTO Routine 05/11/2024 10: 07 AM COORDINATOR OF GENETIC SERVICES BASIC METABOLIC PANEL Routine 05/11/2024 10:07 AM COORDINATOR OF GENETIC SERVICES HEMOGLOBIN A1C Routine 05/11/2024 10:07 AM COORDINATOR OF GENETIC SERVICES CBC WITH AUTO DIFFERENTIAL Routine 05/11/2024 10:07 AM COORDINATOR OF GENETIC SERVICES URINALYSIS AND REFLEX TO MICROSCOPIC AND CULTURE Routine 05/11/2024 10:07 AM COORDINATOR OF GENETIC SERVICES SCREENING MAMMOGRAM BILATERAL W ANDREW Schedule Routine, [...] dependence COLONOSCOPY 05/22/2019 10:39 AM COORDINATOR OF GENETIC SERVICES HEPATITIS C ANTIBODY Routine 05/18/2019 10:48 AM COORDINATOR OF GENETIC SERVICES Encounter for hepatitis C screening test for [...] hs delta -1 ng/L [facility] ([place]) Trop T hs interp Insignificant [facility] ([place]) Blood 08/01/2024 2:07 PM CDT 08/01/2024 2:12 PM CDT Erin Irizarry MD LAB BLOOD ORDERABLES Molly l Result [facility] ([place]) 1 [facility] [place] [address] * Sepsis Lactate w/ Reflex (08/01/2024 2:07 PM CDT) Pathologist [facility] Sepsis Lactate 1.2 0.7 - 2.0 mmol/L Blood 08/01/2024 2:07 PM CDT 08/01/2024 2:12 PM CDT Erin Irizarry MD LAB BLOOD ORDERABLES Molly l Result [facility] ([place]) 1 [facility] [place] [address] * Troponin T high-sensitivity 2-hour (08/01/2024 11:07 [...] BLOOD ORDERABLES Molly l Result [facility] ([place]) 1 [facility] [place] [address] * Procalcitonin (08/01/2024 11:07 AM CDT) Procalcitonin 0.05 <=0.25 ng/mL Comment:Testing performed by : [facility], [address] [place] [address]., [id number] Blood 08/01/2024 11:0 7 AM CDT 08/01/2024 3:52 PM CDT Erin Irizarry MD LAB BLOOD ORDERABLES Molly l Result Performing Organization Address City/[facility] Co de Phone Number [facility] ([place]) [address] [place] [address] [place] [address] * CT Chest PE (CTA) W Contrast [...] Riley Harrington M.D. CH: THOMAS Report ID: [id number] Reading Location: [place] [address] Procedure Note Riley Harrington Jr., MD - [...] Riley Harrington M.D. CH: THOMAS Report ID: [id number] Reading Location: [id number] Erin Irizarry MD IMG CT PROCEDURES Final [...] Riley Harrington M.D. CH: THOMAS Report ID: [id number] Reading Location: [id number] Procedure Note Riley Harrington Jr., MD - [...] by Riley Harrington M.D. CH: Report ID: [id number] Reading Location: [place] [address] us Erin Irizarry MD IMG US PROCEDURES [...] Jeremy Goetz M.D. INDY: INDY Report ID: [id number] Reading Location: [place] [address] Procedure Note Jeremy Goetz MD - 08/01/2024 EXAM DESCRIPTION: XR CHEST 1 VIEW REASON FOR STUDY: Acute shortness of breath for 2 days in a patient with history of COPD. Complaint of ecchymosis, redness, and warmth to rightlower extremity status post recent right knee replacement. TECHNIQUE: Single frontal radiographic view(s) of the chest. COMPARISON: Chest radiograph 03/13/2023; CT lung cancer [id number]/03/2024 FINDINGS: LUNGS: No focal consolidation. No pleural effusion. No pneumothorax. Emphysematous changes. HEART/MEDIASTINUM: Stable cardiomediastinal silhouette better evaluatedon prior CT imaging. LINES/TUBES: None. BONES: No acute osseous abnormality. IMPRESSION: No radiographic evidence of acute cardiopulmonary process. THIS IS AN ELECTRONICALLY VERIFIED FINAL REPORT 08/01/2024 9:51 AM - Electronically signed by Jeremy Goetz M.D. INDY: INDY Report ID: [id number] Reading Location: [place] [address] us Erin Irizarry MD IMG XR PROCEDURES [...] ORDERABLES Molly l Result Performing Organization Address [facility] Co de Phone Number [facility] ([place]) [address] [place] [address] Department [place] [address] * Influenza A/B, RSV, and COVID-19 PCR Nasopharyngeal (08/01/2024 9:15 AM CDT) Pathologist [facility] COVID-19 RNA Negative Negative Influenza A RNA Negative Negative [facility] ([place] Influenza B RNA Negative Negative [facility] ([place]) RSV RNA Negative Negative [facility] ([place]) Comment: Interpretive data: Testing performed by [facility]. This test is performed using the fromAtoB Xpert Xpress CoV-2/Flu/RSV plus assay. This is a multiplex, real- time reverse transcriptase PCR assay intended for the qualitative detection of nucleic acid from SARS-CoV-2, influenza A, influenza B, and respiratory syncytial virus. This assay has been cleared by the [place] Food and Drug administration. The performance characteristics have been verified by the [facility]. Results must be considered in the clinical context, and a negative result does not rule out infection. Interpretive Data last revised 2023 Nasopharyngeal 08/01/2024 9: 15 AM CDT 08/01/2024 9:20 AM CDT Narrative [facility] ([place]) - 08/01/2024 10:02 AM CDT Is the Patient experiencing symptoms consistent with COVID?->Yes Erin Irizarry MD LAB MICROBIOLOGY - GENERA L ORDERABLES Final Result Performing Organization Address City/[facility]/ZIP Co de Phone Number [facility] ([place]) 1 [facility] [place] [address] * (ABNORMAL) Sepsis Lactate w/ Reflex (08/01/2024 9:15 AM CDT) [facility] Sepsis Lactate 2.4(H) 0.7 - 2.0 mmol/L Blood 08/01/2024 9:15 AM CDT 08/01/2024 9:20 AM CDT Erin Irizarry MD LAB BLOOD ORDERABLES Molly l Result Performing Organization Address City/[facility]/ZIP Co de Phone Number [facility] ([place]) [address] [place] [address] [place] [address] * eGFR (08/01/2024 9:15 AM CDT) [facility] eGFR >90 >=60 mL/min/1. 73 m2 Comment: [...] Molly l Result [facility] ([place]) 1 [facility] Department [place] [address] * (ABNORMAL) Differential, auto (08/01/2024 9:15 AM [...] BLOOD ORDERABLES Molly mukherjee Result [facility] [place]) 1 [facility] Department [place] [address] * (ABNORMAL) Pro B-type natriuretic peptide (08/01/2024 [...] us Erin Irizarry MD LAB BLOOD ORDERABLES Molyl yaz Result [facility] ([place]) 1 [facility] [place] [address] * (ABNORMAL) CBC with auto differential (08/01/2024 9:15 AM CDT) Pathologist [facility] WBC 12.30(H) 3.80 - 9.90 K/cumm Hgb [...] Molly mukherjee Result [facility] ([place]) 1 [facility] [employer] [place] [address] * (ABNORMAL) aPTT (08/01/2024 9:15 AM CDT) Pathologist [facility] aPTT 24(L) 28 - 38 sec [facility] ([place]) Comment: Interpretive Data Heparin therapeutic range: 66.0 - 100.0 seconds. Range based on correlation with therapeutic heparin activity range of 0.3 - 0.7 Units/mL. Current interpretive data was last revised on 2023. Blood 08/01/2024 9:15 AM CDT 08/01/2024 9:20 AM CDT Erin Irizarry MD LAB BLOOD ORDERABLES Molly l Result Performing Organization Address [facility] Co de Phone Number [facility] ([place]) 1 [facility] [place] [address] * (ABNORMAL) Protime-INR (08/01/2024 9:15 AM CDT) [...] ORDERABLES Molly l Result Performing Organization Address [facility] Co de Phone Number [facility] ([place]) 1 [facility] [place] [address] * (ABNORMAL) D-dimer, quantitative (08/01/2024 9:15 AM [...] MD LAB BLOOD ORDERABLES Molly mukherjee Result [facility]) 1 [facility] Department [place] [address] * (ABNORMAL) Comprehensive metabolic panel (08/01/2024 9:15 AM CDT) Sodium 140 135 - 145 mmol/L Potassium, pl 3.1(L) 3.3 - 4.9 mmol/L [facility] ([facility]) Chloride 99 97 - 110 mmol/L [facility] ([facility]) CO2 26 22 - 32 mmol/L [facility] (RC) Anion gap 15 2 - 15 mmol/L [facility] ([facility]) BUN 18 6 - 25 mg/dL [facility] ([facility]) Creatinine 0.59(L) 0.60 - 1.10 mg/dL [facility] ([facility]) Comment:Icteric sample, test results may be affected. Glucose 155 70 - 199 mg/dL [facility] ([facility]) Comment: Interpretive Data Fasting glucose >/= [...] ORDERABLES Molly l Result Performing Organization Address City/[facility]/ZIP Co de Phone Number [facility] ([place]) 1 [facility] Department [place] [address] * ECG 12 lead (08/01/2024 9:07 AM CDT) 08/01/2024 9:07 AM CDT Narrative [employer] - 08/01/2024 12:18 PM CDT Vent Rate: 72 bpm RR Interval: 828 msec MD Interval: 143 msec QRS Duration: 102 msec QT Interval: 346 msec QTC Interval: 370 msec P-R-T [place]: 80 - 80 - -31 degrees IMPRESSION: SINUS RHYTHM NONSPECIFIC ST \T\ T-WAVE ABNORMALITY ABNORMAL ECG NO CHANGE FROM PREVIOUS TRACING NOTED Electronically Signed By: Matthew Hunt MD Erin Irizarry MD ECG ORDERABLES Final Res ult Performing Organization Address City/[facility]/ZIP Co de Phone Number [employer] [facility] * SCAN - RADIOLOGY/IMAGING (07/24/2024) Anatomical Region Laterality Modality Other us Charlie Mtz MD Final Res ult * ECG 12 lead (05/11/2024 1:16 PM COORDINATOR OF GENETIC SERVICES) 05/11/2024 1:18 PM COORDINATOR OF GENETIC SERVICES Narrative [facility] - 05/11/2024 2:51 PM COORDINATOR OF GENETIC SERVICES Vent Rate: 60 bpm RR Interval: 988 msec MD Interval: 153 msec QRS Duration: 94 msec QT Interval: 424 msec QTC Interval: 425 msec P-R-T [place]: 33 - 75 - 47 degrees IMPRESSION: SINUS RHYTHM Probably normal. No prior EKG for comparison Electronically Signed By: Dr Jeff Austin us Jarred Koch MD ECG ORDERABLES Final Result [facility] * eGFR (05/11/2024 10:07 AM COORDINATOR OF GENETIC SERVICES) eGFR >90 >=60 mL/min/1. 73 m2 Comment: [...] last reviewed 2021. Testing performed by: [facility], [address] [place] [address], [place]., [address] Blood 05/11/2024 10:0 7 AM COORDINATOR OF GENETIC SERVICES 05/11/2024 12:39 PM COORDINATOR OF GENETIC SERVICES Jarred Koch MD LAB BLOOD ORDERABLES Final R esult [facility] ([place]) 1 [facility] Department [place] [address] * Differential, auto (05/11/2024 10:07 AM COORDINATOR OF GENETIC SERVICES) Neutrophil abs 5.3 1.5 - 6.5 K/cumm Comment:Testing performed by : [facility], [address] [place] [address]., [id number] Imm gran abs 0.0 0.0 - 0.1 K/cumm [facility] ([place]) Comment:Testing performed by : [address] [address] Lymphocyte abs 2.0 0.8 - 3.3 K/cumm [facility] ([place]) Comment:Testing performed by : [address], [address] Monocyte abs 0.6 0.2 - 0.8 K/cumm [facility] ([place]) Comment:Testing performed by : [facility], [address] [place] [address]., [id number] Eosinophil abs 0.2 0.0 - 0.5 K/cumm [facility] ([place]) Comment:Testing performed by : [address] [address] Basophil abs 0.1 0.0 - 0.1 K/cumm [facility] ([place]) Comment:Testing performed by : [address] [address] Neutrophil pct 64.4 % [facility] ([place]) Comment: Interpretive Data Percent cell count reference ranges are not reported, since discordance with absolute values may lead to misinterpretation of CBC data. Current Interpretive Data was last revised on 2017. Testing performed by: [address], [address] Imm gran pct 0.2 % [facility] ([place]) Comment: Interpretive Data Percent cell count reference ranges are not reported, since discordance with absolute values may lead to misinterpretation of CBC data. Current Interpretive Data was last revised on 2017. Testing performed by: [facility], [address] [place] [address]., [address] Lymphocyte pct 24.5 % [facility] ([place]) Comment: Interpretive Data Percent cell count reference ranges are not reported, since discordance with absolute values may lead to misinterpretation of CBC data. Current Interpretive Data was last revised on 2017. Testing performed by: [facility], [address] [place] [address]., [id number] Monocyte pct 7.8 % SUJATA FARIAS (CR) Comment: Interpretive Data Percent cell count reference ranges are not reported, since discordance with absolute values may lead to misinterpretation of CBC data. Current Interpretive Data was last revised on 2017. Testing performed by: [facility], [address] [place] [address]., [address] Eosinophil pct 2.5 % CERNE R JARRETT (CR) Comment: Interpretive Data Percent cell count reference ranges are not reported, since discordance with absolute values may lead to misinterpretation of CBC data. Current Interpretive Data was last revised on 2017. Testing performed by: [facility], [address] [place] [address]., [address] Basophil pct 0.6 % SUJATA FARIAS (CR) Comment: Interpretive Data Percent cell count reference ranges are not reported, since discordance with absolute values may lead to misinterpretation of CBC data. Current Interpretive Data was last revised on 2017. Testing performed by: [address] [address] Blood 05/11/2024 10:0 7 AM COORDINATOR OF GENETIC SERVICES 05/11/2024 10:07 AM COORDINATOR OF GENETIC SERVICES Jarred Koch MD LAB BLOOD ORDERABLES Final R esult SUJATA FARIAS (CR) 1 [facility] Department [place] [address] * (ABNORMAL) Urinalysis reflex to microscopic and culture Urine, clean voided (05/11/2024 10:07 AM COORDINATOR OF GENETIC SERVICES) Color, ur Yellow Yellow Comment:Testing performed by : [address] [address] Clarity, ur Clear Clear CERNER A (CR) Comment:Testing performed by : [address] [address] Specific gravity, ur 1.026 1.003 - 1.030 [facility] (CR) Comment:Testing performed by : [address], [address] pH, urine 5.5 [facility] (CR) Comment: Interpretive Data U rine pH is affected by diet, medications, systemic acid-base disturbances, and renal tubular function. pH may affect urinary stone formation. For example, urine pH below 6.0 may help reduce the tendency for calcium phosphate stones and pH greater than 6.0 may reduce the tendency for uric acid stone formation. Source: [facility] Cubicle Current Interpretive Data was last revised on 2017 Testing performed by: [address], [address] Protein, ur ql Negative Negative [facility] (CR) Comment:Testing performed by : [address], [address] Glucose, ur ql Negative Negative [facility] (CR) Comment:Testing performed by : [address], [address] Ketones, ur Negative Negative CERNER A (CR) Comment:Testing performed by : [address], [address] Bilirubin, ur Negative Negative [facility] (CR) Comment:Testing performed by : [address], [address] Blood, ur Trace(A) Negative [facility] (CR) Comment:Testing performed by : [address], [address] Urobilinogen, ur <2.0 <2.0 mg/dL [facility] (CR) Comment:Testing performed by : [address], [address] Nitrite, ur Negative Negative CERNER A (CR) Comment:Testing performed by : [address], [address] Leukocyte esterase, ur 3+(A) Negative [facility]ATA [facility] (CR) Comment:Testing performed by : [address], [address] UA reflex comment Reflex to microscopic UA will be performed. [facility] (CR) Comment:Testing performed by : [address], [address] Urine, clean voided 05/11/2024 10:07 AM COORDINATOR OF GENETIC SERVICES 05/11/2024 10:08 AM COORDINATOR OF GENETIC SERVICES Jarred Koch MD LAB MICROBIOLOGY - GENERAL O RDERABLES Final Result SUJATA FARIAS (CR) 1 [facility] Department [place] [address] * (ABNORMAL) CBC with auto differential (05/11/2024 10:07 AM COORDINATOR OF GENETIC SERVICES) WBC 8.2 3.8 - 9.9 K/cumm Comment:Testing performed by : [address], [address] Hgb 15.1 11.9 - 15.5 g/dL [facility]ATA [facility] (CR) Comment:Testing performed by : [address], [address] Hct 47.9(H) 35.6 - 45.5 % [facility] (CR) Comment:Testing performed by : [address], [address] Plt 227 150 - 400 K/cumm [facility] (CR) Comment:Testing performed by : [address], [address] MPV 10.0 9.1 - 12.3 fL [facility] (CR) Comment:Testing performed by : [address], [address] RBC 5.55(H) 3.90 - 5.20 M/cumm [facility] (CR) Comment:Testing performed by : [address], [address] MCV 86.3 81.3 - 96.4 fL [facility] (CR) Comment:Testing performed by : [facility], [address] [place] [address], [address] MCH 27.2 27.1 - 33.3 pg [facility]ATA [facility] (RC) Comment:Testing performed by : [facility], [address] [place] [address], [address] MCHC 31.5(L) 32.3 - 35.7 g/dL [facility] (CR) Comment:Testing performed by : [address], [address] RDW CV 15.6(H) 11.1 - 14.9 % [facility] (CR) Comment:Testing performed by : [address], [address] RDW SD 49.2(H) 35.7 - 48.1 fL [facility] (CR) Comment:Testing performed by : [address], [address] NRBC abs 0.00 0.00 - 0.01 K/cumm SUJATA FARIAS (CR) Comment:Testing performed by : [address], [address] Blood 05/11/2024 10:0 7 AM COORDINATOR OF GENETIC SERVICES 05/11/2024 10:07 AM COORDINATOR OF GENETIC SERVICES Jarred Koch MD LAB BLOOD ORDERABLES Final R esult SUJATA FARIAS ([place]) 1 [facility] Department [place] [address] * (ABNORMAL) Urinalysis, microscopic only (05/11/2024 10:07 AM COORDINATOR OF GENETIC SERVICES) WBC, ur 0-5 0 - 5 Comment:Testing performed by : [address], [address] RBC, ur 0-2 0 - 2 /HPF SUJATA FARIAS (CR) Comment:Testing performed by : [address], [address] Epithelial cells, squamous, ur 11-20(A) 0 - 5 /HPF SUJATA FARIAS (CR) Comment:Testing performed by : [facility], [address] [place] [address]., [address] Mucous, ur Present(A) SUJATA Hopkins ([place]) Comment:Testing performed by : [facility], [address] [place] [address], [address] Culture Reflex Comment Reflex conditions for urine culture (WBC >10) not met. SUJATA FARIAS (CR) Comment:Testing performed by : [facility], [address] [place] [address], [address] Urine, clean voided 05/11/2024 10:07 AM COORDINATOR OF GENETIC SERVICES 05/11/2024 12:24 PM COORDINATOR OF GENETIC SERVICES Jarred Koch MD LAB URINE ORDERABLES Final R esult Performing Organization Address City/[facility]/ZIP Co de Phone Number SUJATA FARIAS ([place]) 1 [facility] [place] [address] * (ABNORMAL) Hemoglobin A1c (05/11/2024 10:07 AM COORDINATOR OF GENETIC SERVICES) [facility] Hgb A1C 6.3(H) 4.0 - 5.6 % Comment:Testing performed by : [facility], [address] [place] [address], [address] Estimated Average Glucose 134 mg/dL SUJATA FARIAS (CR) Comment: The ADA recommends reporting an estimated Average Glucose (eAG) with all Hemoglobin A1c results using the equation derived from a study of 507 normal and diabetic adults. Minority populations were underrepresented and children were not included. (Diabetes Care 31:3708-6129, 2008). The eAG is not equivalent to a fasting glucose. Testing performed by: [facility], [address] [place] [address], [address] Blood 05/11/2024 10:0 7 AM COORDINATOR OF GENETIC SERVICES 05/11/2024 10:07 AM COORDINATOR OF GENETIC SERVICES Jarred Koch MD LAB BLOOD ORDERABLES Final R esult Performing Organization Address City/[facility]/ZIP Co de Phone Number SUJATA FARIAS ([place]) 1 [facility] [place] [address] * (ABNORMAL) Basic metabolic panel (05/11/2024 10:07 AM COORDINATOR OF GENETIC SERVICES) Sodium 142 135 - 145 mmol/L Comment:Testing performed by : [facility], [address] [place] [address]., [address] Potassium, pl 3.7 3.3 - 4.9 mmol/L [facility] (CR) Comment:Testing performed by : [facility], [address] [place] [address], [address] Chloride 101 97 - 110 mmol/L [facility] (CR) Comment:Testing performed by : [facility], [address] [place] [address], [address] CO2 27 22 - 32 mmol/L [facility] (CR) Comment:Testing performed by : [address], [address] Anion gap 14 2 - 15 mmol/L [facility] (CR) Comment:Testing performed by : [address], [address] BUN 14 6 - 25 mg/dL [facility] (CR) Comment:Testing performed by : [address], [address] Creatinine 0.51(L) 0.60 - 1.10 mg/dL [facility] (CR) Comment:Testing performed by : [address], [address] Glucose 130 70 - 199 mg/dL CERNER [...] was last revised 2022. Testing performed by: [address], [address] Calcium 9.2 8.5 - 10.3 mg/dL [facility] (CR) Comment:Testing performed by : [facility], [id number] [place] [address], [place]., [address] Blood 05/11/2024 10:0 7 AM COORDINATOR OF GENETIC SERVICES 05/11/2024 10:07 AM COORDINATOR OF GENETIC SERVICES Jarred Koch MD LAB BLOOD ORDERABLES Final R esult SUJATA JARRETT ([place]) 1 [facility] Department [place] [address] * Screening Mammogram Bilateral W Andrew (01/16/2024 [...] history of: screening Osteoporosis screening Post menopausal Lightout Examiner/Model: Ultora Discovery SL (S/N [id number]) CLINICAL INFORMATION: Current height: 61 inches Maximum [...] Filemon Albert M.D. MF: SHERYL Report ID: [id number] Reading Location: [place] [address] Procedure Note Filemon Albert MD - 01/16/2024 EXAM DESCRIPTION: DEXA AXIAL SKELETON BONE DENSITY 1 OR MORE SITES REASON FOR STUDY: 68 y/o year old F with given history of: screening Osteoporosis screening Post menopausal Lightout Examiner/Model: SocialMedia305 (S/N 72025) CLINICAL INFORMATION: Current height: 61 inches Maximum [...] Filemon Albert M.D. MF: SHERYL Report ID: [id number] Reading Location: [place] [address] us Charlie Mtz MD IMG DXA PROCEDURES [...] Lux Sin M.D. AM: AM Report ID: [id number] Reading Location: [place] [address] Procedure Note Lux Sin MD - 07/14/2023 [...] Lux Sin M.D. AM: AM Report ID: [id number] Reading Location: [id number] Charlie Mtz MD IMG CT PROCEDURES Final R esult * COLONOSCOPY (05/22/2019 10:39 AM COORDINATOR OF GENETIC SERVICES) Anatomical Region Laterality Modality Other Narrative Procedure Note Marlon Cronin MD - 05/22/2019 10:39 AM CST [facility] Patient Name: Brittanie Gambino Procedure Date: 05/22/2019 10:39 AM Date of : 1955 Admit Type: Outpatient Age: 63 Gender: Female Attending MD: Marlon Cronin M.D. Room: [facility] ENDOSCOPY ROOM 2 Note Status: Finalized [...] scope was passed under direct vision.The Colonoscope [id number] was introducedthrough the anus and advanced to [...] malignant neoplasm of colon CPT copyright 2017 [employer]. All rights reserved. The codes documented in this report are preliminary and upon design assistant reviewmay be revised to meet current compliance requirements. Recognized by the [employer] for promoting quality in endoscopy us Marlon Cronin MD ENDOSCOPY PROCEDURES Final Re sult * Hepatitis C antibody (05/18/2019 10:48 AM COORDINATOR OF GENETIC SERVICES) Hep C Ab Negative Negative SUJATA FARIAS ([place]) Comment:Testing performed by : [facility], [address] [place] [address]., [address] Blood specimen (specimen) 05/18/2019 10:48 AM COORDINATOR OF GENETIC SERVICES 05/18/2019 1:38 PM COORDINATOR OF GENETIC SERVICES us Sydney Tompkins NP LAB MICROBIOLOGY - GENERAL O RDERABLES Final Result SUJATA FARIAS ([place]) 1 [facility] [place] [address] from Last 3 Months or Most Recently Relevant to Health Maintenance Insurance MEDICARE MEDICARE [facility] MEDICARE [facility] Advance Directives For more information, please contact: [phone] * Full Code (Latest Code Status on [...] 10:14 AM 05/22/2019 10:[address] Judge Relationship Specialty Start Date End Date Charlie Mtz MD [address] [place] [address] PCP - General Family Medicine 05/28/21 Sintia Santoyo NP Nurse Practitioner Obstetrics and Gynecology 07/13/18 Davey Myles NP Nurse Practitioner Family Practice 10/16/20
--- OUTSIDE RECORDS SUMMARY | 2024-08-01 21:20 | XMS_ITS | Clinical Summary ---
Author Organization [facility] Address [address] [place] [address] Phone Care Team Providers Care Renewal Specialist Name Role Phone Unavailable Unavailable Unavailable Reason for Visit and Chief Complaint gynecologic annual exam - The Chief Complaint is: Annual Problems Includes: Problems addressed during this encounter and other active Problems All Visits Onset Date Resolved Date Provider Condition S tatus Chronic Obstructive Pulmonary Disease 11/17/2018 ROWAN INGRAM NP-BC Active Last Documented On 9 2:25PM ; [facility] Previous Colposcopy 01/15/2013 ROWAN INGRAM MASTER BLACK BELT-BC Active Last Documented On 3 12:53PM ; [facility] Note: - FAIZAN! HYPERLIPIDEMIA NEC/NOS 01/20/2012 CE BIRCH MD Active Last Documented On 2 3:01PM ; [facility] HYPERTENSION NOS 12/09/2011 CE BIRCH MD Ac tive Last Documented On 2 10:05AM ; [facility] Plan of Treatment - Follow-up visit 1 year or as needed - Last Documented On 11/16/2017 1:10PM ; [facility] - Clinical summary provided to patient - Last Documented On 11/16/2017 1:10PM ; [facility] Instructions to patient Instructions for patient : B reast Self Exam discussed Last Documented On 8 12:16PM ; [facility] Lose weight Last Documented On 8 12:17PM ; [facility] Colonoscopy Handout given to patient Last Documented On 8 12:17PM ; [facility] Education and Decision Aids were provided during visit for: Patient Education: Daily rashi cium and vitamin D Last Documented On 8 12:16PM ; [facility] Patient Education: weight be aring exercise Last Documented On 8 12:16PM ; [facility] Smoking cessation advised Last Documented On 8 12:47PM ; [facility] Assessments Includes: Assessments from this encounter Findings - NORMAL FEMALE EXAM - Last Documented On 11/16/2017 1:10PM ; [facility] - Screening Malig. Neoplasm [...] On 8 12:42PM By DONALDO DOYLE ; [facility] Biotin 5000MCG Oral Capsule 11/16/2017 Provider: Diagnosis: Last Documented On 8 12:42PM By DONALDO DOYLE ; [facility] Fish Oil 1000MG Oral Capsule 11/16/2017 Provider : Diagnosis: Last Documented On 8 12:42PM By DONALDO DOYLE ; [facility] Csozvyxqnl-Lghwsuwnhf-QLBZ 40-10-25MG Oral Tablet 11/2017 Provider: Diagnosis: Last Documented On 8 12:43PM By DONALDO DOYLE ; [facility] Welchol 625 MG OR TABS 01/15/2013 Provider: Diagnosis: Last Documented On 01/15/2013 1:05PM By DONALDO DOYLE ; [facility] Bystolic 5 MG OR TABS 12/09/2011 Provider: Diagnosis: Last Documented On 12/09/2011 10:03AM By AV CORCORAN ; [facility] Spiriva HandiHaler 18 MCG [...] Last Documented: On 11/16/2017 12:54P M ; [facility] Results Includes: Results discussed during this encounter No Results Recorded For Specified Dates History of Present Illness Includes: History of Present Illness from this encounter HPI PREM GAMBINO is a 62 year old female. - Medication list reviewed - PRIMARY CARE PROVIDER : Dr Turcios Social History Description Last Updated Alcohol use 11/16/2017 Last Documented On 8 1:10PM ; [facility] In monogamous relationship 11/16/2017 Last Documented On 8 1:10PM ; [facility] Non-smoker 11/16/2017 Last Documented On 8 1:10PM ; [facility] Not using drugs 11/16/2017 Last Documented On 8 1:10PM ; [facility] Sexually active with 1 partners in the l ast year 11/16/2017 Last Documented On 8 1:10PM ; [facility] Smoking status : Current everyday smoker 11/16/2017 Last Documented On 8 1:10PM ; [facility] Moravian affiliation [employer] 8 Last Documented On 8 1:10PM ; [facility] Procedures and Surgical History Includes: Procedures from this encounter Procedures Code Diagnosis Performing Provider Service L ocation Service Date low fat diet Last Documented On 8 12:17PM ; [facility] fecal occult blood test was negative [address] Last Documented On 8 12:16PM ; [facility] normal history of Pap smear of cervix Last Documented On 8 12:56PM ; [facility] Cervical Pap Smear performed [id number] Last Documented On 8 12:17PM ; [facility] Surgical History Last Updated Surgical / procedural histor y orthroscopic left knee surg ~d&c ~bile duct 11/16/2017 Last Documented On 8 1:10PM ; [facility] Dilation + Curettage 11/16/2017 Last Documented On 8 1:10PM ; [facility] Medical History Includes: Medical History addressed during this encounter Description Last Updated History of complete colonoscopy [address] chaney repeat in 10 years 11/16/2017 Last Documented On 8 1:10PM ; [facility] Result: normal @cne 11/16/2017 Last [...] Last Documented On 9 2:23PM ; [facility] Codeine Allergy 06/09/2009 Active Last Documented On 9 2:23PM ; [facility] Encounters Encounter Provider Location Date Check-In Time Check-Out Time Diagnosis NEW REIMBURSEMENT DIRECTOR EXAM ROWAN INGRAM [facility] SHIFT STACKER 11/17/19 18 11:59AM 1:09PM Screening Malig. Neoplasm Rectum,Normal Female Exam Clinical Notes Includes: Clinical Notes from this encounter No Clinical Notes Recorded
--- OUTSIDE RECORDS SUMMARY | 2024-08-01 21:20 | XMS_ITS | Clinical Summary ---
Author Organization [facility] Address [address] [place] [address] Phone Care Team Providers Care Communications Programmer Name Role Phone Unavailable Unavailable Unavailable Reason for Visit and Chief Complaint gynecologic procedure : endometrial biopsy - The Chief Complaint is: EMB Problems Includes: Problems addressed during this encounter and other active Problems All Visits Onset Date Resolved Date Provider Condition S tatus Chronic Obstructive Pulmonary Disease 11/17/2018 ROWAN INGRAM NP-BC Active Last Documented On 9 2:25PM ; [facility] Previous Colposcopy 01/15/2013 ROWAN INGRAM [employer]-BC Active Last Documented On 3 12:53PM ; [facility] Note: - FAIZAN! HYPERLIPIDEMIA NEC/NOS 01/20/2012 CE BIRCH MD Active Last Documented On 2 3:01PM ; [facility] HYPERTENSION NOS 12/09/2011 CE BIRCH MD Ac tive Last Documented On 2 10:05AM ; [facility] Plan of Treatment - Clinical summary provided to patient - Last Documented On 02/23/2019 10:55AM ; [facility] Call if any episodes of post menopausal bleeding - assuming bx results from today are WNL. Advised f/u with pcp if right lower quadrant pain recurs - denies today. - Last Documented On 02/23/2019 10:55AM ; [facility] Education and Decision Aids were provided during visit for: INFORMED CONSENT DISCUSSION: Endometrial biopsy was discussed in detail including discomfort, insufficient specimen with need to repeat test, and rare incidence of uterine perforation. Patient expressed understanding of the above and consented to the procedure Last Documented On 9 10:32AM ; [facility] Assessments Includes: Assessments from this [...] On 9 10:32AM ; [facility] Medical Equipment - [...] By DONALDO DOYLE ; [facility] Fetzima 80MG Oral Capsule Extended Release 24 Hour 11/2017 Provider: Diagnosis: Last Documented On 8 12:42PM By DONALDO DOYLE ; [facility] Biotin 5000MCG Oral Capsule 11/16/2017 Provider: Diagnosis: Last Documented On 8 12:42PM By DONALDO DOYLE ; [facility] Fish Oil 1000MG Oral Capsule 11/16/2017 Provider : Diagnosis: Last Documented On 8 12:42PM By DONALDO DOYLE ; [facility] Hlnvdmevoo-Kvebfjcabr-UUMG 40-10-25MG Oral Tablet 11/2017 Provider: Diagnosis: Last Documented On 8 12:43PM By DONALDO DOYLE ; [facility] Welchol 625 MG OR TABS 01/15/2013 Provider: Diagnosis: Last Documented On 01/15/2013 1:05PM By DONALDO DOYLE ; [facility] Bystolic 5 MG OR TABS 12/09/2011 Provider: Diagnosis: Last Documented On 12/09/2011 10:03AM By AV CORCORAN ; [facility] Spiriva HandiHaler 18 MCG IN CAPS 12/09/2011 Provide r: Diagnosis: Last Documented On 12/09/2011 10:04AM By AV CORCORAN ; [facility] Past Medications on file Keflex 500 MG OR CAPS 01/30/2008 - 02/06/2008 Provider : Diagnosis: Last Documented On 06/09/2009 12:22PM By VIRIDIANA PINTO ; [facility] Medications Administered Includes: Administered Medications from this encounter No Administered Medications Recorded Vital Signs Includes: Vital Signs from this encounter Vital Name 02/23/2019 10:40A 02/23/2019 10: 33A Blood Pressure Sitting L 130/70 BP Cuff Size Large Height (in) 62 Weight (lb) 190 Body Mass Index (kg/m2) 34.8 Body Surface Area (m2) 1.9 Last Documented: On 02/23/2019 10:40A M ; [facility] On 02/23/2019 10:38AM ; [facility] Results Includes: Results discussed during this encounter No Results Recorded For Specified Dates History of Present Illness Includes: History of Present Illness from this encounter No History of Present Illness Recorded Social History Description Last Updated Alcohol use 02/23/2019 Last Documented On 9 10:55AM ; [facility] Cigarette smoking 02/23/2019 Last Documented On 9 10:55AM ; [facility] In monogamous relationship 02/23/2019 Last Documented On 9 10:55AM ; [facility] Not using drugs 02/23/2019 Last Documented On 9 10:55AM ; [facility] Caodaism affiliation HINDUISM 9 Last Documented On 9 10:55AM ; [facility] Sexually active with 1 partners in the l ast year 02/23/2019 Last Documented On 9 10:55AM ; [facility] Smoking status : Current everyday smoker 02/23/2019 Last Documented On 9 10:55AM ; [facility] Social history unchanged 02/23/2019 Last Documented On 9 10:55AM ; [facility] Procedures and Surgical History Includes: Procedures from this encounter Procedures Code Diagnosis Performing Provider Service Location Service Date endometrial biopsy was performed ~Procedure Note: Done without complications.~Amt of Tissue: Scant with 2 passes~Uterine Sound Measurement: Approximately 6 cm after single tooth tenaculum applied to anterior cervix. Excellent hemostasis with silver nitrate x 2 [id number] Last Documented On 9 10:55AM ; [facility] a transvaginal ultrasound of the [place]ris l [id number] Last Documented On 9 10:32AM ; [facility] no uterine enlargement Last Documented On 9 10:32AM ; [facility] no mass lesion of the uterus Last Documented On 9 10:32AM ; [facility] a [place]vaginal [place] [id number] Last Documented On 9 10:32AM ; [facility] no enlargement of the right ovary Last Documented On 9 10:32AM ; [facility] no enlargement of the left ovary Last Documented On 9 10:32AM ; [facility] no mass on the right ovary Last Documented On 9 10:32AM ; [facility] no mass on the left ovary Last Documented On 9 10:32AM ; [facility] endometrium thickness 7.0 mm Last Documented On 9 10:32AM ; [facility] the cul-de-sac had no fluid present Last Documented On 9 10:32AM ; [facility] Surgical History Last Updated Dilation + Curettage 02/23/2019 Last Documented On 9 10:55AM ; [facility] Surgical / procedural history orthroscop ic left knee surg ~d&c ~bile duct 02/23/2019 Last Documented On 9 10:55AM ; [facility] Medical History Includes: Medical History addressed during this encounter Description Last Updated Last pap smear date 11/17/2018 02/23/2019 Last Documented On 9 10:55AM ; [facility] FREQUENT UTI'S ~D & C 02/23/2019 Last Documented On 9 10:55AM ; [facility] 3 02/23/2019 Last Documented On 9 10:55AM ; [facility] History of a DXA of the lateral lumbar s pine was performed 02/12/2013 02/23/2019 Last Documented On 9 10:55AM ; [facility] History of benign essential hypertension 02/23/2019 Last Documented On 9 10:55AM ; [facility] History of chronic obstructive pulmonary disease 02/23/2019 Last Documented On 9 10:55AM ; [facility] History of complete colonoscopy 2009 Last Documented On 9 10:55AM ; [facility] History of hyperlipidemia 02/23/2019 Last [...] 02/23/2019 Last Documented On 9 10:55AM ; [facility] LMP: 2003 02/23/2019 Last Documented On 9 10:55AM ; [facility] No recent change in medical history 02/09 Last Documented On 9 10:55AM ; [facility] Para 3 02/23/2019 Last Documented On 9 10:55AM ; [facility] Result: normal 02/23/2019 Last Documented On 9 10:55AM ; [facility] Result: normal 02/23/2019 Last Documented On 9 10:55AM ; [facility] Sexually active 02/23/2019 Last Documented On 9 10:55AM ; [facility] Family History Includes: Family History [...] Active Last Documented On 9 2:23PM ; [facility] Codeine Allergy 06/09/2009 Active Last Documented On 9 2:23PM ; [facility] Encounters Encounter Provider Location Date Check-In Time Check-Out Time Diagnosis ENDOMETRIAL BIOPSY ROWAN INGRAM [facility] DISPOSAL OPERATOR 02/24/20 19 10:30AM 11:05AM Clinical Notes Includes: Clinical Notes from this encounter No Clinical Notes Recorded
--- OUTSIDE RECORDS SUMMARY | 2024-08-01 21:21 | XMS_ITS ---
Author Organization [facility] Address [address] [place] [address] Phone Care Team Providers Care Corrosion Control Specialist Name Role Phone Unavailable Unavailable Unavailable Problems Includes: Active, inactive, and resolved Problems All Visits Onset Date Resolved Date Provider Condition S tatus Chronic Obstructive Pulmonary Disease 11/17/2018 ROWAN A NATALY WHNP-BC Active Last Documented On 9 2:25PM ; [facility] Previous Colposcopy 01/15/2013 ROWAN INGRAM WH CUSTOM LEATHER [employer]ODU[employer] MAKER-BC Active Last Documented On 3 12:53PM ; [facility] Note: - FAIZAN! HYPERLIPIDEMIA NEC/NOS 01/20/2012 CE BIRCH MD Active Last Documented On 2 3:01PM ; [facility] HYPERTENSION NOS 12/09/2011 CE BIRCH MD Ac tive Last Documented On 2 10:05AM ; [facility] Plan of Treatment Findings Encounter Date Call if any episodes of post menopausal bleeding - assuming bx results from today are WNL. Advised f/u with pcp if right lower quadrant pain recurs - denies today ENDOMETRIAL BIOPSY with ROWAN INGRAM WHNP-BC 02/23/2019 Last Documented On 9 10:55AM ; [facility] Ordered Clinical summary pro vided to patient ENDOMETRIAL BIOPSY with ROWAN INGRAM WHNP-BC 02/23/2019 Last Documented On 9 10:55AM ; [facility] Ordered Clinical summary pro vided to patient ANNUAL MANAGER WATER EXAM with ROWAN INGRAM WHNP-BC 11/17/2018 Last Documented On 9 2:42PM ; [facility] Ordered Clinical summary pro vided to patient NEW TANKERMAN EXAM with ROWAN INGRAM [facility]- 11/16/2017 Last Documented On 8 1:10PM ; [facility] Ordered follow-up visit 1 ye ar or as needed NEW TANKERMAN EXAM with ROWAN INGRAM [facility]-BC 11/16/2017 Last Documented On 8 1:10PM ; [facility] Ordered Clinical summary pro vided to patient ANNUAL WELL WOMEN EXAM with ROWAN INGRAM [facility]- 01/15/2013 Last Documented On 3 1:17PM ; [facility] Ordered follow-up visit 1 ye ar or as needed ANNUAL WELL WOMEN EXAM with ROWAN INGRAM [facility]- 01/15/2013 Last Documented On 3 1:17PM ; [facility] Ordered Clinical summary pro vided to patient COLPOSCOPY with CE BIRCH MD 01/20/2012 Last Documented On 2 3:34PM ; [facility] Instructions to patient Instructions for patient : B reast Self Exam discussed Last Documented On 9 2:01PM ; [facility] Lose weight Last Documented On 9 2:02PM ; [facility] Colonoscopy Handout given to patient Last Documented On 9 2:02PM ; [facility] Instructions for patient : B reast Self Exam discussed Last Documented On 8 12:16PM ; [facility] Lose weight Last Documented On 8 12:17PM ; [facility] Colonoscopy Handout given to patient Last Documented On 8 12:17PM ; [facility] Instructions for patient : B reast Self Exam discussed Last Documented On 3 12:52PM ; [facility] Lose weight Last Documented On 3 12:52PM ; [facility] Colonoscopy Handout given to patient Last Documented On 3 12:52PM ; [facility] Instructions for patient : B reast Self Exam discussed Last Documented On 2 10:05AM ; [facility] Education and Decision Aids were provided during visit for: INFORMED CONSENT DISCUSSION: Endometrial biopsy was discussed in detail including discomfort, insufficient specimen with need to repeat test, and rare incidence of uterine perforation. Patient expressed understanding of the above and consented to the procedure Last Documented On 9 10:32AM ; [facility] Patient Education: Daily rashi cium and vitamin D Last Documented On 9 2:01PM ; [facility] Patient Education: weight be aring exercise Last Documented On 9 2:01PM ; [facility] Smoking cessation advised Last Documented On 9 2:02PM ; [facility] Patient Education: Daily rashi cium and vitamin D Last Documented On 8 12:16PM ; [facility] Patient Education: weight be aring exercise Last Documented On 8 12:16PM ; [facility] Smoking cessation advised Last Documented On 8 12:47PM ; [facility] Patient counseling : discuss ed with patient importance of f/u re: increased risks of cervical cancer Last Documented On 3 1:17PM ; [facility] Patient Education: Daily rashi cium and vitamin D Last Documented On 3 12:52PM ; [facility] Patient Education: weight be aring exercise Last Documented On 3 12:52PM ; [facility] Smoking cessation advised Last Documented On 3 1:06PM ; [facility] INFORMED CONSENT DISCUSSION: Colposcopy was discussed in detail including risk of post procedure bleeding. Patient is not to have intercourse for 5 days following the procedure. Patient expressed understanding of the above and consented to the procedure Last Documented On 2 3:31PM ; [facility] INFORMED CONSENT DISCUSSION: Endometrial biopsy was discussed in detail including discomfort, insufficient specimen with need to repeat test, and rare incidence of uterine perforation. Patient expressed understanding of the above and consented to the procedure Last Documented On 2 3:33PM ; [facility] STD screening offered and de clined Last Documented On 2 10:05AM ; [facility] Bone Mineral Density Screeni ng guidelines reviewed Last Documented On 2 10:05AM ; [facility] Patient Education: Daily rashi cium and vitamin D Last Documented On 2 10:05AM ; [facility] Patient Education: weight be aring exercise Last Documented On 2 10:05AM ; [facility] Colonoscopy screening guidel ale discussed Last Documented On 2 10:05AM ; [facility] Assessments Includes: Assessments for all patient encounters Findings Encounter Date NORMAL FEMALE EXAM ANNUAL MANAGER WATER EXAM with ROWAN INGRAM [facility] 11/17/2018 Last Documented On 9 2:42PM ; [facility] Screening Malig. Neoplasm Rectum ANNUAL MANAGER WATER EXAM with ROWAN INGRAM [facility]-BC 11/17/2018 Last Documented On 9 2:42PM ; [facility] NORMAL FEMALE EXAM NEW TANKERMAN EXAM with ROWAN ROTH ALBERTO [facility]- 11/16/2017 Last Documented On 8 1:10PM ; [facility] Screening Malig. Neoplasm Rectum NEW TANKERMAN EXAM wi th ROWAN INGRAM [facility]- 11/16/2017 Last Documented On 8 1:10PM ; [facility] NORMAL FEMALE EXAM ANNUAL WELL WOMEN EXAM with Radhika Hopkins NATALY [facility] 01/15/2013 Last Documented On 3 1:17PM ; [facility] Screening Malig. Neoplasm Rectum ANNUAL WELL WOMEN EXAM with ROWAN Hopkins NATALY [facility]- 01/15/2013 Last Documented On 3 1:17PM ; [facility] Assessment of abnormal Pap s mear of cervix COLPOSCOPY with CE BIRCH MD 01/20/2012 Last Documented On 2 3:34PM ; [facility] Assessment of abnormal Pap s mear: atypical glandular cells COLPOSCOPY with CE BIRCH MD 01/20/2012 Last Documented On 2 3:34PM ; [facility] Female pelvic pain NEW TANKERMAN EXAM with CE KAPADIA MD 12/09/2011 Last Documented On 2 10:36AM ; [facility] Routine pelvic exam NEW TANKERMAN EXAM with CE SHEPHERD MD 12/09/2011 Last Documented On 2 10:36AM ; [facility] Screening Malig. Neoplasm Rectum NEW TANKERMAN EXAM wi th CE BIRCH MD 12/09/2011 Last Documented On 2 10:36AM ; [facility] Instructions Includes: Instructions for all patient encounters Instructions to patient Instructions for patient : B reast Self Exam discussed Last Documented On 9 2:01PM ; [facility] Lose weight Last Documented On 9 2:02PM ; [facility] Colonoscopy Handout given to patient Last Documented On 9 2:02PM ; [facility] Instructions for patient : B reast Self Exam discussed Last Documented On 8 12:16PM ; [facility] Lose weight Last Documented On 8 12:17PM ; [facility] Colonoscopy Handout given to patient Last Documented On 8 12:17PM ; [facility] Instructions for patient : B reast Self Exam discussed Last Documented On 3 12:52PM ; [facility] Lose weight Last Documented On 3 12:52PM ; [facility] Colonoscopy Handout given to patient Last Documented On 3 12:52PM ; [facility] Instructions for patient : B reast Self Exam discussed Last Documented On 2 10:05AM ; [facility] Education and Decision Aids were provided during visit for: INFORMED CONSENT DISCUSSION: Endometrial biopsy was discussed in detail including discomfort, insufficient specimen with need to repeat test, and rare incidence of uterine perforation. Patient expressed understanding of the above and consented to the procedure Last Documented On 9 10:32AM ; [facility] Patient Education: Daily rashi cium and vitamin D Last Documented On 9 2:01PM ; [facility] Patient Education: weight be aring exercise Last Documented On 9 2:01PM ; [facility] Smoking cessation advised Last Documented On 9 2:02PM ; [facility] Patient Education: Daily rashi cium and vitamin D Last Documented On 8 12:16PM ; [facility] Patient Education: weight be aring exercise Last Documented On 8 12:16PM ; [facility] Smoking cessation advised Last Documented On 8 12:47PM ; [facility] Patient counseling : discuss ed with patient importance of f/u re: increased risks of cervical cancer Last Documented On 3 1:17PM ; [facility] Patient Education: Daily rashi cium and vitamin D Last Documented On 3 12:52PM ; [facility] Patient Education: weight be aring exercise Last Documented On 3 12:52PM ; [facility] Smoking cessation advised Last Documented On 3 1:06PM ; [facility] INFORMED CONSENT DISCUSSION: Colposcopy was discussed in detail including risk of post procedure bleeding. Patient is not to have intercourse for 5 days following the procedure. Patient expressed understanding of the above and consented to the procedure Last Documented On 2 3:31PM ; [facility] INFORMED CONSENT DISCUSSION: Endometrial biopsy was discussed in detail including discomfort, insufficient specimen with need to repeat test, and rare incidence of uterine perforation. Patient expressed understanding of the above and consented to the procedure Last Documented On 2 3:33PM ; [facility] STD screening offered and de clined Last Documented On 2 10:05AM ; [facility] Bone Mineral Density Screeni ng guidelines reviewed Last Documented On 2 10:05AM ; [facility] Patient Education: Daily rashi cium and vitamin D Last Documented On 2 10:05AM ; [facility] Patient Education: weight be aring exercise Last Documented On 2 10:05AM ; [facility] Colonoscopy screening guideyaz aguilera discussed Last Documented On 2 10:05AM ; [facility] Medical Equipment - Implanted Devices Includes: Current and historical Devices No Medical Equipment Recorded Medications Includes: Current and historical Medications Current Medications (continue as prescribed) Co Q10 100MG Oral Capsule 11/17/2018 Provider: Diagnosis: Last Documented On 9 2:24PM By DESHAWN DOYLE ; [facility] Tribenzor 40-10-25MG Oral Tablet 11/17/2018 Provider : Diagnosis: Last Documented On 9 2:24PM By DESHAWN DOYLE ; [facility] Omeprazole 20MG Oral Tablet Delayed Release 2017 Provider: Diagnosis: Last Documented On 8 12:41PM By DONALDO DOYLE ; [facility] Bystolic 20MG Oral Tablet 11/16/2017 Provider: Diagnosis: Last Documented On 8 12:41PM By DONALDO DOYLE ; [facility] Fetzima 80MG Oral Capsule Extended Release 24 Hour 11/2017 Provider: Diagnosis: Last Documented On 8 12:42PM By DONALDO DOYLE ; [facility] Biotin 5000MCG Oral Capsule 11/16/2017 Provider: Diagnosis: Last Documented On 8 12:42PM By DONALDO DOYLE ; [facility] Fish Oil 1000MG Oral Capsule 11/16/2017 Provider : Diagnosis: Last Documented On 8 12:42PM By DONALDO DOYLE ; [facility] Zegzhjiqjf-Ayzmoabduq-JBBB 40-10-25MG Oral Tablet 11/2017 Provider: Diagnosis: Last Documented On 8 12:43PM By DONALDO DOYLE ; [facility] Welchol 625 MG OR TABS 01/15/2013 Provider: Diagnosis: Last Documented On 01/15/2013 1:05PM By DONALDO DOYLE ; [facility] Bystolic 5 MG OR TABS 12/09/2011 Provider: Diagnosis: Last Documented On 12/09/2011 10:03AM By AV CORCORAN ; [facility] Spiriva HandiHaler 18 MCG IN CAPS 12/09/2011 Provide r: Diagnosis: Last Documented On 12/09/2011 10:04AM By AV CORCORAN ; [facility] Past Medications on file Ergocalciferol 12432PODG Oral Capsule 11/16/2017 - 12/2018 Provider: Diagnosis: Last Documented On 9 2:24PM By DESHAWN DOYLE ; [facility] Tribenzor 40-10-25 MG OR TABS 12/09/2011 - 11/16/2017 Provider: Diagnosis: Last Documented On 8 12:42PM By DONALDO DOYLE ; [facility] Vytorin 10-20 MG OR TABS 12/09/2011 - 01/15/2013 Provi vera: Diagnosis: Last Documented On 01/15/2013 1:05PM By DONALDO DOYLE ; [facility] Keflex 500 MG OR CAPS 01/30/2008 - 02/06/2008 Provider : Diagnosis: Last Documented On 06/09/2009 12:22PM By VIRIDIANA PINTO ; [facility] Medications Administered Includes: Administered Medications in patient's chart No Administered Medications Recorded Results Includes: Results from 08/02/2023 through 08/01/2024 No Results Recorded For Specified Dates History of Present Illness History of Present Illness not supported for this document type No History of Present Illness Recorded Social History Description Last Updated Alcohol use 02/23/2019 Last Documented On 9 10:55AM ; [facility] Cigarette smoking 02/23/2019 Last Documented On 9 10:55AM ; [facility] In monogamous relationship 02/23/2019 Last Documented On 9 10:55AM ; [facility] Not using drugs 02/23/2019 Last Documented On 9 10:55AM ; [facility] Orthodoxy affiliation BUDDHIST 9 Last Documented On 9 10:55AM ; [facility] Sexually active with 1 partners in the l ast year 02/23/2019 Last Documented On 9 10:55AM ; [facility] Smoking status : Current everyday smoker 02/23/2019 Last Documented On 9 10:55AM ; [facility] Social history unchanged 02/23/2019 Last Documented On 9 10:55AM ; [facility] Procedures and Surgical History Surgical History Last Updated Dilation + Curettage 02/23/2019 Last Documented On 9 10:55AM ; [facility] Surgical / procedural history orthroscop ic left knee surg ~d&c ~bile duct 02/23/2019 Last Documented On 9 10:55AM ; [facility] Medical History Includes: Medical History in patient's chart Description Last Updated Last pap smear date 11/17/2018 02/23/2019 Last Documented On 9 10:55AM ; [facility] FREQUENT UTI'S ~D & C 02/23/2019 Last Documented On 9 10:55AM ; [facility] 3 02/23/2019 Last Documented On 9 10:55AM ; [facility] History of a DXA of the lateral lumbar s pine was performed 02/12/2013 02/23/2019 Last Documented On 9 10:55AM ; [facility] History of benign essential hypertension 02/23/2019 Last Documented On 9 10:55AM ; [facility] History of chronic obstructive pulmonary disease 02/23/2019 Last Documented On 9 10:55AM ; [facility] History of complete colonoscopy 2009 Last Documented On 9 10:55AM ; [facility] History of hyperlipidemia 02/23/2019 Last Documented On 9 10:55AM ; [facility] History of menopause lmp more than 5 yrs ago 02/23/2019 Last Documented On 9 10:55AM ; [facility] History of Pap smear done 11/16/201702/09 Last Documented On 9 10:55AM ; [facility] History of screening mammogram was perfo rmed 08/23/2017 02/23/2019 Last Documented On 9 10:55AM ; [facility] LMP: 2003 02/23/2019 Last Documented On 9 10:55AM ; [facility] No recent change in medical history 02/09 Last Documented On 9 10:55AM ; [facility] Para 3 02/23/2019 Last Documented On 9 10:55AM ; [facility] Result: normal 02/23/2019 Last Documented On 9 10:55AM ; [facility] Result: normal 02/23/2019 Last Documented On 9 10:55AM ; [facility] Sexually active 02/23/2019 Last Documented On 9 10:55AM ; [facility] Family History Includes: Family History in patient's chart Description Last Updated Family history unchanged 11/17/2018 Last Documented On 9 2:42PM ; [facility] Maternal history of hypertension mother 11/17/2018 Last Documented On 9 2:42PM ; [facility] Paternal grandmother's histo ry of family history of heart disease pgm-swollen heart 11/17/2018 Last Documented On 9 2:42PM ; [facility] Sororal history of diabetes mellitus sis ter. Mother is borderline 11/17/2018 Last Documented On 9 2:42PM ; [facility] Spouse name: Shayne 01/15/2013 Last Documented On 3 1:17PM ; [facility] Family history of heart disease pgm-swol lindsay heart 01/15/2013 Last Documented On 3 1:17PM ; [facility] Family history of hypertension mother Last Documented On 3 1:17PM ; [facility] Family history of diabetes mellitus sist er. Mother is borderline 12/09/2011 Last Documented On 2 10:36AM ; [facility] Family medical history of high blood pre ssure 06/09/2009 Last Documented On 0 12:27PM ; [facility] Review of Systems Review of [...] Active Last Documented On 9 2:23PM ; [facility] Codeine Allergy 06/09/2009 Active Last Documented On 9 2:23PM ; [facility] Clinical Notes Includes: Signed Clinical Notes starting from 04/30/2022 No Clinical Notes Recorded
--- OUTSIDE RECORDS SUMMARY | 2024-08-01 21:21 | XMS_ITS | Encounter Summary ---
Author Organization [facility] Address [address] [place] [id number] Care Team Providers Care Janitorial Account Manager Name Role Phone Laz Rodríguez MD Primary Care Provider [phone] Jn Mcdonald MD Primary Care Provider [phone] Sydney Tompkins SPORTS DEVELOPMENT OFFICER Primary Care Provider [phone] Sydney Tompkins NP Primary Care Provider [phone] Laz Rodríguez MD Unavailable [phone] Jn Mcdonald MD Unavailable [phone] Sydney Tompkins NP Unavailable [phone] Sintia Santoyo SPORTS DEVELOPMENT OFFICER Unavailable [phone] Marlon Cronin MD Unavailable [phone] Davey Myles SPORTS DEVELOPMENT OFFICER Unavailable [phone] Charlie Mtz MD Primary Care Provider [phone] Denita Jones RN Unavailable [phone] Encounter Details Date Type Department Care Team (Late st Contact Info) Description 02/06/2013 Orders Only [facility] Health Information Management [address] [place] [address] Scanning, Provider Social History Tobacco Use Types Packs/Day Years Used Date Smoking Tobacco: Never Assessed Alcohol Use Standard Drinks/Week Comments No 0 (1 standard drink = 0.6 oz pur e alcohol) Comments Unknown Sex and Gender Information Value Date Recorded Sex Assigned at Not on file Legal Sex Female 3:09 PM [employer] Gender Identity Not on file Sexual Orientation [...] COVID: Suspected 02/22/2020 02/22/2020 02/23/2020 5:41 AM [employer] Respiratory Infection (BRITTNY), contact + droplet Comment:Automatically added due to negative COVID-19 result. 02/23/2020 02/23/2020 03/08/2020 3:0 7 AM [employer] COVID: Suspected 04/28/2020 04/28/2020 04/28/2020 11:48 PM [employer] Respiratory Infection (BRITTNY), contact + droplet Comment:Automatically added due to negative COVID-19 result. 04/28/2020 04/28/2020 05/12/2020 3:0 7 AM [employer] Exposure, COVID-19 Comment:Added automatically based on COVID19 lab answers indicating exposure risk 03/10/2021 03/10/2021 03/25/2021 3:[address] COVID: Suspected 03/10/2021 03/10/2021 03/10/2021 4:53 PM [employer] COVID: Suspected 03/26/2021 03/26/2021 03/26/2021 10:27 PM [employer] COVID: Suspected 10/27/2021 10/27/2021 10/27/2021 11:28 AM CDT COVID19 10/27/2021 10/27/2021 11/06/2021 3:05 AM CDT COVID: Recovered Comment:Added based on recent COVID infection. 11/06/2021 12/03/2021 03/06/2022 3:[address] COVID: Suspected 04/30/2022 04/30/2022 04/30/2022 2:24 PM [employer] COVID: Suspected 03/08/2023 03/08/2023 03/08/2023 11:30 AM [employer] COVID: Suspected 03/12/2023 03/13/2023 03/13/2023 12:59 AM [employer] COVID: Suspected 08/01/2024 08/01/2024 08/01/2024 10:03 AM CDT documented as of this encounter Care Teams Janitorial Account Manager Relationship Specialty Start Date End Date Laz Rodríguez MD [address] [place] [address] PCP - General 10/15/10 10/21/16 Jn Mcdonald MD [address] [place] [address] PCP - General 10/22/16 06/20/18 Sydney Tompkins NP [address] [place] [address] PCP - General Family Medicine 06/21/18 07/10/18 Sydney Tompkins NP [address] [place] [address] PCP - General Family Medicine 07/11/18 05/27/21 Charlie Mzt MD [address] [place] [address] PCP - General Family Medicine 05/28/21 Laz Rodríguez MD [address] [place] [address] 10/22/16 11/21/19 Jn Mcdonald MD [address] [facility] [address] [place] [address] 06/21/18 07/10/18 Sydney Tompkins NP [address] [facility] [address] [place] [address] Family Medicine 07/11/18 07/12/18 Sintia Santoyo NP [address] [facility] [address] [place] [address] Nurse Practitioner Obstetrics and Gynecology 07/13/18 Marlon Cronin MD [address] [facility] [address] [place] [address] Consulting Physician Gastroenterology 07/13/18 10/15/20 Davey Myles NP [address] [facility] [address] [place] [address] Nurse Practitioner Family Practice 10/16/20 Denita Jones RN [address] [place] [address] Continuous Mining Machine Lode Miner 03/17/23 04/19/23 documented as of this encounter
--- OUTSIDE RECORDS SUMMARY | 2024-08-01 21:21 | XMS_ITS | Clinical Summary ---
Author Organization [facility] Address [address] [place] [address] Care Team Providers Care Log Truck Driver Name Role Phone Jn Delgado MD Primary Care Provider [phone] Source Comments [facility],non-owned Affiliates and Associated Physician Practices is amultiple site organization consisting of ambulatory clinics and hospital sitesin [place], [place], [place] and [place]. This disclosure is being madepursuant to the Care Everywhere program and may not contain all information available regarding this patient. Last updated 17.[facility] Allergies Active Allergy Reactions Criticality Noted Date [...] on file Legal Sex Female 5:02 PM POINTING MACHINE OPERATOR Gender Identity Not on file Sexual Orientation Not on file Last Filed Vital Signs Vital Sign Reading Time Taken Comments Blood Pressure 122/60 05/11/2016 6:05 PM POINTING MACHINE OPERATOR Pulse 89 05/11/2016 6:05 PM POINTING MACHINE OPERATOR Temperature 37.2 C (99 F) 05/11/2016 6:05 PM POINTING MACHINE OPERATOR Respiratory Rate - - Oxygen Saturation - - Inhaled Oxygen Concentration - - Weight 90.7 kg (200 lb) 05/11/2016 6:05 PM POINTING MACHINE OPERATOR Height 160 cm (5' 3 ) 05/11/2016 6:05 PM POINTING MACHINE OPERATOR Body Mass Index 35.43 05/11/2016 6:05 PM POINTING MACHINE OPERATOR Plan of Treatment Health Maintenance Due Date [...] complete this topic Insurance SUE Care Teams Log Truck Driver Relationship Specialty Start Date End Date Jn Delgado MD [address] [place] [address] PCP - General Internal Medicine 05/11/16
--- OUTSIDE RECORDS SUMMARY | 2024-08-01 21:21 | XMS_ITS | Encounter Summary ---
Author Organization [facility] Healthcare Address [address] [place] [address] Care Team Providers Care Cna Gna Name Role Phone Sintia Santoyo SPORTS MEDIA Unavailable [phone] Davey Myles SP[employer] Unavailable [phone] Charlie Mtz MD Primary Care Provider [phone] Encounter Details Date Type Department Care Team (Late st Contact Info) Description 07/27/2024 Results [facility] [address] [address] Charlie Mtz MD [address] [place] [address] Social History Tobacco Use Types Packs/Day Years Used Date Smoking Tobacco: Former Cigarettes 0.8 28 0 06/25/1993 - 06/25/2021 Smokeless Tobacco: Former Quit: 06/25/2021 Alcohol Use Standard Drinks/Week Comments No 0 (1 standard drink = 0.6 oz pur e alcohol) [facility] Utilities Answer Date Recorded In the past 12 months has [employer], gas, oil, or water company threatened [...] often do you attend chur ch or rastafari services? More than 4 times per year 03/18/2023 Do you belong to any clubs o r organizations such as samaritan groups, unions, fraternal or athletic groups, or [...] on file Legal Sex Female 3:09 PM ROOM ATTENDANTS Gender Identity Not on file Sexual Orientation [...] documented as of this encounter Care Teams Cna Gna Relationship Specialty Start Date End Date Charlie Mtz MD [address] [place] [address] PCP - General Family Medicine 05/28/21 Sintia Santoyo NP Nurse Practitioner Obstetrics and Gynecology 07/13/18 Davey Myles NP Nurse Practitioner Family Practice 10/16/20 documented as of this encounter
--- OUTSIDE RECORDS SUMMARY | 2024-08-01 21:21 | XMS_ITS | Encounter Summary ---
Author Organization [facility] Healthcare Address [address] [place] [address] Care Team Providers Care Bottom Turner Name Role Phone Sydney Tompkins NP Primary Care Provider [phone] Sintia Santoyo NP Unavailable [phone] Marlon Cronin MD Unavailable [phone] Davey Myles NP Unavailable [phone] Charlie Mtz MD Primary Care Provider [phone] Denita Jones RN Unavailable [phone] Encounter Details Date Type Department Care Team (Late st Contact Info) Description 03/14/2020 Telephone [facility] [address] [place] [address] Marilin Galan RT Social History Tobacco Use [...] on file 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 04/28/2020 04/28/2020 05/12/2020 3:0 7 AM FERTILIZER LOADER Exposure, COVID-19 Comment:Added automatically based on COVID19 lab answers indicating exposure risk 03/10/2021 03/10/2021 03/25/2021 3:[address] COVID: Suspected 03/10/2021 03/10/2021 03/10/2021 4:53 PM FERTILIZER LOADER COVID: Suspected 03/26/2021 03/26/2021 03/26/2021 10:27 PM FERTILIZER LOADER COVID: Suspected 10/27/2021 10/27/2021 10/27/2021 11:28 AM CDT COVID19 10/27/2021 10/27/2021 11/06/2021 3:05 AM CDT COVID: Recovered Comment:Added based on recent COVID infection. 11/06/2021 12/03/2021 03/06/2022 3:[address] COVID: Suspected 04/30/2022 04/30/2022 04/30/2022 2:24 PM FERTILIZER LOADER COVID: Suspected 03/08/2023 03/08/2023 03/08/2023 11:30 AM FERTILIZER LOADER COVID: Suspected 03/12/2023 03/13/2023 03/13/2023 12:59 AM FERTILIZER LOADER COVID: Suspected 08/01/2024 08/01/2024 08/01/2024 10:03 AM CDT documented as of this encounter Care Teams Bottom Turner Relationship Specialty Start Date End Date Sydney Tompkins NP PCP - General Family Medicine 07/11/18 05/27/21 [place] [address] PCP - General Family Medicine 05/28/21 Sintia Santoyo NP Nurse Practitioner Obstetrics and Gynecology 07/13/18 Marlon Cronin MD Consulting Physician Gastroenterology 07/13/18 10/15/20 Davey Myles NP Nurse Practitioner Family Practice 10/16/20 Denita Jones RN [address] [place] [address] DR [address]LO[address] [place] [phone] Loan Funder 03/17/23 04/19/23 documented as of this encounter
--- OUTSIDE RECORDS SUMMARY | 2024-08-01 21:21 | XMS_ITS | Encounter Summary ---
Author Organization [facility] Healthcare Address [address] [place] [address] Care Team Providers Care Paper Bags Sewing Machine Operator Name Role Phone Sintia Santoyo METAL BUGGY OPERATOR Unavailable [phone] Davey Myles METAL BUGGY OPERATOR Unavailable [phone] Charlie Mtz MD Primary Care Provider [phone] Reason for Visit * Reason Comments Shortness of Breath Encounter Details Date Type Department Care Team (Latest Contact Info) Description 08/01/2024 9:10 AM CDT - 08/01/2024 7:50 PM CDT Hospital Encounter [facility] Emergency Department [address] [id number] Erin Irizarry MD [address] [place] [address] [place] [address] Mali Acharya MD [address] [place], [place] [id number] Other acute pulmonary embolism without acute cor pulmonale (HCC) (Primary Dx) Discharge Disposition: Discharge to a critical access hospital Social History Tobacco Use Types Packs/Day Years Used Date Smoking Tobacco: Former Cigarettes 0.8 28 0 06/25/1993 - 06/25/2021 Smokeless Tobacco: Former Quit: 06/25/2021 Alcohol Use Standard Drinks/Week Comments No 0 (1 standard drink = 0.6 oz pur e alcohol) [facility] Utilities Answer Date Recorded In the past 12 months has [employer], gas, oil, or water [employer] threatened to shut off services in your [...] often do you attend chur ch or muslim services? 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 female patient admitted to [facility] ED-ED05. Pharmacy service has been consulted for [...] doses accordingly. Thank you, Doug Del Cid [facility] Pharmacy department [phone] documented in this encounter ED Notes * Catherine Jernigan RN - 08/01/2024 9:04 AM CDT Pt arrives to ED via [facility] EMS from home for SOB x 2 [...] Molly l Result SUJATA FARIAS (CR) 1 [facility] [place] [address] * Troponin T high-sensitivity 4-hour (08/01/2024 2:07 PM CDT) Trop T hs 9 <=14 ng/L Comment: Interpretive Data For further hscTnT resources including the diagnostic algorithm and an aid in interpretation, copy and paste this link: https://nrl.testcatalog.org/show/hsTrop Current Interpretive Data last revised 2020. Trop T hs delta -1 ng/L [facility] ([place]) Trop T hs interp Insignificant [facility] ([place]) Blood 08/01/2024 2:07 PM CDT 08/01/2024 2:12 PM CDT Erin Irizrary MD LAB BLOOD ORDERABLES Molly l Result SUJATA FARIAS ([place]) [address] [place] [address] * Procalcitonin (08/01/2024 11:07 AM CDT) Procalcitonin 0.05 <=0.25 ng/mL Comment:Testing performed by : [facility], [facility], [place]., [address] Blood 08/01/2024 11:0 7 AM CDT 08/01/2024 3:52 PM CDT Erin Irizarry MD LAB BLOOD ORDERABLES Molly l Result [facility]ATA FARIAS ([place]) [address] [place] [address] * Troponin T high-sensitivity 2-hour (08/01/2024 11:07 [...] BLOOD ORDERABLES Molly l Result [facility] ([place]) 1 [facility] [place] [address] * CT Chest PE (CTA) W Contrast [...] Riley Harrington M.D. CH: [place] Report ID: [id number] Reading Location: [id number] Procedure Note Riley Harrington Jr., MD - [...] Riley Harrington M.D. CH: [place] Report ID: [id number] Reading Location: [id number] Erin Irizarry MD IMG CT PROCEDURES [...] Riley Harrington M.D. CH: [place] Report ID: [id number] Reading Location: [id number] Procedure Note Riley Harrington Jr., MD - [...] Riley Harrington M.D. CH: [place] Report ID: [id number] Reading Location: [id number] Erin Irizarry MD [facility] US PROCEDURES Final R esult * XR [...] Jeremy Goetz M.D. INDY: INDY Report ID: [id number] Reading Location: [id number] Procedure Note Jeremy Goetz MD - 08/01/2024 EXAM DESCRIPTION: XR CHEST 1 VIEW REASON FOR STUDY: Acute shortness of breath for 2 days in a patient with history of COPD. Complaint of ecchymosis, redness, and warmth to rightlower extremity status post recent right knee replacement. TECHNIQUE: Single frontal radiographic view(s) of the chest. COMPARISON: Chest radiograph 03/13/2023; CT lung cancer efwmrndqs22/03/2024 FINDINGS: LUNGS: No focal consolidation. No pleural effusion. No pneumothorax. Emphysematous changes. HEART/MEDIASTINUM: Stable cardiomediastinal silhouette better evaluatedon prior CT imaging. LINES/TUBES: None. BONES: No acute osseous abnormality. IMPRESSION: No radiographic evidence of acute cardiopulmonary process. THIS IS AN ELECTRONICALLY VERIFIED FINAL REPORT 08/01/2024 9:51 AM - Electronically signed by Jeremy Goetz M.D. INDY: INDY Report ID: [id number] Reading Location: [place] [address] Erin Irizarry MD IMG XR PROCEDURES Final [...] BLOOD ORDERABLES Molly mukherjee Result SUJATA FARIAS ([place]) 1 [facility] Department of Laboratories [place], [place] [id number] * (ABNORMAL) Differential, auto (08/01/2024 9:15 AM CDT) Neutrophil abs 9.79(H) 1.50 - 6.50 K/cumm Imm gran abs 0.11(H) 0.00 - 0.10 K/cumm [facility] ([place]) Lymphocyte abs 1.45 0.80 - 3.30 K/cumm [facility] ([place]) Monocyte abs 0.80 0.20 - 0.80 K/cumm [facility] ([place]) Eosinophil abs 0.11 0.00 - 0.50 K/cumm [facility] ([place]) Basophil abs 0.04 0.00 - 0.10 K/cumm [facility] ([place]) Neutrophil pct 79.6 % [facility] ([place]) Comment: Interpretive Data Percent cell count reference ranges are not reported, since discordance with absolute values may lead to misinterpretation of CBC data. Current Interpretive Data was last revised on 2017. Imm gran pct 0.9 % [facility] ([place]) Comment: Interpretive Data Percent cell count reference ranges are not reported, since discordance with absolute values may lead to misinterpretation of CBC data. Current Interpretive Data was last revised on 2017. Lymphocyte pct 11.8 % [facility] ([place]) Comment: Interpretive Data Percent cell count reference ranges are not reported, since discordance with absolute values may lead to misinterpretation of CBC data. Current Interpretive Data was last revised on 2017. Monocyte pct 6.5 % [facility] ([place]) Comment: Interpretive Data Percent cell count reference ranges are not reported, since discordance with absolute values may lead to misinterpretation of CBC data. Current Interpretive Data was last revised on 2017. Eosinophil pct 0.9 % [facility] ([place]) Comment: Interpretive Data Percent cell count reference [...] ORDERABLES Molly l Result Performing Organization Address [facility]/ZIP Co de Phone Number SUJATA FARIAS ([place]) 1 [facility] [place] [address] * (ABNORMAL) D-dimer, quantitative (08/01/2024 9:15 AM [...] BLOOD ORDERABLES Molly l Result SUJATA FARIAS ([place]) 1 [facility] [place] [address] * (ABNORMAL) Protime-INR (08/01/2024 9:15 AM CDT) PT 15.1(H) 9.7 - 13.0 sec [facility] ([place]) INR 1.39(H) 0.90 - 1.20 [facility] ([place]) Comment: Interpretive data Oral anticoagulant therapeutic ranges: Venous thromboembolism prophylaxis or treatment: 2.0-3.0 CARDIOLOGY Standard range: 2.0-3.0 High-intensity range: 2.5-3.5 Refer to indication-specific guidelines for appropriate target ranges for prosthetic heart valve replacement. Current interpretive data was last revised on 2019. Blood 08/01/2024 9:15 AM CDT 08/01/2024 9:20 AM CDT Erin Irizarry MD LAB BLOOD ORDERABLES Molly l Result Performing Organization Address [facility] Co de Phone Number [facility] ([place]) [address] [place] [address] [place] [address] * (ABNORMAL) aPTT (08/01/2024 9:15 AM CDT) aPTT 24(L) 28 - 38 sec [facility] ([place]) Comment: Interpretive Data Heparin therapeutic range: 66.0 - 100.0 seconds. Range based on correlation with therapeutic heparin activity range of 0.3 - 0.7 Units/mL. Current interpretive data was last revised on 2023. Blood 08/01/2024 9:15 AM CDT 08/01/2024 9:20 AM CDT Erin Irizarry MD LAB BLOOD ORDERABLES Molly l Result Performing Organization Address City/[facility]/ZIP Co de Phone Number SUJATA [facility] ([place]) [address] [facility] [place] [address] * Troponin T high-sensitivity series (baseline, 2hr, [...] MD LAB BLOOD ORDERABLES Molly l Result [facility] ([place]) [address] [place] [address] * (ABNORMAL) Sepsis Lactate w/ Reflex (08/01/2024 9:15 AM CDT) [facility] Sepsis Lactate 2.4(H) 0.7 - 2.0 mmol/L Blood 08/01/2024 9:15 AM CDT 08/01/2024 9:20 AM CDT Erin Irizarry MD LAB BLOOD ORDERABLES Molly l Result Performing Organization Address City/[facility] Co de Phone Number [facility] ([place]) [address] [place] [address] * Influenza A/B, RSV, and COVID-19 PCR Nasopharyngeal (08/01/2024 9:15 AM CDT) [facility] COVID-19 RNA Negative Negative Influenza A RNA Negative Negative [facility] ([place]) Influenza B RNA Negative Negative [facility] ([place]) RSV RNA Negative Negative [facility] ([place]) Comment: Interpretive data: Testing performed by [facility]. This test is performed using the [employer] Xpert Xpress CoV-2/Flu/RSV plus assay. This is a multiplex, real- time reverse transcriptase PCR assay intended for the qualitative detection of nucleic acid from SARS-CoV-2, influenza A, influenza B, and respiratory syncytial virus. This assay has been cleared by the [place] Food and Drug administration. The performance characteristics have been verified by the [facility]. Results must be considered in the clinical context, and a negative result does not rule out infection. Interpretive Data last revised 2023 Nasopharyngeal 08/01/2024 9: 15 AM CDT 08/01/2024 9:20 AM CDT Narrative [facility] ([place]) - 08/01/2024 10:02 AM CDT Is the Patient experiencing symptoms consistent with COVID?->Yes us Erin Irizarry MD LAB MICROBIOLOGY - GENERA L ORDERABLES Final Result [facility] ([place]) 1 [facility] Department [place] [address] * (ABNORMAL) Comprehensive metabolic panel (08/01/2024 9:15 AM CDT) Sodium 140 135 - 145 mmol/L Potassium, pl 3.1(L) 3.3 - 4.9 mmol/L [facility] ([place]) Chloride 99 97 - 110 mmol/L [facility] ([place]) CO2 26 22 - 32 mmol/L [facility] ([place]) Anion gap 15 2 - 15 mmol/L [facility] ([facility]) BUN 18 6 - 25 mg/dL [facility] ([place]) Creatinine 0.59(L) 0.60 - 1.10 mg/dL [facility] ([place]) Comment:Icteric sample, test results may be affected. Glucose 155 70 - 199 mg/dL [facility] ([place]) Comment: Interpretive Data Fasting glucose >/= 126 [...] Molly l Result [facility] ([facility]) 1 [facility] [place] [address] * (ABNORMAL) CBC with auto differential (08/01/2024 [...] 17.2(H) 11.1 - 14.9 % [facility] ([facility]) RDW SD 53.5(H) 35.7 - 48.1 fL [facility] ([facility]) NRBC abs 0.04(H) 0.00 - 0.01 K/cumm [facility] ([place]) Blood 08/01/2024 9:15 AM CDT 08/01/2024 9:20 AM CDT Erin Irizarry MD LAB BLOOD ORDERABLES Molly yaz Result [facility]ATA FARIAS ([place]) 1 [facility] [place] [address] * (ABNORMAL) Pro B-type natriuretic peptide (08/01/2024 [...] ORDERABLES Molly l Result Performing Organization Address City/[facility]/ZIP Co de Phone Number [facility] [place] [address] [place] [address] [place] [address] * ECG 12 lead (08/01/2024 9:07 AM CDT) 08/01/2024 9:07 AM CDT Narrative [facility] - 08/01/2024 12:18 PM CDT Vent Rate: 72 bpm RR Interval: 828 msec MO Interval: 143 msec QRS Duration: 102 msec QT Interval: 346 msec QTC Interval: 370 msec P-R-T [place]: 80 - 80 - -31 degrees IMPRESSION: SINUS RHYTHM NONSPECIFIC ST \T\ T-WAVE ABNORMALITY ABNORMAL ECG NO CHANGE FROM PREVIOUS TRACING NOTED Electronically Signed By: Matthew Hunt MD Erin Irizarry MD ECG ORDERABLES Final Res ult Performing Organization Address [facility] Co de Phone Number [facility] documented in this encounter Visit Diagnoses Diagnosis [...] solution 3 mL 3 mL, nebulization, Once (respiratory therapist), On Tue08/01/24 at 0934, For 1 dose [...] 3 mL (COMPLETED) 3 mL, nebulization, Once (respiratory therapist), On Tue08/01/24 at 0934, For 1 dose 1047 (Given - Provid er: Nelly Christiansen, LINEN CONTROLLER) methylPREDNISolone sodium succinate (SOLU-medrol) preservative free injection [...] documented as of this encounter Care Teams Paper Bags Sewing Machine Operator Relationship Specialty Start Date [place] [address] PCP - General Family Medicine 05/28/21 Sintia Santoyo NP Nurse Practitioner Obstetrics and Gynecology 07/13/18 Davey Myles NP Nurse Practitioner Family Practice 10/16/20 documented as of this encounter
--- NOTE | 2024-08-01 22:10 | P.HP_ITS ---
H&P: HPI History of Present Illness Date/Time: 08/01/24 22:10 Chief Complaint: Right knee redness and swelling after total knee arthroplasty, pulmonary embolism. Narrative: This is a very pleasant 69-year-old female with chronic obstructive pulmonary disease, emphysema, obstructive sleep apnea CPAP, hypertension, hyperlipidemia, type 2 diabetes mellitus, depression, anxiety, and arthritis who is being directly admitted to the telemetry floor the emergency department at [facility] for consultation with Dr. Koch due to concerns for postop infection as well as treatment of a pulmonary embolism. Her right knee was replaced on 07/24/2024 and she admits that she has been struggling a bit at home since that time. She lives alone but does have some help. Since surgery she has had swelling and bruising in the right leg but that seems to be getting worse and more recently she has developed warmth and redness of the lower right leg. Overall she has just been fatigued and worn out with occasional nausea which he believes is due to the pain medication. Over the last 3 days she has been feeling short of breath and has had intermittent chest tightness. Due to ongoing symptoms she went to the ER today at [facility]. She denies fever, pleuritic pain, palpitations, syncope, near syncope, vomiting, diarrhea, dysuria, and decrease in urine output. In the ED: Vital signs on arrival include a temperature of 98.9?, pulse 73, respiratory rate 20, blood pressure 141/63, SpO2 75% on room air. Labs were significant for a normal troponin, proBNP 1049, lactic acid 1.2, D-dimer 7948, sodium 140, potassium 3.1, BUN 18, creatinine 0.59, total bilirubin 3.0, AST 18, ALT 20, alkaline phosphatase 108, WBC count 12.3, hemoglobin 10.4, hematocrit 33.2, platelet 213. Chest CTA showed acute pulmonary embolism in the right upper lobe segmental arteries and a medial left upper lobe segmental artery with no evidence of pulmonary infarction or right heart strain, moderate emphysema, and trace pleural effusions. Right lower extremity venous Doppler ultrasound showed no evidence of DVT in the visualized vessels however the distal femoral vein and calf veins could not be assessed. She was given enoxaparin 1 mg/kg as well as cefepime and vancomycin for possible infection. Transfer was initiated to [place] due to concerns for possible infection in that right knee. At the time my evaluation she is resting comfortably and has no current complaints. Review of Systems Review of Systems: 12 systems were reviewed and are negativ e except for as per HPI. PENDING SALE TO [facility] Past Medical History Medical History (Updated 08/01/24 @ 22:59 by Sandy Rooney PA-C) Depression with anxiety Obstructive sleep apnea on CPAP Osteoarthritis Chronic obstructive pulmonary disease Type 2 diabetes mellitus Hyperlipidemia Hypertension Surgical History Surgical History (Updated 08/01/24 @ 22:38 by Sandy Rooney PA-C) History of endoscopic retrograde cholangiopancreatography History of section History of bilateral cataract extraction History of biliary duct stent placement History of cholecystectomy History of arthroplasty of right knee (07/24/24) History of arthroscopy of left knee (2020) Family History Family History Unknown Hypertension Diabetes mellitus Arthritis Social History Social History (Updated 08/01/24 @ 22:17 by Sandy Rooney PA-C) Social History: Surrogate medical decision maker: Dallas Sabillon, son. Code status: Full code. Smoking packs per day: 1 Smoking cigarettes per day: 20.0 Years smoked: 38 Smoking pack-years: 38.00 Smoking status: Former smoker Alcohol intake: current Substance use: former Substance use type: marijuana Other substance usage details: gummies Do You Feel Safe in your Home?: Yes Lack of Transportation: No Lack of Food: Never True Current Housing: I Have Housing Concerned About Future Housing: No Difficulty Paying Gas/Electric Bills: No Difficulty Paying for Meds: No Currently Unemployed: No Education: High School Diploma/GED Difficulty w/ Childcare or Family Care: No Living arrangements: alone Occupation/Education: retired Spiritual care concerns: No Meds Home Medications and Allergies Home Medications ?Medication ?Instructions ?Recorded ?Confirmed ?Type albuterol sulfate 90 mcg/actuation 1 puff inhalation Q4H PRN 05/03/24 08/01/24 History aerosol inhaler (Ventolin HFA) bronchospasm cholecalciferol (vitamin D3) 50 50 mcg PO DAILY 05/03/24 08/01/24 History mcg (2,000 unit) capsule diazepam 2 mg tablet 2 mg PO Q6H PRN anxiety 05/03/24 08/01/24 History fluticasone propionate 50 1 spray intranasal PRN 05/03/24 08/01/24 History mcg/actuation nasal spray,suspension olmesartan 40 mg-amlodipine 10 1 tablet PO DAILY 05/03/24 08/01/24 History mg-hydrochlorothiazide 25 mg tablet omeprazole magnesium 20 mg 20 mg PO DAILY 05/03/24 08/01/24 History capsule,delayed release (Acid [employer] (omeprazole)) potassium chloride 10 mEq 10 meq PO DAILY 05/03/24 08/01/24 History tablet,extended release (Klor-Con) pravastatin 40 mg tablet 40 mg PO QHS 05/03/24 08/01/24 History linagliptin 5 mg tablet 5 mg PO QAM 07/10/24 08/01/24 History nebivolol 20 mg tablet (Bystolic) 20 mg PO DAILY 07/10/24 08/01/24 History sertraline 25 mg tablet 100 mg PO Q24H 07/10/24 08/01/24 History umeclidinium 62.5 mcg-vilanterol 1 inh inhalation DAILY 07/10/24 08/01/24 History 25 mcg/actuation powdr for inhalation (Anoro Ellipta) aspirin 81 mg tablet,delayed 81 mg PO BID DVT PROPHYLAXIS #40 07/25/24 08/01/24 Rx release tabs oxycodone-acetaminophen 5 mg-325 1 tablet PO Q6H PRN pain #40 tabs 07/25/24 08/01/24 Rx mg tablet (Percocet) Allergies Allergy/AdvReac Type Severity Reaction Status Date / Time Tetanus Vaccines and Toxoid Allergy Mild hot Verified 07/24/24 09:30 atorvastatin AdvReac Mild leg pain Verified 07/24/24 09:30 codeine AdvReac Mild Unknown Verified 07/24/24 09:30 Vital Signs Vital Signs - 24 hr 08/01/24 20:40 08/01/24 20:54 08/01/24 21:00 Temperature 97.9 F Pulse Rate 60 60 Respiratory Rate 16 Blood Pressure 104/44 L Pulse Oximetry 96 96 Oxygen Delivery Nasal Cannula Oxygen Flow Rate 4 Exam Narrative: General: Nontoxic-appearing female in the semi-Torres position in bed. Weight: 98.1 kg. BMI: 39.6. HEENT: PERRL, EOMI. Changes of prior cataract surgery. Sclera anicteric. Tacky mucous membranes. Neck: Supple. No JVD. Respiratory: Respirations are nonlabored and lungs are clear to auscultation. Cardiovascular: Regular rate and rhythm. Gastrointestinal: Abdomen is soft, nontender, and nondistended with positive bowel sounds. Skin: Warm and dry. Extremities: No cyanosis or clubbing. Right lower extremity is edematous with healing ecchymosis. Dressing is in place with apparent old and new blood and possible blood blister. The dressing was not removed at this time. There is erythema, warmth, and tenderness distal to the knee to about the ankle. The area is tender to touch. Neurological: Alert. Cranial nerves 2-12 are grossly intact. No gross focal deficits to casual conversation. Psychiatric: Pleasant and cooperative with normal mood and affect. Judgment and insight intact. H&P: Results Labs Labs: Pertinent labs and imaging are discussed in HPI. Assessment and Plan Assessment and plan (1) Status post right knee replacement: Code(s): Z96.651 - Presence of right artificial knee joint Status: Acute (2) Cellulitis of right leg: Code(s): L03.115 - Cellulitis of right lower limb Status: Acute (3) Pulmonary embolism: Code(s): I26.99 - Other pulmonary embolism without acute cor pulmonale Status: Acute (4) Hypertension: Code(s): I10 - Essential (primary) hypertension Status: Acute (5) Type 2 diabetes mellitus: Code(s): E11.9 - Type 2 diabetes mellitus without complications Status: Acute (6) Chronic obstructive pulmonary disease: Code(s): J44.9 - Chronic obstructive pulmonary disease, unspecified Status: Acute (7) Obstructive sleep apnea on CPAP: Code(s): G47.33 - Obstructive sleep apnea (adult) (pediatric) Status: Acute Plan The patient presented to the outside facility with complaints of shortness of breath and right knee redness and swelling as detailed in HPI. She was found to have bilateral pulmonary emboli without evidence of heart strain on imaging and she has been started on enoxaparin 1 mg/kg q.12 hours. Lower extremity venous Doppler ultrasounds have been ordered to evaluate for DVT. Echocardiogram ordered. Reason for transfer to [place] is consultation with Dr. Koch as the ED provider was concerned for infection in that knee given findings cellulitis. She received cefepime and vancomycin at the outside facility; we will continue ceftriaxone and vancomycin to cover for what appears to be cellulitis. This should also cover possible infected joint however that seems unlikely. Blood pressures have been running at the lower end of normal and will be monitored closely. Her urine is very dark and she will be hydrated overnight. Initiate sliding scale insulin, Accu-Cheks, and hypoglycemic protocol. CPAP will be provided for the patient to use while hospitalized. Her home medications will be reviewed and resumed as appropriate. Findings and treatment plan were discussed with the patient. Questions were solicited and answered to satisfaction. The patient's medical management will be taken over by the hospitalist team in a.m. Quality VTE Prophylaxis VTE prophylaxis: pharmacologic ordered (on enoxaparin for pulmonary embolism) The patient has been admitted under observation status. Hospitalist MIPS Advance Care Plan I have confirmed that the patient's Advanced Care Plan is present, code status is documented, or surrogate decision maker is listed in patient medical record.: Yes Medication Reconciliation I have utilized all available resources to obtain, update and review the patients current medications (includes all prescriptions, OTC, herbals, cannabis, and nutritional supplements).: Yes
[2024-08-01 22:40] LABS: Glucose Point of Care 235 mg/dl (65-105)
[2024-08-01 22:57] LABS: Hematocrit 32.8 % (37.0-47.0); Hemoglobin 10.1 g/dL (12.0-15.0); Mean Corpuscular HGB Conc 30.8 g/dl (32-36); Mean Corpuscular Hemoglobin 27.2 pg (26-34); Mean Corpuscular Volume 88.4 fl (80-100); Mean Platelet Volume 10.1 fl (7.4-10.4); Platelet Count Result 211 k/mm3 (150-375); Red Blood Count 3.71 M/mm3 (4.2-5.4); Red Cell Distribution Width 17.1 % (11.5-14.5); White Blood Count 10.1 K/mm3 (4.5-10.0)
[2024-08-01 23:10] LABS: Creatine Kinase 41 U/L (30-135)
[2024-08-01 23:12] LABS: Alanine Aminotransferase 27 U/L (6-35); Albumin Level 3.7 g/dL (3.5-5.1); Alkaline Phosphatase 107 U/L (38-126); Anion Gap 7 mmol/L (4-12); Aspartate Amino Transferase 21 U/L (14-36); Bilirubin,Total 3.3 mg/dL (0.2-1.3); Blood Urea Nitrogen 17 mg/dL (7-17); CRP 7.6 mg/dL (<1.0); Calcium 8.2 mg/dL (8.4-10.2); Carbon Dioxide 29 mmol/L (22-30); Chloride 100 mmol/L (98-107); Estimated CRCL calculation 101 ml/min; Estimated Glomerular Filt Rate > 60; Glucose 218 mg/dL (65-110); Potassium 3.4 mmol/L (3.4-5.0); Sodium 136 mmol/L (137-145)
[2024-08-01 23:14] LABS: Hemoglobin A1C 6.3 % (<5.7)
[2024-08-01 23:17] LABS: INR 1.1; Partial Thromboplastin Time 32.5 Seconds (22.3-36.8); Prothrombin Time 15.1 Seconds (11.1-14.7)
[2024-08-01 23:23] LABS: Band Neutrophils Percent 3 % (0-6); Neutrophils Absolute Manual 9.89 K/mm3 (1.7-7.2); Neutrophils Percent Manual 95 % (46-73); Total Cells Counted 100
[2024-08-01 23:24] LABS: Macrocytosis 1+ (NORMAL); Ovalocytes 1+; Platelet Estimate Adequate (Adequate); Polychromasia 1+; Schistocytes None Seen
[2024-08-01] MEDS: SODIUM CHLORIDE 0.9% IV 1,000 ML 100 ML IV CONT (23:25)
[2024-08-01] MEDS: oxyCODONE/ACETAMINOPHEN (*CRX) 5-325 MG TABLET 1 TABLET PO (23:25)
[2024-08-01 23:26] LABS: Procalcitonin 0.1 ng/mL
[2024-08-01] MEDS: diazePAM (*CRX) 2 MG TABLET PO (23:26)
[2024-08-01 23:40] VITALS: PULSE 65; RESP 18; O2SAT 93
[2024-08-01] MEDS: PRAVASTATIN SODIUM 20 MG TABLET 40 MG PO (23:48)
[2024-08-01] MEDS: ENOXAPARIN 100 MG/ML SYRINGE 98 MG SUB-Q (23:48)
[2024-08-02] VITALS (10 sets, daily range): BP systolic 106–129; BP diastolic 48–68; PULSE 52–89; RESP 15–23; TEMP 36.1–37.1; O2SAT 92–97
[2024-08-02 00:53] LABS: MRSA (PCR) NOT DETECTED (NOT DETECTE)
[2024-08-02] MEDS: VANCOMYCIN 1,500 MG/NS 500 ML 1,500 MG/500 ML BAG 250 MG IVPB ×2 (01:39→13:12)
[2024-08-02] MEDS: WATER FOR IRRIGATION, STERILE 500 ML BOTTLE (01:42)
[2024-08-02 05:32] LABS: Hematocrit 32.4 % (37.0-47.0); Hemoglobin 9.8 g/dL (12.0-15.0); Mean Corpuscular HGB Conc 30.2 g/dl (32-36); Mean Corpuscular Hemoglobin 26.8 pg (26-34); Mean Corpuscular Volume 88.8 fl (80-100); Mean Platelet Volume 10.7 fl (7.4-10.4); Platelet Count Result 219 k/mm3 (150-375); Red Blood Count 3.65 M/mm3 (4.2-5.4); Red Cell Distribution Width 17.3 % (11.5-14.5); White Blood Count 11.5 K/mm3 (4.5-10.0)
[2024-08-02 05:42] LABS: Anion Gap 8 mmol/L (4-12); Blood Urea Nitrogen 16 mg/dL (7-17); Calcium 8.2 mg/dL (8.4-10.2); Carbon Dioxide 28 mmol/L (22-30); Chloride 103 mmol/L (98-107); Estimated CRCL calculation 102 ml/min; Estimated Glomerular Filt Rate > 60; Glucose 185 mg/dL (65-110); Magnesium 2.1 mg/dL (1.6-2.3); Potassium 3.4 mmol/L (3.4-5.0); Sodium 139 mmol/L (137-145)
[2024-08-02] MEDS: NEBIVOLOL HCL 5 MG TABLET 20 MG PO (07:50)
[2024-08-02] MEDS: SITagliptin PHOSPHATE 100 MG TABLET PO (07:51)
[2024-08-02] MEDS: CHOLECALCIFEROL 1,000 UNITS TABLET 2000 UNITS PO (07:51)
[2024-08-02] MEDS: POTASSIUM CHLORIDE 10 MEQ ER TABLET PO (07:51)
[2024-08-02] MEDS: PANTOPRAZOLE 40 MG TABLET PO (07:51)
[2024-08-02] MEDS: SERTRALINE HCL 50 MG TABLET 100 MG PO (07:51)
[2024-08-02 07:58] LABS: Glucose Point of Care 147 mg/dl (65-105)
[2024-08-02] MEDS: UMECLIDINIUM/VILANTEROL 62.5-25 MCG ELLIPTA 1 PUFF INHALATION (08:25)
[2024-08-02] MEDS: HYDROcodone/acetaminophen (*CRX) 5-325 MG TABLET 1 TAB PO ×2 (09:54→20:24)
--- NOTE | 2024-08-02 10:00 | P.PNOP_ITS ---
Progress Note: A&P Assessment and Plan (1) Status post right knee replacement: Code(s): Z96.651 - Presence of right artificial knee joint Status: Acute Assessment and Plan: POD #9 : Right TKA Continue PT/OT. WBAT. Walker. HIGH FALL RISK. Continue pain control. Ice knee. Patient to have ice machine brought back in. Protect skin. DVT/PE treatment per hospitalist currently, on Lovenox Q12 hr. Dressing removed. Blister unroofed on the lateral aspect of the right knee naturally with dressing removal. Applied vaseline gauze over blister, new dressing placed on TKA incision. No signs of active infection of the right TKA. No malodor. No purulence. No severe tenderness to touch or signs of active hematoma. Will continue to monitor. Bowel Regimen. Dispo: Home with resumed Home Health pending medical clearance Will continue to monitor. (2) Cellulitis of right leg: Code(s): L03.115 - Cellulitis of right lower limb Status: Acute Assessment and Plan: Concern for right LE cellulitis. No signs or concerns of incisional wound and/or infection. IV antibiotics currently for cellulitis. Will continue to monitor for improvement. Transition to oral antibiotics prior to d/c. (3) Pulmonary embolism: Code(s): I26.99 - Other pulmonary embolism without acute cor pulmonale Status: Acute Assessment and Plan: Patient d/c'd on 81 mg Aspirin PO BID for DVT Prophylaxis. Found to have left LE DVT and PE, requiring readmission. No right DVT. On Lovenox currently. Will require continued anticoagulation at d/c. Plan Reviewed history, exam, radiographs and current labs with attending MD and covering surgeon, Dr. Koch, who agrees with current plan as indicated above. No further recommendations from Dr. Koch at this time. Subjective Subjective Date/Time Seen: 08/02/24 10:00 Post Op day: 9 Interval history: POD #9 The patient was evaluated in the [facility] emergency room yesterday with complaints of shortness of breath. She is postop day 9 status post right TKA on 07/24/[address] Koch. She was discharged home with home health and on aspirin 81 mg p.o. b.i.d. for DVT prophylaxis status post TKA. She reports gradual onset of shortness of breath over the last 3 days which prompted her arrival to the emergency room for further evaluation. She was found to have a pulmonary embolism and concerns for right lower extremity cellulitis. She was transferred to our hospital from [facility] for further evaluation by patient's surgeon, Dr. Koch. The patient has not had a dressing change of the right knee since discharge from the hospital. She complains of right lower extremity pain and ecchymosis. No severe pain with flexion extension of the knee. She denies fever, chills, night sweats, nausea, vomiting or diarrhea. She notes old blood on the right TKA dressing but denies recent drainage. Review of Systems Review of Systems: All systems reviewed & are unremarkable except as noted in HPI and below Exam Const: General: comfortable Resp: Effort & Inspection: able to speak in complete sentences Other: On nasal cannula O2 Cardio: Rate: regular rate Rhythm: regular rhythm GI: GI Palp: Yes Soft to palpation Skin: Other: right lower extremity with ecchymosis and mild erythema Neuro: General: gait normal Speech: normal speech Sensory Exam: normal sensation Extrem: Right lower extremity: knee ( See below) Details: swelling ( as expected, no evidence of hematoma), abnormal ROM ( limitations with range of motion consistent with recent surgical intervention) Details: pain with active ROM during; no pain with passive ROM, ecchymosis and warmth ( mild, anterior tibia) Other: Dressing removed of the right knee. Incision well approximated. [place] in place. No active drainage. Blistering noted on the lateral aspect of the knee 3 cm from incision line. Blister unroofed naturally with dressing removal. No malodor. No purulence. Knee without evidence of active hematoma. Active and passive range of motion of the right knee without severe pain. Limitations in range of motion consistent with recent surgical intervention. Mild erythema to the right anterior tibia. Ecchymosis consistent with recent TKA. Swelling of the right lower extremity 2 to 3+ pitting edema. Pedal pulses dopplered. Sensation intact. Objective Data Vital Signs Vital Signs: Vital Signs - 24 hr 08/01/24 20:40 08/01/24 20:54 08/01/24 21:00 Temperature 36.6 C Pulse Rate 60 60 Respiratory Rate 16 Blood Pressure 104/44 L Pulse Oximetry 96 96 Oxygen Delivery Nasal Cannula Oxygen Flow Rate 4 08/01/24 23:40 08/02/24 00:00 08/02/24 00:00 Temperature 36.6 C Pulse Rate 65 60 61 Respiratory Rate 18 16 Blood Pressure 106/48 L Pulse Oximetry 93 93 Oxygen Delivery CPAP Oxygen Flow Rate 08/02/24 04:00 08/02/24 04:00 08/02/24 04:30 Temperature 36.1 C L Pulse Rate 53 L 62 61 Respiratory Rate 16 15 Blood Pressure 129/52 L Pulse Oximetry 95 92 Oxygen Delivery CPAP Oxygen Flow Rate 08/02/24 07:47 08/02/24 08:00 Temperature 36.4 C L Pulse Rate 70 Respiratory Rate 16 Blood Pressure 128/50 L Pulse Oximetry 97 97 Oxygen Delivery Nasal Cannula Oxygen Flow Rate 2 Intake/Output Intake/Output: Intake & Output 07/30/24 07/31/24 08/01/24 08/02/24 23:59 23:59 23:59 23:59 Intake Total 50 1280 Output Total 450 Balance 50 830 Meds/Results Medications: Active Medications Generic Name Dose Route Start Last Admin Trade Name Freq PRN Reason Stop Dose Admin Acetaminophen 650 mg 08/01/24 21:13 Acetaminophen 325 Mg Tablet PO Q4H PRN Mild Pain (1-3) or Fever Hydrocodone Bitart/Acetaminophen 1 tab 08/01/24 22:46 08/02/24 09:54 Hydrocodone/Acetaminophen (*Crx) 5-325 Mg Tablet PO 1 tab Q6H PRN Administration Pain Rated 4-6 Albuterol 1 puff 08/01/24 22:45 Albuterol Sulfate (*Sp) Aerosol 1 Puff INHALATION Q4HRT PRN bronchospasm Dextrose 12.5 gm 08/01/24 22:21 Dextrose 50% 25 Gm/50 Ml Syringe IV PUSH PRN PRN Hypoglycemia Protocol Diazepam 2 mg 08/01/24 22:45 08/01/24 23:26 Diazepam (*Crx) 2 Mg Tablet PO 2 mg Q6H PRN Administration anxiety Enoxaparin Sodium 98 mg 08/01/24 23:00 08/01/24 23:48 Enoxaparin 100 Mg/Ml Syringe SUB-Q 98 mg Q12H RADHA Administration Glucagon 1 mg 08/01/24 22:21 Glucagon For Inj 1 Mg Vial IM PRN PRN Hypoglycemia Protocol Glucose 15 gm 08/01/24 22:21 Glucose Oral Gel 15 Gm Of Glucse In 37.5 Gm Tube PO PRN PRN Hypoglycemia Protocol Dextrose 1,000 mls @ 100 mls/hr 08/01/24 22:21 Dextrose 5% 1,000 Ml IVPB PRN PRN Hypoglycemia Protocol Ceftriaxone Sodium 1 gm in 50 mls @ 100 mls/hr 08/01/24 23:20 08/01/24 23:55 Rocephin 1 Gm/Ns 50 Ml IVPB Infused HS RADHA Infusion Vancomycin HCl 1,500 mg in 500 mls @ 250 mls/hr 08/02/24 02:00 08/02/24 03:39 Vancomycin 1,500 Mg/Ns 500 Ml IVPB Infused Q12H RADHA Infusion Insulin Aspart 3 - 6 units 08/02/24 08:00 08/02/24 07:53 Insulin Aspart (*Bkc) 100 Units/Ml SUB-Q Not Given TIDWM RADHA Protocol Insulin Aspart 1 - 3 units 08/02/24 21:00 Insulin Aspart (*Bkc) 100 Units/Ml SUB-Q HS RADHA Protocol Nebivolol 20 mg 08/02/24 09:00 08/02/24 07:50 Nebivolol Hcl 5 Mg Tablet PO 20 mg DAILY RADHA Administration Oxycodone/Acetaminophen 1 tablet 08/01/24 22:45 08/01/24 23:25 Oxycodone/Acetaminophen (*Crx) 5-325 Mg Tablet PO 1 tablet Q6H PRN Administration pain 7-10 Pantoprazole Sodium 40 mg 08/02/24 09:00 08/02/24 07:51 Pantoprazole 40 Mg Tablet PO 40 mg QAM RADHA Administration Perflutren Lipid Microsphere 0 ml 08/01/24 21:13 Perflutren Lipid Microspheres 1.5 Ml Vial Diluted To 10 Ml Total Volume IV PUSH 08/04/24 21:15 ONCE PRN adequate visualization Protocol Potassium Chloride 10 meq 08/02/24 09:00 08/02/24 07:51 Potassium Chloride 10 Meq Er Tablet PO 10 meq DAILY RADHA Administration Pravastatin Sodium 40 mg 08/01/24 23:35 08/01/24 23:48 Pravastatin Sodium 20 Mg Tablet PO 40 mg QHS RADHA Administration Sertraline HCl 100 mg 08/02/24 09:00 08/02/24 07:51 Sertraline Hcl 50 Mg Tablet PO 100 mg DAILY RADHA Administration Sitagliptin Phosphate 100 mg 08/02/24 09:00 08/02/24 07:51 Sitagliptin Phosphate 100 Mg Tablet PO 100 mg QAM RADHA Administration Umeclidinium/Vilanterol 1 puff 08/02/24 08:00 08/02/24 08:25 Umeclidinium/Vilanterol 62.5-25 Mcg Ellipta INHALATION 1 puff DAILYRT RADHA Administration Vitamin D 2,000 units 08/02/24 09:00 08/02/24 07:51 Cholecalciferol 1,000 Units Tablet PO 2,000 units DAILY RADHA Administration Radiology Results: ITS Impressions Venous Doppler Study 08/01/24 23:41 IMPRESSION: Deep venous thrombosis of the left posterior tibial and peroneal veins, as detailed above. Labs Labs: Laboratory Results - last 24 hr 08/01/24 08/01/24 08/01/24 22:36 22:47 23:37 WBC 10.1 H RBC 3.71 L Hgb 10.1 L Hct 32.8 L MCV 88.4 MCH 27.2 MCHC 30.8 L RDW 17.1 H Plt Count 211 MPV 10.1 Immature Gran % (Auto) Not Reportable Neut % (Auto) Not Reportable Lymph % (Auto) Not Reportable [place] % (Auto) Not Reportable Eos % (Auto) Not Reportable Baso % (Auto) Not Reportable Lymph # (Auto) Not Reportable [place] # (Auto) Not Reportable Eos # (Auto) Not Reportable Baso # (Auto) Not Reportable Abs Immat Gran (auto) Not Reportable Absolute Neuts (auto) Not Reportable Absolute Nucleated RBC Not Reportable Total Counted 100 Neutrophils % (Manual) 95 H Band Neutrophils % 3 Lymphocytes % (Manual) 2.0 L Nucleated RBC % Not Reportable Abs Neuts (Manual) 9.89 H Abs Lymphs (Manual) 0.20 L Platelet Estimate Adequate Polychromasia 1+ Macrocytosis 1+ Ovalocytes 1+ Schistocytes None seen PT 15.1 H INR 1.1 APTT 32.5 Sodium 136 L Potassium 3.4 Chloride 100 Carbon Dioxide 29 Anion Gap 7 BUN 17 Creatinine 0.46 L Estim Creat Clear Calc 101 Estimated GFR > 60 Glucose 218 H POC Capillary Glucose 235 H Hemoglobin A1c 6.3 H Calcium 8.2 L Magnesium Total Bilirubin 3.3 H AST 21 ALT 27 Alkaline Phosphatase 107 Total Creatine Kinase 41 C-Reactive Protein 7.6 H Total Protein 7.0 Albumin 3.7 Procalcitonin 0.1 Nasal MRSA (PCR) Not detected 08/02/24 08/02/24 05:12 07:52 WBC 11.5 H RBC 3.65 L Hgb 9.8 L Hct 32.4 L MCV 88.8 MCH 26.8 MCHC 30.2 L RDW 17.3 H Plt Count 219 MPV 10.7 H Immature Gran % (Auto) Neut % (Auto) Lymph % (Auto) [place] % (Auto) Eos % (Auto) Baso % (Auto) Lymph # (Auto) [place] # (Auto) Eos # (Auto) Baso # (Auto) Abs Immat Gran (auto) Absolute Neuts (auto) Absolute Nucleated RBC Total Counted Neutrophils % (Manual) Band Neutrophils % Lymphocytes % (Manual) Nucleated RBC % Abs Neuts (Manual) Abs Lymphs (Manual) Platelet Estimate Polychromasia Macrocytosis Ovalocytes Schistocytes PT INR APTT Sodium 139 Potassium 3.4 Chloride 103 Carbon Dioxide 28 Anion Gap 8 BUN 16 Creatinine 0.46 L Estim Creat Clear Calc 102 Estimated GFR > 60 Glucose 185 H POC Capillary Glucose 147 H Hemoglobin A1c Calcium 8.2 L Magnesium 2.1 Total Bilirubin AST ALT Alkaline Phosphatase Total Creatine Kinase C-Reactive Protein Total Protein Albumin Procalcitonin Nasal MRSA (PCR)
[2024-08-02] MEDS: cefTRIAXone 2 GM/NS 100 ML 2 GM/100 ML BAG IVPB (11:10)
[2024-08-02] MEDS: ENOXAPARIN 100 MG/ML SYRINGE 98 MG SUB-Q ×2 (11:10→22:14)
--- NOTE | 2024-08-02 11:48 | PM.IMPN ---
Progress Note: A&P Assessment and Plan (1) Status post right knee replacement: Code(s): Z96.651 - Presence of right artificial knee joint Status: Acute (2) Cellulitis of right leg: Code(s): L03.115 - Cellulitis of right lower limb Status: Acute (3) Pulmonary embolism: Code(s): I26.99 - Other pulmonary embolism without acute cor pulmonale Status: Acute (4) Hypertension: Code(s): I10 - Essential (primary) hypertension Status: Acute (5) Type 2 diabetes mellitus: Code(s): E11.9 - Type 2 diabetes mellitus without complications Status: Acute (6) Chronic obstructive pulmonary disease: Code(s): J44.9 - Chronic obstructive pulmonary disease, unspecified Status: Acute (7) Obstructive sleep apnea on CPAP: Code(s): G47.33 - Obstructive sleep apnea (adult) (pediatric) Status: Acute Plan Cellulitis of right lower extremity The patient presented to the outside facility with complaints of right knee redness and swelling Patient found have right lower extremity cellulitis Her right knee was replaced on 07/24/2024 Continue ceftriaxone vancomycin consultation with Dr. Koch as the ED provider was concerned for infection in that knee given findings cellulitis Acute pulmonary embolism Patient present ED with a chief complaint of shortness breath She was found to have bilateral pulmonary emboli without evidence of heart strain on imaging Lower extremity venous Doppler ultrasounds shows left-sided DVT Pending echocardiogram Continue enoxaparin 1 mg/kg q.12 hours. Hypertension Blood pressure on the lower side Hold hypertension medication now Type 2 diabetes Initiate sliding scale insulin, Accu-Cheks, and hypoglycemic protocol. RAS on CPAP CPAP will be provided for the patient to use while hospitalized. Subjective Date/time seen: 08/02/24 11:48 Interval history: I saw exam patient today, patient feels better, denies chest pain shortness breast today. Patient still has bilateral lower extremity pain, tolerable. Patient is afebrile blood pressure stable Exam Narrative: GENERAL: Pleasant, in no acute distress. Well-nourished. - EYES: EOMI. Anicteric. - HENT: Moist mucous membranes. - LUNGS: Clear to auscultation bilaterally, no wheezing, rhonchi, or rales. - CARDIOVASCULAR: Regular rate and rhythm. No murmur. No JVD. - ABDOMEN: Soft, non-tender and non-distended. No palpable masses. - EXTREMITIES: Swelling, erythema, tender of right lower extremity, right knee surgical wound is covered. Left calf tenderness. Peripheral pulses 2+. Non-tender. - NEUROLOGIC: No focal neurological deficits. CN II-XII grossly intact. - PSYCHIATRIC: Awake, Alert and oriented x 3. Appropriate mood and affect. - SKIN: No rashes or lesions. Warm. - LYMPH: No cervical lymphadenopathy. Objective Data Vital Signs Vital Signs: Vital Signs - 24 hr 08/01/24 20:40 08/01/24 20:54 08/01/24 21:00 Temperature 97.9 F Pulse Rate 60 60 Respiratory Rate 16 Blood Pressure 104/44 L Pulse Oximetry 96 96 Oxygen Delivery Nasal Cannula Oxygen Flow Rate 4 08/01/24 23:40 08/02/24 00:00 08/02/24 00:00 Temperature 97.8 F Pulse Rate 65 60 61 Respiratory Rate 18 16 Blood Pressure 106/48 L Pulse Oximetry 93 93 Oxygen Delivery CPAP Oxygen Flow Rate 08/02/24 04:00 08/02/24 04:00 08/02/24 04:30 Temperature 97 F L Pulse Rate 53 L 62 61 Respiratory Rate 16 15 Blood Pressure 129/52 L Pulse Oximetry 95 92 Oxygen Delivery CPAP Oxygen Flow Rate 08/02/24 07:47 08/02/24 08:00 08/02/24 08:00 Temperature 97.5 F L Pulse Rate 70 66 Respiratory Rate 16 Blood Pressure 128/50 L Pulse Oximetry 97 97 Oxygen Delivery Nasal Cannula Oxygen Flow Rate 2 08/02/24 08:25 Temperature Pulse Rate Respiratory Rate Blood Pressure Pulse Oximetry 97 Oxygen Delivery Nasal Cannula Oxygen Flow Rate 4 Intake/Output Intake/Output: Intake & Output 07/30/24 07/31/24 08/01/24 08/02/24 23:59 23:59 23:59 23:59 Intake Total 50 1280 Output Total 450 Balance 50 830 Meds/Results Medications: Active Medications Generic Name Dose Route Start Last Admin Trade Name Freq PRN Reason Stop Dose Admin Acetaminophen 650 mg 08/01/24 21:13 Acetaminophen 325 Mg Tablet PO Q4H PRN Mild Pain (1-3) or Fever Hydrocodone Bitart/Acetaminophen 1 tab 08/01/24 22:46 08/02/24 09:54 Hydrocodone/Acetaminophen (*Crx) 5-325 Mg Tablet PO 1 tab Q6H PRN Administration Pain Rated 4-6 Albuterol 1 puff 08/01/24 22:45 Albuterol Sulfate (*Sp) Aerosol 1 Puff INHALATION Q4HRT PRN bronchospasm Dextrose 12.5 gm 08/01/24 22:21 Dextrose 50% 25 Gm/50 Ml Syringe IV PUSH PRN PRN Hypoglycemia Protocol Diazepam 2 mg 08/01/24 22:45 08/01/24 23:26 Diazepam (*Crx) 2 Mg Tablet PO 2 mg Q6H PRN Administration anxiety Enoxaparin Sodium 98 mg 08/01/24 23:00 08/02/24 11:10 Enoxaparin 100 Mg/Ml Syringe SUB-Q 98 mg Q12H RADHA Administration Glucagon 1 mg 08/01/24 22:21 Glucagon For Inj 1 Mg Vial IM PRN PRN Hypoglycemia Protocol Glucose 15 gm 08/01/24 22:21 Glucose Oral Gel 15 Gm Of Glucse In 37.5 Gm Tube PO PRN PRN Hypoglycemia Protocol Dextrose 1,000 mls @ 100 mls/hr 08/01/24 22:21 Dextrose 5% 1,000 Ml IVPB PRN PRN Hypoglycemia Protocol Vancomycin HCl 1,500 mg in 500 mls @ 250 mls/hr 08/02/24 02:00 08/02/24 03:39 Vancomycin 1,500 Mg/Ns 500 Ml IVPB Infused Q12H RADHA Infusion Ceftriaxone Sodium 2 gm in 100 mls @ 200 mls/hr 08/02/24 11:00 08/02/24 11:10 Rocephin 2 Gm/Ns 100 Ml IVPB 200 mls/hr Q24H RADHA Administration Insulin Aspart 3 - 6 units 08/02/24 08:00 08/02/24 07:53 Insulin Aspart (*Bkc) 100 Units/Ml SUB-Q Not Given TIDWM RADHA Protocol Insulin Aspart 1 - 3 units 08/02/24 21:00 Insulin Aspart (*Bkc) 100 Units/Ml SUB-Q HS RADHA Protocol Nebivolol 20 mg 08/02/24 09:00 08/02/24 07:50 Nebivolol Hcl 5 Mg Tablet PO 20 mg DAILY RADHA Administration Oxycodone/Acetaminophen 1 tablet 08/01/24 22:45 08/01/24 23:25 Oxycodone/Acetaminophen (*Crx) 5-325 Mg Tablet PO 1 tablet Q6H PRN Administration pain 7-10 Pantoprazole Sodium 40 mg 08/02/24 09:00 08/02/24 07:51 Pantoprazole 40 Mg Tablet PO 40 mg QAM RADHA Administration Perflutren Lipid Microsphere 0 ml 08/01/24 21:13 Perflutren Lipid Microspheres 1.5 Ml Vial Diluted To 10 Ml Total Volume IV PUSH 08/04/24 21:15 ONCE PRN adequate visualization Protocol Potassium Chloride 10 meq 08/02/24 09:00 08/02/24 07:51 Potassium Chloride 10 Meq Er Tablet PO 10 meq DAILY RADHA Administration Pravastatin Sodium 40 mg 08/01/24 23:35 08/01/24 23:48 Pravastatin Sodium 20 Mg Tablet PO 40 mg QHS RADHA Administration Sertraline HCl 100 mg 08/02/24 09:00 08/02/24 07:51 Sertraline Hcl 50 Mg Tablet PO 100 mg DAILY RADHA Administration Sitagliptin Phosphate 100 mg 08/02/24 09:00 08/02/24 07:51 Sitagliptin Phosphate 100 Mg Tablet PO 100 mg QAM RADHA Administration Umeclidinium/Vilanterol 1 puff 08/02/24 08:00 08/02/24 08:25 Umeclidinium/Vilanterol 62.5-25 Mcg Ellipta INHALATION 1 puff DAILYRT RADHA Administration Vitamin D 2,000 units 08/02/24 09:00 08/02/24 07:51 Cholecalciferol 1,000 Units Tablet PO 2,000 units DAILY RADHA Administration Radiology Results: ITS Impressions Venous Doppler Study 08/01/24 23:41 IMPRESSION: Deep venous thrombosis of the left posterior tibial and peroneal veins, as detailed above. Labs Labs: Laboratory Results - last 24 hr 08/01/24 08/01/24 08/01/24 22:36 22:47 23:37 WBC 10.1 H RBC 3.71 L Hgb 10.1 L Hct 32.8 L MCV 88.4 MCH 27.2 MCHC 30.8 L RDW 17.1 H Plt Count 211 MPV 10.1 Immature Gran % (Auto) Not Reportable Neut % (Auto) Not Reportable Lymph % (Auto) Not Reportable [place] % (Auto) Not Reportable Eos % (Auto) Not Reportable Baso % (Auto) Not Reportable Lymph # (Auto) Not Reportable [place] # (Auto) Not Reportable Eos # (Auto) Not Reportable Baso # (Auto) Not Reportable Abs Immat Gran (auto) Not Reportable Absolute Neuts (auto) Not Reportable Absolute Nucleated RBC Not Reportable Total Counted 100 Neutrophils % (Manual) 95 H Band Neutrophils % 3 Lymphocytes % (Manual) 2.0 L Nucleated RBC % Not Reportable Abs Neuts (Manual) 9.89 H Abs Lymphs (Manual) 0.20 L Platelet Estimate Adequate Polychromasia 1+ Macrocytosis 1+ Ovalocytes 1+ Schistocytes None seen PT 15.1 H INR 1.1 APTT 32.5 Sodium 136 L Potassium 3.4 Chloride 100 Carbon Dioxide 29 Anion Gap 7 BUN 17 Creatinine 0.46 L Estim Creat Clear Calc 101 Estimated GFR > 60 Glucose 218 H POC Capillary Glucose 235 H Hemoglobin A1c 6.3 H Calcium 8.2 L Magnesium Total Bilirubin 3.3 H AST 21 ALT 27 Alkaline Phosphatase 107 Total Creatine Kinase 41 C-Reactive Protein 7.6 H Total Protein 7.0 Albumin 3.7 Procalcitonin 0.1 Nasal MRSA (PCR) Not detected 08/02/24 08/02/24 05:12 07:52 WBC 11.5 H RBC 3.65 L Hgb 9.8 L Hct 32.4 L MCV 88.8 MCH 26.8 MCHC 30.2 L RDW 17.3 H Plt Count 219 MPV 10.7 H Immature Gran % (Auto) Neut % (Auto) Lymph % (Auto) [place] % (Auto) Eos % (Auto) Baso % (Auto) Lymph # (Auto) [place] # (Auto) Eos # (Auto) Baso # (Auto) Abs Immat Gran (auto) Absolute Neuts (auto) Absolute Nucleated RBC Total Counted Neutrophils % (Manual) Band Neutrophils % Lymphocytes % (Manual) Nucleated RBC % Abs Neuts (Manual) Abs Lymphs (Manual) Platelet Estimate Polychromasia Macrocytosis Ovalocytes Schistocytes PT INR APTT Sodium 139 Potassium 3.4 Chloride 103 Carbon Dioxide 28 Anion Gap 8 BUN 16 Creatinine 0.46 L Estim Creat Clear Calc 102 Estimated GFR > 60 Glucose 185 H POC Capillary Glucose 147 H Hemoglobin A1c Calcium 8.2 L Magnesium 2.1 Total Bilirubin AST ALT Alkaline Phosphatase Total Creatine Kinase C-Reactive Protein Total Protein Albumin Procalcitonin Nasal MRSA (PCR)
[2024-08-02 11:50] LABS: Glucose Point of Care 136 mg/dl (65-105)
[2024-08-02] MEDS: ASPIRIN 81 MG ENTERIC TABLET PO (16:21)
[2024-08-02 16:57] LABS: Glucose Point of Care 139 mg/dl (65-105)
[2024-08-02] MEDS: PRAVASTATIN SODIUM 20 MG TABLET 40 MG PO (20:21)
--- NOTE | 2024-08-02 21:15 | ECHO_ITS ---
Patient Info Name: Brittanie Bella Age: 69 years : 1955 Gender: Female Ht: 62 in Wt: 216 lbs BSA: 2.12 m2 HR: 61 bpm BP: 129 / 52 mmHg Heart Rhythm: Sinus Rhythm Technical Quality: Fair Exam Date: 08/02/2024 1:56 PM Exam Location: Echo Lab Patient Status: Inpatient Admit Date: 08/02/2024 Staff Ordering Physician: Sandy Rooney PA-C Dairy Equipment Mechanic: Evie Arboleda RDCS Attending Provider: Gisel Pina MD Referring Physician: Nevin GUDINO; Exam Type: CA echo doppler color flow Study Info Indications - PE Complete two-dimensional, color flow and Doppler transthoracic echocardiogram is performed. Summary 1. Complete two-dimensional, color flow and Doppler transthoracic echocardiogram is performed. 2. There is normal biventricular size and systolic function. Left Ventricle The left ventricle is normal in size and systolic function. The left ventricular ejection fraction is visually estimated to be 60-65%. Right Ventricle The right ventricle is normal in size and systolic function. Left Atria The left atrium is moderately dilated. Right Atria The right atrium is normal size. Atrial Septum The atrial septum is not well visualized. Aortic Valve The aortic valve is not well visualized. Pulmonic Valve The pulmonic valve is not well visualized. There is no color Doppler evidence of pulmonic regurgitation. Mitral Valve The mitral valve is not well visualized. Tricuspid Valve The tricuspid valve is not visualized. There is mild tricuspid regurgitation. Pericardium/Pleural There is trace amount of pericardial effusion. Inferior Vena Cava Normal inferior vena cava with >50% collapse upon inspiration consistent with normal right atrial pressure, 3 mmHg. Aorta The aortic root at the level of the sinus of Valsalva measures 3.1 cm in diameter. Left Ventricular Outflow Tract Name Value Normal LVOT 2D LVOT Diameter 2.0 cm LVOT Doppler LVOT Peak Gradient 5 mmHg LVOT Mean Gradient 2 mmHg LVOT VTI 24 cm LVOT VTI/AV VTI Ratio 0.8 LVOT Stroke Volume 79 ml LVOT CO 4.0 l/min LVOT CI 1.9 l/min/m2 Pulmonic Valve Name Value Normal RVOT Doppler RVOT Peak Gradient 2 mmHg PV Doppler PV Peak Gradient 4 mmHg Mitral Valve Name Value Normal MV Doppler MV Decel [place] 511 cm/s2 MV PHT 66 ms MV Area (PHT) 3.4 cm2 4.0-5.0 MV Diastolic Function MV E Peak Velocity 116 cm/s MV A Peak Velocity 99 cm/s MV E/A 1.2 MV Decel Time 226 ms MV Annular TDI MV E/e' (Septal) 17.5 <=8.0 MV E/e' (Lateral) 16.5 <=8.0 MV E/e' (Average) 17.0 Tricuspid Valve Name Value Normal TV Regurgitation Doppler TR Peak Velocity 329 cm/s TR Peak Gradient 43 mmHg Estimated PAP/RSVP RA Pressure 3 mmHg <=5 PA Systolic Pressure 46 mmHg <36 RV Systolic Pressure 46 mmHg <36 Aortic Valve Name Value Normal AV Doppler AV Peak Velocity 132 cm/s AV Peak Gradient 7 mmHg AV Mean Gradient 3 mmHg AV VTI 31 cm AV Area (Cont Eq VTI) 2.6 cm2 >=3.0 AV Area (Cont Eq Joshua) 2.8 cm2 AV Regurgitation 2D LVOT Area 3.3 cm2 Ventricles Name Value Normal LV Dimensions 2D/MM IVS Diastolic Thickness (2D) 0.7 cm 0.6-1.0 LVID Diastole (2D) 4.9 cm 3.8-5.2 LVIW Diastolic Thickness (2D) 0.9 cm 0.6-0.9 LVID Systole (2D) 3.0 cm 2.2-3.5 LVOT Diameter 2.0 cm LV Mass (2D Cubed) 135.39 g 67.00-162.00 LV Mass Index (2D Cubed) 64 g/m2 43-95 Relative Wall Thickness (2D) 0.37 LV Fractional Shortening/Ejection Fraction 2D/MM LV Fractional Shortening (2D) 39 % 27-45 LV EF (2D Teicholz) 69 % 54-74 LV Diastolic Volume (4C MOD) 113 ml LV EF (4C MOD) 61 % LV Diastolic Volume (2C MOD) 126 ml LV EF (2C MOD) 56 % LV Diastolic Volume (BP MOD) 122 ml 46-106 LV Diastolic Volume Index (BP MOD) 58 ml/m2 29-61 LV Systolic Volume (BP MOD) 51 ml 14-42 LV Systolic Volume Index (BP MOD) 24 ml/m2 8-24 LV EF (BP MOD) 59 % 54-74 LV Diastolic Length (4C) 6.7 cm LV Systolic Length (4C) 6.2 cm LV Stroke Volume (4C MOD) 69 ml Atria Name Value Normal LA Dimensions LA Volume (4C A-L) 110 ml LA Volume (BP A-L) 94 ml RA Dimensions RA Area (4C) 18.8 cm2 <=18.0 Report Signatures
[2024-08-03] VITALS (10 sets, daily range): BP systolic 123–149; BP diastolic 47–57; PULSE 46–68; RESP 15–16; TEMP 36.1–36.2; O2SAT 93–97
[2024-08-03 00:28] LABS: Glucose Point of Care 146 mg/dl (65-105)
[2024-08-03 01:13] LABS: Vancomycin Trough 9.5 ug/mL (10.0-20.0)
[2024-08-03] MEDS: VANCOMYCIN 1,750 MG/NS 500 ML 1,750 MG/500 ML BAG 250 MG IVPB (01:44)
[2024-08-03 06:57] LABS: Estimated CRCL calculation 94 ml/min; Estimated Glomerular Filt Rate > 60
[2024-08-03] MEDS: SERTRALINE HCL 50 MG TABLET 100 MG PO (07:47)
[2024-08-03] MEDS: ASPIRIN 81 MG ENTERIC TABLET PO ×2 (07:47→16:46)
[2024-08-03] MEDS: PANTOPRAZOLE 40 MG TABLET PO (07:47)
[2024-08-03] MEDS: CHOLECALCIFEROL 1,000 UNITS TABLET 2000 UNITS PO (07:47)
[2024-08-03] MEDS: SITagliptin PHOSPHATE 100 MG TABLET PO (07:47)
[2024-08-03] MEDS: POTASSIUM CHLORIDE 10 MEQ ER TABLET PO (07:47)
[2024-08-03 07:56] LABS: Glucose Point of Care 114 mg/dl (65-105)
[2024-08-03] MEDS: UMECLIDINIUM/VILANTEROL 62.5-25 MCG ELLIPTA 1 PUFF INHALATION (08:29)
[2024-08-03 08:58] LABS: Basophils Percent Auto 0.3 % (0.2-1.2); Eosinophils Absolute Auto 0.1 K/mm3 (0-0.3); Hematocrit 36.2 % (37.0-47.0); Hemoglobin 10.4 g/dL (12.0-15.0); Immature Granulocyte Absolute 0.07 K/mm3 (0.00-0.031); Immature Granulocyte Percent A 0.6 % (0-0.5); Lymphocytes Absolute Auto 1.81 K/mm3 (0.9-3.2); Lymphocytes Percent Auto 15.4 % (18.3-44.2); Mean Corpuscular HGB Conc 28.7 g/dl (32-36); Mean Corpuscular Hemoglobin 27.2 pg (26-34); Mean Corpuscular Volume 94.5 fl (80-100); Mean Platelet Volume 10.7 fl (7.4-10.4); Monocytes Absolute Auto 0.7 K/mm3 (0.1-0.6); Monocytes Percent Auto 6.1 % (2.6-8.5); Neutrophils Percent Auto 76.6 % (45.5-73.1); Nucleated Red Blood Cells Perc 0.2 % (0.0-0.2); Platelet Count Result 229 k/mm3 (150-375); Red Blood Count 3.83 M/mm3 (4.2-5.4); Red Cell Distribution Width 18.2 % (11.5-14.5); White Blood Count 11.8 K/mm3 (4.5-10.0)
[2024-08-03 09:24] LABS: Anisocytosis 1+; Hypochromasia 1+; Ovalocytes 1+; Platelet Estimate Adequate (Adequate); Schistocytes None Seen
--- NOTE | 2024-08-03 09:53 | P.PNOP_ITS ---
Progress Note: A&P Assessment and Plan (1) Status post right knee replacement: Code(s): Z96.651 - Presence of right artificial knee joint Status: Acute Assessment and Plan: POD #10 : Right TKA Continue PT/OT. WBAT. Walker. HIGH FALL RISK. Continue pain control. Ice knee. Patient to have ice machine brought back in. Protect skin. DVT/PE treatment per hospitalist currently, on Lovenox Q12 hr. Erick hose to the right lower extremity to assist with swelling control. Approved by Dr. Koch. Dressing removed. Applied vaseline gauze over known blister, new dressing placed on TKA incision. No signs of active infection of the right TKA. No malodor. No purulence. No severe tenderness to touch or signs of active hematoma. Will continue to monitor. Bowel Regimen. Dispo: Home with resumed Home Health pending medical clearance Will continue to monitor. (2) Cellulitis of right leg: Code(s): L03.115 - Cellulitis of right lower limb Status: Acute Assessment and Plan: Concern for right LE cellulitis. No signs or concerns of incisional wound and/or infection. IV antibiotics currently for cellulitis. Will continue to monitor for improvement. Transition to oral antibiotics prior to d/c. (3) Pulmonary embolism: Code(s): I26.99 - Other pulmonary embolism without acute cor pulmonale Status: Acute Assessment and Plan: Patient d/c'd on 81 mg Aspirin PO BID for DVT Prophylaxis. Found to have left LE DVT and PE, requiring readmission. No right DVT. On Lovenox currently. Will require continued anticoagulation at d/c. Plan Reviewed history, exam, radiographs and current labs with attending MD and covering surgeon, Dr. Koch, who agrees with current plan as indicated above. No further recommendations from Dr. Koch at this time. Time Spent With Patient Time with patient: 15 - 25 minutes Subjective Subjective Date/Time Seen: 08/03/24 09:53 Post Op day: 10 Interval history: POD #10: Right TKA Patient currently being treated for a pulmonary embolism status post right TKA. She is postop day 10. She reports some improvement in shortness of breath overnight. reports mild improvement in right lower extremity pain. No new concerns today. Hopeful to begin physical therapy. Review of Systems Review of Systems: All systems reviewed & are unremarkable except as noted in HPI and below Exam Const: General: comfortable Resp: Effort & Inspection: able to speak in complete sentences Other: On nasal cannula O2 Cardio: Rate: regular rate Rhythm: regular rhythm GI: GI Palp: Yes Soft to palpation Skin: Other: right lower extremity with ecchymosis and mild erythema Neuro: General: gait normal Speech: normal speech Sensory Exam: normal sensation Extrem: Right lower extremity: knee ( See below) Details: swelling ( as expected, no evidence of hematoma), abnormal ROM ( limitations with range of motion consistent with recent surgical intervention) Details: pain with active ROM during; no pain with passive ROM, ecchymosis and warmth ( mild, anterior tibia) Other: Dressing removed of the right knee. Incision well approximated. [place] in place. No active drainage. Blister healing well. No malodor. No purulence. Knee without evidence of active hematoma. Active and passive range of motion of the right knee without severe pain. Limitations in range of motion consistent with recent surgical intervention. Mild erythema to the right anterior tibia, Improved. Ecchymosis consistent with recent TKA. Swelling of the right lower extremity 2 to 3+ pitting edema. Pedal pulses dopplered. Sensation intact. Objective Data Vital Signs Vital Signs: Vital Signs - 24 hr 08/02/24 12:00 08/02/24 12:00 08/02/24 16:00 Temperature 36.4 C Pulse Rate 72 54 L 59 L Respiratory Rate 16 Blood Pressure 126/52 L Pulse Oximetry 97 Oxygen Delivery Oxygen Flow Rate 08/02/24 16:00 08/02/24 20:00 08/02/24 20:00 Temperature 36.4 C 37.1 C Pulse Rate 78 54 L 52 L Respiratory Rate 16 16 Blood Pressure 128/54 L 118/68 Pulse Oximetry 97 97 Oxygen Delivery Oxygen Flow Rate 08/02/24 22:20 08/03/24 00:00 08/03/24 04:00 Temperature Pulse Rate 89 48 L 46 L Respiratory Rate 23 H Blood Pressure Pulse Oximetry 94 Oxygen Delivery CPAP Oxygen Flow Rate 08/03/24 04:00 08/03/24 07:40 08/03/24 08:00 Temperature 36.1 C L 36.2 C L Pulse Rate 49 L 56 L Respiratory Rate 16 16 Blood Pressure 149/56 H 129/47 L Pulse Oximetry 94 97 97 Oxygen Delivery Nasal Cannula Oxygen Flow Rate 2 08/03/24 08:29 Temperature Pulse Rate Respiratory Rate Blood Pressure Pulse Oximetry 93 Oxygen Delivery Nasal Cannula Oxygen Flow Rate 2 Intake/Output Intake/Output: Intake & Output 07/31/24 08/01/24 08/02/24 08/03/24 23:59 23:59 23:59 23:59 Intake Total 50 3077 1040 Output Total 1110 200 Balance 50 1967 840 Meds/Results Medications: Active Medications Generic Name Dose Route Start Last Admin Trade Name Freq PRN Reason Stop Dose Admin Acetaminophen 650 mg 08/01/24 21:13 Acetaminophen 325 Mg Tablet PO Q4H PRN Mild Pain (1-3) or Fever Hydrocodone Bitart/Acetaminophen 1 tab 08/01/24 22:46 08/02/24 20:24 Hydrocodone/Acetaminophen (*Crx) 5-325 Mg Tablet PO 1 tab Q6H PRN Administration Pain Rated 4-6 Albuterol 1 puff 08/01/24 22:45 Albuterol Sulfate (*Sp) Aerosol 1 Puff INHALATION Q4HRT PRN bronchospasm Aspirin 81 mg 08/02/24 17:00 08/03/24 07:47 Aspirin 81 Mg Enteric Tablet PO 81 mg BID RADHA Administration Dextrose 12.5 gm 08/01/24 22:21 Dextrose 50% 25 Gm/50 Ml Syringe IV PUSH PRN PRN Hypoglycemia Protocol Diazepam 2 mg 08/01/24 22:45 08/01/24 23:26 Diazepam (*Crx) 2 Mg Tablet PO 2 mg Q6H PRN Administration anxiety Enoxaparin Sodium 98 mg 08/01/24 23:00 08/02/24 22:14 Enoxaparin 100 Mg/Ml Syringe SUB-Q 98 mg Q12H RADHA Administration Glucagon 1 mg 08/01/24 22:21 Glucagon For Inj 1 Mg Vial IM PRN PRN Hypoglycemia Protocol Glucose 15 gm 08/01/24 22:21 Glucose Oral Gel 15 Gm Of Glucse In 37.5 Gm Tube PO PRN PRN Hypoglycemia Protocol Dextrose 1,000 mls @ 100 mls/hr 08/01/24 22:21 Dextrose 5% 1,000 Ml IVPB PRN PRN Hypoglycemia Protocol Ceftriaxone Sodium 2 gm in 100 mls @ 200 mls/hr 08/02/24 11:00 08/02/24 11:40 Rocephin 2 Gm/Ns 100 Ml IVPB Infused Q24H RADHA Infusion Vancomycin HCl 1,750 mg in 500 mls @ 250 mls/hr 08/03/24 02:00 08/03/24 03:44 Vancomycin 1,750 Mg/Ns 500 Ml IVPB Infused Q12H RADHA Infusion Insulin Aspart 3 - 6 units 08/02/24 08:00 08/03/24 08:04 Insulin Aspart (*Bkc) 100 Units/Ml SUB-Q Not Given TIDWM RADHA Protocol Insulin Aspart 1 - 3 units 08/02/24 21:00 08/02/24 22:21 Insulin Aspart (*Bkc) 100 Units/Ml SUB-Q Not Given HS RADHA Protocol Nebivolol 20 mg 08/02/24 09:00 08/03/24 09:23 Nebivolol Hcl 5 Mg Tablet PO Not Given DAILY RADHA Oxycodone/Acetaminophen 1 tablet 08/01/24 22:45 08/01/24 23:25 Oxycodone/Acetaminophen (*Crx) 5-325 Mg Tablet PO 1 tablet Q6H PRN Administration pain 7-10 Pantoprazole Sodium 40 mg 08/02/24 09:00 08/03/24 07:47 Pantoprazole 40 Mg Tablet PO 40 mg QAM RADHA Administration Perflutren Lipid Microsphere 0 ml 08/01/24 21:13 Perflutren Lipid Microspheres 1.5 Ml Vial Diluted To 10 Ml Total Volume IV PUSH 08/04/24 21:15 ONCE PRN adequate visualization Protocol Potassium Chloride 10 meq 08/02/24 09:00 08/03/24 07:47 Potassium Chloride 10 Meq Er Tablet PO 10 meq DAILY RADHA Administration Pravastatin Sodium 40 mg 08/01/24 23:35 08/02/24 20:21 Pravastatin Sodium 20 Mg Tablet PO 40 mg QHS RADHA Administration Sertraline HCl 100 mg 08/02/24 09:00 08/03/24 07:47 Sertraline Hcl 50 Mg Tablet PO 100 mg DAILY RADHA Administration Sitagliptin Phosphate 100 mg 08/02/24 09:00 08/03/24 07:47 Sitagliptin Phosphate 100 Mg Tablet PO 100 mg QAM RADHA Administration Umeclidinium/Vilanterol 1 puff 08/02/24 08:00 08/03/24 08:29 Umeclidinium/Vilanterol 62.5-25 Mcg Ellipta INHALATION 1 puff DAILYRT RADHA Administration Vitamin D 2,000 units 08/02/24 09:00 08/03/24 07:47 Cholecalciferol 1,000 Units Tablet PO 2,000 units DAILY RADHA Administration Radiology Results: ITS Impressions Venous Doppler Study 08/01/24 23:41 IMPRESSION: Deep venous thrombosis of the left posterior tibial and peroneal veins, as detailed above. Labs Labs: Laboratory Results - last 24 hr 08/02/24 08/02/24 08/02/24 11:41 16:52 20:29 WBC RBC Hgb Hct MCV MCH MCHC RDW Plt Count MPV Immature Gran % (Auto) Neut % (Auto) Lymph % (Auto) [place] % (Auto) Eos % (Auto) Baso % (Auto) Lymph # (Auto) [place] # (Auto) Eos # (Auto) Baso # (Auto) Abs Immat Gran (auto) Absolute Neuts (auto) Absolute Nucleated RBC Band Neutrophils % Nucleated RBC % Platelet Estimate Hypochromasia Anisocytosis Ovalocytes Schistocytes Creatinine Estim Creat Clear Calc Estimated GFR POC Capillary Glucose 136 H 139 H 146 H Vancomycin Trough 08/03/24 08/03/24 08/03/24 00:52 06:38 06:43 WBC 11.8 H RBC 3.83 L Hgb 10.4 L Hct 36.2 L MCV 94.5 D MCH 27.2 MCHC 28.7 L RDW 18.2 H Plt Count 229 MPV 10.7 H Immature Gran % (Auto) 0.6 H Neut % (Auto) 76.6 H Lymph % (Auto) 15.4 L [place] % (Auto) 6.1 Eos % (Auto) 1.0 Baso % (Auto) 0.3 Lymph # (Auto) 1.81 [place] # (Auto) 0.7 H Eos # (Auto) 0.1 Baso # (Auto) 0.0 Abs Immat Gran (auto) 0.07 H Absolute Neuts (auto) 9.0 H Absolute Nucleated RBC 0.020 H Band Neutrophils % Not Reportable Nucleated RBC % 0.2 Platelet Estimate Adequate Hypochromasia 1+ Anisocytosis 1+ Ovalocytes 1+ Schistocytes None seen Creatinine 0.50 L Estim Creat Clear Calc 94 Estimated GFR > 60 POC Capillary Glucose Vancomycin Trough 9.5 L 08/03/24 07:53 WBC RBC Hgb Hct MCV MCH MCHC RDW Plt Count MPV Immature Gran % (Auto) Neut % (Auto) Lymph % (Auto) [place] % (Auto) Eos % (Auto) Baso % (Auto) Lymph # (Auto) [place] # (Auto) Eos # (Auto) Baso # (Auto) Abs Immat Gran (auto) Absolute Neuts (auto) Absolute Nucleated RBC Band Neutrophils % Nucleated RBC % Platelet Estimate Hypochromasia Anisocytosis Ovalocytes Schistocytes Creatinine Estim Creat Clear Calc Estimated GFR POC Capillary Glucose 114 H Vancomycin Trough
[2024-08-03] MEDS: cefTRIAXone 2 GM/NS 100 ML 2 GM/100 ML BAG IVPB (10:13)
[2024-08-03] MEDS: ENOXAPARIN 100 MG/ML SYRINGE 98 MG SUB-Q ×2 (10:14→22:04)
[2024-08-03] MEDS: HYDROcodone/acetaminophen (*CRX) 5-325 MG TABLET 1 TAB PO (10:25)
[2024-08-03 12:02] LABS: Glucose Point of Care 111 mg/dl (65-105)
--- NOTE | 2024-08-03 14:07 | P.PNIM_ITS ---
Progress Note: A&P Assessment and Plan (1) Status post right knee replacement: Code(s): Z96.651 - Presence of right artificial knee joint Status: Acute (2) Cellulitis of right leg: Code(s): L03.115 - Cellulitis of right lower limb Status: Acute (3) Pulmonary embolism: Qualifiers: Acute cor pulmonale presence: unspecified Chronicity: acute Pulmonary embolism type: unspecified Qualified Code(s): I26.99 - Other pulmonary embolism without acute cor pulmonale Code(s): I26.99 - Other pulmonary embolism without acute cor pulmonale Status: Acute (4) Hypertension: Code(s): I10 - Essential (primary) hypertension Status: Acute (5) Type 2 diabetes mellitus: Code(s): E11.9 - Type 2 diabetes mellitus without complications Status: Acute (6) Chronic obstructive pulmonary disease: Code(s): J44.9 - Chronic obstructive pulmonary disease, unspecified Status: Acute (7) Obstructive sleep apnea on CPAP: Code(s): G47.33 - Obstructive sleep apnea (adult) (pediatric) Status: Acute (8) DVT (deep venous thrombosis): Code(s): I82.409 - Acute embolism and thrombosis of unspecified deep veins of unspecified lower extremity Status: Acute Plan Cellulitis of right lower extremity: The patient presented to the OSH with complaints of right knee redness and swelling Her right knee was replaced on 07/24/[address] Koch (ortho surg) D/C ceftriaxone and vancomycin, switching to doxy & keflex PO in preparation for discharge. -->Consultation with Dr. Koch as the ED provider was concerned for infection in that knee given findings cellulitis Acute Pulmonary Embolism Patient presented to OSH ED with a chief complaint of SOB Dx with bilateral pulmonary emboli without evidence of heart strain on imaging (EF of 60-65% VIA Echo) Pending echocardiogram Continue enoxaparin 1 mg/kg q.12 hours - per pt, ortho service told her that she would be started on oral medication at discharge Acute Deep Vein Thrombosis Lower extremity venous Doppler ultrasounds shows left-sided DVT Hypertension Blood pressure stable, asymptomatic - 129/47, 74bpm Nursing held HTN medication today (Nebivolol) Type 2 diabetes Initiate sliding scale insulin, Accu-Cheks, and hypoglycemic protocol RAS on CPAP CPAP provided for the patient to use while hospitalized Subjective Date/time seen: 08/03/24 13:55 Interval history: I examined the pt today, denies any SOB, CP, or LLE pain. Pt c/o RLE swelling and tenderness, per normal d/t R TKA on 07/24/[address] Koch at bedside during my assessment. VSS, nursing held BP medication today due to parameters being met. Pt reports that she is feeling good and better overall today. Pt remains on 2L NC for comfort , plan to D/C completely prior to going home due to not wearing at baseline. Spoke to ortho [employer] and ID Pharm today and plan to D/C vanc + Rocephin and change to doxy & keflex to prepare for discharge home. Pt to also start PT/OT today, pt agreeable. Review of Systems Review of Systems: All systems reviewed & are unremarkable except as noted in HPI and below Exam Narrative: GENERAL: Very pleasant, in no acute distress. Well-nourished. - EYES: EOMI. Anicteric. - HENT: Moist mucous membranes. - LUNGS: Clear to auscultation bilateral ly, no wheezing, rhonchi, or rales. - CARDIOVASCULAR: Regular rate and rhyth m. No murmur. No JVD. - ABDOMEN: Soft, non-tender and non-dist ended. No palpable masses. - EXTREMITIES: Peripheral pulses 2+ RLE: Swelling 2+, erythema, healing ecchymosis just superior to knee down throughout foot, knee surgical wound is covered, no drainage noted. ANDREW hose on. LLE: No left calf tenderness. - NEUROLOGIC: No focal neurological defi cits. CN II-XII grossly intact. - PSYCHIATRIC: Awake, Alert and oriented x 4. Appropriate mood and affect. - SKIN: No rashes or lesions. Warm. - LYMPH: No cervical lymphadenopathy. Objective Data Vital Signs Vital Signs: Vital Signs - 24 hr 08/02/24 16:00 08/02/24 16:00 08/02/24 20:00 Temperature 97.6 F Pulse Rate 59 L 78 54 L Respiratory Rate 16 Blood Pressure 128/54 L Pulse Oximetry 97 Oxygen Delivery Oxygen Flow Rate 08/02/24 20:00 08/02/24 22:20 08/03/24 00:00 Temperature 98.8 F Pulse Rate 52 L 89 48 L Respiratory Rate 16 23 H Blood Pressure 118/68 Pulse Oximetry 97 94 Oxygen Delivery CPAP Oxygen Flow Rate 08/03/24 04:00 08/03/24 04:00 08/03/24 07:40 Temperature 97 F L 97.1 F L Pulse Rate 46 L 49 L 56 L Respiratory Rate 16 16 Blood Pressure 149/56 H 129/47 L Pulse Oximetry 94 97 Oxygen Delivery Oxygen Flow Rate 08/03/24 08:00 08/03/24 08:29 Temperature Pulse Rate Respiratory Rate Blood Pressure Pulse Oximetry 97 93 Oxygen Delivery Nasal Cannula Nasal Cannula Oxygen Flow Rate 2 2 Intake/Output Intake/Output: Intake & Output 07/31/24 08/01/24 08/02/24 08/03/24 23:59 23:59 23:59 23:59 Intake Total 50 3077 1497 Output Total 1110 675 Balance 50 6537 822 Meds/Results Medications: Active Medications Generic Name Dose Route Start Last Admin Trade Name Freq PRN Reason Stop Dose Admin Acetaminophen 650 mg 08/01/24 21:13 Acetaminophen 325 Mg Tablet PO Q4H PRN Mild Pain (1-3) or Fever Hydrocodone Bitart/Acetaminophen 1 tab 08/01/24 22:46 08/03/24 10:25 Hydrocodone/Acetaminophen (*Crx) 5-325 Mg Tablet PO 1 tab Q6H PRN Administration Pain Rated 4-6 Albuterol 1 puff 08/01/24 22:45 Albuterol Sulfate (*Sp) Aerosol 1 Puff INHALATION Q4HRT PRN bronchospasm Aspirin 81 mg 08/02/24 17:00 08/03/24 07:47 Aspirin 81 Mg Enteric Tablet PO 81 mg BID RADHA Administration Cephalexin HCl 500 mg 08/04/24 06:00 Cephalexin 500 Mg Capsule PO 08/08/24 18:01 Q6HR [facility] Dextrose 12.5 gm 08/01/24 22:21 Dextrose 50% 25 Gm/50 Ml Syringe IV PUSH PRN PRN Hypoglycemia Protocol Diazepam 2 mg 08/01/24 22:45 08/01/24 23:26 Diazepam (*Crx) 2 Mg Tablet PO 2 mg Q6H PRN Administration anxiety Doxycycline Hyclate 100 mg 08/03/24 21:00 Doxycycline Hyclate 100 Mg Tablet PO 08/08/24 21:01 Q12HR RADHA Enoxaparin Sodium 98 mg 08/01/24 23:00 08/03/24 10:14 Enoxaparin 100 Mg/Ml Syringe SUB-Q 98 mg Q12H RADHA Administration Glucagon 1 mg 08/01/24 22:21 Glucagon For Inj 1 Mg Vial IM PRN PRN Hypoglycemia Protocol Glucose 15 gm 08/01/24 22:21 Glucose Oral Gel 15 Gm Of Glucse In 37.5 Gm Tube PO PRN PRN Hypoglycemia Protocol Dextrose 1,000 mls @ 100 mls/hr 08/01/24 22:21 Dextrose 5% 1,000 Ml IVPB PRN PRN Hypoglycemia Protocol Insulin Aspart 3 - 6 units 08/02/24 08:00 08/03/24 11:57 Insulin Aspart (*Bkc) 100 Units/Ml SUB-Q Not Given TIDWM RADHA Protocol Insulin Aspart 1 - 3 units 08/02/24 21:00 08/02/24 22:21 Insulin Aspart (*Bkc) 100 Units/Ml SUB-Q Not Given HS RADHA Protocol Nebivolol 20 mg 08/02/24 09:00 08/03/24 09:23 Nebivolol Hcl 5 Mg Tablet PO Not Given DAILY RADHA Oxycodone/Acetaminophen 1 tablet 08/01/24 22:45 08/01/24 23:25 Oxycodone/Acetaminophen (*Crx) 5-325 Mg Tablet PO 1 tablet Q6H PRN Administration pain 7-10 Pantoprazole Sodium 40 mg 08/02/24 09:00 08/03/24 07:47 Pantoprazole 40 Mg Tablet PO 40 mg QAM RADHA Administration Perflutren Lipid Microsphere 0 ml 08/01/24 21:13 Perflutren Lipid Microspheres 1.5 Ml Vial Diluted To 10 Ml Total Volume IV PUSH 08/04/24 21:15 ONCE PRN adequate visualization Protocol Potassium Chloride 10 meq 08/02/24 09:00 08/03/24 07:47 Potassium Chloride 10 Meq Er Tablet PO 10 meq DAILY RADHA Administration Pravastatin Sodium 40 mg 08/01/24 23:35 08/02/24 20:21 Pravastatin Sodium 20 Mg Tablet PO 40 mg QHS RADHA Administration Sertraline HCl 100 mg 08/02/24 09:00 08/03/24 07:47 Sertraline Hcl 50 Mg Tablet PO 100 mg DAILY RADHA Administration Sitagliptin Phosphate 100 mg 08/02/24 09:00 08/03/24 07:47 Sitagliptin Phosphate 100 Mg Tablet PO 100 mg QAM RADHA Administration Umeclidinium/Vilanterol 1 puff 08/02/24 08:00 08/03/24 08:29 Umeclidinium/Vilanterol 62.5-25 Mcg Ellipta INHALATION 1 puff DAILYRT RADHA Administration Vitamin D 2,000 units 08/02/24 09:00 08/03/24 07:47 Cholecalciferol 1,000 Units Tablet PO 2,000 units DAILY RADHA Administration Radiology Results: ITS Impressions Venous Doppler Study 08/01/24 23:41 IMPRESSION: Deep venous thrombosis of the left posterior tibial and peroneal veins, as detailed above. Labs Labs: Laboratory Results - last 24 hr 08/02/24 08/02/24 08/03/24 16:52 20:29 00:52 WBC RBC Hgb Hct MCV MCH MCHC RDW Plt Count MPV Immature Gran % (Auto) Neut % (Auto) Lymph % (Auto) [place] % (Auto) Eos % (Auto) Baso % (Auto) Lymph # (Auto) [place] # (Auto) Eos # (Auto) Baso # (Auto) Abs Immat Gran (auto) Absolute Neuts (auto) Absolute Nucleated RBC Band Neutrophils % Nucleated RBC % Platelet Estimate Hypochromasia Anisocytosis Ovalocytes Schistocytes Creatinine Estim Creat Clear Calc Estimated GFR POC Capillary Glucose 139 H 146 H Vancomycin Trough 9.5 L 08/03/24 08/03/24 08/03/24 06:38 06:43 07:53 WBC 11.8 H RBC 3.83 L Hgb 10.4 L Hct 36.2 L MCV 94.5 D MCH 27.2 MCHC 28.7 L RDW 18.2 H Plt Count 229 MPV 10.7 H Immature Gran % (Auto) 0.6 H Neut % (Auto) 76.6 H Lymph % (Auto) 15.4 L [place] % (Auto) 6.1 Eos % (Auto) 1.0 Baso % (Auto) 0.3 Lymph # (Auto) 1.81 [place] # (Auto) 0.7 H Eos # (Auto) 0.1 Baso # (Auto) 0.0 Abs Immat Gran (auto) 0.07 H Absolute Neuts (auto) 9.0 H Absolute Nucleated RBC 0.020 H Band Neutrophils % Not Reportable Nucleated RBC % 0.2 Platelet Estimate Adequate Hypochromasia 1+ Anisocytosis 1+ Ovalocytes 1+ Schistocytes None seen Creatinine 0.50 L Estim Creat Clear Calc 94 Estimated GFR > 60 POC Capillary Glucose 114 H Vancomycin Trough 08/03/24 11:54 WBC RBC Hgb Hct MCV MCH MCHC RDW Plt Count MPV Immature Gran % (Auto) Neut % (Auto) Lymph % (Auto) [place] % (Auto) Eos % (Auto) Baso % (Auto) Lymph # (Auto) [place] # (Auto) Eos # (Auto) Baso # (Auto) Abs Immat Gran (auto) Absolute Neuts (auto) Absolute Nucleated RBC Band Neutrophils % Nucleated RBC % Platelet Estimate Hypochromasia Anisocytosis Ovalocytes Schistocytes Creatinine Estim Creat Clear Calc Estimated GFR POC Capillary Glucose 111 H Vancomycin Trough Quality VTE Prophylaxis VTE prophylaxis: pharmacologic ordered (on enoxaparin for pulmonary embolism)
[2024-08-03 16:49] LABS: Glucose Point of Care 103 mg/dl (65-105)
[2024-08-03] MEDS: DOXYCYCLINE HYCLATE 100 MG TABLET PO (20:25)
[2024-08-03] MEDS: PRAVASTATIN SODIUM 20 MG TABLET 40 MG PO (20:25)
[2024-08-03 20:41] LABS: Glucose Point of Care 163 mg/dl (65-105)
[2024-08-04] VITALS (11 sets, daily range): BP systolic 157; BP diastolic 67; PULSE 49–69; RESP 15–18; TEMP 36.6; O2SAT 85–98
[2024-08-04] MEDS: CEPHALEXIN 500 MG CAPSULE PO ×2 (06:03→12:22)
[2024-08-04] MEDS: UMECLIDINIUM/VILANTEROL 62.5-25 MCG ELLIPTA 1 PUFF INHALATION (07:52)
[2024-08-04 08:03] LABS: Glucose Point of Care 114 mg/dl (65-105)
[2024-08-04] MEDS: DOXYCYCLINE HYCLATE 100 MG TABLET PO (08:56)
[2024-08-04] MEDS: POTASSIUM CHLORIDE 10 MEQ ER TABLET PO (08:57)
[2024-08-04] MEDS: PANTOPRAZOLE 40 MG TABLET PO (08:59)
[2024-08-04] MEDS: CHOLECALCIFEROL 1,000 UNITS TABLET 2000 UNITS PO (08:59)
[2024-08-04] MEDS: SITagliptin PHOSPHATE 100 MG TABLET PO (08:59)
[2024-08-04] MEDS: SERTRALINE HCL 50 MG TABLET 100 MG PO (08:59)
[2024-08-04] MEDS: ASPIRIN 81 MG ENTERIC TABLET PO (08:59)
[2024-08-04] MEDS: NEBIVOLOL HCL 5 MG TABLET 20 MG PO (09:00)
--- NOTE | 2024-08-04 09:29 | PM.PNORT ---
Progress Note: A&P Assessment and Plan (1) Status post right knee replacement: Code(s): Z96.651 - Presence of right artificial knee joint Status: Acute Assessment and Plan: POD #11: Right TKA Continue PT/OT. WBAT. Walker. HIGH FALL RISK. Continue pain control. Ice knee. Patient to have ice machine brought back in. Protect skin. DVT/PE treatment per hospitalist currently, on Lovenox Q12 hr. Erick hose to the right lower extremity to assist with swelling control. No signs of active infection of the right TKA. Bowel Regimen. Dispo: Home with resumed Home Health pending medical clearance Will continue to monitor. (2) Cellulitis of right leg: Code(s): L03.115 - Cellulitis of right lower limb Status: Acute Assessment and Plan: IV antibiotics currently for cellulitis. Will continue to monitor for improvement. Transition to oral antibiotics prior to d/c. (3) Pulmonary embolism: Qualifiers: Pulmonary embolism type: unspecified Chronicity: acute Acute cor pulmonale presence: unspecified Qualified Code(s): I26.99 - Other pulmonary embolism without acute cor pulmonale Code(s): I26.99 - Other pulmonary embolism without acute cor pulmonale Status: Acute Assessment and Plan: On Lovenox currently. Will require continued anticoagulation at d/c. Time Spent With Patient Time with patient: 15 - 25 minutes Subjective Subjective Date/Time Seen: 08/04/24 09:29 Post Op day: 11 (11) Principal diagnosis: Right knee arthritis Interval history: POD #11: Right TKA Patient currently being treated for a pulmonary embolism status post right TKA. She reports some improvement in shortness of breath overnight. reports mild improvement in right lower extremity pain. No new concerns today. Up in chair. Exam Const: General: comfortable Resp: Effort & Inspection: able to speak in complete sentences Other: On nasal cannula O2 Skin: Other: right lower extremity with ecchymosis and mild erythema Neuro: General: gait normal Speech: normal speech Sensory Exam: normal sensation Extrem: Right lower extremity: knee ( See below) Details: swelling ( as expected, no evidence of hematoma), abnormal ROM ( limitations with range of motion consistent with recent surgical intervention) Details: pain with active ROM during; no pain with passive ROM, ecchymosis and warmth ( mild, anterior tibia) Other: Dressing removed yesterday. Incision well approximated. Олге in place. No active drainage. No malodor. No purulence. Knee without evidence of active hematoma. Active and passive range of motion of the right knee without severe pain. Limitations in range of motion consistent with recent surgical intervention. Mild erythema to the right anterior tibia, Improved. Ecchymosis consistent with recent TKA. Swelling of the right lower extremity 2 to 3+ pitting edema. Pedal pulses dopplered. Sensation intact. Objective Data Vital Signs Vital Signs: Vital Signs - 24 hr 08/03/24 12:00 08/03/24 13:48 08/03/24 15:04 Temperature Pulse Rate 68 Respiratory Rate Blood Pressure Pulse Oximetry Oxygen Delivery Nasal Cannula Nasal Cannula Oxygen Flow Rate 2 2 08/03/24 16:00 08/03/24 20:00 08/03/24 21:41 Temperature 97.1 F L Pulse Rate 51 L 53 L 56 L Respiratory Rate 16 Blood Pressure 123/57 L Pulse Oximetry 95 Oxygen Delivery Oxygen Flow Rate 08/03/24 22:16 08/04/24 00:00 08/04/24 03:00 Temperature Pulse Rate 59 L 49 L Respiratory Rate 15 15 Blood Pressure Pulse Oximetry 97 97 Oxygen Delivery CPAP CPAP Oxygen Flow Rate 08/04/24 04:00 08/04/24 06:00 08/04/24 07:52 Temperature 98 F Pulse Rate 53 L 69 Respiratory Rate 18 Blood Pressure 157/67 H Pulse Oximetry 98 95 Oxygen Delivery Nasal Cannula Oxygen Flow Rate 1.5 08/04/24 08:22 08/04/24 08:26 08/04/24 09:00 Temperature Pulse Rate 67 Respiratory Rate Blood Pressure Pulse Oximetry 85 L 91 Oxygen Delivery Room Air Nasal Cannula Oxygen Flow Rate 1 Intake/Output Intake/Output: Intake & Output 08/01/24 08/02/24 08/03/24 08/04/24 23:59 23:59 23:59 23:59 Intake Total 50 0510 4138 370 Output Total 3041 1425 1000 Balance 50 1091 360 -097 Meds/Results Medications: Active Medications Generic Name Dose Route Start Last Admin Trade Name Freq PRN Reason Stop Dose Admin Acetaminophen 650 mg 08/01/24 21:13 Acetaminophen 325 Mg Tablet PO Q4H PRN Mild Pain (1-3) or Fever Hydrocodone Bitart/Acetaminophen 1 tab 08/01/24 22:46 08/03/24 10:25 Hydrocodone/Acetaminophen (*Crx) 5-325 Mg Tablet PO 1 tab Q6H PRN Administration Pain Rated 4-6 Albuterol 1 puff 08/01/24 22:45 Albuterol Sulfate (*Sp) Aerosol 1 Puff INHALATION Q4HRT PRN bronchospasm Aspirin 81 mg 08/02/24 17:00 08/04/24 08:59 Aspirin 81 Mg Enteric Tablet PO 81 mg BID RADHA Administration Cephalexin HCl 500 mg 08/04/24 06:00 08/04/24 06:03 Cephalexin 500 Mg Capsule PO 08/08/24 18:01 500 mg Q6HR RADHA Administration Dextrose 12.5 gm 08/01/24 22:21 Dextrose 50% 25 Gm/50 Ml Syringe IV PUSH PRN PRN Hypoglycemia Protocol Diazepam 2 mg 08/01/24 22:45 08/01/24 23:26 Diazepam (*Crx) 2 Mg Tablet PO 2 mg Q6H PRN Administration anxiety Doxycycline Hyclate 100 mg 08/03/24 21:00 08/04/24 08:56 Doxycycline Hyclate 100 Mg Tablet PO 08/08/24 21:01 100 mg Q12HR RADHA Administration Enoxaparin Sodium 98 mg 08/01/24 23:00 08/03/24 22:04 Enoxaparin 100 Mg/Ml Syringe SUB-Q 98 mg Q12H RADHA Administration Glucagon 1 mg 08/01/24 22:21 Glucagon For Inj 1 Mg Vial IM PRN PRN Hypoglycemia Protocol Glucose 15 gm 08/01/24 22:21 Glucose Oral Gel 15 Gm Of Glucse In 37.5 Gm Tube PO PRN PRN Hypoglycemia Protocol Dextrose 1,000 mls @ 100 mls/hr 08/01/24 22:21 Dextrose 5% 1,000 Ml IVPB PRN PRN Hypoglycemia Protocol Insulin Aspart 3 - 6 units 08/02/24 08:00 08/04/24 08:28 Insulin Aspart (*Bkc) 100 Units/Ml SUB-Q Not Given TIDWM RADHA Protocol Insulin Aspart 1 - 3 units 08/02/24 21:00 08/03/24 20:55 Insulin Aspart (*Bkc) 100 Units/Ml SUB-Q Not Given HS RADHA Protocol Nebivolol 20 mg 08/02/24 09:00 08/04/24 09:00 Nebivolol Hcl 5 Mg Tablet PO 20 mg DAILY RADHA Administration Oxycodone/Acetaminophen 1 tablet 08/01/24 22:45 08/01/24 23:25 Oxycodone/Acetaminophen (*Crx) 5-325 Mg Tablet PO 1 tablet Q6H PRN Administration pain 7-10 Pantoprazole Sodium 40 mg 08/02/24 09:00 08/04/24 08:59 Pantoprazole 40 Mg Tablet PO 40 mg QAM RADHA Administration Perflutren Lipid Microsphere 0 ml 08/01/24 21:13 Perflutren Lipid Microspheres 1.5 Ml Vial Diluted To 10 Ml Total Volume IV PUSH 08/04/24 21:15 ONCE PRN adequate visualization Protocol Potassium Chloride 10 meq 08/02/24 09:00 08/04/24 08:57 Potassium Chloride 10 Meq Er Tablet PO 10 meq DAILY RADHA Administration Pravastatin Sodium 40 mg 08/01/24 23:35 08/03/24 20:25 Pravastatin Sodium 20 Mg Tablet PO 40 mg QHS RADHA Administration Sertraline HCl 100 mg 08/02/24 09:00 08/04/24 08:59 Sertraline Hcl 50 Mg Tablet PO 100 mg DAILY RADHA Administration Sitagliptin Phosphate 100 mg 08/02/24 09:00 08/04/24 08:59 Sitagliptin Phosphate 100 Mg Tablet PO 100 mg QAM RADHA Administration Umeclidinium/Vilanterol 1 puff 08/02/24 08:00 08/04/24 07:52 Umeclidinium/Vilanterol 62.5-25 Mcg Ellipta INHALATION 1 puff DAILYRT RADHA Administration Vitamin D 2,000 units 08/02/24 09:00 08/04/24 08:59 Cholecalciferol 1,000 Units Tablet PO 2,000 units DAILY RADHA Administration Radiology Results: ITS Impressions Venous Doppler Study 08/01/24 23:41 IMPRESSION: Deep venous thrombosis of the left posterior tibial and peroneal veins, as detailed above. Labs Labs: Laboratory Results - last 24 hr 08/03/24 08/03/24 08/03/24 11:54 16:31 20:37 POC Capillary Glucose 111 H 103 163 H 08/04/24 07:57 POC Capillary Glucose 114 H
--- NOTE | 2024-08-04 10:02 | P.DS_ITS ---
DS: Admitting Diagnosis Discharge Date 08/04/2024 Admitting Diagnosis DVT/PE/Post-op knee infection DS: Discharge Diagnosis Discharge Diagnosis (1) Status post right knee replacement: Code(s): Z96.651 - Presence of right artificial knee joint Status: Acute (2) Cellulitis of right leg: Code(s): L03.115 - Cellulitis of right lower limb Status: Acute (3) Pulmonary embolism: Qualifiers: Acute cor pulmonale presence: unspecified Chronicity: acute Pulmonary embolism type: unspecified Qualified Code(s): I26.99 - Other pulmonary embolism without acute cor pulmonale Code(s): I26.99 - Other pulmonary embolism without acute cor pulmonale Status: Acute (4) Hypertension: Code(s): I10 - Essential (primary) hypertension Status: Acute (5) Type 2 diabetes mellitus: Code(s): E11.9 - Type 2 diabetes mellitus without complications Status: Acute (6) Chronic obstructive pulmonary disease: Code(s): J44.9 - Chronic obstructive pulmonary disease, unspecified Status: Acute (7) Obstructive sleep apnea on CPAP: Code(s): G47.33 - Obstructive sleep apnea (adult) (pediatric) Status: Acute (8) DVT (deep venous thrombosis): Code(s): I82.409 - Acute embolism and thrombosis of unspecified deep veins of unspecified lower extremity Status: Acute Plan Disposition: Discharged to home with home health DS: Summary Hospital Course Reason for hospitalization: DVT/PE/Post-op knee infe Hospital Course: Admission: Patient was a 69-year-old female with chronic obstructive pulmonary disease, emphysema, obstructive sleep apnea CPAP, hypertension, hyperlipidemia, type 2 diabetes mellitus, depression, anxiety, and arthritis who is being directly admitted to the telemetry floor the emergency department at [facility] for consultation with Dr. Koch due to concerns for postop infection as well as treatment of a pulmonary embolism. Her right knee was replaced on 07/24/2024 and she admits that she has been struggling a bit at home since that time. She lives alone but does have some help. Since surgery she has had swelling and bruising in the right leg but that seems to be getting worse and more recently she has developed warmth and redness of the lower right leg. Overall she has just been fatigued and worn out with occasional nausea which he believes is due to the pain medication. Over the last 3 days she has been feeling short of breath and has had intermittent chest tightness. Due to ongoing symptoms she went to the ER today at [facility]. She denies fever, pleuritic pain, palpitations, syncope, near syncope, vomiting, diarrhea, dysuria, and decrease in urine output. In the ED: Vital signs on arrival include a temperature of 98.9?, pulse 73, respiratory rate 20, blood pressure 141/63, SpO2 75% on room air. Labs were sig nificant for a normal troponin, proBNP 1049, lactic acid 1.2, D-dimer 7948, sodium 140, potassium 3.1, BUN 18, creatinine 0.59, total bilirubin 3.0, AST 18, ALT 20, alkaline phosphatase 108, WBC count 12.3, hemoglobin 10.4, hematocrit 33.2, platelet 213. Chest CTA showed acute pulmonary embolism in the right upper lobe segmental arteries and a medial left upper lobe segmental artery with no evidence of pulmonary infarction or right heart strain, moderate emphysema, and trace pleural effusions. Right lower extremity venous Doppler ultrasound showed no evidence of DVT in the visualized vessels however the distal femoral vein and calf veins could not be assessed. She was given enoxaparin 1 mg/kg as well as cefepime and vancomycin for possible infection. Transfer was initiated to [place] due to concerns for possible infection in that right knee. Hospital Course: Patient was admitted to the medical unit and started IV vancomycin as well as Lovenox 1mg/kg for reported pulmonary embolism from previous hospitalization at which time venous Dopplers were then ordered and patient was found to have DVTs located in the last posterior tibial and peroneal veins. Patient was seen by Orthopedic's who recommended continuation IV antibiotic therapy which could be transitioned to oral therapy prior to discharge. During her hospitalization patient did have episodes of hypoxia was on supplemental oxygen imaging 1-2 L but was maintaining 90% would have moments of desaturation with activity however prior to discharge did perform a oxygen walk study which time patient did not meet for supplemental oxygen. I then transition patient to oral Eliquis with loading dose for 7 days then transition to 5 mg b.i.d. patient will likely need to continue Eliquis for at least 3-6 months this is likely a postop PE/DVT. Patient was also seen Physical and Occupational therapy during her inpatient stay plan for discharge home with her continued home health services continued rehab. Cellulitis of right lower extremity: Overal improvement to swelling and erythema The patient presented to the OSH with complaints of right knee redness and swelling Her right knee was replaced on 07/24/[address] Koch (ortho surg) D/C ceftriaxone and vancomycin, was switched to doxy & keflex PO at discharge. Acute Pulmonary Embolism Patient presented to OSH ED with a chief complaint of SOB Dx with bilateral pulmonary emboli without evidence of heart strain on imaging (EF of 60-65% VIA Echo), patient with mild hypoxia which resolved and she was maintaining 90% and oxygen study she did not meet criteria for oxygen. Patient was transition from Lovenox to oral Eliquis. Need to continue for at least 3-6 months Acute Deep Vein Thrombosis Lower extremity venous Doppler ultrasounds shows left-sided DVT discharged on Eliquis Status at Discharge Functional status at discharge: uses cane/walker Overall status at discharge: patient is progressing back to baseline Time Spent with Patient Time attestation: Total time spent providing and/or coordinating discharge services: Exam Narrative: * GENERAL: Very pleasant, in no acute distress. Well-nourished. * HENT: Moist mucous membranes. * LUNGS: Clear to auscultation bilaterally, no wheezing, rhonchi, or rales. * CARDIOVASCULAR: Regular rate and rhythm. Episodes of nocturnal bradycardia likely secondary to RAS * ABDOMEN: Soft, non-tender a * EXTREMITIES: Peripheral pulses 2+ RLE: Swelling 2+, erythema, healing ecchymosis just superior to knee down throughout foot, knee surgical wound is covered, no drainage noted. ANDREW hose on. LLE: No left calf tenderness. NEUROLOGIC: No focal neurological deficits. CN II-XII grossly intact. SKIN: No rashes or lesions. Warm. DS: Data Data Completed and Pending Labs on day of discharge: Labs from last 24 hours 08/04/24 08/03/24 08/03/24 07:57 20:37 16:31 POC Capillary Glucose 114 H 163 H 103 08/03/24 11:54 POC Capillary Glucose 111 H Preliminary micro results at discharge 08/01/24 22:47 Blood Culture - Preliminary Blood 08/01/24 22:47 Blood Culture - Preliminary Blood Imaging Radiologist's impression: EXAMINATION: US venous doppler LE DATE: 08/01/2024 23:33 INDICATION: Pain and swelling TECHNIQUE: Grayscale ultrasound images without and with compression and Doppler ultrasound images of the bilateral lower extremity veins were obtained. COMPARISON: None. FINDINGS: The visualized portions of right common femoral vein, profunda (deep) femoral vein, femoral vein, popliteal vein, peroneal veins, posterior tibial veins, and greater saphenous vein outflow are patent. The visualized portions of left common femoral vein, profunda femoral vein, femoral vein, popliteal vein and greater saphenous vein outflow are patent. Noncompressibility and absence of flow within the left posterior tibial and peroneal veins consistent with deep venous thrombosis. IMPRESSION: Deep venous thrombosis of the left posterior tibial and peroneal veins, as detailed above. Discharge Plan Discharge Attending physician on discharge: Adi Mattson Consulting providers: Jarred Koch; Yulia Kinney Discharging Clinician: Yulia Kinney Anticipated Discharge Date/Time: 08/04/24 09:55 Patient Disposition: Home with Home Health Service Activity: as tolerated Diet: regular Discharge Instructions: Per Care Coordination, patient to [facility] ([phone]) for PT/OT and jail services. Agency will call to arrange initial visit. Pulmonary embolism/ deep vein thrombosis * You have been start on an oral blood thinner please take as prescribed you will start with a loading dose of Eliquis 10mg twice a day for 7 days and then will transition to 5mg twice a day at least for 6-12 months. * Please follow-up with primary care for monthly refills * I performed a study to determine if you required supplemental oxygen which was not required Post Op Total Knee Replacement Instructions Dr. Jarred Koch [phone] * Dressing to be removed on POD #14. [place] to be removed. RESUME HOME HEALTH at discharge. * You may shower with your dressing but do not submerge in a bath tub. * Do not drive or operate machinery until you are released by Dr. Koch. * Do not walk without a walker for any reason until you are released by Dr. Koch. * Continue to use your ice machine. Please use a towel or pillow case to protect your skin before applying your ice machine. * Do NOT place a pillow under your knee. You may use a pillow from the calf down if needed. This will prevent a flexion contracture postoperatively. * ROMTech: If you were given a ROMTech Portable Connect System preoperatively, you are to begin use on the day you arrive home postoperatively. Our goal is for you to use the machine 5 times per day. The sessions are very short in the beginning and will progress as you progress. We are able to monitor your progress from afar as well as your pain and other reported symptoms. If you have difficulties with the machine, please call . NOTE: Please attempt to use the machine even when in pain as this will leaf conditioner helper your therapy with very gentle motion. * Your first post op appointment was sent to you via mail preoperatively. If you have any questions or are unable to make your appointment, please contact our office for scheduling questions. * Your medications have been sent to your pharmacy. You have been sent home with pain medication. Please pickling grader an over the counter stool softener to prevent constipation due to narcotic use. Please keep this in mind during your postoperative recovery. If you are not experiencing regular bowel movements, please contact our office for further instruction. * Continue NEW anticoagulation per the medicine team recommendations. * Please contact our office with any questions/concerns regarding your knee at [phone]. Patient Instructions: Antibiotic Form Patient Language: Cuban Stand Alone Forms: General Discharge Information Follow-up/Referrals: Jarred Koch MD [Physician] - Keep Reg. Scheduled Appt. Discharge Medications: New cephalexin 500 mg Capsule 500 mg PO Q6HR Qty: 18 0RF doxycycline hyclate 100 mg Tablet 100 mg PO Q12HR Qty: 12 0RF Eliquis 5 mg tablet 5 mg PO BID Qty: 74 0RF Rx Instructions: Please take 10mg (2 tablets) twice a day for 7 days 14 doses total after that you can transition to 5mg (1 tab) twice a day Continued albuterol sulfate [Ventolin HFA] 90 mcg/actuation HFA aerosol inhaler 1 puff inhalation Q4H PRN (Reason: bronchospasm) cholecalciferol (vitamin D3) 50 mcg (2,000 unit) capsule 50 mcg PO DAILY diazepam 2 mg tablet 2 mg PO Q6H PRN (Reason: anxiety) fluticasone propionate 50 mcg/actuation spray,suspension 1 spray intranasal PRN Rx Instructions: administer into each nostril [id number] 40-10-25 mg tablet 1 tablet PO DAILY omeprazole magnesium [Acid Senior Information Security Engineer (omeprazole)] 20 mg capsule,delayed release(DR/EC) 20 mg PO DAILY potassium chloride [Klor-Con 10] 10 mEq tablet extended release 10 meq PO DAILY pravastatin 40 mg tablet 40 mg PO QHS sertraline 25 mg tablet 100 mg PO Q24H nebivolol [Bystolic] 20 mg tablet 20 mg PO DAILY Anoro Ellipta 62.5-25 mcg/actuation blister with device 1 inh inhalation DAILY linagliptin 5 mg tablet 5 mg PO QAM Patient Comments: Diabetes oxycodone-acetaminophen [Percocet] 5-325 mg tablet 1 tablet PO Q6H PRN (Reason: pain) Qty: 40 0RF Discontinued aspirin 81 mg tablet,delayed release (DR/EC) 81 mg PO BID Qty: 40 0RF Patient Comments: for 20 days (started 07/26/23) Date of admission: 08/02/24 07:47 Primary Care Provider: BibiCharlie Admitting Provider: Gisel Pina Attending physician on admission: Myla Huerta Condition: Stable Quality VTE Prophylaxis VTE prophylaxis: pharmacologic ordered (on enoxaparin for pulmonary embolism) -Patient's previous records reviewed on admission -ER notes reviewed in detail on admission -discussed all findings and current treatment plan with patient/Family/POA -Consultations reviewed for recommendations -Patient's disposition for safe discharge discussed with block and case maker Dictation performed by [employer] direct speech recognition software, therefore vibration analyst variants and typographical errors may occur. Hospitalist ALBA Heart Failure (Exclusion) Patient has history of Heart Transplant or Left Ventricular Assistive Device?: No IF YES, STOP HERE Heart Failure (Qualifier) Patient has current or prior documentation of LVEF less than or equal to 40%, or mod/servere depressed LVSF?: No IF NO, STOP HERE
[2024-08-04 12:04] LABS: Glucose Point of Care 120 mg/dl (65-105)
== END 2024-08-04 16:30 | disposition home health service (06) | DRG 176 ==
PROVIDERS: Nurse Practitioner Acute Care; Nurse Practitioner Family; Physician Assistant; Admitting Provider Hospitalist; PCP Hospitalist; Visit Provider Nurse Practitioner Family
DX: I26.99 Other pulmonary embolism without acute cor pulmonale (principal); L03.115 Cellulitis of right lower limb; I82.4Z2 Acute embolism and thrombosis of unspecified deep veins of left distal lower extremity; E11.9 Type 2 diabetes mellitus without complications; E78.5 Hyperlipidemia, unspecified; F41.8 Other specified anxiety disorders; G47.33 Obstructive sleep apnea (adult) (pediatric); I10 Essential (primary) hypertension; J43.9 Emphysema, unspecified; M19.90 Unspecified osteoarthritis, unspecified site; Z96.651 Presence of right artificial knee joint; Z99.89 Dependence on other enabling machines and devices; Z98.41 Cataract extraction status, right eye; Z98.42 Cataract extraction status, left eye; Z90.49 Acquired absence of other specified parts of digestive tract; Z87.891 Personal history of nicotine dependence; Z79.01 Long term (current) use of anticoagulants
CPT/HCPCS: 36415; 80048; 80053; 80202; 82550; 82565; 82948; 83036; 83735; 84145; 85025; 85027; 85610; 85730; 86140; 87040; 87641; 93306; 93970; 94618; 94640; 96365; 97110; 97116; 97161; 97165; A9270; G0378; J0696; J1650; J3370; J7030